=== PATIENT | female | born 1950 | race Caucasian/White ===

== ENCOUNTER 2017-11-04 20:15 | Outpatient (REF) | payer MEDICARE, BC, SELFPAY ==
[2017-11-04 21:07] LABS: HCT 43.4 % (36.0-46.0); Mean Corp. HGB Concentration 34.6 g/dL (32.0-36.0); Mean Corpuscular Hemoglobin 30.5 pg (27.0-33.0); Mean Corpuscular Volume 88.2 fL (80-95); Mean Platelet Volume 10.8 fL (8.0-11.0); Platelet Count 245 x1000/uL (130-400); RBC 4.92 m/cumm (4.00-5.20); RBC Distribution Width 12.8 % (11.7-14.6); White Blood Cell Count 5.22 k/cumm (4.4-10.8)
[2017-11-04 21:49] LABS: ALT 23 U/L (12-78); AST 17 U/L (15-37); Albumin 3.8 g/dL (3.4-5.0); Alkaline Phosphatase 80 U/L (46-116); Anion Gap 11.3 mmol/L (3-11); BUN 9 mg/dL (7-18); Bilirubin, Total 0.3 mg/dL (0.2-1.0); CO2 24.7 mmol/L (21.0-32.0); CREATININE 0.64 mg/dL (0.55-1.02); Calcium 8.8 mg/dL (8.5-10.1); Chloride 105 mmol/L (98-107); Glucose 100 mg/dL (70-100); Potassium 3.6 mmol/L (3.5-5.1); Sodium 141 mmol/L (136-145); TSH 6.13 uIU/mL (0.358-3.74)
== END 2017-11-04 20:16 ==
LOC: NCHCN 20:15
PROVIDERS: PCP Internal Medicine; Visit Provider Internal Medicine
DX: R53.83 Other fatigue (principal); R23.8 Other skin changes; I73.9 Peripheral vascular disease, unspecified; R11.0 Nausea
CPT/HCPCS: 80053; 85027; 84443; 85610

== ENCOUNTER 2017-12-18 09:30 | Outpatient (CLI) | payer MEDICARE, BC, SELFPAY ==
--- NOTE | 2017-12-18 11:37 | DI.RAD_ITS ---
SYMPTOMS/DIAGNOSIS: INTERMITTENT PAIN, R52, H/O BREAST CA, Z85.3 RIGHT HIP AND PELVIS: The pelvic bones are intact. The right hip is unremarkable. Evaluation of the femur reveals an old healed fracture involving the proximal femoral shaft. Intramedullary ernst and screw fixation device in place. In addition there is an evident TKR in good position. No localized area of osteosclerosis, osteolysis or bony expansion is seen.
== END 2017-12-18 09:50 ==
PROVIDERS: PCP Internal Medicine; Visit Provider Internal Medicine
DX: M25.551 Pain in right hip (principal); Z96.651 Presence of right artificial knee joint; Z85.3 Personal history of malignant neoplasm of breast
CPT/HCPCS: 73502

== ENCOUNTER 2017-12-25 20:33 | Outpatient (REF) | payer MEDICARE, BC, SELFPAY | END 2017-12-25 20:53 | LOC: NCHCN 20:33 | PROVIDERS: PCP Internal Medicine; Visit Provider Internal Medicine | DX: E03.9 Hypothyroidism, unspecified (principal) | CPT/HCPCS: 84443 ==

== ENCOUNTER 2018-01-05 08:51 | Emergency (ER) | payer MEDICARE, BC, SELFPAY ==
[2018-01-05 08:56] VITALS: BP 150/83; PULSE 78; RESP 17; TEMP 36.7; O2SAT 96
--- NOTE | 2018-01-05 09:41 | W.ED.GENAD ---
Discharge Plan Disposition Patient Disposition: [facility] Condition: Serious Discharge Details Chief Complaint: PsychEval Clinical Impression: Suicidal thoughts Primary Care Provider: Ag Trent ED Provider: Noe Pearce Home Meds and New Rx's Prescriptions: Continue multivitamin [Daily Multiple] 1 EACH tablet 1 ea PO DAILY RF: 0 pravastatin 40 MG tablet 40 mg PO DAILY RF: 0 triazolam 0.125 MG tablet 0.125 mg PO PRN RF: 0 omeprazole 20 MG capsule,delayed release(DR/EC) 20 mg PO PRN RF: 0 aspirin [Aspirin Low-Strength] 81 MG tablet,chewable 81 mg PO DAILY RF: 0 diazepam 5 MG tablet 5 mg PO QD PRN RF: 0 cholecalciferol (vitamin D3) 2,000 UNIT tablet 1,000 unit PO RF: 0 levothyroxine [Synthroid] 200 MCG tablet 200 mcg PO DAILY RF: 0 tamoxifen 10 MG tablet 20 mg PO DAILY RF: 0 Discharge Instructions Referrals: Ag Trent MD [Primary Care Provider] - Discharge Data Discharge Date/Time-TO BE ENTERED AT DEPARTURE: 01/06/18 09:42 Medical Decision Making <Jasmyne Pearce MD - Last Filed: 01/13/18 12:20> Narda Rivera 7-year-old woman with history of breast cancer 3 years ago now in remission, GERD, hypothyroidism, depression/anxiety presenting to the emergency department with depression over the past 2 months and suicidal ideation with plan to kill herself by slitting her wrist. On exam patient is well and nontoxic-appearing, calm and cooperative. There are no apparent hallucinations, no melody. Exam/history not consistent with psychosis, acute non-psychiatric intracranial pathology. Will screen for metabolic derangements. Plan for mental health evaluation. 1-1 ordered, powerhouse engineer made aware, mental health contacted. Labs okay. After mental health assessment, plan for Pt to be voluntary inpt for SI. Pt signed out to Dr. Huston with placement in facility pending. Clinical Impression: suidalicity Disposition: still a patient Medical Records Medical records reviewed: Yes I reviewed the patient's medical records. Lab Data Lab results reviewed: Yes I reviewed the patient's lab results. Laboratory Tests Range/Units 01/05/18 01/05/18 01/05/18 09:00 09:00 10:10 WBC (4.4-10.8) k/cumm RBC (4.00-5.20) m/cumm Hgb (12.0-15.5) g/dL Hct (36.0-46.0) % MCV (80-95) fL MCH (27.0-33.0) pg MCHC (32.0-36.0) g/dL RDW (11.7-14.6) % Plt Count (130-400) x1000/uL MPV (8.0-11.0) fL Immature Gran % Neutrophils % Lymphocytes % Monocytes % Eosinophils % Basophils % Absolute Neutrophils (1.2-6.7) k/cumm Absolute Lymphocytes (1.2-3.4) k/cumm Absolute Monocytes (0.11-0.7) k/cumm Absolute Eosinophils (0.0-0.7) k/cumm Absolute Basophils (0.0-0.2) k/cumm Sodium (136-145) mmol/L 139 Potassium (3.5-5.1) mmol/L 3.9 Chloride (98-107) mmol/L 106 Carbon Dioxide (21.0-32.0) mmol/L 26.7 Anion Gap (3-11) mmol/L 6.3 BUN (7-18) mg/dL 13 Creatinine (0.55-1.02) mg/dL 0.66 Estimated GFR/1.73 m2 (mL/min/1.73m2) >= 60.00 Glucose (70-100) mg/dL 105 H Calcium (8.5-10.1) mg/dL 8.3 L Total Bilirubin (0.2-1.0) mg/dL 0.4 AST (15-37) U/L 16 ALT (12-78) U/L 18 Alkaline Phosphatase (46-116) U/L 74 Total Protein (6.4-8.2) g/dL 6.6 Albumin (3.4-5.0) g/dL 3.2 L TSH (0.358-3.74) uIU/mL 5.38 H Free T4 (0.76-1.46) ng/dL 1.45 Urine Color (Yellow) Yellow Urine Clarity Clear Urine pH (5-8) 6.0 Ur Specific [place] (1.005-1.025) >= 1.030 H Urine Protein (Negative) mg/dL Negative Urine Ketones (Negative) mg/dL Negative Urine Blood (Negative) Trace-lysed H Urine Nitrite (Negative) Negative Urine Bilirubin (Negative) Negative Urine Urobilinogen (Up TO 0.2) EU/dL 0.2 Ur Leukocyte Esterase (Negative) Negative Urine RBC Not Applicable Urine WBC Not Applicable Ur Epithelial Cells (Negative) HPF Many Urine Crystals Not Applicable Urine Bacteria Not Applicable Urine Mucus Not Applicable Ur Culture Indicated? No/sq. contamination Urine Glucose (Negative) mg/dL Negative Urine Opiates Screen (Negative) Negative Urine Methadone Screen (Negative) Negative Acetaminophen (10-30) ug/mL < 2 L Ur Barbiturates Screen (Negative) Negative Ur Tricyclics Screen (Negative) Negative Ur Amphetamines Screen (Negative) Negative U Benzodiazepines Scrn (Negative) Negative Urine Cocaine Screen (Negative) Negative Ur THC Screen (Negative) Positive Range/Units 01/05/18 10:10 WBC (4.4-10.8) k/cumm 4.11 L RBC (4.00-5.20) m/cumm 4.82 Hgb (12.0-15.5) g/dL 14.7 Hct (36.0-46.0) % 42.1 MCV (80-95) fL 87.3 MCH (27.0-33.0) pg 30.5 MCHC (32.0-36.0) g/dL 34.9 RDW (11.7-14.6) % 12.3 Plt Count (130-400) x1000/uL 227 MPV (8.0-11.0) fL 10.0 Immature Gran % 0.2 Neutrophils % 58.5 Lymphocytes % 28.5 Monocytes % 10.9 Eosinophils % 1.7 Basophils % 0.2 Absolute Neutrophils (1.2-6.7) k/cumm 2.40 Absolute Lymphocytes (1.2-3.4) k/cumm 1.17 L Absolute Monocytes (0.11-0.7) k/cumm 0.45 Absolute Eosinophils (0.0-0.7) k/cumm 0.07 Absolute Basophils (0.0-0.2) k/cumm 0.01 Sodium (136-145) mmol/L Potassium (3.5-5.1) mmol/L Chloride (98-107) mmol/L Carbon Dioxide (21.0-32.0) mmol/L Anion Gap (3-11) mmol/L BUN (7-18) mg/dL Creatinine (0.55-1.02) mg/dL Estimated GFR/1.73 m2 (mL/min/1.73m2) Glucose (70-100) mg/dL Calcium (8.5-10.1) mg/dL Total Bilirubin (0.2-1.0) mg/dL AST (15-37) U/L ALT (12-78) U/L Alkaline Phosphatase (46-116) U/L Total Protein (6.4-8.2) g/dL Albumin (3.4-5.0) g/dL TSH (0.358-3.74) uIU/mL Free T4 (0.76-1.46) ng/dL Urine Color (Yellow) Urine Clarity Urine pH (5-8) Ur Specific [place] (1.005-1.025) Urine Protein (Negative) mg/dL Urine Ketones (Negative) mg/dL Urine Blood (Negative) Urine Nitrite (Negative) Urine Bilirubin (Negative) Urine Urobilinogen (Up TO 0.2) EU/dL Ur Leukocyte Esterase (Negative) Urine RBC Urine WBC Ur Epithelial Cells (Negative) HPF Urine Crystals Urine Bacteria Urine Mucus Ur Culture Indicated? Urine Glucose (Negative) mg/dL Urine Opiates Screen (Negative) Urine Methadone Screen (Negative) Acetaminophen (10-30) ug/mL Ur Barbiturates Screen (Negative) Ur Tricyclics Screen (Negative) Ur Amphetamines Screen (Negative) U Benzodiazepines Scrn (Negative) Urine Cocaine Screen (Negative) Ur THC Screen (Negative) ECG Data Attestation: I personally reviewed and interpreted this ECG (s) as follows: Interpretation: EKG shows normal sinus rhythm at 69 with normal axis, no acute ischemic changes, no STEMI <Ibrahima Huston MD - Last Filed: 01/05/18 18:32> Received signout from Dr. Reny Pearce. Please see her note regarding patient's presentation and workup. Patient continues to await voluntary placement for major depression and suicidality. She is been pleasant interactive with staff throughout the evening shift. She states that she does Ambien at night for sleep and states that given her poor sleep she would like some for this evening, I feel this is appropriate and will order the nighttime med. She is stable and will be signed out to the oncoming overnight physician pending further disposition. HPI <Jasmyne Pearce MD - Last Filed: 01/13/18 12:20> General Mode of arrival: ambulatory. Date/Time Provider Initiated Documentation: 01/05/18 09:15. Limitations to Documentation: no limitations. Information obtained by: patient. HPI Narrative: Narda Rivera is a 67-year-old woman with history of GERD, hypothyroidism, breast cancer 3 years ago now in remission, depression/anxiety presenting to the emergency department with suicidal ideation. Patient reports that over the past 2 months she has become increasingly depressed. She has been on Zoloft and Prozac for this but has stopped both medications as she has side effects from them and they do not seem to help her. Patient reports that her depression has reached a point where she is constantly thinking about suicide. She reports that the only way I can do it would be to slit my wrists. She reports that she does own a gun, but she had a friend of hers hide it somewhere on her property and she does not know where it is. Patient reports that she has lived alone for the past 10 years, currently has a house meet and has been living with her for the past 6 months, although he is out of town over the past few days. She gets along well with this person and they are not romantically involved. She reports that she has some strong social ties in the community but does not have family members locally. She sees a therapist, Ramon Madrid, for her depression, but she is only able to see him every 2 weeks because of his full schedule. She reports that she has had a queasy stomach for the past 2 months, and this coincides with her worsening depression. That is, on days when she feels more depressed, her stomach queasiness is worse. She denies any pain, fever, vomiting/diarrhea/constipation/urinary symptoms, cough, shortness of breath. Feels otherwise in her usual state of health. Has been prescribed Effexor but has not started taking it yet. Related Data Home Medications Medication Instructions Recorded Confirmed aspirin [Aspirin Low-Strength] 81 mg PO DAILY tab-cap 12/23/14 01/05/18 cholecalciferol (vitamin D3) 1,000 unit PO 12/23/14 diazepam 5 mg PO QD PRN 12/23/14 01/05/18 multivitamin [Daily Multiple] 1 ea PO DAILY 12/23/14 01/05/18 omeprazole 20 mg PO PRN tab-cap 12/23/14 01/05/18 pravastatin 40 mg PO DAILY tab-cap 12/23/14 01/05/18 triazolam 0.125 mg PO PRN tab-cap 12/23/14 01/05/18 levothyroxine [Synthroid] 200 mcg PO DAILY tab-cap 02/13/15 01/05/18 tamoxifen 20 mg PO DAILY tab-cap 02/27/16 01/05/18 Allergies Allergy/AdvReac Type Severity Reaction Status Date / Time morphine AdvReac Severe Nausea/Vomi Unverified 09/19/16 09:14 ting General Stated Complaint: PsychEval DREW: 2 Review of Systems <Jasmyne Pearce MD - Last Filed: 01/13/18 12:20> Review of Systems Constitutional: denies fevers Eyes: denies eye pain ENT: denies facial pain, dental pain, sore throat Cardiovascular: denies chest pain, edema Respiratory: denies SOB, cough GI: denies abdominal pain, vomiting, diarrhea, reports queasiness : denies flank pain MSK: denies back pain, neck pain, arthralgias, myalgias Skin: denies rash Neuro: denies headaches, lightheadedness, weakness Psych: denies hallucinations, reports depression, SI Exam <Jasmyne Pearce MD - Last Filed: 01/13/18 12:20> Narrative Exam Narrative: Constitutional: well and [id number], pleasant, conversing normally HENT: head atraumatic, normocephalic normal inspection, mucous membranes moist Eyes: conjunctiva normal, sclera normal, pupils 3mm b/l Neck: no stridor, normal ROM, trachea midline Chest: normal inspection Resp: normal work of breathing, LCTAB Cardio: normal rate, normal rhythm, no murmur appreciated GI: abdomen soft, non-tender, non-distended Skin: warm, dry, normal color, no rash Neuro: alert, not altered, grossly non-focal, normal tone Ext: no edema Psych: normal mood, normal affect, normal behavior Course <Jasmyne Pearce MD - Last Filed: 01/13/18 12:20> Vital Signs Temperature 36.7 C 01/05/18 08:56 Pulse 78 01/05/18 08:56 Respiratory Rate 17 01/05/18 08:56 Blood Pressure 150/83 H 01/05/18 08:56 Pulse Oximetry 96 01/05/18 08:56 Temperature 36.7 C 01/05/18 08:56 Pulse 78 01/05/18 08:56 Respiratory Rate 17 01/05/18 08:56 Respiratory Effort 01/05/18 08:59 Blood Pressure 150/83 H 01/05/18 08:56 Pulse Oximetry 96 01/05/18 08:56 Oxygen Delivery Method Room Air 01/05/18 08:56 Oxygen Flow Rate 0 01/05/18 08:56 Pain Level 0 01/05/18 08:56 Sign Out <Jasmyne Pearce MD - Last Filed: 01/13/18 12:20> Sign Out Data: Sign Out Comment: Patient signed out to Dr. Huston pending psychiatric bed placement Last updated by Jasmyne Pearce MD at 01/05/18 16:58
[2018-01-05 09:46] LABS: Bilirubin Negative (Negative); Blood Trace-lysed (Negative); Clarity Clear; Glucose Negative (Negative); Ketones Negative (Negative); Leukocyte Esterase Negative (Negative); Nitrite Negative (Negative); Specific Gravity >= 1.030 (1.005-1.025); Urobilinogen 0.2 EU/dL (Up TO 0.2)
--- NOTE | 2018-01-05 09:59 | ED.GENADUL_ITS ---
Discharge Plan Disposition Patient Disposition: [facility] Condition: Serious Discharge Details Chief Complaint: PsychEval Clinical Impression: Suicidal thoughts Primary Care Provider: Ag Trent ED Provider: Noe Pearce Home Meds and New Rx's Prescriptions: Continue multivitamin [Daily Multiple] 1 EACH tablet 1 ea PO DAILY RF: 0 pravastatin 40 MG tablet 40 mg PO DAILY RF: 0 triazolam 0.125 MG tablet 0.125 mg PO PRN RF: 0 omeprazole 20 MG capsule,delayed release(DR/EC) 20 mg PO PRN RF: 0 aspirin [Aspirin Low-Strength] 81 MG tablet,chewable 81 mg PO DAILY RF: 0 diazepam 5 MG tablet 5 mg PO QD PRN RF: 0 cholecalciferol (vitamin D3) 2,000 UNIT tablet 1,000 unit PO RF: 0 levothyroxine [Synthroid] 200 MCG tablet 200 mcg PO DAILY RF: 0 tamoxifen 10 MG tablet 20 mg PO DAILY RF: 0 Discharge Instructions Referrals: Ag Trent MD [Primary Care Provider] - Discharge Data Discharge Date/Time-TO BE ENTERED AT DEPARTURE: 01/06/18 09:42 Medical Decision Making <Jasmyne Pearce MD - Last Filed: 01/13/18 12:20> Narda Rivera 7-year-old woman with history of breast cancer 3 years ago now in remission, GERD, hypothyroidism, depression/anxiety presenting to the emergency department with depression over the past 2 months and suicidal ideation with plan to kill herself by slitting her wrist. On exam patient is well and nontoxic-appearing, calm and cooperative. There are no apparent hallucinations, no melody. Exam/history not consistent with psychosis, acute non-psychiatric intracranial pathology. Will screen for metabolic derangements. Plan for mental health evaluation. 1-1 ordered, linen room houseperson made aware, mental health contacted. Labs okay. After mental health assessment, plan for Pt to be voluntary inpt for SI. Pt signed out to Dr. Huston with placement in facility pending. Clinical Impression: suidalicity Disposition: still a patient Medical Records Medical records reviewed: Yes I reviewed the patient's medical records. Lab Data Lab results reviewed: Yes I reviewed the patient's lab results. Laboratory Tests Range/Units 01/05/18 01/05/18 01/05/18 09:00 09:00 10:10 WBC (4.4-10.8) k/cumm RBC (4.00-5.20) m/cumm Hgb (12.0-15.5) g/dL Hct (36.0-46.0) % MCV (80-95) fL MCH (27.0-33.0) pg MCHC (32.0-36.0) g/dL RDW (11.7-14.6) % Plt Count (130-400) x1000/uL MPV (8.0-11.0) fL Immature Gran % Neutrophils % Lymphocytes % Monocytes % Eosinophils % Basophils % Absolute Neutrophils (1.2-6.7) k/cumm Absolute Lymphocytes (1.2-3.4) k/cumm Absolute Monocytes (0.11-0.7) k/cumm Absolute Eosinophils (0.0-0.7) k/cumm Absolute Basophils (0.0-0.2) k/cumm Sodium (136-145) mmol/L 139 Potassium (3.5-5.1) mmol/L 3.9 Chloride (98-107) mmol/L 106 Carbon Dioxide (21.0-32.0) mmol/L 26.7 Anion Gap (3-11) mmol/L 6.3 BUN (7-18) mg/dL 13 Creatinine (0.55-1.02) mg/dL 0.66 Estimated GFR/1.73 m2 (mL/min/1.73m2) >= 60.00 Glucose (70-100) mg/dL 105 H Calcium (8.5-10.1) mg/dL 8.3 L Total Bilirubin (0.2-1.0) mg/dL 0.4 AST (15-37) U/L 16 ALT (12-78) U/L 18 Alkaline Phosphatase (46-116) U/L 74 Total Protein (6.4-8.2) g/dL 6.6 Albumin (3.4-5.0) g/dL 3.2 L TSH (0.358-3.74) uIU/mL 5.38 H Free T4 (0.76-1.46) ng/dL 1.45 Urine Color (Yellow) Yellow Urine Clarity Clear Urine pH (5-8) 6.0 Ur Specific [place] (1.005-1.025) >= 1.030 H Urine Protein (Negative) mg/dL Negative Urine Ketones (Negative) mg/dL Negative Urine Blood (Negative) Trace-lysed H Urine Nitrite (Negative) Negative Urine Bilirubin (Negative) Negative Urine Urobilinogen (Up TO 0.2) EU/dL 0.2 Ur Leukocyte Esterase (Negative) Negative Urine RBC Not Applicable Urine WBC Not Applicable Ur Epithelial Cells (Negative) HPF Many Urine Crystals Not Applicable Urine Bacteria Not Applicable Urine Mucus Not Applicable Ur Culture Indicated? No/sq. contamination Urine Glucose (Negative) mg/dL Negative Urine Opiates Screen (Negative) Negative Urine Methadone Screen (Negative) Negative Acetaminophen (10-30) ug/mL < 2 L Ur Barbiturates Screen (Negative) Negative Ur Tricyclics Screen (Negative) Negative Ur Amphetamines Screen (Negative) Negative U Benzodiazepines Scrn (Negative) Negative Urine Cocaine Screen (Negative) Negative Ur THC Screen (Negative) Positive Range/Units 01/05/18 10:10 WBC (4.4-10.8) k/cumm 4.11 L RBC (4.00-5.20) m/cumm 4.82 Hgb (12.0-15.5) g/dL 14.7 Hct (36.0-46.0) % 42.1 MCV (80-95) fL 87.3 MCH (27.0-33.0) pg 30.5 MCHC (32.0-36.0) g/dL 34.9 RDW (11.7-14.6) % 12.3 Plt Count (130-400) x1000/uL 227 MPV (8.0-11.0) fL 10.0 Immature Gran % 0.2 Neutrophils % 58.5 Lymphocytes % 28.5 Monocytes % 10.9 Eosinophils % 1.7 Basophils % 0.2 Absolute Neutrophils (1.2-6.7) k/cumm 2.40 Absolute Lymphocytes (1.2-3.4) k/cumm 1.17 L Absolute Monocytes (0.11-0.7) k/cumm 0.45 Absolute Eosinophils (0.0-0.7) k/cumm 0.07 Absolute Basophils (0.0-0.2) k/cumm 0.01 Sodium (136-145) mmol/L Potassium (3.5-5.1) mmol/L Chloride (98-107) mmol/L Carbon Dioxide (21.0-32.0) mmol/L Anion Gap (3-11) mmol/L BUN (7-18) mg/dL Creatinine (0.55-1.02) mg/dL Estimated GFR/1.73 m2 (mL/min/1.73m2) Glucose (70-100) mg/dL Calcium (8.5-10.1) mg/dL Total Bilirubin (0.2-1.0) mg/dL AST (15-37) U/L ALT (12-78) U/L Alkaline Phosphatase (46-116) U/L Total Protein (6.4-8.2) g/dL Albumin (3.4-5.0) g/dL TSH (0.358-3.74) uIU/mL Free T4 (0.76-1.46) ng/dL Urine Color (Yellow) Urine Clarity Urine pH (5-8) Ur Specific [place] (1.005-1.025) Urine Protein (Negative) mg/dL Urine Ketones (Negative) mg/dL Urine Blood (Negative) Urine Nitrite (Negative) Urine Bilirubin (Negative) Urine Urobilinogen (Up TO 0.2) EU/dL Ur Leukocyte Esterase (Negative) Urine RBC Urine WBC Ur Epithelial Cells (Negative) HPF Urine Crystals Urine Bacteria Urine Mucus Ur Culture Indicated? Urine Glucose (Negative) mg/dL Urine Opiates Screen (Negative) Urine Methadone Screen (Negative) Acetaminophen (10-30) ug/mL Ur Barbiturates Screen (Negative) Ur Tricyclics Screen (Negative) Ur Amphetamines Screen (Negative) U Benzodiazepines Scrn (Negative) Urine Cocaine Screen (Negative) Ur THC Screen (Negative) ECG Data Attestation: I personally reviewed and interpreted this ECG (s) as follows: Interpretation: EKG shows normal sinus rhythm at 69 with normal axis, no acute ischemic changes, no STEMI <Ibrahima Huston MD - Last Filed: 01/05/18 18:32> Received signout from Dr. Reny Pearce. Please see her note regarding patient' s presentation and workup. Patient continues to await voluntary placement for major depression and suicidality. She is been pleasant interactive with staff throughout the evening shift. She states that she does Ambien at night for sleep and states that given her poor sleep she would like some for this evening , I feel this is appropriate and will order the nighttime med. She is stable and will be signed out to the oncoming overnight physician pending further disposition. HPI <Jasmyne Pearce MD - Last Filed: 01/13/18 12:20> General Mode of arrival: ambulatory . Date/Time Provider Initiated Documentation: 01/05/18 09:15 . Limitations to Documentation: no limitations . Information obtained by: patient . HPI Narrative: Narda Rivera is a 67-year-old woman with history of GERD, hypothyroidism, breast cancer 3 years ago now in remission, depression/anxiety presenting to the emergency department with suicidal ideation. Patient reports that over the past 2 months she has become increasingly depressed. She has been on Zoloft and Prozac for this but has stopped both medications as she has side effects from them and they do not seem to help her. Patient reports that her depression has reached a point where she is constantly thinking about suicide. She reports that the only way I can do it would be to slit my wrists . She reports that she does own a gun, but she had a friend of hers hide it somewhere on her property and she does not know where it is. Patient reports that she has lived alone for the past 10 years, currently has a house meet and has been living with her for the past 6 months, although he is out of town over the past few days. She gets along well with this person and they are not romantically involved. She reports that she has some strong social ties in the community but does not have family members locally. She sees a therapist, Ramon Madrid, for her depression, but she is only able to see him every 2 weeks because of his full schedule. She reports that she has had a queasy stomach for the past 2 months, and this coincides with her worsening depression. That is, on days when she feels more depressed, her stomach queasiness is worse. She denies any pain, fever, vomiting/diarrhea/constipation/urinary symptoms, cough, shortness of breath. Feels otherwise in her usual state of health. Has been prescribed Effexor but has not started taking it yet. Related Data Home Medications Medication Instructions Recorded Confirmed aspirin [Aspirin Low-Strength] 81 mg PO DAILY tab-cap 12/23/14 01/05/18 cholecalciferol (vitamin D3) 1,000 unit PO 12/23/14 diazepam 5 mg PO QD PRN 12/23/14 01/05/18 multivitamin [Daily Multiple] 1 ea PO DAILY 12/23/14 01/05/18 omeprazole 20 mg PO PRN tab-cap 12/23/14 01/05/18 pravastatin 40 mg PO DAILY tab-cap 12/23/14 01/05/18 triazolam 0.125 mg PO PRN tab-cap 12/23/14 01/05/18 levothyroxine [Synthroid] 200 mcg PO DAILY tab-cap 02/13/15 01/05/18 tamoxifen 20 mg PO DAILY tab-cap 02/27/16 01/05/18 Allergies Allergy/AdvReac Type Severity Reaction Status Date / Time morphine AdvReac Severe Nausea/Vomi Unverified 09/19/16 09:14 ting General Stated Complaint: PsychEval DREW: 2 Review of Systems <Jasmyne Pearce MD - Last Filed: 01/13/18 12:20> Review of Systems Constitutional: denies fevers Eyes: denies eye pain ENT: denies facial pain, dental pain, sore throat Cardiovascular: denies chest pain, edema Respiratory: denies SOB, cough GI: denies abdominal pain, vomiting, diarrhea, reports queasiness : denies flank pain MSK: denies back pain, neck pain, arthralgias, myalgias Skin: denies rash Neuro: denies headaches, lightheadedness, weakness Psych: denies hallucinations, reports depression, SI Exam <Jasmyne Pearce MD - Last Filed: 01/13/18 12:20> Narrative Exam Narrative: Constitutional: well and [id number], pleasant, conversing normally HENT: head atraumatic, normocephalic normal inspection, mucous membranes moist Eyes: conjunctiva normal, sclera normal, pupils 3mm b/l Neck: no stridor, normal ROM, trachea midline Chest: normal inspection Resp: normal work of breathing, LCTAB Cardio: normal rate, normal rhythm, no murmur appreciated GI: abdomen soft, non-tender, non-distended Skin: warm, dry, normal color, no rash Neuro: alert, not altered, grossly non-focal, normal tone Ext: no edema Psych: normal mood, normal affect, normal behavior Course <Jasmyne Pearce MD - Last Filed: 01/13/18 12:20> Vital Signs Temperature 36.7 C 01/05/18 08:56 Pulse 78 01/05/18 08:56 Respiratory Rate 17 01/05/18 08:56 Blood Pressure 150/83 H 01/05/18 08:56 Pulse Oximetry 96 01/05/18 08:56 Temperature 36.7 C 01/05/18 08:56 Pulse 78 01/05/18 08:56 Respiratory Rate 17 01/05/18 08:56 Respiratory Effort 01/05/18 08:59 Blood Pressure 150/83 H 01/05/18 08:56 Pulse Oximetry 96 01/05/18 08:56 Oxygen Delivery Method Room Air 01/05/18 08:56 Oxygen Flow Rate 0 01/05/18 08:56 Pain Level 0 01/05/18 08:56 Sign Out <Jasmyne Pearce MD - Last Filed: 01/13/18 12:20> Sign Out Data: Sign Out Comment: Patient signed out to Dr. Huston pending psychiatric bed placement Last updated by Jasmyne Pearce MD at 01/05/18 16:58
[2018-01-05 10:01] LABS: *AMPHETAMINES SCREEN URINE Negative (Negative); *BARBITURATES SCREEN URINE Negative (Negative); *BENZODIAZEPINES SCREEN URINE Negative (Negative); Cannabinoids THC POSITIVE (Negative); Cocaine Screen,Urine Negative (Negative); METHADONE URINE SCREEN Negative (Negative); OPIATES URINE SCREEN Negative (Negative)
[2018-01-05 10:06] LABS: C & S Indicated? No/Sq. Contamination; Epithelial Cells Many HPF (Negative)
[2018-01-05 10:09] LABS: Tricyclic Antidepressants Negative (Negative)
[2018-01-05 10:20] LABS: Abs Immature Grans 0.01 k/cumm (0.0-0.09); Absolute Basophil Count 0.01 k/cumm (0.0-0.2); Absolute Eosinophil Count 0.07 k/cumm (0.0-0.7); Absolute Lymphocyte Count 1.17 k/cumm (1.2-3.4); Absolute Monocyte Count 0.45 k/cumm (0.11-0.7); Basophils % 0.2; Eosinophils % 1.7; HCT 42.1 % (36.0-46.0); HGB 14.7 g/dL (12.0-15.5); Immature Grans % 0.2; Lymphocytes % 28.5; Mean Corp. HGB Concentration 34.9 g/dL (32.0-36.0); Mean Corpuscular Hemoglobin 30.5 pg (27.0-33.0); Mean Corpuscular Volume 87.3 fL (80-95); Monocytes % 10.9; Neutrophils % 58.5; Platelet Count 227 x1000/uL (130-400); RBC 4.82 m/cumm (4.00-5.20); RBC Distribution Width 12.3 % (11.7-14.6); White Blood Cell Count 4.11 k/cumm (4.4-10.8)
[2018-01-05 10:42] LABS: ALT 18 U/L (12-78); AST 16 U/L (15-37); Albumin 3.2 g/dL (3.4-5.0); Alkaline Phosphatase 74 U/L (46-116); Anion Gap 6.3 mmol/L (3-11); BUN 13 mg/dL (7-18); Bilirubin, Total 0.4 mg/dL (0.2-1.0); CO2 26.7 mmol/L (21.0-32.0); CREATININE 0.66 mg/dL (0.55-1.02); Calcium 8.3 mg/dL (8.5-10.1); Chloride 106 mmol/L (98-107); Glucose 105 mg/dL (70-100); Potassium 3.9 mmol/L (3.5-5.1); Sodium 139 mmol/L (136-145); TSH (W/Ref FT4) 5.38 uIU/mL (0.358-3.74); Total Protein 6.6 g/dL (6.4-8.2)
[2018-01-05 10:45] LABS: Acetaminophen < 2 ug/mL (10-30)
[2018-01-05 11:43] LABS: FREE T4 1.45 ng/dL (0.76-1.46)
--- NOTE | 2018-01-05 11:50 | PDOC.ERCMPRO ---
Care Management Progress Note 01/05 at 1140-Discussion with Dr. Colten Pearce pertaining to psychiatric consult. At this time, Dr. Pearce is having mental health come in and evaluate the patient. Discussed holding care plan with Dr. Pearce until patient evaluated by mental health. Holding care plan distributed to appropriate staff. Discussion with Katy Nursing Convention Planner who is calling in a CPSO. Will huddle once mental health has evaluated patient and formulate a new care plan, Emergent Holding Care Plan Narda Nicole 01/05/18 1. Suicide Precautions 2. Patient to be in paper clothing 3. Comfort bath system for personal hygiene 4. No personal belongings in room 5. Finger foods only 6. No telephone 7. No visitors 8. Supervised Bathroom Privileges 9. Patient to have one on one, licensed sitter, HEAT TREAT OPERATOR, PHLEBOTOMY TECH, screed operator. 10. May have crayons, paper, and activities (if appropriate) from the Mental Health Activity Cart in ED This is a holding care plan only. This Care Plan will remain in effect until Mental Health evaluates, huddles with staff, and new care plan is developed.
--- NOTE | 2018-01-05 11:54 | CMPROGNOTE_ITS ---
Care Management Progress Note 01/05 at 1140-Discussion with Dr. Colten Pearce pertaining to psychiatric consult. At this time, Dr. Pearce is having mental health come in and evaluate the patient. Discussed holding care plan with Dr. Pearce until patient evaluated by mental health. Holding care plan distributed to appropriate staff. Discussion with Katy Nursing Disabilities Caregiver who is calling in a CPSO. Will huddle once mental health has evaluated patient and formulate a new care plan, Emergent Holding Care Plan Narda Nicole 01/05/18 1. Suicide Precautions 2. Patient to be in paper clothing 3. Comfort bath system for personal hygiene 4. No personal belongings in room 5. Finger foods only 6. No telephone 7. No visitors 8. Supervised Bathroom Privileges 9. Patient to have one on one, licensed sitter, WASTE MINIMIZATION TECHNICIAN, AUTOMOTIVE SPECIALTY TECHNICIAN, precision thread grinder operator. 10. May have crayons, paper, and activities (if appropriate) from the Mental Health Activity Cart in ED This is a holding care plan only. This Care Plan will remain in effect until Mental Health evaluates, huddles with staff, and new care plan is developed.
--- NOTE | 2018-01-05 13:38 | NUR.NOTE ---
Resting in bed speaking with registration. Provided with a banana as per pt request Nursing Note:
[2018-01-05 13:42] VITALS: BP 148/80; PULSE 89; RESP 16; TEMP 36.7; O2SAT 99
--- NOTE | 2018-01-05 13:49 | PDOC.MHCN ---
Date of service: 01/05/18 Time of Service: 13:49 Mental Health Crisis Note Presenting Issue How did you arrive at the ED and why did you come: Patient arrived at the Emergency Department for thoughts of suicide. Precipitating Factors Patient is actively suicidal with a plan. She states that she cannot be safe if she goes home. She states that she will slut her wrists as a method of suicide. She cannot identify any life stresses that would exacerbate thoughts/feelings of suicide. She states that she has a good life, that she has friends but she has been feeling more and more depressed. She does state that she feels as if she has not worked though the of her and then the of her boyfriend after her husbands . She states that her only deterrents are her advent friends and her dog. The patient is visibly sad and wants to get help as she doesn't want to feel this way any more. Disposition BEHAVIOR: The client cooperative. She is laying down on the hospital bed talking with this machine sign writer. She is requested that this machine sign writer keep the room lights off. EYE CONTACT: Patient makes direct eye contact MOOD: Sad and tearful at times AFFECT: Appropriate for conversation APPETITE: Patient states that she has not eaten much SLEEP(trouble falling/staying asleep: Patient states that she has only been able to sleep 3-4 hours a night the past few night Plan Due to the patient being actively suicidal with a plan and unable to contract for safety she will remain at the hospital until a bed becomes available at a mental health treatment facility. Signature Clinician's Name/Title: Sandra Stephens [facility] Emergency Clinician
--- NOTE | 2018-01-05 14:03 | PDOC.MHCN_ITS ---
Date of service: 01/05/18 Time of Service: 13:49 Mental Health Crisis Note Presenting Issue How did you arrive at the ED and why did you come: Patient arrived at the Emergency Department for thoughts of suicide. Precipitating Factors Patient is actively suicidal with a plan. She states that she cannot be safe if she goes home. She states that she will slut her wrists as a method of suicide. She cannot identify any life stresses that would exacerbate thoughts/feelings of suicide. She states that she has a good life, that she has friends but she has been feeling more and more depressed. She does state that she feels as if she has not worked though the of her and then the of her boyfriend after her husbands . She states that her only deterrents are her baptist friends and her dog. The patient is visibly sad and wants to get help as she doesn't want to feel this way any more. Disposition BEHAVIOR: The client cooperative. She is laying down on the hospital bed talking with this engineering technical writer. She is requested that this engineering technical writer keep the room lights off. EYE CONTACT: Patient makes direct eye contact MOOD: Sad and tearful at times AFFECT: Appropriate for conversation APPETITE: Patient states that she has not eaten much SLEEP(trouble falling/staying asleep: Patient states that she has only been able to sleep 3-4 hours a night the past few night Plan Due to the patient being actively suicidal with a plan and unable to contract for safety she will remain at the hospital until a bed becomes available at a mental health treatment facility. Signature Clinician's Name/Title: Sandra Stephens [facility] Emergency Clinician
--- NOTE | 2018-01-05 16:25 | NUR.NOTE ---
Resting quietly in bed withg sitter at bedside. Denies needs or distress at this time. VSS Nursing Note:
--- NOTE | 2018-01-05 18:58 | NUR.NOTE ---
Nursing Note: Pt tentaively, scheduled to go to [facility] in the AM as per Edgar RN at the same facility
[2018-01-05 20:06] VITALS: BP 144/80; PULSE 89; RESP 18; TEMP 36.8; O2SAT 99
--- NOTE | 2018-01-05 20:06 | NUR.NOTE ---
Resting quietly in bed with sitter at bedside. Denies needs or distress at this time. Nursing Note:
--- NOTE | 2018-01-05 22:28 | NUR.NOTE ---
Resting quietly in bed with sitter at bedside. Denies additional needs or distress at this time. Updated on status of placement to [facility]. Verbalizes understanding. VSS will continue to monitor. Nursing Note:
--- NOTE | 2018-01-06 00:41 | ED.FU.B_ITS ---
Follow Up Plan: patient signed out to me, pt is in ED as there is not enough patient sitters for patient to be trasnferred upstairs. Mental health will return in the morning to assist in psychiatric bed placement, pt remains stable at this time and has no complaints on my exam. Has no neuro deficits or other findings on exam to suggest underlying medical process to cause her depression/ si. Pt will be signed out to Dr. Pearce pending psychiatric placement
--- NOTE | 2018-01-06 00:52 | NUR.NOTE ---
Nursing Note: Received report from previous shift. Pt is currently asleep. 1:1 patient observer outside room.
--- NOTE | 2018-01-06 07:47 | NUR.NOTE ---
patient eating breakfast at this time. no distress noted. carrying on conversation with staff. pleasant.Nursing Note:
--- NOTE | 2018-01-06 09:07 | PDOC.ERCMPRO ---
Care Management Progress Note 01/06-Called [facility] and spoke with Beba in admissions. Beba stated they have accepted Narda. Beba stated that Dr. Spangler has accepted the patient in transfer but has declined a physician to physician as he has reviewed the chart and states it is a straight forward case. Beba has asked the a nurse to nurse happen as soon as possible, call [phone] and ask for admissions. Beba in admissions will then transfer [facility] nurse to appropriate nurse at [facility]. Dr. Pearce notified of the above. Patient has been made aware of [facility]'s acceptance and is in agreement to going to [facility]. Meron BUTT aware of the above and is currently calling nurse to nurse. Spoke with sheriff Warren, who is arranging transportation. This CM allowed patient to have her IPAD as she needed to let others know she would not be available for meetings today. Dr. Brown, ED provider was in agreement with this.
--- NOTE | 2018-01-06 09:12 | W.ED.FU ---
Care signed out by Dr. Brown: patient medically cleared. Plan to follow-up on mental health crisis and care management regarding inpatient psych treatment. I reassessed the patient and she remains depressed and suicidal. One-to-one observation has been continued. Patient stable. Care management spoke to [facility] - they have agreed to accept the patient in transfer. Accepting physician Dr. Calderon declined physician to physician discussion and will accept. Patient assisted in taking her home medications that she has with her as prescribed..
--- NOTE | 2018-01-06 09:16 | CMPROGNOTE_ITS ---
Care Management Progress Note 01/06-Called [facility] and spoke with Beba in admissions. Beba stated they have accepted Narda. Beba stated that Dr. Spangler has accepted the patient in transfer but has declined a physician to physician as he has reviewed the chart and states it is a straight forward case. Beba has asked the a nurse to nurse happen as soon as possible, call [phone] and ask for admissions. Beba in admissions will then transfer [facility] nurse to appropriate nurse at [facility]. Dr. Pearce notified of the above. Patient has been made aware of [facility]'s acceptance and is in agreement to going to [facility]. Meron BUTT aware of the above and is currently calling nurse to nurse. Spoke with sheriff Warren, who is arranging transportation. This CM allowed patient to have her IPAD as she needed to let others know she would not be available for meetings today. Dr. Brown, ED provider was in agreement with this.
[2018-01-06] MEDS: Pravastatin 40 MG TAB PO (09:21)
[2018-01-06] MEDS: Levothyroxine 200 MCG TAB PO (09:21)
[2018-01-06] MEDS: Aspirin 81 MG CHEW PO (09:21)
== END 2018-01-06 09:42 | disposition short-term general hospital (02) ==
PROVIDERS: Student in an Organized Health Care Education/Training Program; Emergency Provider Emergency Medicine; PCP Internal Medicine
DX: F41.8 Other specified anxiety disorders (principal); R45.851 Suicidal ideations; Z75.1 Person awaiting admission to adequate facility elsewhere
CPT/HCPCS: 36415; 80053; 80307; 93005; 99281; 99284; 80329; 81003; 81015; 84439; 84443; 85025; 93010

== ENCOUNTER 2018-04-10 12:38 | Outpatient (CLI) | payer MEDICARE, BC, SELFPAY ==
[2018-04-10 13:07] LABS: Abs Immature Grans 0.01 k/cumm (0.0-0.09); Absolute Basophil Count 0.02 k/cumm (0.0-0.2); Absolute Eosinophil Count 0.16 k/cumm (0.0-0.7); Absolute Lymphocyte Count 1.27 k/cumm (1.2-3.4); Absolute Monocyte Count 0.44 k/cumm (0.11-0.7); Absolute Neutrophil Count 3.36 k/cumm (1.2-6.7); Basophils % 0.4; HCT 45.1 % (36.0-46.0); HGB 15.6 g/dL (12.0-15.5); Immature Grans % 0.2; Lymphocytes % 24.1; Mean Corp. HGB Concentration 34.6 g/dL (32.0-36.0); Mean Corpuscular Hemoglobin 29.7 pg (27.0-33.0); Mean Corpuscular Volume 85.7 fL (80-95); Mean Platelet Volume 9.6 fL (8.0-11.0); Monocytes % 8.4; Neutrophils % 63.9; Platelet Count 268 x1000/uL (130-400); RBC 5.26 m/cumm (4.00-5.20); White Blood Cell Count 5.26 k/cumm (4.4-10.8)
[2018-04-10 13:17] LABS: ALT 22 U/L (12-78); AST 17 U/L (15-37); Albumin 3.5 g/dL (3.4-5.0); Alkaline Phosphatase 113 U/L (46-116); Anion Gap 9.8 mmol/L (3-11); BUN 15 mg/dL (7-18); Bilirubin, Total 0.3 mg/dL (0.2-1.0); CO2 24.2 mmol/L (21.0-32.0); CREATININE 0.59 mg/dL (0.55-1.02); Calcium 9.6 mg/dL (8.5-10.1); Chloride 105 mmol/L (98-107); Glucose 101 mg/dL (70-100); Potassium 3.9 mmol/L (3.5-5.1); Sodium 139 mmol/L (136-145); Total Protein 7.5 g/dL (6.4-8.2)
== END 2018-04-10 12:58 ==
PROVIDERS: PCP Internal Medicine; Visit Provider Internal Medicine
DX: Z85.3 Personal history of malignant neoplasm of breast (principal)
CPT/HCPCS: 36415; 80053; 85025

== ENCOUNTER 2018-06-09 14:20 | Outpatient (REF) | payer MEDICARE, BC, SELFPAY ==
[2018-06-11 14:14] LABS: Hepatitis C Ab w Rflx HCV PCR Negative (NEGAT)
== END 2018-06-09 14:40 ==
LOC: NCHCN 14:20
PROVIDERS: PCP Internal Medicine; Visit Provider Nurse Practitioner Family
DX: R35.0 Frequency of micturition (principal); Z11.59 Encounter for screening for other viral diseases
CPT/HCPCS: 86803; 87086

== ENCOUNTER 2018-10-29 12:30 | Outpatient (CLI) | payer MEDICARE, BC, SELFPAY ==
[2018-10-29 13:01] LABS: Abs Immature Grans 0.01 k/cumm (0.0-0.09); Absolute Basophil Count 0.01 k/cumm (0.0-0.2); Absolute Eosinophil Count 0.13 k/cumm (0.0-0.7); Absolute Lymphocyte Count 1.18 k/cumm (1.2-3.4); Absolute Monocyte Count 0.48 k/cumm (0.11-0.7); Absolute Neutrophil Count 2.17 k/cumm (1.2-6.7); Basophils % 0.3; Eosinophils % 3.3; HCT 42.2 % (36.0-46.0); HGB 14.8 g/dL (12.0-15.5); Immature Grans % 0.3; Lymphocytes % 29.6; Mean Corp. HGB Concentration 35.1 g/dL (32.0-36.0); Mean Corpuscular Hemoglobin 29.8 pg (27.0-33.0); Mean Corpuscular Volume 85.1 fL (80-95); Mean Platelet Volume 9.6 fL (8.0-11.0); Monocytes % 12.1; Neutrophils % 54.4; Platelet Count 257 x1000/uL (130-400); RBC 4.96 m/cumm (4.00-5.20); RBC Distribution Width 12.5 % (11.7-14.6); White Blood Cell Count 3.98 k/cumm (4.4-10.8)
[2018-10-29 13:16] LABS: ALT 36 U/L (12-78); AST 19 U/L (15-37); Albumin 3.3 g/dL (3.4-5.0); Alkaline Phosphatase 134 U/L (46-116); Anion Gap 8.2 mmol/L (3-11); BUN 20 mg/dL (7-18); Bilirubin, Total 0.2 mg/dL (0.2-1.0); CO2 25.8 mmol/L (21.0-32.0); CREATININE 0.59 mg/dL (0.55-1.02); Calcium 9.1 mg/dL (8.5-10.1); Chloride 105 mmol/L (98-107); Glucose 169 mg/dL (70-100); Potassium 3.6 mmol/L (3.5-5.1); Sodium 139 mmol/L (136-145); Total Protein 7.1 g/dL (6.4-8.2)
== END 2018-10-29 12:50 ==
PROVIDERS: Nurse Practitioner Family; PCP Internal Medicine
DX: C50.912 Malignant neoplasm of unspecified site of left female breast (principal); Z17.0 Estrogen receptor positive status [ER+]
CPT/HCPCS: 36415; 80053; 85025

== ENCOUNTER 2018-11-27 12:25 | Outpatient (REF) | payer MEDICARE, BC, SELFPAY ==
[2018-11-27 21:04] LABS: TSH (W/Ref FT4) 0.02 uIU/mL (0.36-3.74)
[2018-11-27 21:24] LABS: FREE T4 1.56 ng/dL (0.76-1.46)
[2018-11-30 08:06] LABS: Vitamin D 25 Total 37.4 ng/ml (30-100)
== END 2018-11-27 12:45 ==
LOC: NCHCN 12:25
PROVIDERS: PCP Internal Medicine; Visit Provider Internal Medicine
DX: M85.80 Other specified disorders of bone density and structure, unspecified site (principal); E03.9 Hypothyroidism, unspecified; I10 Essential (primary) hypertension; F41.8 Other specified anxiety disorders; Z86.39 Personal history of other endocrine, nutritional and metabolic disease
CPT/HCPCS: 82306; 84439; 84443

== ENCOUNTER 2019-03-12 11:18 | Outpatient (CLI) | payer MEDICARE, BC, SELFPAY ==
--- NOTE | 2019-03-12 12:57 | DI.RAD_ITS ---
EXAM: XR CHEST 2V PA LATERAL INDICATION: CHEST PAIN EXERTIONAL, R07.89. COMPARISON: No exams were available for comparison TECHNIQUE: 2D digital imaging was performed. FINDINGS: Heart size and pulmonary vasculature within normal limits. The lungs are free of infiltrates. No ef fusion or pneumothorax is identified. Age-appropriate degenerative changes are seen in the spine. IMPRESSION: No acute pulmonary process.
[2019-03-12 14:56] LABS: ALT 30 U/L (14-59); AST 20 U/L (15-37); Albumin 3.7 g/dL (3.4-5.0); Alkaline Phosphatase 142 U/L (46-116); Anion Gap 9.4 mmol/L (3-11); BUN 14 mg/dL (7-18); Bilirubin, Total 0.2 mg/dL (0.2-1.0); CO2 26.6 mmol/L (21.0-32.0); CREATININE 0.64 mg/dL (0.55-1.02); Calcium 9.4 mg/dL (8.5-10.1); Chloride 105 mmol/L (98-107); Creatine Kinase 40 U/L (26-192); Glucose 103 mg/dL (74-106); Potassium 3.9 mmol/L (3.5-5.1); Sodium 141 mmol/L (136-145); TSH (W/Ref FT4) 0.18 uIU/mL (0.36-3.74); Total Protein 7.5 g/dL (6.4-8.2)
[2019-03-12 14:58] LABS: Troponin I < 0.05 ng/Ml (<0.06)
[2019-03-12 15:31] LABS: FREE T4 1.57 ng/dL (0.76-1.46)
[2019-03-15 08:39] LABS: Vitamin D 25 Total 41.5 ng/ml (30-100)
== END 2019-03-12 11:38 ==
PROVIDERS: PCP Internal Medicine; Visit Provider Nurse Practitioner Family
DX: R07.89 Other chest pain (principal); R53.83 Other fatigue; M85.80 Other specified disorders of bone density and structure, unspecified site
CPT/HCPCS: 36415; 80053; 82306; 82550; 71046; 84439; 84443; 84484

== ENCOUNTER 2019-03-16 00:42 | Outpatient (CLI) | payer MEDICARE, BC, SELFPAY ==
--- NOTE | 2019-03-16 12:41 | DI.NM_ITS ---
APPROVED REPORT Exam: Exercise Treadmill Patient Location: Out-Patient Room/Bed: Stress Nurse: Oxana Salazar RN BMI: 33.83 Baseline Rhythm: Sinus rhythm. Indications: Exertional chest pain. Medical History Medical History: HTN, Hyperlipidemia Cardiac Medications: Omeprazole. Allergies: Opiods. Coumadin. Lung Sounds: Clear to auscultation Heart Sounds: Regular Stress Test Details Test: Exercise stress testing was performed using a Shravan protocol. Nuclear Acquisition: Rest Tc-99m/Stress Tc-99m 1 day Rest Isotope: Tc-99m Sestamibi. Dose: 11.0 Date: 03/16/2019 Injection Time: 0940 Stress Isotope: Tc-99m Sestamibi. Dose: 34.3 Date: 03/16/2019 Injection Time: 1300 HR Max Heart Rate (APMHR): 150 bpm Resting HR Supine: 63 bpm Target HR (85% APMHR): 127 bpm Resting HR Standin bpm Max HR Achieved: 132 bpm % of APMHR: 88 Recovery HR: 71 bpm HR response to stress: Normal HR response to stress BP Resting BP Supine: 130/100 mmHg Resting BP Standin/100 mmHg Max BP: 180/110 mmHg Recovery BP: 160/100 mmHg BP response to stress: Normal blood pressure response to stress. ECG Resting ECG: Sinus rhythm. Flat or neg T-waves in sinus rhythm ST Change: none Stress ECG: Sinus Tachycardia ST Change: Downward sloping horizontal ST depression in the inferior leads. ST elevation in aVR Lead(s): II, III, aVF, aVR Maximum ST Deviation: 2 mm Arrhythmia: VPC's Recovery ECG: Sinus Rhythm Recovery ST Deviation: 2 mm Recovery Arrhythmia: VPC Clinical Reason for Termination: Chest pain/Anginal equivalent, Dyspnea Stress Symptoms: Chest pressure Exercise duration: 4 min10 sec Highest Stage Achieved: Stage 1: 1.7 mph at 10% grade. Exercise capacity: 4.64 METs Functional Capacity: Mildly deminished capacity Angina Score: Exercise-Limiting Euceda Treadmill Score: -14.0 Stress ECG Conclusion 1. Patient exercised for 4 minutes and 10 seconds (4.6 METS) 2. The patient had horizontal and downsloping ST depression in the inferior leads as well as ST eleva tion in aVR. 3. This represents an abnormal ECG stress suggestive of ischemia. 4. The Euceda Score (-7) estimates an annual cardiovascular mortality of 2% and a five year survival of 85%. Using the Euceda Score there is an intermediate probability of angiographic coronary disease. Euceda Treadmill Score is -14.0 which is High risk. Protocol Used: Shravan Protocol Stress Test Summary STAGE Time (mins) Speed (mph) Grade (%) HR BP SYMPTOMS METS Supine 63 Standing 65 1 3 1.7 10 132 4.6 2 6 1.7 10 132 4.6 1 min recovery 180/100 106 3 out of 10 chest pressure 3 min recovery 180/110 82 3 out of 10 chest pressure subsiding. 6 min recovery 172/108 75 9 min recovery 160/100 71 No further chest pressure. MPI Conclusion The imaging portion of this exam showed a large reversible defect in the anteroseptal wall and apex. There were wall motion abnormalities in the apex Stress ejection fraction was 48%. These results were discussed with the patient an order was placed for cardiac catheterization. Radiologist Interpretation Radiologist agrees with Regulatory Law Specialist's Interpretation. Radiologist Interpretation by: Trinidad Colmenares MD Interpretation Date/Time: 03/17/2019 08:45:15
== END 2019-03-16 01:02 ==
PROVIDERS: PCP Internal Medicine; Visit Provider Nurse Practitioner Family
DX: R07.9 Chest pain, unspecified (principal); I10 Essential (primary) hypertension; E78.5 Hyperlipidemia, unspecified; R94.31 Abnormal electrocardiogram [ECG] [EKG]; R94.30 Abnormal result of cardiovascular function study, unspecified
CPT/HCPCS: 78452; 93016; 93018; 93017

== ENCOUNTER 2019-04-27 12:40 | Outpatient (REF) | payer MEDICARE, BC, SELFPAY ==
[2019-04-27 22:25] LABS: TSH (W/Ref FT4) 1.01 uIU/mL (0.36-3.74)
== END 2019-04-27 13:00 ==
LOC: NCHCN 12:40
PROVIDERS: PCP Internal Medicine; Visit Provider Nurse Practitioner Family
DX: E03.9 Hypothyroidism, unspecified (principal); R53.83 Other fatigue
CPT/HCPCS: 84443

== ENCOUNTER 2019-05-25 13:37 | Emergency (ER) | payer MEDICARE, BC, SELFPAY ==
[2019-05-25 13:41] VITALS: BP 158/86; PULSE 77; RESP 20; TEMP 36.8; O2SAT 94
--- NOTE | 2019-05-25 14:03 | W.ED.GENAD ---
Discharge Plan Disposition Patient Disposition: HOME Condition: Fair Discharge Details Chief Complaint: Nausea/Vomit/Diar Clinical Impression: Bilateral acute otitis media, Nausea, Cough Primary Care Provider: Ag Trent ED Provider: Brittany Mcqueen Home Meds and New Rx's Prescriptions: New amoxicillin-pot clavulanate [Augmentin] 875-125 mg tablet 1 tab PO BID Qty: 14 RF: 0 promethazine 25 mg tablet 25 mg PO QID PRN (Reason: nausea and vomiting) Qty: 10 RF: 0 Continued multivitamin [Daily Multiple] 1 EACH tablet 1 ea PO DAILY RF: 0 triazolam 0.125 MG tablet 0.125 mg PO PRN RF: 0 omeprazole 20 MG capsule,delayed release(DR/EC) 20 mg PO PRN RF: 0 aspirin [Aspirin Low-Strength] 81 MG tablet,chewable 81 mg PO DAILY RF: 0 diazepam 5 MG tablet 5 mg PO QD PRN RF: 0 cholecalciferol (vitamin D3) 2,000 UNIT tablet 1,000 unit PO RF: 0 levothyroxine [Synthroid] 200 MCG tablet 175 mcg PO DAILY RF: 0 atorvastatin 20 mg Tablet PO DAILY RF: 0 clopidogrel [Plavix] 75 mg Tablet 75 mg PO DAILY RF: 0 lamotrigine [Lamictal] 25 mg Tablet, Chewable Dispersible 50 mg PO DAILY RF: 0 mirtazapine 15 mg Tablet 15 mg PO HS RF: 0 metoprolol tartrate 25 mg Tablet PO DAILY RF: 0 Discharge Instructions Instructions: Otitis Media (ED), Acute Nausea and Vomiting (ED), Acute Cough (ED) Additional Instructions: Encourage water intake. You have bilateral ear infections. Please take the antibiotics as prescribed. Even if symptoms improve, please take the entire course. You have a wheezing associated with your cough, please use the inhaler as instructed by nursing staff. You may use 2 puffs every 4-6 hours as needed. If your nausea recurs, to use the Phenergan as prescribed. You may also try the topical capsaicin to your abdomen 3-4 times per day. Please call your primary care tomorrow morning I would like you to be seen within the next 1 to 2 days. If you develop difficulty breathing, shortness of breath, inability stay hydrated or other new/worsening symptom please seek care urgently once again. Referrals: Ag Trent MD [Primary Care Provider] - Discharge Data Discharge Date/Time-TO BE ENTERED AT DEPARTURE: 05/25/19 20:00 Medical Decision Making <KATERIN Michaud - Last Filed: 05/29/19 17:03> This is a 68-year-old patient presenting to the emergency room for 1 week of nausea. Patient reports associated nasal congestion, sore throat and cough although she feels her nausea is the result of having too many THC brownies prior to onset of nausea. Viral symptoms did occur concurrently. Patient denies active vomiting. Denies abdominal pain. Patient reports she is feeling somewhat dehydrated at this time. Patient denies difficulty breathing or shortness of breath or wheezing. Patient does report a dry cough which is somewhat bothersome. Patient does report a THC overdose in the past which required nausea medications to relieve. Patient denies headache or dizziness. Patient is still urinating without difficulty. No dysuria, urgency or frequency. on exam patient does have very obvious otitis media bilaterally, minor pharyngeal erythema and does appear mildly dehydrated. Patient's breath sounds are clear. Patient is in no apparent respiratory distress she has no increased respiratory effort. When she coughs she does sound somewhat bronchospastic however she has no wheezing on exam. Benign abdominal exam is noted. Patient denies any other concerns or complaints at this time. We will plan to place IV and provide nausea medications for relief of her symptoms. Offered chest x-ray d/t vague nausea, and mild hypoxia noted in vital signs. Pt decline CXR. Would prefer nausea management and IV fluids. Patient's initial vital signs notable for mild hypertension otherwise no associated tachycardia, tachypnea. Patient reported mild improvement in her nausea however does report persistent nausea which she would prefer better managed. Reglan ordered in attempt to better control her nausea after initial attempt with Zofran. Patient signed out to oncoming provider. <KATERIN Grady - Last Filed: 05/29/19 00:22> Care transition myself from Angie Ruby PA-C. Please see her initial note for presentation symptoms and laboratory evaluation initial work-up. In brief, patient presented today with chief complaint of 1 week of persistent nausea with no vomiting. Also developed URI symptoms 1 day after the initial onset of nausea. Patient is concerned that nausea associated with cannabinoid induced hyperemesis syndrome. She reports that she has had this historically. States that she had used marijuana approximately 6 days prior to the onset of the symptoms. Patient is also been having congestion, cough, bilateral ear pain. Was initially noted to have bilateral otitis media. Lungs were clear. Abdomen exam is benign. Patient has been treated thus far with 1.5 L of hydration as well as 4 mg of Zofran. Currently, patient continues to endorse nausea and is requesting further medication. She continues to appear nontoxic. Was sleeping prior to my entering the room. Will give oral Phenergan. Hoping to build transition her to oral medication with hopes of discharging from home with continued support for her current symptoms and otitis media. Reglan had initially been ordered but as patient was not symptomatic from nursing staff went to get this medication, the order was canceled. Patient is tolerating oral Phenergan well. Capsaicin cream has been applied. Awaiting results. He is brought to attention that the patient's cough seems to be worse. On auscultation, patient is diffusely wheezy with expiration. She does sound quite tight with diffuse wheezing. Feel a chest x-ray as well as breathing treatment is appropriate. She will be given a DuoNeb and reassess. After duo nebulizer, patient sounds much clearer. She does report feeling improved and cough is diminished. With this notable improvement, plan to continue the patient on an inhaler. She denies any history of COPD or other. Has not used home inhaler use previously. Chest x-ray is reviewed by myself with no acute abnormalities noted. Patient is feeling improved after Phenergan and capsaicin cream topically. I did discuss with the patient long-term cessation of her marijuana usage. She states that she has used marijuana daily for years to help with sleep as well as nausea. She reports that this helped when she was undergoing chemotherapy. However, she has been diagnosed with cannabinoid induced hyperemesis syndrome historically. We did discuss treatment options as well as pathogenesis associated with this. Patient is currently hydrating orally. She was received a total of 1.5 L. She is resting comfortably. Patient diagnosed with URI and subsequent bilateral otitis media. Chest x-ray is reviewed by radiologist FINDINGS: Cardiac and mediastinal contours have a normal appearance. The lungs appear clear. There are again noted to be a few tiny calcified granulomas. No acute infiltrate, effusion or pulmonary edema is seen. Degenerative changes are noted in the thoracic spine. IMPRESSION: No acute abnormality. Discussed these findings with the patient. She does appear improved. She tolerated initial dosing of Augmentin well. Plan to discharge home with prescription for Augmentin as well as Phenergan as did seem to work better for her than the ondansetron. She will be sent home with the capsaicin cream and directions been usage. Encouraged her to try to cut back on marijuana use. Patient is sounding much more clear after nebulizer. Will discharge home with inhaler to use as dictated by symptoms. She was given strict return precautions. I have asked that she follow-up closely with primary care. All of her questions or concerns were addressed, she is in agreement this plan. HPI <KATERIN Michaud - Last Filed: 05/29/19 17:03> General Date/Time Provider Initiated Documentation: 05/25/19 14:01. HPI Narrative: This is a 68-year-old patient presenting to the emergency room today for complaints of nausea for 1 week. Patient reports onset of nausea after ingesting marijuana brownies. Patient reports she has overdosed on THC in the past but nausea never lasted this long. Patient is concerned that the nausea is related to THC ingestion however she does report on day 1 of illness she also had onset of nasal congestion, sore throat and a cough. She has had persistent congestion and cough throughout the week. Patient reports persistent nausea throughout the week. Denies active vomiting. Denies abdominal pain. Denies diarrhea. Denies body ache, fever. She does report chills. Denies headache or dizziness. Patient denies difficulty breathing shortness of breath or wheezing. Patient sounds to have a bronchospastic type cough. Denies any swelling of extremities. No other concerns or complaints at this time. Related Data Home Medications Medication Instructions Recorded Confirmed aspirin [Aspirin Low-Strength] 81 mg PO DAILY tab-cap 12/23/14 01/05/18 cholecalciferol (vitamin D3) 1,000 unit PO 12/23/14 diazepam 5 mg PO QD PRN 12/23/14 01/05/18 multivitamin [Daily Multiple] 1 ea PO DAILY 12/23/14 01/05/18 omeprazole 20 mg PO PRN tab-cap 12/23/14 01/05/18 triazolam 0.125 mg PO PRN tab-cap 12/23/14 01/05/18 levothyroxine [Synthroid] 175 mcg PO DAILY tab-cap 02/13/15 05/25/19 amoxicillin-pot clavulanate 1 tab PO BID #14 tab 05/25/19 [Augmentin] atorvastatin mg PO DAILY 05/25/19 clopidogrel [Plavix] 75 mg PO DAILY 05/25/19 05/25/19 lamotrigine [Lamictal] 50 mg PO DAILY 05/25/19 05/25/19 metoprolol tartrate mg PO DAILY 05/25/19 mirtazapine 15 mg PO HS 05/25/19 05/25/19 promethazine 25 mg PO QID PRN #10 tab 05/25/19 Previous Rx's Medication Instructions Recorded amoxicillin-pot clavulanate 1 tab PO BID #14 tab 05/25/19 [Augmentin] promethazine 25 mg PO QID PRN #10 tab 05/25/19 Allergies Allergy/AdvReac Type Severity Reaction Status Date / Time morphine AdvReac Severe Nausea/Vomi Unverified 05/25/19 13:44 ting General Stated Complaint: Nausea/Vomit/Diar DERW: 3 Review of Systems <KATERIN Michaud - Last Filed: 05/29/19 17:03> All systems reviewed & are unremarkable except as noted in HPI and below Constitutional Constitutional: Reports chills, Denies fatigue, Denies fever(s), Denies headache(s) and Reports malaise ENT Ears, Nose, Mouth, and Throat: Reports otalgia, Denies headache(s), Reports nasal discharge, Denies sinus pain, Denies sinus pressure and Reports sore throat Cardiovascular Cardiovascular: Denies dyspnea and Denies dyspnea on exertion Respiratory Respiratory: Reports cough, Denies pain on inspiration, Denies pain with cough, Denies dyspnea, Denies dyspnea on exertion and Denies wheezing Gastrointestinal Gastrointestinal: Denies abdominal pain, Denies diarrhea, Reports nausea and Denies vomiting Neurologic Neurologic: Denies headache(s) Endocrine Endocrine: Denies fatigue Allergic/Immunologic Allergic/Immunologic: Denies wheezing PFSH <KATERIN Michaud - Last Filed: 05/29/19 17:03> Medical History Agitation Anxiety Breast cancer Hyperlipidemia Hypertension Hypothyroidism Insomnia Osteoarthritis Surgical History (Updated 01/14/18 @ 14:33 [facility] Breast, Lumpectomy ORIF right femur port-a-cath placement Right chest wall Replacement of total knee joint right sentinel lymph node biopsy Social History Smoking/Tobacco Use Status: Never Drug use: Occasionally Substance use type: marijuana Do you feel safe in your relationship?: Yes Exam <KATERIN Michaud - Last Filed: 05/29/19 17:03> Narrative Exam Narrative: CONST: Patient in no acute distress. Alert and oriented. HENMT: Head nomocephalic, normal to inspection. Atraumatic. Hearing grossly normal. TMs appear to have bilateral ear effusions with bulla and injection consistent with otitis media bilaterally. Mild pharyngeal erythema without exudates. No sinus pain with palpation bilaterally. EYES: General normal appearance. Alignment normal. Eyelids normal. Conjunctiva normal. NECK: Normal visual inspection. FROM. Trachea midline. No Midline tenderness. no Cervical lymphadenopathy present CHEST: Normal insepection of the chest. RESP: Normal respiratory effort. Speaking full sentences. No cough. No audible wheezing. No retractions. Breath sounds clear, full and equal bilaterally. No wheezing. No rhonchi or rales. CARDIO: No JVD. No murmur. Regular rate and rhythm GI: Bowel sounds present in all 4 quadrants, abdomen is soft, nontender. No peritoneal signs, rebound or guarding NEURO: Alert and awake. Speech clear. PSYCH: Normal affect. Cooperative. Course <KATERIN Michaud - Last Filed: 05/29/19 17:03> Vital Signs Vital signs: Vital Signs Temperature 36.8 C 05/25/19 13:41 Pulse 77 05/25/19 13:41 Respiratory Rate 20 05/25/19 13:41 Blood Pressure 158/86 H 05/25/19 13:41 Pulse Oximetry 94 L 05/25/19 13:41 Temperature 36.8 C 05/25/19 13:41 Temperature Source Temporal Artery Scan 05/25/19 13:41 Pulse 77 05/25/19 13:41 Respiratory Rate 20 05/25/19 13:41 Blood Pressure 158/86 H 05/25/19 13:41 Pulse Oximetry 94 L 05/25/19 13:41 Oxygen Delivery Method Room Air 05/25/19 13:41 Oxygen Flow Rate 0 05/25/19 13:41 Sign Out <KATERIN Michaud - Last Filed: 05/29/19 17:03> Sign Out Data: Sign Out Comment: Signed out pending relief of symptoms and reevaluation Last updated by Lizette Zhao PA at 05/25/19 16:12
[2019-05-25] MEDS: Normal Saline 1,000 ML 1000 ML IV (14:22)
[2019-05-25] MEDS: Ondansetron 4 MG/2 ML VIAL IVP (14:22)
[2019-05-25 14:31] LABS: Abs Immature Grans 0.01 k/cumm (0.0-0.09); Absolute Basophil Count 0.02 k/cumm (0.0-0.2); Absolute Eosinophil Count 0.05 k/cumm (0.0-0.7); Absolute Lymphocyte Count 0.88 k/cumm (1.2-3.4); Absolute Monocyte Count 0.68 k/cumm (0.11-0.7); Absolute Neutrophil Count 3.97 k/cumm (1.2-6.7); Basophils % 0.4; Eosinophils % 0.9; HCT 47.6 % (36.0-46.0); HGB 16.8 g/dL (12.0-15.5); Immature Grans % 0.2 %; Lymphocytes % 15.7; Mean Corp. HGB Concentration 35.3 g/dL (32.0-36.0); Mean Corpuscular Hemoglobin 29.5 pg (27.0-33.0); Mean Corpuscular Volume 83.5 fL (80-95); Mean Platelet Volume 9.7 fL (8.0-11.0); Monocytes % 12.1; Neutrophils % 70.7; Platelet Count 291 x1000/uL (130-400); RBC Distribution Width 13.2 % (11.7-14.6); White Blood Cell Count 5.61 k/cumm (4.4-10.8)
[2019-05-25 14:47] LABS: ALT 39 U/L (14-59); AST 36 U/L (15-37); Albumin 4.1 g/dL (3.4-5.0); Alkaline Phosphatase 148 U/L (46-116); BUN 10 mg/dL (7-18); Bilirubin, Total 0.4 mg/dL (0.2-1.0); Calcium 9.2 mg/dL (8.5-10.1); Chloride 103 mmol/L (98-107); Glucose 121 mg/dL (74-106); Lipase 97 U/L (73-393); Potassium 3.5 mmol/L (3.5-5.1); Sodium 140 mmol/L (136-145); Total Protein 7.9 g/dL (6.4-8.2)
[2019-05-25 15:57] LABS: Bilirubin Negative (Negative); Blood Trace-intact (Negative); Clarity Clear (Clear); Glucose Negative (Negative); Ketones 15 mg/dL (Negative); Leukocyte Esterase Trace (Negative); Nitrite Negative (Negative); Specific Gravity >= 1.030 (1.005-1.025); Urobilinogen 0.2 EU/dL (Up TO 0.2); pH 5.5 (5-8)
[2019-05-25 16:10] LABS: Epithelial Cells Many HPF (Negative); Other Cells Negative (Negative); RBC Negative HPF (0-2)
[2019-05-25 16:11] LABS: Bacteria Few HPF (Negative); C & S Indicated? No/Sq. Contamination; Casts 5-10 Hyaline LPF (Negative); Crystals Few Amorphous HPF (Negative); Mucus Negative (Negative)
[2019-05-25] MEDS: Promethazine 25 MG TAB PO (17:16)
[2019-05-25] MEDS: Normal Saline 500 ML 1000 ML IV (17:17)
[2019-05-25 17:26] VITALS: BP 154/66; PULSE 71; RESP 22; TEMP 36.7; O2SAT 93
--- NOTE | 2019-05-25 17:30 | DI.RAD_ITS ---
EXAM: XR CHEST 2V PA LATERAL INDICATION: cough. COMPARISON: XR CHEST 2V PA LATERAL from 03/12/2019 TECHNIQUE: 2D digital imaging was performed. FINDINGS: Cardiac and mediastinal contours have a normal appearance. The lungs appear clear. There are again noted to be a few tiny calcified granulomas. No acute infiltrate, effusion or pulmonary edema is se en. Degenerative changes are noted in the thoracic spine. IMPRESSION: No acute abnormality. DATA REPOSITORY: RADIATION DOSE DELIVERED:
[2019-05-25 17:50] VITALS: RESP 19; RESP 8
[2019-05-25] MEDS: Albuterol/Ipratropium 3 ML UPD VIAL UPD (17:50)
[2019-05-25] MEDS: Amoxicillin 875/Clav. 125 TAB PO ×2 (18:54→19:52)
--- NOTE | 2019-05-25 19:01 | DI.VRAD_ITS ---
PROCEDURE INFORMATION: Exam: XR Chest, 2 Views Exam date and time: 05/25/2019 6:30 PM Age: 68 years old Clinical indication: Cough TECHNIQUE: Imaging protocol: XR of the chest Views: 2 views. COMPARISON: CR XR CHEST 2V PA LATERAL 03/12/2019 12:57 PM FINDINGS: Lungs: Small calcified nodule in the right mid lung field measuring 3 mm is consistent with an old granuloma. No change since 03/12/2019. No acute infiltrates. No pulmonary edema changes. Pleural space: No pleural effusions. Heart/Mediastinum: Normal heart size. No mediastinal widening. Bones/joints: Degenerative thoracic spine change. IMPRESSION: 1. No acute cardiopulmonary findings. 2. Small calcified granuloma in the right mid lung field. Dictated and Authenticated by: Hoang Layne MD. Ordering:SE Soto MD
[2019-05-25] MEDS: Albuterol HFA 8 GM 60 PUFF INH IH (19:52)
[2019-05-25] MEDS: Promethazine 25 MG TAB 50 MG PO (19:52)
== END 2019-05-25 20:00 | disposition home or self-care (01) ==
PROVIDERS: Physician Assistant; Emergency Provider Physician Assistant; PCP Internal Medicine
DX: H66.93 Otitis media, unspecified, bilateral (principal); R11.0 Nausea; R05 Cough; I10 Essential (primary) hypertension
CPT/HCPCS: 80053; 83690; 94640; 96361; 96374; 96375; 99285; 71046; 81003; 81015; 85025; 99284; J2405; J7620

== ENCOUNTER 2019-06-02 18:08 | Emergency (ER) | payer MEDICARE, BC, SELFPAY ==
[2019-06-02 18:15] VITALS: BP 204/74; PULSE 70; RESP 14; TEMP 36.5; O2SAT 95
--- NOTE | 2019-06-02 18:27 | W.ED.GENAD ---
Discharge Plan Disposition Patient Disposition: HOME Condition: Stable Discharge Details Chief Complaint: GenMedical Clinical Impression: Nausea, Arm pain, left Primary Care Provider: Ag Trent ED Provider: Brittany Mcqueen Home Meds and New Rx's Prescriptions: Continued multivitamin [Daily Multiple] 1 EACH tablet 1 ea PO DAILY RF: 0 triazolam 0.125 MG tablet 0.125 mg PO PRN RF: 0 omeprazole 20 MG capsule,delayed release(DR/EC) 20 mg PO PRN RF: 0 aspirin [Aspirin Low-Strength] 81 MG tablet,chewable 81 mg PO DAILY RF: 0 diazepam 5 MG tablet 5 mg PO QD PRN RF: 0 cholecalciferol (vitamin D3) 2,000 UNIT tablet 1,000 unit PO RF: 0 levothyroxine [Synthroid] 200 MCG tablet 175 mcg PO DAILY RF: 0 atorvastatin 20 mg Tablet 20 mg PO DAILY RF: 0 clopidogrel [Plavix] 75 mg Tablet 75 mg PO DAILY RF: 0 lamotrigine [Lamictal] 25 mg Tablet, Chewable Dispersible 50 mg PO DAILY RF: 0 mirtazapine 15 mg Tablet 15 mg PO HS RF: 0 metoprolol tartrate 25 mg Tablet 25 mg PO DAILY RF: 0 Discharge Instructions Instructions: Acute Nausea and Vomiting (ED) Additional Instructions: Encourage water intake. Encourage relaxation techniques and antistress techniques. Please use the Phenergan and capsaicin as previously prescribed to help with your symptomatic management. Please contact your primary care as well as cardiology tomorrow morning to schedule appointment as soon as possible. If you develop chest pain, shortness of breath, difficulty breathing, inability stay hydrated or other new/worsening symptom please seek care urgently once again. Referrals: Ag Trent MD [Primary Care Provider] - Discharge Data Discharge Date/Time-TO BE ENTERED AT DEPARTURE: 06/02/19 21:55 Medical Decision Making <KATERIN Grady - Last Filed: 06/04/19 22:28> Patient is a 68-year-old female presenting today with fairly vague complaints. She continues to go back to the fact that she is been anxious and that this seems to increase her symptoms. She states that for the past 2 weeks, she has had left arm pain. She denies any shortness of breath or chest pain. States that that arm pain can get worse with anxiety. Is not exertionally based and has been fairly consistent aside from the increase associated with episodes of anxiety states that a friend of hers is checking her blood pressure today and she was noted to be hypertensive, they subsequently took multiple times and each time the reading continued to go up. Patient did undergo an Angiocath with stent placement 2 months ago. [place] [facility] [place] was seen here 1 week ago at which time she was diagnosed with otitis media. Patient did not take the antibiotics but states that the ear discomfort has subsided despite no treatment. At the time she was seen here previously, she was having issues with nausea and this was thought to be potentially secondary to hyperemesis syndrome associated with daily cannabinoid use. Patient states that she has not been using any edibles and has been trying to cut back on her marijuana despite this continues to have nausea. Denies any fevers or chills. No abdominal pain. No recent travel. When she was seen her last, she was prescribed Phenergan and was advised to use capsaicin on her abdomen. She reports that these things were working well for her but as the symptoms would come back hours after usage, she stopped using these. On exam, patient appears quite anxious. She does appear well-hydrated. Lungs are clear. Normal cardiac exam. No lower extremity edema or calf tenderness. Abdomen is benign. She is point tender in the posterior aspect of the left axilla, no palpable lymphadenopathy, no skin changes, no pain with movement of the left arm. No pain to palpation about the chest. Patient's blood pressure is elevated with a blood pressure of 204/74. She is typically hypertensive but this is high for her. EKG was reviewed by Dr. Fam. Please see his note. Unchanged from previous. Shortly after arrival, patient was seen to be coming down systolic is now 157 which is in line with the patient's baseline. Chest x-ray reviewed by radiologist: FINDINGS: Lungs: No focal consolidation. Small calcified granuloma in the right mid lung, unchanged. Pleural space: No pleural effusion or pneumothorax. Heart/Mediastinum: The heart and mediastinum are stable in appearance. Bones/joints: Mild degenerative changes in the thoracic spine. IMPRESSION: No acute cardiopulmonary disease. Labs reviewed. No leukocytosis. Coagulation factors are normal. Troponin is normal less than 0.05. BUN is normal. UA pending. Review the discharge summary from [facility]. Patient was discharged on 03/19/2019. The time of her arrival, patient was endorsing chest heaviness and shortness of breath. She is denying the symptoms now and states that this does not feel like when she was admitted at [facility]. Patient had 98% occlusion of LAD, 80% of OM1. PCI was performed on the OM and LAD lesions. Patient reports feeling much improved. However, she does seem to have good insight with the fact that this improvement seems to be an area where she can have reassurance and less anxiety. She is resting comfortably. States that the nausea is improved. Patient's left arm pain is in the left axilla and elicited with palpation. I do not feel that this is likely associated with any cardiac etiology particularly she is not having any other cardiac symptoms. She has been having this nausea associated with large amount of marijuana intake. No vomiting. Had responded well to capsaicin. I did advise that she can continue with supportive cares that had been helping her. Her labs are reassuring, EKG was reassuring, no abnormalities in imaging. She is had the symptoms for 4 days I do not feel that repeat troponin is necessary at this time. Rather, we did discuss anxiolytic techniques. I encouraged close follow-up with primary care. She has an appointment with cardiology next week, advised she may call the office to see if this appointment can be moved up. She is given strict return precautions. All her questions and concerns were addressed and she is in agreement this plan. <Cuauhtemoc Fam DO - Last Filed: 06/02/19 19:02> EKG 18: 40 Rate 66, intervals normal, sinus rhythm, no significant ST elevations or depressions, no evidence of STEMI. Slightly atypical T wave morphology, however review of EKG from 01/05/2018 demonstrates very similar findings. HPI <KATERIN Grady - Last Filed: 06/04/19 22:28> General Mode of arrival: ambulatory. Date/Time Provider Initiated Documentation: 06/02/19 18:08. Limitations to Documentation: no limitations. Information obtained by: patient and RN notes reviewed. History of Present Illness 68 year old F presents to the emergency department with the chief complaint of left arm pain, nausea, cough, sore throat, anxiety, hypertension, described as moderate, Quality is described as aching, and is localized to the left and upper extremity. Patient reports no radiation. Patient started experiencing this week(s) (2) and it has been intermittent. No relieving factors improve symptom(s), Other factors that worsen symptoms (when feeling anxious) . Patient notes cough, loss of appetite and nausea/vomiting (endorses nausea, no vomiting); denies chest pain, diaphoresis, fever/chills, headaches, malaise, rash, shortness of breath and weakness. Patient did receive the following treatments prior to arrival, other Related Data Home Medications Medication Instructions Recorded Confirmed aspirin [Aspirin Low-Strength] 81 mg PO DAILY tab-cap 12/23/14 06/02/19 cholecalciferol (vitamin D3) 1,000 unit PO 12/23/14 diazepam 5 mg PO QD PRN 12/23/14 06/02/19 multivitamin [Daily Multiple] 1 ea PO DAILY 12/23/14 06/02/19 omeprazole 20 mg PO PRN tab-cap 12/23/14 06/02/19 triazolam 0.125 mg PO PRN tab-cap 12/23/14 06/02/19 levothyroxine [Synthroid] 175 mcg PO DAILY tab-cap 02/13/15 06/02/19 atorvastatin 20 mg PO DAILY 05/25/19 06/02/19 clopidogrel [Plavix] 75 mg PO DAILY 05/25/19 06/02/19 lamotrigine [Lamictal] 50 mg PO DAILY 05/25/19 06/02/19 metoprolol tartrate 25 mg PO DAILY 05/25/19 06/02/19 mirtazapine 15 mg PO HS 05/25/19 06/02/19 Allergies Allergy/AdvReac Type Severity Reaction Status Date / Time morphine AdvReac Severe Nausea/Vomi Unverified 06/02/19 18:27 ting General Stated Complaint: GenMedical DREW: 3 Review of Systems <KATERIN Grady - Last Filed: 06/04/19 22:28> Constitutional Constitutional: Reports as per HPI, Denies chills, Reports fatigue, Denies fever(s), Denies headache(s), Denies lethargy and Reports poor appetite Eyes Eyes: Denies change in vision ENT Ears, Nose, Mouth, and Throat: Denies dizziness and Denies headache(s) Cardiovascular Cardiovascular: Reports as per HPI, Denies chest pain, Denies chest pain at rest, Denies chest pain with activity, Denies diaphoresis, Denies syncope, Denies pedal edema, Denies irregular heart rhythm, Reports radiating jaw, neck or arm pain (endorses left arm pain, states pain worse with anxiety), Denies palpitations, Denies dyspnea and Denies dyspnea on exertion Respiratory Respiratory: Reports as per HPI, Denies chest congestion, Denies cough, Denies pain on inspiration, Denies pain with cough, Denies dyspnea, Denies dyspnea on exertion and Denies wheezing Gastrointestinal Gastrointestinal: Reports as per HPI, Denies abdominal pain, Denies diarrhea, Denies nausea and Reports vomiting Musculoskeletal Musculoskeletal: Reports as per HPI and Denies back pain Integumentary/Breasts Skin/Breast: Reports as per HPI and Denies rash Neurologic Neurologic: Reports as per HPI, Denies dizziness, Denies syncope and Denies headache(s) Endocrine Endocrine: Reports fatigue and Denies palpitations Allergic/Immunologic Allergic/Immunologic: Denies wheezing PFSH <KATERIN Grady - Last Filed: 06/04/19 22:28> Medical History (Updated 06/02/19 @ 21:48 by KATERIN Grady) Agitation Allergic conjunctivitis, bilateral (Acute) Anxiety Breast cancer CAD (coronary artery disease) (Chronic) Exertional chest pain (Acute) Fatigue (Acute) GERD (gastroesophageal reflux disease) (Chronic) Hyperlipidemia Hypertension Hypothyroidism Insomnia Left eye pain (Acute) Osteoarthritis Osteopenia (Acute) Suicidal ideation (Acute) Urinary hesitancy (Acute) Vitamin D deficiency (Acute) Surgical History (Updated 01/14/18 @ 14:33 by [employer] [place]) Breast, Lumpectomy ORIF right femur port-a-cath placement Right chest wall Replacement of total knee joint right sentinel lymph node biopsy Social History Smoking/Tobacco Use Status: Never Alcohol Intake: never Drug use: Occasionally Substance use type: marijuana Do you feel safe at home: Yes Do you feel safe in your relationship?: Yes Exam <KATERIN Grady - Last Filed: 06/04/19 22:28> Const General: cooperative, healthy appearing, comfortable, no acute distress, well developed and anxious Nutritional Appearance: average body habitus, well nourished and overweight Orientation: alert, awake and oriented x3 HENMT Head: normal to inspection Ears: hearing grossly normal bilaterally Mouth: moist mucous membranes Chest Chest: normal inspection of the chest, normal palpation of entire chest wall and no crepitus Resp Effort & Inspection: normal respiratory effort, able to speak in complete sentences and no respiratory distress Auscultation: clear to auscultation bilaterally, no rales, no rhonchi and no wheezes Cardio Rate: regular rate Rhythm: regular rhythm Heart Sounds: S1 normal and S2 normal GI Inspection: normal to inspection, no edema and non-distended Palpation: soft, no hepatosplenomegaly, not firm, no guarding, not rigid and nontender Auscultation: normal bowel sounds Back/Spine/Pelvis Back: no CVA tenderness Thoracic/Lumbar Spine: thoracic and lumbar spine normal to inspection Skin General skin exam: no rashes or lesions noted Trauma: no lacerations or abrasions Neuro General: alert, awake and oriented x3 Cognition: normal cognition Speech: speech normal Gait: normal gait Extrem General: normal to inspection, normal capillary refill, no pedal edema, no calf tenderness and normal gait Psych Appearance: grossly normal and well kempt Mental Status: mental status grossly normal Speech and Movement: speech and movement normal Course <KATERIN Grady - Last Filed: 06/04/19 22:28> Vital Signs Vital signs: Vital Signs Temperature 36.5 C 06/02/19 18:15 Pulse 70 06/02/19 18:15 Respiratory Rate 14 06/02/19 18:15 Blood Pressure 204/74 H 06/02/19 18:15 Pulse Oximetry 95 06/02/19 18:15 Temperature 36.5 C 06/02/19 18:15 Temperature Source Tympanic 06/02/19 18:15 Pulse 70 06/02/19 18:15 Respiratory Rate 14 06/02/19 18:15 Respiratory Effort Non-Labored 06/02/19 18:26 Blood Pressure 204/74 H 06/02/19 18:15 Blood Pressure Position Sitting 06/02/19 18:15 Pulse Oximetry 95 06/02/19 18:15 Oxygen Delivery Method Room Air 06/02/19 18:15 Oxygen Flow Rate 0 06/02/19 18:15
[2019-06-02 19:13] LABS: Abs Immature Grans 0.03 k/cumm (0.0-0.09); Absolute Basophil Count 0.03 k/cumm (0.0-0.2); Absolute Eosinophil Count 0.23 k/cumm (0.0-0.7); Absolute Lymphocyte Count 1.88 k/cumm (1.2-3.4); Basophils % 0.4; Eosinophils % 3.2; HCT 47.1 % (36.0-46.0); HGB 16.5 g/dL (12.0-15.5); Immature Grans % 0.4 %; Lymphocytes % 25.9; Mean Corpuscular Hemoglobin 29.3 pg (27.0-33.0); Mean Corpuscular Volume 83.5 fL (80-95); Mean Platelet Volume 9.6 fL (8.0-11.0); Monocytes % 9.6; Neutrophils % 60.5; Platelet Count 391 x1000/uL (130-400); RBC 5.64 m/cumm (4.00-5.20); RBC Distribution Width 13.1 % (11.7-14.6); White Blood Cell Count 7.27 k/cumm (4.4-10.8)
[2019-06-02 19:29] LABS: PTT Activated 26.2 sec (21.0-31.4); Prothrombin Time 10.3 sec (9.3-11.0)
[2019-06-02 19:35] LABS: ALT 35 U/L (14-59); AST 29 U/L (15-37); Albumin 3.9 g/dL (3.4-5.0); Alkaline Phosphatase 133 U/L (46-116); Anion Gap 11.9 mmol/L (3-11); BUN 10 mg/dL (7-18); Bilirubin, Total 0.4 mg/dL (0.2-1.0); CO2 24.1 mmol/L (21.0-32.0); CREATININE 0.84 mg/dL (0.55-1.02); Calcium 9.2 mg/dL (8.5-10.1); Chloride 104 mmol/L (98-107); Glucose 117 mg/dL (74-106); Magnesium 1.9 mg/dL (1.8-2.4); Potassium 3.4 mmol/L (3.5-5.1); Sodium 140 mmol/L (136-145); Total Protein 7.8 g/dL (6.4-8.2)
[2019-06-02 19:42] LABS: Troponin I < 0.05 ng/Ml (<0.06)
[2019-06-02 19:45] LABS: Bilirubin Negative (Negative); Blood Negative (Negative); Clarity Clear (Clear); Glucose Negative (Negative); Ketones 15 mg/dL (Negative); Leukocyte Esterase Moderate (Negative); Nitrite Negative (Negative); Specific Gravity 1.025 (1.005-1.025); Urobilinogen 0.2 EU/dL (Up TO 0.2)
--- NOTE | 2019-06-02 19:48 | DI.RAD_ITS ---
EXAM: XR CHEST 2V PA LATERAL CLINICAL HISTORY: nausea, cough, ?CP equivilant TECHNIQUE: 2D digital imaging was performed. COMPARISON: XR CHEST 2V PA LATERAL from 05/25/2019 FINDINGS: MEDIASTINUM: Normal. HEART: Normal. PULMONARY VASCULATURE: Normal. LUNGS: Clear. Stable calcified granuloma in the right mid lung. PLEURAL SPACE: No pleural effusion or pneumothorax. BONE:Age-appropriate degenerative changes. OTHER FINDINGS:Normal. IMPRESSION: No acute pulmonary findings. DATA REPOSITORY: RADIATION DOSE DELIVERED:
--- NOTE | 2019-06-02 19:53 | DI.VRAD_ITS ---
PROCEDURE INFORMATION: Exam: XR Chest, 2 Views Exam date and time: 06/02/2019 7:44 PM Age: 68 years old Clinical indication: Cough; Additional info: Nausea, cough, ? cp equivalent TECHNIQUE: Imaging protocol: XR of the chest Views: 2 views. COMPARISON: CR XR CHEST 2V PA LATERAL 05/25/2019 6:30 PM FINDINGS: Lungs: No focal consolidation. Small calcified granuloma in the right mid lung, unchanged. Pleural space: No pleural effusion or pneumothorax. Heart/Mediastinum: The heart and mediastinum are stable in appearance. Bones/joints: Mild degenerative changes in the thoracic spine. IMPRESSION: No acute cardiopulmonary disease. Dictated and Authenticated by: Cricket Llamas MD. Ordering:SE Soto MD
[2019-06-02 19:54] LABS: Bacteria Negative HPF (Negative); C & S Indicated? No/Sq. Contamination; Casts Negative LPF (Negative); Crystals Many Calcium Oxalate HPF (Negative); Epithelial Cells Many HPF (Negative); Mucus Negative (Negative); Other Cells Few Renal (Negative); RBC Negative HPF (0-2)
[2019-06-02 21:06] VITALS: BP 183/70; PULSE 59; RESP 16; O2SAT 95
[2019-06-02 21:46] VITALS: BP 148/56; PULSE 61; RESP 16; O2SAT 96
[2019-06-02 21:55] VITALS: BP 148/56; PULSE 61; RESP 16; TEMP 36.5; O2SAT 96
--- NOTE | 2019-06-02 22:08 | NUR.NOTE ---
Nursing Note: referal copy made to care management 06/02/19
== END 2019-06-02 21:55 | disposition home or self-care (01) ==
PROVIDERS: Emergency Provider Physician Assistant; PCP Internal Medicine
DX: M79.602 Pain in left arm (principal); R11.0 Nausea; I10 Essential (primary) hypertension
CPT/HCPCS: 80053; 93005; 99284; 71046; 81003; 81015; 83735; 84484; 85025; 85610; 85730; 93010

== ENCOUNTER 2019-06-08 08:31 | Outpatient (CLI) | payer MEDICARE, BC, SELFPAY | END 2019-06-08 08:51 | PROVIDERS: PCP Internal Medicine; Visit Provider Internal Medicine Cardiovascular Disease | DX: I25.10 Atherosclerotic heart disease of native coronary artery without angina pectoris (principal); E78.5 Hyperlipidemia, unspecified; I10 Essential (primary) hypertension; Z79.899 Other long term (current) drug therapy | CPT/HCPCS: 99204; 99215; 93005; 93010 ==

== ENCOUNTER 2019-06-09 02:40 | Outpatient (CLI) | payer MEDICARE, BC, SELFPAY ==
--- NOTE | 2019-06-09 | DI.MAMMO_ITS ---
EXAM: MG MAMMO SCREENING 60 MIN DUR CLINICAL HISTORY: H/O LT BREAST CA STAGE II, C50.912, SCREENING TECHNIQUE: Bilateral full field digital CC and MLO mammographic images were obtained with 3D tomosyn thesis and utilizing computer aided detection (CAD). COMPARISON: Available for comparison. FINDINGS: Masses/Architectural Distortion: None seen. Status post left lumpectomy. Microcalcifications: No suspicious pleomorphic-type are seen. Skin Thickening/Nipple Retraction: None. IMPRESSION: 1. No significant interval change with no specific features of malignancy noted. 2. Unless there is more urgent need, screening mammography is recommended, as per [place] [employer] guidelines. BI-RADS Cat 2 - Benign Findings Breast Density - Category C - Heterogeneously dense The mammogram demonstrates the patient's breast tissue is dense. Dense breast tissue is very common a nd is not abnormal but dense breast tissue can make it harder to find cancer on a mammogram. Also, de nse breast tissue may increase their breast cancer risk. This information [facility] was provided to the patient to raise their awareness. Use this report when you speak wi th the patient about their risks for breast cancer, which includes their family history. At that time , you may recommend for more screening tests (Ultrasound or MRI) as they might be useful based on the ir risk. A negative radiographic report should not delay biopsy if a dominant or clinically suspicious mass is present. Up to ten percent of cancers are not identified on mammography. A negative report may reinforce clinical impression. Adenosis and dense breasts may obscure an underlying neoplasm. False positive reports average 6 to 10%. Patient will receive a letter notifying them of these results.
== END 2019-06-09 03:00 ==
PROVIDERS: PCP Internal Medicine; Visit Provider Nurse Practitioner
DX: Z12.31 Encounter for screening mammogram for malignant neoplasm of breast (principal); C50.912 Malignant neoplasm of unspecified site of left female breast; Z98.890 Other specified postprocedural states
CPT/HCPCS: 77063; 77067

== ENCOUNTER 2019-06-28 14:12 | Outpatient (REF) | payer MEDICARE, BC, SELFPAY ==
[2019-06-28 20:27] LABS: Anion Gap 7.2 mmol/L (3-11); BUN 14 mg/dL (7-18); CO2 27.8 mmol/L (21.0-32.0); CREATININE 0.71 mg/dL (0.55-1.02); Calcium 8.8 mg/dL (8.5-10.1); Calculated LDL 65 mg/dL (<100); Chloride 106 mmol/L (98-107); Cholesterol 176 mg/dL (<200); Glucose 107 mg/dL (74-106); HDL Cholesterol 38 mg/dL (40-60); Potassium 3.9 mmol/L (3.5-5.1); Sodium 141 mmol/L (136-145); Triglyceride 365 mg/dL (<150)
== END 2019-06-28 14:32 ==
LOC: NCHCN 14:12
PROVIDERS: Internal Medicine Cardiovascular Disease; PCP Internal Medicine; Visit Provider Internal Medicine
DX: E78.5 Hyperlipidemia, unspecified (principal); I25.10 Atherosclerotic heart disease of native coronary artery without angina pectoris; I10 Essential (primary) hypertension
CPT/HCPCS: 80048; 80061

== ENCOUNTER 2019-06-29 03:23 | Outpatient (CLI) | payer MEDICARE, BC, SELFPAY ==
--- NOTE | 2019-06-29 07:15 | DI.US_ITS ---
APPROVED REPORT EXAM: Comprehensive 2D, Doppler, and color-flow Echocardiogram Patient Location: Out-Patient Consumer Advocate: Jennifer Armstrong RDCS (AE) Indications: CAD Conclusion Normal left ventricular wall thickness and chamber size. EF is 60%. Segmental wall motion is normal There is no chamber enlargement There is no significant structural valvular disease Mild mitral regurgitation Trace tricuspid regurgitation with normal estimated right ventricular systolic pressure Wall motion Left Ventricle The left ventricle is normal size. The left ventricular systolic function is normal. The left ventric ular ejection fraction is within the normal range. There is normal left ventricular wall thickness. T here is normal LV segmental wall motion. Left ventricular filling pattern is normal for age. There is no ventricular septal defect visualized. LVEF is 60%. Right Ventricle The right ventricle is normal size. The right ventricular systolic function is normal. Atria The left atrium size is normal. The right atrium size is normal. The interatrial septum is intact wit h no evidence for an atrial septal defect. Aortic Valve Aortic valve is trileaflet. There is no aortic valvular stenosis. No aortic regurgitation is present. Mitral Valve There is mitral annular calcification. No evidence of mitral valve stenosis. Mild mitral regurgitatio n. Tricuspid Valve The tricuspid valve is normal in structure. There is no tricuspid valve stenosis. Trace tricuspid reg urgitation. The RVSP is 25 mmHg. Pulmonic Valve Pulmonic valve is not well visualized. There is no pulmonic valvular stenosis. There is no pulmonic v alvular regurgitation. Great Vessels The aortic root is normal in size. The ascending aorta is normal in size. IVC is normal in size and c ollapses >50% with inspiration. Pericardium There is no pericardial effusion. 2D Dimensions IVSD d PLAX 0.92 cm F: 0.6-1.0 LV Vol A2C d MOD 79.8 mL LVPW d PLAX 0.91 cm F: 0.6 - 1.0 LV Vol A4C d MOD 85.2 mL LVID d PLAX 4.75 cm F: 3.8 - 5.2 LA vol/ BSA A2C s A-L 44.1 mL/m2 LVDs 3.45 cm F: 2.2 - 3.5 LA vol/ BSA A4C s A-L 32.2 mL/m2 Ao Root d 2.80 cm F: 2.7 - 3.3 LA Vol/ BSA Biplane s A-L 40.0 mL/m2 RA Area A4C 13.54 cm2 LA Area A4C s MOD 20.63 cm2 RA Vol/ BSA A4C s A-L 18.7 mL/m2 LA Area A2C s MOD 22.79 cm2 Ao Asc Diam d 3.21 cm F: 2.3 - 3.1 LV EF A4C MOD 60.0 % LV EF Teichholz 52.7 % LV EF A2C MOD 57.2 % LVEF (Dick's) 56.79 % F: 54 - 74 LV EF Biplane MOD 56.8 % LV Volume 63.38 mL F: 46 - 106 LV Volume Index 34.25 mL/m2 F: 29 - 61 LV Vol Biplane MOD 82.3 mL FS 27.05 % M-Mode TAPSE 3.13 cm (M/F) <1.7 LV Diastology MV E' medial 0.065 (>0.07 m/s) E/A Ratio 1.4 LV E/e MED 11.75 (<14) MV E Vmax 0.76 (0.4-1.3 m/s) MV E' lateral 0.101 (>0.1 m/s) MV A Vmax 0.55 (0.4-1.3 m/s) LV E/e LAT 7.50 (<14) MV E/A Ratio 1.33 MV E/E' medial 11.77 MV E/E' lateral 7.54 Aortic Valve LVOT Area 2.94 cm2 AoV Area Vmax 1.74 cm2 LVOT Vmax 0.86 m/s AoV Area/ BSA (Vmax) 0.94 cm2/m2 LVOT Mean Lalo. 0.55 m/s BENTON Mean Lalo. 1.51 cm2 LVOT Peak Grad 3.0 mmHg BENTON Mean Lalo. Index 0.82 cm2/m2 LVOT Mean Grad 1.4 mmHg LVOT VTI 0.225 m LVOT Diam s 1.90 cm (M/F) 1.5-2.5 AoV Vmax 1.46 (0.5-1.3 m/s) Velocity Ratio 0.58 AoV Mean Lalo. 1.07 m/s AoV Peak Grad 8.5 mmHg LVOT SV 66.11 mL AoV Mean Grad 4.9 (<5 mmHg) AoV VTI 0.352 (0.18-0.25 m) AoV Area VTI 1.88 (2.5-4.5 cm2) AoV Area/ BSA (VTI) 1.01 cm/m2 Mitral Valve MV DT 242 (160-240 msec) MR Vmax 5.12 m/s MV PHT 70 msec MR VTI 1.688 m MV Area PHT 3.13 cm2 MR Peak Grad 104.7 mmHg MR Mean Grad 68.3 mmHg Pulmonary Valve PV Vmax 1.03 (0.5-1.5 m/s) RVOT Peak Gr. 1.48 mmHg PV Peak Grad 4.3 mmHg RVOT Mean Gr. 0.90 mmHg PV Mean Grad 2.6 mmHg RVOT VTI 0.162 m PV VTI 0.268 m RVOT Vmax 0.61 m/s Tricuspid Valve TR Peak Grad 22.0 mmHg TR Vmax 2.35 m/s RA Pressure 3.00 mmHg RVSP (TR) 25.0 mmHg
== END 2019-06-29 03:43 ==
PROVIDERS: PCP Internal Medicine; Visit Provider Internal Medicine Cardiovascular Disease
DX: I25.10 Atherosclerotic heart disease of native coronary artery without angina pectoris (principal); I34.0 Nonrheumatic mitral (valve) insufficiency; I10 Essential (primary) hypertension; E78.5 Hyperlipidemia, unspecified
CPT/HCPCS: 93306

== ENCOUNTER → 2019-08-24 14:48 | Outpatient (BNVA) | payer MEDICARE, BC, SELFPAY | PROVIDERS: PCP Internal Medicine; Referring Provider Internal Medicine; Visit Provider Internal Medicine Cardiovascular Disease | DX: I10 Essential (primary) hypertension (principal); I25.10 Atherosclerotic heart disease of native coronary artery without angina pectoris | CPT/HCPCS: 99214; 99442 ==

== ENCOUNTER → 2019-12-16 10:00 | Outpatient (BNVA) | payer MEDICARE, BC, SELFPAY | PROVIDERS: PCP Internal Medicine; Referring Provider Internal Medicine; Visit Provider Internal Medicine Cardiovascular Disease | DX: I25.10 Atherosclerotic heart disease of native coronary artery without angina pectoris (principal); I10 Essential (primary) hypertension; Z95.818 Presence of other cardiac implants and grafts | CPT/HCPCS: 99214 ==

== ENCOUNTER → 2020-03-13 11:18 | Outpatient (BNVA) | payer MEDICARE, BC, SELFPAY | PROVIDERS: PCP Internal Medicine; Referring Provider Internal Medicine; Visit Provider Internal Medicine Cardiovascular Disease | DX: I25.10 Atherosclerotic heart disease of native coronary artery without angina pectoris (principal); I10 Essential (primary) hypertension; R60.0 Localized edema; Z95.818 Presence of other cardiac implants and grafts | CPT/HCPCS: 99214 ==

== ENCOUNTER → 2020-03-21 14:29 | Outpatient (BNVA) | payer MEDICARE, BC, SELFPAY | PROVIDERS: PCP Internal Medicine; Referring Provider Internal Medicine; Visit Provider Internal Medicine Cardiovascular Disease | DX: I25.10 Atherosclerotic heart disease of native coronary artery without angina pectoris (principal); I10 Essential (primary) hypertension; R60.0 Localized edema; R07.89 Other chest pain | CPT/HCPCS: 99442; 99213 ==

== ENCOUNTER 2020-05-19 00:35 | Outpatient (CLI) | payer MEDICARE, BC, SELFPAY ==
--- NOTE | 2020-05-19 | DI.MAMMO_ITS ---
EXAM: MG MAMMO DIAGNOSTIC BI CLINICAL HISTORY: DIAGNOSTIC,LT BREAST LUMP,PERSONAL H/O LT BREAST CA. TECHNIQUE: Craniocaudal and mediolateral oblique Full Field Digital Mammography views with Computer Aided Diagnosis followed by Tomosynthesis and breast ultrasound. COMPARISON: Mammograms from 2011 through 2019 FINDINGS: The patient notes a new palpable abnormality in the superior posterior left breast. Mammography/Tomosynthesis: Left breast: A marker was placed over the area of palpable abnormality in the left axilla. The marker is included on the left MLO view but could not be included on the CC view. Masses: None seen. Architectural distortion: Stable area of postlumpectomy scarring in the upper outer quadrant of left breast. Microcalcifictions: No suspicious pleomorphic-type are seen. Skin Thickening/Nipple Retraction: None. Axilla: normal appearing axillary lymph nodes. Right breast Mammogram: No suspicious masses or suspicious microcalcifications are seen. There has been no significant alcocer e from previous exams. There are normal appearing axillary lymph nodes. Left breast US: The area of palpable abnormality in the axillary region was scanned. In this area, there is an irre gular spiculated hypoechoic mass with some vascularity measuring 11 x 8 x 6 millimeters. It is talle r than wide and shows significant posterior shadowing. It is located in the 12 o'clock position 15 c entimeters superior to the nipple. The features are suspicious for carcinoma. IMPRESSION: 1. 11 millimeter spiculated mass seen on ultrasound corresponding to the palpable abnormality. 2. The findings were discussed with the patient on the date of the examination. The results were dis cussed with Dr. Trent. BI-RADS Category 4 - Suspicious Abnormality: Biopsy should be considered Breast Density - Category C - Heterogeneously dense Breast density category C or D implies that the patient has dense breast tissue. Dense breast tissue is very common and is not abnormal but dense breast tissue can make it harder to find cancer on a ma mmogram. Also, dense breast tissue may increase their breast cancer risk. This information about the result of the mammogram report was provided to the patient to raise their awareness. Use this report when you speak with the patient about their risks for breast cancer, which includes their family hist ory. At that time, you may recommend for more screening tests (Ultrasound or MRI) as they might be us eful based on their risk. A negative radiographic report should not delay biopsy if a dominant or clinically suspicious mass is present. Up to ten percent of cancers are not identified on mammography. A negative report may reinforce clinical impression. Adenosis and dense breasts may obscure an underlying neoplasm. False positive reports average 6 to 10%. Patient will receive a letter notifying them of these results.
== END 2020-05-19 00:36 ==
LOC: DI 00:36
PROVIDERS: PCP Internal Medicine; Visit Provider Nurse Practitioner Adult Health
DX: C50.912 Malignant neoplasm of unspecified site of left female breast (principal); Z17.0 Estrogen receptor positive status [ER+]; N63.21 Unspecified lump in the left breast, upper outer quadrant
CPT/HCPCS: 76642; 77062; 77066; G0279

== ENCOUNTER → 2020-05-22 15:26 | Outpatient (BNVA) | payer MEDICARE, BC, SELFPAY | PROVIDERS: PCP Internal Medicine; Referring Provider Internal Medicine; Visit Provider Surgery | DX: D21.6 Benign neoplasm of connective and other soft tissue of trunk, unspecified (principal) | CPT/HCPCS: 19100; 99214 ==

== ENCOUNTER 2020-05-22 17:08 | Outpatient (REF) | payer MEDICARE, BC, SELFPAY ==
--- NOTE | 2020-05-22 14:15 | BREAST_PTH ---
PATIENT: Narda Rivera LOC: [facility] U#:[id number] AGE/SX: 69/F ROOM: RE05/22/[address]: Radha Agudelo : 1950 BED: DIS: 05/22/2020 SPEC #: [id number] RECD: 05/22/20 17:48 STATUS: MICHAEL REQ #: [id number] HAWK: 05/22/20 14:[address]: Radha Agudelo DEPT: Surgical Specimen RECD BY: Miroslava Newton ENTERED: 05/22/20 17:50 SP TYPE: Breast OTHR DR: Unknown,Unknown Tissues: 1 - BREAST BX NEEDLE Procedures: GROSS AND MICRO LEVEL 4 Comments: [id number]
== END 2020-05-22 17:09 | disposition home or self-care (01) ==
LOC: LBN 17:08
PROVIDERS: PCP Internal Medicine; Visit Provider Surgery
DX: D21.6 Benign neoplasm of connective and other soft tissue of trunk, unspecified (principal); Z85.3 Personal history of malignant neoplasm of breast; Z92.21 Personal history of antineoplastic chemotherapy; Z92.3 Personal history of irradiation
CPT/HCPCS: 88305

== ENCOUNTER 2020-05-30 12:40 | Day surgery (SDC) | payer MEDICARE, BC, SELFPAY ==
[2020-05-30 12:55] VITALS: BP 162/72; PULSE 52; RESP 16; TEMP 36.4; O2SAT 98
[2020-05-30] MEDS: Lactated Ringers 1,000 ML 80 ML IV (13:14)
--- NOTE | 2020-05-30 13:50 | BREAST_PTH ---
PATIENT: Narda Rivera LOC: [facility] U#:[id number] AGE/SX: 69/F ROOM: RE05/30/[address]: Radha Agudelo : 1950 BED: DIS: 05/30/2020 SPEC #: [id number] RECD: 05/30/20 17:56 STATUS: MICHAEL RENatacha #: [id number] HAWK: 05/30/20 13:[address]: Radha Agudelo DEPT: Surgical Specimen RECD BY: Miroslava Newton ENTERED: 05/30/20 17:57 SP TYPE: Breast OTHR DR: Ag Trent Tissues: 1 - BREAST INCISION/EXCISION Procedures: GROSS AND MICRO LEVEL 4 IMMUNOPEROXIDASE STAIN Comments: [id number]
[2020-05-30] MEDS: Bupivacaine 0.25% Pres-Free 30 ML VIAL (13:58)
[2020-05-30] MEDS: Bupivacaine LIPOSOME/PF 133 MG/10 ML VIAL IJ (13:58)
--- NOTE | 2020-05-30 14:02 | W.PM.OP ---
Date of service: 05/30/20 Time of Service: 14:03 Operative Note Operative Note DATE OF PROCEDURE: 05/30/20 PRE-OP DIAGNOSIS: left breast mass/hx of lest breast cancer /class 4 mammo POST-OP DIAGNOSIS: same PROCEDURE: excision breast mass SURGEON: Radha Agudelo PROFESSIONAL NURSE: Marco Robin ANESTHESIA TYPE: Local By Surgeon Refer to Anesthesia Record PATHOLOGY: other Patient was transported to: same day Patient's condition: stable Procedure Description: Patient is a 69-year-old female with a history of breast cancer in her left breast. It was treated by preoperative chemo then lumpectomy and radiation. She has a recurrence of a nodule that is actually on her anterior chest wall and not in the breast. Is not in the previous surgical site. I did do a biopsy on it in the office. Came back as negative. I am not comfortable with leaving this in situ on a breast cancer patient. She is here today for excision. Informed consent is obtained explaining risks and benefits of the procedure including but not limited to: Bleeding, infection, pneumonia, blood clots, need for removal of more tissue, complications of the anesthesia, bowel scarring. Patient was marked in preop. Ultrasound is used to localize the lesion. The area is prepped and draped in the usual sterile fashion using ChloraPrep scrub solution. This infiltrated with 10 cc of quarter percent Marcaine. 10 cc of Exparel are placed at the end of the procedure. Electrocautery was used to provide hemostasis. #15 blade is used to make 1/2 inch incision. The mass is grasped with an Allis and dissected out using cautery. It is sent to pathology. Wound is irrigated. There is no bleeding noted. Postprocedure ultrasound shows the lesion to be excised. deep tissues are approximated with 4-0 Vicryl and skin is approximated with 4-0 Monocryl running subicular fashion. Skin glue is applied. Patient tolerated the procedure well without complications and transferred recovery room stable condition.
--- NOTE | 2020-05-30 14:26 | W.PM.DSUDISC ---
Discharge Plan Disposition Patient Disposition: HOME Condition: Good Discharge Details Reason For Visit: breast biopsy Attending Provider: Radha Agudelo Primary Care Provider: Ag Trent Home Meds and New Rx's Prescriptions: No Action acetylcysteine 500 mg tablet 1,000 mg PO DAILY RF: 0 multivitamin [Daily Multiple] 1 EACH tablet 1 ea PO DAILY RF: 0 triazolam 0.125 MG tablet 0.125 mg PO PRN RF: 0 omeprazole 20 MG capsule,delayed release(DR/EC) 20 mg PO PRN RF: 0 aspirin [Aspirin Low-Strength] 81 MG tablet,chewable 81 mg PO DAILY RF: 0 diazepam 5 MG tablet 5 mg PO QD PRN RF: 0 levothyroxine [Synthroid] 200 MCG tablet 175 mcg PO DAILY RF: 0 cholecalciferol (vitamin D3) 50 mcg (2,000 unit) tablet 5,000 unit PO DAILY RF: 0 metoprolol tartrate 25 mg tablet 25 mg PO DAILY Qty: 90 RF: 3 losartan 25 mg tablet 25 mg PO DAILY Qty: 30 RF: 0 pravastatin 40 mg tablet 40 mg PO QHS RF: 0 Adult 50 Plus Probiotic 4 billion cell capsule 4,000 mmu cells PO DAILY RF: 0 vitamin B complex [B Complex-Vitamin B12] Tablet 1 tab PO DAILY RF: 0 ascorbate calcium (vitamin C) 500 mg tablet 500 mg PO DAILY RF: 0 nitroglycerin 0.4 mg tablet, sublingual 0.4 mg sublingual Q5-15M PRNRF: 0 senna 8.6 mg capsule 8.6 mg PO DAILY RF: 0 hydrochlorothiazide 25 mg tablet 25 mg PO DAILY Qty: 90 RF: 5 atorvastatin 40 mg tablet 40 mg PO DAILY Qty: 90 RF: 5 lamotrigine [Lamictal] 25 mg Tablet, Chewable Dispersible 50 mg PO DAILY RF: 0 mirtazapine 15 mg tablet 7.5 mg PO HS RF: 0 Discharge Instructions Activity:: no lifting over 10#'s let arm x 1 week Remove Dressings/Wound Care:: 24 hours Shower/Bathe:: 24 hours Diet:: As Tolerated Discharge Orders Discharge Orders: Discharge Order (Routine); Ordered 05/30/20 Ordered By: Radha Agudelo DS: Diagnosis Discharge Diagnosis (1) Breast cancer: Status: None (2) Breast lump in female: Status: Acute
== END 2020-05-30 14:39 | disposition home or self-care (01) ==
PROVIDERS: PCP Internal Medicine; Visit Provider Surgery
PROC: (CPT 19120; principal; 2020-05-30 13:15)
DX: L90.5 Scar conditions and fibrosis of skin (principal); Z85.3 Personal history of malignant neoplasm of breast
CPT/HCPCS: 11403; 88305; 88307; 88361; J2704

== ENCOUNTER → 2020-06-08 11:28 | Outpatient (BNVA) | payer MEDICARE, BC, SELFPAY | PROVIDERS: PCP Internal Medicine; Referring Provider Internal Medicine; Visit Provider Surgery | DX: Z48.89 Encounter for other specified surgical aftercare (principal); C50.912 Malignant neoplasm of unspecified site of left female breast ==

== ENCOUNTER 2020-08-29 14:21 | Outpatient (REF) | payer MEDICARE, BC, SELFPAY ==
[2020-08-29 21:43] LABS: FREE T4 1.45 ng/dL (0.76-1.46); TSH 0.24 uIU/mL (0.36-3.74)
== END 2020-08-29 14:22 | disposition home or self-care (01) ==
LOC: NCHCN 14:21
PROVIDERS: PCP Internal Medicine; Visit Provider Internal Medicine
DX: E03.9 Hypothyroidism, unspecified (principal)
CPT/HCPCS: 84439; 84443

== ENCOUNTER → 2020-12-18 13:28 | Outpatient (BNVA) | payer MEDICARE, BC, SELFPAY | PROVIDERS: PCP Internal Medicine; Referring Provider Internal Medicine; Visit Provider Internal Medicine Cardiovascular Disease | DX: I25.10 Atherosclerotic heart disease of native coronary artery without angina pectoris (principal); I10 Essential (primary) hypertension; E78.5 Hyperlipidemia, unspecified | CPT/HCPCS: 99213 ==

== ENCOUNTER 2021-01-10 17:45 | Outpatient (REF) | payer MEDICARE, BC, SELFPAY ==
[2021-01-10 22:32] LABS: ALT 32 U/L (14-59); AST 23 U/L (15-37); Albumin 3.7 g/dL (3.4-5.0); Alkaline Phosphatase 96 U/L (46-116); Anion Gap 11.2 mmol/L (3-11); BUN 14 mg/dL (7-18); Bilirubin, Total 0.3 mg/dL (0.2-1.0); CO2 26.8 mmol/L (21.0-32.0); CREATININE 0.7 mg/dL (0.55-1.02); Calcium 9.2 mg/dL (8.5-10.1); Chloride 104 mmol/L (98-107); Glucose 124 mg/dL (74-106); Potassium 3.4 mmol/L (3.5-5.1); Sodium 142 mmol/L (136-145); TSH (W/Ref FT4) 0.54 uIU/mL (0.36-3.74); Total Protein 6.8 g/dL (6.4-8.2)
== END 2021-01-10 17:46 | disposition home or self-care (01) ==
LOC: NCHCN 17:45
PROVIDERS: PCP Internal Medicine; Visit Provider Family Medicine
DX: I10 Essential (primary) hypertension (principal); E03.9 Hypothyroidism, unspecified
CPT/HCPCS: 80053; 84443

== ENCOUNTER 2021-05-22 01:35 | Outpatient (CLI) | payer MEDICARE, BC, SELFPAY ==
--- NOTE | 2021-05-22 | DI.MAMMO_ITS ---
Exam(s) MG MAMMO SCREENING 60 MIN DUR EXAM: MG MAMMO SCREENING 60 MIN DUR CLINICAL HISTORY: HX OF BREAST CA, Z85.3, SCREENING TECHNIQUE: Mammograms were interpreted according to the usual protocol including computer analysis w [facility] CAD system, tomosynthesis and C-view imaging. COMPARISON: FINDINGS: The breasts are heterogeneously dense. There is a prior left upper outer quadrant lumpectomy. No ne w mass or clumped microcalcification identified in either breast. Comparison with prior examinations including May 2020 show no significant change in appearance. IMPRESSION: No specific evidence of malignancy at this time. Routine screening examinations are suggested at ye sue intervals due to the history of breast carcinoma. BI-RADS Category 1 - Negative Breast Density - Category C - Heterogeneously dense
== END 2021-05-22 01:55 ==
PROVIDERS: PCP Internal Medicine; Visit Provider Family Medicine
DX: Z12.31 Encounter for screening mammogram for malignant neoplasm of breast (principal); Z85.3 Personal history of malignant neoplasm of breast; Z98.890 Other specified postprocedural states
CPT/HCPCS: 77063; 77067

== ENCOUNTER 2021-11-01 14:48 | Outpatient (CLI) | payer MEDICARE, BC, SELFPAY ==
[2021-11-01 14:03] LABS: Bilirubin Negative (Negative); Blood Negative (Negative); Clarity Clear (Clear); Glucose Negative (Negative); Ketones Negative (Negative); Leukocyte Esterase Negative (Negative); Nitrite Negative (Negative); Specific Gravity 1.025 (1.005-1.025); Urobilinogen 0.2 EU/dL (Up TO 0.2); pH 5.5 (5-8)
[2021-11-01 14:06] LABS: Abs Immature Grans 0.02 10^3/uL (0.0-0.06); Absolute Basophil Count 0.02 10^3/uL (0.0-0.2); Absolute Eosinophil Count 0.16 10^3/uL (0.0-0.7); Absolute Lymphocyte Count 1.51 10^3/uL (1.2-3.4); Absolute Monocyte Count 0.46 10^3/uL (0.1-0.8); Absolute Neutrophil Count 2.39 10^3/uL (1.2-6.7); Basophils % 0.4; Eosinophils % 3.5; HGB 15.4 g/dL (11.2-15.7); Immature Grans % 0.4; Lymphocytes % 33.1; MCH 28.8 pg (27.0-33.0); MCHC 33.5 % (32.0-36.0); MCV 86 fL (80-95); MPV 10.1 fL (8.0-11.0); Monocytes % 10.1; Neutrophils % 52.5; Platelet Count 238 10^3/uL (130-400); RBC 5.35 10^6/uL (3.93-5.22); RDW 12.4 % (11.7-14.6); RDW-SD 38.8 fL; WBC 4.56 10^3/uL (4.4-10.8)
[2021-11-01 14:48] LABS: ALT 29 U/L (14-59); AST 23 U/L (15-37); Albumin 3.7 g/dL (3.4-5.0); Alkaline Phosphatase 110 U/L (46-116); Anion Gap 6.8 mmol/L (3-11); BUN 12 mg/dL (7-18); Bilirubin, Total 0.5 mg/dL (0.2-1.0); C-Reactive Protein 1.89 mg/dL (0.0-0.3); CO2 29.2 mmol/L (21.0-32.0); CREATININE 0.7 mg/dL (0.55-1.02); Calcium 9.3 mg/dL (8.5-10.1); Chloride 101 mmol/L (98-107); Glucose 101 mg/dL (74-106); Potassium 3.7 mmol/L (3.5-5.1); Sodium 137 mmol/L (136-145); Total Protein 7.5 g/dL (6.4-8.2)
[2021-11-01 14:59] LABS: Calculated LDL 68 mg/dL (<100); Cholesterol 142 mg/dL (<200); HDL Cholesterol 50 mg/dL (40-60); Triglyceride 123 mg/dL (<150)
[2021-11-01 15:14] LABS: Vitamin D 25 Total 34.4 ng/mL (30-100)
== END 2021-11-01 14:49 | disposition home or self-care (01) ==
LOC: LBO 14:48
PROVIDERS: PCP Internal Medicine; Visit Provider Naturopath
DX: E78.5 Hyperlipidemia, unspecified (principal); E55.9 Vitamin D deficiency, unspecified; R10.30 Lower abdominal pain, unspecified; R50.9 Fever, unspecified
CPT/HCPCS: 36415; 80053; 80061; 82306; 81003; 85025; 86140

== ENCOUNTER 2022-03-05 07:54 | Outpatient (CLI) | payer MEDICARE, BC, SELFPAY ==
--- NOTE | 2022-03-05 07:54 | RT.EKG_ITS ---
APPROVED REPORT Exam: Resting ECG Reason for Exam: CAD Patient Location: O HR:58 bpm ECG Measurements Heart Rate 58 AXIS TX 161 P 15 QRSd 99 QRS -15 QT 450 T 18 QTc 443 Conclusion Sinus rhythm...normal P axis, V-rate 50- 99 early transition...QRS area>0 in V2 Baseline wander in lead(s) III,aVF
== END 2022-03-05 07:55 | disposition home or self-care (01) ==
LOC: DI.CARD 07:55
PROVIDERS: PCP Internal Medicine; Visit Provider Internal Medicine Cardiovascular Disease
DX: I25.10 Atherosclerotic heart disease of native coronary artery without angina pectoris (principal)
CPT/HCPCS: 93010

== ENCOUNTER → 2022-03-05 13:02 | Outpatient (BNVA) | payer MEDICARE, BC, SELFPAY | PROVIDERS: PCP Internal Medicine; Referring Provider Internal Medicine; Visit Provider Internal Medicine Cardiovascular Disease | DX: I25.10 Atherosclerotic heart disease of native coronary artery without angina pectoris (principal); I10 Essential (primary) hypertension; Z95.5 Presence of coronary angioplasty implant and graft; Z79.82 Long term (current) use of aspirin | CPT/HCPCS: 93005; 99213 ==

== ENCOUNTER 2022-04-24 17:59 | Outpatient (REF) | payer MEDICARE, BC, SELFPAY ==
[2022-04-24 21:38] LABS: TSH (W/Ref FT4) 0.51 uIU/mL (0.36-3.74)
== END 2022-04-24 18:00 | disposition home or self-care (01) ==
LOC: NCHCN 17:59
PROVIDERS: PCP Internal Medicine; Visit Provider Family Medicine
DX: I10 Essential (primary) hypertension (principal); E03.9 Hypothyroidism, unspecified; F41.8 Other specified anxiety disorders; I25.10 Atherosclerotic heart disease of native coronary artery without angina pectoris
CPT/HCPCS: 84443

== ENCOUNTER 2022-06-11 14:21 | Outpatient (CLI) | payer MEDICARE, BC, SELFPAY ==
--- NOTE | 2022-06-11 14:15 | RT.EKG_ITS ---
APPROVED REPORT Exam: Resting ECG Reason for Exam: CAD Patient Location: O HR:60 bpm ECG Measurements Heart Rate 60 AXIS MI 161 P 8 QRSd 98 QRS -18 QT 435 T 11 QTc 435 Conclusion Sinus rhythm...normal P axis, V-rate 50- 99 early transition...QRS area>0 in V2
== END 2022-06-11 14:22 | disposition home or self-care (01) ==
LOC: DI.CARD 14:25
PROVIDERS: PCP Internal Medicine; Referring Provider Internal Medicine; Visit Provider Internal Medicine Cardiovascular Disease
DX: I25.10 Atherosclerotic heart disease of native coronary artery without angina pectoris (principal); I49.3 Ventricular premature depolarization
CPT/HCPCS: 93010; 99214

== ENCOUNTER → 2022-06-11 14:21 | Outpatient (BNVA) | payer MEDICARE, BC, SELFPAY | PROVIDERS: PCP Family Medicine; Referring Provider Internal Medicine; Visit Provider Internal Medicine Cardiovascular Disease | DX: R06.09 Other forms of dyspnea (principal); R07.9 Chest pain, unspecified; I49.3 Ventricular premature depolarization; I25.10 Atherosclerotic heart disease of native coronary artery without angina pectoris; Z95.5 Presence of coronary angioplasty implant and graft | CPT/HCPCS: 93005; 99214; 99213 ==

== ENCOUNTER 2022-06-18 00:59 | Outpatient (CLI) | payer MEDICARE, BC, SELFPAY ==
--- NOTE | 2022-06-18 06:45 | DI.NM_ITS ---
APPROVED REPORT Exam: Exercise Treadmill Patient Location: Out-Patient Room/Bed: Stress Nurse: Magdalena Barker RN Ordering Provider:PRAFUL MCCORMICK, Contact Number: [phone] BMI: 32.91 Baseline Rhythm: Sinus Rhythm, Sinus Bradycardia Comment: With rare PVC's Indications: Dyspena on exertion, chest pain, CAD Medical History Medical History: GERD, HLD, anxiety, CAD, depression, osteopenia/arthritis, HTN, left sided lumpectom y, breast CA, hx SI, hx agitation, fatigue Cardiac Medications: metoprolol tartrate, losartan, nitro, triazolam, omeprazole, vitamin B complex, mirtazepine, levothyroxine, lamictal, hydrochlorothiazide, aspirin, vitamin D3, atorvastatin Allergies: Morphine, lisinopril Cardiac Risk Factors: Hypertension, hyperlipidemia, PVD/CVD Previous Cardiac Procedures: NABEEL x2 (05/2019) Pretest Chest Pain Characteristics: Chest pressure /10 Exercise History: Sedentary Physical Disabilities: None Lung Sounds: Clear to auscultation Heart Sounds: Regular Stress Test Details Test: Exercise stress testing was performed using a Shravan protocol. Nuclear Acquisition: Rest Tc-99m/Stress Tc-99m 1 day Rest Isotope: Tc-99m Sestamibi. Dose: 10.0 Date: 06/18/2022 Injection Time: 925 Stress Isotope: Tc-99m Sestamibi. Dose: 32 Date: 06/18/2022 Injection Time: 1120 HR Resting HR Supine: 58 bpm Max Heart Rate (APMHR): 147.464866 bpm Resting HR Standin bpm Target HR (85% APMHR): 124.089290 bpm Max HR Achieved: 132 bpm % of APMHR: 89.80 Recovery HR: 73 bpm HR response to stress: Normal HR response to stress Comment: Metoprolol tartrate not held prior to testing. BP Resting BP Supine: 140/92 mmHg Resting BP Standin/100 mmHg Max BP: 220/110 mmHg Recovery BP: 162/82 mmHg BP response to stress: Normal blood pressure response to stress. ECG Resting ECG: Sinus Rhythm Ectopy: Rare couplet Stress ECG: Sinus Tachycardia ST Change: No significant ST segment changes noted Arrhythmia: None Recovery ECG: Sinus Rhythm Recovery ST Change: No significant ST segment changes noted Recovery Arrhythmia: Rare PAC and PVCs Clinical Reason for Termination: Fatigue Stress Symptoms: General Fatigue, Dyspnea Exercise duration: 5 min59 sec Highest Stage Reached: Stage 2: 2.5 mph at 12% grade. Exercise capacity: 7.05 METs Angina Score: None Euceda Treadmill Score: 6 Rate Pressure Product: [id number] Stress ECG Conclusion 1. Resting electrocardiogram was within normal limits 2. Patient exercised on the Shravan protocol completed a workload of 7.05 METS limited by fatigue 3. Normal heart rate and blood pressure response to exercise. Patient achieved 90% of predicted hear t rate for age 4. There was no electrocardiographic evidence of myocardial ischemia 5. There were no significant dysrhythmias Euceda Treadmill Score is 6 which is Low risk. Stress Test Summary STAGE Time (mins) Speed (mph) Grade (%) HR BP SpO2 SYMPTOMS METS Supine 58 140/92 Standing 63 150/100 98% Baseline chest pressure 1/10 1 3 1.7 10 102 150/102 98% 4.5 2 6 2.5 12 132 98% 7 1 min recovery 103 220/110 99% 3 min recovery 76 198/58 6 min recovery 73 162/82 Baseline chest pressure 1/10. Chest pressure did not change during test or recovery. MPI Conclusion There is normal myocardial perfusion, no ischemia or prior infarction EF is 58% with normal wall motion Radiologist Interpretation Radiologist Interpretation by: Devin Chase MD Interpretation Date/Time: 06/18/2022 15:58:23
== END 2022-06-18 01:19 ==
LOC: DI 00:59
PROVIDERS: PCP Family Medicine; Visit Provider Internal Medicine Cardiovascular Disease
DX: I25.10 Atherosclerotic heart disease of native coronary artery without angina pectoris (principal)
CPT/HCPCS: 78452; 93016; 93018; 93017

== ENCOUNTER → 2023-03-04 13:41 | Outpatient (BNVA) | payer MEDICARE, BC, SELFPAY | PROVIDERS: PCP Family Medicine; Visit Provider Internal Medicine Cardiovascular Disease | DX: I25.10 Atherosclerotic heart disease of native coronary artery without angina pectoris (principal); I10 Essential (primary) hypertension | CPT/HCPCS: 99213 ==

== ENCOUNTER → 2023-11-20 13:34 | Outpatient (BNVA) | payer MEDICARE, BC, SELFPAY | PROVIDERS: PCP Family Medicine; Referring Provider Family Medicine; Visit Provider Physical Therapy Assistant | DX: Z12.11 Encounter for screening for malignant neoplasm of colon (principal); Z86.010 Personal history of colon polyps ==

== ENCOUNTER 2023-12-08 11:00 | Day surgery (SDC) | payer MEDICARE, BC, SELFPAY ==
[2023-12-08 11:42] VITALS: BP 129/59; PULSE 54; RESP 16; TEMP 36.5; O2SAT 95
--- NOTE | 2023-12-08 12:09 | ANES.PREOP_ITS ---
General Info Date of Service Date Performed: 12/08/23 Height: 5 ft 2 in Weight: 73.4 kg Body Mass Index (BMI): 29.5 Surgical Procedure: Operation Date: 12/08/23 12:20 Proposed Procedure Side Surgeon jose Manuel MD Meds Allergies and Home Medications Allergies Allergy/AdvReac Type Severity Reaction Status Date / Time morphine AdvReac Severe Nausea/Vomi Verified 12/08/23 11:39 ting lisinopril AdvReac cough Verified 12/08/23 11:39 Home Medication ?Medication ?Instructions ?Recorded aspirin 81 mg chewable tablet 81 mg PO DAILY 12/23/14 (Aspirin Low-Strength) multivitamin (Daily Multiple 1 ea PO DAILY 12/23/14 tablet) triazolam 0.125 mg tablet 0.125 mg PO PRN 12/23/14 levothyroxine 200 mcg tablet 175 mcg PO DAILY 02/13/15 (Synthroid) cholecalciferol (vitamin D3) 50 5,000 unit PO DAILY 06/08/19 mcg (2,000 unit) tablet metoprolol tartrate 25 mg tablet 25 mg PO DAILY #90 tabs 03/21/20 ascorbate calcium (vitamin C) 500 500 mg PO DAILY 05/22/20 mg tablet lactobacillus combination no.9 4 4,000 mmu cells PO DAILY 05/22/20 billion cell capsule (Adult 50 Plus Probiotic) nitroglycerin 0.4 mg sublingual 0.4 mg sublingual Q5-15M PRN 05/22/20 tablet sennosides 8.6 mg capsule (senna) 8.6 mg PO DAILY 05/22/20 vitamin B complex (B 1 tab PO DAILY 05/22/20 Complex-Vitamin B12 tablet) losartan 25 mg tablet 25 mg PO DAILY #90 tabs 08/04/20 lamotrigine 25 mg chewable 75 mg PO DAILY 12/18/20 dispersible tablet (Lamictal) mirtazapine 15 mg tablet 15 mg PO HS 12/18/20 atorvastatin 40 mg tablet See Rx Instructions .Route 02/24/23 .COMPLEX #90 tabs magnesium 200 mg tablet 200 mg PO DAILY 03/04/23 hydrochlorothiazide 25 mg tablet 25 mg PO DAILY #90 tabs 07/31/23 bisacodyl 5 mg tablet,delayed 5 mg PO ONCE #4 tabs 11/20/23 release (Dulcolax (bisacodyl)) polyethylene glycol 3350 17 17 g PO ONCE #238 grams 11/20/23 gram/dose oral powder Current Visit Medications: Current Medications Generic Name Dose Route Start Last Admin Trade Name Sylvie PRN Reason Stop Dose Admin Ringer's Solution 1,000 mls @ 80 mls/hr 12/08/23 06:00 IV 01/04/24 23:59 INFUSION IZAIAH IV Miscellaneous Supplies 1 each 12/08/23 06:00 Iv Access IV 01/04/24 23:59 DIRECTED IZAIAH Sodium Chloride 0 ml 12/08/23 06:00 Normal Saline Flush 10 Ml Syr IV 01/04/24 23:59 PRN PRN Sodium Chloride 0 ml 12/08/23 06:00 Normal Saline 10 Ml Vial IJ 01/04/24 23:59 DIRECTED PRN Sterile Water 0 ml 12/08/23 06:00 Water,Injection,Sterile 10 Ml Vial IJ 01/04/24 23:59 DIRECTED PRN PFSH Active Problems Active Problems: Problem Status Onset Code Constipation Acute K59.00 Breast lump in female Acute N63.0 Breast mass, left Acute N63.20 GERD (gastroesophageal reflux disease) Chronic K21.9 CAD (coronary artery disease) Chronic I25.10 Cough Acute R05 Nausea Acute R11.0 Bilateral acute otitis media Acute H66.93 Medical History Medical History (Updated 12/04/23 @ 13:33 by Matthew Carty) Continuous cannabis use Depression Osteopenia Urinary hesitancy Allergic conjunctivitis, bilateral Fatigue Suicidal ideation Left eye pain Vitamin D deficiency Exertional chest pain Per pt. states she had full work up-had to have cardiac cath w/ stents Agitation Osteoarthritis Insomnia Surgical History Surgical History (Updated 12/04/23 @ 13:33 by Matthew Carty) H/O cardiac catheterization x2 stents. 2019. Per pt, f/u annually 02/2023 sentinel lymph node biopsy port-a-cath placement Right chest wall removed Replacement of total knee joint bilateral ORIF right femur Breast, Lumpectomy Tobacco Smoking/Tobacco Use Status: Never Alcohol Alcohol Intake: never Substance Use Substance use: Occasionally Substance use type: marijuana Vital Signs and Lab Results Vital Signs Most Recent Vital Signs in EMR: Most Recent Vital Signs Temp Pulse Resp BP Pulse Ox 36.5 C 54 L 16 129/59 L 95 12/08/23 11:42 12/08/23 11:42 12/08/23 11:42 12/08/23 11:42 12/08/23 11:42 Lab Results Blood Type / Crossmatch: No Data to Display Complete Blood Count: No Data to Display Complete Metabolic Panel: No Data to Display Liver Function Panel: No Data to Display Coagulation Panel: No Data to Display Cardiac Panel: No Data to Display Arterial Blood Gas: No Data to Display Venous Blood Gas: No Data to Display Pancreas Panel: No Data to Display Thyroid Panel: No Data to Display Infectious Disease: No Data to Display Blood Cultures: No Data to Display Toxicology Panel: No Data to Display Imaging and Studies Imaging and Studies Study information below may be from another EMR and interpreted by another pr ovider. Please see original notes in EMR for more complete details. EKG Summary: 06/11/22: Exam: Resting ECG Reason for Exam: CAD Patient Location: O HR:60 bpm ECG Measurements Heart Rate 60 AXIS MT 161 P 8 QRSd 98 QRS -18 QT 435 T11 QTc 435 Conclusion Sinus rhythm...normal P axis, V-rate 50- 99 early transition...QRS area>0 in V2 Stress Test Summary: 06/18/22: MPI Conclusion There is normal myocardial perfusion, no ischemia or prior infarction EF is 58% with normal wall motion Echocardiogram Summary: 06/19/19: Conclusion Normal left ventricular wall thickness and chamber size. EF is 60%. Segmental wall motion is normal There is no chamber enlargement There is no significant structural valvular disease Mild mitral regurgitation Trace tricuspid regurgitation with normal estimated right ventricular systolic pressure Anesthesia Assessment and Plan Anesthesia History Personal History: PONV Family History: No Family History of Anesthesia Complications Exercise Tolerance Exercise Tolerance: Metabolic Equivalents>4 Pertinent Negatives Pertinent Negatives: No Symptoms of GERD and No Major Pulmonary Symptoms or Complaints Cardiac & Pulmonary Exam Cardiac Exam: Normal S1/S2 Heart Sounds Pulmonary Exam: Clear Bilateral Breath Sounds Implantable Cardiac Device Does patient have a Pacemaker or an ICD?: No Airway Exam Known Difficult Airway: No Mallampati Class: 3 Mouth Opening: Narrow (< 3cm) Thyromental Distance: Greater than 3 cm Neck Range of Motion: Full ROM Neck Circumference: Normal Teeth Condition: Normal Dentition ASA Classification ASA Score: ASA 3 Emergency Case?: No NPO Status NPO Status: NPO Clears >2 hours, Solids >8 hours Anesthesia Plan Resuscitation Status: Full Code Anesthesia Technique: General Anesthesia Airway Planned: Natural Airway Monitors Used: Standard Monitors
[2023-12-08] MEDS: Lactated Ringers 1,000 ML 80 ML IV (12:20)
--- NOTE | 2023-12-08 12:28 | W.COLOREPORT ---
Date of service: 12/08/23 Time of Service: 12:28 Colonoscopy Report Procedure Description: PROCEDURES PERFORMED: 1. Colonoscopy with cold forceps polypectomy x4 PREOPERATIVE DIAGNOSIS: Surveillance colonoscopy POSTOPERATIVE DIAGNOSIS: Colorectal polyps, diverticulosis, grade 1 internal hemorrhoids SURGEON: Dominic Manuel MD INDICATION for procedure: The patient is a 73-year-old woman with no symptoms due for surveillance colonoscopy. Her last colonoscopy was 14-15 years ago with reported hyperplastic polyps being removed. There is no family history of colon cancer. FINDINGS: In the transverse colon 2 small 2 to 3 mm sessile polyps removed with cold forceps technique and sent as 1 specimen. Further along in the transverse colon another 3-5 mm sessile polyp was removed with cold forceps technique. In the rectum just above the dentate line another 3-5 mm sessile polyp was removed with cold forceps technique. Some mild diverticular changes are present in the sigmoid colon only. No obvious stricture or fibrosis and definitely no diverticulitis. Minimal/mild grade 1 internal hemorrhoids SURVEILLANCE interval/FOLLOW-UP: 3 years if the polyps are all adenomatous which is what I suspect. SPECIMENS: yes EBL: Minimal COMPLICATIONS: None QUALITY of prep: Excellent Procedure in detail: The patient gave written consent and was in agreement with the indications, the potential risks as well as the benefits of the procedure. They were taken to the endoscopy suite and laid in the left lateral decubitus position. A timeout was performed and anesthesia was administered which was tolerated well. I started the procedure. Digital rectal and visual examination was performed and grossly within normal limits. A well-lubricated flexible colonoscope was then introduced and passed without any notable difficulty all the way to the cecum identified by the ileocecal valve and the appendiceal orifice. The terminal ileum was briefly intubated and looked normal. The scope was then slowly withdrawn with the above-noted findings. The patient tolerated the procedure well and was taken to the PACU in hemodynamically stable condition.
--- NOTE | 2023-12-08 12:28 | W.PM.DSUDISC ---
Date of service: 12/08/23 Time of Service: 12:29 Discharge Plan Disposition Patient Disposition: Home Condition: Good Discharge Details Attending Provider: Emmanuel Manuel Primary Care Provider: Theodore Phan Home Meds and New Rx's Prescriptions: No Action bisacodyl [Dulcolax (bisacodyl)] 5 mg tablet,delayed release (DR/EC) 5 mg PO ONCE Qty: 4 0RF Rx Instructions: Take per colonoscopy instructions provided by ordering providers office polyethylene glycol 3350 17 gram/dose powder 17 g PO ONCE Qty: 238 0RF Rx Instructions: Take per colonoscopy instructions provided by ordering providers office magnesium 200 mg tablet 200 mg PO DAILY multivitamin [Daily Multiple] 1 EACH tablet 1 ea PO DAILY triazolam 0.125 MG tablet 0.125 mg PO PRN aspirin [Aspirin Low-Strength] 81 MG tablet,chewable 81 mg PO DAILY levothyroxine [Synthroid] 200 MCG tablet 175 mcg PO DAILY cholecalciferol (vitamin D3) 50 mcg (2,000 unit) tablet 5,000 unit PO DAILY metoprolol tartrate 25 mg tablet 25 mg PO DAILY Qty: 90 3RF Adult 50 Plus Probiotic 4 billion cell capsule 4,000 mmu cells PO DAILY Rx Instructions: administer with a meal vitamin B complex [B Complex-Vitamin B12] Tablet 1 tab PO DAILY ascorbate calcium (vitamin C) 500 mg tablet 500 mg PO DAILY nitroglycerin 0.4 mg tablet, sublingual 0.4 mg sublingual Q5-15M PRN Rx Instructions: do not exceed 3 doses per episode senna 8.6 mg capsule 8.6 mg PO DAILY losartan 25 mg tablet 25 mg PO DAILY Qty: 90 3RF atorvastatin 40 mg tablet See Rx Instructions .ROUTE .COMPLEX Qty: 90 3RF Dose Instruction: TAKE 1 TABLET EVERY DAY Rx Instructions: TAKE 1 TABLET EVERY DAY hydrochlorothiazide 25 mg tablet 25 mg PO DAILY Qty: 90 5RF lamotrigine [Lamictal] 25 mg tablet, chewable dispersible 75 mg PO DAILY mirtazapine 15 mg tablet 15 mg PO HS Discharge Instructions Additional Instructions: FINDINGS: Some small polyps were found and removed today. These are nothing to worry about and they are the reason we do the colonoscopy. They do get tested just to make sure. You will get called with those results in 1 to 2 weeks. Incidentally, some mild diverticular disease and some mild hemorrhoid disease was seen. These are common conditions which are benign and nothing needs to be done about them. Stand Alone Forms: Colonoscopy Post Instructions Activity:: Activity as Tolerated Diet:: As Tolerated
[2023-12-08 12:32] VITALS: BMI 29.5
--- NOTE | 2023-12-08 13:02 | BOWEL_PTH ---
PATIENT: Narda Rivera LOC: [facility] U#:[id number] AGE/SX: 73/F ROOM: RE12/08/[address]: Emmanuel Manuel : 1950 BED: DIS: 12/08/2023 SPEC #: [id number] RECD: 12/08/23 18:07 STATUS: [facility] #: [id number] HAWK: 12/08/23 13:[address]: Emmanuel Manuel DEPT: Surgical Specimen RECD BY: Miroslava Newton ENTERED: 12/08/23 18:11 SP TYPE: Bowel OTHR DR: Theodore Phan Tissues: 1 - BIOPSY BOWEL 2 - BIOPSY BOWEL 3 - BIOPSY BOWEL Procedures: GROSS AND MICRO LEVEL 4 Comments: [id number]
[2023-12-08 13:22] VITALS: BP 109/49; PULSE 51; RESP 16; TEMP 36; O2SAT 95
--- NOTE | 2023-12-08 13:35 | W.ANESPOSTOP ---
Postoperative Evaluation Date, Time and Location Date Performed: 12/08/23 Time Performed: 12:25 Patient Location: Day Surgery Unit Vital Signs Most Recent Imported Vital Signs: Most Recent Vital Signs Temp Pulse Resp BP Pulse Ox 36.0 C L 51 L 16 109/49 L 95 12/08/23 13:22 12/08/23 13:22 12/08/23 13:22 12/08/23 13:22 12/08/23 13:22 Pain Score Most Recent Pain Score: Most Recent Pain Score Pain Level 0 12/08/23 13:22 Assessment Mental Status: Arousable with meaningful communication Airway and Respiratory Function: Patent airway with normal (patient baseline) respiratory exam Cardiovascular Function: Hemodynamically Stable Hydration Status: Adequately Hydrated Nausea & Vomiting: No Nausea or Vomiting Pain: Pt. Denies Any Pain Peripheral Nerve Block: Patient did not receive a nerve block
[2023-12-08 13:56] VITALS: BP 138/60; PULSE 54; RESP 16; TEMP 36.2; O2SAT 98
== END 2023-12-08 14:44 | disposition home or self-care (01) ==
PROVIDERS: PCP Family Medicine; Visit Provider Student in an Organized Health Care Education/Training Program
PROC: 0DJD8ZZ Inspection of Lower Intestinal Tract, Via Natural or Artificial Opening Endoscopic (ICD-10-PCS; CPT 45378; principal; 2023-12-08 12:15)
DX: Z12.11 Encounter for screening for malignant neoplasm of colon (principal); D12.3 Benign neoplasm of transverse colon; K62.1 Rectal polyp; K57.30 Diverticulosis of large intestine without perforation or abscess without bleeding; K64.0 First degree hemorrhoids
CPT/HCPCS: 45380; 00123; 88305; J1596; J2001; J2704

== ENCOUNTER 2024-02-17 15:54 | Outpatient (REF) | payer MEDICARE, BC, SELFPAY ==
--- OUTSIDE RECORDS SUMMARY | 2024-02-17 15:55 | XMS_ITS | Referral Summary ---
Author Organization [facility] Address [address] [place] [address] Care Team Providers Care Carpet Jack Name Role Phone Unavailable Primary Care Provider Unavailabl e Encounters Date Type Department Care Team Description 12/09/2023 Lab Requisition [facility] Pathology & Laboratory Medicine - [facility] [address] [place] [address] Emmanuel Manuel MD Personal history of colonic polyps from Last 3 Months Social History Tobacco Use Types Packs/Day Years Used Date Smoking Tobacco: Never Assessed Comments Unknown Sex and Gender Information Value Date Recorded Sex Assigned at Not on file Legal Sex Female 18:43 EST Gender Identity Not on file Sexual Orientation Not on file Plan of Treatment Not on file Procedures Procedure Name Priority Date/Time Associated Diagnosis Comments SURGICAL PATHOLOGY Today 12/08/2023 13 :02 EDT Personal history of colonic polyps from Last 3 Months Results * SURGICAL PATHOLOGY (12/08/2023 13:02 EDT) Note to Patient The following pathology results have been interpreted by your pathologist and may be available to you before your health provider has had the opportunity to review them. Please allow time for your provider to receive these results and explore management options, if applicable. 12/11/2023 14:12 EDT [facility] Final Diagnosis A. COLON, TRANSVERSE, POLYP, BIOPSY: - Tubular adenoma. B. COLON, TRANSVERSE, POLYP X2, BIOPSY: - Tubular adenoma. C. RECTUM, POLYP, BIOPSY: - Hyperplastic polyp. - Deeper sections have been examined. 12/11/2023 14:12 [facility] Attestation There was significant resident/fellow involvement in the diagnostic evaluation of this case. By the signature below, the attending physician certifies that they have personally conducted a gross and/or microscopic examination of the described specimens and rendered or confirmed the above diagnosis. 12/11/2023 14:12 [facility] at 1412 Clinical History Hx of colon polyps 12/11/2023 14:12 [facility] Gross Description A. Received in formalin labelled with proper patient identification (initials B, S) and 1. Transverse colon polyp are 2 doll tissues (0.4 x 0.1 x 0.1 cm and 0.3 x 0.1 x 0.1 cm). Entirely submitted in A1. B. Received in formalin labelled with proper patient identification (initials B, S) and 2. Transverse colon polyp x2 are 5 doll-brown tissues (0.3 x 0.2 x 0.1 cm to 0.1 x 0.1 by less than 0.1 cm). Entirely submitted in B1. Please note the smaller tissues may not survive processing. C. Received in formalin labelled with proper patient identification (initials B, S) and 3. Rectal polyp is a single doll-brown tissue (0.3 x 0.2 x 0.1 cm). Submitted intact in C1. Nurys Hamilton 12/09/2023 9:21 12/11/2023 14:12 [facility] Resident/Gato w: Canelo Mar DO 12/11/2023 14:12 [facility] Performing Lab [facility] 12/11/2023 14:12 [facility] Scanned Images 12/11/2023 14:12 [facility] Tissue SPECIMEN FROM RECTUM / Unknown 12/08/2023 13:02 EDT 12/09/2023 8:13 EDT Tissue specimen (specimen) POLYP OF COLON / Unknown 12/08/2023 13:02 EDT 12/09/2023 8:13 EDT Tissue specimen (specimen) SPECIMEN FROM RECTUM / Unknown 12/08/2023 13:02 EDT 12/09/2023 8:13 EDT Emmanuel Manuel MD PATHOLOGY ORDERABLES F inal Result [facility] [address] [place] [address] from Last 3 Months Insurance [facility] [place] Member Subscriber Plan / Payer ( fective 2019-Present) Name:Narda Rivera Relation to Subscriber:Self Name:Narda Rivera Payer ID:[id number] (NAIC) Type:[facility] Address: [address] [id number] MEDICARE [place]
--- OUTSIDE RECORDS SUMMARY | 2024-02-17 15:55 | XMS_ITS | Clinical Summary ---
Author Organization [facility] Address [address] [place] [address] Care Team Providers Care Food Cart Attendant Name Role Phone Unavailable Primary Care Provider Unavailabl e Encounters Date Type Department Care Team Description 12/09/2023 Lab Requisition [facility] Pathology & Laboratory Medicine - [facility] [address] [place] [address] Emmanuel Manuel MD Personal history of colonic polyps from Last 3 Months Social History Tobacco Use Types Packs/Day Years Used Date Smoking Tobacco: Never Assessed Comments Unknown Sex and Gender Information Value Date Recorded Sex Assigned at Not on file Legal Sex Female 18:43 EST Gender Identity Not on file Sexual Orientation Not on file Plan of Treatment Health Maintenance Due Date Last Done Comments Hepatitis C Screen 1950 Fall Risk Screening 2013 RSV Immunization ( o r 60+ Years) (1 - 1-dose 75+ series) 09/06/2023 COVID-19 Vaccine ( season) 2023 Procedures Procedure Name Priority Date/Time Associated Diagnosis [...] explore management options, if applicable. 12/11/2023 14:12 [facility] Final Diagnosis A. COLON, TRANSVERSE, POLYP, BIOPSY: - Tubular adenoma. B. COLON, TRANSVERSE, POLYP X2, BIOPSY: - Tubular adenoma. C. RECTUM, POLYP, BIOPSY: - Hyperplastic polyp. - Deeper sections have been examined. 12/11/2023 14:12 [facility] Attestation There was significant resident/fellow involvement in the diagnostic evaluation of this case. By the signature below, the attending physician certifies that they have personally conducted a gross and/or microscopic examination of the described specimens and rendered or confirmed the above diagnosis. 12/11/2023 14:12 [facility] at [address]12 Clinical History Hx of colon polyps 12/11/2023 14:12 [facility] Gross Description A. Received in [...] C1. Nurys Hamilton 12/09/2023 9:21 12/11/2023 14:12 [facility] Resident/Gato w: Canelo Mar DO 12/11/2023 14:12 [facility] Performing Lab [facility] 12/11/2023 14:12 [facility] Scanned Images 12/11/2023 14:12 [facility] Tissue SPECIMEN FROM RECTUM / Unknown 12/08/2023 13:02 EDT 12/09/2023 8:13 EDT Tissue specimen (specimen) POLYP OF COLON / Unknown 12/08/2023 13:02 EDT 12/09/2023 8:13 EDT Tissue specimen (specimen) SPECIMEN FROM RECTUM / Unknown 12/08/2023 13:02 EDT 12/09/2023 8:13 EDT Emmanuel Manuel MD PATHOLOGY ORDERABLES F inal Result [facility] [address] [place], [place] [id number] from Last 3 Months Insurance [facility] Address: [address] [address] MEDICARE [place]
--- OUTSIDE RECORDS SUMMARY | 2024-02-17 15:56 | XMS_ITS | Encounter Summary ---
Author Organization [facility] [place] [address] Care Team Providers Care Nuclear Auxiliary Operator Name Role Phone Ag Trent MD Primary Care Provider [phone] Reason for Visit * Auth/Cert Specialty Diagnoses / Procedures Referred By Sary kee Referred To Contact Diagnoses CAD (coronary artery disease) Screening for cardiovascular condition [Z13.6]/Abnormal stress test [R94.39] Post-Op monitoring Procedures PRG CATH PLMT LEFT HEART CATH & ARTS W/INJ & ANGIO IMG S&I CARDIAC CATHETERIZATION CORONARY ANGIOGRAPHY; W [facility],POSSIBLE PCI Referral ID Status Reason Start Date Expiration Date Visits Re quested Visits Authorized [id number] 1 1 Encounter Details Date Type Department Care Team (Latest Contact Info) Description 03/26/2019 9:43 AM EST - 03/27/2019 1:47 PM [facility] Hospital Encounter [place] [address] Nicholas Diane MD [facility] [place] [address] [place] [address] Screening for cardiovascular condition; Abnormal stress test; Coronary artery disease, angina presence unspecified, unspecified vessel or lesion type, unspecified whether [place] or transplanted heart Discharge Disposition: Home Social History Tobacco Use Types Packs/Day Years Used Date Smoking Tobacco: Never Smokeless Tobacco: Never Alcohol Use Standard Drinks/Week Comments No 0 (1 standard drink = 0.6 oz pur e alcohol) Sex and Gender Information Value Date Recorded Sex Assigned at Not on file Gender Identity Not on file Sexual Orientation Not on file documented as of this encounter Last Filed Vital Signs Vital Sign Reading Time Taken Comments Blood Pressure 102/43 03/27/2019 8:35 AM EST Pulse 57 03/27/2019 4:18 AM EST Temperature 37.3 ??C (99.1 ??F) 03/27/2019 8:35 AM ES T Respiratory Rate 20 03/27/2019 8:35 AM EST Oxygen Saturation 97% 03/27/2019 8:35 AM EST Inhaled Oxygen Concentration - - Weight 83.2 kg (183 lb 6.4 oz) 03/26/2019 10:28 AM EST Height 158.8 cm (5' 2.5) 03/26/2019 7:10 PM EST Body Mass Index 33.01 03/26/2019 10:28 AM EST documented in this encounter Discharge Summaries * Isaac Morse - 03/27/2019 7:42 AM EST Discharge Summary Patient Name: Narda Rivera Patient Age: 68 y.o. Language: Yemeni Race: White Ethnicity: Not nor Admit date: 03/26/2019 Discharge date and time: 03/27/20197:42 AM Attending Physician: Nicholas Diane MD Discharge Physician: Isaac Morse MD Follow-up Recommendations for Providers: - dual antiplatelet regimen as follows: - aspirin 81 mg daily lifelong - clopidogrel 75 mg daily for 6 months after PCI for stable ischemic heart disease - recommend follow up with cardiology in 3-4 weeks Inpatient Provider Contact Information: Nicholas Diane MD - attending Isaac Morse MD - Fellow Discharge Diagnoses (Hospital Problems) and Secondary Diagnoses (Chronic Problems): Active Hospital Problems Diagnosis ??? CAD (coronary artery disease) Resolved Hospital Problems No resolved problems to display. Active Non-Hospital Problems Diagnosis ??? Hypothyroidism ??? Malignant neoplasm of left female breast (BREAST CANCER) Diagnosis: Left 3.5 cm IDC with lobular features, lymphovascular invasion present, SLN 2/2 positive, ER+/IL+, Her-2 unaplified, T2,at least N1a, Mx Treatment:s/p left partial mastectomy with sentinel lymph node biopsy the on 02/23/14 - 03/29/14 1-st cycle of dd-AC with neulasta support - 04/12/14 2-nd cycle of dd-AC with neulasta support - 04/25/14 3-rd cycle of dd-AC with neulasta support - 05/10/14 4-th cycle of dd-AC with neulasta support - 05/24/14 1-st cycle of weekly Taxol 80 mg/m2 - 08/09/14 completed weekly Taxol XRT 08/30/14 - 10/18/14 Operations/Major Procedures: Operations: Procedure(s): CARDIAC CATHETERIZATION CORONARY ANGIOGRAPHY; [facility],POSSIBLE PCI History of Presentation: Narda Rivera??is a 68 y.o.??female??referred for cardiac catheterization by??dr. Mariee??for evaluation of angina and + stress test. ?? Briefly,??she??has a history of??hypertension,??prior XRT. Over the course of the past few??weeks,??she??has been experiencing chest heaviness and shortness of breath. Due to this, they were sent for??exercise SPECT, which revealed??anterior ischemia. ?? After further discussion, they were sent for cardiac catheterization for further evaluation. ?? Coronary angiography revealed LM: mild LAD: 98% proximal LCx: OM1 proximal 80% RCA: 45% mid ?? PCI was performed to both the OM and LAD lesions. For full details of the intervention, see cath report below. ?? This patient is admitted post PCI for IV hydration, pain management, access site management in the setting of anticoagulation, telemetry monitoring, evaluation of their medical condition, and cardiacrehabilitation. Hospital Course: The patient was admitted following cardiac catheterization for overnight monitoring and observation. The patient did well overnight without significant chest pain or arrhythmias on telemetry. The right radial access site was evaluated and the radial pulse was palpable with no evidence of vascular co mpromise to the right hand. A repeat ECG was reviewed with no evidence of active ischemia. VS and renal function remained stable. The patient ambulated with nursing without chest discomfort or exertional dyspnea. The patient met criteria for discharge, and was released home in stable condition. Functional and Cognitive Status: Independent in ALDs and IADLs, A&O x 3, at baseline Important Studies and Lab Data: Labs: Lab Results Component Value Date WBC 6.0 03/27/2019 HGB 14.0 03/27/2019 HCT 40.5 03/27/2019 PLATELET 250 03/27/2019 No results for input(s): INR in the last 168 hours. Lab Results Component Value Date NA 141 03/27/2019 K 4.2 03/27/2019 CL 104 03/27/2019 CO2 24 03/27/2019 BUN 15 03/27/2019 CREATININE 0.66 (L) 03/27/2019 No results for input(s): CK, TROPONINT in the last 168 hours. Lab Results Component Value Date CHLPL 186 03/27/2019 HDL 40 03/27/2019 CHOLHDL 4.6 03/27/2019 TRIG 165 03/27/2019 LDLCHOL 113 03/27/2019 Studies: Cath Report Coronary Angiography: Dominance: Right Left Main The left main was normal, free of disease. Left Anterior Descending There was a 98% long segmental stenosis of the proximal segment of the left anterior descending artery (LAD). The LAD was large. Left Circumflex There was an 80% long segmental stenosis of the proximal segment of the first obtuse marginal branch (OM1) of the left circumflex (LCX). The OM1 was moderate in size. Right Coronary Artery There was a 35% long segmental stenosis of the mid segment of the right coronary artery (RCA). Indication for Intervention: Coronary intervention was indicated for treatment of high risk unstable angina. The priority for the procedure was Elective. The NCDR indication for the procedure was Other PCI Indication. Syntax Score was Low. Intervention Summary: Left Anterior Descending Artery Proximal 98% Stent insertion was performed on the 98% stenosis in the proximal segment of the LAD. This was a de esmer lesion. According to the ACC/AHA classification system, this lesion was a type B2 high risk lesion. Primary prevention of restenosis was the indication for stent insertion. This was the culprit lesion. A guidewire was placed across this lesion. Vessel flow pre intervention was JAMSHID 3. Lesion length was 15mm. Stent insertion was accomplished through a 6 Fr. EBU 3.0 guide. The lesion was predilated with a 2.50mm EUPHORA 12 MM balloon with a maximum inflation pressure of 14 atmospheres. A premounted 3.00 x 18 mm Resolute STEVEN (NABEEL) was deployed with a maximum inflation pressure of 22 atmospheres. The final outcome was defined as successful. The residual stenosis following this intervention was 5%. The final JAMSHID flow was 3. First Obtuse Marginal Branch of the LCX Proximal 80% Stent insertion was performed on the 80% stenosis in the proximal segment of the OM1. This was a de esmer lesion. This lesion was designated a type B2 high risk lesion based on ACC/AHA classification system. Primary prevention of restenosis was the indication for stent insertion. This was the culprit lesion. A guidewire was placed across this lesion. Vessel flow pre intervention was JAMSHID 3. Lesion length was 12mm. Stent insertion was accomplished through a 6 Fr. EBU 3.0 guide. The lesion was predilated with a 2.00mm EUPHORA 12 MM balloon with a maximum inflation pressure of 14 atmospheres. A premounted 2.50 x 18 mm Resolute STEVEN (NABEEL) was deployed with a maximum inflation pressure of 18 atmospheres. The final outcome was defined as successful. There was no residual stenosis following this intervention. The final JAMSHID flow was 3. Vascular Access: Vascular Access Management: Mechanical Compression of the right radial artery access site was performed. Dual Antiplatelet (DAPT) Recommendations: Drug eluting stent (NABEEL) inserted for stable ischemic heart disease (SIHD). P2Y12 Loading dose Clopidogrel 600 mg PO given in lab. Recommend continuing clopidogrel 75 mg PO daily for 6 months. Recommend continuing aspirin 81 mg unless intolerant. Conclusions: * Two vessel coronary artery disease (LAD and LCX) * Elevated left ventricular end diastolic pressure * Successful stent insertion of the proximal LAD lesion * Successful stent insertion of the proximal OM1 lesion * Recommend continuing clopidogrel 75 mg PO daily for 6 months (see DAPT Recommendations above for more information.) Pending Studies and Lab Data: None Discharge Conditions/Prognosis: Good Discharge to: Home Updated Allergies/ADRs: Allergies Allergen Reactions ??? Coumadin [Warfarin] Severe bleeding Immunizations Given this Hospitalization: There is no immunization history on file for this patient. Discharge Medications: Your Medications New Medications Dose Details clopidogrel 75 mg Tab Commonly known as: Plavix Take 1 tablet by mouth daily. 75 mg Quantity: 90 tablet Refills: 3 metoprolol succinate XL 25 mg Tablet sr Commonly known as: Toprol-XL Take 1 tablet by mouth daily. 25 mg Quantity: 90 tablet Refills: 3 Continued medications with new dosing Dose Details omeprazole 20 mg Cpdr Commonly known as: PriLOSEC Take 1 capsule by mouth daily. What changed: ?? when to take this ?? reasons to take this 20 mg Quantity: 90 capsule Refills: 1 Continued medications, unchanged Dose Details Acetylcysteine 600 mg Cap Take 600 mg by mouth 2 times daily. 600 mg Refills: 0 aspirin EC 81 mg Tbec Take 81 mg by mouth daily. 81 mg Refills: 0 b complex vitamins Cap Take 1 capsule by mouth daily. 1 capsule Refills: 0 diazePAM 5 mg Tab Commonly known as: Valium Take 5 mg by mouth as needed. Reported on 05/15/2016 5 mg Refills: 0 lactobacillus Cap Commonly known as: BACID Take 1 tablet by mouth daily. Reported on 03/12/2016 1 tablet Refills: 0 lamoTRIgine 25 mg Tab Commonly known as: LaMICtal Take 50 mg by mouth daily. 50 mg Refills: 0 mirtazapine 15 mg Tab Commonly known as: Remeron Take 7.5 mg by mouth daily. 7.5 mg Refills: 0 multivitamin Cap Take 1 capsule by mouth daily. 1 capsule Refills: 0 pravastatin 20 mg Tab Commonly known as: Pravachol Take 40 mg by mouth daily. 40 mg Refills: 0 SENNA ORAL Take by mouth daily as needed. Reported on 03/12/2016 Refills: 0 SYNTHROID ORAL Take 175 mcg by mouth daily. 175 mcg Refills: 0 turmeric root extract 500 mg Cap Take 500 mg by mouth daily. 500 mg Refills: 0 UNABLE TO FIND 2 times daily. Estrogen suppressant from medical interpreter, takes twice a day Refills: 0 VITAMIN C (ASCORBATE CALCIUM) ORAL Take by mouth. Refills: 0 VITAMIN D-3 ORAL Take by mouth daily. Refills: 0 Smoking Status at Discharge: Social History Tobacco Use Smoking Status Never Smoker Smokeless Tobacco Never Used Instructions Given to Patient at Discharge: Patient Instructions Discharge Instructions following cardiac catheterization Cardiology Instructions Call your doctor if you experience: Chest pain, dyspnea, pain or swelling in legs occurs. If you have non-emergent questions between now and the time of your follow up appointments: -During 8am-5pm Friday through Friday call [phone] to speak with a nurse in the cardiology clinic -All other times call [phone] and ask to speak to the elementary school tutor sales donor recruitment representative. MEDICATIONS Plavix -you need to be on daily Plavix for at least 6 months and aspirin for lifetime to help prevent clots forming inside of your stent. -do not stop plavix without talking to your lab assistant -You should be taking a statin medication to prevent further blockages from forming inside your heart arteries -you have also been prescribed a beta prem to help protect your heart muscle Return to work/ usual activities: 1 week, as tolerated. Do not lift anything greater than 1 gallon for milk for 1 week You can shower the day after your procedure, but don't take any tub baths or soak in pools for 1 week after your procedure. Exercise: We strongly recommend that you enroll with a cardiac rehab program. If you have not had the opportunity to meet with one of our cardiac rehab nurses in the hospital, one will call you in the next fewdays to discuss options for rehab. This is a supervised exercise program that has been shown to improve quality of life and outcomes after undergoing coronary interventional procedures. In the meantime, we recommend moderate activity (walking, housework, treadmill) to prevent deconditioning. Driving: No driving for 48 hours after catheterization. Follow up Appointments: Primary care provider: Cardiology: Ag Trent MD [phone] Follow up as planned or as needed. Please schedule an appointment to follow up with your lab assistant, Dr. Mariee in 3-6 weeks. General Instructions None Discharge References/Attachments None Isaac Morse MD Interventional Cardiology 03/27/19 7:42 AM [facility] [place]: [phone] documented in this encounter Discharge Instructions * Patient Instructions* Isaac Morse - 03/27/2019 7:29 AM EST Discharge Instructions following cardiac catheterization Cardiology Instructions Call your doctor if you experience: Chest pain, dyspnea, pain or swelling in legs occurs. If you have non-emergent questions between now and the time of your follow up appointments: -During 8am-5pm Friday through Friday call [phone] to speak with a nurse in the cardiology clinic -All other times call [phone] and ask to speak to the elementary school tutor sales donor recruitment representative. MEDICATIONS Plavix -you need to be on daily Plavix for at least 6 months and aspirin for lifetime to help prevent clots forming inside of your stent. -do not stop plavix without talking to your lab assistant -You should be taking a statin medication to prevent further blockages from forming inside your heart arteries -you have also been prescribed a beta prem to help protect your heart muscle Return to work/ usual activities: 1 week, as tolerated. Do not lift anything greater than 1 gallon for milk for 1 week You can shower the day after your procedure, but don't take any tub baths or soak in pools for 1 week after your procedure. Exercise: We strongly recommend that you enroll with a cardiac rehab program. If you have not had the opportunity to meet with one of our cardiac rehab nurses in the hospital, one will call you in the next fewdays to discuss options for rehab. This is a supervised exercise program that has been shown to improve quality of life and outcomes after undergoing coronary interventional procedures. In the meantime, we recommend moderate activity (walking, housework, treadmill) to prevent deconditioning. Driving: No driving for 48 hours after catheterization. Follow up Appointments: Primary care provider: Cardiology: Ag Trent MD [phone] Follow up as planned or as needed. Please schedule an appointment to follow up with your lab assistant, Dr. Mariee in 3-6 weeks. * Attachments The following attachments cannot be sent through Care Everywhere. * PCI (Percutaneous Coronary Intervention): Post-op (Yemeni) documented in this encounter Medications at Time of Discharge Medication Sig Dispensed Refills Start Date End Date clopidogrel (PLAVIX) 75 mg Tablet Take 1 tablet by mouth daily. 90 tablet 3 03/27/2019 metoprolol succinate XL (TOPROL-XL) 25 mg Tablet Sustained Release 24 hr Take 1 tablet by mouth daily. 90 tablet 3 03/27/2019 b complex vitamins Capsule Take 1 capsule by mouth daily. VITAMIN C, ASCORBATE CALCIUM, ORAL Take by mouth. UNABLE TO FIND 2 times daily. Estrogen suppressant from medical interpreter, takes twice a day lamoTRIgine (LAMICTAL) 25 mg Tablet Take 75 mg by mouth daily. mirtazapine (REMERON) 15 mg Tablet Take by mouth daily. Acetylcysteine 600 mg Capsule Take 600 mg by mouth 2 times daily. turmeric root extract 500 mg Capsule Take 500 mg by mouth daily. CALCIUM CARBONATE/VITAMIN D3 (VITAMIN D-3 ORAL) Take by mouth daily. LEVOTHYROXINE SODIUM (SYNTHROID ORAL) Take 175 mcg by mouth daily. diaZEPam (VALIUM) 5 mg Tablet Take 5 mg by mouth as needed. Reported on 05/15/2016 SENNOSIDES (SENNA ORAL) Take by mouth daily as needed. Reported on 03/12/2016 lactobacillus (BACID) Capsule Take 1 tablet by mouth daily. Reported on 03/12/2016 multivitamin Capsule Take 1 capsule by mouth daily. omeprazole (PRILOSEC) 20 mg Capsule, Delayed Release(E.C.)Indicati ons:Malignant neoplasm of left female breast Take 1 capsule by mouth daily. 90 capsule 1 08/09/2014 aspirin 81 mg Tablet, Delayed Release (E.C.) Take 81 mg by mouth daily. pravastatin (PRAVACHOL) 20 mg Tablet Take 40 mg by mouth daily. 04/25/2020 documented as of this encounter Progress Notes * Dariela Junior RN - 03/27/2019 11:51 AM EST The patient has met discharge criteria per policy. Discharge instruction reviewed and patient discharged to responsible adult. The After Visit Summary (AVS), and accompanying hand-outs have been reviewed with the patient; the patient /family verbalizes understanding at this time. Opportunity for clarification provided. Reportable sign and symptoms have been reviewed with patient. Patient???s pain level has been assessed and patient states that his/her level is tolerable at this time. Teaching done, patient verbalizes understanding back to RN All new medications have been reviewed with the patient. Prescriptions sent to pharmacy. Patient D/C to home At time of discharge: A & O x 4, PERRL, vss, Lungs clear. Patient is on RA, no SOB, ELIZABETH, CP No new numbness or tingling Radial and dorsalis pulses normal incision(s) RT wrist intact, no drainage, gauze/tegraderm drsgs C/D/I, skin No sign of PU or breakdown. IV removed no s/s of infection, inflammation, infiltration. Van D/C no sign of infection. Patient voiding WNL/at baseline, ambulating at baseline, eating and drinking without issues at timeof D/C Prior to D/C room searched and patient discharged with all belongs. Patient ambulated to [facility] with staff * Maria L Borjas MSW - 03/27/2019 9:17 AM EST SMART GRID ENGINEER contacted [facility] ([facility]) who confirmed pt will be picked up at [facility] today (03/27) at 12:00pm. SMART GRID ENGINEER provided RCT with contact information for self and Short Stay Unit if needed for any additional follow up. Office Of Care Management Float/Weekend Mercerizing Range Feeder JEREMY Caruso Pager [phone] * Kari Barker RN - 03/26/2019 3:01 PM EST Patient Name: Narda Rivera Patient Age: 68 y.o. Birthdate: 1950 Admit date: 03/26/2019 Attending Physician: Nicholas Diane MD Narda Rivera arrived to [facility] 11 @ 1452 from Preparation Department Supervisor, report received from Julia BUTT. Oriented to room, call perea within reach, educated on importance of using prior to getting OOB, AVSS, incision nobleeding, no hematoma noted. IV fluids continued. Denies any pain. Will continue to monitor. documented in this encounter H&P Notes * Isaac Morse - 03/26/2019 12:35 PM EST Images from the original note were not included. Interventional Cardiology Post-PCI H&P Reason for Admission: s/p PCI History: Narda Rivera is a 68 y.o. female referred for cardiac catheterization by dr. Mariee for evaluation of angina and + stress test. ?? Briefly, she has a history of hypertension, prior XRT. Over the course of the past few weeks, she has been experiencing chest heaviness and shortness of breath. Due to this, they were sent for exercise SPECT, which revealed anterior ischemia. ?? After further discussion, they were sent for cardiac catheterization for further evaluation. Coronary angiography revealed LM: mild LAD: 98% proximal LCx: OM1 proximal 80% RCA: 45% mid PCI was performed to both the OM and LAD lesions. For full details of the intervention, see cath report below. This patient is admitted post PCI for IV hydration, pain management, access site management in the setting of anticoagulation, telemetry monitoring, evaluation of their medical condition, and cardiacrehabilitation. PMH: Patient Active Problem List Diagnosis ??? CAD (coronary artery disease) ??? Hypothyroidism ??? Malignant neoplasm of left female breast (BREAST CANCER) Diagnosis: Left 3.5 cm IDC with lobular features, lymphovascular invasion present, SLN 2/2 positive, ER+/IL+, Her-2 unaplified, T2,at least N1a, Mx Treatment:s/p left partial mastectomy with sentinel lymph node biopsy the on 02/23/14 - 03/29/14 1-st cycle of dd-AC with neulasta support - 04/12/14 2-nd cycle of dd-AC with neulasta support - 04/25/14 3-rd cycle of dd-AC with neulasta support - 05/10/14 4-th cycle of dd-AC with neulasta support - 05/24/14 1-st cycle of weekly Taxol 80 mg/m2 - 08/09/14 completed weekly Taxol XRT 08/30/14 - 10/18/14 Outpatient Medications Marked as Taking for the 03/26/19 encounter (Hospital Encounter) Medication Sig Dispense Refill ??? b complex vitamins Capsule Take 1 capsule by mouth daily. ??? VITAMIN C, ASCORBATE CALCIUM, ORAL Take by mouth. ??? UNABLE TO FIND 2 times daily. Estrogen suppressant from medical interpreter, takes twice a day ??? lamoTRIgine (LAMICTAL) 25 mg Tablet Take 50 mg by mouth daily. ??? mirtazapine (REMERON) 15 mg Tablet Take 7.5 mg by mouth daily. ??? Acetylcysteine 600 mg Capsule Take 600 mg by mouth 2 times daily. ??? pravastatin (PRAVACHOL) 20 mg Tablet Take 40 mg by mouth daily. ??? turmeric root extract 500 mg Capsule Take 500 mg by mouth daily. ??? CALCIUM CARBONATE/VITAMIN D3 (VITAMIN D-3 ORAL) Take by mouth daily. ??? LEVOTHYROXINE SODIUM (SYNTHROID ORAL) Take 175 mcg by mouth daily. ??? lactobacillus (BACID) Capsule Take 1 tablet by mouth daily. Reported on 03/12/2016 ??? multivitamin Capsule Take 1 capsule by mouth daily. ??? aspirin 81 mg Tablet, Delayed Release (E.C.) Take 81 mg by mouth daily. Allergies as of 03/18/2019 - Review Complete 12/30/2018 Allergen Reaction Noted ??? Coumadin [warfarin] 02/22/2014 Social History Socioeconomic History ??? Marital status: Spouse name: Not on file ??? Number of children: Not on file ??? Years of education: Not on file ??? Highest education level: Not on file Occupational History ??? Not on file Social Needs ??? Financial resource strain: Not on file ??? Food insecurity: Worry: Not on file Inability: Not on file ??? Transportation needs: Medical: Not on file Non-medical: Not on file Tobacco Use ??? Smoking status: Never Smoker ??? Smokeless tobacco: Never Used Substance and Sexual Activity ??? Alcohol use: No ??? Drug use: Yes Types: Marijuana ??? Sexual activity: Not on file Lifestyle ??? Physical activity: Days per week: Not on file Minutes per session: Not on file ??? Stress: Not on file Relationships ??? Social connections: Talks on phone: Not on file Gets together: Not on file Attends evangelical service: Not on file Active member of club or organization: Not on file Attends meetings of clubs or organizations: Not on file Relationship status: Not on file ??? Intimate partner violence: Fear of current or ex partner: Not on file Emotionally abused: Not on file Physically abused: Not on file Forced sexual activity: Not on file Other Topics Concern ??? Not on file Social History Narrative ??? Not on file Physical Exam BP 149/67 Pulse 68 Temp 37.4 ??C (99.3 ??F) (Temporal) Resp 16 Wt 83.2 kg (183 lb 6.4 oz) SpO2 100% BMI 32.49 kg/m?? General: well-appearing, NAD HEENT: NC/AT, anicteric sclerae, OP clear, MMM Neck: supple, no LAD, no bruits or JVD Lungs: clear without W/R/R CV: RRR, S1, S2, no M/R/G Abd: Nl BS, soft, NT, ND, obese Ext: no C/C/Edema Vascular: 2+ radial, femoral, and intact distal pulses b/l Dressing intact at R wrist Assessment/ Plan: 1. CAD, s/p PCI to OM and LAD - admit for overnight monitoring - telemetry, serial ECGs, - continue dual antiplatelet therapy - IVF - Start BB, -continue statin - monitor access site - cardiac rehab consult - anticipate discharge in am -will need new RX for plavix and metoprolol at DC 2. HTN, follow up trend and titrate therapy PRN. 3. Dyslipidemia, follow up AM labs and address medication dose before DC home. Isaac Morse MD 03/26/2019 12:35 PM Associated attestation - Nicholas Diane MD - 03/26/2019 3:41 PM EST Attending Addendum: The patient was seen and examined in conjunction with the resident on rounds. My history, physical exam findings, assessment, and plan are reflected in that note. Lab and relevant imaging data was reviewed and the plan was communicated with the patient and available family. Nicholas Diane MD, [facility] Attending [employer]gun [employer] Assembly Machine Operator Pager [phone] * Isaac Morse - 03/26/2019 10:34 AM EST Images from the original note were not included. Narda Rivera is a 68 y.o. female referred for cardiac catheterization by dr. Mariee for evaluation of angina and + stress test. Briefly, she has a history of hypertension, prior XRT. Over the course of the past few weeks, she has been experiencing chest heaviness and shortness of breath. Due to this, they were sent for exercise SPECT, which revealed anterior ischemia. After further discussion, they were sent for cardiac catheterization for further evaluation. There have not been any changes in health status since last seen in clinic. No intercurrent illnesses. Patient denies fevers, chills. Patient denies any history of bleeding issues and specifically denies hematochezia, melena, hematemesis, intraabdominal bleeding, intracranial bleeding. Denies any history of kidney disease or diabetes. Aspirin/clopidogrel/warfarin: took aspirin this am Diabetic medications: n/a NPO status: since yesterday Outpatient Medications Marked as Taking for the 03/26/19 encounter (Hospital Encounter) Medication Sig Dispense Refill ??? b complex vitamins Capsule Take 1 capsule by mouth daily. ??? VITAMIN C, ASCORBATE CALCIUM, ORAL Take by mouth. ??? UNABLE TO FIND 2 times daily. Estrogen suppressant from medical interpreter, takes twice a day ??? lamoTRIgine (LAMICTAL) 25 mg Tablet Take 50 mg by mouth daily. ??? mirtazapine (REMERON) 15 mg Tablet Take 7.5 mg by mouth daily. ??? Acetylcysteine 600 mg Capsule Take 600 mg by mouth 2 times daily. ??? pravastatin (PRAVACHOL) 20 mg Tablet Take 40 mg by mouth daily. ??? turmeric root extract 500 mg Capsule Take 500 mg by mouth daily. ??? CALCIUM CARBONATE/VITAMIN D3 (VITAMIN D-3 ORAL) Take by mouth daily. ??? LEVOTHYROXINE SODIUM (SYNTHROID ORAL) Take 175 mcg by mouth daily. ??? lactobacillus (BACID) Capsule Take 1 tablet by mouth daily. Reported on 03/12/2016 ??? multivitamin Capsule Take 1 capsule by mouth daily. ??? aspirin 81 mg Tablet, Delayed Release (E.C.) Take 81 mg by mouth daily. PE NAD CV: RRR, S1 S2 physiologic, JVP estimated @ 7 cm H2O Pulm: Non-labored, CTAB, no w/r/r Abd: soft, NT, ND, +BS, no bruits Vasc: 2+ bilat radial with favorable Abhay's test on the R, 2+ bilat femoral pulses w/o bruits, 2+ bilat DP pulses Extr: wwp, no edema ASA: 3: Patient with severe systemic disease Mallampati: II: tonsillar pillars are blocked by the tongue Labs reviewed and notable for: Lab Results Component Value Date WBC 4.8 03/26/2019 HGB 15.1 03/26/2019 HCT 45.0 03/26/2019 MCV 87.2 03/26/2019 PLATELET 253 03/26/2019 Lab Results Component Value Date CREATININE 0.51 (L) 11/16/2014 BUN 13 11/16/2014 NA 139 11/16/2014 K 3.7 11/16/2014 CL 101 11/16/2014 CO2 25 11/16/2014 A/P 68 y.o. female here for cardiac catheterization for evaluation of angina and + stress test. A discussion was held reviewing the benefits and attendant risks of diagnostic or therapeutic catheterization. The risks include, but are not limited to: stroke, , myocardial infarction, bleeding, limb loss, infection, dye reaction, vascular injury, arrhythmias. If an intervention is performed, risks would include the potential for vessel closure, need for emergency CABG, subacute closure, restenosis. After a discussion about the above, and having answered all questions posed, the patient was provided with a consent which was reviewed and signed. - Proceed as planned - Consent reviewed and signed - No obvious CI to DAPT - Sedation plan: moderate/conscious sedation - FULL CODE Isaac Morse MD 03/26/2019 10:35 AM documented in this encounter Miscellaneous Notes * Plan of Care - Osito Witt RN - 03/27/2019 2:13 AM EST Problem: Patient Care Overview Goal: Plan of Care Review Outcome: Ongoing (Interventions Implemented as Appropriate) 03/27/19 0206 Coping/Psychosocial Plan Of Care Reviewed With patient Plan of Care Review Progress improving 1900 - 0700 OUTCOME EVALUATION NOTE: OUTCOME SUMMARY: Patient able to rest for a few hours overnight after PRN ambien. Access site remained CDI with strong pulse to her R wrist. Remained in normal sinus / sinus ruben throughout the night. Assessment andVS as documented. PLAN MOVING FORWARD: Discharge home if stable overnight and able to ambulate w/o any cardiac symptoms such as SOB or chest pain. INDIVIDUALIZED FALL PREVENTION INTERVENTIONS: Patient-specific fall risk factors: see assessment Assistance [level of assistance required for transfers and ambulation]: None. Supervision [direct monitoring required during toileting and ADLs]: None. Surveillance [continuous indirect monitoring]: Hourly rounding Activity Summary: Patient was able to ambulate for about 5 minutes, including a flight of stairs consisting of 28 steps w/o any increased/reported cardiac symptoms, but did note slight increase in her RR while climbing the stairs. Her vitals signs before, during, and after the activity are listed below. She was also able to ambulate to the bathroom on her own several times overnight w/o issue. Date /Initials Before During After 03/27/19 Activity HR 57 82 57 Cardiac Walk BP 118/41 N/A 137/44 O2 Sat 98% 94% 94% ECG SB NS SB RR 16 28 24 * Consult Note - Payton Rebolledo RN - 03/26/2019 3:36 PM EST Narda Rivera was seen today by Cardiac Rehabilitation for: S/p PCI Activity evaluation - Patient will complete a cardiac walk with nursing staff tomorrow morning prior to discharge. Educational packet regarding CAD, cardiac risk factors, and managing angina given to the patient. Heart diagram reviewed. Reviewed managing angina /use of sl nitroglycerin. Mediterranean diet guidelines briefly reviewed. Given parameters for home exercise. Patient has a stationary bike and treadmill at home. She usually uses one or the other for 10 minutes a day. Reviewed home walk program with her. Participation in an outpatient cardiac rehabilitation program at [facility] was discussed. Patient declined a referral to this program. She expressed concern with having to leave her home 3 days/week to attend the program. She stated she would prefer to continue to exercise at home on her bike and treadmill. I gave her a brochure for cardiac rehab at [facility] if she changes her mind. * Brief Op Note - Nicholas Diane MD - 03/26/2019 12:25 PM EST Images from the original note were not included. Preliminary Cardiac Catheterization Procedure Note: Patient Name: Narda Rivera : [id number] MR#: [id number] Case Date: 03/26/2019 Community Health Agent: Surgeon(s) and Role: * Nicholas Diane MD - Primary * Isaac Morse MD - Fellow Preoperative diagnosis: Screening for cardiovascular condition [Z13.6]/Abnormal stress test [R94.39] Postoperative diagnosis: * ASCVD * Procedure(s) performed: [facility] Coronary angio Stent insertion, coronary Access: right radial A time-out was conducted prior to the start of the procedure to verify the correct patient and procedure, procedure location, and all relevant critical information. Preliminary findings: LM: mild LAD: 98% proximal LCx: OM1 proximal 80% RCA: 45% mid Intervention: 1. Stent to proximal LAD 2. Stent to OM1 Optimize medical therapy. Van placed during procedure do to inability to void supine. The patient tolerated the procedures smoothly and was transferred from the cardiac catheterization lab to the next level of care in stable condition. No evident early complications. Full report to follow. Nicholas Diane MD documented in this encounter Plan of Treatment Scheduled Orders Name Type Priority Associated Diagnoses Orde r Schedule EKG 12 Lead ECG Routine Screening for cardiovascular condition Abnormal stress test One Time for 1 Occurrences starting 03/26/2019 until 03/26/2019 documented as of this encounter Procedures Procedure Name Priority Date/Time Associated Diagnosis Comments EKG 12-LEAD Routine 03/27/2019 7:23 AM EST Screening for cardiovascular condition BMP W/FASTING GLUCOSE Routine 03/27/2019 12:50 AM EST HEMOGRAM Routine 03/27/2019 12:50 AM EST DIFFERENTIAL, AUTOMATED Routine 03/27/2019 12:50 AM EST HC CBC,PLT & AUTO DIFF Routine 03/27/2019 12:50 AM EST LIPID PANEL (REFLEX DIRECT LDL) Routine 03/27/2019 12:50 AM EST EKG 12-LEAD Routine 03/26/2019 12:53 PM EST Coronary artery disease, angina presence unspecified, unspecified vessel or lesion type, unspecified whether [place] or transplanted heart HC VENIPUNCTURE STAT 03/26/2019 10:12 AM EST HEMOGRAM STAT 03/26/2019 10:12 AM EST DIFFERENTIAL, AUTOMATED STAT 03/26/2019 10:12 AM EST HC CBC,PLT & AUTO DIFF STAT 03/26/2019 10:12 AM EST [employer]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 03/26/2019 12:00 AM EST documented in this encounter Results * EKG 12 Lead (03/27/2019 7:23 AM EST) Ventricular rate 51 BPM MUSE SYSTEM Atrial Rate 51 BPM MUSE SYSTEM P-R Interval 172 ms MUSE SYSTEM QRS Duration 86 ms MUSE SYSTEM Q-T Interval 512 ms MUSE SYSTEM QTC Calculated (Bezet) 471 ms MUSE SYSTEM Calculated P Davidson 32 degrees MUSE SYSTEM Calculated T Davidson 23 degrees MUSE SYSTEM INTERPRETATION Sinus bradycardia ST & T wave abnormality, consider anterolateral ischemia Prolonged QT Abnormal ECG When compared with ECG of 26-MAR-2019 12:53, T wave inversion now evident in Lateral leads Confirmed by MD Pacheco, Urban Oakley ([id number]) on 03/28/2019 6:28:13 PM MUSE SYSTEM 03/27/2019 7:23 AM EST 03/28/2019 6:28 PM EST Nicholas Diane MD ECG ORDERABLES MUSE SYSTEM * Differential, Automated (03/27/2019 12:50 AM EST) Neutrophil % 54.5 % [facility] Neutrophil Absolute 3.27 1.70 - 6.10 x10(3)/[facility] Lymph % 32.8 % [facility] Lymphocytes Abs 2.0 0.9 - 3.2 x10(3)/[facility] Monocyte % 9.7 % [facility] Monocyte Abs 0.6 0.3 - 0.9 x10(3)/[facility] Eos % 2.5 % [facility] Eosinophils Abs 0.2 0.0 - 0.4 x10(3)/[facility] Basophil % 0.3 % [facility] Baso Absolute 0.0 0.0 - 0.1 x10(3)/[facility] Immature Gran % 0.20 % [facility] Comment: Immature granulocytes(IG's)percentage and absolute count will include metamyelocytes, myelocytes, and promyelocytes. Blood smears from CBCs yielding IG's will be scanned manually for concordance. If this scan disagrees with the automated IG or if promyelocytes are noted, a manual differential will be performed. Immature Gran Absolute 0.01 0.00 - 0.04 x10(3)/[facility] Blood specimen (specimen) 03/27/2019 12:50 AM EST 03/27/2019 1:01 AM EST Narrative Resulting Agency Comment Spec In Lab Isaac Morse MD HEMATOLOGY ORDERABLE S Performing Organization Address City/State/[facility] Co de Phone Number [facility] [place] [address] * Hemogram (03/27/2019 12:50 AM EST) White Blood Cell 6.0 4.0 - 9.5 x10(3)/[facility] Red Blood Cell 4.73 4.00 - 5.21 x10(6)/[facility] Hemoglobin 14.0 11.7 - 15.5 gm/dL [facility] Hematocrit 40.5 35.7 - 45.8 % [facility] Mean Cell Volume 85.6 82.6 - 94.4 fL [facility] Mean Cell Hemoglobin 29.6 27.1 - 32.0 pg [facility] Mean Cell Hemoglobin Concentration 34.6 31.7 - 35.0 gm/dL [facility] Platelet 250 145 - 357 x10(3)/[facility] RDW Standard Deviation 38.3 37.0 - 46.0 fL [facility] RDW coefficient of variation 12.2 11.5 - 14.1 % [facility] Mean Platelet Volume 9.5 7.6 - 12.9 fL [facility] NRBC% auto 0.0 % [facility] NRBC Absolute 0.000 0.000 - 0.000 x10(3)/[facility] Blood specimen (specimen) 03/27/2019 12:50 AM EST 03/27/2019 1:01 AM EST Narrative Resulting Agency Comment Spec In Lab Isaac Morse MD HEMATOLOGY ORDERABLE S Performing Organization Address City/State/[facility] Co de Phone Number [facility] [place] [address] * Lipid Panel (Reflex Direct LDL) (03/27/2019 12:50 AM EST) Cholesterol, Total 186 mg/dL [facility] Comment: Lower Risk: <200 mg/dL Average Risk: 200-239 mg/dL Higher Risk: >vi=212 mg/dL Triglyceride 165 mg/dL [facility] Comment: Average Risk/Lower Risk: <150 mg/dL Borderline High Risk: 150-199 mg/dL High Risk: 200-499 mg/dL Very High Risk: >tv=447 mg/dL HDL Cholesterol 40 mg/dL [facility] Comment: Males: ?? Higher Risk: <40 mg/dL Females: ?? HIgher Risk: <50 mg/dL LDL Cholesterol 113 mg/dL [facility] Comment: Lowest Risk: <100 mg/dL Lower Risk: 100-129 mg/dL Borderline High Risk: 130-159 mg/dL High Risk: 160-189 mg/dL Very High Risk: >rp=944 mg/dL Cholesterol/HDL Ratio 4.6 ratio [facility] Lipid Interpretation See Note [facility] Comment: Lipid management should be guided by a patient? s ASCVD risk, goals and preferences. ACC/AHA Guidelines recommend high intensity statin if clinical ASCVD or LDL greater than or equal to 190 mg/dL. http://REPUCOM.com/XXL-WRD-Kmgxvnngx Adults aged 40-75 with LDL 70-189 mg/dL should have their 10 year ASCVD risk estimated with the ACC/AHA ASCVD risk behavior analyst http://tools.acc.org/FCCOO-Cgyq-Peemsbkmv/ Statin should be discussed if risk greater than or equal to 7.5% in non-diabetics. With diabetes, moderate intensity statin is recommended if risk less than 7.5%, high intensity if risk greater than or equal to 7.5%. Annual lipid monitoring on statins is not necessary. Evaluate secondary causes of Triglycerides greater than 500 mg/dL or LDL greater than 190 mg/dL: See table 6 of ACC/AHA Guideline. Lifestyle modification is a critical component of ASCVD risk reduction. Blood specimen (specimen) 03/27/2019 12:50 AM EST 03/27/2019 1:01 AM EST Narrative Resulting Agency Comment Spec In Lab Nicholas Diane MD CHEMISTRY ORDERABLES Performing Organization Address City/State/[facility] Co de Phone Number [facility] [place] [address] * (ABNORMAL) BMP w/fasting Glucose (03/27/2019 12:50 AM EST) Glucose Fasting 97 65 - 99 mg/dL [facility] Comment: ?Fasting* Glucose Interpretive Criteria Normal ?65-99 mg/dL Impaired Fasting glucose ?100-125 mg/dL Consistent with Diabetes Mellitus ? >or= 126 mg/dL *Fasting is defined as no caloric intake for at least 8 hours In the absence of unequivocal hyperglycemia a plasma glucose value of >or= 126 mg/dL should be repeated on a subsequent day. Diagnosis and Classification of Diabetes Mellitus, Position Statement from the [place] [employer]. ??Diabetes Care, Volume 33, Supplement 1, Mar 2009 Blood Urea Nitrogen 15 8 - 18 mg/dL [facility] Creatinine 0.66(L) 0.70 - 1.20 mg/dL [facility] Sodium 141 135 - 145 mmol/L [facility] Potassium 4.2 3.5 - 5.0 mmol/L [facility] Comment: Please note: ??Patients with WBC >100,000 may have falsely elevated Potassium levels. ??For accurate Potassium quantification in these patients send serum separator tube (gold top) for subsequent determinations. ??Contact the Clinical Chemistry Laboratory if there are any questions. Chloride 104 98 - 107 mmol/L [facility] Carbon Dioxide 24 22 - 31 mmol/L [facility] Anion Gap 13 5 - 15 mmol/L [facility] Calcium 9.2 8.5 - 10.5 mg/dL [facility] Est Glomerular Filtration Rate 90 >=60 mL/min/1. 73 m?? [facility] Comment: The eGFR was calculated using the CKD-EPI equation. As with all creatinine based estimates of kidney function, eGFR values calculated with the CKD-EPI equation are not accurate in patients with acute kidney failure, extremes of body mass or the acutely ill. http://[employer]/[facility] T[facility]INGOn[facility] eGFR 104 >=60 mL/min/1. 73 m?? [facility] Comment: The eGFR was calculated using the CKD-EPI equation. As with all creatinine based estimates of kidney function, eGFR values calculated with the CKD-EPI equation are not accurate in patients with acute kidney failure, extremes of body mass or the acutely ill. http://[employer]/[facility] Blood specimen (specimen) 03/27/2019 12:50 AM EST 03/27/2019 1:01 AM EST Narrative Resulting Agency Comment Spec In Lab Nicholas Diane MD CHEMISTRY ORDERABLES [facility] [place] [address] * EKG 12 Lead (03/26/2019 12:53 PM EST) Ventricular rate 61 BPM MUSE SYSTEM Atrial Rate 61 BPM MUSE SYSTEM P-R Interval 168 ms MUSE SYSTEM QRS Duration 92 ms MUSE SYSTEM Q-T Interval 448 ms MUSE SYSTEM QTC Calculated (Bezet) 450 ms MUSE SYSTEM Calculated P Davidson 55 degrees MUSE SYSTEM Calculated R Davidson -6 degrees MUSE SYSTEM Calculated T Davidson 46 degrees MUSE SYSTEM INTERPRETATION Normal sinus rhythm Nonspecific ST and T wave abnormality Abnormal ECG No previous ECGs available Confirmed by Kenji Friend MD ([id number]) on 03/26/2019 3:55:47 PM MUSE SYSTEM 03/26/2019 12:5 3 PM EST 03/26/2019 3:55 PM EST Nicholas Diane MD ECG ORDERABLES MUSE SYSTEM * Differential, Automated (03/26/2019 10:12 AM EST) Pathologist [facility] Neutrophil % 60.7 % [facility] Neutrophil Absolute 2.93 1.70 - 6.10 x10(3)/[facility] Lymph % 27.3 % [facility] Lymphocytes Abs 1.3 0.9 - 3.2 x10(3)/[facility] Monocyte % 8.5 % [facility] Monocyte Abs 0.4 0.3 - 0.9 x10(3)/[facility] Eos % 2.5 % [facility] Eosinophils Abs 0.1 0.0 - 0.4 x10(3)/[facility] Basophil % 0.6 % [facility] Baso Absolute 0.0 0.0 - 0.1 x10(3)/[facility] Immature Gran % 0.40 % [facility] Comment: Immature granulocytes(IG's)percentage and absolute count will include metamyelocytes, myelocytes, and promyelocytes. Blood smears from CBCs yielding IG's will be scanned manually for concordance. If this scan disagrees with the automated IG or if promyelocytes are noted, a manual differential will be performed. Immature Gran Absolute 0.02 0.00 - 0.04 x10(3)/[facility] Blood specimen (specimen) 03/26/2019 10:12 AM EST 03/26/2019 10:16 AM EST Narrative Resulting Agency Comment Spec In Lab Carroll CONKLIN HEMATOLOGY ORDERABLE S [facility] [place] [address] * Hemogram (03/26/2019 10:12 AM EST) White Blood Cell 4.8 4.0 - 9.5 x10(3)/[facility] Red Blood Cell 5.16 4.00 - 5.21 x10(6)/[facility] Hemoglobin 15.1 11.7 - 15.5 gm/dL [facility] Hematocrit 45.0 35.7 - 45.8 % [facility] Mean Cell Volume 87.2 82.6 - 94.4 fL [facility] Mean Cell Hemoglobin 29.3 27.1 - 32.0 pg [facility] Mean Cell Hemoglobin Concentration 33.6 31.7 - 35.0 gm/dL [facility] Platelet 253 145 - 357 x10(3)/[facility] RDW Standard Deviation 39.7 37.0 - 46.0 fL [facility] RDW coefficient of variation 12.4 11.5 - 14.1 % [facility] Mean Platelet Volume 9.4 7.6 - 12.9 fL [facility] NRBC% auto 0.0 % [facility] NRBC Absolute 0.000 0.000 - 0.000 x10(3)/[facility] Blood specimen (specimen) 03/26/2019 10:12 AM EST 03/26/2019 10:16 AM EST Narrative Resulting Agency Comment Spec In Lab Carroll CONKLIN HEMATOLOGY ORDERABLE S [facility] [place] [address] * (ABNORMAL) BMP w/fasting Glucose (03/26/2019 10:12 AM EST) Glucose Fasting 108(H) 65 - 99 mg/dL [facility] Comment: ?Fasting* Glucose Interpretive Criteria Normal ?65-99 mg/dL Impaired Fasting glucose ?100-125 mg/dL Consistent with Diabetes Mellitus ? >or= 126 mg/dL *Fasting is defined as no caloric intake for at least 8 hours In the absence of unequivocal hyperglycemia a plasma glucose value of >or= 126 mg/dL should be repeated on a subsequent day. Diagnosis and Classification of Diabetes Mellitus, Position Statement from the [place] [employer]. ??Diabetes Care, Volume 33, Supplement 1, Mar 2009 Blood Urea Nitrogen 12 8 - 18 mg/dL [facility] Creatinine 0.54(L) 0.70 - 1.20 mg/dL [facility] Sodium 140 135 - 145 mmol/L [facility] Potassium 4.1 3.5 - 5.0 mmol/L [facility] Comment: Please note: ??Patients with WBC >100,000 may have falsely elevated Potassium levels. ??For accurate Potassium quantification in these patients send serum separator tube (gold top) for subsequent determinations. ??Contact the Clinical Chemistry Laboratory if there are any questions. Chloride 104 98 - 107 mmol/L [facility] Carbon Dioxide 22 22 - 31 mmol/L [facility] Anion Gap 14 5 - 15 mmol/L [facility] Calcium 9.4 8.5 - 10.5 mg/dL [facility] Est Glomerular Filtration Rate 96 >=60 mL/min/1. 73 m?? [facility] Comment: The eGFR was calculated using the CKD-EPI equation. As with all creatinine based estimates of kidney function, eGFR values calculated with the CKD-EPI equation are not accurate in patients with acute kidney failure, extremes of body mass or the acutely ill. http://[employer]/[facility] eGFR 111 >=60 mL/min/1. 73 m?? [facility] Comment: The eGFR was calculated using the CKD-EPI equation. As with all creatinine based estimates of kidney function, eGFR values calculated with the CKD-EPI equation are not accurate in patients with acute kidney failure, extremes of body mass or the acutely ill. 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 Scanning Provider MEDIA MGR SCAN EXT O RDR/RSLT documented in this encounter Visit Diagnoses Diagnosis Screening for cardiovascular condition Screening for other and unspecified cardiovascular conditions Abnormal stress test Other nonspecific abnormal cardiovascular system function study Coronary artery disease, angina presence unspecified, unspecified vessel or lesion type, unspecified whether [place] or transplanted heart CAD (coronary artery disease) Coronary atherosclerosis of unspecified type of vessel, [place] or graft documented in this encounter Admitting Diagnoses Diagnosis CAD (coronary artery disease) Coronary atherosclerosis of unspecified type of vessel, [place] or graft documented in this encounter Administered Medications Inactive Administered Medications - up to 3 most recent administrations Medication Order MAR Action Action Date Dose Rate Site amLODIPine (Norvasc) tablet 2.5 mg 2.5 mg, Oral, ONCE, 1 dose, On Fri03/26/19 at 2045, Routine Given 03/26/2019 8:25 PM EST 2.5 mg aspirin EC tablet 81 mg 81 mg, Oral, DAILY, First dose on 03/27/19 at 0900, Until Discontinued, Routine Given 03/27/2019 8:29 AM EST 81 mg clopidogrel (Plavix) tablet 75 mg 75 mg, Oral, DAILY, First dose on 03/27/19 at 0900, Until Discontinued, Recovery (Recovery-Hospital Unit), Routine Given 03/27/2019 8:32 AM EST 75 mg lamoTRIgine (LaMICtal) tablet 50 mg 50 mg, Oral, DAILY, First dose on 03/27/19 at 0900, Until Discontinued, Routine Given 03/27/2019 8:29 AM EST 50 mg levothyroxine (Synthroid) tablet 175 mcg 175 mcg, Oral, DAILY, First dose on 03/27/19 at 0900, Until Discontinued Given 03/27/2019 8:31 AM EST 175 mcg lisinopril (Prinivil;Zestril) tablet 5 mg 5 mg, Oral, ONCE, 1 dose, On Fri03/26/19 at 2200, Routine Given 03/26/2019 9:49 PM EST 5 mg metoprolol succinate XL (Toprol-XL) tablet 25 mg 25 mg, Oral, DAILY, First dose on Fri03/26/19 at 1300, Until Discontinued, DO NOT CRUSH OR OPEN, Routine Given 03/26/2019 1:47 PM EST 25 mg sodium chloride 0.9% infusion 150 mL/hr, Intravenous, CONTINUOUS, Starting on Fri03/26/19 at 1300, Until Fri03/26/19 at 1559, Recovery (Recovery-Hospital Unit) New Bag 03/26/2019 1:00 PM EST 150 mL/hr 150 mL/hr zolpidem (Ambien) tablet 10 mg 10 mg, Oral, NIGHTLY PRN, Starting on Fri03/26/19 at 1921, Until Fri03/27/19 at 1547, Sleep, Routine Given 03/26/2019 9:56 PM EST 10 mg documented in this encounter Active and Recently Administered Medications Times are shown in EST. Scheduled Medication Order 03/25/2019 03/26/2019 03/27/2019 amLODIPine (Norvasc) tablet 2.5 mg (COMPLETED) 2.5 mg, Oral, ONCE, 1 dose, On Fri03/26/19 at 2045, Routine 202 (Given - Provider: Osito Witt RN) aspirin EC tablet 81 mg 81 mg, Oral, DAILY, First dose on Fri03/27/19 at 0900, Until Discontinued, Routine 0829 (Given - Provid er: Dariela Junior RN) clopidogrel (Plavix) tablet 75 mg 75 mg, Oral, DAILY, First dose on Fri03/27/19 at 0900, Until Discontinued, Recovery (Recovery-Hospital Unit), Routine 0832 (Given - Provid er: Dariela Junior RN) lamoTRIgine (LaMICtal) tablet 50 mg 50 mg, Oral, DAILY, First dose on Fri03/27/19 at 0900, Until Discontinued, Routine 08 (Given - Provid er: Dariela Junior RN) levothyroxine (Synthroid) tablet 175 mcg 175 mcg, Oral, DAILY, First dose on Fri03/27/19 at 0900, Until Discontinued 08 (Given - Provid er: Dariela Junior RN) lisinopril (Prinivil;Zestril) tablet 5 mg (COMPLETED) 5 mg, Oral, ONCE, 1 dose, On Fri03/26/19 at 2200, Routine 214 (Given - Provider: Osito Witt RN) metoprolol succinate XL (Toprol-XL) tablet 25 mg 25 mg, Oral, DAILY, First dose on Fri03/26/19 at 1300, Until Discontinued, DO NOT CRUSH OR OPEN, Routine 1347 (Given - Provider: Julia Jain RN) 0833 (Not Given - Provider: Dariela Junior RN - Reason: Patient/family refused) mirtazapine (Remeron) tablet 7.5 mg 7.5 mg, Oral, DAILY, First dose on 03/27/19 at 0900, Until Discontinued, Routine 0900 (Not Given - Provider: Dariela Junior RN - Reason: Patient/family refused - Comment: takes at night) Continuous Medication Order 03/25/2019 03/26/2019 03/27/2019 sodium chloride 0.9% infusion () 150 mL/hr, Intravenous, CONTINUOUS, Starting on Fri03/26/19 at 1300, Until Fri03/26/19 at 1559, Recovery (Recovery-Hospital Unit) 1300 (New Bag - Provider: Julia Jain RN)2003 (Stopped - Provider: Osito Witt RN - Comment: nothing running upon assessment) PRN Medication Order 03/25/2019 03/26/2019 03/27/2019 acetaminophen (Tylenol) tablet 650 mg 650 mg, Oral, EVERY 6 HOURS PRN, Starting on Fri03/26/19 at 1457, Until Fri03/27/19 at 1547, Pain, Mild Pain, Maximum dose of acetaminophen is 4000 mg from all sources in 24 hours., Cath (Recovery-Hospital Unit), Routine alum-mag hydroxide-simeth (Maalox) (40 mg-40 mg-4 mg/mL) oral liquid (CANCELED) ONCE PRN, Starting on Fri03/26/19 at 1147, Until Fri03/26/19 at 1452, Cath (Intra-Procedure), Routine 1147 (Given - Provider: Cheyanne Clement RN) clopidogrel (Plavix) tablet (CANCELED) ONCE PRN, Starting on Fri03/26/19 at 1132, Until Fri03/26/19 at 1452, Intra-Operative (Intra-Procedure), Routine 1132 (Given - Provider: Cheyanne Clement RN) fentaNYL 50 mcg/mL multi-dose injection (CANCELED) ONCE PRN, Starting on Fri03/26/19 at 1114, Until Fri03/26/19 at 1452, Intra-Operative (Intra-Procedure), Routine 1114 (Given - Provider: Jarvis Villatoro RN)1133 (Given - Provider: Cheyanne Clement RN)1207 (Given - Provider: Cheyanne Clement RN)1213 (Given - Provider: Santi White RN) heparin (porcine) injection (CANCELED) ONCE PRN, Starting on Fri03/26/19 at 1122, Until Fri03/26/19 at 1452, Cath (Intra-Procedure), Routine 1122 (Given - Provider: Cheyanne Clement RN)1137 (Given - Provider: Cheyanne Clement RN) iohexol (OMNIPAQUE) 350 mg/mL solution (CANCELED) ONCE PRN, Starting on Fri03/26/19 at 1224, Until Fri03/26/19 at 1452, Cath (Intra-Procedure), Routine 1224 (Given - Provider: Chai Diane MD) midazolam (PF) (VERSED) multi-dose injection (CANCELED) ONCE PRN, Starting on Fri03/26/19 at 1114, Until Fri03/26/19 at 1452, Cath (Intra-Procedure), Routine 1114 (Given - Provider: Jarvis Villatoro RN)1133 (Given - Provider: Cheyanne Clement, FILOMENA)1207 (Given - Provider: Cheyanne Clement, FILOMENA)1213 (Given - Provider: Santi White RN) niCARdipine 0.2 mg/mL (standard Adult and Pedi greater than 20 kg) infusion (CANCELED) CONTINUOUS PRN, Starting on Fri03/26/19 at 1125, Until Fri03/26/19 at 1452, Intra-Operative (Intra-Procedure), Routine 1125 (New Bag - Provider: Cheyanne Clement, FILOMENA)1228 (Stopped - Provider: Cheyanne Clement RN) nitroGLYcerin 100 mcg/mL intracoronary dilution (CANCELED) ONCE PRN, Starting on Fri03/26/19 at 1114, Until Fri03/26/19 at 1452, Cath (Intra-Procedure), Routine 1121 (Given - Provider: Isaac Morse) verapamil (ISOPTIN) injection (CANCELED) ONCE PRN, Starting on Fri03/26/19 at 1121, Until Fri03/26/19 at 1452, Administer over 2 Minutes, Cath (Intra-Procedure) 1121 (Given - Provider: Isaac Morse) zolpidem (Ambien) tablet 10 mg 10 mg, Oral, NIGHTLY PRN, Starting on Fri03/26/19 at 1921, Until Fri03/27/19 at 1547, Sleep, Routine 2156 (Given - Provider: Hortencia Witt RN) documented in this encounter Care Teams Nuclear Auxiliary Operator Relationship Specialty Start Date End Date Ag Trent MD [address] [place] [address] PCP - General 02/02/14 documented as of this encounter
--- OUTSIDE RECORDS SUMMARY | 2024-02-17 15:56 | XMS_ITS | Encounter Summary ---
Author Organization [facility] Address [address] [place] [address] Care Team Providers Care Bird Sitter Name Role Phone Latoya Quintanilla MD Primary Care Provider Unavailabl e Encounter Details Date Type Department Care Team (Late st Contact Info) Description 05/08/2012 Results Only [facility] - [facility] ([facility]) [address], [place] [address] Ag Trent MD [address] [place] [address] Social History Tobacco Use Types Packs/Day Years Used Date Smoking Tobacco: Never Assessed Comments Unknown Sex and Gender Information Value Date Recorded Sex Assigned at Not on file Legal Sex Female 18:43 EST Gender Identity Not on file Sexual Orientation Not on file documented as of this encounter Plan of Treatment Not on file documented as of this encounter Procedures Procedure Name Priority Date/Time Associated Diagnosis Comments PAP TEST- RESULT ONLY Routine 05/08/2012 0:00 EST documented in this encounter Results * PAP TEST- RESULT ONLY (05/08/2012 0:00 EST) Pathology Report: CYTOPATHOLOGY REPORT Reports generated via electronic interface contain original data; however they are lacking the format of the original report. Caution should be taken when reading/interpreti ng unformatted reports. Name: ? NARDA FRAZIER ? Accession #: ? [id number] : ? 1950 (Age: 61) ??F ?Collect Date: ? 05/08/2012 Location: ? [facility] ? Receive Date: ? 05/12/2012 Provider: ?AG TRENT MD Copy to: ? Specimen/Source: ?Pap Test, Cervix, ThinPrep Imaging System with manual evaluation Last Menstrual Period: ? DEE Other: ? Additional clinical information: no prior problems, moderate atophic change ? SPECIMEN ADEQUACY ? Satisfactory for Evaluation - assessment of transformation zone component not applicable ( e.g. atrophy, vaginal sample, hysterectomy) GENERAL CATEGORIZATION ? Negative for Intraepithelial Lesion or Malignancy ? Document reviewed and electronically signed by: ? LINDA Roberts(ASCP) ? Report Date: ??05/14/2012 10:31 End of Report [facility] 05/08/2012 05/12/2012 us Ag Trent MD PATHOLOGY ORDERABLES Final Res ult [facility] [address] [place] [address] documented in this encounter Visit Diagnoses Not on filedocumented in this encounter Care Teams Bird Sitter Relationship Specialty Start Date End Date Latoya Quintanilla MD PCP - General 03/16/10 01/19/24 documented as of this encounter
--- OUTSIDE RECORDS SUMMARY | 2024-02-17 15:56 | XMS_ITS | Encounter Summary ---
Author Organization [facility] Address [facility] [place] [address] Care Team Providers Care Model Making Supervisor Name Role Phone Ag Trent MD Primary Care Provider [phone] Encounter Details Date Type Department Care Team (Late st Contact Info) Description 01/14/2018 Telephone [place] [phone] Haley Robles APRN [address] [place] [address] [place] [address] Social History Tobacco Use Types Packs/Day Years Used Date Smoking Tobacco: Never Smokeless Tobacco: Never Alcohol Use Standard Drinks/Week Comments No 0 (1 standard drink = 0.6 oz pur e alcohol) Sex and Gender Information Value Date Recorded Sex Assigned at Not on file Gender Identity Not on file Sexual Orientation Not on file documented as of this encounter Miscellaneous Notes * Telephone Encounter - Haley Robles APRN - 01/14/2018 3:54 PM EDT Call from patient. She is currently at the [facility]. Her depression worsened and she became suicidal and wanted to cut herself. She was sent to the ER and then transferred to the [facility]. She has been off her tamoxifen for four days and there has been mild improvement in her mood. She wonders if the Tamoxifen could have aggravated her depression which is possible. She does not know when she will be home again and would like to meet with Dr Saavedra earlier thanher scheduled February appointment if it is possible. She will call the office after she returns home. documented in this encounter Plan of Treatment Not on file documented as of this encounter Visit Diagnoses Not on filedocumented in this encounter Care Teams Model Making Supervisor Relationship Specialty Start Date End Date Ag Trent MD [address] [place] [address] PCP - General 02/02/14 documented as of this encounter
--- OUTSIDE RECORDS SUMMARY | 2024-02-17 15:56 | XMS_ITS | Encounter Summary ---
Author Organization [facility] Address [address] [place] [address] Care Team Providers Care Automotive Project Engineer Name Role Phone Latoya Quintanilla MD Primary Care Provider Unavailabl e Encounter Details Date Type Department Care Team (Latest Contact Info) Description 03/03/2015 11:19 EST - 03/03/2015 23:59 EST Hospital Encounter [address] [address] Unknown, Provider, Discharge Disposition: Home or Self Care Social History Tobacco Use Types Packs/Day Years Used Date Smoking Tobacco: Never Assessed Comments Unknown Sex and Gender Information Value Date Recorded Sex Assigned at Not on file Legal Sex Female 18:43 EST Gender Identity Not on file Sexual Orientation Not on file documented as of this encounter Discharge Disposition Disposition Code Departure Means Destination Home or Self Snf documented in this encounter Plan of Treatment Not on file documented as of this encounter Visit Diagnoses Not on filedocumented in this encounter Care Teams Automotive Project Engineer Relationship Specialty Start Date End Date Latoya Quintanilla MD PCP - General 03/16/10 01/19/24 documented as of this encounter
--- OUTSIDE RECORDS SUMMARY | 2024-02-17 15:56 | XMS_ITS | Encounter Summary ---
Author Organization [facility] Address [facility] [place] [address] Care Team Providers Care Ed Transporter Name Role Phone Ag Trent MD Primary Care Provider [phone] Encounter Details Date Type Department Care Team (Late st Contact Info) Description 05/19/2020 4:15 PM EST Ancillary Procedure Radiology Library [place] [phone] Ag Trent MD [address] [place] [address] Social History Tobacco Use Types Packs/Day Years [...] Procedure Name Priority Date/Time Associated Diagnosis Comments FILM LIBRARY-STORAGE ONLY US BREAST Routine 05/19/2020 4:12 PM EST documented in this encounter Results * Film Library Storage Only US Breast (05/19/2020 4:12 PM EST) Narrative [facility]ER[facility]ARD - 05/19/2020 4:12 PM EST This exam is auto-finalizing. It's purpose is for storage only. Ag Trent MD IMG FILM LIBRARY ORD ERABLES [place], [place] documented in this encounter Visit Diagnoses Not on filedocumented in this encounter Care Teams Ed Transporter Relationship Specialty Start Date End Date Ag Trent MD [address] [place] [address] PCP - General 02/02/14 documented as of this encounter
--- OUTSIDE RECORDS SUMMARY | 2024-02-17 15:56 | XMS_ITS | Encounter Summary ---
Author Organization [facility] [place] [address] Care Team Providers Care Mid Level Developer Name Role Phone Ag Trent MD Primary Care Provider [phone] Encounter Details Date Type Department Care Team (Late st Contact Info) Description 04/28/2020 Orders Only Hematology/Oncology at [address] [phone] Kendy Su, RN Malignant neoplasm of left breast in female, estrogen receptor positive, unspecified site of breast; Encounter for screening mammogram for malignant neoplasm of breast Social History Tobacco Use Types Packs/Day Years [...] documented as of this encounter Visit Diagnoses Diagnosis Malignant neoplasm of left breast in female, estrogen receptor positive, unspecified site of breast Encounter for screening mammogram for malignant neoplasm of breast Other screening mammogram documented in this encounter Care Teams Mid Level Developer Relationship Specialty Start Date End Date Ag Trent MD [address] [place] [address] PCP - General 02/02/14 documented as of this encounter
--- OUTSIDE RECORDS SUMMARY | 2024-02-17 15:56 | XMS_ITS | Encounter Summary ---
Author Organization [facility] Address [facility] [place] [address] Care Team Providers Care Roof Tile Layer Name Role Phone Ag Trent MD Primary Care Provider [phone] Encounter Details Date Type Department Care Team (Late st Contact Info) Description 01/14/2017 3:30 PM EDT Office Visit Hematology/Oncology at [address] [phone] Kirill Saavedra MD [facility] [address] [place] [address] Personal history of breast cancer; Osteopenia, unspecified location Social History Tobacco Use Types Packs/Day Years [...] Sign Reading Time Taken Comments Blood Pressure 150/52 01/14/2017 3:47 PM EDT Pulse 57 01/14/2017 3:47 PM EDT Temperature 36.5 ??C (97.7 ??F) 01/14/2017 3:47 PM ED T Respiratory Rate 16 01/14/2017 3:47 PM EDT Oxygen Saturation 98% 01/14/2017 3:47 PM EDT Inhaled Oxygen Concentration - - Weight 83.9 kg (185 lb) 01/14/2017 3:47 PM EDT Height 161 cm (5' 3.39) 01/14/2017 3:47 PM EDT Body Mass Index 32.37 01/14/2017 3:47 PM EDT documented in this encounter Progress Notes * Kirill Saavedra MD - 01/14/2017 3:30 PM EDT Diagnosis: 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 Subjective:I feel fine HPI: Ms. Narda Rivera is 66 y.o. female Referred to us for consultation by Dr. Cohen on new diagnosis of breast cancer. She initially presenteda mass in her upper outer left breast with calcificationson a screening mammogram in December 2013.The main mass wasbiopsied showing infiltrating ductal and lobular carcinoma, ER positive, [id number]. MRI was then performed that showed the mass with multiple small satellites around it. Mrs. Rivera underwent left partial mastectomy and sentinel lymph nodebiopsy on February 23, 2014. Postoperative course was uneventful. she completed radiation on October 18. Interval history: Ms. Rivera is in clinic today for followup appointment on breast cancer. She complains of feeling down and depressed which she relates to tamoxifen. Denies any new pain. Narda is compliant with tamoxifen. Denies any bleeding PMH: Arrhythmia Left knee replacement in August 2015 Hypothyroidism on Synthroid Patient Active Problem List Diagnosis ??? Hypothyroidism ??? 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 HEENT: positive for sore throat and mouth sores. Eyes: Negative. Respiratory: Negative for cough, shortness of breath and wheezing. Cardiovascular: Negative for chest pain, palpitations and leg swelling. Gastrointestinal: positive for nausea Genitourinary: Negative for dysuria and difficulty urinating. Musculoskeletal: Joint stiffness Skin: negative Neurological: negative Hematological: Negative for adenopathy. 10 systems were reviewed and otherwise negative PE: General: AAAx3, in NAD Head: Normocephalic, without obvious abnormality, atraumatic Eyes: PERRL, conjunctiva/corneas clear, EOM's intact, fundi benign, both eyes Ears: Normal TM's and external ear canals, both ears Nose: Nares normal, septum midline, mucosa normal, no drainage or sinus tenderness Throat: No mouth sores, no tongue coating ; teeth and gums normal Neck: Supple, symmetrical, trachea midline, no adenopathy, thyroid: not enlarged, symmetric, no tenderness/mass/nodules, no carotid bruit or JVD Back: Symmetric, no curvature, ROM normal, no CVA tenderness Lungs: Clear to auscultation bilaterally, respirations unlabored Chest Wall: No palpable masses lumps in either breast. Examination was done in the presence of FILOMENA Plunkett. Heart: Regular rate and rhythm, S1, S2 normal, no murmur, rub or gallop Abdomen: Soft, non-tender, bowel sounds active all four quadrants, no masses, no organomegaly. There is no appreciable ascites Extremities: Extremities normal, atraumatic, no cyanosis or edema Pulses: 2+ and symmetric Skin: Papillary rash on low arms b/l Lymph nodes: No palpable lymph nodes in the cervical, supraclavicular, axillary or inguinal areas. Neurologic: Normal Vitals BP 150/52 (Patient Position: Sitting) Pulse 57 Temp 36.5 ??C (97.7 ??F) (Oral) Resp 16 Ht 161 cm (5' 3.39) Wt 83.9 kg (185 lb) SpO2 98% BMI 32.37 kg/m2 Karnofsky score is 90 Pathology: ---Pathologic Diagnosis--- A - Left breast, lumpectomy: 1. Invasive ductal carcinoma with lobular features (see Synoptic Report and Comment) 2. Ductal carcinoma in-situ 3. Sclerosing papillary lesions 4. Sclerosing adenosis, usual ductal hyperplasia, apocrine metaplasia, and cysts 5. Biopsy site changes B - Left axillary sentinel lymph node, excision: Two lymph nodes positive for metastatic carcinoma (2/2) C - Left non-sentinel lymph node, excision: Benign breast tissue; lymph node tissue not present Synoptic Report HISTOLOGIC TYPE: Invasive ductal carcinoma with lobular features SIZE OF INVASIVE COMPONENT: Greatest dimension: 3.5 cm HISTOLOGIC GRADE: Tubule formation: Tubule formation: Score = 3 Nuclear pleomorphism: Nuclear pleomorphism: Score = 2 Mitotic count: Mitotic count: Score = 3 Total Khalif Score: Khalif Grade III: 8-9 points DCIS: Ductal Carcinoma in Situ Present MAJOR/MINOR Component: Minor Nuclear Grade: High Cribriform Necrosis Present, focal MARGINS INVASIVE: Margins Negative Superfical Margin: 0.7 cm to margin Deep Margin: <0.1 cm to margin (A2) Caudal Margin: 0.45 cm to margin MARGINS DCIS: Margins Negative Deep Margin: 0.3 cm to margin VENOUS/LYMPHATIC (LARGE/SMALL VESSEL) INVASION (V/L): Present (extensive) SKIN: Skin is not present NIPPLE: Nipple not present. SKELETAL MUSCLE: No skeletal muscle present. LYMPH NODES (LN): LN examined: 2 LN w/ macrometastasis (>0.2 cm): 1 LN w/ micrometastasis (>0.2 mm and/or > 200 cells, but < 2.0 mm): 1 LN w/ isolated tumor cells (</equal to 0.2 mm and </equal to 200 cells): 0 Size of largest metastasis: 0.6-0.8 cm (estimate based on slide reconstruction) MICROCALCIFICATIONS: Present in nonneoplastic tissue ER/NM/HER2: ER/NM/Her2 Comment: Please see prior biopsy [id number]. HER2 FISH will be repeated on this sample. PRIMARY TUMOR (pT): pT2: Tumor more than 2.0 cm but not more than 5.0 cm in greatest dimension REGIONAL LYMPH NODES (pN): pN1a: Metastasis in 1 to 3 axillary lymph nodes TMRBLKI: A3, A4, A7 --Comment--- Multiple satellite foci of invasive carcinoma ranging in size from <0.1 cm to 0.4 cm, and which are associated with lymphovascular invasion, are present adjacent to the main 3.5 cm mass. ER immunoreactivity: Positive (11-90% cancer cells with immunostaining) Stain Intensity: Strong NM immunoreactivity: Positive (11-90% cancer cells with immunostaining) Stain Intensity: Strong NEGATIVE FOR HER2/DEL AMPLIFICATION Labs: Sodium 138, potassium 3.7, BUN 13, creatinine 0.6, total bilirubin 0.22, AST 13, ALT 17, alkaline phosphatase 88, total protein 7.0, WBC 5.33, hemoglobin 14.6, platelet count 53, ANC 3.19. Imagin05/15/16 FINDINGS: Breast density:The breasts are heterogeneously dense which may obscure small masses ?? There are no suspicious microcalcifications, masses, or areas of distortion. There are post surgical changes in the left breast. ?? CONCLUSION: No mammographic evidence of malignancy. ?? RECOMMENDATION:Routine screening 02/20/16, bone scan: Summary: No evidence of bony metastasis. 05/04/15 mammogram: FINDINGS: Breast density:The breasts are heterogeneously dense, which may obscure small masses. ?? There are no suspicious microcalcifications, masses, or areas of distortion. There are post treatment changes in the left breast. ?? CONCLUSION: No mammographic evidence of malignancy. ?? RECOMMENDATION: Routine screening. ?? BIRADS CATEGORY 2: BENIGN FINDINGS 02/02/15, DEXA scan left hip T score -1.0 indicates osteopenia. 11/16/14 mammogram CONCLUSION: This is a NEGATIVE mammogram (ACR Category 1). 03/15/14, CT scan of chest, abdomen and pelvis: No evidence of abdominal pelvic metastatic disease.No evidence of thoracic metastatic disease. 8 cm fluid collection in the left breast. This likely reflects postsurgical change. 03/15/14 echocardiogram: normal biventricular size and systolic function; estimated LVEF 65%. 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 Mrs. Rivera is compliant with tamoxifen but feels down that she relates to medication. Otherwise, she feels well... She will have OUTDOOR ADVENTURE INSTRUCTOR evaluation [facility] Will continue I'll see her back in 6 monthswas blood work. She will see Dr. Cohen in May for annual mammogram. JACINDA. Continue tamoxifen daily. I'll see her back in 6 months with blood work 2. Osteopenia: borderline, T -1.0. Calcium makes her constipated. Recommend calcium rich food. Willrepeat DEXA scan in 2 years.Will check vit D level Plan: 1. Continue Tamoxifen 20 mg daily 2. Next visit with CMP and CBC in 6 months Mrs. Rivera is by herself today. The plan was discussed with the patient in details. All questions were answered to patient's satisfaction. I would like to thank Dr. Cohen and Dr. Trent for allowing me to participate in the care of this wonderful lady documented in this encounter Plan of Treatment Not on file documented as of this encounter Procedures Procedure Name Priority Date/Time Associated Diagnosis Comments LAB SCAN 01/14/2017 12:00 AM EDT documented in this encounter Results * SCAN DOC: LAB (01/14/2017 12:00 AM EDT) Narrative 01/14/2017 12:00 AM EDT Ordered by an unspecified provider. Scanning Provider MEDIA MGR SCAN EXT O RDR/RSLT documented in this encounter Visit Diagnoses Diagnosis Personal history of breast cancer Personal history of malignant neoplasm of breast Osteopenia, unspecified location documented in this encounter Care Teams Roof Tile Layer Relationship Specialty Start Date End Date Ag Trent MD [address] [place] [address] PCP - General 02/02/14 documented as of this encounter
--- OUTSIDE RECORDS SUMMARY | 2024-02-17 15:56 | XMS_ITS | Clinical Summary ---
Author Organization [facility] Address [facility] [place] [address] Care Team Providers Care Quebracho Tanner Name Role Phone Ag Trent MD Primary Care Provider [phone] Allergies Active Allergy Reactions Criticality Noted Date Comments Warfarin 02/22/2014 Severe bleeding Medications Medication Sig Dispensed Refills Start Date End Date Status aspirin 81 mg Tablet, Delayed Release (E.C.) Take 81 mg by mouth daily. Active omeprazole (PRILOSEC) 20 mg Capsule, Delayed Release(E.C.)Indic ations:Malignant neoplasm of left female breast Take 1 capsule by mouth daily. 90 capsule 1 08/09/2014 Active Additional Information Patient taking differently:20 mg OralPRN, Reported on 03/25/2019 lactobacillus (BACID) Capsule Take 1 tablet by mouth daily. Reported on 03/12/2016 Active multivitamin Capsule Take 1 capsule by mouth daily. Active SENNOSIDES (SENNA ORAL) Take by mouth daily as needed. Reported on 03/12/2016 Active diaZEPam (VALIUM) 5 mg Tablet Take 5 mg by mouth as needed. Reported on 05/15/2016 Active LEVOTHYROXINE SODIUM (SYNTHROID ORAL) Take 175 mcg by mouth daily. Active CALCIUM CARBONATE/VITAMIN D3 (VITAMIN D-3 ORAL) Take by mouth daily. Active turmeric root extract 500 mg Capsule Take 500 mg by mouth daily. Active mirtazapine (REMERON) 15 mg Tablet Take by mouth daily. Active Acetylcysteine 600 mg Capsule Take 600 mg by mouth 2 times daily. Active lamoTRIgine (LAMICTAL) 25 mg Tablet Take 75 mg by mouth daily. Active b complex vitamins Capsule Take 1 capsule by mouth daily. Active VITAMIN C, ASCORBATE CALCIUM, ORAL Take by mouth. Active UNABLE TO FIND 2 times daily. Estrogen suppressant from senior product analyst, takes twice a day Active clopidogrel (PLAVIX) 75 mg Tablet Take 1 tablet by mouth daily. 90 tablet 3 03/27/2019 Active Additional Information Patient not taking.Reported on 04/25/2020 metoprolol succinate XL (TOPROL-XL) 25 mg Tablet Sustained Release 24 hr Take 1 tablet by mouth daily. 90 tablet 3 03/27/2019 Active atorvastatin (Lipitor) 40 mg Tablet 12/04/2019 Active hydroCHLOROthiazid e (Hydrodiuril) 25 mg Tablet 25 mg. 03/31/2020 Active Active Problems Problem Noted Date Diagnosed Date CAD (coronary artery disease) 03/26/2019 Hypothyroidism 10/13/2015 Malignant neoplasm of left female breast (BREAST CANCER) 02/10/2014 Overview (12/16/2014): Diagnosis: Left 3.5 cm IDC with lobular features, lymphovascular invasion present, SLN 2/2 positive, ER+/IA+, Her-2 unaplified, T2,at least N1a, Mx Treatment:s/p [...] completed weekly Taxol XRT 08/30/14 - 10/18/14 Resolved Problems Problem Noted Date Diagnosed Date Resolved Date Mucositis 06/02/2014 12/16/2014 Other specified prophylactic or treatment measure 03/29/2014 12/16/2014 Family History * Patient is adopted Medical History Relation Comments Breast Cancer Mother Relation Status Comments Mother Social History Tobacco Use Types Packs/Day Years Used Date Smoking Tobacco: Never Smokeless Tobacco: Never Alcohol Use Standard Drinks/Week Comments No 0 (1 standard drink = 0.6 oz pur e alcohol) Sex and Gender Information Value Date Recorded Sex Assigned at Not on file Gender Identity Not on file Sexual Orientation Not on file Last Filed Vital Signs Vital Sign Reading Time Taken Comments Blood Pressure 151/62 04/25/2020 3:16 PM EST Pulse 52 04/25/2020 3:16 PM EST Temperature 36.6 ??C (97.9 ??F) 04/25/2020 3:16 PM ES T Respiratory Rate 18 04/25/2020 3:16 PM EST Oxygen Saturation 99% 04/25/2020 3:16 PM EST Inhaled Oxygen Concentration - - Weight 86.2 kg (190 lb) 04/25/2020 3:16 PM EST Height 156.2 cm (5' 1.5) 04/25/2020 3:16 PM EST Body Mass Index 35.32 04/25/2020 3:16 PM EST Plan of Treatment Health Maintenance Due Date Last Done Comments CT Colonography 1950 Colonoscopy 1950 Colorectal Cancer Screening 1950 FIT DNA 1950 FIT 1950 Sigmoidoscopy (10 year) with FIT yearly 1950 Sigmoidoscopy 1950 Hepatitis C Screening 1966 Tetanus/Diphtheria/Pertussis Vaccines (1 - Tdap) 09/06/1967 Zoster vaccine (1 of 2) 1998 Advance Directive 09/06/2003 Bone Density Scan 2013 Pneumoccocal Vaccine: 65+ (1 of 1 - PCV) 2013 RSV Vaccine (1 - 1-dose 75+ series) 09/06/2023 Covid-19 Vaccine (1 - 2023-2 5 season) 2023 Influenza (Flu) vaccine (1 o f 1 - Influenza standard series) 11/30/2023 Breast Cancer screening Discontinued 05/14/19 19, 05/28/2017, 05/15/2016, Additional history exists Procedures Procedure Name Priority Date/Time Associated Diagnosis Comments MAMMO SCREENING CAD AND NATHEN BILATERAL Routine 05/14/2018 12:59 PM EST Malignant neoplasm of left breast in female, estrogen receptor positive, unspecified site of breast from Last 3 Months or Most Recently Relevant to Health Maintenance Results * Mammo Screening Cad and Nathen Bilateral (05/14/2018 12:59 PM EST) Anatomical Region Laterality Modality Breast Bilateral Mammography Narrative 05/14/2018 3:01 PM EST REASON FOR EXAM: Screening. History of breast cancer. TECHNIQUE: CC and MLO views were obtained of the bilateral breast(s). Computer aided detection was used. 3D tomosynthesis images were obtained in addition to 2D images. Comparison:Compared with prior images. FINDINGS: Breast density:The breasts are heterogeneously dense which may obscure small masses There are no suspicious microcalcifications, masses, or areas of distortion. There are post surgical changes in the left breast. CONCLUSION: No mammographic evidence of malignancy. RECOMMENDATION:Routine screening. A result letter has been sent to this patient by the [facility]. BIRADS CATEGORY 2: BENIGN FINDINGS [employer] [place] [employer] and The Society of Breast Imaging recommend annual screening beginning at age 40 for the general female population. Screening should continue as long as a woman is in good health and is expected to live 10 more years or longer. All women should be familiar with the known benefits, limitations, and potential harms linked to breast cancer screening. They also should know how their breasts normally look and feel and report any breast changes to a health care provider right away. Some women, because of their family history, a genetic tendency, or certain other factors, should be screened with MRIs along with mammograms. (The number of women who fall into this category is very small.) The patient and health care provider should discuss the patient history and decide if earlier screening and breast MRI are appropriate. Ibrahima Cohen MD IMG MAMMO ORDERABLES from Last 3 Months or Most Recently Relevant to Health Maintenance Advance Directives * Full Code (Latest Code Status on File) Date Activated Date Inactivated Comments 03/26/2019 12:35 PM 03/27/2019 3:47 PM Question Answer Comments Does patient have capacity to make decision: Yes * Full Code Date Activated Date Inactivated Comments 03/26/2019 10:34 AM 03/26/2019 12:35 PM Question Answer Comments Does patient have capacity to make decision: Yes * Full Code Date Activated Date Inactivated Comments 02/22/2014 10:34 AM 02/22/2014 8:00 PM Care Teams Quebracho Tanner Relationship Specialty Start Date End Date Ag Trent MD [address] [place] [id number] PCP - General 02/02/14
--- OUTSIDE RECORDS SUMMARY | 2024-02-17 15:56 | XMS_ITS | Encounter Summary ---
Author Organization [facility] Address [address] [place] [address] Care Team Providers Care Manager Investigations Name Role Phone Latoya Quintanilla MD Primary Care Provider Unavailabl e Encounter Details Date Type Department Care Team (Late st Contact Info) Description 02/27/2016 Results Only [facility] [phone] Melvi Nunez MD [address] [place] [address] [place] [address] Social History Tobacco Use Types Packs/Day Years [...] Diagnosis Comments PAP TEST- RESULT ONLY Routine 02/27/2016 0:00 EST documented in this encounter Results * PAP TEST- RESULT ONLY (02/27/2016 0:00 EST) Pathology Report: CYTOPATHOLOGY REPORT Reports generated via electronic interface contain original data; however they are lacking the format of the original report. Caution should be taken when reading/interpreti ng unformatted reports. Name: ? NARDA FRAZIER ? Accession #: ? [id number] ? : ? 1950 (Age: 65) ??F ?Collect Date: ? 02/27/2016 ? Location: ? [facility] ? Receive Date: ? 02/28/2016 ? Provider: MELVI NUNEZ MD Copy to: ADRIAN FOX MD ? Final Report SPECIMEN ADEQUACY ? Satisfactory for Evaluation - transformation zone component present GENERAL CATEGORIZATION ? Negative for Intraepithelial Lesion or Malignancy ?? Last Menstrual Period: age 50 Specimen/Source: ??Pap Test, Cervix, ThinPrep Imaging System with manual evaluation Document reviewed and electronically signed by: ? Lluvia Bonner, CT(ASCP) ? Report ??Date: 03/04/2016 12:17 HPV with Pap Test ? Date Ordered: ? 03/04/2016 ? Status: ?? Signed Out ?Date Complete: ? 03/05/2016 ? By: ??System Interface ? Date Reported: ? 03/05/2016 ? Interpretation RESULT: Negative for HPV. No E6 or E7 mRNA is detected from HPV types 16,18,31,33,35, 39,45,51,52,56,58, 59,66, and 68 by room service food service attendant mediated amplification. Comments Document reviewed and electronically signed by: ? System Interface ? Report date: 03/05/2016 By the signature above, the attending physician certifies that he/she has personally conducted a gross and/or microscopic examination of the described specimens and rendered or confirmed the above diagnosis. End of Report [facility] 02/27/2016 02/28/2016 us Melvi Nunez MD PATHOLOGY ORDERABLES Final Resu lt [facility] [address] [place] [id number] documented in this encounter Visit Diagnoses Not on filedocumented in this encounter Care Teams Manager Investigations Relationship Specialty Start Date End Date Latoya Quintanilla MD PCP - General 03/16/10 01/19/24 documented as of this encounter
--- OUTSIDE RECORDS SUMMARY | 2024-02-17 15:56 | XMS_ITS | Encounter Summary ---
Author Organization [facility] Address [facility]a [facility] [place] [address] Care Team Providers Care Practical Nursing Faculty Name Role Phone Ag Trent MD Primary Care Provider [phone] Encounter Details Date Type Department Care Team (Late st Contact Info) Description 06/02/2019 Telephone Cardiology at [address] [phone] Steven Eaton MD [facility] [place] [address] Social History Tobacco Use Types Packs/Day Years [...] encounter Miscellaneous Notes * Telephone Encounter - Steven Eaton MD - 06/02/2019 9:33 PM EST Telephone Triage Note Initial Contact Date: 06/02/2019 Initial Contact Time: 933 Referring Provider: KATERIN Grady Patient Location: [facility] Presenting Symptoms per OSH: 68 yo F with hx of CAD s/p PCI to prox LAD and prox OM1 in 02/2019 following a positive stress test. Initially contacted by [facility] for telephone consultation but it was cancelled. I never spoke to the provider at [facility]. documented in this encounter Plan of Treatment Not on file documented as of this encounter Visit Diagnoses Not on filedocumented in this encounter Care Teams Practical Nursing Faculty Relationship Specialty Start Date End Date Ag Trent MD [address] [place] [address] PCP - General 02/02/14 documented as of this encounter
--- OUTSIDE RECORDS SUMMARY | 2024-02-17 15:56 | XMS_ITS | Encounter Summary ---
Author Organization [facility] Address [facility] [place] [address] Care Team Providers Care Tool Die Maker Name Role Phone Ag Trent MD Primary Care Provider [phone] Encounter Details Date Type Department Care Team (Late st Contact Info) Description 08/12/2017 2:00 PM EDT Office Visit Hematology/Oncology at [address] [phone] Kirill Saavedra MD [facility] [address] HEMATOLOGY [place] [address] Personal history of breast cancer; Osteopenia, unspecified [...] Sign Reading Time Taken Comments Blood Pressure 152/56 08/12/2017 2:37 PM EDT Pulse 59 08/12/2017 2:37 PM EDT Temperature 37.1 ??C (98.8 ??F) 08/12/2017 2:37 PM ED T Respiratory Rate 16 08/12/2017 2:37 PM EDT Oxygen Saturation 98% 08/12/2017 2:37 PM EDT Inhaled Oxygen Concentration - - Weight 84.8 kg (187 lb) 08/12/2017 2:37 PM EDT Height 161 cm (5' 3.39) 08/12/2017 2:37 PM EDT Body Mass Index 32.72 08/12/2017 2:37 PM EDT documented in this encounter Progress Notes * Kirill Saavedra MD - 08/12/2017 2:00 PM EDT Diagnosis: Left 3.5 cm IDC with lobular features, lymphovascular invasion present, SLN 2/2 positive, ER+/AL+, Her-2 unaplified. Subjective:I feel fine HPI: Ms. Narda Rivera is 66 y.o. female Referred to us for consultation by Dr. Cohen on new diagnosis of breast cancer. She initially presenteda mass in her upper outer left breast with calcificationson a screening mammogram in December 2013.The main mass wasbiopsied showing infiltrating ductal and lobular carcinoma, ER positive, [id number]. MRI was then performed that showed the mass with multiple small satellites around it. Mrs. Rivera underwent left partial mastectomy and sentinel lymph nodebiopsy on February 23, 2014. Postoperative course was uneventful. she completed radiation on October 18. Interval history: Ms. Rivera is in clinic today for followup appointment on breast cancer. Overall Ms. Harrell feels well. Denies any new pain. Narda is compliant with tamoxifen. She complains on thinning of her hairs. Denies any bleeding PMH: No interval changes since last visit. Arrhythmia Left knee replacement in August 2015 Hypothyroidism on Synthroid Patient Active Problem List Diagnosis ??? Hypothyroidism ??? Malignant neoplasm of left female breast (BREAST CANCER) Diagnosis: Left 3.5 cm IDC with lobular features, lymphovascular invasion present, SLN 2/2 positive, ER+/AL+, Her-2 unaplified, T2,at least N1a, Mx Treatment:s/p [...] or inguinal areas. Neurologic: Normal Vitals BP 152/56 (Patient Position: Sitting) Pulse 59 Temp 37.1 ??C (98.8 ??F) (Oral) Resp 16 Ht 161 cm (5' 3.39) Wt 84.8 kg (187 lb) SpO2 98% BMI 32.72 kg/m2 Karnofsky score is 90 Pathology: ---Pathologic [...] count: Score = 3 Total Khalif Score: Iron Belt Grade III: 8-9 points DCIS: Ductal Carcinoma [...] slide reconstruction) MICROCALCIFICATIONS: Present in nonneoplastic tissue ER/AL/HER2: ER/AL/Her2 Comment: Please see prior biopsy [id number]. HER2 FISH will be repeated on this [...] cancer cells with immunostaining) Stain Intensity: Strong AL immunoreactivity: Positive (11-90% cancer cells with immunostaining) Stain Intensity: Strong NEGATIVE FOR HER2/DEL AMPLIFICATION Labs: BUN 15, creatinine 0.61, total bilirubin 0.2, calcium 8.7, AST 17, ALT 20, alkaline phosphatase 72, albumin 6.9, WBC 4.87, hemoglobin 14.8, platelet count 220.. Imagin05/28/17 mammogram: CONCLUSION: No mammographic evidence of malignancy. ?? 05/15/16 FINDINGS: Breast density:The breasts are heterogeneously dense [...] features, lymphovascular invasion present, SLN 2/2 positive, ER+/AL+, Her-2 unaplified, T2,at least N1a, Mx Treatment:s/p [...] - January, started Tamoxifen 20 mg daily. JACINDA. Continue tamoxifen daily. I'll see her back in 6 months with blood work We discussed the data 5-year-old hormonal therapy versus 10 year treatment. is demonstrated improvement in overall survival especially in patients with more advanced disease. All questions were answered to patient's satisfaction. We will plan for 10 years of tamoxifen treatment 2. Osteopenia: borderline, T -1.0. Plan: 1. Continue Tamoxifen 20 mg daily [...] Priority Date/Time Associated Diagnosis Comments LAB SCAN 08/12/2017 12:00 AM EDT documented in this encounter Results * SCAN DOC: LAB (08/12/2017 12:00 AM EDT) Narrative 08/12/2017 12:00 AM EDT Ordered by an unspecified provider. Scanning Provider MEDIA MGR SCAN EXT O RDR/RSLT documented in this encounter Visit Diagnoses Diagnosis Personal history of breast cancer Personal history of malignant neoplasm of breast Osteopenia, unspecified location documented in this encounter Care Teams Tool Die Maker Relationship Specialty Start Date End Date Ag Trent MD [address] [place] [address] PCP - General 02/02/14 documented as of this encounter
--- OUTSIDE RECORDS SUMMARY | 2024-02-17 15:56 | XMS_ITS | Encounter Summary ---
Author Organization [facility] Address [facility] [place] [address] Care Team Providers Care Can Vacuum Tester Name Role Phone Ag Trent MD Primary Care Provider [phone] Encounter Details Date Type Department Care Team (Late st Contact Info) Description 03/16/2019 Ancillary Procedure Radiology Library [place] [facility] [place] [address] Ag Trent MD [address] [place] [address] Social History Tobacco Use Types [...] Name Priority Date/Time Associated Diagnosis Comments FILM LIBRARY STORAGE ONLY NM PET/CT Routine 03/16/2019 12:00 AM EST documented in this encounter Results * Film Library- Storage Only NM Pet / CT (03/16/2019 12:00 AM EST) Narrative GERHARD - 03/17/2019 11:49 AM EST This exam is auto-finalizing. It's purpose is for storage only. Ag Trent MD IMG FILM LIBRARY ORD ERABLES GERHARD [place] documented in this encounter Visit Diagnoses Not on filedocumented in this encounter Care Teams Can Vacuum Tester Relationship Specialty Start Date End Date Ag Trent MD [address] [place] [address] PCP - General 02/02/14 documented as of this encounter
--- OUTSIDE RECORDS SUMMARY | 2024-02-17 15:56 | XMS_ITS | Encounter Summary ---
Author Organization [facility] [place] [address] Care Team Providers Care Straw Boss Name Role Phone Ag Trent MD Primary Care Provider [phone] Encounter Details Date Type Department Care Team (Late st Contact Info) Description 02/15/2021 Telephone Hematology/Oncology at [address] [phone] Monika Stephenson Social History Tobacco Use Types Packs/Day Years [...] encounter Miscellaneous Notes * Telephone Encounter - Monika Stephenson - 02/15/2021 12:02 PM EST Call received from Narda requesting to cancel her up coming appt with Dr. Saavedra. Narda would like to follow with her PCP going forward. documented in this encounter Plan of Treatment Not on file documented as of this encounter Visit Diagnoses Not on filedocumented in this encounter Care Teams Straw Boss Relationship Specialty Start Date End Date Ag Trent MD [address] [place] [address] PCP - General 02/02/14 documented as of this encounter
--- OUTSIDE RECORDS SUMMARY | 2024-02-17 15:56 | XMS_ITS | Encounter Summary ---
Author Organization [facility] Address [facility] [place] [address] Care Team Providers Care Gamemaster Name Role Phone Ag Trent MD Primary Care Provider [phone] Encounter Details Date Type Department Care Team (Late st Contact Info) Description 05/24/2020 Telephone Hematology [place] [phone] Oxana Waite Social History Tobacco Use Types Packs/Day Years [...] encounter Miscellaneous Notes * Telephone Encounter - Oxana Waite - 05/24/2020 11:11 AM EST Patient Info: Narda Rivera 1950 Attn: Pathology Department From: [facility] [phone] [x]Urgent [] For Review [] Please Reply []Please Recycle Comments: Please overnight all Pathology slides to include Core Biopsy's and Surgical Path. Mail to: Department of Pathology, [facility], Attn: [place] [address] Fed-Ex # [id number] If questions please call [phone] Notice of Confidentiality: The documents accompanying this FAX transmission cover contain information from [facility] that is confidential and privileged. The information is intended for the use of the individual or entity named on this transmittal sheet. If you are not the intended recipient, be aware that any disclosure, copying, distribution or use of the contents is prohibited. If you have received the FAX in error, please notify us by telephone (collect) immediately to permit us to arrange for the retrieval of the documents at no cost to you documented in this encounter Plan of Treatment Not on file documented as of this encounter Visit Diagnoses Not on filedocumented in this encounter Care Teams Gamemaster Relationship Specialty Start Date End Date Ag Trent MD [address] [place] [address] PCP - General 02/02/14 documented as of this encounter
--- OUTSIDE RECORDS SUMMARY | 2024-02-17 15:56 | XMS_ITS | Encounter Summary ---
Author Organization [facility] Address [facility] [place] [address] Care Team Providers Care Supervisor Photocomposition Name Role Phone Ag Trent MD Primary Care Provider [phone] Encounter Details Date Type Department Care Team (Late st Contact Info) Description 05/19/2020 4:20 PM EST Ancillary Procedure Radiology Library at [facility] [phone] Ag Trent MD [address] [place] [address] Social History Tobacco Use Types [...] Associated Diagnosis Comments FILM LIBRARY STORAGE ONLY MAMMO Routine 05/19/2020 4:13 PM EST documented in this encounter Results * Film Library- Storage Only Mammo (05/19/2020 4:13 PM EST) Narrative GERHARD - 05/19/2020 4:13 PM EST This exam is auto-finalizing. It's purpose is for storage only. Ag Trent MD IMG FILM LIBRARY ORD ERABLES [place], [place] documented in this encounter Visit Diagnoses Not on filedocumented in this encounter Care Teams Supervisor Photocomposition Relationship Specialty Start Date End Date Ag Trent MD [address] [place] [address] PCP - General 02/02/14 documented as of this encounter
--- OUTSIDE RECORDS SUMMARY | 2024-02-17 15:56 | XMS_ITS | Encounter Summary ---
Author Organization [facility] [place] [address] Care Team Providers Care Territory Representative Name Role Phone Ag Trent MD Primary Care Provider [phone] Reason for Visit * Reason Comments Radiation Follow-up breast cancer Encounter Details Date Type Department Care Team (Late st Contact Info) Description 12/30/2018 1:00 PM EDT Office Visit Radiation Oncology at [address] [phone] Haley Robles, [address] RADIATION ONCOLOGY [place], [place] [id number] Breast cancer, stage 2, left Social History Tobacco Use Types Packs/Day Years [...] Sign Reading Time Taken Comments Blood Pressure 155/60 12/30/2018 1:19 PM EDT Pulse 67 12/30/2018 1:06 PM EDT Temperature 37.1 ??C (98.8 ??F) 12/30/2018 1:06 PM ED T Respiratory Rate 18 12/30/2018 1:06 PM EDT Oxygen Saturation 97% 12/30/2018 1:06 PM EDT Inhaled Oxygen Concentration - - Weight 87.5 kg (193 lb) 12/30/2018 1:06 PM EDT Height 160 cm (5' 3) 12/30/2018 1:06 PM EDT Body Mass Index 34.19 12/30/2018 1:06 PM EDT documented in this encounter Progress Notes * Haley Robles, CRAYON SAWYER - 12/30/2018 1:00 PM EDT Images from the original note were not included. Patient ID: Narda Rivera is a 68 y.o. female.breast ca, L, IDC w/lobular features, high gr, ER+IL+, [id number]-, s/p lumpectomy & SNB, pT2 pN1a, stage II, +extensive LVI. S/p adjuvant chemo and radiation therapy. She was treated with 60.4 Gy which was completed on 10/18/2014. She stopped hormone therapy about one year ago due to SE of severe depression. She is in clinic for scheduled followup. HPI 63 y/o f who underwent a screening mmg in 01/11, w/[facility] interp: L breast lesion 1, SUSPICIOUS, 14 mm mass @ 0100. L breast lesion 2, SUSPICIOUS, 3.8 mm mass @ 0100, 12 mm from lesion 1. R breast neg. ?? 02/02/14 US guided core needle bxs L breast mass @ 0100. ?? Path: Invasive mammary ca w/ductal & lobular features. LVI present. ER+IL+. Ftc1nud IHC neg. ?? 02/08/14 B breast MRI: L breast lesion 1, KNOWN MALIGNANCY, 40 x 20 x 33 mm mass @ 1200. R breast BENIGN. Ax nodes visualization adequate B. Benign appearing ax nodes B. NOTE: Satellite lesion (5 mm), 8 mm inf-lateral to main mass, not bx'd as can be excised @ time of excision of main mass, 2nd NLOC can be used if necessary. ?? 02/10/[address] Cohen, w/exam showing no palpable breast mass/adenopathy. ?? 02/22/14 L breast lumpectomy w/1 cm of breast tissue left on chest wall underneath dissxn. Specimenmmg showed suspicious area. SNB through lumpectomy incision. ?? Path: IDC w/lobular features; 3.5 cm; high gr; +DCIS (minor); RM neg; closest RM to DCIS = 0.3 cm; extensive LVI; 2 ax sentinel lymph nodes, both + for met ca, 1 w/macromet & 1 w/micromet, largest met = 0.6 - 0.8 cm; pT2 pN1a. [id number] FISH neg. Comment: Multiple satellite foci of invasive ca ranging in size from < 0.1 cm to 0.4 cm, & which are assoc'd w/LVI, are present adjacent to themain 3.5 cm mass. ?? 03/02/14 Comprehensive Breast Program Tumor Bd Note w/rec for consider systemic staging, consider enrollment on B47, D1230, S1007 or D1207; rec breast conserving xrt to include supraclav nodes. ? 03/08/[address] Saavedra, w/rec for staging CT c/a/p & then ddACx4/weeklyTx4 followed by xrt & then hormonal tx. ?? 03/10/14 fu w/Dr. Cohen, w/rec for chemo followed by xrt & then anti-hormone tx; rtc 7 mos w/L mmg. ?? 03/15/14 CT c/a/p: 8 cm fluid collection in L breast, likely postsurgical change. No thoracic/abdominal/pelvic met dz. ?? Chemotherapy detail: [facility] ([facility]) 03/29/2014 03/30/2014 Day, Cycle Day 1, Cycle 1 Day 2, Cycle 1 cyclophosphamide (CYTOXAN) IV 600 mg/m2/dose = 1,182 mg DOXOrubicin (ADRIAMYCIN) IV 60 mg/m2/dose = 118.2 mg PACLitaxel (TAXOL) IV pegfilgrastim (NEULASTA) SubQ 6 mg [facility] ([facility]) 04/12/2014 04/13/2014 Day, Cycle Day 1, Cycle 2 Day 2, Cycle 2 cyclophosphamide (CYTOXAN) IV 600 mg/m2/dose = 1,182 mg DOXOrubicin (ADRIAMYCIN) IV 60 mg/m2/dose = 118.2 mg PACLitaxel (TAXOL) IV pegfilgrastim (NEULASTA) SubQ 6 mg [facility] ONCOLOG[facility] ([facility]) 04/25/2014 04/27/2014 Day, Cycle Day 1, Cycle 3 Day 2, Cycle 3 cyclophosphamide (CYTOXAN) IV 600 mg/m2/dose = 1,182 mg DOXOrubicin (ADRIAMYCIN) IV 60 mg/m2/dose = 118.2 mg PACLitaxel (TAXOL) IV pegfilgrastim (NEULASTA) [facility] 05/10/2014 05/11/2014 Day, Cycle Day 1, Cycle 4 Day 2, Cycle 4 cyclophosphamide (CYTOXAN) IV 600 mg/m2/dose = 1,182 mg DOXOrubicin (ADRIAMYCIN) IV 60 mg/m2/dose = 118.2 mg PACLitaxel (TAXOL) IV pegfilgrastim (NEULASTA) SubQ 6 mg [facility] ([facility]) 05/24/2014 05/31/2014 Day, Cycle Day 1, Cycle 1 Day 8, Cycle 1 cyclophosphamide (CYTOXAN) IV DOXOrubicin (ADRIAMYCIN) IV PACLitaxel (TAXOL) IV 80 mg/m2/dose = 154 mg 80 mg/m2/dose = 154 mg pegfilgrastim (NEULASTA) SubQ [facility] ([facility]) 06/07/2014 06/14/2014 Day, Cycle Day 15, Cycle 1 Day 1, Cycle 2 cyclophosphamide (CYTOXAN) IV DOXOrubicin (ADRIAMYCIN) IV PACLitaxel (TAXOL) IV 80 mg/m2/dose = 154 mg 80 mg/m2/dose = 154 mg [facility]astim (NEULASTA[facility] 06/21/2014 06/28/2014 Day, Cycle Day 8, Cycle 2 Day 15, Cycle 2 cyclophosphamide (CYTOXAN) IV DOXOrubicin (ADRIAMYCIN) IV PACLitaxel (TAXOL) IV 80 mg/m2/dose = 154 mg 80 mg/m2/dose = 154 mg pegfilgrastim (NEULASTA) [facility] ([facility]) 07/05/2014 07/12/2014 Day, Cycle Day 1, Cycle 3 Day 8, Cycle 3 cyclophosphamide (CYTOXAN) IV DOXOrubicin (ADRIAMYCIN) IV PACLitaxel (TAXOL) IV 80 mg/m2/dose = 154 mg 80 mg/m2/dose = 154 mg pegfilgrastim (NEULASTA) [facility] ([facility]) 07/19/2014 07/26/2014 Day, Cycle Day 15, Cycle 3 Day 1, Cycle 4 cyclophosphamide (CYTOXAN) IV DOXOrubicin (ADRIAMYCIN) IV PACLitaxel (TAXOL) IV 80 mg/m2/dose = 154 mg 80 mg/m2/dose = 154 mg pegfilgrastim (NEULASTA) [facility] ([facility]) 08/02/2014 08/09/2014 Day, Cycle Day 8, Cycle 4 Day 15, Cycle 4 cyclophosphamide (CYTOXAN) IV DOXOrubicin (ADRIAMYCIN) IV PACLitaxel (TAXOL) IV 80 mg/m2/dose = 154 mg 80 mg/m2/dose = 154 mg pegfilgrastim (NEULASTA) SubQ Radiation therapy detail: ANTICIPATED TOTAL DOSE: 50.4 Gy L supraclav, L axilla & L breast; 60.4 Gy lumpectomy bed L breast ?? Current # of xrt received: 28 L supraclav, L axilla & L breast; 33 lumpectomy bed L breast ?? Anticipated total # of xrt txs: 28 L supraclav, L axilla & L breast; 33 lumpectomy bed L breast 06/2014 switched from Arimidex to Femara 01/2016--switched to tamoxifen due to increased arthralgias 12/2017-- stopped tamoxifen due to SE of severe depression with suicidal ideation Treatment summary completed and reviewed with patient and copy sent PCP Chemotherapy and Supportive Care Treatment History BREAST CANCER NOTES 09/07/2015 Method of Cancer Detection abnormal mammogram of the left breast 12/2013 Menopausal Status at Diagnosis post-menopausal Date of Diagnostic Biopsy 02/02/2014 Local Surgery Lumpectomy done by Dr Cohen at [facility] [place] nodes alone--2+ of 2 sentinel nodes removed. One with macromet ant onewith micromet Date of Last Surgical Procedure 02/22/2014 Histology Invasive ductal carcinoma with minor ductal carcinoma in situ . + for lymphovascular invasion (LVI) CT of chest, abdomen and pelvis 03/15/2014--negative for metastasis Tumor Staging from Staging System [id number] T2= tumor that measures between 2 and 5 cm in size N1= one to three lymph nodes positive M0= no distant spread Stage 2--good prognosis with treatment Size of Primary Malignancy 3.5 cm with multiple small satellite lesions Grade High grade Margin negative ER--estrogen receptor positive IL--progesterone receptor positive HER-2/FISH negative Adjuvant Chemotherapy Start Date 03/29/2014 Adjuvant Chemotherapy Regimen Dose dense adriamycin (also called doxorubicin) and cytoxan (AC) for four cycles - paclitaxel (taxol) for 12 cycles Adjuvant Chemotherapy-date completed 08/09/2014 Radiation therapy Treatment dates: 08/30/2014 to 10/18/2014 Total dose of 60.4 Gy which included a boost to the surgical bed. SCV nodes were also treated ECHO 03/15/2014---64% (normal) First Adjuvant Endocrine Therapy Anastrazole after radiation and June 2014 switched to Femara 01/2016 switched to tamoxifen Stopped tamoxifen about December 2017 due to severe depression requiring hospitalization DEXA (bone density test) 01/2015--DEXA T score of -1.0 Surveillance mammogram 05/04/2015--benign 05/15/2016- mammogram--no evidence of malignancy 05/28/2017- Mammogram--no evidence of malignancy 05/14/2018- Mammogram--No mammographic evidence of malignancy 2. Osteopenia: borderline, T -1.0. Calcium makes her constipated. Recommend calcium rich food. Willrepeat DEXA scan in 2 years (01/2017). vit D level normal- 60 today (range 18-78) Patient Active Problem List Diagnosis Code ??? Malignant neoplasm of left female breast (BREAST CANCER) C50.912 ??? Hypothyroidism E03.9 Past Surgical History: Procedure Laterality Date ??? BREAST BIOPSY Left 01/2014 invasive mammary cancer. ??? BREAST LUMPECTOMY Left 02/22/2014 rt ??? PRO BX/REMV, LYMPH NODE, DEEP AXILL Left 02/22/2014 BIOPSY OR EXCISION OF LYMPH NODE(S), OPEN, DEEP AXILLARY NODE(S) performed by Ibrahima Cohen MD at [facility] MAIN OR ??? PRO IDENTIFY SENTINEL NODE Left 02/22/2014 SENTINEL NODE INJECTION performed by Ibrahima Cohen MD at [facility] MAIN OR ??? PRO MASTECTOMY, PARTIAL Left 02/22/2014 MASTECTOMY PARTIAL performed by Ibrahima Cohen MD at [facility] MAIN OR Allergies Allergen Reactions ??? Coumadin [Warfarin] Severe bleeding Medications 12/30/18 1632 Medication Sig Taking? lamoTRIgine (LAMICTAL) 25 mg Tablet Take 50 mg by mouth daily. Yes mirtazapine (REMERON) 15 mg Tablet Take 15 mg by mouth daily. Yes Acetylcysteine 600 mg Capsule Take 600 mg by mouth 2 times daily. Yes pravastatin (PRAVACHOL) 20 mg Tablet Take 20 mg by mouth daily. Yes turmeric root extract 500 mg Capsule Take 500 mg by mouth daily. Yes CALCIUM CARBONATE/VITAMIN D3 (VITAMIN D-3 ORAL) Take by mouth daily. Yes LEVOTHYROXINE SODIUM (SYNTHROID ORAL) Take 200 mcg by mouth daily. Yes diaZEPam (VALIUM) 5 mg Tablet Take 5 mg by mouth as needed. Reported on 05/15/2016 Yes SENNOSIDES (SENNA ORAL) Take by mouth daily as needed. Reported on 03/12/2016 Yes lactobacillus (BACID) Capsule Take 1 tablet by mouth daily. Reported on 03/12/2016 Yes multivitamin Capsule Take 1 capsule by mouth daily. Yes omeprazole (PRILOSEC) 20 mg Capsule, Delayed Release(E.C.) Take 1 capsule by mouth daily. Yes polyethylene glycol (MIRALAX) 17 gram Powder in Packet Take 17 g by mouth 3 times daily as needed. Yes aspirin 81 mg Tablet, Delayed Release (E.C.) Take 81 mg by mouth daily. Yes Social History Socioeconomic History ??? Marital status: [...] file Gets together: Not on file Attends jewish service: Not on file Active member of [...] Social History Narrative ??? Not on file Updated social history today. Living Situation/Daily Activities/Transportation: Pt has a live in boarder who is a nurse currently. This is a temporary arrangement. She manages her daily chores and activities. She does drive. ??Work/Finances/Insurance: Pt is retired. She is able to manage her financial obligations. She has Medicare and a secondary insurance. Advance Directives: pt has completed her advance directive. Per her requested obtained a copy from [facility]. Pt reviewed the document and indicated she wants to make changes. She was previously given a new [place] advance directive booklet/form by [employer] and patient is to review and complete. Utilization of Community Resources: Pt receives her primary care at the [facility]. Adjustment to Illness/Mental Health Issues: Patient was hospitalized at [facility] last December for severe depression with SI. She was started on meds and Tamoxifen was discontinued. She sees a team psychologist once a month and feels that she is doing generally well at this time. ? Interim History: See social history above Ms Rivera reports that she is generally doing better at this time. Her mood has improved with being off GRAHAM now for nearly a year and with antidepressants. She is not happy with the weight gain associated with her medication and will discuss with her provider. A nutrition consult was discussed with patient but she did not feel that she wanted to this at this time. She reports no issues with her breast. She has occ mild tenderness. She has no masses, no nipple discharge, no ROM restriction with her left shoulder, no lymphedema. Time from completion of treatment 4 years 3 months Problems at primary site (breast) none Metastatic symptoms: none Pain none Breast tenderness Sl tenderness with pressure only Skin changes breast none Lymphedema none Persistent cough none Persistent headaches Few mild headache ROM restriction None Functional status Independent with ADL and IADL Smoking none Activity/exercise Treadmill ten minutes every day Hormone therapy side effects No vaginal bleeding, + arthritis ankle [facility] Se[facility] psych CRAYON SAWYER once a month at [facility] resource Review of Systems Constitutional: Negative. Negative for activity change, appetite change, chills, diaphoresis, fatigue, fever and unexpected weight change. HENT: Negative. Respiratory: Negative. Negative for cough, chest tightness and shortness of breath. Cardiovascular: Negative. Negative for chest pain, palpitations and leg swelling. Ankle edema--not new Gastrointestinal: Negative. Negative for abdominal distention, abdominal pain and constipation. Genitourinary: Negative. Negative for vaginal bleeding and vaginal discharge. Musculoskeletal: Positive for arthralgias. Negative for back pain. Skin: Negative. Neurological: Negative. Negative for dizziness, weakness, light-headedness and headaches. Hematological: Negative. Does not bruise/bleed easily. Psychiatric/Behavioral: Positive for sleep disturbance. Negative for dysphoric mood. The patient isnot nervous/anxious. Smokes marijuanna to help with sleep x 30 years Vitals Office Visit from 12/30/2018 in Radiation Oncology at [facility] Weight 87.5 kg (193 lb) Height 160 cm (5' 3) BSA (Calculated - sq m) 1.97 sq meters BMI (Calculated) 34.18 Temp 37.1 ??C (98.8 ??F) Temp src Oral Heart Rate 67 Heart Rate Source NIBP Resp 18 BP 155/60 BP Location Right arm Patient Position Sitting SpO2 97 % KPS: 100 Objective: Physical Exam Constitutional: She is oriented to person, place, and time. She appears well- developed and well-nourished. No distress. HENT: Head: Normocephalic and atraumatic. Eyes: Conjunctivae and EOM are normal. Right eye exhibits no discharge. Left eye exhibits no discharge. No scleral icterus. Neck: Neck supple. Cardiovascular: Normal rate, regular rhythm and normal heart sounds. No extrasystoles are present. Exam reveals no gallop and no friction rub. No murmur heard. Pulmonary/Chest: Effort normal and breath sounds normal. No respiratory distress. She has no wheezes. She has no rales. She exhibits no tenderness. Abdominal: Soft. Bowel sounds are normal. She exhibits no distension. There is no tenderness. Musculoskeletal: She exhibits no edema or tenderness. Lymphadenopathy: Head (right side): No submental, no submandibular, no tonsillar, no preauricular, no posterior auricular and no occipital adenopathy present. Head (left side): No submental, no submandibular, no tonsillar, no preauricular, no posterior auricular and no occipital adenopathy present. She has no cervical adenopathy. She has no axillary adenopathy. Right: No supraclavicular adenopathy present. Left: No supraclavicular adenopathy present. Neurological: She is alert and oriented to person, place, and time. She exhibits normal muscle tone. Coordination normal. Skin: Skin is warm and dry. No rash noted. She is not diaphoretic. No erythema. No pallor. Psychiatric: She has a normal mood and affect. Her behavior is normal. Judgment and thought contentnormal. Vitals reviewed. Breast__X__ no nipple discharge, no dryness, no erythema, no tenderness, no lymphedema of left breast or left arm . Good shoulder ROM Treated site: ____Right or __X__Left, __X__Breast or Chest wall Telangectasias: __X__None, ____Few; Moderate; Many and confluent Hypopigmentation: __X__None; ____Slight or localized; ____Marked or generalized Hyperpigmentation: __X__None; ____Slight or localized; ____Marked or generalized Fibrosis: X None; Increased density; ____Marked increased density + retraction; ____ Very marked Dry skin: _X___None; ____Asymptomatic; symptomatic; Interferes with ADL Cosmetic Result: ___X__Excellent; Good;____ Fair; ____Poor 05/14/2018- mammogram CONCLUSION: No mammographic evidence of malignancy Assessment and Plan: Narda Rivera is a torri 68 y.o. female.breast ca, L, IDC w/lobular features, high gr, ER+IL+, [id number]-, s/p lumpectomy & SNB, pT2 pN1a, stage II, +extensive LVI. S/p adjuvant chemo with ddAC and taxol followed by radiation therapy. She was treated with 60.4 Gy which was completed on 10/18/2014. She is off tamoxifen for hormone therapy due to SE of severe depression requiring hospitalization.. She had a mammogram 05/14/2018 which was negative for recurrence. There is JACINDA. She is to have a repeat mammogram in May 2019 and would prefer to have this done locally. Order was done. Depression-patient is followed by psych CRAYON SAWYER locally once a month. Currently depression is controlled. We discussed ongoing followup with medical oncology every six months and yearly surveillance mammo. We will not plan additional followup in radiation oncology. Patient is agreeable with this plan. F/U with Dr Saavedra in May 2019 documented in this encounter Plan of Treatment Not on file documented as of this encounter Visit Diagnoses Diagnosis Breast cancer, stage 2, left documented in this encounter Care Teams Territory Representative Relationship Specialty Start Date End Date Ag Trent MD [address] [place] [address] PCP - General 02/02/14 documented as of this encounter
--- OUTSIDE RECORDS SUMMARY | 2024-02-17 15:56 | XMS_ITS | Encounter Summary ---
Author Organization [facility] [place] [address] Care Team Providers Care Reamer Hand Name Role Phone Ag Trent MD Primary Care Provider [phone] Encounter Details Date Type Department Care Team (Late st Contact Info) Description 05/09/2020 Orders Only Hematology/Oncology at [address] [phone] Kendy Su, RN Malignant neoplasm of left breast in female, estrogen receptor positive, unspecified site of breast Social History Tobacco Use Types [...] estrogen receptor positive, unspecified site of breast documented in this encounter Care Teams Reamer Hand Relationship Specialty Start Date End Date Ag Trent MD [address] [place] [address] PCP - General 02/02/14 documented as of this encounter
--- OUTSIDE RECORDS SUMMARY | 2024-02-17 15:56 | XMS_ITS | Encounter Summary ---
Author Organization [facility] [place] [address] Care Team Providers Care Cylinder Tester Name Role Phone Ag Trent MD Primary Care Provider Encounter Details Date Type Department Care Team (Late st Contact Info) Description 01/29/2017 Orders Only Hematology/Oncology at [address] [phone] Kiarra Madrid RN Personal history of breast cancer Social History Tobacco Use Types Packs/Day Years [...] as of this encounter Visit Diagnoses Diagnosis Personal history of breast cancer Personal history of malignant neoplasm of breast documented in this encounter Care Teams Cylinder Tester Relationship Specialty Start Date End Date Ag Trent MD [address] [place] [address] PCP - General 02/02/14 documented as of this encounter
--- OUTSIDE RECORDS SUMMARY | 2024-02-17 15:56 | XMS_ITS | Encounter Summary ---
Author Organization [facility] Address [facility] [place] [address] Care Team Providers Care Stable Cleaner Name Role Phone Ag Trent MD Primary Care Provider [phone] Encounter Details Date Type Department Care Team (Late st Contact Info) Description 05/19/2020 Telephone Hematology [place] [phone] Oxana Waite Social History Tobacco Use Types [...] * Telephone Encounter - Oxana Waite - 05/19/2020 3:49 PM EST Narda Rivera 1950 [id number] Referring provider: Kendy Su APRN Date of Referral: 05.19.2020 Please review outside breast imaging dated: 05.19.2020 Reason for exam and clinical history:Left breast spiculated hypoechoic mass 12 o'clock Category: $ Questions to be answered: ?more imaging, ? BX Sending Institution: [facility] Patient would like treatment at: [facility] Call pt at: Mobile Not on file. documented in this encounter Plan of Treatment Not on file documented as of this encounter Visit Diagnoses Not on filedocumented in this encounter Care Teams Stable Cleaner Relationship Specialty Start Date End Date Ag Trent MD [address] [place] [address] PCP - General 02/02/14 documented as of this encounter
--- OUTSIDE RECORDS SUMMARY | 2024-02-17 15:56 | XMS_ITS | Encounter Summary ---
Author Organization [facility] [place] [address] Care Team Providers Care Clinical Lab Specialist Name Role Phone Ag Trent MD Primary Care Provider [phone] Encounter Details Date Type Department Care Team (Late st Contact Info) Description 04/10/2018 1:00 PM EST Office Visit Hematology/Oncology at [address] [phone] Karen Guadalupe APRN Malignant neoplasm of left breast in female, [...] Sign Reading Time Taken Comments Blood Pressure - - Pulse 73 04/10/2018 1:11 PM EST Temperature 36.8 ??C (98.2 ??F) 04/10/2018 1:11 PM ES T Respiratory Rate 20 04/10/2018 1:11 PM EST Oxygen Saturation 97% 04/10/2018 1:11 PM EST Inhaled Oxygen Concentration - - Weight 83.2 kg (183 lb 8 oz) 04/10/2018 1:11 PM EST Height 161 cm (5' 3.39) 04/10/2018 1:11 PM EST Body Mass Index 32.11 04/10/2018 1:11 PM EST documented in this encounter Patient Instructions * Patient Instructions* Karen Guadalupe APRN - 04/10/2018 1:00 PM EST She will return in 6 months with labs prior for followup. 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 Subjective:I feel fine HPI: Ms. Narda Rivera is 67 y.o. female Referred to us for consultation by Dr. Cohen on new diagnosis of breast cancer. She initially presented with a mass in her upper outer left breast with calcifications on a screening mammogram in December 2013.The main mass was biopsied showing infiltrating ductal and lobular carcinoma, ER positive, [id number]. MRI was then performed that showed the mass with multiple small satellites around it. Mrs. Rivera underwent left partial mastectomy and sentinel lymph node biopsy on February 23, 2014. Postoperative course was uneventful. she completed radiation onJuly . Interval history: Ms. Rivera is in clinic today for followup appointment on breast cancer. Overall Ms. Harrell feels well. Denies any new pain. Narda is compliant with tamoxifen. She complains of thinning hair. Denies any bleeding. 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 She does have a mood disorder and is now on low dose lamictal- 25 mg. This seems to be helping her depression. PMH: No interval changes since last visit. Arrhythmia Left knee replacement in August 2015 Hypothyroidism on Synthroid Patient Active Problem List Diagnosis ??? Hypothyroidism ??? 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 Breasts no pain in either breast, no swelling, no issues with range of motion, no lumps noted by patient. PE: General: AAAx3, in NAD Head: Normocephalic, [...] axillary or inguinal areas. Neurologic: Normal Vitals Pulse 73 Temp 36.8 ??C (98.2 ??F) (Oral) Resp 20 Ht 161 cm (5' 3.39) Wt 83.2 kg (183 lb 8 oz) SpO2 97% BMI 32.11 kg/m?? Breast exam Left breast shows changes consistent with surgery and skin changes consistent with radiation therapy.Right breast normal no masses felt no discharge from nipple. No pain noted or swellingin either side. Karnofsky score is 90 Pathology: ---Pathologic Diagnosis--- [...] count: Score = 3 Total Khalif Score: [place] Grade III: 8-9 points DCIS: Ductal Carcinoma [...] slide reconstruction) MICROCALCIFICATIONS: Present in nonneoplastic tissue ER/DE/HER2: ER/DE/Her2 Comment: Please see prior biopsy [id number]. HER2 FISH will be repeated on this [...] cancer cells with immunostaining) Stain Intensity: Strong DE immunoreactivity: Positive (11-90% cancer cells with immunostaining) Stain Intensity: Strong NEGATIVE FOR HER2/DEL AMPLIFICATION Labs: today BUN 13, creatinine 0.66, total bilirubin 0.4, calcium 8.3, AST 16, ALT 18, alkaline phosphatase 74, albumin 3.2, TSH 5.38WBC 4.11, hemoglobin 14.7, platelet count 227 ANC 2.4 Imagin05/28/17 mammogram: CONCLUSION: No mammographic evidence of [...] features, lymphovascular invasion present, SLN 2/2 positive, ER+/DE+, Her-2 unaplified, T2,at least N1a, Mx Treatment:s/p [...] 5-year-old hormonal therapy versus 10 year treatment. It demonstrates improvement in overall survival especially in patients with more advanced disease. All questions were answered to patient's satisfaction. We will plan for 10 years of tamoxifen treatment at this time. 2. Osteopenia: borderline, T -1.0. Plan: 1. Continue Tamoxifen 20 mg daily 2. Next visit with CMP and CBC in 6 months 3. She is due for a mammogram and followup visit with Dr Cohen the end of May. Mrs. Rivera is by herself today. The plan was discussed with the patient in details. All questions were answered to patient's satisfaction documented in this encounter Plan of Treatment Not on file documented as of this encounter Procedures Procedure Name Priority Date/Time Associated Diagnosis Comments LAB SCAN 04/10/2018 12:00 AM EST documented in this encounter Results * SCAN DOC: LAB (04/10/2018 12:00 AM EST) Narrative 04/10/2018 12:00 AM EST Ordered by an unspecified provider. Scanning Provider MEDIA MGR SCAN EXT O RDR/RSLT documented in this encounter Visit Diagnoses Diagnosis Malignant neoplasm of left breast in female, estrogen receptor positive, unspecified site of breast documented in this encounter Care Teams Clinical Lab Specialist Relationship Specialty Start Date End Date Ag Trent MD [address] [place] [address] PCP - General 02/02/14 documented as of this encounter
--- OUTSIDE RECORDS SUMMARY | 2024-02-17 15:56 | XMS_ITS | Encounter Summary ---
Author Organization [facility] Address [facility] [place] [address] Care Team Providers Care Forging Press Operator Name Role Phone Ag Trent MD Primary Care Provider [phone] Encounter Details Date Type Department Care Team (Latest Contact Info) Description 05/28/2017 10:15 AM EST - 05/28/2017 11:59 PM [facility] [place] [id number] Ibrahima Cohen MD [facility] [place] [address] Malignant neoplasm of left female breast Discharge Disposition: Home Social History Tobacco Use Types Packs/Day Years Used Date Smoking Tobacco: Never Smokeless Tobacco: Never Alcohol Use Standard Drinks/Week Comments No 0 (1 standard drink = 0.6 oz pur e alcohol) Sex and Gender Information Value Date Recorded Sex Assigned at Not on file Gender Identity Not on file Sexual Orientation Not on file documented as of this encounter Medications at Time of Discharge Medication Sig Dispensed Refills Start Date End Date turmeric root extract 500 mg Capsule Take [...] daily. omeprazole (PRILOSEC) 20 mg Capsule, Delayed Release(E.C.)Indicatio ns:Malignant neoplasm of left female breast Take 1 capsule by mouth daily. 90 capsule 1 08/09/2014 aspirin 81 mg Tablet, Delayed Release (E.C.) Take 81 mg by mouth daily. tamoxifen (NOLVADEX) 20 mg TabletIndications:Pers onal history of breast cancer Take 1 tablet by mouth daily. 90 tablet 3 01/29/2017 12/30/2018 hydroCHLOROthiazide (HYDRODIURIL) 25 mg Tablet Take 25 mg by mouth daily. 08/12/2017 pravastatin (PRAVACHOL) 20 mg Tablet Take 40 mg by mouth daily. 04/25/2020 polyethylene glycol (MIRALAX) 17 gram Powder in Packet Take 17 g by mouth 3 times daily as needed. 03/25/2019 documented as of this encounter Plan of Treatment Not on file documented as of this encounter Procedures Procedure Name Priority Date/Time Associated Diagnosis Comments MAMMO SCREENING CAD AND NATHEN BILATERAL Routine 05/28/2017 10:46 AM EST Malignant neoplasm of left female breast documented in this encounter Results * Mammo Screen CAD and Nathen Bilat (Generic) (05/28/2017 10:46 AM EST) Anatomical Region Laterality Modality Breast Bilateral Mammography Narrative 05/28/2017 11:16 AM EST BILATERAL MAMMOGRAPHY REASON FOR EXAM: Screening TECHNIQUE: CC and MLO views were obtained of each breast using standard 2-D mammography as well as 3-D tomosynthesis. Computer aided detection was used. This is compared with prior images. FINDINGS: ??The breasts are heterogeneously dense, which may obscure small masses. There are no suspicious microcalcifications, masses, or areas of distortion. The pattern is stable. CONCLUSION: No mammographic evidence of malignancy. RECOMMENDATION: The [employer] and The Society of Breast Imaging recommend annual screening beginning at age 40 for the general female population. Screening should continue as long as a woman is in good health and is expected to live 10 more years or longer. All women should be familiar with the known benefits, limitations, and potential harms linked to breast cancer screening. They should also know how their breasts normally look and feel and report any breast changes to a health care provider right away. Some women - because of their family history, a genetic tendency, or certain other factors - should be screened with MRIs along with mammograms. (The number of women who fall into this category is very small.) The patient and health care provider should discuss the patient history and decide if earlier screening and breast MRI are appropriate. A result letter has been sent to this patient by the [facility]. BIRADS CATEGORY 1: NEGATIVE Ibrahima Cohen MD IMG MAMMO ORDERABLES documented in this encounter Visit Diagnoses Diagnosis Malignant neoplasm of left female breast Malignant neoplasm of breast (female), unspecified site documented in this encounter Care Teams Forging Press Operator Relationship Specialty Start Date End Date Ag Trent MD [address] [place] [id number] PCP - General 02/02/14 documented as of this encounter
--- OUTSIDE RECORDS SUMMARY | 2024-02-17 15:56 | XMS_ITS | Encounter Summary ---
Author Organization [facility] Address [address] [place] [address] Care Team Providers Care Photoengraving Helper Name Role Phone Latoya Quintanilla MD Primary Care Provider Unavailabl e Encounter Details Date Type Department Care Team (Late st Contact Info) Description 05/22/2020 Lab Requisition [facility] Pathology & Laboratory Medicine - [facility] [address] [place] [address] Radha Agudelo, DO [address] [place] [address] Encounter for other general examination Social History Tobacco Use Types Packs/Day Years [...] Date/Time Associated Diagnosis Comments SURGICAL PATHOLOGY Today 05/22/2020 14 :15 EST Encounter for other general examination documented in this encounter Results * SURGICAL PATHOLOGY (05/22/2020 14:15 EST) Final Diagnosis A. SOFT TISSUE, LEFT ANTERIOR CHEST WALL, NEEDLE CORE BIOPSY: - Benign fibroadipose tissue. See comment. 05/23/2020 16:42 EST [facility] Diagnosis Comment The tissue core biopsies are composed predominantly of benign adipose tissue. Scattered within the adipose tissue are foci of dense fibrosis. There are two foci (1 mm) of very dense fibrosis that could represent postradiation change. Rare foci suggest the possibility of fat necrosis; however, no overt fat necrosis is present. The biopsy is negative for carcinoma. Additional clinical correlation is suggested to determine whether these biopsy findings correlate with the clinical findings. 05/23/2020 16:42 [facility] Attestation By the signature below, the attending physician certifies that they have 1) personally conducted a gross and/or microscopic examination of the described specimen(s), and/or personally interpreted the results of laboratory testing of the described specimen(s), and 2) personally rendered or confirmed the above diagnosis. 05/23/2020 16:42 [facility] at 1642 Clinical History Mass left anterior chest wall, history of breast cancer, left, status post radiation therapy and chemo 05/23/2020 16:42 [facility] Gross Description A. Received in formalin labelled with proper patient identification (initials B, S) and L anterior chest wall mass L breast are 6 yellow tissue cores (0.3 cm to 1.2 cm in length, and each 0.1 cm in diameter). Entirely submitted in A1-A2. Time removed from patient: 14:15 hours 05/22/2020 Time placed in formalin: 14:15 hours 05/22/2020 Time out of formalin: 09:00 05/23/2020 KATERIN VINSON(ASCP) 05/23/2020 8:21 05/23/2020 16:42 [facility] Performing Lab [facility] 05/23/2020 16:42 [facility] Scanned Images 05/23/2020 16:42 [facility] Tissue ENTIRE BREAST / Unknown 05/22/2020 14:15 EST 05/22/2020 23:09 EST us Radha Agudelo DO PATHOLOGY ORDERABLES Final Re sult [facility] [address] [place] [address] documented in this encounter Visit Diagnoses Diagnosis Encounter for other general examination documented in this encounter Care Teams Photoengraving Helper Relationship Specialty Start Date End Date Latoya Quintanilla MD PCP - General 03/16/10 01/19/24 documented as of this encounter
--- OUTSIDE RECORDS SUMMARY | 2024-02-17 15:56 | XMS_ITS | Encounter Summary ---
Author Organization [facility] Address [facility] [place] [address] Care Team Providers Care Betting Clerks Name Role Phone Ag Trent MD Primary Care Provider [phone] Reason for Visit * Auth/Cert Specialty Diagnoses [...] Expiration Date Visits Re quested Visits Authorized [id number] 1 1 Encounter Details Date Type Department Care Team (Late st Contact Info) Description 03/26/2019 9:30 AM EST - 03/26/2019 10:30 AM EST [place] [address] Nicholas Diane MD [facility] [place] [address] CARDIAC CATHETERIZATION Social History Tobacco Use Types Packs/Day Years [...] Sign Reading Time Taken Comments Blood Pressure 188/74 03/26/2019 10:28 AM EST Pulse 71 03/26/2019 10:28 AM EST Temperature 37.4 ??C (99.3 ??F) 03/26/2019 10:[address] Respiratory Rate 16 03/26/2019 10:28 AM EST Oxygen Saturation 100% 03/26/2019 10:28 AM EST Inhaled Oxygen Concentration - - Weight 83.2 kg (183 lb 6.4 oz) 03/26/2019 10:28 AM EST Height - - Body Mass Index 33.01 03/26/2019 10:28 AM EST documented in this encounter Discharge Summaries * Isaac Morse - 03/27/2019 7:42 AM EST Discharge Summary Patient Name: Narda Rivera Patient Age: 68 y.o. Language: Andorran Race: White Ethnicity: Not nor Admit date: [...] features, lymphovascular invasion present, SLN 2/2 positive, ER+/CT+, Her-2 unaplified, T2,at least N1a, Mx Treatment:s/p [...] Operations: Procedure(s): CARDIAC CATHETERIZATION CORONARY ANGIOGRAPHY; W LHC,POSSIBLE PCI History of Presentation: Narda Rivera??is a [...] FIND 2 times daily. Estrogen suppressant from rn lpn cna, takes twice a day Refills: 0 VITAMIN [...] appointments: -During 8am-5pm Friday through Friday call [phone] to speak with a nurse in the cardiology clinic -All other times call [phone] and ask to speak to the postal support employee seasoning mixer. MEDICATIONS Plavix -you need to be on daily Plavix for at least 6 months and aspirin for lifetime to help prevent clots forming inside of your stent. -do not stop plavix without talking to your operations inspector -You should be taking a statin medication [...] Primary care provider: Cardiology: Ag Trent MD [phone] Follow up as planned or as needed. Please schedule an appointment to follow up with your operations inspector, Dr. Mariee in 3-6 weeks. General Instructions None Discharge References/Attachments None Isaac Morse MD Interventional Cardiology 03/27/19 7:42 AM [place] Pager: [phone] documented in this encounter Discharge Instructions * Patient Instructions* Isaac Morse - 03/27/2019 7:29 AM EST Discharge Instructions following cardiac catheterization Cardiology Instructions Call your doctor if you experience: Chest pain, dyspnea, pain or swelling in legs occurs. If you have non-emergent questions between now and the time of your follow up appointments: -During 8am-5pm Friday through Friday call [phone] to speak with a nurse in the cardiology clinic -All other times call [phone] and ask to speak to the postal support employee seasoning mixer. MEDICATIONS Plavix -you need to be on daily Plavix for at least 6 months and aspirin for lifetime to help prevent clots forming inside of your stent. -do not stop plavix without talking to your operations inspector -You should be taking a statin medication [...] Primary care provider: Cardiology: Ag Trent MD [phone] Follow up as planned or as needed. Please schedule an appointment to follow up with your operations inspector, Dr. Mariee in 3-6 weeks. * Attachments The following attachments cannot be sent through Care Everywhere. * PCI (Percutaneous Coronary Intervention): Post-op (Andorran) documented in this encounter Medications at Time [...] FIND 2 times daily. Estrogen suppressant from rn lpn cna, takes twice a day lamoTRIgine (LAMICTAL) 25 [...] discharged with all belongs. Patient ambulated to entrance with staff * Maria L Borjas MSW - 03/27/2019 9:17 AM EST AUTOMOTIVE LEASING SALES REPRESENTATIVE contacted [facility] ([facility]) who confirmed pt will be picked up at [facility] today (03/27) at 12:00pm. AUTOMOTIVE LEASING SALES REPRESENTATIVE provided RCT with contact information for self and Short Stay Unit if needed for any additional follow up. Office Of Care Management Float/Weekend Registered Respiratory Therapist JEREMY Caruso Pager [phone] * Kari Barker RN - 03/26/2019 3:01 PM EST Patient Name: Narda Rivera Patient Age: 68 y.o. Birthdate: 1950 Admit date: 03/26/2019 Attending Physician: Nicholas Diane MD Narda Rivera arrived to [facility] 11 @ 1452 from [facility] [place], report received from Julia BUTT. Oriented to room, call perea within reach, educated on importance of using prior to getting OOB, AVSS, incision nobleeding, no hematoma noted. IV fluids continued. Denies any pain. Will continue to monitor. documented in this encounter H&P Notes * Isaac Morse Karen - 03/26/2019 12:35 PM EST Images from [...] features, lymphovascular invasion present, SLN 2/2 positive, ER+/CT+, Her-2 unaplified, T2,at least N1a, Mx Treatment:s/p [...] FIND 2 times daily. Estrogen suppressant from rn lpn cna, takes twice a day ??? lamoTRIgine (LAMICTAL) [...] file Gets together: Not on file Attends anabaptism service: Not on file Active member of [...] patient and available family. Nicholas Diane MD, [facility] Attending Computer Technologist Pager [phone] * Isaac Morse - 03/26/2019 10:34 AM [...] FIND 2 times daily. Estrogen suppressant from rn lpn cna, takes twice a day ??? lamoTRIgine (LAMICTAL) [...] in an outpatient cardiac rehabilitation program at [facility] was discussed. Patient declined a referral to this program. She expressed concern with having to leave her home 3 days/week to attend the program. She stated she would prefer to continue to exercise at home on her bike and treadmill. I gave her a brochure for cardiac rehab at [facility] if she changes her mind. * Brief Op Note - Nicholas Diane MD - 03/26/2019 12:25 PM EST Images from the original note were not included. Preliminary Cardiac Catheterization Procedure Note: Patient Name: Narda Rivera : [id number] MR#: [id number] Case Date: 03/26/2019 Technical Support Assistant: Surgeon(s) and Role: * Nicholas Diane MD - Primary * Isaac Morse MD - Fellow Preoperative diagnosis: Screening for cardiovascular condition [Z13.6]/Abnormal stress test [R94.39] Postoperative diagnosis: * ASCVD * Procedure(s) performed: [facility] Coronary angio Stent insertion, coronary Access: right [...] unspecified vessel or lesion type, unspecified whether [place] or transplanted heart HC VENIPUNCTURE STAT 03/26/2019 10:12 AM EST HEMOGRAM STAT 03/26/2019 10:12 AM EST DIFFERENTIAL, AUTOMATED STAT 03/26/2019 10:12 AM EST HC CBC,PLT & AUTO DIFF STAT 03/26/2019 10:12 AM EST WETLAND SCIENTIST SCAN 03/26/2019 12:00 AM EST documented in this encounter Results * EKG 12 Lead (03/27/2019 7:23 AM EST) Ventricular rate 51 BPM MUSE SYSTEM Atrial Rate 51 BPM MUSE SYSTEM P-R Interval 172 ms MUSE SYSTEM QRS Duration 86 ms MUSE SYSTEM Q-T Interval 512 ms MUSE SYSTEM QTC Calculated (Bezet) 471 ms MUSE SYSTEM Calculated P [place] 32 degrees MUSE SYSTEM Calculated T [place] 23 degrees MUSE SYSTEM INTERPRETATION Sinus bradycardia ST & T wave abnormality, consider anterolateral ischemia Prolonged QT Abnormal ECG When compared with ECG of 26-MAR-2019 12:53, T wave inversion now evident in Lateral leads Confirmed by MD Pacheco, Urban Oakley ([id number]) on 03/28/2019 6:28:13 PM MUSE SYSTEM 03/27/2019 7:23 AM EST 03/28/2019 6:28 PM EST Nicholas Diane MD ECG ORDERABLES MUSE SYSTEM * Differential, Automated (03/27/2019 12:50 AM EST) Neutrophil % 54.5 % [facility] Neutrophil Absolute 3.27 1.70 - 6.10 x10(3)/[facility] Lymph % 32.8 % [facility] Lymphocytes Abs 2.0 0.9 - 3.2 x10(3)/[facility] Monocyte % 9.7 % [facility] Monocyte Abs 0.6 0.3 - 0.9 x10(3)/[facility] Eos % 2.5 % [facility] Eosinophils Abs 0.2 0.0 - 0.4 x10(3)/[facility] Basophil % 0.3 % [facility] Baso Absolute 0.0 0.0 - 0.1 x10(3)/[facility] Immature Gran % 0.20 % [facility] Comment: Immature granulocytes(IG's)percentage and absolute count will include metamyelocytes, myelocytes, and promyelocytes. Blood smears from CBCs yielding IG's will be scanned manually for concordance. If this scan disagrees with the automated IG or if promyelocytes are noted, a manual differential will be performed. Immature Gran Absolute 0.01 0.00 - 0.04 x10(3)/[facility] Blood specimen (specimen) 03/27/2019 12:50 AM EST 03/27/2019 1:01 AM EST Narrative Resulting Agency Comment Spec In Lab Isaac Morse MD HEMATOLOGY ORDERABLE S [facility] [place] [address] * Hemogram (03/27/2019 12:50 AM EST) White Blood Cell 6.0 4.0 - 9.5 x10(3)/[facility] Red Blood Cell 4.73 4.00 - 5.21 x10(6)/[facility] Hemoglobin 14.0 11.7 - 15.5 gm/dL [facility] Hematocrit 40.5 35.7 - 45.8 % [facility] Mean Cell Volume 85.6 82.6 - 94.4 fL [facility] Mean Cell Hemoglobin 29.6 27.1 - 32.0 pg [facility] Mean Cell Hemoglobin Concentration 34.6 31.7 - 35.0 gm/dL [facility] Platelet 250 145 - 357 x10(3)/[facility] RDW Standard Deviation 38.3 37.0 - 46.0 fL [facility] RDW coefficient of variation 12.2 11.5 - 14.1 % [facility] Mean Platelet Volume 9.5 7.6 - 12.9 fL [facility] NRBC% auto 0.0 % [facility] NRBC Absolute 0.000 0.000 - 0.000 x10(3)/mcL [facility] Blood specimen (specimen) 03/27/2019 12:50 AM EST 03/27/2019 1:01 AM EST Narrative Resulting Agency Comment Spec In Lab Isaac Morse MD HEMATOLOGY ORDERABLE S [facility] [place] [address] * Lipid Panel (Reflex Direct LDL) (03/27/2019 12:50 AM EST) Cholesterol, Total 186 mg/dL [facility] Comment: Lower Risk: <200 mg/dL Average Risk: 200-239 mg/dL Higher Risk: >kq=407 mg/dL Triglyceride 165 mg/dL [facility] Comment: Average Risk/Lower Risk: <150 mg/dL Borderline High Risk: 150-199 mg/dL High Risk: 200-499 mg/dL Very High Risk: >rw=447 mg/dL HDL Cholesterol 40 mg/dL [facility] Comment: Males: ?? Higher Risk: <40 mg/dL Females: ?? HIgher Risk: <50 mg/dL LDL Cholesterol 113 mg/dL [facility] Comment: Lowest Risk: <100 mg/dL Lower Risk: 100-129 mg/dL Borderline High Risk: 130-159 mg/dL High Risk: 160-189 mg/dL Very High Risk: >mn=372 mg/dL Cholesterol/HDL Ratio 4.6 ratio [facility] Lipid Interpretation See Note [facility] Comment: Lipid management should be guided by a patient? s ASCVD risk, goals and preferences. ACC/AHA Guidelines recommend high intensity statin if clinical ASCVD or LDL greater than or equal to 190 mg/dL. http://Tapda[employer].Crowd Analyzer/VET-ZZB-Sbartlwcl Adults aged 40-75 with LDL 70-189 mg/dL should have their 10 year ASCVD risk estimated with the ACC/AHA ASCVD risk mechanical estimator http://tools.acc.org/IVYNK-Gsqm-Glxsnptzd/ Statin should be discussed if risk greater [...] Diane MD CHEMISTRY ORDERABLES Performing Organization Address City/State/[facility] Co de Phone Number [facility] [place] [address] * (ABNORMAL) BMP w/fasting Glucose (03/27/2019 12:50 AM EST) Glucose Fasting 97 65 - 99 mg/dL [facility] Comment: ?Fasting* Glucose Interpretive Criteria Normal [...] of Diabetes Mellitus, Position Statement from the [place] [employer]. ??Diabetes Care, Volume 33, Supplement 1, Mar 2009 Blood Urea Nitrogen 15 8 - 18 mg/dL [facility] Creatinine 0.66(L) 0.70 - 1.20 mg/dL [facility] Sodium 141 135 - 145 mmol/L [facility] Potassium 4.2 3.5 - 5.0 mmol/L [facility] Comment: Please note: ??Patients with WBC >100,000 may have falsely elevated Potassium levels. ??For accurate Potassium quantification in these patients send serum separator tube (gold top) for subsequent determinations. ??Contact the Clinical Chemistry Laboratory if there are any questions. Chloride 104 98 - 107 mmol/L [facility] Carbon Dioxide 24 22 - 31 mmol/L [facility] Anion Gap 13 5 - 15 mmol/L [facility] Calcium 9.2 8.5 - 10.5 mg/dL [facility] Est Glomerular Filtration Rate 90 >=60 mL/min/1. 73 m?? [facility] Comment: The eGFR was calculated using the CKD-EPI equation. As with all creatinine based estimates of kidney function, eGFR values calculated with the CKD-EPI equation are not accurate in patients with acute kidney failure, extremes of body mass or the acutely ill. http://Molecular Imaging/DHnkf eGFR 104 >=60 mL/min/1. 73 m?? [facility] Comment: The eGFR was calculated using the CKD-EPI equation. As with all creatinine based estimates of kidney function, eGFR values calculated with the CKD-EPI equation are not accurate in patients with acute kidney failure, extremes of body mass or the acutely ill. http://Molecular Imaging/DHMCnkf Blood specimen (specimen) 03/27/2019 12:50 AM EST 03/27/2019 1:01 AM EST Narrative Resulting Agency Comment Spec In Lab Nicholas Diane MD CHEMISTRY ORDERABLES [facility] [place] [address] * EKG 12 Lead (03/26/2019 12:53 PM EST) Ventricular rate 61 BPM MUSE SYSTEM Atrial Rate 61 BPM MUSE SYSTEM P-R Interval 168 ms MUSE SYSTEM QRS Duration 92 ms MUSE SYSTEM Q-T Interval 448 ms MUSE SYSTEM QTC Calculated (Bezet) 450 ms MUSE SYSTEM Calculated P [place] 55 degrees MUSE SYSTEM Calculated R [place] -6 degrees MUSE SYSTEM Calculated T [place] 46 degrees MUSE SYSTEM INTERPRETATION Normal sinus rhythm Nonspecific ST and T wave abnormality Abnormal ECG No previous ECGs available Confirmed by Kenji Friend MD ([id number]) on 03/26/2019 3:55:47 PM MUSE SYSTEM 03/26/2019 12:5 3 PM EST 03/26/2019 3:55 PM EST Nicholas Diane MD ECG ORDERABLES MUSE SYSTEM * Differential, Automated (03/26/2019 10:12 AM EST) Neutrophil % 60.7 % [facility] Neutrophil Absolute 2.93 1.70 - 6.10 x10(3)/[facility] Lymph % 27.3 % [facility] Lymphocytes Abs 1.3 0.9 - 3.2 x10(3)/[facility] Monocyte % 8.5 % [facility] Monocyte Abs 0.4 0.3 - 0.9 x10(3)/[facility] Eos % 2.5 % [facility] Eosinophils Abs 0.1 0.0 - 0.4 x10(3)/[facility] Basophil % 0.6 % [facility] Baso Absolute 0.0 0.0 - 0.1 x10(3)/[facility] Immature Gran % 0.40 % [facility] Comment: Immature granulocytes(IG's)percentage and absolute count will include metamyelocytes, myelocytes, and promyelocytes. Blood smears from CBCs yielding IG's will be scanned manually for concordance. If this scan disagrees with the automated IG or if promyelocytes are noted, a manual differential will be performed. Immature Gran Absolute 0.02 0.00 - 0.04 x10(3)/[facility] Blood specimen (specimen) 03/26/2019 10:12 AM EST 03/26/2019 10:16 AM EST Narrative Resulting Agency Comment Spec In Lab Carroll CONKLIN HEMATOLOGY ORDERABLE S Performing Organization Address City/[facility]/ZIP Co de Phone Number [facility] [place] [address] * Hemogram (03/26/2019 10:12 AM EST) White Blood Cell 4.8 4.0 - 9.5 x10(3)/[facility] Red Blood Cell 5.16 4.00 - 5.21 x10(6)/[facility] Hemoglobin 15.1 11.7 - 15.5 gm/dL [facility] Hematocrit 45.0 35.7 - 45.8 % [facility] Mean Cell Volume 87.2 82.6 - 94.4 [facility] Mean Cell Hemoglobin 29.3 27.1 - 32.0 pg [facility] Mean Cell Hemoglobin Concentration 33.6 31.7 - 35.0 gm/dL [facility] Platelet 253 145 - 357 x10(3)/[facility] RDW Standard Deviation 39.7 37.0 - 46.0 [facility] RDW coefficient of variation 12.4 11.5 - 14.1 % [facility] Mean Platelet Volume 9.4 7.6 - 12.9 [facility] NRBC% auto 0.0 % [facility] NRBC Absolute 0.000 0.000 - 0.000 x10(3)/[facility] Blood specimen (specimen) 03/26/2019 10:12 AM EST 03/26/2019 10:16 AM EST Narrative Resulting Agency Comment Spec In Lab [facility]KLIN HEMATOLOGY ORDERABLE S [facility] [place] [address] * (ABNORMAL) BMP w/fasting Glucose (03/26/2019 10:12 AM EST) [facility] Signature Glucose Fasting 108(H) 65 - 99 mg/dL [facility] Comment: ?Fasting* Glucose Interpretive Criteria Normal [...] of Diabetes Mellitus, Position Statement from the [place] [employer]. ??Diabetes Care, Volume 33, Supplement 1, Mar 2009 Blood Urea Nitrogen 12 8 - 18 mg/dL [facility] Creatinine 0.54(L) 0.70 - 1.20 mg/dL [facility] Sodium 140 135 - 145 mmol/L [facility] Potassium 4.1 3.5 - 5.0 mmol/L [facility] Comment: Please note: ??Patients with WBC >100,000 may have falsely elevated Potassium levels. ??For accurate Potassium quantification in these patients send serum separator tube (gold top) for subsequent determinations. ??Contact the Clinical Chemistry Laboratory if there are any questions. Chloride 104 98 - 107 mmol/L [facility] Carbon Dioxide 22 22 - 31 mmol/L [facility] Anion Gap 14 5 - 15 mmol/L [facility] Calcium 9.4 8.5 - 10.5 mg/dL [facility] Est Glomerular Filtration Rate 96 >=60 mL/min/1. 73 m?? [facility] Comment: The eGFR was calculated using the CKD-EPI equation. As with all creatinine based estimates of kidney function, eGFR values calculated with the CKD-EPI equation are not accurate in patients with acute kidney failure, extremes of body mass or the acutely ill. http://Molecular Imaging/DHnkf eGFR 111 >=60 mL/min/1. 73 m?? [facility] Comment: The eGFR was calculated using the CKD-EPI equation. As with all creatinine based estimates of kidney function, eGFR values calculated with the CKD-EPI equation are not accurate in patients with acute kidney failure, extremes of body mass or the acutely ill. http://Molecular Imaging/MUSCOGEEnkf Blood specimen (specimen) 03/26/2019 10:12 AM EST 03/26/2019 10:16 AM EST Narrative Resulting Agency Comment Spec In Lab Nicholas Diane MD CHEMISTRY ORDERABLES [facility] [place] [address] * SCAN DOC: WETLAND SCIENTIST (03/26/2019 12:00 AM EST) Anatomical Region Laterality [...] unspecified vessel or lesion type, unspecified whether [place] or transplanted heart Screening for cardiovascular condition Screening for other and unspecified cardiovascular conditions Abnormal stress test Other nonspecific abnormal cardiovascular system function study documented in this encounter Admitting Diagnoses Diagnosis CAD (coronary artery disease) Coronary atherosclerosis of unspecified type of vessel, [place] or graft documented in this encounter Administered Medications Inactive Administered Medications - up to 3 most recent administrations Medication Order MAR Action Action Date Dose Rate Site alum-mag hydroxide-simeth (Maalox) (40 mg-40 mg-4 mg/mL) oral liquid ONCE PRN, Starting on Fri03/26/19 at 1147, Until Fri03/26/19 at 1452, Cath (Intra-Procedure), Routine Given 03/26/2019 11:47 AM EST 30 mLs amLODIPine (Norvasc) tablet 2.5 mg 2.5 mg, [...] Given 03/27/2019 8:32 AM EST 75 mg clopidogrel (Plavix) tablet ONCE PRN, Starting on Fri03/26/19 at 1132, Until Fri03/26/19 at 1452, Intra-Operative (Intra-Procedure), Routine Given 03/26/2019 11:32 AM EST 600 mg fentaNYL 50 mcg/mL multi-dose injection ONCE PRN, Starting on Fri03/26/19 at 1114, Until Fri03/26/19 at 1452, Intra-Operative (Intra-Procedure), Routine Given 03/26/2019 12:13 PM EST 25 mcg Given 03/26/2019 12:07 PM EST 25 mcg Given 03/26/2019 11:33 AM EST 25 mcg heparin (porcine) injection ONCE PRN, Starting on Fri03/26/19 at 1122, Until Fri03/26/19 at 1452, Cath (Intra-Procedure), Routine Given 03/26/2019 11:37 AM EST 3,000 Units Given 03/26/2019 11:22 AM EST 4,000 Units iohexol (OMNIPAQUE) 350 mg/mL solution ONCE PRN, Starting on Fri03/26/19 at 1224, Until Fri03/26/19 at 1452, Cath (Intra-Procedure), Routine Given 03/26/2019 12:24 PM EST 185 mLs lamoTRIgine (LaMICtal) tablet 50 mg 50 mg, [...] Given 03/26/2019 1:47 PM EST 25 mg midazolam (PF) (VERSED) multi-dose injection ONCE PRN, Starting on Fri03/26/19 at 1114, Until Fri03/26/19 at 1452, Cath (Intra-Procedure), Routine Given 03/26/2019 12:13 PM EST 1 mg Given 03/26/2019 12:07 PM EST 1 mg Given 03/26/2019 11:33 AM EST 1 mg niCARdipine 0.2 mg/mL (standard Adult and Pedi greater than 20 kg) infusion CONTINUOUS PRN, Starting on Fri03/26/19 at 1125, Until Fri03/26/19 at 1452, Intra-Operative (Intra-Procedure), Routine New Bag 03/26/2019 11:25 AM EST 2.5 mg/hr 12.5 mL/hr nitroGLYcerin 100 mcg/mL intracoronary dilution ONCE PRN, Starting on Fri03/26/19 at 1114, Until Fri03/26/19 at 1452, Cath (Intra-Procedure), Routine Given 03/26/2019 11:21 AM EST 150 mcg sodium chloride 0.9% infusion 150 mL/hr, Intravenous, CONTINUOUS, Starting on Fri03/26/19 at 1300, Until Fri03/26/19 at 1559, Recovery (Recovery-Hospital Unit) New Bag 03/26/2019 1:00 PM EST 150 mL/hr 150 mL /hr verapamil (ISOPTIN) injection ONCE PRN, Starting on Fri03/26/19 at 1121, Until Fri03/26/19 at 1452, Administer over 2 Minutes, Cath (Intra-Procedure) Given 03/26/2019 11:21 AM EST 2.5 mg zolpidem (Ambien) tablet 10 mg 10 mg, Oral, NIGHTLY PRN, Starting on Fri03/26/19 at 1921, Until 03/27/19 at 1547, Sleep, Routine Given 03/26/2019 9:56 PM EST 10 mg documented in this encounter Active and Recently Administered Medications Times are shown in EST. Scheduled Medication Order 03/25/2019 03/26/2019 03/27/2019 amLODIPine (Norvasc) tablet 2.5 mg (COMPLETED) 2.5 mg, Oral, ONCE, 1 dose, On Fri03/26/19 at 2045, Routine 2024 (Given - Provider: Osito Witt RN) aspirin EC tablet 81 mg 81 mg, Oral, DAILY, First dose on 03/27/19 at 0900, Until Discontinued, Routine 08 (Given - Provid er: Dariela Junior RN) clopidogrel (Plavix) tablet 75 mg 75 mg, Oral, DAILY, First dose on 03/27/19 at 0900, Until Discontinued, Recovery (Recovery-Hospital Unit), Routine 0832 (Given - Provid er: Dariela Junior RN) lamoTRIgine (LaMICtal) tablet 50 mg 50 mg, Oral, DAILY, First dose on 03/27/19 at 0900, Until Discontinued, Routine 08 (Given - Provid er: Dariela Junior RN) levothyroxine (Synthroid) tablet 175 mcg 175 mcg, Oral, DAILY, First dose on Fri03/27/19 at 0900, Until Discontinued 0831 (Given - Provid er: Dariela Junior RN) lisinopril (Prinivil;Zestril) tablet 5 mg (COMPLETED) 5 mg, Oral, ONCE, 1 dose, On Fri03/26/19 at 2200, Routine 2149 (Given - Provider: Osito Witt RN) metoprolol [...] RN)1213 (Given - Provider: Santi White RN) niCARdipine 0.2 mg/mL (standard Adult and Pedi greater than 20 kg) infusion (CANCELED) CONTINUOUS PRN, Starting on Fri03/26/19 at 1125, Until Fri03/26/19 at 1452, Intra-Operative (Intra-Procedure), Routine 1125 (New Bag - Provider: Cheyanne Clement RN)1228 (Stopped - Provider: Cheyanne Clement RN) nitroGLYcerin [...] PRN, Starting on Fri03/26/19 at 1921, Until 03/27/19 at 1547, Sleep, Routine 2156 (Given - Provider: Hortencia Witt RN) documented in this encounter Care Teams Betting Clerks Relationship Specialty Start Date End Date Ag Trent MD [address] [place] [address] PCP - General 02/02/14 documented as of this encounter
--- OUTSIDE RECORDS SUMMARY | 2024-02-17 15:56 | XMS_ITS | Encounter Summary ---
Author Organization [facility] Address [facility] [place] [address] Care Team Providers Care Accounting Professional Name Role Phone Ag Trent MD Primary Care Provider [phone] Encounter Details Date Type Department Care Team (Late st Contact Info) Description 03/18/2019 Orders Only Cardiology at [address] [place] [address] Carroll Middleton PA [facility] [place] [address] Screening for cardiovascular condition; Abnormal stress test Social History Tobacco Use Types Packs/Day Years [...] Procedure Name Priority Date/Time Associated Diagnosis Comments CARDIAC CATHETERIZATION Routine 03/26/2019 12:31 PM EST Screening for cardiovascular condition Abnormal stress test documented in this encounter Results * CARDIAC CATHETERIZATION (03/26/2019 12:31 PM EST) Anatomical Region Laterality Modality Other Narrative 03/26/2019 12:49 PM EST ?[facility] ? Cardiac Catheterization/Intervention Report ? Patient Name: FRAZIER, NARDA M. ? Procedure Date: 03/26/2019 ? A #: [id number] ? Primary Physician: Roxi, Nicholas T ? Case #: [id number] ? File Name: [id number] ? Catheterization Order Number: [id number] ? [facility] ? Final Report [place], [place] ? Patient Name: ? NARDA M. FRAZIER ? ID#: ?[id number] ? : ?1950 ? Procedure Date: ? March 26, 2019 ?Case #: ? [id number] ? Room: ? 1 ? Case Physician: ? Nicholas Diane M.D. ?Start: ?11:20 ?Fellow: ? Isaac Morse M.D. ? Admission: ??03/26/2019 ? Discharge: ??03/27/2019 ? Referring ? MARTI JASSO M.D. ? Physicians: ?Ag Trent M.D. ? Procedures: ?* Coronary Angiography ?* Left Heart Catheterization ?* Coronary Stent Insertion ? History ?NARDA FRAZIER is a 68 year old woman. She has hypertension. The ?patient's smoking status is Never. She has hypercholesterolemia. The ?patient also has a history of cancer. Prior to the initiation of this ?procedure, the patient was designated as ASA Class III. The CSHA clinical ?frailty scale is 3: Managing Well. ? Diagnostic Tests: ?Electrocardiography: ? EKG was assessed by Other. EKG was Abnormal. EKG showed ST Deviation ? >= 0.5 mm. ?Stress or Imaging Studies: ? A stress test with SPECT imaging was performed on 03/08/2019 and was ? Positive with High results. ?Medications Prior to Procedure: ? ASA and Statin. ? Indications for Diagnostic Cath: ?The priority of the diagnostic procedure was Elective. The indication for ?the cath lab tech visit is suspected CAD. Chest pain symptom assessment was: ?Typical Angina. ? Technique: ?A 6 SLFr sheath was inserted in the right radial artery utilizing the ?Seldinger technique. The left coronary artery was injected utilizing a ?5Fr DAMARIS RADIAL catheter. A 5Fr DAMARIS RADIAL catheter was used to inject ?the right coronary artery. Left ventricle was performed with a 5Fr DAMARIS ?RADIAL catheter. Coronary stent insertion was performed and the equipment ?utilized will be described in the intervention summary section. 7,000 ?units of heparin were administered. A total of 200cc of Omnipaque were ?opened, 185cc of Omnipaque were administered and 15cc of Omnipaque were ?wasted. Radiation: Fluoro time was 14.3 minutes, dose area product was ?99,315 mGYcm2 and air kerma was 1,525 mGY. See the case log for ?additional details. ?The patient received the following medications prior to and during the ?procedure: ? Unfractionated Heparin and Clopidogrel. ? Hemodynamics: ?Left Heart Pressures ? Resting: ? Syst Diast ? EDP ?a ?v ? m ?Ao 160 ?? 68 ?98 ?LV 159 ? 26 ?Comments: ??Opening Ao 160/68 (98). ? Coronary Angiography: ?Dominance: Right ?Left Main ? The left main was normal, free of disease. ?Left Anterior Descending ? There was a 98% long segmental stenosis of the proximal segment of ? the left anterior descending artery (LAD). ??The LAD was large. ?Left Circumflex ? There was an 80% long segmental stenosis of the proximal segment of ? the first obtuse marginal branch (OM1) of the left circumflex (LCX). ?The OM1 was moderate in size. ?Right Coronary Artery ? There was a 35% long segmental stenosis of the mid segment of the ? right coronary artery (RCA). ? Indication for Intervention: ?Coronary intervention was indicated for treatment of high risk unstable ?angina. The priority for the procedure was Elective. The NCDR indication ?for the procedure was Other PCI Indication. Syntax Score was Low. ? Intervention Summary: ?Left Anterior Descending Artery ? Proximal 98% ? Stent insertion was performed on the 98% stenosis in the ? proximal segment of the LAD. This was a de esmer lesion. ? According to the ACC/AHA classification system, this lesion ? was a type B2 high risk lesion. Primary prevention of ? restenosis was the indication for stent insertion. This was ? the culprit lesion. A guidewire was placed across this lesion. ? Vessel flow pre intervention was JAMSHID 3. Lesion length was ? 15mm. ? Stent insertion was accomplished through a 6 Fr. EBU 3.0 ? guide. ??The lesion was predilated with a 2.50mm EUPHORA 12 MM ? balloon with a maximum inflation pressure of 14 atmospheres. ? A premounted 3.00 x 18 mm Resolute STEVEN (NABEEL) was deployed ? with a maximum inflation pressure of 22 atmospheres. ? The final outcome was defined as successful. The residual ? stenosis following this intervention was 5%. The final JAMSHID ? flow was 3. ?First Obtuse Marginal Branch of the LCX ? Proximal 80% ? Stent insertion was performed on the 80% stenosis in the ? proximal segment of the OM1. This was a de esmer lesion. This ? lesion was designated a type B2 high risk lesion based on ? ACC/AHA classification system. Primary prevention of ? restenosis was the indication for stent insertion. This was ? the culprit lesion. A guidewire was placed across this lesion. ? Vessel flow pre intervention was JAMSHID 3. Lesion length was ? 12mm. ? Stent insertion was accomplished through a 6 Fr. EBU 3.0 ? guide. ??The lesion was predilated with a 2.00mm EUPHORA 12 MM ? balloon with a maximum inflation pressure of 14 atmospheres. ? A premounted 2.50 x 18 mm Resolute STEVEN ??(NABEEL) was deployed ? with a maximum inflation pressure of 18 atmospheres. ? The final outcome was defined as successful. There was no ? residual stenosis following this intervention. The final JAMSHID ? flow was 3. ? Vascular Access: ?Vascular Access Management: ? Mechanical Compression of the right radial artery access site was ? performed. ? Dual Antiplatelet (DAPT) Recommendations: ?Drug eluting stent (NABEEL) inserted for stable ischemic heart disease ?(SIHD). ?P2Y12 Loading dose Clopidogrel 600 mg PO given in lab. ?Recommend continuing clopidogrel 75 mg PO daily for 6 months. ??Recommend ?continuing aspirin 81 mg unless intolerant. ? 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 Complications/Events: ?The patient had no complications during these procedures. ?The attending physician was present for the entire procedure. ?Dr. Nicholas Diane M.D. was present during the moderate sedation ?intraservice time as documented by the sedation nurse. ??Case time = 01:04. ?Dr. Nicholas Diane M.D. performed the coronary angiography, left heart ?catheterization and stent insertion-coronary. ? Nicholas Diane M.D. ? Electronically Signed by: Nicholas Diane M.D. ? Report Finalized: 03/26/2019 ??12:42 ? Report Last Ammended: 05/27/2019 ??11:25 ? Procedure Note Nicholas Diane MD - 05/27/2019 [facility] Cardiac Catheterization/Intervention Report Patient Name: NARDA FRAZIER Procedure Date: 03/26/2019 A #: [id number] Primary Physician: Nicholas Diane Case #: [id number] File Name: [id number] Catheterization Order Number: [id number] [facility] FinalReport [place], [place] Patient Name: NARDA FRAZIER ID#:[id number] :1950 Procedure Date: March 26, 2019 Case #: [id number] Room: 1 Case Physician: Nicholas Diane M.D. Start: 11:20 Fellow: Isaac Morse M.D. Admission:03/26/2019 Discharge:03/27/2019 Referring MARTI JASSO M.D. Physicians: Ag Trent M.D. Procedures: * Coronary Angiography * Left Heart Catheterization * Coronary Stent Insertion History NARDA FRAZIER is a 68 year old woman. She has hypertension. The patient's smoking status is Never. She has hypercholesterolemia. The patient also has a history of cancer. Prior to the initiation ofthis procedure, the patient was designated as ASA Class III. The CSHAclinical frailty scale is 3: Managing Well. Diagnostic Tests: Electrocardiography: EKG was assessed by Other. EKG was Abnormal. EKG showed STDeviation >= 0.5 mm. Stress or Imaging Studies: A stress test with SPECT imaging was performed on 03/08/2019and was Positive with High results. Medications Prior to Procedure: ASA and Statin. Indications for Diagnostic Cath: The priority of the diagnostic procedure was Elective. Theindication for the cath lab tech visit is suspected CAD. Chest pain symptom assessmentwas: Typical Angina. Technique: A 6 SLFr sheath was inserted in the right radial artery utilizingthe Seldinger technique. The left coronary artery was injected utilizinga 5Fr DAMARIS RADIAL catheter. A 5Fr DAMARIS RADIAL catheter was used toinject the right coronary artery. Left ventricle was performed with a 5FrJACKY RADIAL catheter. Coronary stent insertion was performed and theequipment utilized will be described in the intervention summary section.7,000 units of heparin were administered. A total of 200cc of Omnipaquewere opened, 185cc of Omnipaque were administered and 15cc of Omnipaquewere wasted. Radiation: Fluoro time was 14.3 minutes, dose area productwas 99,315 mGYcm2 and air kerma was 1,525 mGY. See the case log for additional details. The patient received the following medications prior to and duringthe procedure: Unfractionated Heparin and Clopidogrel. Hemodynamics: Left Heart Pressures Resting: Syst Diast EDP a v m Ao 160 68 98 LV 159 26 Comments: Opening Ao 160/68 (98). Coronary Angiography: Dominance: Right Left Main The left main was normal, free of disease. Left Anterior Descending There was a 98% long segmental stenosis of the proximal segmentof the left anterior descending artery (LAD). The LAD was large. Left Circumflex There was an 80% long segmental stenosis of the proximalsegment of the first obtuse marginal branch (OM1) of the left circumflex(LCX). The OM1 was moderate in size. Right Coronary Artery There was a 35% long segmental stenosis of the mid segment ofthe right coronary artery (RCA). Indication for Intervention: Coronary intervention was indicated for treatment of high riskunstable angina. The priority for the procedure was Elective. The NCDRindication for the procedure was Other PCI Indication. Syntax Score was Low. Intervention Summary: Left Anterior Descending Artery Proximal 98% Stent insertion was performed on the 98% stenosis in the proximal segment of the LAD. This was a de esmer lesion. According to the ACC/AHA classification system, thislesion was a type B2 high risk lesion. Primary prevention of restenosis was the indication for stent insertion. Thiswas the culprit lesion. A guidewire was placed across thislesion. Vessel flow pre intervention was JAMSHID 3. Lesion lengthwas 15mm. Stent insertion was accomplished through a 6 Fr. EBU 3.0 guide. The lesion was predilated with a 2.50mm [id number] MM balloon with a maximum inflation pressure of 14atmospheres. A premounted 3.00 x 18 mm Resolute STEVEN (NABEEL) wasdeployed with a maximum inflation pressure of 22 atmospheres. The final outcome was defined as successful. The residual stenosis following this intervention was 5%. The finalTIMI flow was 3. First Obtuse Marginal Branch of the LCX Proximal 80% Stent insertion was performed on the 80% stenosis in the proximal segment of the OM1. This was a de esmer lesion.This lesion was designated a type B2 high risk lesion based on ACC/AHA classification system. Primary prevention of restenosis was the indication for stent insertion. Thiswas the culprit lesion. A guidewire was placed across thislesion. Vessel flow pre intervention was JAMSHID 3. Lesion lengthwas 12mm. Stent insertion was accomplished through a 6 Fr. EBU 3.0 guide. The lesion was predilated with a 2.00mm [id number] MM balloon with a maximum inflation pressure of 14atmospheres. A premounted 2.50 x 18 mm Resolute STEVEN (NABEEL) wasdeployed with a maximum inflation pressure of 18 atmospheres. The final outcome was defined as successful. There was no residual stenosis following this intervention. The finalTIMI flow was 3. Vascular Access: Vascular Access Management: Mechanical Compression of the right radial artery access sitewas performed. Dual Antiplatelet (DAPT) Recommendations: Drug eluting stent (NABEEL) inserted for stable ischemic heart disease (SIHD). P2Y12 Loading dose Clopidogrel 600 mg PO given in lab. Recommend continuing clopidogrel 75 mg PO daily for 6 months.Recommend continuing aspirin 81 mg unless intolerant. 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 The attending physician was present for the entire procedure. Dr. Nicholas Diane M.D. was present during the moderate sedation intraservice time as documented by the sedation nurse. Case time =01:04. Dr. Nicholas Diane M.D. performed the coronary angiography, leftheart catheterization and stent insertion-coronary. Nicholas Diane M.D. Electronically Signed by: Nicholas Diane M.D. Report Finalized: 03/26/2019 12:42 Report Last Ammended: 05/27/2019 11:25 Nicholas Diane MD CARDIAC CATH ORDERAB LES documented in this encounter Visit Diagnoses Diagnosis Screening for cardiovascular condition Screening for other and unspecified cardiovascular conditions Abnormal stress test Other nonspecific abnormal cardiovascular system function study Screening for cardiovascular condition Screening for other and unspecified cardiovascular conditions Abnormal stress test Other nonspecific abnormal cardiovascular system function study documented in this encounter Care Teams Accounting Professional Relationship Specialty Start Date End Date Ag Trent MD [address] [place] [address] PCP - General 02/02/14 documented as of this encounter
--- OUTSIDE RECORDS SUMMARY | 2024-02-17 15:56 | XMS_ITS | Encounter Summary ---
Author Organization [facility] Address [facility] [place] [address] Care Team Providers Care Fur Finisher Tailor Name Role Phone Ag Trent MD Primary Care Provider [phone] Encounter Details Date Type Department Care Team (Latest Contact Info) Description 05/19/2020 4:45 PM EST Ancillary Procedure Radiology Library at [facility] [place] [address] Kendy Su RN Breast mass, left Social History Tobacco Use Types Packs/Day [...] Procedure Name Priority Date/Time Associated Diagnosis Comments REQUEST FOR 2ND READ MAMMO Routine 05/19/2020 4:30 PM EST Breast mass, left documented in this encounter Results * Request for 2nd read Mammo (05/19/2020 4:30 PM EST) Anatomical Region Laterality Modality SO Addenda Addendum by Nurys Chahal MD on 06/21/2020 1:29 PM EDT --------ADDENDUM #1-------- Please note: Imaging from a LEFT breast ultrasound (NOT RIGHT breast ultrasound) are submitted. Thank you for letting us participate in the care of this patient. For questions regarding this report, please contact the number below. ? --------ORIGINAL REPORT -------- INTERPRETATION OF OUTSIDE BREAST IMAGING I have been asked to consult on this patient by Kendy Su APRN because he/she believes a review of this study may change or alter the care of this patient. STUDIES FROM: [facility] DATES: 05/19/2020 mammogram and ultrasound CLINICAL HISTORY: Left breast spiculated hypoechoic mass 12 o'clock, CAT 4, pt would like treatment at [facility]; ? more imaging, ? BX; What Modality is the exam? Mammography; Body Part (please add comments as necessary): Breast; Sending Institution [facility]; Date of exam 20200519; I believe a reinterpretation of this exam may alter care of Patient. Yes. ?? COMPARISONS: 05/14/2018, 05/28/2017, 05/15/2016, 05/04/2015, 11/16/2014, 02/22/2014, 02/02/2014, 01/18/2014, 05/03/2009 FINDINGS: CC and MLO views were obtained of each breast. 2-D direct digital capture, 3-D tomosynthesis and computer aided detection (CAD) were used.. Imaging was performed with a marker applied to the palpable lump in the left upper central posterior breast. The breasts are heterogeneously dense, which may obscure small masses. The palpable lump corresponds to an irregular 1 cm mass at the left upper central posterior breast seen on the MLO view only due to the far posterior location. Stable post surgical distortion is seen in the left upper outer quadrant. The right breast is unremarkable. Right breast ultrasound: Please note: Breast ultrasound is green chain operator dependent. Complete assessment of the breast tissue is not possible through static images or cine loops. Because breast ultrasound is a dynamic process the interpretive value of outside images is limited. There is an irregular nonparallel hypoechoic mass with angular and microlobulated indistinct margins at the left breast 12:00 radian 15 cm from the nipple. This measures 1.1 cm by ultrasound. This has posterior shadowing. IMPRESSION: Suspicious 1.1 cm mass left breast 12:00 radian 15 cm from the nipple. RECOMMENDATION: Ultrasound-guided core biopsy left breast. Our facility will coordinate this with the patient. Left breast BI-RADS Category 5: Highly Suggestive of Malignancy - Appropriate Action Should Be Taken Right breast BI-RADS Category 1: Negative Please note: The interpretation of the [facility] Breast Imaging Radiologist subspecialist may differ from the original radiologist's interpretation. This is usually not due to a deficiency of the original interpreting radiologist, rather due to the greater skill level afforded by sub-specialization in the field and/or reasonable variations in interpretations. If you have a concern regarding the [facility] interpretation you may contact the [facility] Breast Food And Beverage Manager Office at . Thank you for letting us participate in the care of this patient. For questions regarding this report, please contact the number below. ? Impressions 05/22/2020 8:40 AM EST Suspicious 1.1 cm mass left breast 12:00 radian 15 cm from the nipple. RECOMMENDATION: Ultrasound-guided core biopsy left breast. Our facility will coordinate this with the patient. Left breast BI-RADS Category 5: Highly Suggestive of Malignancy - Appropriate Action Should Be Taken Right breast BI-RADS Category 1: Negative Please note: The interpretation of the [facility] Breast Imaging Radiologist subspecialist may differ from the original radiologist's interpretation. This is usually not due to a deficiency of the original interpreting radiologist, rather due to the greater skill level afforded by sub-specialization in the field and/or reasonable variations in interpretations. If you have a concern regarding the [facility] interpretation you may contact the [facility] Breast Food And Beverage Manager Office at . Thank you for letting us participate in the care of this patient. For questions regarding this report, please contact the number below. ? Narrative 05/22/2020 8:40 AM EST INTERPRETATION OF OUTSIDE BREAST IMAGING I have been asked to consult on this patient by Kendy Su APRN because he/she believes a review of this study may change or alter the care of this patient. STUDIES FROM: [facility] DATES: 05/19/2020 mammogram and ultrasound CLINICAL HISTORY: Left breast spiculated hypoechoic mass 12 o'clock, CAT 4, pt would like treatment at [facility]; ? more imaging, ? BX; What Modality is the exam? Mammography; Body Part (please add comments as necessary): Breast; Sending Institution [facility]; Date of exam 20200519; I believe a reinterpretation of this exam may alter care of Patient. Yes. ?? COMPARISONS: 05/14/2018, 05/28/2017, 05/15/2016, 05/04/2015, 11/16/2014, 02/22/2014, 02/02/2014, 01/18/2014, 05/03/2009 FINDINGS: CC and MLO views were obtained of each breast. 2-D direct digital capture, 3-D tomosynthesis and computer aided detection (CAD) were used.. Imaging was performed with a marker applied to the palpable lump in the left upper central posterior breast. The breasts are heterogeneously dense, which may obscure small masses. The palpable lump corresponds to an irregular 1 cm mass at the left upper central posterior breast seen on the MLO view only due to the far posterior location. Stable post surgical distortion is seen in the left upper outer quadrant. The right breast is unremarkable. Right breast ultrasound: Please note: Breast ultrasound is green chain operator dependent. Complete assessment of the breast tissue is not possible through static images or cine loops. Because breast ultrasound is a dynamic process the interpretive value of outside images is limited. There is an irregular nonparallel hypoechoic mass with angular and microlobulated indistinct margins at the left breast 12:00 radian 15 cm from the nipple. This measures 1.1 cm by ultrasound. This has posterior shadowing. Procedure Note Nurys Chahal MD - 05/22/2020 INTERPRETATION OF OUTSIDE BREAST IMAGING I have been asked to consult on this patient by Annamaria Berryuse he/she believes a review of this study may change or alter the care ofthis patient. STUDIES FROM: [facility] DATES: 05/19/2020 mammogram and ultrasound CLINICAL HISTORY: Left breast spiculated hypoechoic mass 12 o'clock, CAT4, pt would like treatment at [facility]; ? more imaging, ? BX; What Modality is theexam? Mammography; Body Part (please add comments as necessary): Breast;Sending Institution [facility]; Date of exam 20200519; I believe a reinterpretation ofthis exam may alter care of Patient. Yes. COMPARISONS: 05/14/2018, 05/28/2017, 05/15/2016, 05/04/2015, 11/16/2014, 02/22/2014,02/02/2014, 01/18/2014, 05/03/2009 FINDINGS: CC and MLO views were obtained of each breast. 2-D direct digital capture,3-D tomosynthesis and computer aided detection (CAD) were used.. Imaging was performed with a marker applied to the palpable lump in the left uppercentral posterior breast. The breasts are heterogeneously dense, which may obscure small masses.The palpable lump corresponds to an irregular 1 cm mass at the left uppercentral posterior breast seen on the MLO view only due to the far posteriorlocation. Stable post surgical distortion is seen in the left upper outer quadrant.The right breast is unremarkable. Right breast ultrasound: Please note: Breast ultrasound is operatordependent. Complete assessment of the breast tissue is not possible through staticimages or cine loops. Because breast ultrasound is a dynamic process theinterpretive value of outside images is limited. There is an irregular nonparallelhypoechoic mass with angular and microlobulated indistinct margins at the left qwcign01:00 radian 15 cm from the nipple. This measures 1.1 cm by ultrasound. Thishas posterior shadowing. IMPRESSION Suspicious 1.1 cm mass left breast 12:00 radian 15 cm from the nipple. RECOMMENDATION: Ultrasound-guided core biopsy left breast. Our facility will coordinatethis with the patient. Left breast BI-RADS Category 5: Highly Suggestive of Malignancy -Appropriate Action Should Be Taken Right breast BI-RADS Category 1: Negative Please note: The interpretation of the [facility] BreastImaging Radiologist subspecialist may differ from the original radiologist's interpretation. This is usually not due to a deficiency of the original interpreting radiologist, rather due to the greater skill level affordedby sub-specialization in the field and/or reasonable variations ininterpretations. If you have a concern regarding the -[facility] interpretation you may contact [facility] Food And Beverage Manager Office at . Thank you for letting us participate in the care of this patient. Forquestions regarding this report, please contact the number below. Kendy Su RN IMG OUTSIDE INTERPRE TATION ORDERABLES documented in this encounter Visit Diagnoses Diagnosis Breast mass, left Lump or mass in breast documented in this encounter Care Teams Fur Finisher Tailor Relationship Specialty Start Date End Date Ag Trent MD [address] [place] [address] [phone] (work) PCP - General 02/02/14 documented as of this encounter
--- OUTSIDE RECORDS SUMMARY | 2024-02-17 15:56 | XMS_ITS | Encounter Summary ---
Author Organization [facility] Address [facility] [address]a [place] [address] Care Team Providers Care Director Enterprise Sales Name Role Phone Ag Trent MD Primary Care Provider [phone] Encounter Details Date Type Department Care Team (Late st Contact Info) Description 05/14/2018 2:00 PM EST Office [place] [address] Susan Jaimes, RO[address] [employer] [address] History of breast cancer Social History Tobacco Use Types Packs/Day Years Used Date Smoking Tobacco: Never Smokeless Tobacco: Never Alcohol Use Standard Drinks/Week Comments No 0 (1 standard drink = 0.6 oz pur e alcohol) Sex and Gender Information Value Date Recorded Sex Assigned at Not on file Gender Identity Not on file Sexual Orientation Not on file documented as of this encounter Progress Notes * Susan Jaimes, RAJ - 05/14/2018 2:00 PM EST Narda Rivera is a 67 year-old pt of Dr Cohen who returns after left breast partial mastectomy and left axillary sentinel node excision on February 22, 2014 on the supine MRI arm of trial D0928. 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 She was ER positive and HER2 negative. Two of two sentinel nodes were positive for metastases. She was treated with adjuvant chemo, then XRT. She was on Tamoxifen but stopped after developing severe depression which she was hospitalized for.Feeling better and will speak with oncology in the future about re starting solano.. She now returns for a check. She has not felt any breast masses and denies symptoms of metastases. On physical exam there are no right or left breast masses. There is no axillary adenopathy on either side. She has full ROM of the left arm and no arm edema. Bilateral mammo from today:pending Impression: No evidence of breast cancer recurrence. Plan:RTC in 1 year with a bilateral mammogram. I informed Narda that I would be retiring in January and that her next surgical appointment will be with a new provider. Comprehensive Breast Program Surgery Follow Up Note Range of motion of surgical arm complete Lymphedema present No Cosmesis-surgeon reported Cosmesis-patient reported Excellent Excellent Local or regional recurrence No Contralateral cancer present No Distant recurrence present No Date of last follow up 05/14/18 documented in this encounter Plan of Treatment Not on file documented as of this encounter Visit Diagnoses Diagnosis History of breast cancer Personal history of malignant neoplasm of breast documented in this encounter Care Teams Director Enterprise Sales Relationship Specialty Start Date End Date Ag Trent MD [address] [place] [address] PCP - General 02/02/14 documented as of this encounter
--- OUTSIDE RECORDS SUMMARY | 2024-02-17 15:56 | XMS_ITS | Encounter Summary ---
Author Organization [facility] Address [address] [place] [address] Care Team Providers Care Harbor Pilot Name Role Phone Latoya Quintanilla MD Primary Care Provider Unavailabl e Encounter Details Date Type Department Care Team (Late st Contact Info) Description 05/31/2020 Lab Requisition [facility] Pathology & Laboratory Medicine - [address] [address] Radha Agudelo, DO [address] [place] [address] Malignant neoplasm of unspecified site of unspecified female breast (HCC-CMS); Unspecified lump in unspecified breast Social History Tobacco Use Types Packs/Day [...] Date/Time Associated Diagnosis Comments SURGICAL PATHOLOGY Today 05/30/2020 13 :50 EST Malignant neoplasm of unspecified site of unspecified female breast (HCC-CMS) Unspecified lump in unspecified breast documented in this encounter Results * SURGICAL PATHOLOGY (05/30/2020 13:50 EST) Final Diagnosis A. BREAST, LEFT, EXCISION: - Benign myofibroblastic proliferation, favor reactive scar. - See Comment 06/02/2020 14:54 EST [facility] Diagnosis Comment Glass Cutting Machine Operator slides of this case were reviewed at the intradepartmental consultation conference. Immunoperoxidase stains were performed on this case to further characterize the lesion. ANTIBODY(CLONE)(BLO CK):RESULT CD34 (QBEnd/10, Leica) (A3): Negative CK7 (RN7, Leica) (A3): Negative aSMA (alpha Smooth Muscle Actin (asm-1, Leica) (A3): Positive Beta Catenin (14, Elkins) (A3): Negative (non-specific) Stat-6 (EP325, Cell Values of n) (A3): Negative The overall findings likely represent a benign nodular proliferative scar. Diagnostic features of malignancy are not identified. NOTE: One or more of the reagents used in immunoperoxidase testing in this case may not have been cleared or approved by the U.S. Food and Drug Administration (FDA). The FDA has determined that such clearance or approval is not necessary. These tests are used for clinical purposes. They should not be regarded as investigational or for research. These reagents' performance characteristics have been determined by [facility] and/or by the referring laboratory. The positive and negative controls worked appropriately. If immunoperoxidase staining has been performed on alcohol fixed cytology specimens, which has not been fully validated, the assays should be interpreted with caution and correlated with clinical data. This laboratory is certified under the Clinical Laboratory Improvement Amendments of 1988 (CLIA-88) as qualified to perform high complexity clinical laboratory testing. 06/02/2020 14:54 [facility] Attestation There was significant resident/fellow involvement in the diagnostic evaluation of this case. By the signature below, the attending physician certifies that they have personally conducted a gross and/or microscopic examination of the described specimens and rendered or confirmed the above diagnosis. 06/02/2020 14:54 [facility] at 1454 Clinical History L breast cancer; prior breast CA left breast 06/02/2020 14:54 [facility] Gross Description A. Received in formalin labelled with proper patient identification (initials B, S) and left breast mass is a 3.0 x 2.0 x 1.5 cm irregular fragment of lobulated yellow adipose tissue weighing 3.1 g. The outer surface is inked blue. Sectioning reveals a well-circumscribed, firm pink-white mass (1.2 x 0.8 x 0.7 cm) located along 1 side of the specimen. This mass abuts the blue inked outer surface. The remaining cut surfaces are lobulated and doll-yellow. No additional lesions identified. Also present within the container is a separate portion of lobulated yellow adipose tissue (0.20 g, 1.5 x 1.0 x 0.5 cm). The outer surface is inked. The specimen is trisected to reveal lobulated, yellow cut surfaces. No firm areas identified. The specimen is entirely submitted as follows: BLOCK CATES A1- 1 end of larger tissue, perpendicular A2-A5- 5 central sections of larger tissue A6- opposite end of larger tissue, perpendicular A7- smaller tissue, trisected Time removed from patient: 13:50 hours 05/30/2020 Time placed in formalin: 13:50 hours 05/30/2020 Time out of formalin: 19:00 hours 05/31/2020 KATERIN RAZA(ASCP) 05/31/2020 10:59 06/02/2020 14:54 EST [facility] Resident/Fell ow: Taylor Leong DO 06/02/2020 14:54 EST [facility] Performing Lab [facility] 06/02/2020 14:54 EST [facility] Scanned Images 06/02/2020 14:54 EST [facility] Tissue ENTIRE LEFT BREAST / Unknown 05/30/2020 13:50 EST 05/31/2020 8:50 EST us Radha Agudelo DO PATHOLOGY ORDERABLES Final Re sult [facility] [address] [place] [address] documented in this encounter Visit Diagnoses Diagnosis Malignant neoplasm of unspecified site of unspecified female breast (HCC-CMS) Unspecified lump in unspecified breast documented in this encounter Care Teams Harbor Pilot Relationship Specialty Start Date End Date Latoya Quintanilla MD PCP - General 03/16/10 01/19/24 documented as of this encounter
--- OUTSIDE RECORDS SUMMARY | 2024-02-17 15:56 | XMS_ITS | Encounter Summary ---
Author Organization [facility] Address [facility] [place] [address] Care Team Providers Care Finger Buffs Assembler Name Role Phone Ag Trent MD Primary Care Provider [phone] Reason for Visit * Reason Comments Follow-up Encounter Details Date Type Department Care Team (Late st Contact Info) Description 05/28/2017 11:15 AM EST Office Visit H[place]ology [place] [phone] Shane Copeland MD [facility] [place] [address] Malignant neoplasm of left breast in female, [...] Taken Comments Blood Pressure - - Pulse - - Temperature 36.2 ??C (97.1 ??F) 05/28/2017 11:[address] Respiratory Rate - - Oxygen Saturation - - Inhaled Oxygen Concentration - - Weight - - Height - - Body Mass Index - - documented in this encounter Progress Notes * Shane Copeland MD - 05/28/2017 11:15 AM EST Narda Rivera is a 66 year-old woman who returns after left breast partial mastectomy [...] treated with adjuvant chemo, then XRT. She is on Tamoxifen. She now returns for a check. She has not felt any breast masses and denies symptoms of metastases. On physical exam there are no right or left breast masses. There is no axillary adenopathy on either side. She has full ROM of the left arm and no arm edema. Bilateral mammo from today looks benign to my eye. Impression: No evidence of breast cancer recurrence. Plan: I will plan to see her back in 1 year with a bilateral mammogram. Comprehensive Breast Program Surgery Follow Up Note Range of motion of surgical arm complete Lymphedema present No Cosmesis-surgeon reported Cosmesis-patient reported Excellent Excellent Local or regional recurrence No Contralateral cancer present No Distant recurrence present No Date of last follow up 05/28/17 SHANE COPELAND MD 05/28/2017 documented in this encounter Plan of Treatment Not on file documented as of this encounter Results * Mammo Screening Cad and Gualberto Bilateral (05/14/2018 12:59 PM EST) Anatomical Region [...] Center. BIRADS CATEGORY 2: BENIGN FINDINGS [employer] and The Society of [...] earlier screening and breast MRI are appropriate. Shane Copeland MD IMG MAMMO ORDERABLES documented in this encounter Visit Diagnoses Diagnosis Malignant neoplasm of left breast in female, estrogen receptor positive, unspecified site of breast Malignant neoplasm of left breast in female, estrogen receptor positive, unspecified site of breast documented in this encounter Care Teams Finger Buffs Assembler Relationship Specialty Start Date End Date Ag Trent MD [address] [place] [address] PCP - General 02/02/14 documented as of this encounter
--- OUTSIDE RECORDS SUMMARY | 2024-02-17 15:56 | XMS_ITS | Encounter Summary ---
Author Organization [facility] Address [facility] [place] [place] [address] Care Team Providers Care Box Attacher Name Role Phone Ag Trent MD Primary Care Provider [phone] Encounter Details Date Type Department Care Team (Late st Contact Info) Description 04/25/2020 3:30 PM EST Office Visit Hematology/Oncology at [address] [phone] Kirill Saavedra MD [facility] HEMATOLOGY [place] [address] Kendy Su, RN Malignant neoplasm of left breast in female, estrogen receptor positive, unspecified site of breast; Malignant neoplasm of lower-outer quadrant of left breast of female, estrogen receptor positive Social History Tobacco Use Types Packs/Day Years [...] Mass Index 35.32 04/25/2020 3:16 PM EST documented in this encounter Progress Notes * Kendy Su Cleo, CHEESE COOKER - 04/25/2020 3:30 PM EST Subjective: Patient ID: Narda Rivera is a 69 y.o. female. Diagnosis: Left 3.5 cm IDC with lobular features, lymphovascular invasion present, SLN 2/2 positive, ER+/ND+, Her-2 unaplified. 06/2014 switched from Arimidex to Femara 01/2016--switched to tamoxifen due to increased arthralgias 12/2017-- stopped tamoxifen due to SE of severe depression with suicidal ideation ?? Chemotherapy and Supportive Care Treatment History BREAST CANCER NOTES 09/07/2015 Method of Cancer Detection abnormal mammogram of the left breast 12/2013 Menopausal Status at Diagnosis post-menopausal Date of Diagnostic Biopsy 02/02/2014 Local Surgery Lumpectomy done by Dr Cohen at [facility] Axillary Management [place] nodes alone--2+ of 2 sentinel nodes removed. [...] High grade Margin negative ER--estrogen receptor positive ND--progesterone receptor positive HER-2/FISH negative Adjuvant Chemotherapy Start [...] malignancy 05/14/2018- Mammogram--No mammographic evidence of malignancy ?? HPI: Ms. Narda Rivera is 67 y.o. female Referred to us for consultation by Dr. Cohen on new diagnosis of breast cancer. She initially presented with a mass in her upper outer left breast with calcifications on a screening mammogram in December 2013.The main mass was biopsied showing infiltrating ductal and lobular carcinoma, ER positive, [id number]. MRI was then performed that showed the mass with multiple small satellites around it. Mrs. Rivera underwent left partial mastectomy and sentinel lymph node biopsy on February 23, 2014. Postoperative course was uneventful. she completed radiation on (taken from Stephany Guaadlupe's note 04/10/18). Interval History(04/25/20): Narda returns to the [facility] today for breast cancer followup. We haven't seen Narda since December 2018. Since seeing her last she tells me she had 2 stents done. She is complaining today of an area of pain in her upper left CW right at the edge of breast tissue. She saw her occupational therapist home based and was told it is not cardiac. She complains of fatigue. Denies any loss of appetite, cough, night sweats, any other lumps or bumps. She hasn't been back to see us because everything was normal so she didn't think it was necessary. She has not taken any hormonal therapy since 2018 after a severe bout of depression. No other focal complaints today. 03/18- PCI x 2 PMH, PSH, FH, and SH: Except as mentioned in the interim history, no interval changes since last visit. Review of Systems Constitutional: Positive for fatigue. HENT: Negative. Eyes: Negative. Respiratory: Negative. Cardiovascular: Positive for leg swelling. Gastrointestinal: Negative. Endocrine: Negative. Genitourinary: Negative. Musculoskeletal: Negative. Skin: Negative. Allergic/Immunologic: Negative. Neurological: Negative. Hematological: Negative. Psychiatric/Behavioral: Negative. Objective: Physical Exam Vitals signs reviewed. Constitutional: Appearance: She is well-developed. HENT: Head: Normocephalic and atraumatic. Nose: Nose normal. Eyes: Conjunctiva/sclera: Conjunctivae normal. Neck: Musculoskeletal: Normal range of motion and neck supple. Cardiovascular: Rate and Rhythm: Normal rate and regular rhythm. Pulmonary: Effort: Pulmonary effort is normal. Breath sounds: Normal breath sounds. Abdominal: General: Bowel sounds are normal. Palpations: Abdomen is soft. Musculoskeletal: Normal range of motion. Skin: General: Skin is warm and dry. Neurological: Mental Status: She is alert and oriented to person, place, and time. Psychiatric: Behavior: Behavior normal. Breast_x___ no nipple discharge or masses either breast, no dryness, no erythema, no tenderness, mild left breast swelling, no lymphedema of arm Treated site: ____Right or x___Left, ___Breast or Chest wall Telangectasias: _x__None, ____Few; Moderate; Many and confluent Hypopigmentation: _x__None; ____Slight or localized; ____Marked or generalized Hyperpigmentation: ___None; ____Slight or localized; ____Marked or generalized Fibrosis: None; __x___Increased density; ____Marked increased density + retraction; ____ Very marked Dry skin: ___None; ____Asymptomatic; symptomatic; Interferes with ADL Cosmetic Result: _x__ Excellent; Good;____ Fair; ____Poor Firm area of tissue approx 20 cm from nipple on upper chest around 12oclock when patient is sitting. Vitals: BP 151/62 (Patient Position: Sitting) Pulse 52 Temp 36.6 ??C (97.9 ??F) (Temporal) Resp 18 Ht 156.2 cm (5' 1.5) Wt 86.2 kg (190 lb) SpO2 99% BMI 35.32 kg/m?? No labs to review today Imagin06/09/19- Screening mammogram- Impression- 1. No significant interval change with no specific features of malignancy noted. Benign findings. Breast Density- Cat C Heterogeneously dense Assessment and Plan: Narda Rivera is a torri 69 y.o. female.breast ca, L, IDC w/lobular features, high gr, ER+ND+, Fpm4mrm-, s/p lumpectomy & SNB, pT2 pN1a, stage II, +extensive LVI. S/p adjuvant chemo with ddAC and taxol followed by radiation therapy. She was treated with 60.4 Gy which was completed on 10/18/2014. She came off tamoxifen for hormone therapy due to SE of severe depression requiring hospitalization. . She had a mammogram 05/14/2018 which was negative for recurrence. There is JACINDA. She had a repeatmammogram in May 2019 which was negative for malignancy. We haven't seen Narda since December of 2018. She comes today for follow up and is concerned about an area of pain in her left chest. Last mammogram in May of 2019 was negative. She has been having the pain for a month or so now and it stays right in the same place. She states her occupational therapist home based told her it was not cardiac. There is an area of firm tissue at the site. Will get diagnostic mammogramand ultrasound. Since she last saw us she had PCI to both OM and LAD lesions in February of 2019. 1. Continue breast cancer surveillance yearly with mammograms and CBE. 2. Diagnostic mammogram on left with ultrasound- patient has area of concern. 3.4. RTC in 1 year( she refuses to come any sooner) for labs, repeat evaluation and CBE. If mammogram or ultrasound is abnormal she will be contacted. Narda voiced understanding of the plan and was given an opportunity to ask questions which I answered to the best of my ability. Narda understands he can call the clinic between visits with any questions/concerns or new symptoms. Kendy Su MSN, CHEESE COOKER, AOCNP Medical Oncology Over 30 minutes was spent in counseling and coordination of care. documented in this encounter Plan of Treatment Not on file documented as of this encounter Visit Diagnoses Diagnosis Malignant neoplasm of left breast in female, estrogen receptor positive, unspecified site of breast Malignant neoplasm of lower-outer quadrant of left breast of female, estrogen receptor positive documented in this encounter Care Teams Box Attacher Relationship Specialty Start Date End Date Ag Trent MD [address] [place] [address] PCP - General 02/02/14 documented as of this encounter
--- OUTSIDE RECORDS SUMMARY | 2024-02-17 15:56 | XMS_ITS ---
Author Organization [facility] Address [facility] [place] [address] Care Team Providers Care Foreign Trade Teacher Name Role Phone Ag Trent MD Primary Care Provider [phone] Active Problems Problem Noted Date Diagnosed Date CAD (coronary artery disease) 03/26/2019 Hypothyroidism 10/13/2015 Malignant neoplasm of left female breast (BREAST CANCER) 02/10/2014 Overview (12/16/2014): Diagnosis: Left 3.5 cm IDC with lobular features, lymphovascular invasion present, SLN 2/2 positive, ER+/CO+, Her-2 unaplified, T2,at least N1a, Mx Treatment:s/p [...] completed weekly Taxol XRT 08/30/14 - 10/18/14 Current Oncology Plans No current plan information found. Past Plans ADULT TREATMENT Plan Name Start Date Discontinue Date Treatment Medications Discontinue Reason Plan Provider Cycles BCN AMB ONC BREAST CANCER - PACLitaxel 015 03/13/2015 PACLitaxeL (Taxol) in Non-PVC sodium chloride 0.9% 250 mL infusion Therapy Complete Kirill Saavedra MD 4 of 4 cycles started BC AMB ONC BREAST CANCER - PACLitaxel 015 05/24/2014 PACLitaxeL (Taxol) in Non-PVC sodium chloride 0.9% 250 mL infusion Future Plan Deleted Kirill Saavedra MD [facility] not [facility] - DOXOrubicin / CYCLOPHOSPHAMIDE (DOSE DENSE) 201305/24/2014 cycloPHOSphamide (Cytoxan) in sodium chloride 0.9% 250 mL infusionDOXOrubicin (ADRIAMYCIN) Therapy Complete Kirill Saavedra MD 4 of 4 cycles completed Radiation Treatments * No radiation treatments are documented for this patient in [facility]. Treatments may have been administered in another system. Lifetime Dose Tracking * Chemical Lifetime Dose Automatic Entry Manual Entr y doxorubicin 241.55 mg/m2 (472.8 mg) 241.55 mg/m2 (472 .8 mg) 0 mg/m2 (0 mg) Treatment Summaries Malignant neoplasm of left female breast* Cancer Treatment Summary Provided by Haley Robles on 11/30/15 General Information Patient name Narda Rivera (home) Date of 1950 Support contact Wanda Hoangder (friend) Care Team Medical Oncologist Dr Kirill Saavedra Surgeon Dr Ibrahima Cohen Radiation Oncologist Dr Clau Alfonso Primary Care Physician AG TRENT Treatment Summary Chemotherapy and Supportive Care Treatment History BREAST CANCER NOTES 09/07/2015 Method of Cancer Detection abnormal mammogram of the left breast 12/2013 Menopausal Status at Diagnosis post-menopausal Date of Diagnostic Biopsy 02/02/2014 Local Surgery Lumpect[facility] done by Dr [facility] at [facility] Axillary Management [place] nodes alone--2+ of 2 sentinel nodes removed. [...] High grade Margin negative ER--estrogen receptor positive CO--progesterone receptor positive HER-2/FISH negative Adjuvant Chemotherapy Start Date 03/29/2014 Adjuvant Chemotherapy Regimen Dose dense adriamycin (also called doxorubicin) and cytoxan (AC) for four - paclitaxel (taxol) Adjuvant Chemotherapy-date completed 08/09/2014 Radiation therapy Treatment dates: 08/30/2014 to 10/18/2014 Total dose of 60.4 Gy which included a boost to the surgical bed. SCV nodes were also treated ECHO 03/15/2014---64% (normal) First Adjuvant Endocrine Therapy Anatrazole after radiation and June 2014 switched to Femara DEXA (bone density test) 01/2015--DEXA T score of -1.0 Surveillance mammogram 05/04/2015--benign 05/15/2016 mammogram--no evidence of malignancy Lifetime Dose Tracking: ??? doxorubicin: 241.55 mg/m2 (472.8 mg) = 60.39 % of the maximum lifetime dose of 400 mg/m2 Follow-up and Survivorship Care How Frequent? Coordinating Provider Medical Oncology visits Every 6 months Medical oncology Radiation oncology Every six months year one then annually Radiation oncology Lab tests CBC CMP Medical oncology Imaging exams mammogram Surgery at [facility] Monitor for ongoing toxicities: Advance Directive: completed Possible late and intermediate effects of treatment: Tamoxifen side effect: Tamoxifen side effects might include a 0.2% per year increase in his risk ofdeveloping a blood clot in the leg or lung,as well as hot flashes, night sweats, mood swings, difficulty sleeping, change in mood, night time leg cramping and an increased risk of developing cataracts. Skin changes at the site of radiation. Late effects include change in pigmentation, skin thickening, retraction and fibrosis (scar tissue) and formation of telangiectasias (small red lines on skin--this can occur several years after completion of treatment and is cosmetic only) Lymphedema of the breast and arm are caused by lymph node dissection and fibrosis (scars) from radiation therapy and surgery. Report any swelling to your cancer team. You may require physical therapyfor manual lymphatic drainage and/or compression sleeve. Peripheral neuropathy is characterized by numbness, tingling, pain, temperature sensitivity either cold or hot. This is not expected in your case but if present this should diminish over time. It maynot completely resolve and may require further assessment and treatment. Discuss this with your cancer team. Bone Health: You are post menopausal and have some bone mass loss. It is recommended that you have a bone density exam every two years. Take calcium 1200mg a day (or foods rich in calcium) and vitamin D3 2000 IU a day. Weight bearing exercise can also reduce bone mass loss. Pain: Discuss any problems with persistent pain with your cancer team. Fatigue: Cancer related fatigue is a distressing persistent, subjective sense of physical, emotional, and/or cognitive tiredness or exhaustion related to cancer or cancer treatment that is not proportional to recent activity and interferes with usual functioning. This is a common issue for individuals undergoing cancer treatment and for cancer survivors sometimes for months and years following janice gnosis and treatment. The time course of fatigue is unique to each person. In most cases mild to moderate fatigue will resolve within a year. If it persists longer than this time or if fatigue worsens discuss this issue with your cancer team for further evaluation. Cognitive function change: Growing evidence supports the validity that there may be memory changes with cancer treatment. Cancer associated cognitive change (chemo-brain) is not a progressive neurological disorder like progressive dementia. There are resources for testing. Use of memory aides like notebooks, and planners, keeping items in the same place, using reminder notes can be helpful. Avoidmulti-tasking and minimize distractions especially at work. Limit the use of alcohol and other substances that can affect cognition. Exercise, adequate sleep and relaxation and stress management can be helpful. Please discuss your concerns with your cancer team. Anxiety depression: Survivors of cancer treatment are at high risk for anxiety and depression due to multiple stressors, feeling vulnerable and the many challenges that you have faced and continue toface. Fear of recurrence is normal. Let your providers know if you have any of these symptoms--frequent feelings of being nervous, restless or worried or fearful, trouble sleeping, difficulty concentrating, less interest or enjoyment of usual activities, feeling sad or depressed, difficulty performing your usual activities. Cardiac Toxicities: As part of your cancer treatments you were given medication and/or radiation therapy that potentially can have effects on your heart. It is recommended that you have a thorough clinical screening for your heart. This workup could include an ECHO. If abnormal or symptomatic a referral to cardiology should be made. If you have received radiation therapy to the chest you should be screened for heart disease and have a repeat ECHO five to ten years after completion of treatment PCP follow up: Yearly exams for health maintenance and preventative care. Yearly gynecologic exams for women's health care with either director of retail analytics or primary care provider. LIFE STYLE: Exercise: Many studies now show that women who exercise and who do not gain weight reduce their risk of breast cancer recurrence. Engage in at least 20-30 minutes of moderate intensity activity on most days of the week. Include strength training exercises at least two days a week. Alcohol: Minimize alcohol intake to no more than one drink a day. Nutrition: Follow the [place] [employer] Guidelines that include the following: limit consumption of processed meat and red meat; eat at least 2.5 cups of vegetables and fruits daily; choose whole grains instead of refined grain products. High fiber and low fat diet is advised. Smoking: smoking increases the risk of breast cancer and other cancers Sunscreen should be used prolonged sun exposure, ie longer than 15 minutes. Screening: Colonoscopy at age 50, pelvic exams at the discretion of your primary doctor un (if you have any vaginal bleeding you need to see your doctor) , bone density when menopausal, fasting lipidprofile as indicated and at the discretion of you primary care provider and all other age appropriate screenings that need to be done yearly Vaccinations: Immunization of inactivated vaccines is recommended for cancer survivors. This includes flu vaccines yearly. Pneumonia vaccine is recommended per CDC guidelines for pneumonia vaccine--primary care provider would administer this. Potential signs of recurrence: Any symptom lasting more than 2 weeks and not improving--persistent pain, cough, shortness of breath, headache. Any change in skin at treatment site from post treatmentbaseline or new lump or nipple discharge. Resources: Helpful websites www. cancer.gov -- National Cancer Maben www. nccn.org -- National Comprehensive Cancer Network www. canceradvocacy. org --National Coalition for Cancer Survivorship www. livestrong. org -- [employer] Survivor Care www. acscsn.org -- Cancer Survivors Network Haley Robles --[phone] Survivorship care provider contacts MANAGER UTILIZATION: Haley Robles Resolved Problems Problem Noted Date Diagnosed Date Resolved Date Mucositis 06/02/2014 12/16/2014 Other specified prophylactic or treatment measure 03/29/2014 12/16/2014
--- OUTSIDE RECORDS SUMMARY | 2024-02-17 15:56 | XMS_ITS | Encounter Summary ---
Author Organization [facility] Address [address] [place] [address] Care Team Providers Care Med Specialist Name Role Phone Unavailable Primary Care Provider Unavailabl e Encounter Details Date Type Department Care Team (Late st Contact Info) Description 11/03/2007 Before PRISM Converted Visit ([place]) [address] [address] Latoya Quintanilla MD Social History Tobacco Use Types Packs/Day Years [...] Procedure Name Priority Date/Time Associated Diagnosis Comments CYTOPATHOLOGY Routine 11/03/2007 0:00 EDT documented in this encounter Results * CYTOPATHOLOGY (11/03/2007 0:00 EDT) Pathology Report: CYTOPATHOLOGY REPORT ? Reports generated via electronic interface contain original data; ? however they are lacking the format of the original report. ? Caution should be taken when reading/interpreti ng unformatted reports. ? Name: ? FRAZIER, NARDA ? Accession #: ? [id number] ? : ? 1950 (Age: 57) ??F ?Collect Date: ? 11/03/2007 ? Location: ? [facility] ? Receive Date: ? 11/04/2007 ? Provider: ?LATOYA D FINE MD ? Copy to: ? Specimen/Source: ?ThinPrep Pap Test, Endocervix, processed on Cytyc ? ThinPrep Imaging System, with manual evaluation ? Last Menstrual Period: ? NA ? Other: ? HPVA - HPV testing requested if ASC-US on the current ThinPrep Pap test. ? SPECIMEN ADEQUACY ? Satisfactory for Evaluation ? - transformation zone component present ? GENERAL CATEGORIZATION ? Negative for Intraepithelial Lesion or Malignancy ? Document reviewed and electronically signed by: ? Lillie Janae, CT(ASCP) ? Report Date: ??11/05/2007 14:42 ? End of Report ? [facility] 11/03/2007 11/04/2007 us Latoya Quintanilla MD PATHOLOGY ORDERABLES Final Resul t [facility] [address] [place] [address] documented in this encounter Visit Diagnoses Not on filedocumented in this encounter
--- OUTSIDE RECORDS SUMMARY | 2024-02-17 15:56 | XMS_ITS | Encounter Summary ---
Author Organization [facility] Address [facility] [place] [address] Care Team Providers Care Litigation Secretary Name Role Phone Ag Trent MD Primary Care Provider [phone] Encounter Details Date Type Department Care Team (Late st Contact Info) Description 04/07/2019 Telephone [place] [phone] Gaby Guadalupe Social History Tobacco Use Types Packs/Day Years [...] encounter Miscellaneous Notes * Telephone Encounter - Gaby Hudson - 04/07/2019 3:48 PM EST Just called Narda to schedule her annual mammogram and breast exam with a general surgery [employer]. Shedeclined and will be following up at her local hospital. documented in this encounter Plan of Treatment Not on file documented as of this encounter Visit Diagnoses Not on filedocumented in this encounter Care Teams Litigation Secretary Relationship Specialty Start Date End Date Ag Trent MD [address] [place] [address] PCP - General 02/02/14 documented as of this encounter
--- OUTSIDE RECORDS SUMMARY | 2024-02-17 15:56 | XMS_ITS | Encounter Summary ---
Author Organization [facility] [place] [address] Care Team Providers Care Special Needs Librarian Name Role Phone Ag Trent MD Primary Care Provider Encounter Details Date Type Department Care Team (Late st Contact Info) Description 08/20/2019 Telephone Hematology/Oncology at [address] [phone] Monika Stephenson Social History Tobacco [...] on filedocumented in this encounter Care Teams Special Needs Librarian Relationship Specialty Start Date End Date Ag Trent MD [address] [place] [address] PCP - General 02/02/14 documented as of this encounter
--- OUTSIDE RECORDS SUMMARY | 2024-02-17 15:56 | XMS_ITS | Encounter Summary ---
Author Organization [facility] Address [address] [place] [address] Care Team Providers Care Marketing Support Specialist Name Role Phone Latoya Quintanilla MD Primary Care Provider Unavailabl e Encounter Details Date Type Department Care Team (Late st Contact Info) Description 03/03/2015 Results Only [facility] [phone] Mayelin Prado MD [facility] [facility] [address] [place], [place] [id number] Social History Tobacco Use Types Packs/Day Years [...] Priority Date/Time Associated Diagnosis Comments SURGICAL PATHOLOGY Routine 03/03/2015 8:57 EST documented in this encounter Results * SURGICAL PATHOLOGY (03/03/2015 8:57 EST) Pathology Report: SURGICAL PATHOLOGY REPORT Reports generated via electronic interface contain original data; however they are lacking the format of the original report. Caution should be taken when reading/interpret ing unformatted reports. Name: ? NARDA FRAZIER ? Accession #: ? [id number] ? : ? 1950 (Age: 64) ??F ? Collect Date: ? 03/03/2015 ? Location: ? [facility] ? Receive Date: ? 03/06/2015 ? Provider: MAYELIN PRADO MD Copy to: ADRIAN VAUGHN MD ? Final Pathologic Diagnosis: SKIN OF CHEST, RIGHT, EXCISION: - Hypertrophic scar. ??See comment. Comment: Within the excision specimen is hypertrophic scar formation with associated hemosiderin deposition and inflammation, including foreign body type giant cells. ??Review of our clinical records does not reveal a prior biopsy from this site. Clinical correlation is recommended. ??(Dr. Shi)/[facility] Document reviewed and electronically signed by: JT SHI MD Report ??Date: 03/07/2015 13:55 By the signature above, the attending physician certifies that he/she has personally conducted a gross and/or microscopic examination of the described specimens and rendered or confirmed the above diagnosis. Specimen(s) Received: Skin and scar tissue, right chest Clinical History: Painful scar (right), hx of breast Ca on left; clinical diagnosis code: L90.5, Z85.3 Gross Description: ? Received in formalin labelled with proper patient identification (initials B, S) and right chest is an unoriented elliptical excision of pink-doll wrinkled skin (2.3 x 1.1 cm and is excised to a depth of 0.8 cm). The margins are inked blue. The specimen is serially sectioned and entirely submitted as 1-3 central sections and 4 tips, reverse en face. Haile Frazier 03/06/2015 9:55 AM End of Report [facility] 03/03/2015 8:57 EST 03/06/2015 8:57 EST us Mayelin Prado MD PATHOLOGY ORDERABLES Fin al Result [facility] [address] [place] [address] documented in this encounter Visit Diagnoses Not on filedocumented in this encounter Care Teams Marketing Support Specialist Relationship Specialty Start Date End Date Latoya Quintanilla MD PCP - General 03/16/10 01/19/24 documented as of this encounter
--- OUTSIDE RECORDS SUMMARY | 2024-02-17 15:56 | XMS_ITS | Encounter Summary ---
Author Organization [facility] Address [address] [place] [id number] Care Team Providers Care Cardroom Plastic Card Grader Name Role Phone Unknown, Provider Primary Care Provider Unava ilable Encounter Details Date Type Department Care Team (Late st Contact Info) Description 03/14/2010 Results Only [facility] - [facility] ([facility] [address], [place] [phone] Pradip Diaz MD [address], [place] [phone] Social History Tobacco Use Types Packs/Day Years [...] Date/Time Associated Diagnosis Comments SURGICAL PATHOLOGY Routine 03/14/2010 0:00 EST documented in this encounter Results * SURGICAL PATHOLOGY (03/14/2010 0:00 EST) Pathology Report: SURGICAL PATHOLOGY REPORT ? Reports generated via electronic interface contain original data; ? however they are lacking the format of the original report. ? Caution should be taken when reading/interpreti ng unformatted reports. ? Name: ? FRAZIER, NARDA ? Accession #: ? [id number] ? : ? 1950 (Age: 59) ??F ? Collect Date: ? 03/14/2010 ? Location: ? [facility] ? Receive Date: ? 03/14/2010 ? Provider: PRADIP DIAZ MD ? Copy to: ALEK FINE MD ? Final Pathologic Diagnosis: ? A. ?Colon, cecum, polyps, biopsies: ? 1. ?Polypoid colonic mucosa with hyperplastic features. ??See comment. ?? B. ?Colon, transverse, polyp, biopsy: ? 1. ?Hyperplastic polyp. ? C. ?Colon, descending, polyps, biopsies: ? 1. ?Fragments of hyperplastic polyps. ? D. ?Colon, sigmoid, polyp, biopsy: ? 1. ?Hyperplastic polyp. ? Comment: ? Deeper levels have been examined on specimens (A), (C), and (D). ??(Dr. ? Threlkeld)/ljn ? Document reviewed and electronically signed by: ? ALESSANDRO L QUISPE MD ? Report ??Date: 03/19/2010 17:55 ? By the signature above, the attending physician certifies that he/she has ? personally conducted a gross and/or microscopic examination of the described ? specimens and rendered or confirmed the above diagnosis. ? Specimen(s) Received: ? A. ?Cecal polyps x2 ? B. ? Transverse colon polyp ? C. ? Descending colon polyps x2 ? D. ? Sigmoid polyp ? Clinical History: ? H/O colon polyp ? Gross Description: ? Received in [facility] fixative labelled Frazier, Narda and cecal polyps ?? x2 are five pink-doll, irregular soft tissues ranging from 0.2 x 0.1 x 0.1 cm to 0.3 x 0.2 x 0.1 cm, submitted in toto in (A1) and (A2). ? Received in [facility] fixative labelled Frazier, Narda and transverse colon ?? polyp is a single 0.2 x 0.2 x 0.2 cm pink-doll irregular soft tissue, submitted in toto in (B). ? [facility] labelled Frazier, Narda and descending colon ?? polyp x2 are three pink-doll irregular soft tissues ranging from 0.2 x 0.2 x 0.2 cm to 0.5 x 0.5 x 0.4 cm. ??The presumed margin of the largest tissue is inked ?? black, this tissue is bisected and entirely submitted in (C1) and the two ? smaller pieces are submitted intact in (C2). ? Received in [facility] fixative labelled Frazier, Narda and sigmoid polyp is a single 0.3 x 0.2 x 0.2 cm pink-doll, irregular soft tissue, submitted in toto in (D). (Stephany Nobles)/mpl ? End of Report ? [facility] 03/14/2010 03/14/2010 14: 07 EST us Pradip Diaz MD PATHOLOGY ORDERABLES Final Resul t [facility] [address] [place] [address] documented in this encounter Visit Diagnoses Not on filedocumented in this encounter Care Teams Cardroom Plastic Card Grader Relationship Specialty Start Date End Date Unknown, Provider, PCP - General 03/15/10 03/15/10 documented as of this encounter
--- OUTSIDE RECORDS SUMMARY | 2024-02-17 15:56 | XMS_ITS | Encounter Summary ---
Author Organization Replaced By [facility] [place] [address] Care Team Providers Care Coffee Roaster Name Role Phone Ag Trent MD Primary Care Provider Encounter Details Date Type Department Care Team (Late st Contact Info) Description 05/09/2020 Orders Only Hematology/Oncology at [address] [phone] Kendy Su, RN Social History Tobacco Use Types Packs/Day Years [...] on filedocumented in this encounter Care Teams Coffee Roaster Relationship Specialty Start Date End Date Ag Trent MD [address] [place] [address] PCP - General 02/02/14 documented as of this encounter
--- OUTSIDE RECORDS SUMMARY | 2024-02-17 15:56 | XMS_ITS | Encounter Summary ---
Author Organization [facility] Address [address] [place] [address] Care Team Providers Care Operating Room Assistant Name Role Phone Latoya Quintanilla MD Primary Care Provider Unavailabl e Encounter Details Date Type Department Care Team (Late st Contact Info) Description 12/09/2023 Lab Requisition [facility] Pathology & Laboratory Medicine - [facility] [address] [place] [address] Emmanuel Manuel MD [address] [place] [phone] Personal history of colonic polyps Social History Tobacco Use Types Packs/Day Years [...] :02 EDT Personal history of colonic polyps documented in this encounter Results * SURGICAL PATHOLOGY (12/08/2023 13:02 EDT) Note to Patient The following pathology results have been interpreted by your pathologist and may be available to you before your health provider has had the opportunity to review them. Please allow time for your provider to receive these results and explore management options, if applicable. 12/11/2023 14:12 EDT [facility] Final Diagnosis A. COLON, TRANSVERSE, POLYP, BIOPSY: - Tubular adenoma. B. COLON, TRANSVERSE, POLYP X2, BIOPSY: - Tubular adenoma. C. RECTUM, POLYP, BIOPSY: - Hyperplastic polyp. - Deeper sections have been examined. 12/11/2023 14:12 [facility] Attestation There was significant resident/fellow involvement in the diagnostic evaluation of this case. By the signature below, the attending physician certifies that they have personally conducted a gross and/or microscopic examination of the described specimens and rendered or confirmed the above diagnosis. 12/11/2023 14:12 [facility] at [address]12 Clinical History Hx of colon polyps 12/11/2023 14:12 [facility] Gross Description A. Received [...] C1. Nurys Hamilton 12/09/2023 9:21 12/11/2023 14:12 [facility] Resident/Gato w: Canelo Mar DO 12/11/2023 14:12 [facility] Performing Lab [facility] 12/11/2023 14:12 [facility] Scanned Images 12/11/2023 14:12 [facility] Tissue SPECIMEN FROM RECTUM / Unknown 12/08/2023 13:02 EDT 12/09/2023 8:13 EDT Tissue specimen (specimen) POLYP OF COLON / Unknown 12/08/2023 13:02 EDT 12/09/2023 8:13 EDT Tissue specimen (specimen) SPECIMEN FROM RECTUM / Unknown 12/08/2023 13:02 EDT 12/09/2023 8:13 EDT us Emmanuel Manuel MD PATHOLOGY ORDERABLES F inal Result [facility] [address] [place], [place] [id number] documented in this encounter Visit Diagnoses Diagnosis Personal history of colonic polyps documented in this encounter Care Teams Operating Room Assistant Relationship Specialty Start Date End Date Latoya Quintanilla MD PCP - General 03/16/10 01/19/24 documented as of this encounter
--- OUTSIDE RECORDS SUMMARY | 2024-02-17 15:56 | XMS_ITS | Encounter Summary ---
Author Organization [facility] Address [facility] [place] [address] Care Team Providers Care Smeller Name Role Phone Ag Trent MD Primary Care Provider Reason for Visit * Reason Comments Radiation Follow-up breast cancer Encounter Details Date Type Department Care Team (Late st Contact Info) Description 11/20/2017 10:30 AM EDT Office Visit Radiation Oncology at [address] [phone] Haley Robles, [address] RADIATION ONCOLOGY [place], [place] [id number] Malignant neoplasm of left breast in female, [...] Sign Reading Time Taken Comments Blood Pressure 155/64 11/20/2017 10:42 AM EDT Pulse 58 11/20/2017 10:42 AM EDT Temperature 36.7 ??C (98.1 ??F) 11/20/2017 10:42 AM E DT Respiratory Rate 18 11/20/2017 10:42 AM EDT Oxygen Saturation 97% 11/20/2017 10:42 AM EDT Inhaled Oxygen Concentration - - Weight 83.6 kg (184 lb 3.2 oz) 11/20/2017 10:42 AM EDT Height 160 cm (5' 3) 11/20/2017 10:42 AM EDT Body Mass Index 32.63 11/20/2017 10:42 AM EDT documented in this encounter Progress Notes * Margaret Haley M, VARNISH MAKER HELPER - 11/20/2017 10:30 AM EDT Images from the original note were not included. Patient ID: Narda Rivera is a 67 y.o. female.breast ca, L, IDC w/lobular features, high gr, ER+CO+, Qih3tky-, s/p lumpectomy & SNB, pT2 pN1a, stage II, +extensive LVI. S/p adjuvant chemo and radiation therapy. She was treated with 60.4 Gy which was completed on 10/18/2014. She is now on tamoxifen for hormone therapy. She is in clinic for scheduled followup. HPI 63 y/o f who underwent [place] [place]: L breast lesion 1, SUSPICIOUS, 14 mm mass @ 0100. L breast lesion 2, SUSPICIOUS, 3.8 mm mass @ 0100, 12 mm from lesion 1. R breast neg. ?? 02/02/14 US guided core needle bxs L breast mass @ 0100. ?? Path: Invasive mammary ca w/ductal & lobular features. LVI present. ER+CO+. Hof0sfc IHC neg. ?? 02/08/14 B breast MRI: [...] = 0.6 - 0.8 cm; pT2 pN1a. Mqe2biy FISH neg. Comment: Multiple satellite foci of [...] met dz. ?? Chemotherapy detail: [facility] ([facility]) 03/29/2014 03/30/2014 Day, Cycle Day 1, Cycle [...] pegfilgrastim (NEULASTA) SubQ 6 mg [facility] ([facility]) 05/10/2014 05/11/2014 Day, Cycle Day 1, Cycle 4 Day 2, Cycle 4 cyclophosphamide (CYTOXAN) IV 600 mg/m2/dose = 1,182 mg DOXOrubicin (ADRIAMYCIN) IV 60 mg/m2/dose = 118.2 mg PACLitaxel (TAXOL) IV pegfilgrastim (NEULASTA) SubQ 6 mg [facility] ([facility]) 05/24/2014 05/31/2014 Day, Cycle Day 1, Cycle 1 Day 8, Cycle 1 cyclophosphamide (CYTOXAN) IV DOXOrubicin (ADRIAMYCIN) IV PACLitaxel (TAXOL) IV 80 mg/m2/dose = 154 mg 80 mg/m2/dose = 154 mg pegfilgrastim (NEULASTA) SubQ [facility] ([facility]) 06/07/2014 06/14/2014 Day, Cycle Day 15, Cycle 1 Day 1, Cycle 2 cyclophosphamide (CYTOXAN) IV DOXOrubicin (ADRIAMYCIN) IV PACLitaxel (TAXOL) IV 80 mg/m2/dose = 154 mg 80 mg/m2/dose = 154 mg pegfilgrastim (NEULASTA) SubQ [facility] ([facility]) 06/21/2014 06/28/2014 Day, Cycle Day 8, Cycle 2 Day 15, Cycle 2 cyclophosphamide (CYTOXAN) IV DOXOrubicin (ADRIAMYCIN) IV PACLitaxel (TAXOL) IV 80 mg/m2/dose = 154 mg 80 mg/m2/dose = 154 mg pegfilgrastim (NEULASTA) Sub [facility] ([facility]) 07/05/2014 07/12/2014 Day, Cycle Day 1, Cycle 3 Day 8, Cycle 3 cyclophosphamide (CYTOXAN) IV DOXOrubicin (ADRIAMYCIN) IV PACLitaxel (TAXOL) IV 80 mg/m2/dose = 154 mg 80 mg/m2/dose = 154 mg pegfilgrastim (NEULASTA) Sub [facility] ([facility]) 07/19/2014 07/26/2014 Day, Cycle Day 15, Cycle 3 Day 1, Cycle 4 cyclophosphamide (CYTOXAN) IV DOXOrubicin (ADRIAMYCIN) IV PACLitaxel (TAXOL) IV 80 mg/m2/dose = 154 mg 80 mg/m2/dose = 154 mg pegfilgrastim (NEULASTA) Sub [facility] ([facility]) 08/02/2014 08/09/2014 Day, Cycle Day 8, Cycle [...] breast 06/2014 switched from Arimidex to Femara ??01/2016--switched to tamoxifen due to increased arthralgias Treatment summary completed and reviewed with patient and copy sent PCP Chemotherapy and Supportive Care Treatment History BREAST CANCER NOTES 09/07/2015 Method of Cancer Detection abnormal mammogram of the left breast 12/2013 Menopausal Status at Diagnosis post-menopausal Date of Diagnostic Biopsy 02/02/2014 Local Surgery Lumpectomy done by Dr Cohen at [facility] Axillary Management [place] nodes alone--2+ of 2 sentinel nodes removed. [...] switched to Femara 01/2016 switched to tamoxifen DEXA (bone density test) 01/2015--DEXA T score of -1.0 Surveillance mammogram 05/04/2015--benign 05/15/2016- mammogram--no evidence of malignancy 05/28/2017- Mammogram--no evidence of malignancy 2. Osteopenia: borderline, T -1.0. Calcium makes her constipated. Recommend calcium rich food. Willrepeat DEXA scan in 2 years (01/2017). vit D level normal- 60 today (range 18-78) Patient Active Problem List Diagnosis Code ??? Malignant neoplasm of left female breast (BREAST CANCER) C50.912 ??? Hypothyroidism E03.9 Past Surgical History: Procedure Laterality Date ??? BREAST BIOPSY Left 01/2014 ??? BREAST LUMPECTOMY Left 02/22/2014 ??? PRO BX/REMV, LYMPH NODE, DEEP AXILL Left 02/22/2014 BIOPSY OR EXCISION OF LYMPH NODE(S), OPEN, DEEP AXILLARY NODE(S) performed by Ibrahima Cohen MD at [facility] MAIN OR ??? PRO IDENTIFY SENTINEL NODE Left 02/22/2014 SENTINEL NODE INJECTION performed by Ibrahima Cohen MD at [facility] MAIN OR ??? PRO MASTECTOMY, PARTIAL Left 02/22/2014 MASTECTOMY PARTIAL performed by Ibrahima Cohen MD at [facility] MAIN OR Allergies Allergen Reactions ??? Coumadin [Warfarin] Severe bleeding Medications 11/20/17 1054 Medication Sig Taking? tamoxifen (NOLVADEX) 20 mg Tablet Take 1 tablet by mouth daily. Yes pravastatin (PRAVACHOL) 20 mg Tablet Take 20 mg by mouth daily. Yes turmeric root extract 500 mg Capsule Take 500 mg by mouth daily. Yes CALCIUM CARBONATE/VITAMIN D3 (VITAMIN D-3 ORAL) Take by mouth daily. Yes LEVOTHYROXINE SODIUM (SYNTHROID ORAL) Take 200 mcg by mouth daily. Yes SENNOSIDES (SENNA ORAL) Take by mouth [...] Take 81 mg by mouth daily. Yes diaZEPam (VALIUM) 5 mg Tablet Take 5 mg by mouth as needed. Reported on 05/15/2016 Social History Social History ??? Marital status: Spouse name: N/A ??? Number of children: N/A ??? Years of education: N/A Occupational History ??? Not on file. Social History Main Topics ??? Smoking status: Never Smoker ??? Smokeless tobacco: Never Used ??? Alcohol use No ??? Drug use: Yes Special: Marijuana ??? Sexual activity: Not on file Other Topics Concern ??? Not on file Social History Narrative Updated social history today. Living Situation/Daily Activities/Transportation: Pt has a live in [facility] who is a nurse currently. This is a temporary arrangement. She manages her daily chores and activities. She does drive. ??Work/Finances/Insurance: Pt is retired. She is able to manage her financial obligations. She has Medicare and a secondary insurance. She has utilized the WAYN services at [facility] and referred her back to there to speak with her contact. ??Advance Directives: pt has completed her advance directive. Per her requested obtained a copy from [facility]. Pt reviewed the document and indicated she wants to make changes. She was previously given [facility] advance directive booklet/form by MANAGER STONE and patient is to review and complete. Utilization of Community Resources: [facility] services. Pt receives her primary care at the [facility]. Pt agreeable to participate in the [place] [facility]. Discussed project and provided her with the brochure. SEAN Galeano RN, [facility] and informed her pt willing to participate. Adjustment to Illness/Mental Health Issues: increase in anxiety and depression and patient is beingseen by a counselor once a week. ? Interim History: Ms Rivera indicates that for several weeks that she has been quite depressed. She denies intent to hurt herself. She has discussed this with her PCP and he has referred her to a therapist that she is seeing once a week. Dr Trent had discussed starting her on an antidepressant but she has been reluctant to do so. She has been off her AI due to severe arthralgias with worse symptoms in her ankles. She was started on GRAHAM and is tolerating this gnerally well but she is anxious to get off the medication. She reports no issues with her breast. She has occ mild tenderness. She has no masses, no nipple discharge, no ROM restriction with her left shoulder, no lymphedema. Time from completion of treatment 2 years Problems at primary site (breast) none Metastatic symptoms: none Pain none Breast tenderness Sl tenderness with pressure only Skin changes breast none Lymphedema none Persistent cough none Persistent headaches Few mild headache recently ROM restriction None Functional status Independent with ADL and IADL Smoking none Activity/exercise Walking and ride stationary bike 10 min a day Hormone therapy side effects + hot flashes managed with fan No vaginal bleeding, + arthritis susana none Misc Depressed every morning--has been seeing a therapist Review of Systems Constitutional: Negative. Negative for activity change, appetite change, chills, diaphoresis, fatigue, fever and unexpected weight change. Has been trying to exercise daily on stationary bike HENT: Negative. Respiratory: Negative. Negative for cough, chest tightness and shortness of breath. Cardiovascular: Negative for chest pain, palpitations and leg swelling. Gastrointestinal: Negative. Negative for abdominal distention, abdominal pain and constipation. Genitourinary: Negative for vaginal bleeding and vaginal discharge. Musculoskeletal: Negative for arthralgias and back pain. Joint pain is stable Skin: Negative. Neurological: Negative. Negative for dizziness, weakness, light-headedness and headaches. Hematological: Negative. Does not bruise/bleed easily. Psychiatric/Behavioral: Positive for sleep disturbance. Has needed sleeping pill x 30 years Vitals Office Visit from 11/20/2017 in Radiation Oncology at [facility] Weight 83.6 kg (184 lb 3.2 oz) Height 160 cm (5' 3) BSA (Calculated - sq m) 1.93 sq meters BMI (Calculated) 32.63 Temp 36.7 ??C (98.1 ??F) Temp src Oral Heart Rate 58 Heart Rate Source NIBP Resp 18 BP 155/64 BP Location Right arm Patient Position Sitting [...] ADL Cosmetic Result: ___X__Excellent; Good;____ Fair; ____Poor 05/28/2017- mammogram FINDINGS: ??The breasts are heterogeneously dense, which may obscure small masses. There are no suspicious microcalcifications, masses, or areas of distortion. The pattern is stable. ?? CONCLUSION: No mammographic evidence of malignancy. Assessment and Plan: Narda Rivera is a torri 67 y.o. female.breast ca, L, IDC w/lobular features, high gr, ER+CO+, Awo2laf-, s/p lumpectomy & SNB, pT2 pN1a, stage II, +extensive LVI. S/p adjuvant chemo with ddAC and taxol followed by radiation therapy. She was treated with 60.4 Gy which was completed on 10/18/2014. She is on tamoxifen for hormone therapy. She had a mammogram 05/28/2017 which was negative for recur rence. There is JACINDA. She is to have a repeat mammogram in May 2018. She continues with GRAHAM which she is tolerating generally well. She has had increased problems with depression and anxiety. Her PCP has referred her for counselingwhich she is doing weekly. She has been hesitant to take medications. She was given information about antidepressants that can be taken with GRAHAM which includes Effexor and Remeron. She will discuss the use of medications with her PCP. She was encouraged to have this discussion as soon as possible since counseling alone has had minimal impact on her mood. Patient is to return to radiation oncology in one year. She will be seen by medical oncology in theinterim. documented in this encounter Plan of Treatment Not on file documented as of this encounter Visit Diagnoses Diagnosis Malignant neoplasm of left breast in female, estrogen receptor positive, unspecified site of breast documented in this encounter Care Teams Smeller Relationship Specialty Start Date End Date Ag Trent MD [address] [place] [address] PCP - General 02/02/14 documented as of this encounter
--- OUTSIDE RECORDS SUMMARY | 2024-02-17 15:57 | XMS_ITS | Encounter Summary ---
Author Organization [facility] Address [facility] [place] [address] Care Team Providers Care Web Database Developer Name Role Phone Ag Trent MD Primary Care Provider [phone] Encounter Details Date Type Department Care Team (Latest Contact Info) Description 02/20/2016 - 02/20/2016 11:59 PM EST Hospital Encounter Radiology Library at [facility] [place] [phone] Kirill Saavedra MD [facility] HEMATOLOGY [place] [address] Pain Discharge Disposition: Home Social History Tobacco Use [...] Sig Dispensed Refills Start Date End Date LEVOTHYROXINE SODIUM (SYNTHROID ORAL) Take 175 mcg by mouth daily. diaZEPam (VALIUM) 5 mg Tablet Take 5 mg by mouth as needed. Reported on 05/15/2016 SENNOSIDES (SENNA ORAL) Take by mouth daily as needed. Reported on 03/12/2016 lactobacillus (BACID) Capsule Take 1 tablet by mouth daily. Reported on 03/12/2016 multivitamin Capsule Take 1 capsule by mouth daily. omeprazole (PRILOSEC) 20 mg Capsule, Delayed Release(E.C.)Indication s:Malignant neoplasm of left female breast Take 1 capsule by mouth daily. 90 capsule 1 08/09/2014 aspirin 81 mg Tablet, Delayed Release (E.C.) Take 81 mg by mouth daily. tamoxifen (NOLVADEX) 20 mg TabletIndications:Nithin brewer neoplasm of left female breast, unspecified site of breast,Personal history of breast cancer Take 1 tablet by mouth daily. 90 tablet 3 02/13/2016 01/29/2017 LORazepam (ATIVAN) 0.5 mg TabletIndications:Nithin brewer neoplasm of left female breast Take 1 tablet by mouth every 6 hours as needed for Anxiety (nausea). 30 tablet 0 08/09/2014 01/14/2017 polyethylene glycol (MIRALAX) 17 gram Powder in Packet Take 17 g by mouth 3 times daily as needed. 03/25/2019 ERGOCALCIFEROL, VITAMIN D2, (VITAMIN D ORAL) Take 1 tablet by mouth. 05/15/2016 hydrochlorothiazide (HYDRODIURIL) 25 mg Tablet Take 25 mg by mouth daily. 11/14/2016 pravastatin (PRAVACHOL) 10 mg Tablet Take 10 mg by mouth daily. 11/14/2016 documented as of this encounter Plan of Treatment Not on file documented as of this encounter Procedures Procedure Name Priority Date/Time Associated Diagnosis Comments DIAGNOSTIC RADIOLOGY SCAN 02/27/2016 12:00 AM EST FILM LIBRARY STORAGE ONLY NUCLEAR MEDICINE Routine 02/20/2016 12:00 AM EST Pain documented in this encounter Results * SCAN DOC: DIAGNOSTIC RADIOLOGY (02/27/2016 12:00 AM EST) Anatomical Region Laterality Modality SO Scanning Provider MEDIA MGR SCAN EXT O RDR/RSLT * Film Library- Storage Only nuclear medicine (02/20/2016 12:00 AM EST) Narrative [facility] - 02/20/2016 9:59 PM EST This exam is for storage only and is auto-finalizing. Kirill Saavedra MD IMG FILM LIBRARY ORD ERABLES [place], [place] documented in this encounter Visit Diagnoses Diagnosis Pain Generalized pain documented in this encounter Care Teams Web Database Developer Relationship Specialty Start Date End Date Ag Trent MD [address] [place] [address] PCP - General 02/02/14 documented as of this encounter
--- OUTSIDE RECORDS SUMMARY | 2024-02-17 15:57 | XMS_ITS | Encounter Summary ---
Author Organization [facility] Address [facility] [place] [address] Care Team Providers Care Chip Frier Name Role Phone Ag Trent MD Primary Care Provider [phone] Encounter Details Date Type Department Care Team (Latest Contact Info) Description 11/16/2014 1:45 PM EDT - 11/16/2014 11:59 PM EDT Hospital Encounter Mammography at [facility] [place] [phone] Personal history of malignant neoplasm of breast Social History Tobacco [...] Sig Dispensed Refills Start Date End Date SENNOSIDES (SENNA ORAL) Take by mouth daily [...] (E.C.) Take 81 mg by mouth daily. anastrozole (ARIMIDEX) 1 mg Tablet Take 1 mg by mouth daily. 11/17/2014 exemestane (AROMASIN) 25 mg TabletIndications:[place] cancer, female, left Take 1 tablet by mouth daily. 30 tablet 2 11/15/2014 11/18/2014 acetaminophen (TYLENOL) 325 mg Tablet Take 650 mg by mouth every 4 hours as needed for Pain. 05/16/2015 EMOLLIENT BASE (CREAM BASE TOP) Apply topically. Jeans Cream. Apply to area of radiation twice a day but no less than 2 hours before a treatment. 12/16/2014 LORazepam (ATIVAN) 0.5 mg TabletIndications:Hetal hudson neoplasm of left female breast Take 1 tablet by mouth every 6 hours as needed for Anxiety (nausea). 30 tablet 0 08/09/2014 01/14/2017 bisacodyl (DULCOLAX) 5 mg Tablet, Delayed Release (E.C.) Take 5 mg by mouth daily as needed for Constipation. 05/16/2015 polyethylene glycol (MIRALAX) 17 gram Powder in Packet Take 17 g by mouth 3 times daily as needed. 03/25/2019 ERGOCALCIFEROL, VITAMIN D2, (VITAMIN D ORAL) Take 1 tablet by mouth. 05/15/2016 levothyroxine (SYNTHROID) 175 mcg Tablet Take 175 mcg by mouth daily. 12/16/2014 hydrochlorothiazide (HYDRODIURIL) 25 mg Tablet Take 25 mg by mouth daily. 11/14/2016 pravastatin (PRAVACHOL) 10 mg Tablet Take 10 mg by mouth daily. 11/14/2016 documented as of this encounter Plan of Treatment Not on file documented as of this encounter Procedures Procedure Name Priority Date/Time Associated Diagnosis Comments MAMMO DIRECT DIGITAL UNILATERAL Routine 11/16/2014 2:07 PM EDT Personal history of malignant neoplasm of breast documented in this encounter Results * Mammo direct digital unilateral (11/16/2014 2:07 PM EDT) Anatomical Region Laterality Modality Breast N/A Mammography 11/16/2014 2:07 PM EDT Narrative 11/17/2014 8:51 AM EDT Reason for Exam: Screening Technique: Craniocaudal (CC) and Medio-lateral Oblique (MLO) views of the left breast obtained with direct digital capture. The exam was evaluated by CAD version 8.3.17. Findings: This is a negative mammogram (ACR Category 1). There is a stable fibroglandular pattern without significant change as compared to prior studies. ??Expected post surgical and post therapeutic change. There is no mammographic evidence of cancer. The breast is heterogeneously dense which limits mammographic sensitivity for the detection of malignancy. CONCLUSION: This is a NEGATIVE mammogram (ACR Category 1). Routine screening mammography is recommended with the frequency dependent upon the patient's age and breast cancer risk factors. A letter has been sent to this patient by the breast imaging center. Procedure Note Ag Calderon MD - 11/17/2014 Reason for Exam: Screening Technique: Craniocaudal (CC) and Medio-lateral Oblique (MLO) views of theleft breast obtained with direct digital capture. The exam was evaluated by CAD version 8.3.17. Findings: This is a negative mammogram (ACR Category 1). There is a stablefibroglandular pattern without significant change as compared to prior studies. Expectedpost surgical and post therapeutic change. There is no mammographic evidence of cancer. The breast is heterogeneously dense which limits mammographic sensitivity for the detection ofmalignancy. CONCLUSION: This is a NEGATIVE mammogram (ACR Category 1). Routine screening mammography is recommended with the frequency dependentupon the patient's age and breast cancer risk factors. A letter has been sent to this patient by the breast imaging center. Ibrahima Cohen MD IMG MAMMO ORDERABLES documented in this encounter Visit Diagnoses Diagnosis Personal history of malignant neoplasm of breast documented in this encounter Care Teams Chip Frier Relationship Specialty Start Date End Date Ag Trent MD [address] [place] [id number] PCP - General 02/02/14 documented as of this encounter
--- OUTSIDE RECORDS SUMMARY | 2024-02-17 15:57 | XMS_ITS | Encounter Summary ---
Author Organization [facility] Address [facility] Sonya traore [place] [id number] Care Team Providers Care Tank Car Inspector Name Role Phone Ag Trent MD Primary Care Provider [phone] Reason for Referral * Consultation (Routine) - Complete - Patient Seen (External Appt Consult Notes Rcv'd) Specialty Diagnoses / Procedures Referred By Sary kee Referred To Contact Hematology and Oncology Diagnoses Breast cancer, female, left Clau Alfonso MD [facility] [place] [address] [facility] Hem Onc Office [address] [place] [phone] Referral ID Status Reason Start Date Expiration Date Visits Requested Visits Authorized [id number] Complete - Patient Seen (External Appt Consult Notes Rcv'd) Consult, Test & Treat 11/28/2014 11/28/2015 3 3 Reason for Visit * Reason Comments Radiation Follow-up Encounter Details Date Type Department Care Team (Late st Contact Info) Description 11/28/2014 2:00 PM EDT Follow-Up Radiation Oncology at [address] [phone] Clau Alfonso MD [facility] [place] [address] Breast cancer, female, left Discharge Disposition: Home Social History Tobacco Use [...] Sign Reading Time Taken Comments Blood Pressure 109/62 11/28/2014 2:02 PM EDT Pulse 68 11/28/2014 2:02 PM EDT Temperature 36.9 ??C (98.4 ??F) 11/28/2014 2:02 PM ED T Respiratory Rate 18 11/28/2014 2:02 PM EDT Oxygen Saturation 98% 11/28/2014 2:02 PM EDT Inhaled Oxygen Concentration - - Weight 79.3 kg (174 lb 12.8 oz) 11/28/2014 2:02 PM EDT Height - - Body Mass Index 30.59 11/08/2014 1:48 PM EDT documented in this encounter Patient Instructions * Patient Instructions* Clau Alfonso MD - 11/28/2014 2:32 PM EDT Your exam shows that you are healing nicely from radiotherapy & there is no evidence of cancer. You may resume your regular deodorant on your left underarm. You may use a straight/regular razor on your left underarm. You may expose the irradiated area to sun, but it is recommended that you apply sunscreen with an SPF of @ least #45 on the irradiated area prior to exposing it to sun. You may swim in chlorinated water. We will mail you a letter with an appointment to see me or a Radiation Oncology railroad yard worker in [address] Trent about your hyper feeling, difficulty sleeping & the continued bubbling in your throat. Any contribution from radiotherapy to the bubbling in your throat would be expected to be resolved by now. Restarting prilosec may help to decrease the bubbling. Referral to the Survivors' Clinic has been requested. Someone will contact you to arrange the appointment. documented in this encounter Progress Notes * Clau Alfonso MD - 11/28/2014 2:15 PM EDT CC: Sched'd fu s/p xrt completion. HPI: 64 y/o f who completed xrt 1 mo ago for breast ca, L, IDC w/lobular features, high gr, ER+NM+,[id number]-, s/p lumpectomy & SNB, pT2 pN1a, stage II, +extensive LVI. S/p adjuvant chemo. Started arimidex, but could not tolerate side effects. Then rx'd aromasin, but too expensive. Next rx'd letrozole, but she has not started it yet. 11/16/14 L mmg: Neg. 11/16/14 fu w/Dr. Cohen; rtc 6 mos w/B mmg. Irrad'd area healed. No pain. Cont'd intermittent bubbling in throat & feeling hyper over the past month w/difficulty sleeping. She has not been taking her prilosec, but is willing to restart it.Has not started letrozole yet due to hyper feeling. No hand/arm swelling. ROM of arms around shoulders ok. Appetite ok. No past medical history on file. Past Surgical History Procedure Laterality Date ??? Pro mastectomy, partial Left 02/22/2014 MASTECTOMY PARTIAL performed by Ibrahima Cohen MD at [facility] MAIN OR ??? Pro bx/remv, lymph node, deep axill Left 02/22/2014 BIOPSY OR EXCISION OF LYMPH NODE(S), OPEN, DEEP AXILLARY NODE(S) performed by Ibrahima Cohen MD at [facility] MAIN OR ??? Pro identify sentinel node Left 02/22/2014 SENTINEL NODE INJECTION performed by Ibrahima Cohen MD at [facility] MAIN OR ??? Left 02/22/2014 MODIFIER SENTINEL NODE EXCISION performed by Ibrahima Cohen MD at [facility] MAIN OR Physical Exam Constitutional: She is oriented to person, place, and time. She appears well- developed and well-nourished. No distress. BP 109/62 mmHg Pulse 68 Temp(Src) 36.9 ??C (98.4 ??F) (Oral) Resp 18 Wt 79.289 kg (174 lb 12.8 oz) SpO2 98% HENT: Head: Normocephalic and atraumatic. Eyes: Conjunctivae and EOM are normal. Right eye exhibits no discharge. Left eye exhibits no discharge. No scleral icterus. Neck: Normal range of motion. Neck supple. No tracheal deviation present. No thyromegaly present. Pulmonary/Chest: Effort normal and breath sounds normal. No stridor. No respiratory distress. She has no wheezes. She has no rales. She exhibits no tenderness. Right breast exhibits no inverted nipple, no mass, no nipple discharge, no skin change and no tenderness. Left breast exhibits skin change ( Mild hyperpigmentation, consistent w/expected post xrt appearance.). Left breast exhibits no inverted nipple, no mass, no nipple discharge and no tenderness. Abdominal: Soft. She exhibits no distension and no mass. There is no tenderness. There is no rebound and no guarding. Musculoskeletal: Normal range of motion. She exhibits no edema or tenderness. Lymphadenopathy: Head (right side): No submental, no submandibular, no preauricular, no posterior auricular and no occipital adenopathy present. Head (left side): No submental, no submandibular, no preauricular, no posterior auricular and no occipital adenopathy present. She has no cervical adenopathy. She has no axillary adenopathy. Right: No supraclavicular adenopathy present. Left: No supraclavicular adenopathy present. Neurological: She is alert and oriented to person, place, and time. No cranial nerve deficit. She exhibits normal muscle tone. Coordination normal. Skin: She is not diaphoretic. Psychiatric: She has a normal mood and affect. Her behavior is normal. Judgment and thought contentnormal. A: Recovering from xrt. JACINDA. P: She was advised to restart prilosec for the throat bubbling & to contact Dr. Trent about her hyper feeling, insomnia & the bubbling in her throat. I discussed w/her how any esophageal inflammation from xrt has resolved by now. During our conversation, she described difficulty progressing psychologically/emotionally from completing her cancer treatments. I discussed the existence of the Cancer Survivor Clinic & described the Clinic's goals, including enhancing progression from that being a cancer patient to being a survivor. She is interested in referral to the Survivor Clinic & referral requested. Skin care of irrad'd area discussed. Rtc 6 mos. Cc: Dr. Trent documented in this encounter Plan of Treatment Scheduled Referrals Name Type Priority Associated Diagnoses Orde r Schedule Referral to Survivor Clinic Outpatient Referral Routine Breast cancer, female, left Ordered: 11/28/2014 documented as of this encounter Visit Diagnoses Diagnosis Breast cancer, female, left documented in this encounter Care Teams Tank Car Inspector Relationship Specialty Start Date End Date Ag Trent MD [address] [place] [address] PCP - General 02/02/14 documented as of this encounter
--- OUTSIDE RECORDS SUMMARY | 2024-02-17 15:57 | XMS_ITS | Encounter Summary ---
Author Organization [facility] Address [facility] [place] [address] Care Team Providers Care Director Of Capital Giving Name Role Phone Ag Trent MD Primary Care Provider [phone] Encounter Details Date Type Department Care Team (Late st Contact Info) Description 11/17/2014 Orders Only Hematology Oncology at [address] [phone] Ashley Elena, RN Social History Tobacco Use Types Packs/Day Years Used Date Smoking Tobacco: Never Smokeless Tobacco: Never Alcohol Use Standard Drinks/Week Comments No 0 (1 standard drink = 0.6 oz pur e alcohol) Sex and Gender Information Value Date Recorded Sex Assigned at Not on file Gender Identity Not on file Sexual Orientation Not on file documented as of this encounter Progress Notes * Ashley Elena, RN - 11/17/2014 3:36 PM EDT After review with Dr. Saavedra, phone call back to Narda and updated her on information obtained from her insurance company/pharmacy. Advised her that Dr. Saavedra would be willing to prescribe femara, instead of exemestane. Instructed on side effect profile of each of those. She is indecisive asto which medication she would like to take. She will call her insurance company to discuss the details further and call us back to let us know if she is going to go ahead with exemestane or ask for new prescription for femara to be sent to pharmacy. documented in this encounter Plan of Treatment Not on file documented as of this encounter Visit Diagnoses Not on filedocumented in this encounter Care Teams Director Of Capital Giving Relationship Specialty Start Date End Date Ag Trent MD [address] [place] [address] PCP - General 02/02/14 documented as of this encounter
--- OUTSIDE RECORDS SUMMARY | 2024-02-17 15:57 | XMS_ITS | Encounter Summary ---
Author Organization [facility] Address [facility] [place] [address] Care Team Providers Care Hospice Music Therapy Name Role Phone Ag Trent MD Primary Care Provider [phone] Encounter Details Date Type Department Care Team (Late st Contact Info) Description 10/11/2014 Notes Only Hematology [place] [address] Kirill Saavedra MD [facility] DR HEMATOLOGY AND ONCOLOGY [place] [id number] Social History Tobacco Use Types Packs/Day Years Used Date Smoking Tobacco: Never Smokeless Tobacco: Never Alcohol Use Standard Drinks/Week Comments No 0 (1 standard drink = 0.6 oz pur e alcohol) Sex and Gender Information Value Date Recorded Sex Assigned at Not on file Gender Identity Not on file Sexual Orientation Not on file documented as of this encounter Progress Notes * Yulissa Mcguire RN - 10/18/2014 10:24 AM EDT Research Nurse: Week 28 OR phone call Control ARM 10/11/2014 [id number]: Effects of an Exercise Intervention on Physical Activity during Chemotherapy for Patients with Early Stage Breast Cancer PC to Narda regarding weeks 25 - 28 (now monthly calls) spanning 09/13/14 - 10/10/14. Narda continuesfeeling neutral about exercising (mostly walking) but has walked between 52 min - 97 min per week in the past month. Her daily average are between 2,826 - 3,861 steps. Narda agrees to continue on study for the last month and EOS (end of study visit) is planned in conjunction with her visit with on November 16. Narda states she has some esophageal irritation and insomnia but offered no other complaints. documented in this encounter Plan of Treatment Not on file documented as of this encounter Visit Diagnoses Not on filedocumented in this encounter Care Teams Hospice Music Therapy Relationship Specialty Start Date End Date Ag Trent MD [address] [place] [address] PCP - General 02/02/14 documented as of this encounter
--- OUTSIDE RECORDS SUMMARY | 2024-02-17 15:57 | XMS_ITS | Encounter Summary ---
Author Organization [facility] [place] [address] Care Team Providers Care Contract Attorney Name Role Phone Ag Trent MD Primary Care Provider [phone] Encounter Details Date Type Department Care Team (Late st Contact Info) Description 11/18/2014 Orders Only Hematology Oncology at [address] [phone] Kiarra Madrid RN Breast cancer, female, unspecified laterality Social History Tobacco Use Types Packs/Day Years Used Date Smoking Tobacco: Never Smokeless Tobacco: Never Alcohol Use Standard Drinks/Week Comments No 0 (1 standard drink = 0.6 oz pur e alcohol) Sex and Gender Information Value Date Recorded Sex Assigned at Not on file Gender Identity Not on file Sexual Orientation Not on file documented as of this encounter Progress Notes * Kiarra Madrid RN - 11/18/2014 11:46 AM EDT Patient states aromasin medication to expensive would like to try letrozole even though similar profile to arimidex since it is free. Dr. Saavedra agreeable to plan. Script for 30 tabs called into patient's pharmacy. documented in this encounter Plan of Treatment Not on file documented as of this encounter Visit Diagnoses Diagnosis Breast cancer, female, unspecified laterality documented in this encounter Care Teams Contract Attorney Relationship Specialty Start Date End Date Ag Trent MD [address] [place] [address] PCP - General 02/02/14 documented as of this encounter
--- OUTSIDE RECORDS SUMMARY | 2024-02-17 15:57 | XMS_ITS | Encounter Summary ---
Author Organization [facility] Address [facility] [place] [address] Care Team Providers Care Sponge Maker Name Role Phone Ag Trent MD Primary Care Provider [phone] Reason for Visit * Reason Onset Date Comments Medication Refill 03/16/2015 Encounter Details Date Type Department Care Team (Late st Contact Info) Description 03/16/2015 Telephone Hematology/Oncology at [address] [phone] Nataly Real RN Medication Refill Social History Tobacco Use Types Packs/Day Years [...] encounter Miscellaneous Notes * Telephone Encounter - Nataly Real RN - 03/16/2015 3:44 PM EST Received Ed message from clinical personal secretary Patient Called requesting a refill of her Anastrzole. Spoke with patient who reports that she is having trouble getting her anastrozole refilled. Suggested that patient call the pharmacy and skiy peak with lpharmacist. Rx Anastrozole 1 mg daily , 90 tabs with 3 refills called to Barbie Madrid RN. Patient reported that her finger nails are falling out and are not growing back.this is from chemo and they will grow back. Dr Saavedra notified. Responded that this is from chemo and they will grow back. documented in this encounter Plan of Treatment Not on file documented as of this encounter Visit Diagnoses Not on filedocumented in this encounter Care Teams Sponge Maker Relationship Specialty Start Date End Date Ag Trent MD [address] [place] [address] PCP - General 02/02/14 documented as of this encounter
--- OUTSIDE RECORDS SUMMARY | 2024-02-17 15:57 | XMS_ITS | Encounter Summary ---
[place] [address] Care Team Providers Care Pot Reliner Name Role Phone Ag Trent MD Primary Care Provider [phone] Encounter Details Date Type Department Care Team (Late st Contact Info) Description 03/13/2015 Orders Only Hematology [place] [address] Otilia Andre Social History Tobacco Use Types Packs/Day Years [...] on filedocumented in this encounter Care Teams Pot Reliner Relationship Specialty Start Date End Date Ag Trent MD [address] [place] [address] PCP - General 02/02/14 documented as of this encounter
--- OUTSIDE RECORDS SUMMARY | 2024-02-17 15:57 | XMS_ITS | Encounter Summary ---
Author Organization [facility] Address [facility] [place] [address] Care Team Providers Care Returned Goods Sorter Name Role Phone Ag Trent MD Primary Care Provider [phone] Reason for Visit * Reason Onset Date Comments Follow-up 12/14/2014 Encounter Details Date Type Department Care Team (Late st Contact Info) Description 12/14/2014 Telephone Hematology/Oncology at [address] [phone] Kiarra Madrid RN Follow-up Social History Tobacco Use Types Packs/Day Years [...] encounter Miscellaneous Notes * Telephone Encounter - Kiarra Madrid RN - 12/14/2014 11:22 AM EDT Spoke with Narda who states she has NOT started femara at this point. She has delayed it because she was diagnosed with hypothyroidism and wanted to get that under control first. She plans to start femara in next couple of days. Asked her to contact clinic when she has started it. She stated she would. Dr. Plasencia updated via this note. documented in this encounter Plan of Treatment Not on file documented as of this encounter Visit Diagnoses Not on filedocumented in this encounter Care Teams Returned Goods Sorter Relationship Specialty Start Date End Date Ag Trent MD [address] [place] [address] PCP - General 02/02/14 documented as of this encounter
--- OUTSIDE RECORDS SUMMARY | 2024-02-17 15:57 | XMS_ITS | Encounter Summary ---
Author Organization [facility] Address [facility] [place] [address] Care Team Providers Care Deputy Prosecuting Attorney Name Role Phone Ag Trent MD Primary Care Provider [phone] Reason for Referral * Consultation (Routine) - Specialty Diagnoses / Procedures Referred By Sary kee Referred To Contact Gynecology Diagnoses Personal history of breast cancer Kirill Saavedra MD [facility] [address] [place] [address] Referral ID Status Reason Start Date Expiration Date V isits Requested Visits Authorized [id number] Consult, Test & Treat 02/13/2016 08/11/2016 1 1 Reason for Visit * Reason Comments Follow-up Encounter Details Date Type Department Care Team (Late st Contact Info) Description 02/13/2016 3:00 PM EST Office Visit Hematology/Oncology at [address] [phone] Kirill Saavedra MD [facility] [address] [place] [address] Malignant neoplasm of left female breast, unspecified site of breast; Personal history of breast cancer; Left shoulder pain, unspecified chronicity Social History Tobacco Use Types Packs/Day Years [...] Sign Reading Time Taken Comments Blood Pressure 152/65 02/13/2016 3:14 PM EST Pulse 68 02/13/2016 3:14 PM EST Temperature 36.9 ??C (98.4 ??F) 02/13/2016 3:14 PM ES T Respiratory Rate 16 02/13/2016 3:14 PM EST Oxygen Saturation 99% 02/13/2016 3:14 PM EST Inhaled Oxygen Concentration - - Weight 80.3 kg (177 lb) 02/13/2016 3:14 PM EST Height 161 cm (5' 3.39) 02/13/2016 3:14 PM EST Body Mass Index 30.97 02/13/2016 3:14 PM EST documented in this encounter Progress Notes * Kirill Saavedra MD - 02/13/2016 3:00 PM EST Diagnosis: 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 Subjective:I feel fine HPI: Ms. Narda Rivera is 65 y.o. female Referred to us for consultation by Dr. Cohen on new diagnosis of breast cancer. She initially presenteda mass in her upper outer left breast with calcificationson a screening mammogram in December 2013.The main mass wasbiopsied showing infiltrating ductal and lobular carcinoma, ER positive, [id number]. MRI was then performed that showed the mass with multiple small satellites around it. Mrs. Rivera underwent left partial mastectomy and sentinel lymph nodebiopsy on February 23, 2014. Postoperative course was uneventful. she completed radiation on October 18. Interval history: Ms. Rivera is in clinic today for followup appointment on breast cancer. She has been on letrozole since June 2015. She still complains some stiffness and pain in his joints and takes ibuprofen to relieve it. When stiffness and joint increase she stops letrozole for a week or 2. She complains on new pain in left shoulder and shoulder blade started on 3 weeks ago. PMH: Left knee replacement in August 2015 Hypothyroidism on Synthroid Patient Active Problem List Diagnosis ??? Hypothyroidism ??? 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 Musculoskeletal: Stiffness, pain in left shoulder 3-4 out of 10. Skin: negative Neurological: negative Hematological: Negative for [...] to auscultation bilaterally, respirations unlabored Chest Wall: Left breast: healed surgical incision in left outer quadrant, no palpable masses or lumps in right breast. Examination [facility] [place] Heart: Regular rate and rhythm, S1, S2 [...] or inguinal areas. Neurologic: Normal Vitals BP 152/65 (Patient Position: Sitting) Pulse 68 Temp 36.9 ??C (98.4 ??F) (Oral) Resp 16 Ht 161 cm (5' 3.39) Wt 80.3 kg (177 lb) SpO2 99% BMI 30.97 kg/m2 Karnofsky score is 90 Pathology: ---Pathologic [...] count: Score = 3 Total Khalif Score: Show Low Grade III: 8-9 points DCIS: Ductal Carcinoma [...] slide reconstruction) MICROCALCIFICATIONS: Present in nonneoplastic tissue ER/SD/HER2: ER/SD/Her2 Comment: Please see prior biopsy [id number]. HER2 FISH will be repeated on this [...] cancer cells with immunostaining) Stain Intensity: Strong SD immunoreactivity: Positive (11-90% cancer cells with immunostaining) Stain Intensity: Strong NEGATIVE FOR HER2/DEL AMPLIFICATION Labs: Sodium 140, potassium 3.5, BUN 16, creatinine 0.49, [place] 9.4, total bilirubin 0.3, AST 16,ALT 29, alkaline phosphatase 123, total protein 7.5, albumen 3.7, WBC 5.7, hemoglobin 15.6, platelet count 252, ANC 3.75 Imagin05/04/15 mammogram: FINDINGS: Breast density:The breasts are heterogeneously [...] features, lymphovascular invasion present, SLN 2/2 positive, ER+/SD+, Her-2 unaplified, T2,at least N1a, Mx Treatment:s/p left partial mastectomy with sentinel lymph node biopsy the on 02/23/14 - 03/29/14 - 05/10/14 4 cycles of dd-AC with neulasta support -- 05/24/14 - 08/09/14 12 weekly Taxol 80 mg/m2 - 08/30/14 - 10/18/14 XRT October 2014 - July 10, 2015 Anastarazole 1 mg daily - July 18, 2014 Letrozole 2.5 mg a day Mild elevation of alkaline phosphatase and new shoulder/shoulder blade pain. I will order bone scanfor evaluation. Ms. Rivera has new second joint stiffness/pain related to letrozole. I discussed options including continuation of letrozole, but she has to hold it for a week or 2 due to increasing pain interferencewith her daily activities versus switching to tamoxifen 20 mg a day versus discontinuation of hormonal therapy. Which I did not recommend. I discussed risk and benefits of tamoxifen 20 mg daily. Risks include but not limited to hot flashes, vaginal dryness, allergic reaction, increased risk for blood clots and endometrial cancer. All questions were answered to patient's satisfaction. She is interested to proceed with tamoxifen. I recommended her to stop letrozole. 2. Osteopenia: borderline, T -1.0. Calcium makes her constipated. Recommend calcium rich food. Willrepeat DEXA scan in 2 years.Will check vit D level Plan: 1. D/c letrozole 2. Start Tamoxifen 20 mg daily 3. Bone scan within next 2-3 weeks 4. MANAGER HEAVY EQUIPMENT consult 5. Next visit with CMP in 4 weeks Mrs. Rivera is by herself today. The plan was discussed with the patient in details. All questions were answered to patient's satisfaction. I would like to thank Dr. Cohen and Dr. Trent for allowing me to participate in the care of this wonderful lady documented in this encounter Plan of Treatment Scheduled Referrals Name Type Priority Associated Diagnoses Orde r Schedule Referral to Ob-Senior C Software Developer Outpatient Referral Routine Personal history of breast cancer Ordered: 02/13/2016 documented as of this encounter Procedures Procedure Name Priority Date/Time Associated Diagnosis Comments DIAGNOSTIC RADIOLOGY SCAN 02/20/2016 12:00 AM EST LAB SCAN 02/13/2016 12:00 AM EST documented in this encounter Results * SCAN DOC: DIAGNOSTIC RADIOLOGY (02/20/2016 12:00 AM EST) Anatomical Region Laterality Modality Other Scanning Provider MEDIA MGR SCAN EXT O RDR/RSLT * SCAN DOC: LAB (02/13/2016 12:00 AM EST) Scanning Provider MEDIA MGR SCAN EXT O RDR/RSLT documented in this encounter Visit Diagnoses Diagnosis Malignant neoplasm of left female breast, unspecified site of breast Personal history of breast cancer Personal history of malignant neoplasm of breast Left shoulder pain, unspecified chronicity documented in this encounter Care Teams Deputy Prosecuting Attorney Relationship Specialty Start Date End Date Ag Trent MD [address] [place] [id number] PCP - General 02/02/14 documented as of this encounter
--- OUTSIDE RECORDS SUMMARY | 2024-02-17 15:57 | XMS_ITS | Encounter Summary ---
Author Organization [facility] Address [facility] [place] [address] Care Team Providers Care Getter Welder Name Role Phone Ag Trent MD Primary Care Provider [phone] Encounter Details Date Type Department Care Team (Late st Contact Info) Description 11/16/2014 Notes Only [place]ology [place] [address] Kirill Saavedra MD [facility] DR HEMATOLOGY AND ONCOLOGY [place] [id number] Social History Tobacco Use Types Packs/Day Years [...] on filedocumented in this encounter Care Teams Getter Welder Relationship Specialty Start Date End Date Ag Trent MD [address] [place] [address] PCP - General 02/02/14 documented as of this encounter
--- OUTSIDE RECORDS SUMMARY | 2024-02-17 15:57 | XMS_ITS | Encounter Summary ---
Author Organization [facility] Address [facility] [place] [address] Care Team Providers Care Business Systems Architect Name Role Phone Ag Trent MD Primary Care Provider Reason for Visit * Reason Comments Radiation Follow-up breast cancer Encounter Details Date Type Department Care Team (Late st Contact Info) Description 11/14/2016 3:15 PM EDT Office Visit Radiation Oncology at [address] [phone] Haley Robles, [address] RADIATION ONCOLOGY [place], [place] [id number] Malignant neoplasm of left breast in female, [...] Sign Reading Time Taken Comments Blood Pressure 144/80 11/14/2016 3:16 PM EDT Pulse 55 11/14/2016 3:16 PM EDT Temperature 36.9 ??C (98.4 ??F) 11/14/2016 3:16 PM ED T Respiratory Rate 18 11/14/2016 3:16 PM EDT Oxygen Saturation 97% 11/14/2016 3:16 PM EDT Inhaled Oxygen Concentration - - Weight 84.6 kg (186 lb 6.4 oz) 11/14/2016 3:16 P M EDT Height - - Body Mass Index 32.62 06/18/2016 1:32 PM EDT documented in this encounter Progress Notes * Haley Robles, FIRMWARE ARCHITECT - 11/14/2016 3:15 PM EDT Images from the original note were not included. Patient ID: Narda Rivera is a 66 y.o. female.breast ca, L, IDC w/lobular features, high gr, ER+CO+, [id number]-, s/p lumpectomy & SNB, pT2 pN1a, stage II, +extensive LVI. S/p adjuvant chemo and radiation therapy. She was treated with 60.4 Gy which was completed on 10/18/2014. She is now on tamoxifen for hormone therapy. She is in clinic for scheduled followup. HPI 63 y/o f who underwent a screening mmg in 01/11, w/[facility] interp: L breast lesion 1, SUSPICIOUS, 14 mm mass @ 0100. L breast lesion 2, SUSPICIOUS, 3.8 mm mass @ 0100, 12 mm from lesion 1. R breast neg. ?? 02/02/14 US guided core needle bxs L breast mass @ 0100. ?? Path: Invasive mammary ca w/ductal & lobular features. LVI present. ER+CO+. [id number] IHC neg. ?? 02/08/14 B breast MRI: [...] = 0.6 - 0.8 cm; pT2 pN1a. Vxz2chy FISH neg. Comment: Multiple satellite foci of [...] met dz. ?? Chemotherapy detail: ONCN ONCOLOGY (AMB) 03/29/2014 03/30/2014 Day, Cycle Day 1, Cycle 1 Day 2, Cycle 1 cyclophosphamide (CYTOXAN) IV 600 mg/m2/dose = 1,182 mg DOXOrubicin (ADRIAMYCIN) IV 60 mg/m2/dose = 118.2 mg PACLitaxel (TAXOL) IV pegfilgrastim (NEULASTA) SubQ 6 mg ONCN ONCOLOGY (AMB) 04/12/2014 04/13/2014 Day, Cycle Day 1, Cycle 2 Day 2, Cycle 2 cyclophosphamide (CYTOXAN) IV 600 mg/m2/dose = 1,182 mg DOXOrubicin (ADRIAMYCIN) IV 60 mg/m2/dose = 118.2 mg PACLitaxel (TAXOL) IV pegfilgrastim (NEULASTA) SubQ 6 mg ONCN ONCOLOGY (AMB) 04/25/2014 04/27/2014 Day, Cycle Day 1, Cycle 3 Day 2, Cycle 3 cyclophosphamide (CYTOXAN) IV 600 mg/m2/dose = 1,182 mg DOXOrubicin (ADRIAMYCIN) IV 60 mg/m2/dose = 118.2 mg PACLitaxel (TAXOL) IV pegfilgrastim (NEULASTA) SubQ 6 mg ONCN ONCOLOGY (AMB) 05/10/2014 05/11/2014 Day, Cycle Day 1, Cycle 4 Day 2, Cycle 4 cyclophosphamide (CYTOXAN) IV 600 mg/m2/dose = 1,182 mg DOXOrubicin (ADRIAMYCIN) IV 60 mg/m2/dose = 118.2 mg PACLitaxel (TAXOL) IV pegfilgrastim (NEULASTA) SubQ 6 mg ONCN ONCOLOGY ([facility]) 05/24/2014 05/31/2014 Day, Cycle Day 1, Cycle 1 Day 8, Cycle 1 cyclophosphamide (CYTOXAN) IV DOXOrubicin (ADRIAMYCIN) IV PACLitaxel (TAXOL) IV 80 mg/m2/dose = 154 mg 80 mg/m2/dose = 154 [facility]im [facility]ASTA[facility] 06/07/2014 06/14/2014 Day, Cycle Day 15, Cycle 1 Day 1, Cycle 2 cyclophosphamide (CYTOXAN) IV DOXOrubicin (ADRIAMYCIN) IV PACLitaxel (TAXOL) IV 80 mg/m2/dose = 154 mg 80 mg/m2/dose = 154 mg pegfilgrastim (NEULASTA) [facility] ONCN ONCOLOGY ([facility]) 06/21/2014 06/28/2014 Day, Cycle Day 8, Cycle 2 Day 15, Cycle 2 cyclophosphamide (CYTOXAN) IV DOXOrubicin (ADRIAMYCIN) IV PACLitaxel (TAXOL) IV 80 mg/m2/dose = 154 mg 80 mg/m2/dose = 154 mg pegfilgrastim (NEULASTA) [facility] ONCN ONCOLOGY ([facility]) 07/05/2014 07/12/2014 Day, Cycle Day 1, Cycle 3 Day 8, Cycle 3 cyclophosphamide (CYTOXAN) IV DOXOrubicin (ADRIAMYCIN) IV PACLitaxel (TAXOL) IV 80 mg/m2/dose = 154 mg 80 mg/m2/dose = 154 mg pegfilgrastim (NEULASTA) [facility] ONCN ONCOLOGY ([facility]) 07/19/2014 07/26/2014 Day, Cycle Day 15, Cycle 3 Day 1, Cycle 4 cyclophosphamide (CYTOXAN) IV DOXOrubicin (ADRIAMYCIN) IV PACLitaxel (TAXOL) IV 80 mg/m2/dose = 154 mg 80 mg/m2/dose = 154 mg pegfilgrastim (NEULASTA) [facility] ONCN ONCOLOGY ([facility]) 08/02/2014 08/09/2014 Day, Cycle Day 8, Cycle [...] due to increased arthralgias Treatment summary completed Chemotherapy and Supportive Care Treatment History BREAST CANCER NOTES 09/07/2015 Method of Cancer Detection abnormal mammogram of the left breast 12/2013 Menopausal Status at Diagnosis post-menopausal Date of Diagnostic Biopsy 02/02/2014 Local Surgery Lumpectomy done by Dr Cohen at [facility] Axillary Management [place] nodes alone--2+ of 2 sentinel nodes removed. [...] mammogram 05/04/2015--benign 05/15/2016- mammogram--no evidence of malignancy 2. Osteopenia: borderline, T [...] BREAST BIOPSY Left 01/2014 ??? BREAST LUMPECTOMY ??? PRO BX/REMV, LYMPH NODE, DEEP AXILL Left 02/22/2014 BIOPSY OR EXCISION OF LYMPH NODE(S), OPEN, DEEP AXILLARY NODE(S) performed by Ibrahima Cohen MD at [facility] MAIN OR ??? PRO IDENTIFY SENTINEL NODE Left 02/22/2014 SENTINEL NODE INJECTION performed by Ibrahima Cohen MD at [facility] MAIN OR ??? PRO MASTECTOMY, PARTIAL Left 02/22/2014 MASTECTOMY PARTIAL performed by Ibrahima Cohen MD at [facility] MAIN OR Allergies Allergen Reactions ??? Coumadin [Warfarin] Severe bleeding Medications 11/14/16 1631 Medication Sig Taking? turmeric root extract 500 mg Capsule Take 500 mg by mouth daily. Yes CALCIUM CARBONATE/VITAMIN D3 (VITAMIN D-3 ORAL) Take by mouth daily. Yes tamoxifen (NOLVADEX) 20 mg Tablet Take 1 tablet by mouth daily. Yes LEVOTHYROXINE SODIUM (SYNTHROID ORAL) Take 200 mcg by mouth daily. Yes lactobacillus (BACID) Capsule Take 1 tablet [...] mouth daily as needed. Reported on 03/12/2016 LORazepam (ATIVAN) 0.5 mg Tablet Take 1 tablet by mouth every 6 hours as needed for Anxiety (nausea). Patient not taking: Reported on 03/12/2016 Social History Social History ??? Marital status: [...] ??? Not on file Social History Narrative Update of social history Living Situation/Daily Activities/Transportation: Pt live alone and manages her daily chores and activities. She does drive. ??Work/Finances/Insurance: Pt is retired. She is able to manage her financial obligations. She has Medicare and a secondary insurance. She has utilized the SHIP services at [facility] and referred her back to there to speak with her contact. ??Advance Directives: pt has completed her advance directive. Per her requested obtained a copy from [facility]. Pt reviewed the document and indicated she wants to make changes. She was given a new [place] advance directive booklet/form to review and complete. Utilization of Community Resources: [facility] services. Pt receives her primary care at the [facility]. Pt agreeable to participate in the [place] Oncology Project. Discussed project and provided her with the brochure. SEAN Galeano RN, [facility] and informed her pt willing to participate. Adjustment to Illness/Mental Health Issues: Coping well at this time. ?? Identified Needs: With insurance related questions and referred to [facility] SHIP staff who she has utilized in the past. ? Interim History: Ms Rivera indicates that for the last couple of days that she has had increased palpitations and a sense of anxiety. It was worse yesterday and a bit better today. She has no associated chest pain. She has had some shortness of breath. She feels like her heart is racing. She has had some mild lower ext. Swelling--but this by report is not new. She had some blood work done today at [facility] for her upcoming appointment with Dr Saavedra and we will request these results. She has been off her AI due to severe arthralgias with worse symptoms in her ankles. She was started on GRAHAM and is tolerating this well. She reports no issues with her breast. She has occ mild tenderness. She has no masses, no nipple discharge, no ROM restriction with her left shoulder, no lymphedema. Review of Systems Constitutional: Negative. Negative for activity change, appetite change, chills, diaphoresis, fatigue, fever and unexpected weight change. Has been trying to exercise daily on stationary bike Weight up HENT: Negative. Respiratory: Positive for shortness of breath. Negative for cough and chest tightness. Cardiovascular: Positive for palpitations and leg swelling. Negative for chest pain. Increase in palpitations Gastrointestinal: Positive for constipation. Genitourinary: Negative for vaginal bleeding and vaginal discharge. Musculoskeletal: Negative for arthralgias and back pain. Joint pain is slightly less since starting tumeric Skin: Negative. Neurological: Negative. Negative for dizziness, weakness, light-headedness and headaches. Hematological: Negative. Does not bruise/bleed easily. Psychiatric/Behavioral: Positive for sleep disturbance. Has needed sleeping pill x 30 years Vitals Office Visit from 11/14/2016 in [facility] Radiation Oncology Weight - Scale 84.6 kg (186 lb 6.4 oz) Temp 36.9 ??C (98.4 ??F) Temp Source Oral Heart Rate 55 Heart Rate Source NIBP Resp 18 BP 144/80 BP Location Right arm Patient Position Sitting SpO2 97 % Objective: Physical Exam Constitutional: She is oriented to person, place, and time. She appears well- developed and well-nourished. No distress. HENT: Head: Normocephalic and atraumatic. Eyes: Conjunctivae and EOM are normal. Right eye exhibits no discharge. Left eye exhibits no discharge. No scleral icterus. Neck: Neck supple. Cardiovascular: Normal rate and normal heart sounds. An irregular rhythm present. Occasional extrasystoles are present. Exam reveals no gallop and no friction rub. No murmur heard. Pulmonary/Chest: Effort normal and breath sounds normal. No respiratory distress. She has no wheezes. She has no rales. She exhibits no tenderness. Abdominal: Soft. Bowel sounds are normal. She exhibits no distension. There is no tenderness. Musculoskeletal: She exhibits edema. She exhibits no tenderness. Mild lower extremity edema Lymphadenopathy: Head (right side): No submental, no [...] ADL Cosmetic Result: ___X__Excellent; Good;____ Fair; ____Poor 05/15/2016- mammogram FINDINGS: Breast density:The breasts are heterogeneously dense which may obscure small masses ?? There are no suspicious microcalcifications, masses, or areas of distortion. There are post surgical changes in the left breast. ?? CONCLUSION: No mammographic evidence of malignancy. ?? RECOMMENDATION:Routine screening. 11/14/2016- WBC=4.81, RBC=4.96, HGB=14.8, HCT=42.7DJFN=552, CA=8.8, LJD=090, BUN=16, CREAT=0.63, EGFR=>60, TPROT=7.0, ALB=3.3, T BILI=0.16, ALKP=94, WZ=819, K=3.9, HW=400, CO2=25.4, ANIO GAP=10.6, AST=16, ALT=20 Assessment and Plan: Narda Rivera is a torri 66 y.o. female.breast ca, L, IDC w/lobular features, high gr, ER+CO+, [id number]-, s/p lumpectomy & SNB, pT2 pN1a, stage II, +extensive LVI. S/p adjuvant chemo with ddAC and taxol followed by radiation therapy. She was treated with 60.4 Gy which was completed on 10/18/2014. She is on tamoxifen for hormone therapy. She had a benign mammogram 05/2016. There is JACINDA. She is to have a repeat mammogram in May 2017. She continues with GRAHAM which she is tolerating well. For the last couple of days patient has been having palpitations and a sense that her heart is racing. Call was made to her PCP office Patient's most recent TSH was in May and was 0.62. They will arrange for patient to be seen for an EKG and for further evaluation. Patient is to return to radiation oncology in one year. She will be seen by medical oncology in theinterim. documented in this encounter Plan of Treatment Not on file documented as of this encounter Procedures Procedure Name Priority Date/Time Associated Diagnosis Comments LAB SCAN 11/14/2016 12:00 AM EDT documented in this encounter Results * SCAN DOC: LAB (11/14/2016 12:00 AM EDT) Narrative 11/14/2016 12:00 AM EDT Ordered by an unspecified provider. Scanning Provider MEDIA MGR SCAN EXT O RDR/RSLT documented in this encounter Visit Diagnoses Diagnosis Malignant neoplasm of left breast in female, estrogen receptor positive, unspecified site of breast documented in this encounter Care Teams Business Systems Architect Relationship Specialty Start Date End Date Ag Trent MD [address] [place] [address] PCP - General 02/02/14 documented as of this encounter
--- OUTSIDE RECORDS SUMMARY | 2024-02-17 15:57 | XMS_ITS | Encounter Summary ---
Author Organization [facility] Address [facility] [place] [address] Care Team Providers Care Stone Driller Name Role Phone Ag Trent MD Primary Care Provider [phone] Reason for Visit * Reason Comments Radiation Treatment Encounter Details Date Type Department Care Team (Late st Contact Info) Description 10/18/2014 10:00 AM EDT Office Visit Radiation Oncology at [address] [address] Clau Alfonso MD [facility] [place] [address] Breast cancer, female, left Discharge Disposition: Home [...] Sign Reading Time Taken Comments Blood Pressure 108/61 10/18/2014 10:00 AM EDT Pulse 66 10/18/2014 10:00 AM EDT Temperature 37 ??C (98.6 ??F) 10/18/2014 10: 00 AM EDT Respiratory Rate 16 10/18/2014 10:0 0 AM EDT Oxygen Saturation 98% 10/18/2014 10: 00 AM EDT Inhaled Oxygen Concentration - - Weight 78.8 kg (173 lb 12.8 oz) 015 10:00 AM EDT Height - - Body Mass Index 30.41 08/09/2014 9:02 AM EDT documented in this encounter Patient Instructions * Patient Instructions* Novosel, Susana FILOMENA Gallo - 10/18/2014 10:26 AM EDT DONE WITH TREATMENT INSTRUCTIONS AFTER RECEIVING RADIATION TO THE BREAST Your skin reaction in the treatment field can continue to progress over the next two weeks before it improves. Continue to apply the cream your nurse gave you for two weeks after treatment and until all signs of redness is gone. If you experience skin peeling, apply mepilex to peeling area to absorb drainage and assist in healing. Remove mepilex for showers and change if soiled. Call us if you are having difficulty managing any skin reaction. Discomfort from radiation to the breast is usually relieved by ibuprofen or Tylenol. Call us if youhave discomfort not relieved by these medications. Treatment related fatigue should resolve in 2-4 weeks after treatment is completed. Practice good sleep hygiene habits and take rest periods as needed. Some patients find walking for 30 min daily increases their energy level. If you notice skin tightness, decreased ability to use your arm or swelling in the arm of the treated side, notify us and we will arrange a physical therapy consult. Avoid blood pressure measurements and blood draws in the arm on the treated side. Some people find comfort in joining a support group to meet women who have had breast cancer and share their experiences. If you are interested, tell your nurse and she will assist you in finding onein your area. You will get a call from a secretary book keeper to schedule your follow up appointment. Radiation Oncology [place], [place]: [phone] Radiation Oncology [place], [place] After hours for emergency for either location: [phone], ask to speak with the radiation oncologist systems integration engineer Please continue the madhu's cream. Please do not use deodorant other than Timbo's on your left underarm. Please do not use a straight/regular razor on your left underarm. An electric razor is ok. Please do not expose the irradiated area to sun. Please do not swim in chlorinated water. Saltwater or freshwater is ok. We will mail you a letter with an appointment to see me in 1 - 2 months. documented in this encounter Progress Notes * Clau Alfonso MD - 10/18/2014 10:28 AM EDT DIAGNOSIS: Breast, L, IDC w/lobular features; high gr, ER+MN+, Dxp2zrv-, s/p lumpectomy & SNB, pT2 pN1a, stage II, +extensive LVI. S/p adjuvant chemo. CURRENT TREATMENT DOSE: 50.4 Gy L supraclav, L axilla, L breast; 60.4 Gy lumpectomy bed L breast ANTICIPATED TOTAL DOSE: 50.4 Gy L supraclav, L axilla & L breast; 60.4 Gy lumpectomy bed L breast Current # of xrt received: 28 L supraclav, L axilla & L breast; 33 lumpectomy bed L breast Anticipated total # of xrt txs: 28 L supraclav, L axilla & L breast; 33 lumpectomy bed L breast Evaluation of port verification films: Approved. For details, see electronic film record in [employer]. Changes in Medical Condition: Sore throat & odynophagia have decreased over past wk; continues to take prilosec & tums regularly, occasionally takes gaviscon & uninterested in taking additional med for it; eats soft solids ok. Skin w/in irrad'd area itchy; itchiness relieved by madhu's cream. Itchy swelling on R arm present last wk has cleared. Applies cool packs to L breast & to Rarm. Pain?: No. Physical Exam: BP 108/61 Pulse 66 Temp(Src) 37 ??C (98.6 ??F) (Oral) Resp 16 Wt 78.835 kg (173 lb 12.8 oz) SpO2 98% A&Ox3, in NAD. Mild erythema w/in irrad'd area, w/moderate folliculitis in UIQ; skin intact. Erythematous circular area present last wk on R arm has cleared. Xrays: 09/02/14 CT ch to eval for PE: No PE. Questionable small area of RLL infiltration, atelectasis&/or scarring. Response to xrt: As expected. Irradiation Related Symptoms: Esophagitis. Skin rxn. Treatment for Symptom Control: Gaviscon. Prilosec. Tums. Madhu's cream. Pain Management: Gaviscon. Recommendation on Continuing Course of xrt: Completes xrt today. Skin care instructions given. Rtc 1 - [address] Saavedra 11/08/14. sagrario Campo C. Gates 11/16/14. Her completed course of xrt can be summarized as follows: 08/30/14 - 10/18/14, 50.4 Gy/28 fxs using deep inspiration breath hold (DIBH) to L supraclavicular fossa & L axilla with 10 MV Xray externalbeam & to L breast with 6 & 10 MV Xray external beam, followed by 10 Gy/5 fxs boost to lumpectomy bed, using free breathing technique with 10 MV Xray external beam, boosting lumpectomy bed to60.4 Gy/33 fxs. documented in this encounter Plan of Treatment Not on file documented as of this encounter Visit Diagnoses Diagnosis Breast cancer, female, left documented in this encounter Care Teams Stone Driller Relationship Specialty Start Date End Date Ag Trent MD [address] [place] [address] PCP - General 02/02/14 documented as of this encounter
--- OUTSIDE RECORDS SUMMARY | 2024-02-17 15:57 | XMS_ITS | Encounter Summary ---
Author Organization [facility] Address [facility] [place] [address] Care Team Providers Care Salesforce Business Analyst Name Role Phone Ag Trent MD Primary Care Provider [phone] Encounter Details Date Type Department Care Team (Latest Contact Info) Description 05/04/2015 2:39 PM EST - 05/04/2015 11:59 PM [facility] Hospital [place] [id number] Ibrahima Cohen MD [facility] [place] [address] Personal history of malignant neoplasm of breast Discharge Disposition: Home Social History Tobacco [...] by mouth daily. anastrozole (ARIMIDEX) 1 mg TabletIndications:Brittney st cancer, female, left Take 1 tablet by mouth daily. 90 tablet 3 03/16/2015 10/13/2015 UNABLE TO FIND Take 1 tablet by mouth daily. Milk thistle 11/30/2015 acetaminophen (TYLENOL) 325 mg Tablet Take 650 mg by mouth every 4 hours as needed for Pain. 05/16/2015 LORazepam (ATIVAN) 0.5 mg TabletIndications:Hetal hudson neoplasm [...] MAMMO SCREENING CAD AND NATHEN BILATERAL Routine 05/04/2015 2:58 PM EST Personal history of malignant neoplasm of breast documented in this encounter Results * Mammo Digital Bilateral Screening With CAD and Tomosynthesis (05/04/2015 2:58 PM EST) Anatomical Region Laterality Modality Breast Bilateral Mammography Narrative 05/04/2015 5:44 PM EST REASON FOR EXAM: Screening. History of left breast cancer. TECHNIQUE: CC and MLO views were obtained of both breasts. Computer aided detection was used. 3D tomosynthesis images were obtained in addition to 2D images. Comparison: The study is compared with prior images. FINDINGS: Breast density:The breasts are heterogeneously dense, which may obscure small masses. There are no suspicious microcalcifications, masses, or areas of distortion. There are post treatment changes in the left breast. CONCLUSION: No mammographic evidence of malignancy. RECOMMENDATION: Routine screening. BIRADS CATEGORY 2: BENIGN FINDINGS * ??The [place] [employer] and The Society of Breast Imaging recommend annual screening beginning at age 40 for the general female population. * ??Screening should continue as long as a woman is in good health and is expected to live 10 more years or longer. * ??All women should be familiar with the known benefits, limitations, and potential harms linked to breast cancer screening. They also should know how their breasts normally look and feel and report any breast changes to a health care provider right away. * ??Some women, because of their family history, a genetic tendency, or certain other factors, should be screened with MRIs along with mammograms. (The number of women who fall into this category is very small.) The patient and health care provider should discuss the patient history and decide if earlier screening and breast MRI are appropriate. Ibrahima Cohen MD IMG MAMMO ORDERABLES documented in this encounter Visit Diagnoses Diagnosis Personal history of malignant neoplasm of breast documented in this encounter Care Teams Salesforce Business Analyst Relationship Specialty Start Date End Date Ag Trent MD [address] [place] [address] PCP - General 02/02/14 documented as of this encounter
--- OUTSIDE RECORDS SUMMARY | 2024-02-17 15:57 | XMS_ITS | Encounter Summary ---
Author Organization [facility] Address [facility] [place] [address] Care Team Providers Care Wound/Ostomy Clinical Nurse Specialist Name Role Phone Ag Trent MD Primary Care Provider [phone] Reason for Visit * Reason Comments Follow-up Encounter Details Date Type Department Care Team (Late st Contact Info) Description 06/18/2016 1:30 PM EDT Office Visit Hematology/Oncology at [address] [address] Kirill Saavedra MD [facility] DR [place] [address] Personal history of breast cancer Social History [...] Sign Reading Time Taken Comments Blood Pressure 115/51 06/18/2016 1:32 PM EDT Pulse 57 06/18/2016 1:32 PM EDT Temperature 36.8 ??C (98.2 ??F) 06/18/2016 1:32 PM ED T Respiratory Rate 16 06/18/2016 1:32 PM EDT Oxygen Saturation 98% 06/18/2016 1:32 PM EDT Inhaled Oxygen Concentration - - Weight 80.3 kg (177 lb) 06/18/2016 1:32 PM EDT Height 161 cm (5' 3.39) 06/18/2016 1:32 PM EDT Body Mass Index 30.97 06/18/2016 1:32 PM EDT documented in this encounter Progress Notes * Kirill Saavedra MD - 06/18/2016 1:30 PM EDT Diagnosis: Left 3.5 cm IDC with lobular features, lymphovascular invasion present, SLN 2/2 positive, ER+/AK+, Her-2 unaplified. Subjective:I feel fine HPI: Ms. Narda Rivera is 65 y.o. female Referred to us for consultation by Dr. Cohen on new diagnosis of breast cancer. She initially presenteda mass in her upper outer left breast with calcificationson a screening mammogram in December 2013.The main mass wasbiopsied showing infiltrating ductal and lobular carcinoma, ER positive, [id number]. MRI was then performed that showed the mass with multiple small satellites around it. Mrs. Rivera underwent left partial mastectomy and sentinel lymph nodebiopsy on February 23, 2014. Postoperative course was uneventful. she completed radiation on October 18. Interval history: Ms. Rivera is in clinic today for followup appointment on breast cancer. He still complains some mild stiffness in her joints. Narda is compliant with tamoxifen and tolerates it well. She denies any other pain. PMH: No interval changes Left knee replacement in August 2015 Hypothyroidism on Synthroid Patient Active Problem List Diagnosis ??? Hypothyroidism ??? Malignant neoplasm of left female breast (BREAST CANCER) Diagnosis: Left 3.5 cm IDC with lobular features, lymphovascular invasion present, SLN 2/2 positive, ER+/AK+, Her-2 unaplified, T2,at least N1a, Mx Treatment:s/p [...] to auscultation bilaterally, respirations unlabored Chest Wall: Breast examination deferred. Recently done by Dr. Cohen. Heart: Regular rate and rhythm, S1, S2 [...] or inguinal areas. Neurologic: Normal Vitals BP 115/51 (Patient Position: Sitting) Pulse 57 Temp 36.8 ??C (98.2 ??F) (Oral) Resp 16 Ht 161 cm (5' 3.39) Wt 80.3 kg (177 lb) SpO2 98% BMI 30.97 kg/m2 Karnofsky score is 90 [...] count: Mitotic count: Score = 3 Total [place] Score: [place] Grade III: 8-9 points DCIS: Ductal Carcinoma [...] slide reconstruction) MICROCALCIFICATIONS: Present in nonneoplastic tissue ER/AK/HER2: ER/AK/Her2 Comment: Please see prior biopsy [id number]. HER2 FISH will be repeated on this [...] cancer cells with immunostaining) Stain Intensity: Strong AK immunoreactivity: Positive (11-90% cancer cells with immunostaining) Stain Intensity: Strong NEGATIVE FOR HER2/DEL AMPLIFICATION Labs: Sodium 139, potassium 3.6, BUN 17, creatinine 0.54, [place] 9.1, total bilirubin 0.13, AST 13, ALT 23, alkaline phosphatase 106, total protein 7.0, albumen 3.4. CBC 4.83, hemoglobin 15.2, platelet count 264, ANC 3.04. Imagin05/15/16 FINDINGS: Breast density:The breasts are heterogeneously [...] features, lymphovascular invasion present, SLN 2/2 positive, ER+/AK+, Her-2 unaplified, T2,at least N1a, Mx Treatment:s/p [...] - January, started Tamoxifen 20 mg daily. Mild elevation of alkaline phosphatase and new shoulder/shoulder blade pain. Bone scan is negative for mets. Mrs. Rivera tolerated tamoxifen well. She had [employer] evaluation. I'll see her back in 3 monthswas blood work. She will see Dr. Cohen in May for annual mammogram. JACINDA. Ms. Rivera tolerates Tamoxifen well. Continue tamoxifen daily. I'll see her back [...] Priority Date/Time Associated Diagnosis Comments LAB SCAN 06/18/2016 12:00 AM EDT documented in this encounter Results * SCAN DOC: LAB (06/18/2016 12:00 AM EDT) Narrative 06/18/2016 12:00 AM EDT Ordered by an unspecified provider. Scanning Provider MEDIA MGR SCAN EXT O RDR/RSLT documented in this encounter Visit Diagnoses Diagnosis Personal history of breast cancer Personal history of malignant neoplasm of breast documented in this encounter Care Teams Wound/Ostomy Clinical Nurse Specialist Relationship Specialty Start Date End Date Ag Trent MD [address] [place] [address] PCP - General 02/02/14 documented as of this encounter
--- OUTSIDE RECORDS SUMMARY | 2024-02-17 15:57 | XMS_ITS | Encounter Summary ---
Author Organization [facility] Address [facility] [place] [address] Care Team Providers Care Scale Technician Name Role Phone Ag Trent MD Primary Care Provider [phone] Encounter Details Date Type Department Care Team (Late st Contact Info) Description 11/16/2014 Notes Only Hematology [place] [address] Kirill Saavedra MD [facility] DR HEMATOLOGY AND ONCOLOGY [place] [id number] Social History Tobacco Use Types Packs/Day Years [...] Progress Notes * Yulissa Mcguire RN - 11/17/2014 12:01 PM EDT Research Nurse: Week 32 / End of Study (EOS) Control ARM 11/16/2014 [id number]: Effects of an Exercise Intervention on Physical Activity during Chemotherapy for Patients with Early Stage Breast Cancer Narda arrived having fasted since last evening for her EOS labs (fastin insulin, CRP, CBC and CMP).The remaining EOS requirements were then completed: resting metabolic rate (RMR) test, body measurements, completion of questionnaires and the body composition analysis (BCA). Latter test was done byMai Pizarro (see separate note). RMR was done using weight/height from 11/08/14: weight 78.7 kg (173.5 lbs); height 161 cm (63.4 inches). BMI 30.73 Body measurements: Waist 93 cm Hip 106 cm WHR 0.88 RHR 60 Narda is keeping the pedometer and information booklet and I thanked her for her participation in this 8 month long study. documented in this encounter Plan of Treatment Not on file documented as of this encounter Visit Diagnoses Not on filedocumented in this encounter Care Teams Scale Technician Relationship Specialty Start Date End Date Ag Trent MD [address] [place] [address] PCP - General 02/02/14 documented as of this encounter
--- OUTSIDE RECORDS SUMMARY | 2024-02-17 15:57 | XMS_ITS | Encounter Summary ---
Author Organization [facility] Address [facility] [place] [address] Care Team Providers Care Kitchenhand Name Role Phone Ag Trent MD Primary Care Provider [phone] Encounter Details Date Type Department Care Team (Late st Contact Info) Description 05/16/2015 2:30 PM EST Office Visit Hematology/Oncology at [address] [phone] Kirill Saavedra MD [facility] [place] [address] Meenakshi Sanchez, AUTOMOTIVE MECHANICAL ENGINEER [address] [facility] [place] [address] Malignant neoplasm of left female breast, unspecified site of breast Social History Tobacco [...] Sign Reading Time Taken Comments Blood Pressure 122/56 05/16/2015 2:40 PM EST Pulse 59 05/16/2015 2:40 PM EST Temperature 36.7 ??C (98.1 ??F) 05/16/2015 2:40 PM ES T Respiratory Rate 16 05/16/2015 2:40 PM EST Oxygen Saturation 98% 05/16/2015 2:40 PM EST Inhaled Oxygen Concentration - - Weight 81.6 kg (180 lb) 05/16/2015 2:40 PM EST Height 161 cm (5' 3.39) 05/16/2015 2:40 PM EST Body Mass Index 31.5 05/16/2015 2:40 PM EST documented in this encounter Progress Notes * Meenakshi Sanchez, AUTOMOTIVE MECHANICAL ENGINEER - 05/16/2015 2:52 PM EST Diagnosis: Left 3.5 cm IDC with lobular features, lymphovascular invasion present, SLN 2/2 positive, ER+/MS+, Her-2 unaplified. Subjective:When will I feel normal again? HPI: Ms. Narda Rivera is 64 y.o. female Referred to us for consultation by Dr. Cohen on new diagnosis of breast cancer. She initially presenteda mass in her upper outer left breast with calcificationson a screening mammogram in December 2013.The main mass wasbiopsied showing infiltrating ductal and lobular carcinoma, ER positive, [id number]. MRI was then performed that showed the mass with multiple small satellites around it. Mrs. Rivera underwent left partial mastectomy and sentinel lymph nodebiopsy on February 23, 2014. Postoperative course was uneventful. She completed radiation on October 18. Interval history: Ms. Rivera is in clinic today for followup appointment. She stopped Arimidex after2 or 3 days in October, as she felt drowsy and had some tingling in her extremities. Mrs. Riverawas diagnosed with hypothyroidism and started on Synthroid. She felt better and resumed Arimidex with no significant side effects. PMH: Hypothyroidism on Synthroid- recently regulated the dose. Patient Active Problem List Diagnosis ??? Malignant neoplasm of left female breast (BREAST CANCER) Diagnosis: Left 3.5 cm IDC with lobular features, lymphovascular invasion present, SLN 2/2 positive, ER+/MS+, Her-2 unaplified, T2,at least N1a, Mx Treatment:s/p [...] change, fatigue and unexpected weight change. HEENT: no issues. Eyes: Negative. Respiratory: Negative for cough, shortness of breath and wheezing. Cardiovascular: Negative for chest pain, palpitations and leg swelling. Gastrointestinal: no issues Genitourinary: Negative for dysuria and difficulty urinating. Musculoskeletal: Negative. Skin: mild red rash on arms and upper chest Neurological: no issues today. Hematological: Negative for adenopathy. 10 systems were reviewed and otherwise negative General: AAAx3, in NAD Head: Normocephalic, without obvious abnormality, atraumatic Eyes: PERRL, conjunctiva/corneas clear, EOM's intact Nose: Nares normal, septum midline Throat: Lips, mucosa, and tongue normal; teeth and gums normal Neck: Supple, symmetrical, trachea midline, no adenopathy Back: Symmetric, no curvature, ROM normal. Lungs: Clear to auscultation bilaterally, respirations unlabored ; chest wall with well healed incision from port revision. Heart: Regular rate and rhythm, S1, S2 normal, no murmur, rub or gallop Abdomen: Soft, non-tender, no masses, no organomegaly Extremities: Extremities normal, atraumatic, no cyanosis or edema Skin: Skin color, texture, turgor normal, no rashes or lesions Lymph nodes: Cervical, supraclavicular, and axillary nodes normal Neurologic: Normal; nl patellar reflexes; train controller grossly intact Vitals BP 122/56 mmHg Pulse 59 Temp(Src) 36.7 ??C (98.1 ??F) (Oral) Resp 16 Ht 161 cm (5' 3.39) Wt 81.647 kg (180 lb) BMI 31.50 kg/m2 SpO2 98% Weight Wt Readings from Last 3 Encounters: 05/16/15 81.647 kg (180 lb) 02/07/15 82.101 kg (181 lb) 12/16/14 81.647 kg (180 lb) Karnofsky score is 90 Pathology: ---Pathologic Diagnosis--- [...] slide reconstruction) MICROCALCIFICATIONS: Present in nonneoplastic tissue ER/MS/HER2: ER/MS/Her2 Comment: Please see prior biopsy [id number]. HER2 FISH will be repeated on this [...] cancer cells with immunostaining) Stain Intensity: Strong MS immunoreactivity: Positive (11-90% cancer cells with immunostaining) Stain Intensity: Strong NEGATIVE FOR HER2/DEL AMPLIFICATION Labs: CBC and CMP are WNL and scanned in Vit D pending TSH- up to 9.56 - pt/PCP notified for fwup as we did not order this to be done. Imagin02/02/15, DEXA scan left hip T score -1.0 [...] features, lymphovascular invasion present, SLN 2/2 positive, ER+/MS+, Her-2 unaplified, T2,at least N1a, Mx Treatment:s/p [...] completed weekly Taxol XRT 08/30/14 - 10/18/14 JACINDA. Continue Arimidex 1mg daily. Next visit in 3 months 2. Osteopenia: borderline, T -1.0. Calcium makes her constipated. Recommend calcium rich food. Willrepeat DEXA scan in 2 years (01/2017). vit D level normal- 60 today (range 18-78) Plan: 1. Arimidex 1 mg daily. 2. Next visit with CBC, CMP in 3 months Meenakshi Sanchez, MSN, DECISION SUPPORT ANALYST, AOCN [facility]/[address] [place] [address] documented in this encounter Plan of Treatment Not on file documented as of this encounter Visit Diagnoses Diagnosis Malignant neoplasm of left female breast, unspecified site of breast documented in this encounter Care Teams Kitchenhand Relationship Specialty Start Date End Date Ag Trent MD [address] [place] [address] PCP - General 02/02/14 documented as of this encounter
--- OUTSIDE RECORDS SUMMARY | 2024-02-17 15:57 | XMS_ITS | Encounter Summary ---
Author Organization [facility] Address [facility] [place] [address] Care Team Providers Care Worldwide Chief Creative Officer Name Role Phone Ag Trent MD Primary Care Provider [phone] Encounter Details Date Type Department Care Team (Late st Contact Info) Description 10/04/2014 11:30 AM EDT Office Visit Radiation Oncology at [address] [phone] Clau Alfonso MD [facility] [place] [address] Breast cancer, female, left Discharge Disposition: Home [...] Sign Reading Time Taken Comments Blood Pressure 124/65 10/04/2014 11:41 AM EDT Pulse 67 10/04/2014 11:41 AM EDT Temperature 36.9 ??C (98.4 ??F) 10/04/2014 11:41 AM E DT Respiratory Rate 18 10/04/2014 11:41 AM EDT Oxygen Saturation 98% 10/04/2014 11:41 AM EDT Inhaled Oxygen Concentration - - Weight - - Height - - Body Mass Index - - documented in this encounter Progress Notes * Clau Alfonso MD - 10/04/2014 11:51 AM EDT DIAGNOSIS: Breast, L, IDC w/lobular features; high gr, ER+PA+, Hkf9ate-, s/p lumpectomy & SNB, pT2 pN1a, stage II, +extensive LVI. S/p adjuvant chemo. CURRENT TREATMENT DOSE: 43.2 Gy L supraclav, L axilla, L breast ANTICIPATED TOTAL DOSE: 50.4 Gy L supraclav, L axilla & L breast; 60.4 Gy lumpectomy bed L breast Current # of xrt received: 24 Anticipated total # of xrt txs: 28 L supraclav, L axilla & L breast; 33 lumpectomy bed L breast Evaluation of port verification films: Approved. For details, see electronic film record in [employer]. Changes in Medical Condition: Still w/sore throat & odynophagia; both symptoms w/o cell changer past wk; takes gaviscon & prilosec & uninterested in taking additional med for it; eats softsolids ok. Skin w/in irrad'd area itchy; itchiness relieved by madhu's cream. No lightheadedness. Pain?: No. Physical Exam: BP 124/65 Pulse 67 Temp(Src) 36.9 ??C (98.4 ??F) (Oral) Resp 18 SpO2 98% A&Ox3, in NAD. Mild erythema w/in irrad'd area, w/moderate folliculitis in UIQ; skin intact. Xrays: 09/02/14 CT ch to eval for PE: No PE. Questionable small area of RLL infiltration, atelectasis&/or scarring. Response to xrt: As expected. Irradiation Related Symptoms: Esophagitis. Skin rxn. Treatment for Symptom Control: Gaviscon. Prilosec. Tums. Madhu's cream. Pain Management: Gaviscon. Recommendation on Continuing Course of xrt: Cont. Reviewed precaution re protecting irrad'd skin from sun exposure. documented in this encounter Plan of Treatment Not on file documented as of this encounter Visit Diagnoses Diagnosis Breast cancer, female, left documented in this encounter Care Teams Worldwide Chief Creative Officer Relationship Specialty Start Date End Date Ag Trent MD [address] [place] [address] PCP - General 02/02/14 documented as of this encounter
--- OUTSIDE RECORDS SUMMARY | 2024-02-17 15:57 | XMS_ITS | Encounter Summary ---
Author Organization [facility] Address [facility] [place] [address] Care Team Providers Care Vice President Media Relations Name Role Phone Ag Trent MD Primary Care Provider [phone] Reason for Visit * Reason Comments Follow-up Encounter Details Date Type Department Care Team (Late st Contact Info) Description 05/15/2016 2:30 PM EST Office [place] [phone] Shane Copeland MD [facility] [place] [address] Malignant neoplasm of left female breast, unspecified [...] Pressure - - Pulse - - Temperature - - Respiratory Rate - - Oxygen Saturation - - Inhaled Oxygen Concentration - - Weight 81.4 kg (179 lb 7.3 oz) 05/15/2016 2:25 P M EST Height - - Body Mass Index 31.4 03/12/2016 3:12 PM EST documented in this encounter Progress Notes * Shane Copeland MD - 05/15/2016 2:30 PM EST Narda Rivera is a 65 year-old woman who returns after left breast [...] present No Date of last follow up 05/15/16 SHANE COPELAND MD 05/15/2016 documented in this encounter Plan of Treatment Not on file documented as of this encounter Results * Mammo Screen CAD and Gualberto Bilat (Generic) (05/28/2017 10:46 AM EST) Anatomical [...] No mammographic evidence of malignancy. RECOMMENDATION: [employer] and The Society of [...] [facility]. BIRADS CATEGORY 1: NEGATIVE Shane Copeland MD IMG MAMMO ORDERABLES documented in this encounter Visit Diagnoses Diagnosis Malignant neoplasm of left female breast, unspecified site of breast Malignant neoplasm of left female breast Malignant neoplasm of breast (female), unspecified site documented in this encounter Care Teams Vice President Media Relations Relationship Specialty Start Date End Date Ag Trent MD [address] [place] [id number] PCP - General 02/02/14 documented as of this encounter
--- OUTSIDE RECORDS SUMMARY | 2024-02-17 15:57 | XMS_ITS | Encounter Summary ---
Author Organization [facility] Address [facility] [place] [address] Care Team Providers Care Pea Viner Mechanic Name Role Phone Ag Trent MD Primary Care Provider [phone] Encounter Details Date Type Department Care Team (Late st Contact Info) Description 11/16/2014 Notes Only [place] [phone] Kirill Saavedra MD [facility] DR HEMATOLOGY AND ONCOLOGY [place] [id number] Social History Tobacco Use Types Packs/Day Years [...] Notes * Yulissa Mcguire RN - 11/17/2014 11:35 AM EDT Research Nurse: Week 32 & End of Study visit (EOS) Control ARM 11/16/2014 99329: Effects of an Exercise Intervention on Physical Activity during Chemotherapy for Patients with Early Stage Breast Cancer Narda arrived 9.15 AM for EOS visit. She first had fasting insulin, CRP, CBC and CMP labs drawn in 3K. Narda then had EOS measurements and the resting metabolic rate (RMR) test done in the physical therapy department. RMR was based on her weight obtained on 11/08/14 = 78.7 kg (173.5 lbs); height 161cm (63.4 inches). BMI = 30.73. She tolerated lying down wearing the mask and being connected to the VO200 machine for 30 min well. Narda also completed the EOS questionnaires: IPAQ, FACIT-F and DIET. EOS measurements: Waist 93.5 cm Hip 106 cm WHR 0.88 RHR 60 Narda was thereafter seen by Mai Pizarro PT who completed the EOS body composition analysis (BCA). See separate note. BCA Values: E17.50 T36.52 I19.02L L48.3 kg I thanked Narda for participation in this 8 month long research study. She documented in this encounter Plan of Treatment Not on file documented as of this encounter Visit Diagnoses Not on filedocumented in this encounter Care Teams Pea Viner Mechanic Relationship Specialty Start Date End Date Ag Trent MD [address] [place] [id number] PCP - General 02/02/14 documented as of this encounter
--- OUTSIDE RECORDS SUMMARY | 2024-02-17 15:57 | XMS_ITS | Encounter Summary ---
Author Organization [facility] [place] [address] Care Team Providers Care Heel Sorter Name Role Phone Ag Trent MD Primary Care Provider [phone] Encounter Details Date Type Department Care Team (Late st Contact Info) Description 10/13/2015 11:00 AM EDT Office Visit Hematology/Oncology at [address] [phone] Meenakshi Sanchez, TENT ASSEMBLER [address] [facility] [place] [address] Malignant neoplasm of left female breast, unspecified [...] Sign Reading Time Taken Comments Blood Pressure 132/68 10/13/2015 11:17 AM EDT Pulse 82 10/13/2015 11:17 AM EDT Temperature 37.1 ??C (98.8 ??F) 10/13/2015 11:17 AM E DT Respiratory Rate 16 10/13/2015 11:17 AM EDT Oxygen Saturation 99% 10/13/2015 11:17 AM EDT Inhaled Oxygen Concentration - - Weight 79.4 kg (175 lb) 10/13/2015 11:17 AM EDT Height 161 cm (5' 3.39) 10/13/2015 11:17 AM EDT Body Mass Index 30.62 10/13/2015 11:17 AM EDT documented in this encounter Progress Notes * Meenakshi Sanchez, TENT ASSEMBLER - 10/13/2015 11:00 AM EDT Diagnosis: Left 3.5 cm IDC with lobular features, lymphovascular invasion present, SLN 2/2 positive, ER+/VT+, Her-2 unaplified. Subjective: HPI: Ms. Narda Rivera is 65 y.o. female Referred to us for consultation by Dr. Cohen on new diagnosis of breast cancer. She initially presented with a mass in her upper outer left breast with calcifications on a screening mammogram in December 2013.The main mass wasbiopsied showing infiltrating ductal and lobular carcinoma, ER positive, [id number]. MRI was then performed that showed the mass withmultiple small satellites around it. Mrs. Rivera underwent [...] resumed Arimidex with no significant side effects. She switched off to Femara in June of this year for myalgias/arthralgias. 6wks ago had a TKA- feels this progressed faster because of the Femara. PMH: Hypothyroidism on Synthroid- recently regulated the dose. Patient Active Problem List Diagnosis ??? Malignant neoplasm of left female breast (BREAST CANCER) Diagnosis: Left 3.5 cm IDC with lobular features, lymphovascular invasion present, SLN 2/2 positive, ER+/VT+, Her-2 unaplified, T2,at least N1a, Mx Treatment:s/p left partial mastectomy with sentinel lymph node biopsy the on 02/23/14 - 03/29/14 1-st cycle of dd-AC with neulasta support - 04/12/14 2-nd cycle of dd-AC with neulasta support - 04/25/14 3-rd cycle of dd-AC with neulasta support - 05/10/14 4-th cycle of dd-AC with neulasta support - 2/24/15 1-st cycle of weekly Taxol 80 mg/m2 [...] Negative for dysuria and difficulty urinating. Musculoskeletal: Just had L TKA done 6wks ago Skin: mild red rash on arms and [...] nodes normal Neurologic: Normal; nl patellar reflexes; sericulturist grossly intact Vitals There were no vitals taken for this visit. Weight Wt Readings from Last 3 Encounters: 05/16/15 81.6 kg (180 lb) 02/07/15 82.1 kg (181 lb) 12/16/14 81.6 kg (180 lb) Karnofsky score is 90 [...] count: Score = 3 Total Khalif Score: [place] Grade III: 8-9 points DCIS: Ductal Carcinoma [...] slide reconstruction) MICROCALCIFICATIONS: Present in nonneoplastic tissue ER/VT/HER2: ER/VT/Her2 Comment: Please see prior biopsy [id number]. HER2 FISH will be repeated on this [...] cancer cells with immunostaining) Stain Intensity: Strong VT immunoreactivity: Positive (11-90% cancer cells with immunostaining) Stain Intensity: Strong NEGATIVE FOR HER2/DEL AMPLIFICATION Labs: 10/13/15 CBC and CMP are within normal limits Imagin02/02/15, DEXA scan left hip T score [...] features, lymphovascular invasion present, SLN 2/2 positive, ER+/VT+, Her-2 unaplified, T2,at least N1a, Mx Treatment:s/p [...] 08/09/14 completed weekly Taxol XRT 08/30/14 - 10/18/1406/2014 switched from Arimidex to Femara 2. Osteopenia: borderline, T -1.0. Calcium makes her constipated. Recommend calcium rich food. Willrepeat DEXA scan in 2 years (01/2017). vit D level normal- 60 today (range 18-78) Plan: 1. Breast CA: now 1yr out from completing therapy. Continue femara 1 mg daily. She is not happy about taking it however I encouraged her to continue for now and talk with Dr. Saavedra about it at the next visit. She is at high risk for recurrence. I will put an order in for her mammogram as she has not received a call back for it as yet and is due next month. 2. Next visit with CBC, CMP in 4 months Meenakshi Sanchez, MSN, WIND TURBINE SERVICE TECHNICIAN, AOCN [facility]/[address] [place] [address] documented in this encounter Plan of Treatment Not on file documented as of this encounter Visit Diagnoses Diagnosis Malignant neoplasm of left female breast, unspecified site of breast documented in this encounter Care Teams Heel Sorter Relationship Specialty Start Date End Date Ag Trent MD [address] [place] [address] PCP - General 02/02/14 documented as of this encounter
--- OUTSIDE RECORDS SUMMARY | 2024-02-17 15:57 | XMS_ITS | Encounter Summary ---
Author Organization [facility] Address [facility] [place] [address] Care Team Providers Care Cigarette Examiner Name Role Phone Ag Trent MD Primary Care Provider [phone] Reason for Visit * Reason Comments On Treatment Visit Encounter Details Date Type Department Care Team (Late st Contact Info) Description 09/20/2014 11:15 AM EDT Office Visit Radiation Oncology at [address] [phone] Clau Alfonso MD [facility] [place] [address] Breast cancer, female, left Discharge Disposition: Home [...] Sign Reading Time Taken Comments Blood Pressure 121/57 09/20/2014 11:19 AM EDT Pulse 66 09/20/2014 11:19 AM EDT Temperature 36.9 ??C (98.4 ??F) 09/20/2014 11:19 AM E DT Respiratory Rate 24 09/20/2014 11:19 AM EDT Oxygen Saturation 97% 09/20/2014 11:19 AM EDT Inhaled Oxygen Concentration - - Weight 79.8 kg (176 lb) 09/20/2014 11:19 AM EDT Height - - Body Mass Index 30.8 08/09/2014 9:02 AM EDT documented in this encounter Progress Notes * Clau Alfonso MD - 09/20/2014 11:36 AM EDT DIAGNOSIS: Breast, L, IDC w/lobular features; high gr, ER+KY+, Hdy8cus-, s/p lumpectomy & SNB, pT2 pN1a, stage II, +extensive LVI. S/p adjuvant chemo. CURRENT TREATMENT DOSE: 28.8 Gy L supraclav, L axilla, L breast ANTICIPATED TOTAL DOSE: 50.4 Gy L supraclav, L axilla & L breast; 60.4 Gy lumpectomy bed L breast Current # of xrt received: 16 Anticipated total # of xrt txs: 28 L supraclav, L axilla & L breast; 33 lumpectomy bed L breast Evaluation of port verification films: Approved. For details, see electronic film record in [employer]. Changes in Medical Condition: Still w/sore throat & reports odynophagia. Gaviscon provides somerelief. Still w/some chest discomfort when lies down; level 3; does not require analgesic. Still w/gurgling in throat, unassoc'd w/any precipitating factor. Taking Tums & prilosec. Saw PCP 09/15. Skin w/in irrad'd area ok; no itchiness/soreness. Pain?: No. Physical Exam: BP 121/57 Pulse 66 Temp(Src) 36.9 ??C (98.4 ??F) (Oral) Resp 24 Wt 79.833 kg(176 lb) SpO2 97% A&Ox3, in NAD. Mild erythema w/in irrad'd area, w/mild folliculitis in UIQ. Xrays: 09/02/14 CT ch to eval for PE: No PE. Questionable small area of RLL infiltration, atelectasis&/or scarring. Response to xrt: As expected. Irradiation Related Symptoms: Esophagitis. Skin rxn. Treatment for Symptom Control: Discussed possible rx for BML & rx was ordered, to be phone in, but then she decided to continue with the gaviscon & declined the BML. Madhu's cream. Pain Management: Gaviscon. Recommendation on Continuing Course of xrt: Cont. documented in this encounter Plan of Treatment Not on file documented as of this encounter Visit Diagnoses Diagnosis Breast cancer, female, left documented in this encounter Care Teams Cigarette Examiner Relationship Specialty Start Date End Date Ag Trent MD [address] [place] [address] PCP - General 02/02/14 documented as of this encounter
--- OUTSIDE RECORDS SUMMARY | 2024-02-17 15:57 | XMS_ITS | Encounter Summary ---
Author Organization [facility] [place] [address] Care Team Providers Care Motorboat Operator Name Role Phone Ag Trent MD Primary Care Provider [phone] Encounter Details Date Type Department Care Team (Late st Contact Info) Description 12/16/2014 1:00 PM EDT Follow-Up Hematology/Oncology at [address] [phone] Meenakshi Sanchez, MACHINE II ENGRAVER [address] [facility] [place] [address] Breast cancer, left breast; Malignant neoplasm of left female breast (BREAST CANCER) Discharge Disposition: Home Social History Tobacco Use [...] Sign Reading Time Taken Comments Blood Pressure 128/65 12/16/2014 1:11 PM EDT Pulse 61 12/16/2014 1:11 PM EDT Temperature 36.9 ??C (98.4 ??F) 12/16/2014 1:11 PM ED T Respiratory Rate 16 12/16/2014 1:11 PM EDT Oxygen Saturation 98% 12/16/2014 1:11 PM EDT Inhaled Oxygen Concentration - - Weight 81.6 kg (180 lb) 12/16/2014 1:11 PM EDT Height 161 cm (5' 3.39) 12/16/2014 1:11 PM EDT Body Mass Index 31.5 12/16/2014 1:11 PM EDT documented in this encounter Progress Notes * Meenakshi Sanchez, MACHINE II ENGRAVER - 12/16/2014 1:20 PM EDT Subjective: Patient ID: Narda Rivera is a 64 y.o. female. HPI Comments: Narda is here today to discuss issues around cancer survivorship, and her oral hormone therapy. She states she has been quite anxious and jittery over the past couple of months since completing RT. On Friday she saw her PCP who checked a TSH which was quite high and her levothyroxinedose was raised. She states now that those symptoms have improved greatly. She is also concerned abo ut the slowness with which her hair is growing back, and S/E of the Arimidex and Femara. She statesthat the Erbitux made her feel even more jittery when she started that about a month ago. Dr. Barton stop this medication and switched her to Femara. She has filled the Femara prescription but has not yet started taking it. Her concerns range from physical effects of the hormone therapy, physical an d emotional effects of having no estrogen, and issues around recurrence and and dying. Patient Active Problem List Diagnosis ??? Mucositis ??? Breast cancer, left breast ??? Other specified prophylactic or treatment measure ??? Malignant neoplasm of left female breast (BREAST CANCER) BP 128/65 mmHg Pulse 61 Temp(Src) 36.9 ??C (98.4 ??F) (Oral) Resp 16 Ht 161 cm (5' 3.39) Wt 81.647 kg (180 lb) BMI 31.50 kg/m2 SpO2 98% Current Outpatient Prescriptions on File Prior to Visit Medication Sig Dispense Refill ??? diaZEPam (VALIUM) 5 mg Tablet Take 5 mg by mouth as needed. ??? SENNOSIDES (SENNA ORAL) Take by mouth daily as needed. ??? lactobacillus (BACID) Capsule Take 1 tablet by mouth daily. ??? multivitamin Capsule Take 1 capsule by mouth daily. ??? omeprazole (PRILOSEC) 20 mg Capsule, Delayed Release(E.C.) Take 1 capsule by mouth daily. 90 capsule 1 ??? bisacodyl (DULCOLAX) 5 mg Tablet, Delayed Release (E.C.) Take 5 mg by mouth daily as needed forConstipation. ??? polyethylene glycol (MIRALAX) 17 gram Powder in Packet Take 17 g by mouth 3 times daily as needed. ??? ERGOCALCIFEROL, VITAMIN D2, (VITAMIN D ORAL) Take 1 tablet by mouth. ??? levothyroxine (SYNTHROID) 175 mcg Tablet Take 175 mcg by mouth daily. ??? hydrochlorothiazide (HYDRODIURIL) 25 mg Tablet Take 25 mg by mouth daily. ??? pravastatin (PRAVACHOL) 10 mg Tablet Take 10 mg by mouth daily. ??? aspirin 81 mg Tablet, Delayed Release (E.C.) Take 81 mg by mouth daily. ??? letrozole (FEMARA) 2.5 mg Tablet Take 1 tablet by mouth daily. 30 tablet 0 ??? acetaminophen (TYLENOL) 325 mg Tablet Take 650 mg by mouth every 4 hours as needed for Pain. ??? [DISCONTINUED] EMOLLIENT BASE (CREAM BASE TOP) Apply topically. Jeans Cream. Apply to area of radiation twice a day but no less than 2 hours before a treatment. ??? LORazepam (ATIVAN) 0.5 mg Tablet Take 1 tablet by mouth every 6 hours as needed for Anxiety (nausea). 30 tablet 0 No current facility-administered medications on file prior to visit. Review of Systems Constitutional: Positive for fatigue and unexpected weight change (up 2 kg). Negative for fever, diaphoresis, activity change and appetite change. HENT: Negative. Gastrointestinal: Negative. Musculoskeletal: Negative. Skin: Alopecia Neurological: Negative. Psychiatric/Behavioral: Positive for sleep disturbance, dysphoric mood and agitation (better on Synthroid dose escalation). The patient is nervous/anxious and is hyperactive (better on Synthroid doseescalation). All other systems reviewed and are negative. Objective: Physical Exam Constitutional: She is oriented to person, place, and time. She appears well- developed and well-nourished. HENT: Head: Normocephalic. Eyes: Conjunctivae are normal. Pupils are equal, round, and reactive to light. Neck: Normal range of motion. Pulmonary/Chest: Effort normal. Abdominal: There is no guarding. Musculoskeletal: Normal range of motion. Neurological: She is alert and oriented to person, place, and time. Skin: Skin is warm and dry. Psychiatric: Judgment and thought content normal. Assessment and Plan: 45 minutes of this 45 minute [id number] visit from 1 to 1:45 were spent in discussion of medication management and additional therapies as described below: Breast cancer: We had a long discussion today regarding survivorship issues. I reviewed with her her expected prognosis, based on Dr. Saavedra's note from the last time he saw her; the side effects of both Femara and Arimidex; physical changes that might happen after completion of treatment, emotional changes that happen cancer survivors frequently undergo, and discussion around recurrence and and dying process noting that this is unlikely to happen to her and that the odds are in her favor. Hypothyroidism: We explained to her the changes that were made with her medication based on her TSHvalues and have given written information to back up the discussion. I have encouraged her to call me should she need further follow-up. She states that she is feeling better now and will call if there is any further questions or problems. Meenakshi Sanchez, MSN, UTILITY SALES AND SERVICE MANAGER, AOCN Hematology/Oncology Nurse Practitioner [place], [place] [phone] documented in this encounter Plan of Treatment Not on file documented as of this encounter Procedures Procedure Name Priority Date/Time Associated Diagnosis Comments DIAGNOSTIC RADIOLOGY SCAN 02/03/2015 12:00 AM EST documented in this encounter Results * SCAN DOC: DIAGNOSTIC RADIOLOGY (02/03/2015 12:00 AM EST) Anatomical Region Laterality Modality Other Scanning Provider MEDIA MGR SCAN EXT O RDR/RSLT documented in this encounter Visit Diagnoses Diagnosis Malignant neoplasm of left female breast (BREAST CANCER) Malignant neoplasm of breast (female), unspecified site documented in this encounter Care Teams Motorboat Operator Relationship Specialty Start Date End Date Ag Trent MD [address] [place] [address] PCP - General 02/02/14 documented as of this encounter
--- OUTSIDE RECORDS SUMMARY | 2024-02-17 15:57 | XMS_ITS | Encounter Summary ---
Author Organization Formerly [facility] Address [facility] [place] [address] [place] [address] Care Team Providers Care Technician Trainee Name Role Phone Ag Trent MD Primary Care Provider Reason for Visit * Reason Comments Follow-up Encounter Details Date Type Department Care Team (Late st Contact Info) Description 11/08/2014 1:30 PM EDT Follow-Up Hematology/Oncology at [address] [address] Kirill Saavedra MD [facility] [address] HEMATOLOGY [place] [address] Malignant neoplasm of left female breast (BREAST CANCER); Other specified prophylactic or treatment measure Discharge Disposition: Home Social History Tobacco Use [...] Sign Reading Time Taken Comments Blood Pressure 124/68 11/08/2014 1:48 PM EDT Pulse 73 11/08/2014 1:48 PM EDT Temperature 37 ??C (98.6 ??F) 11/08/2014 1:48 PM EDT Respiratory Rate 16 11/08/2014 1:48 PM EDT Oxygen Saturation 98% 11/08/2014 1:48 PM EDT Inhaled Oxygen Concentration - - Weight 78.7 kg (173 lb 8 oz) 11/08/2014 1:48 PM EDT Height 161 cm (5' 3.39) 11/08/2014 1:48 PM EDT Body Mass Index 30.36 11/08/2014 1:48 PM EDT documented in this encounter Progress Notes * Kirill Saavedra MD - 11/08/2014 5:42 PM EDT Diagnosis: 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 Subjective:I feel fine HPI: Ms. Narda Rivera is 64 y.o. female Referred to us for consultation by Dr. Cohen on new diagnosis of breast cancer. She initially presenteda mass in her upper outer left breast with calcificationson a screening mammogram in December 2013.The main mass wasbiopsied showing infiltrating ductal and lobular carcinoma, ER positive, [id number]. MRI was then performed that showed the mass with multiple small satellites around it. Mrs. Rivera underwent left partial mastectomy and sentinel lymph nodebiopsy on February 23, 2014. Postoperative course was uneventful. Interval history: Ms. Rivera is in clinic today for followup appointment. she completed radiation onJuly . Ms. Rivera tolerated treatment well. Today she is in clinic to discuss hormonal therapy. PMH: no interval changes Patient Active Problem List Diagnosis ??? Mucositis ??? Breast cancer, left breast ??? Other specified prophylactic or treatment measure ??? Malignant neoplasm of left female breast (BREAST CANCER) Social History: no interval changes Family History: no interval changes Allergies: oxycodone Medications: Reviewed Review of Systems: Constitutional: Negative for fever, chills, activity change, fatigue and unexpected weight change. HEENT: positive for sore throat and mouth sores. Eyes: Negative. Respiratory: Negative for cough, shortness of breath and wheezing. Cardiovascular: Negative for chest pain, palpitations and leg swelling. Gastrointestinal: positive for nausea and constipation Genitourinary: Negative for dysuria and difficulty urinating. Musculoskeletal: Negative. Skin: red rash on arms and upper chest Neurological: mild numbness/tingling in fingertips. Hematological: Negative for adenopathy. 10 systems were [...] in right breast. Examination was done in presents FILOMENA Roy Heart: Regular rate and rhythm, S1, S2 [...] or inguinal areas. Neurologic: Normal Vitals BP 124/68 mmHg Pulse 73 Temp(Src) 37 ??C (98.6 ??F) (Oral) Resp 16 Ht 161 cm (5' 3.39) Wt 78.699 kg (173 lb 8 oz) BMI 30.36 kg/m2 SpO2 98% Karnofsky score is 90 Pathology: ---Pathologic Diagnosis--- [...] count: Score = 3 Total Khalif Score: Orlando Grade III: 8-9 points DCIS: Ductal Carcinoma [...] slide reconstruction) MICROCALCIFICATIONS: Present in nonneoplastic tissue ER/ID/HER2: ER/ID/Her2 Comment: Please see prior biopsy [id number]. HER2 FISH will be repeated on this [...] cancer cells with immunostaining) Stain Intensity: Strong ID immunoreactivity: Positive (11-90% cancer cells with immunostaining) Stain Intensity: Strong NEGATIVE FOR HER2/DEL AMPLIFICATION Labs: WBC 4.36, hemoglobin 14.8, platelet count 246, 0.9, BUN 15, creatinine 0.6, alkaline phosphatase 106, AST 18, ALT 31. Potassium 3.4, magnesium 1.9. Imagin03/15/14, CT scan of chest, abdomen and pelvis: No evidence of abdominal pelvic metastatic disease.No evidence of thoracic metastatic disease. 8 cm fluid collection in the left breast. This likely reflects postsurgical change. 03/15/14 echocardiogram: normal biventricular size and systolic function; estimated LVEF 65%. 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 We discussed risk of Arimidex 1 mg by mouth daily which include but not limited to hot flashes, fatigue, joint and muscle ache, decrease in bone mass, remote increase in cardiovascular events. Ms. Rivera is interested to proceed with Arimidex. Prescription for Arimidex 1 mg by mouth daily was given. We will schedule her for a baseline DEXA scan. I plan to see her back in about3 months with blood work. Plan: 1. Arimidex 1 mg daily. 2. DEXA scan 3. Next visit with CBC, CMP in 3 months Mrs. Rivera is by herself today. [...] Malignant neoplasm of breast (female), unspecified site Other specified prophylactic or treatment measure documented in this encounter Care Teams Technician Trainee Relationship Specialty Start Date End Date Ag Trent MD [address] [place] [address] PCP - General 02/02/14 documented as of this encounter
--- OUTSIDE RECORDS SUMMARY | 2024-02-17 15:57 | XMS_ITS | Encounter Summary ---
Author Organization Counts Include [facility] Address [facility] [place] [address] Care Team Providers Care Map And Chart Mounter Name Role Phone Ag Trent MD Primary Care Provider [phone] Reason for Visit * Reason Comments Radiation Treatment Encounter Details Date Type Department Care Team (Late st Contact Info) Description 10/11/2014 11:30 AM EDT Office Visit Radiation Oncology at [address] [phone] Clau Alfonso MD [facility] [place] [address] Breast cancer, female, left Discharge Disposition: Home [...] Sign Reading Time Taken Comments Blood Pressure 116/63 10/11/2014 12:00 PM EDT Pulse 72 10/11/2014 12:00 PM EDT Temperature 36.9 ??C (98.4 ??F) 10/11/2014 12:00 PM E DT Respiratory Rate 16 10/11/2014 12:00 PM EDT Oxygen Saturation 97% 10/11/2014 12:00 PM EDT Inhaled Oxygen Concentration - - Weight 78.3 kg (172 lb 9.6 oz) 10/11/2014 12:00 PM EDT Height - - Body Mass Index 30.2 08/09/2014 9:02 AM EDT documented in this encounter Progress Notes * Clau Alfonso MD - 10/11/2014 12:11 PM EDT DIAGNOSIS: Breast, L, IDC w/lobular features; high gr, ER+NH+, Ndh2inn-, s/p lumpectomy & SNB, pT2 pN1a, stage II, +extensive LVI. S/p adjuvant chemo. CURRENT TREATMENT DOSE: 50.4 Gy L supraclav, L axilla, L breast ANTICIPATED TOTAL DOSE: 50.4 Gy L supraclav, L axilla & L breast; 60.4 Gy lumpectomy bed L breast Current # of xrt received: 28 L supraclav, L axilla & L breast Anticipated total # of xrt txs: 28 L supraclav, L axilla & L breast; 33 lumpectomy bed L breast Evaluation of port verification films: Approved. For details, see electronic film record in [employer] System. 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 Skin w/in irrad'd area itchy; itchiness relieved by madhu's cream. Picked a tick off of site where her port used to be in R infraclav area & then developed an itchy swelling on R arm. Applies cool packs to L breast & to R arm. Pain?: No. Physical Exam: BP 116/63 Pulse 72 Temp(Src) 36.9 ??C (98.4 ??F) (Oral) Resp 16 Wt 78.291 kg(172 lb 9.6 oz) SpO2 97% A&Ox3, in NAD. Mild erythema w/in irrad'd area, w/moderate folliculitis in UIQ; skin intact. 7 cm diameter minimally elevated, slightly erythematous circular area on R arm. Xrays: 09/02/14 CT ch to eval for PE: No PE. Questionable small area of RLL infiltration, atelectasis&/or scarring. Response to xrt: As expected. Irradiation Related Symptoms: Esophagitis. Skin rxn. Treatment for Symptom Control: Gaviscon. Prilosec. Tums. Madhu's cream. Pain Management: Gaviscon. Recommendation on Continuing Course of xrt: Cont. Advised alternating warm compresses w/cool pack on erythematous area on R arm. documented in this encounter Plan of Treatment Not on file documented as of this encounter Visit Diagnoses Diagnosis Breast cancer, female, left documented in this encounter Care Teams Map And Chart Mounter Relationship Specialty Start Date End Date Ag Trent MD [address] [place] [id number] PCP - General 02/02/14 documented as of this encounter
--- OUTSIDE RECORDS SUMMARY | 2024-02-17 15:57 | XMS_ITS | Encounter Summary ---
Author Organization [facility] Address [facility] [place] [address] Care Team Providers Care Engineering Intern Name Role Phone Ag Trent MD Primary Care Provider [phone] Encounter Details Date Type Department Care Team (Late st Contact Info) Description 11/16/2014 Orders Only Hematology [place] [id number] Kirill Saavedra MD [facility] DR HEMATOLOGY [place] [address] Examination of participant in clinical trial Social History Tobacco Use Types Packs/Day Years [...] documented as of this encounter Results * Insulin, total (11/16/2014 9:43 AM EDT) Insulin 13.7 2.6 - 24.9 mcunit/mL [facility] Blood specimen (specimen) 11/16/2014 9:43 AM EDT 11/16/2014 9:58 AM EDT Narrative Resulting Agency Comment Spec In Lab Kirill Saavedra MD CHEMISTRY ORDERABLES [facility] Radiant [employer] * High Sensitivity CRP (11/16/2014 9:43 AM EDT) C-Reactive Protein High Sensitivity 3.4 mg/L [facility] Comment: Interpretations: 1) For accurate cardiac risk assessment, the average of 2 values >2 weeks apart should be obtained (ref 1&2). A value >10 mg/L indicates an inflammatory condition, concentrations >10 mg/L should not be used for cardiac risk assessment. ?<1.0 mg/L: low risk ?1.0 - 3.0 mg/L: moderate risk ?>3.0 mg/L: high risk groups for future cardiovascular events 2) The general reference range of apparently healthy individuals using this test is <5.0 mg/L (derived from the test package insert) References: 1. Mildred HAJI et. al. ??AHA/CDC Scientific Statement: Markers of Inflammation and Cardiovascular Disease. ??Circulation 2003; 107:499-511 2. Phani PM. ??Clinical applications of C-reactive protein for cardiovascular disease detection and prevention. ??Circulation 2003; 107:363-369 Blood specimen (specimen) 11/16/2014 9:43 AM EDT 11/16/2014 9:58 AM EDT Narrative Resulting Agency Comment Spec In Lab Kirill Saavedra MD CHEMISTRY ORDERABLES [facility] documented in this encounter Visit Diagnoses Diagnosis Examination of participant in clinical trial documented in this encounter Care Teams Engineering Intern Relationship Specialty Start Date End Date Ag Trent MD [address] [place] [address] PCP - General 02/02/14 documented as of this encounter
--- OUTSIDE RECORDS SUMMARY | 2024-02-17 15:57 | XMS_ITS | Encounter Summary ---
Author Organization [facility] Address [facility] [place] [address] Care Team Providers Care Physical Therapy Assistant Instructor Name Role Phone Ag Trent MD Primary Care Provider [phone] Encounter Details Date Type Department Care Team (Late st Contact Info) Description 11/16/2014 10:30 AM EDT Office [place] [address] Mai Pizarro, PT [facility] PHYSICAL MEDICINE & [place] [address] Kirill Saavedra MD [facility] [place] [address] H/O lumpectomy Discharge Disposition: Home Social History Tobacco Use [...] as of this encounter Progress Notes * Mai Pizarro, PT - 11/16/2014 11:42 AM EDT PHYSICAL THERAPY follow up Date of Exam/First treatment: 03/22/14 Date of Onset 02/22/14 Referring Provider: Kirill Saavedra Diagnosis: breast swelling (previous) Total time: 10 minutes Total timed code treatment minutes: No charge. End of study visit. Pt seen very briefly for follow up body composition testing. No other physical complaints. Talked briefly about long-term effects of radiation and when to request a referral to PT. She states that she would not have exercised at all if she had not been on the study (control arm).She has lost weight--see notes from Yulissa Portillo for her wt today. Bioimpedence testing: E: 17.50 T 36.52 I 19.02 L48.3 Mai Pizarro PT documented in this encounter Plan of Treatment Not on file documented as of this encounter Visit Diagnoses Diagnosis H/O lumpectomy Other postprocedural status documented in this encounter Care Teams Physical Therapy Assistant Instructor Relationship Specialty Start Date End Date Ag Trent MD [address] [place] [address] PCP - General 02/02/14 documented as of this encounter
--- OUTSIDE RECORDS SUMMARY | 2024-02-17 15:57 | XMS_ITS | Encounter Summary ---
Author Organization [facility] Address [facility] [place] [address] Care Team Providers Care Machinist 2Nd Shift Name Role Phone Ag Trent MD Primary Care Provider Reason for Visit * Reason Comments Radiation Follow-up prostate cancer Encounter Details Date Type Department Care Team (Late st Contact Info) Description 11/30/2015 11:15 AM EDT Office Visit Radiation Oncology at [address] [phone] Haley Robles, [address] RADIATION ONCOLOGY [place], [place] [id number] Malignant neoplasm of left female breast, unspecified [...] Sign Reading Time Taken Comments Blood Pressure 120/66 11/30/2015 11:15 AM EDT Pulse 67 11/30/2015 11:15 AM EDT Temperature 37 ??C (98.6 ??F) 11/30/2015 11:15 AM EDT Respiratory Rate 18 11/30/2015 11:15 AM EDT Oxygen Saturation 98% 11/30/2015 11:15 AM EDT Inhaled Oxygen Concentration - - Weight 79.2 kg (174 lb 9.6 oz) 11/30/2015 11:15 AM EDT Height 161 cm (5' 3.39) 11/30/2015 11:15 AM EDT copy Body Mass Index 30.55 11/30/2015 11:15 AM EDT documented in this encounter Progress Notes * Haley Robles, CHIEF COMPLIANCE OFFICER - 11/30/2015 9:00 AM EDT Images from the original note were not included. Patient ID: Narda Rivera is a 65 y.o. female.breast ca, L, IDC w/lobular features, high gr, ER+WY+, Dyo3hal-, s/p lumpectomy & SNB, pT2 pN1a, stage II, +extensive LVI. S/p adjuvant chemo and radiation therapy. She was treated with 60.4 Gy which was completed on 10/18/2014. She is on letrozole for hormone therapy. She is in clinic for scheduled followup and to review her breast cancer survivorcare plan HPI 63 y/o f who underwent a screening mmg in 01/11, w/[facility] interp: L breast lesion 1, SUSPICIOUS, 14 mm mass @ 0100. L breast lesion 2, SUSPICIOUS, 3.8 mm mass @ 0100, 12 mm from lesion 1. R breast neg. ?? 02/02/14 US guided core needle bxs L breast mass @ 0100. ?? Path: Invasive mammary ca w/ductal & lobular features. LVI present. ER+WY+. [id number] IHC neg. ?? 02/08/14 B breast MRI: [...] = 0.6 - 0.8 cm; pT2 pN1a. [id number] FISH neg. Comment: Multiple satellite foci of [...] met dz. ?? Chemotherapy detail: [facility] ([facility]) 03/29/2014 03/30/2014 Day, Cycle Day 1, Cycle [...] (TAXOL) IV pegfilgrastim (NEULASTA) SubQ 6 [facility] 05/10/2014 05/11/2014 Day, Cycle Day 1, Cycle 4 Day 2, Cycle 4 cyclophosphamide (CYTOXAN) IV 600 mg/m2/dose = 1,182 mg DOXOrubicin (ADRIAMYCIN) IV 60 mg/m2/dose = 118.2 mg PACLitaxel (TAXOL) IV pegfilgrastim (NEULASTA) SubQ 6 mg [facility] 05/24/2014 05/31/2014 Day, Cycle Day 1, Cycle 1 Day 8, Cycle 1 cyclophosphamide (CYTOXAN) IV DOXOrubicin (ADRIAMYCIN) IV PACLitaxel (TAXOL) IV 80 mg/m2/dose = 154 mg 80 mg/m2/dose = 154 mg pegfilgrastim (NEULASTA) SubQ [facility] ([facility]) 06/07/2014 06/14/2014 Day, Cycle Day 15, Cycle 1 Day 1, Cycle 2 cyclophosphamide (CYTOXAN) IV DOXOrubicin (ADRIAMYCIN) IV PACLitaxel (TAXOL) IV 80 mg/m2/dose = 154 mg 80 mg/m2/dose = 154 mg pegfilgrastim (NEULASTA) SubQ [facility] ([facility]) 06/21/2014 06/28/2014 Day, Cycle Day 8, Cycle 2 Day 15, Cycle 2 cyclophosphamide (CYTOXAN) IV DOXOrubicin (ADRIAMYCIN) IV PACLitaxel (TAXOL) IV 80 mg/m2/dose = 154 mg 80 mg/m2/dose = 154 mg pegfilgrastim (NEULASTA) Sub [facility] ([facility]) 07/05/2014 07/12/2014 Day, Cycle Day 1, Cycle 3 Day 8, Cycle 3 cyclophosphamide (CYTOXAN) IV DOXOrubicin (ADRIAMYCIN) IV PACLitaxel (TAXOL) IV 80 mg/m2/dose = 154 mg 80 mg/m2/dose = 154 mg pegfilgrastim (NEULASTA) [facility] ([facility]) 07/19/2014 07/26/2014 Day, Cycle Day 15, Cycle 3 Day 1, Cycle 4 cyclophosphamide (CYTOXAN) IV DOXOrubicin (ADRIAMYCIN) IV PACLitaxel (TAXOL) IV 80 mg/m2/dose = 154 mg 80 mg/m2/dose = 154 mg pegfilgrastim (NEULASTA) [facility] ([facility]) 08/02/2014 08/09/2014 Day, Cycle Day 8, Cycle [...] breast 06/2014 switched from Arimidex to Femara ?? Chemotherapy and Supportive Care Treatment History BREAST CANCER NOTES 09/07/2015 Method of Cancer Detection abnormal mammogram of the left breast 12/2013 Menopausal Status at Diagnosis post-menopausal Date of Diagnostic Biopsy 02/02/2014 Local Surgery Lumpectomy done by Dr Cohen at [facility] Axillary Management [place] nodes alone--2+ of 2 sentinel nodes removed. [...] High grade Margin negative ER--estrogen receptor positive WY--progesterone receptor positive HER-2/FISH negative Adjuvant Chemotherapy Start [...] T score of -1.0 Surveillance mammogram 05/04/2015--benign 2. Osteopenia: borderline, T -1.0. Calcium makes her constipated. Recommend calcium rich food. Willrepeat DEXA scan in 2 years (01/2017). vit D level normal- 60 today (range 18-78) Patient Active Problem List Diagnosis Code ??? Malignant neoplasm of left female breast (BREAST CANCER) C50.912 ??? Hypothyroidism E03.9 Past Surgical History Procedure Laterality Date ??? Pro mastectomy, partial Left 02/22/2014 MASTECTOMY PARTIAL performed by Ibrahima Cohen MD at [facility] MAIN OR ??? Pro bx/remv, lymph node, deep axill Left 02/22/2014 BIOPSY OR EXCISION OF LYMPH NODE(S), OPEN, DEEP AXILLARY NODE(S) performed by Ibrahima Cohen MD at [facility] MAIN OR ??? Pro identify sentinel node Left 02/22/2014 SENTINEL NODE INJECTION performed by Ibrahima Cohen MD at [facility] MAIN OR ??? Breast lumpectomy ??? Breast biopsy Left 01/2014 Allergies Allergen Reactions ??? Coumadin [Warfarin] Severe bleeding ??? Oxycodone Unable to tolerate opiates Current Outpatient Prescriptions on File Prior to Visit Medication Sig Dispense Refill ??? letrozole (FEMARA) 2.5 mg Tablet Take 1 tablet by mouth daily. 90 tablet 3 ??? UNABLE TO FIND Take 1 tablet by mouth daily. Milk thistle ??? LEVOTHYROXINE SODIUM (SYNTHROID ORAL) Take 250 mcg by mouth daily. ??? diaZEPam (VALIUM) 5 mg Tablet Take 5 mg by mouth as needed. ??? SENNOSIDES (SENNA ORAL) Take by mouth daily as needed. ??? lactobacillus (BACID) Capsule Take 1 tablet by mouth daily. ??? multivitamin Capsule Take 1 capsule by mouth daily. ??? omeprazole (PRILOSEC) 20 mg Capsule, Delayed Release(E.C.) Take 1 capsule by mouth daily. 90 capsule 1 ??? LORazepam (ATIVAN) 0.5 mg Tablet Take 1 tablet by mouth every 6 hours as needed for Anxiety (nausea). 30 tablet 0 ??? polyethylene glycol (MIRALAX) 17 gram Powder in Packet Take 17 g by mouth 3 times daily as needed. ??? ERGOCALCIFEROL, VITAMIN D2, (VITAMIN D ORAL) Take 1 tablet by mouth. ??? hydrochlorothiazide (HYDRODIURIL) 25 mg Tablet Take 25 mg by mouth daily. ??? pravastatin (PRAVACHOL) 10 mg Tablet Take 10 mg by mouth daily. ??? aspirin 81 mg Tablet, Delayed Release (E.C.) Take 81 mg by mouth daily. No current facility-administered medications on file prior to visit. Social History Social History ??? Marital status: [...] She has utilized the SHIP services at [facility] and referred her back to there to speak with her contact. ??Advance Directives: pt has completed her advance directive. Per her requested obtained a copy from [facility]. Pt reviewed the document and indicated she wants to make changes. She was given a new [place] advance directive booklet/form to review and complete. Utilization of Community Resources: [facility] services. Pt receives her primary care at the [facility]. Pt agreeable to participate in the [place] [facility] Project. Discussed project and provided her with the brochure. SEAN Galeano RN, [facility] and informed her pt willing to participate. Adjustment to Illness/Mental Health Issues: Coping well at this time. ?? Identified Needs: With insurance related questions and referred to [facility] SHIP staff who she has utilized in the past. ? Interim History: Ms Rivera indicates that she is doing well at this time. She had a knee replacement three months ago--at [facility] which she indicates has been very helpful in her overall functional status . She is swimming at the [place] [facility] which has also been helpful. She reports no issues with her breast. She has occ mild tenderness. She has no masses, no nipple discharge, no ROM restriction with her left shoulder, no lymphedema. She reports no persistent cough and no shortness of breath. Review of Systems Constitutional: Negative. Negative for activity change, appetite change, chills, diaphoresis, fatigue, fever and unexpected weight change. HENT: Negative. Respiratory: Negative for cough, chest tightness and shortness of breath. Cardiovascular: Negative. Negative for chest pain and leg swelling. Genitourinary: Positive for frequency. Negative for dysuria, hematuria, vaginal bleeding and vaginal discharge. Up 6-7 times a night Musculoskeletal: Negative for arthralgias and back pain. Recent knee replacement Skin: Negative. Neurological: Negative. Negative for dizziness and weakness. Hematological: Negative. Psychiatric/Behavioral: Negative. Vitals Office Visit from 11/30/2015 in [facility] Radiation Oncology Weight - Scale 79.2 kg (174 lb 9.6 oz) Height 161 cm (5' 3.39) [copy] BSA (Calculated - sq m) 1.88 sq meters BMI (Calculated) 30.6 Temp 37 ??C (98.6 ??F) Temp Source Oral Heart Rate 67 Heart Rate Source NIBP Resp 18 BP 120/66 BP Location Right arm Patient Position Sitting SpO2 98 % Objective: Physical Exam Constitutional: She is oriented to person, place, and time. She appears well- developed and well-nourished. No distress. HENT: Head: Normocephalic and atraumatic. Eyes: Conjunctivae and EOM are normal. Right eye exhibits no discharge. Left eye exhibits no discharge. No scleral icterus. Neck: Neck supple. Cardiovascular: Normal rate, regular rhythm and normal heart sounds. Exam reveals no gallop and no friction rub. No murmur heard. Pulmonary/Chest: Effort normal and breath sounds normal. No respiratory distress. She has no wheezes. She has no rales. She exhibits no tenderness. Abdominal: Soft. Bowel sounds are normal. Musculoskeletal: She exhibits no edema or tenderness. [...] ADL Cosmetic Result: ___X__Excellent; Good;____ Fair; ____Poor Assessment and Plan: Narda Rivera is a torri 65 y.o. female.breast ca, L, IDC w/lobular features, high gr, ER+WY+, [id number]-, s/p lumpectomy & SNB, pT2 pN1a, stage II, +extensive LVI. S/p adjuvant chemo with ddAC and taxol followed by radiation therapy. She was treated with 60.4 Gy which was completed on 10/18/2014. She is on letrozole for hormone therapy. She had a benign mammogram 05/2015. There is JACINDA. She is to have a repeat mammogram in May 2016. She is having significant nocturia and she was encouraged to discuss this with her PCP and to possibly get a referral to urology. Follow-up for a total of 35 minutes, with 30 minutes of that time spent discussing her current clinical condition, reviewing her Breast Cancer Survivor Care Plan which includes review of her breast cancer history, treatment history, health behaviors to promote wellness, ongoing surveillance, late effects of treatments and symptoms to report as well as planning further management. documented in this encounter Plan of Treatment Not on file documented as of this encounter Visit Diagnoses Diagnosis Malignant neoplasm of left female breast, unspecified site of breast documented in this encounter Care Teams Machinist 2Nd Shift Relationship Specialty Start Date End Date Ag Trent MD [address] [place] [address] PCP - General 02/02/14 documented as of this encounter
--- OUTSIDE RECORDS SUMMARY | 2024-02-17 15:57 | XMS_ITS | Encounter Summary ---
Author Organization [facility] Address [facility] [place] [address] Care Team Providers Care Automotive Leasing Sales Representative Name Role Phone Ag Trent MD Primary Care Provider [phone] Reason for Visit * Reason Comments Radiation Treatment Encounter Details Date Type Department Care Team (Late st Contact Info) Description 09/13/2014 11:15 AM EDT Office Visit Radiation Oncology at [address] [phone] Clau Alfonso MD [facility] [place] [address] Breast cancer, female, left Discharge Disposition: Home [...] Taken Comments Blood Pressure - - Pulse 78 09/13/2014 11:00 AM EDT Temperature 36.9 ??C (98.4 ??F) 09/13/2014 11:00 AM E DT Respiratory Rate 18 09/13/2014 11:00 AM EDT Oxygen Saturation 97% 09/13/2014 11:00 AM EDT Inhaled Oxygen Concentration - - Weight - - Height - - Body Mass Index - - documented in this encounter Progress Notes * Clau Alfonso MD - 09/13/2014 11:47 AM EDT DIAGNOSIS: Breast, L, IDC w/lobular features; high gr, ER+VT+, [id number]-, s/p lumpectomy & SNB, pT2 pN1a, stage II, +extensive LVI. S/p adjuvant chemo. CURRENT TREATMENT DOSE: 19.8 Gy L supraclav, L axilla, L breast ANTICIPATED TOTAL DOSE: 50.4 Gy L supraclav, L axilla & L breast; 60.4 Gy lumpectomy bed L breast Current # of xrt received: 11 Anticipated total # of xrt txs: 28 L supraclav, L axilla & L breast; 33 lumpectomy bed L breast Evaluation of port verification films: Approved. For details, see electronic film record in [employer]. Changes in Medical Condition: Breathing better today than yesterday & odynophagia cleared; bothdecreased w/antibiotic rx'd 2 wks ago by PCP. Still w/some chest discomfort when lies down; level 3; does not require analgesic. Still w/gurgling in throat, unassoc'd w/any precipitating factor. Taking Tums & prilosec. Appt w/PCP 09/15. Skin w/in irrad'd area ok; no itchiness/soreness. Pain?: No. Physical Exam: Pulse 78 Temp(Src) 36.9 ??C (98.4 ??F) (Oral) Resp 18 SpO2 97% A&Ox3, in NAD. Mild erythema w/in irrad'd area, w/mild folliculitis in UIQ. Xrays: 09/02/14 CT ch to eval for PE: No PE. Questionable small area of RLL infiltration, atelectasis&/or scarring. Response to xrt: As expected. Irradiation Related Symptoms: Skin rxn. Treatment for Symptom Control: Madhu's cream. Pain Management: Not needed. Recommendation on Continuing Course of xrt: Cont. documented in this encounter Plan of Treatment Not on file documented as of this encounter Visit Diagnoses Diagnosis Breast cancer, female, left documented in this encounter Care Teams Automotive Leasing Sales Representative Relationship Specialty Start Date End Date Ag Trent MD [address] [place] [address] PCP - General 02/02/14 documented as of this encounter
--- OUTSIDE RECORDS SUMMARY | 2024-02-17 15:57 | XMS_ITS | Encounter Summary ---
Author Organization [facility] Address [facility] [place] [address] Care Team Providers Care Nailing Machine Operator Automatic Name Role Phone Ag Trent MD Primary Care Provider [phone] Encounter Details Date Type Department Care Team (Latest Contact Info) Description 11/16/2014 9:20 AM EDT - 11/16/2014 11:59 PM EDT Hospital Encounter Hematology [place] [phone] CLINIC, [address] [facility] MD [facility] [address] [place] [address] Malignant neoplasm of breast (female), unspecified site Discharge Disposition: Home Social History Tobacco Use [...] mouth daily. 11/17/2014 exemestane (AROMASIN) 25 mg TabletIndications:Brittney st cancer, female, left Take [...] treatment. 12/16/2014 LORazepam (ATIVAN) 0.5 mg TabletIndications:Hetal gnant neoplasm of left female breast Take 1 [...] Procedure Name Priority Date/Time Associated Diagnosis Comments HEMOGRAM Routine 11/16/2014 9:43 AM EDT Malignant neoplasm of breast (female), unspecified site DIFFERENTIAL, AUTOMATED Routine 11/16/2014 9:43 AM EDT Malignant neoplasm of breast (female), unspecified site CBC (WITH DIFF) Routine 11/16/2014 9:43 AM EDT Malignant neoplasm of breast (female), unspecified site COMPREHENSIVE METABOLIC PANEL Routine 11/16/2014 9:43 AM EDT Malignant neoplasm of breast (female), unspecified site documented in this encounter Results * Differential, Automated (11/16/2014 9:43 AM EDT) Neutrophil % 61.7 % CERNER MILLENNIUM Neutrophil Absolute 2.38 1.50 - 6.30 x10(3)/mcL CERNER MILLENNIUM Lymph % 24.7 % CERNER MILLENNIUM Lymphocytes Abs 1.0 1.0 - 3.6 x10(3)/mcL CERNER MILLENNIUM Monocyte % 9.4 % CERNER MILLENNIUM Monocyte Abs 0.4 0.2 - 1.0 x10(3)/mcL CERNER MILLENNIUM Eos % 3.9 % CERNER MILLENNIUM Eosinophils Abs 0.2 0.0 - 0.5 x10(3)/mcL CERNER MILLENNIUM Basophil % 0.3 % CERNER MILLENNIUM Baso Absolute 0.0 0.0 - 0.2 x10(3)/mcL CERNER MILLENNIUM Immature Gran % 0.00 % CERN ER MILLENNIUM Comment: Immature granulocytes(IG's)percentage and absolute count will include metamyelocytes, myelocytes, and promyelocytes. Blood smears from CBCs yielding IG's will be scanned manually for concordance. If this scan disagrees with the automated IG or if promyelocytes are noted, a manual differential will be performed. Immature Gran Absolute 0.00 0.00 - 0.05 x10(3)/mcL CERNER MILLENNIUM Blood specimen (specimen) 11/16/2014 9:43 AM EDT 11/16/2014 9:58 AM EDT Narrative Resulting Agency Comment Spec In Lab Kirill Saavedra MD HEMATOLOGY ORDERABLE S CERNER MILLENNIUM * (ABNORMAL) Hemogram (11/16/2014 9:43 AM EDT) White Blood Cell 3.8(L) 4.0 - 10.0 x10(3)/mc L CERNER MILLENNIUM Red Blood Cell 5.16 3.93 - 5.22 x10(6)/mc L CERNER MILLENNIUM Hemoglobin 15.1 11.2 - 15.7 gm/dL CERNER MILLENNIUM Hematocrit 43.0 34.0 - 45.0 % CERNER MILLENNIUM Mean Cell Volume 83.3 79.0 - 94.0 fL CERNER MILLENNIUM Mean Cell Hemoglobin 29.3 26.6 - 32.2 pg CERNER MILLENNIUM Mean Cell Hemoglobin Concentration 35.1 32.0 - 36.5 gm/dL CERNER MILLENNIUM Platelet 230 145 - 370 x10(3)/mc L CERNER MILLENNIUM RDW Standard Deviation 40.3 35.0 - 46.0 fL CERNER MILLENNIUM RDW coefficient of variation 13.4 10.9 - 14.4 % CERNER MILLENNIUM Mean Platelet Volume 9.8 9.0 - 12.0 fL CERNER MILLENNIUM Blood specimen (specimen) 11/16/2014 9:43 AM EDT 11/16/2014 9:58 AM EDT Narrative Resulting Agency Comment Spec In Lab Kirill Saavedra MD HEMATOLOGY ORDERABLE S CERNER MILLENNIUM * (ABNORMAL) Comprehensive metabolic panel (non-fasting) (11/16/2014 9:43 AM EDT) [facility] Glucose 102 65 - 199 mg/dL CERNER MILLENNIUM Comment:Diabetes: >=200 mg/d L plus symptoms Blood Urea Nitrogen 13 8 - 18 mg/dL CERNER MILLENNIUM Creatinine 0.51(L) 0.70 - 1.20 mg/dL CERNER MILLENNIUM Comment: Please note that the pediatric reference intervals supplied above were not validated at [facility]. Results from pediatric patients should be interpreted in conjunction to the patient's age, height and muscle mass. Sodium 139 135 - 145 mmol/L CERNER MILLENNIUM Potassium 3.7 3.5 - 5.0 mmol/L CERNER MILLENNIUM Comment: Please note: ??Patients with WBC >100,000 may have falsely elevated Potassium levels. ??For accurate Potassium quantification in these patients send serum separator tube (gold top) for subsequent determinations. ??Contact the Clinical Chemistry Laboratory if there are any questions. Chloride 101 98 - 107 mmol/L CERNER MILLENNIUM Carbon Dioxide 25 22 - 31 mmol/L CERNER MILLENNIUM Anion Gap 13 5 - 15 mmol/L CERNER MILLENNIUM Calcium 9.9 8.5 - 10.5 mg/dL CERNER MILLENNIUM Protein, Total 7.0 6.1 - 8.0 gm/dL CERNER MILLENNIUM Albumin 4.0 3.2 - 5.2 gm/dL CERNER MILLENNIUM Aspartate Aminotransferase 17 0 - 30 unit/L CERNER MILLENNIUM Alanine Aminotransferase 20 0 - 30 unit/L CERNER MILLENNIUM Alkaline Phosphatase 95 40 - 104 unit/L CERNER MILLENNIUM Bilirubin, Total 0.2 0.2 - 1.3 mg/dL CERNER MILLENNIUM Bilirubin, Direct 0.1 0.0 - 0.3 mg/dL CERNER MILLENNIUM Est Glomerular Filtration Rate >60 >=60 CERNER MILLENNIUM Comment: This estimated GFR (eGFR) value was calculated using the MDRD equation which has been validated on patients between the ages of 18 and 70. The MDRD should not be used to assess kidney function in patients < 18 years of age or in patients with extremes of body mass, or in patients with acute kidney failure. This value should be multiplied by 1.2 for patients. For further information please copy and paste the following links into your internet browser. http://[email or web address].com/DHnkdep [email or web address]://[email or web address] Blood specimen (specimen) 11/16/2014 9:43 AM EDT 11/16/2014 9:58 AM EDT Narrative Resulting Agency Comment Spec In Lab Kirill Saavedra MD CHEMISTRY ORDERABLES MARI MILLANIUM documented in this encounter Visit Diagnoses Diagnosis Malignant neoplasm of breast (female), unspecified site documented in this encounter Care Teams Nailing Machine Operator Automatic Relationship Specialty Start Date End Date Ag Trent MD [address] [place] [address] PCP - General 02/02/14 documented as of this encounter
--- OUTSIDE RECORDS SUMMARY | 2024-02-17 15:57 | XMS_ITS | Encounter Summary ---
Author Organization [facility] Address [facility] [place] [address] Care Team Providers Care Portfolio Lead Name Role Phone Ag Trent MD Primary Care Provider [phone] Reason for Visit * Reason Comments Follow-up Encounter Details Date Type Department Care Team (Late st Contact Info) Description 05/04/2015 3:30 PM EST Office Visit Hematology [place] [phone] Shaen Copeland MD [facility] [place] [address] Malignant neoplasm of left female breast, unspecified [...] Pressure - - Pulse - - Temperature 36.8 ??C (98.2 ??F) 05/04/2015 3:40 PM ES T Respiratory Rate - - Oxygen Saturation - - Inhaled Oxygen Concentration - - Weight - - Height - - Body Mass Index - - documented in this encounter Progress Notes * Shane Copeland MD - 05/04/2015 3:58 PM EST Narda Rivera is a 64-year-old woman who returns after left breast partial [...] adjuvant chemo, then XRT. She is on arimidex. She now returns for a check. She [...] present No Date of last follow up 05/04/15 SHANE COPELAND MD 05/04/2015 documented in this encounter Plan of Treatment Not on file documented as of this encounter Results * Mammo Screen CAD and Gualberto Bilat (Generic) (05/15/2016 2:02 PM EST) Anatomical Region Laterality Modality Breast Bilateral Mammography Narrative 05/16/2016 9:08 AM EST REASON FOR EXAM: Screening. History of [...] Center. BIRADS CATEGORY 2: BENIGN FINDINGS [employer] and [employer] Society of [...] of breast Malignant neoplasm of left female breast, unspecified site of breast documented in this encounter Care Teams Portfolio Lead Relationship Specialty Start Date End Date Ag Trent MD [address] [place] [id number] PCP - General 02/02/14 documented as of this encounter
--- OUTSIDE RECORDS SUMMARY | 2024-02-17 15:57 | XMS_ITS | Encounter Summary ---
Author Organization [facility] Address [facility] [place] [address] Care Team Providers Care Hydrometer Tester Name Role Phone Ag Trent MD Primary Care Provider [phone] Reason for Visit * Reason Comments Follow-up Encounter Details Date Type Department Care Team (Late st Contact Info) Description 11/16/2014 2:50 PM EDT Follow-[place] [phone] CLINIC, Shane Turner MD [facility] [place] [address] Personal history of malignant neoplasm of breast [...] - Inhaled Oxygen Concentration - - Weight 80 kg (176 lb 6.4 oz) 11/16/2014 3:29 PM EDT Height - - Body Mass Index 30.87 11/08/2014 1:48 PM EDT documented in this encounter Progress Notes * Shane Copeland MD - 11/16/2014 3:50 PM EDT COPY: Kirill Saavedra M.D. Clau Alfonso M.D. Ag Trent M.D. Narda Rivera is a 64-year-old woman who [...] treated with adjuvant chemo, then XRT. She did not tolerate arimidex, and will be starting a different AI soon. She now returns for a check. She has not felt any breast masses and denies symptoms of metastases. She complains of discomfort at the site of her right subclavian mediport (which has been removed). On physical exam there are no right or left breast masses. There is no axillary adenopathy on either side. She has full ROM of the left arm and no arm edema. The mediport scar is not infected. Left mammo from today looks benign to my eye. Impression: No evidence of breast cancer recurrence. Plan: I will plan to see her back in 6 months with a bilateral mammogram. Comprehensive Breast Program Surgery Follow Up Note Range of motion of surgical arm complete Lymphedema present No Cosmesis-surgeon reported Cosmesis-patient reported Excellent Excellent Local or regional recurrence No Contralateral cancer present No Distant recurrence present No Date of last follow up 11/16/14 SHANE COPELAND MD 11/16/2014 documented in this encounter Plan of Treatment Not on file documented as of this encounter Results * Mammo Digital Bilateral [...] BIRADS CATEGORY 2: BENIGN FINDINGS * ??[employer] and The Society of [...] Personal history of malignant neoplasm of breast Personal history of malignant neoplasm of breast documented in this encounter Care Teams Hydrometer Tester Relationship Specialty Start Date End Date Ag Trent MD [address] [place] [address] PCP - General 02/02/14 documented as of this encounter
--- OUTSIDE RECORDS SUMMARY | 2024-02-17 15:57 | XMS_ITS | Encounter Summary ---
Author Organization [facility] Address [facility] [place] [address] Care Team Providers Care Heel Seat Filler Name Role Phone Ag Trent MD Primary Care Provider [phone] Encounter Details Date Type Department Care Team (Late st Contact Info) Description 11/15/2014 Telephone Hematology/Oncology at [address] [phone] Kiarra Madrid RN Social History Tobacco Use Types Packs/Day [...] Telephone Encounter - Kiarra Madrid RN - 11/15/2014 10:43 AM EDT Narda called this morning stated she did not like how she felt on arimidex. She has taken it for a couple of days and stated first day she felt drowsy and then last night she woke up and stated all her nerves were tingling and she could not sit still. She is wondering if there is anything else she can try. Spoke with Dr. Saavedra who states she can try aromasin 25 mg daily. Pt agrees to a 30 day supple, called per pt request to her pharmacy. documented in this encounter Plan of Treatment Not on file documented as of this encounter Visit Diagnoses Diagnosis Breast cancer, female, left documented in this encounter Care Teams Heel Seat Filler Relationship Specialty Start Date End Date Ag Trent MD [address] [place] [address] PCP - General 02/02/14 documented as of this encounter
--- OUTSIDE RECORDS SUMMARY | 2024-02-17 15:57 | XMS_ITS | Encounter Summary ---
Author Organization [facility] Address [facility] [place] [address] Care Team Providers Care Store Sales Consultant Name Role Phone Ag Trent MD Primary Care Provider [phone] Reason for Visit * Reason Comments Radiation Treatment Encounter Details Date Type Department Care Team (Late st Contact Info) Description 09/27/2014 11:30 AM EDT Office Visit Radiation Oncology at [address] [phone] Maisha Alfonso MD [facility] [place] [address] Breast cancer, female, left Discharge Disposition: Home [...] Sign Reading Time Taken Comments Blood Pressure 97/51 09/27/2014 11:50 AM EDT Pulse 62 09/27/2014 11:50 AM EDT Temperature 36.7 ??C (98.1 ??F) 09/27/2014 1 1:50 AM EDT Respiratory Rate 20 09/27/2014 11:5 0 AM EDT Oxygen Saturation 96% 09/27/2014 11: 50 AM EDT Inhaled Oxygen Concentration - - Weight 80.9 kg (178 lb 6.4 oz) 09/27/2014 11:50 AM EDT room #1 with shoes Height - - Body Mass Index 31.22 08/09/2014 9:02 AM EDT documented in this encounter Progress Notes * Maisha Alfonso MD - 09/27/2014 11:52 AM EDT DIAGNOSIS: Breast, L, IDC w/lobular features; high gr, ER+KY+, Jbz0iam-, s/p lumpectomy & SNB, pT2 pN1a, stage II, +extensive LVI. S/p adjuvant chemo. CURRENT TREATMENT DOSE: 36 Gy L supraclav, L axilla, L breast ANTICIPATED TOTAL DOSE: 50.4 Gy L supraclav, L axilla & L breast; 60.4 Gy lumpectomy bed L breast Current # of xrt received: 20 Anticipated total # of xrt txs: 28 L supraclav, L axilla & L breast; 33 lumpectomy bed L breast Evaluation of port verification films: Approved. For details, see electronic film record in [employer]. Changes in Medical Condition: Still w/sore throat & reports odynophagia; both symptoms w/o chart changer past wk; takes gaviscon & uninterested in taking additional med for it. Skin w/in irrad'd area ok. No lightheadedness. Pain?: No. Physical Exam: BP 97/51 Pulse 62 Temp(Src) 36.7 ??C (98.1 ??F) (Oral) Resp 18 SpO2 96% A&Ox3, in NAD. Mild erythema w/in irrad'd area, w/mild folliculitis in UIQ; skin intact. Xrays: 09/02/14 CT ch to eval for PE: No PE. Questionable small area of RLL infiltration, atelectasis&/or scarring. Response to xrt: As expected. Irradiation Related Symptoms: Esophagitis. Skin rxn. Treatment for Symptom Control: Gaviscon. Prilosec. Tums. Madhu's cream. Pain Management: Gaviscon. Recommendation on Continuing Course of xrt: Cont. BP a little low today - encouraged to drink @ least 6 cups fluid/d. Recheck bp tomorrow. documented in this encounter Miscellaneous Notes * Addendum Note - Maisha Alfonso MD - 09/27/2014 1:48 PM EDTAddended by: MAISHA ALFONSO on: 09/27/2014 01:48 PM Modules accepted: Level of Service documented in this encounter Plan of Treatment Not on file documented as of this encounter Visit Diagnoses Diagnosis Breast cancer, female, left documented in this encounter Care Teams Store Sales Consultant Relationship Specialty Start Date End Date Ag Trent MD [address] [place] [id number] PCP - General 02/02/14 documented as of this encounter
--- OUTSIDE RECORDS SUMMARY | 2024-02-17 15:57 | XMS_ITS | Encounter Summary ---
Author Organization [facility] Address [facility] [place] [address] Care Team Providers Care Senior Embedded Software Engineer Name Role Phone Ag Trent MD Primary Care Provider [phone] Encounter Details Date Type Department Care Team (Late st Contact Info) Description 07/13/2015 Telephone Hematology/Oncology at [address] [phone] Nataly Real I RN Social History Tobacco Use Types Packs/Day [...] Telephone Encounter - Nataly Real RN - 07/13/2015 1:58 PM EDT Received call from patient who reports that on Friday she stopped her anastazole. She has been taking it for 6 months and says the joint pain and fatigue are not tolerable. She says she is having difficulty working. Today she is beginning to feel better. She has a rx for Femara and realizes that she should not be without medication. Dr Vallejo notified via e-mail. She can try Femara 2.5 mg daily, it may cause joint pain. Notified patient who now says that she needs a new rx for Femara sent to [facility]. documented in this encounter Plan of Treatment Not on file documented as of this encounter Visit Diagnoses Not on filedocumented in this encounter Care Teams Senior Embedded Software Engineer Relationship Specialty Start Date End Date Ag Trent MD [address] [place] [address] PCP - General 02/02/14 documented as of this encounter
--- OUTSIDE RECORDS SUMMARY | 2024-02-17 15:57 | XMS_ITS | Encounter Summary ---
Author Organization [facility] Address [facility] [place] [address] Care Team Providers Care Sales And Marketing Representative Name Role Phone Ag Trent MD Primary Care Provider [phone] Encounter Details Date Type Department Care Team (Late st Contact Info) Description 11/16/2014 Orders Only [place] [address] Kirill Saavedra MD [facility] DR HEMATOLOGY AND ONCOLOGY [place] [id number] Malignant neoplasm of breast (female), unspecified site Social History Tobacco Use Types Packs/Day Years [...] site documented in this encounter Care Teams Sales And Marketing Representative Relationship Specialty Start Date End Date Ag Trent MD [address] [place] [address] PCP - General 02/02/14 documented as of this encounter
--- OUTSIDE RECORDS SUMMARY | 2024-02-17 15:57 | XMS_ITS | Encounter Summary ---
Author Organization [facility] Address [facility] [place] [address] Care Team Providers Care Manager Power Name Role Phone Ag Trent MD Primary Care Provider [phone] Reason for Visit * Reason Onset Date Comments Follow-up 05/18/2015 Encounter Details Date Type Department Care Team (Late st Contact Info) Description 05/18/2015 Telephone Hematology/Oncology at [address] [phone] Kiarra Madrid RN Follow-up Social [...] Telephone Encounter - Kiarra Madrid RN - 05/18/2015 3:13 PM EST Patient had cmp and vitamin d done Tuesday 05/16, lab also ran TSH by mistake and it was high. Colten Sanchez PHARMACY OPERATIONS SPECIALIST wanted pt contacted and review how she is taking levothyroxine. Patient states she takes it an hour after meals and tries to wait an hour before eating but is not always successful in fact on 05/16 she stated she did not take it. Suggested she takes it first thing when she wakes up and not toeat for 30 minutes. She stated he PCP office had called and told her to up medication another 25 mcg. I asked her to call PCP office back and review with them how she has been taking it and if she should still go up on medication or wait till she is taking it appropriately . Pt agreed with plan. documented in this encounter Plan of Treatment Not on file documented as of this encounter Visit Diagnoses Not on filedocumented in this encounter Care Teams Manager Power Relationship Specialty Start Date End Date Ag Trent MD [address] [place] [address] PCP - General 02/02/14 documented as of this encounter
--- OUTSIDE RECORDS SUMMARY | 2024-02-17 15:57 | XMS_ITS | Encounter Summary ---
Author Organization [facility] Address [facility] [place] [address] Care Team Providers Care Director Of Vocational Guidance Name Role Phone Ag Trent MD Primary Care Provider [phone] Encounter Details Date Type Department Care Team (Late st Contact Info) Description 09/14/2014 Notes Only [place] [address] Kirill Saavedra MD [facility] [address] HEMATOLOGY AND ONCOLOGY [place] [id number] Social History Tobacco Use Types Packs/Day Years [...] Progress Notes * Yulissa Mcguire RN - 09/21/2014 10:09 AM EDT Research Study Note; Week 24 phone call 09/14/14 Control arm [id number]: Effects of an Exercise Intervention on Physical Activity during Chemotherapy for Patients with Early Stage Breast Cancer PC to Narda to obtain exercise log data from 09/06/14 - 09/12/14. Narda reported that she exercised for 65 min mostly walking this week (10 min hula hoop). Narda is still not sure if the pedometer is recording steps correctly. The 3rd that was sent to her seems to be accurate for 6 out of 7 days this week. She agreed to use the last pedometer and be sure it is positioned correctly. Average daily steps for the week was 4090. Narda still feels neutral about exercising but agrees to continue on study. Next PC is in one month. documented in this encounter Plan of Treatment Not on file documented as of this encounter Visit Diagnoses Not on filedocumented in this encounter Care Teams Director Of Vocational Guidance Relationship Specialty Start Date End Date Ag Trent MD [address] [place] [address] PCP - General 02/02/14 documented as of this encounter
--- OUTSIDE RECORDS SUMMARY | 2024-02-17 15:57 | XMS_ITS | Encounter Summary ---
Author Organization [facility] Address [facility] [place] [address] Care Team Providers Care Child Care Director Name Role Phone Ag Trent MD Primary Care Provider [phone] Reason for Visit * Reason Onset Date Comments Results 02/28/2016 Encounter Details Date Type Department Care Team (Late st Contact Info) Description 02/28/2016 Telephone Hematology Oncology at [address] [phone] Nataly Real RN Results Social History Tobacco Use Types Packs/Day Years [...] Telephone Encounter - Nataly Real RN - 02/28/2016 11:27 AM EST Received [facility] message from clinical clerk secretary Narda was wondering if she could get the results of her bone scan. Her number is [phone]. Placed call to notify patient. No evidence of bony metastasis. documented in this encounter Plan of Treatment Not on file documented as of this encounter Visit Diagnoses Not on filedocumented in this encounter Care Teams Child Care Director Relationship Specialty Start Date End Date Ag Trent MD [address] [place] [address] PCP - General 02/02/14 documented as of this encounter
--- OUTSIDE RECORDS SUMMARY | 2024-02-17 15:57 | XMS_ITS | Encounter Summary ---
Author Organization [facility] Address [facility] [place] [address] [place] [address] Care Team Providers Care Crossing Watchman Name Role Phone Ag Trent MD Primary Care Provider [phone] Reason for Visit * Reason Comments Follow-up Encounter Details Date Type Department Care Team (Late st Contact Info) Description 02/07/2015 2:30 PM EST Office Visit Hematology/Oncology at [address] [phone] Kirill Saavedra MD [facility] HEMATOLOGY [place] [address] Personal history of breast cancer; Osteopenia Social History Tobacco Use Types Packs/Day Years [...] Sign Reading Time Taken Comments Blood Pressure 136/70 02/07/2015 2:29 PM EST Pulse 57 02/07/2015 2:29 PM EST Temperature 36.7 ??C (98.1 ??F) 02/07/2015 2:29 PM ES T Respiratory Rate 16 02/07/2015 2:29 PM EST Oxygen Saturation 98% 02/07/2015 2:29 PM EST Inhaled Oxygen Concentration - - Weight 82.1 kg (181 lb) 02/07/2015 2:29 PM EST Height 161 cm (5' 3.39) 02/07/2015 2:29 PM EST Body Mass Index 31.67 02/07/2015 2:29 PM EST documented in this encounter Progress Notes * Kirill Saavedra MD - 02/07/2015 3:19 PM EST Diagnosis: Left 3.5 cm IDC with lobular features, lymphovascular invasion present, SLN 2/2 positive, ER+/[place]+, Her-2 unaplified. Subjective:I feel fine HPI: Ms. Narda Rivera is 64 y.o. female Referred to us for consultation by Dr. Cohen on new diagnosis of breast cancer. She initially presenteda mass in her upper outer left breast with calcificationson a screening mammogram in December 2013.The main mass wasbiopsied showing infiltrating ductal and lobular carcinoma, ER positive, [id number]. MRI was then performed that showed the [...] Synthroid. She felt better and resumed Arimidex about 6 weeks ago Ms. Rivera tolerates Arimidex well with no significant side effects. PMH: Hypothyroidism on Synthroid Patient Active Problem List Diagnosis ??? Malignant neoplasm of left female breast (BREAST CANCER) Diagnosis: Left 3.5 cm IDC with lobular features, lymphovascular invasion present, SLN 2/2 positive, ER+/[place]+, Her-2 unaplified, T2,at least N1a, Mx Treatment:s/p [...] in right breast. Examination was done in [facility]: Regular rate and rhythm, S1, S2 [...] or inguinal areas. Neurologic: Normal Vitals BP 136/70 mmHg Pulse 57 Temp(Src) 36.7 ??C (98.1 ??F) (Oral) Resp 16 Ht 161 cm (5' 3.39) Wt 82.101 kg (181 lb) BMI 31.67 kg/m2 SpO2 98% Karnofsky score is 90 [...] count: Score = 3 Total Khalif Score: Trenton Grade III: 8-9 points DCIS: Ductal Carcinoma [...] slide reconstruction) MICROCALCIFICATIONS: Present in nonneoplastic tissue ER/NY/HER2: ER/NY/Her2 Comment: Please see prior biopsy [id number]. HER2 FISH will be repeated on this [...] cancer cells with immunostaining) Stain Intensity: Strong [place] immunoreactivity: Positive (11-90% cancer cells with immunostaining) Stain Intensity: Strong NEGATIVE FOR HER2/DEL AMPLIFICATION Labs: Sodium 141, potassium 3.6, BUN 19, creatinine 0.7, calcium 9.1, TB 0.18, AST 12, ALT 35, alkaline phosphatase 96, total protein 7.1, albumin 3.7, TSH 14.77 (12/01/14), WBC 4.17, hemoglobin 14.2, platelet count 256. Imagin02/02/15, DEXA scan left hip T score [...] features, lymphovascular invasion present, SLN 2/2 positive, ER+/[place]+, Her-2 unaplified, T2,at least N1a, Mx Treatment:s/p [...] years.Will check vit D level Plan: 1. Arimidex 1 mg daily. 2. Next visit with CBC, CMP, vit D level in 3 months Mrs. Rivera is by [...] Priority Date/Time Associated Diagnosis Comments LAB SCAN 02/07/2015 12:00 AM EST documented in this encounter Results * SCAN DOC: LAB (02/07/2015 12:00 AM EST) Scanning Provider MEDIA MGR SCAN EXT O RDR/RSLT documented in this encounter Visit Diagnoses Diagnosis Personal history of breast cancer Personal history of malignant neoplasm of breast Osteopenia Disorder of bone and cartilage, unspecified documented in this encounter Care Teams Crossing Watchman Relationship Specialty Start Date End Date Ag Trent MD [address] [place] [address] PCP - General 02/02/14 documented as of this encounter
--- OUTSIDE RECORDS SUMMARY | 2024-02-17 15:57 | XMS_ITS | Encounter Summary ---
Author Organization [facility] [place] [address] Care Team Providers Care Bridge Carpenter Name Role Phone Ag Trent MD Primary Care Provider Encounter Details Date Type Department Care Team (Late st Contact Info) Description 03/16/2015 Orders Only Hematology Oncology at [address] [phone] Kiarra Madrid RN Breast cancer, female, left Social History Tobacco Use Types Packs/Day [...] left documented in this encounter Care Teams Bridge Carpenter Relationship Specialty Start Date End Date Ag Trent MD [address] [place] [address] PCP - General 02/02/14 documented as of this encounter
--- OUTSIDE RECORDS SUMMARY | 2024-02-17 15:57 | XMS_ITS | Encounter Summary ---
Author Organization [place] [address] Care Team Providers Care Reel Cutter Name Role Phone Ag Trent MD Primary Care Provider [phone] Encounter Details Date Type Department Care Team (Late st Contact Info) Description 07/13/2015 Orders Only Hematology/Oncology at [address] [phone] Nataly Real I RN Malignant neoplasm of left female breast, unspecified [...] breast documented in this encounter Care Teams Reel Cutter Relationship Specialty Start Date End Date Ag Trent MD [address] [place] [address] PCP - General 02/02/14 documented as of this encounter
--- OUTSIDE RECORDS SUMMARY | 2024-02-17 15:57 | XMS_ITS | Encounter Summary ---
Author Organization [facility] Address [facility] [place] [address] Care Team Providers Care Platen Builder Up Name Role Phone Ag Trent MD Primary Care Provider [phone] Encounter Details Date Type Department Care Team (Latest Contact Info) Description 05/15/2016 1:30 PM EST - 05/15/2016 11:59 PM [facility] Hospital [place] [phone] Ibrahima Cohen MD [facility] [place] [address] Malignant neoplasm of left female breast, unspecified site of breast Discharge Disposition: Home Social History [...] Sig Dispensed Refills Start Date End Date CALCIUM CARBONATE/VITAMIN D3 (VITAMIN D-3 ORAL) Take [...] mouth 3 times daily as needed. 03/25/2019 hydrochlorothiazide (HYDRODIURIL) 25 mg Tablet Take 25 mg by mouth daily. 11/14/2016 pravastatin (PRAVACHOL) 10 mg Tablet Take 10 mg by mouth daily. 11/14/2016 documented as of this encounter Plan of Treatment Not on file documented as of this encounter Procedures Procedure Name Priority Date/Time Associated Diagnosis Comments MAMMO SCREENING CAD AND NATHEN BILATERAL Routine 05/15/2016 2:02 PM EST Malignant neoplasm of left female breast, unspecified site of breast documented in this encounter Results * Mammo Screen CAD and Nathen Bilat (Generic) (05/15/2016 2:02 PM EST) Anatomical [...] Center. BIRADS CATEGORY 2: BENIGN FINDINGS [employer] and The Society of [...] breast documented in this encounter Care Teams Platen Builder Up Relationship Specialty Start Date End Date Ag Trent MD [address] [place] [address] PCP - General 02/02/14 documented as of this encounter
--- OUTSIDE RECORDS SUMMARY | 2024-02-17 15:57 | XMS_ITS | Encounter Summary ---
Author Organization Formerly [facility], [facility] Address [facility] [place] [address] Care Team Providers Care Grazing Aide Name Role Phone Ag Trent MD Primary Care Provider [phone] Encounter Details Date Type Department Care Team (Late st Contact Info) Description 10/07/2014 Notes Only Radiation Oncology at [address] [phone] Evette Waddell, RN Social History Tobacco Use Types Packs/Day Years Used Date Smoking Tobacco: Never Smokeless Tobacco: Never Alcohol Use Standard Drinks/Week Comments No 0 (1 standard drink = 0.6 oz pur e alcohol) Sex and Gender Information Value Date Recorded Sex Assigned at Not on file Gender Identity Not on file Sexual Orientation Not on file documented as of this encounter Progress Notes * Evette Yu RN - 10/07/2014 12:48 PM EDT Radiation Oncology Nursing on Treatment Note Patient has received 26 fxs, 4680 cGy To the left breast For treatment of breast cancer. Side effects that patient is experiencing: She states she is having some pain in her left breast and wants to make sure this normal. She grades pain a 2/10 and describes it as a itchy pain in the nipple area. This pain started yesterday. She is applying Jeans cream with some relief. She is currently applying some hydrocortisone 1% cream to some folliculitis upper left breast with relief of itching there and has not tried it tothe nipple yet. She hasn't tried OTC med yet, because she feels the pain is not that severe. She also mentions that her hair and nails have not grown much recently and is very concerned about this. Assessment: Skin red entire breast. Very slight dry desquamation ( a couple very small spots) at the inframammary fold. No other desquamation. Left nipple slightly swollen and red. Her fingernails are painted with blue nail estonian and she is wearing a wide rimmed soft hat. Anticipatory guidance/ interventions: She was reassured that her skin condition is at a degree that we expect to see in this part of her treatment course. She was advised to apply the hydrocortisone cream to nipple for relief of itching. Continue with Jeans cream. She was advised to take OTC med if she finds it painful. As for hair and nail growth. I researched the NCI website and printed off patient information for her regarding this. It explained that sometimes it can take 3 months for regrowth. I shared this with patient and also reassured her that most of our ladies who have chemo first and then get radiation, are still wearing hats or wigs during thier radiation treatments. I reassured her that she is not experiencing any unusual side effects from her past chemo or current radiation treatments. Plan: Patient verbalized understanding of these instructions. She still appears concerned about her hair and nails ,but verbally confirmed that knowing that it is expected is more reassuring for her. Weekly OTV with Dr Alfonso next Friday. documented in this encounter Plan of Treatment Not on file documented as of this encounter Visit Diagnoses Not on filedocumented in this encounter Care Teams Grazing Aide Relationship Specialty Start Date End Date Ag Trent MD [address] [place] [address] PCP - General 02/02/14 documented as of this encounter
--- OUTSIDE RECORDS SUMMARY | 2024-02-17 15:57 | XMS_ITS | Encounter Summary ---
Author Organization [facility] Address [facility] [place] [address] Care Team Providers Care Slitter Operator Name Role Phone Ag Trent MD Primary Care Provider [phone] Encounter Details Date Type Department Care Team (Late st Contact Info) Description 11/16/2014 Orders Only [place] [id number] Kirill Saavedra MD [facility] DR HEMATOLOGY [place] [address] Malignant neoplasm of breast (female), unspecified site [...] documented as of this encounter Results * (ABNORMAL) Comprehensive metabolic panel (non-fasting) (11/16/2014 9:43 AM EDT) [facility] Glucose 102 65 - 199 mg/dL [facility] Comment:Diabetes: >=200 mg/d L plus symptoms Blood Urea Nitrogen 13 8 - 18 mg/dL [facility] Creatinine 0.51(L) 0.70 - 1.20 mg/dL [facility] Comment: Please note that the pediatric reference intervals supplied above were not validated at [facility]. Results from pediatric patients should be interpreted [...] the following links into your internet browser. http://Naehas/DHnkdep [email or web address] Blood specimen (specimen) 11/16/2014 9:43 AM EDT 11/16/2014 9:58 AM EDT Narrative Resulting Agency Comment Spec In Lab Kirill Saavedra MD CHEMISTRY ORDERABLES [facility] documented in this encounter Visit Diagnoses Diagnosis Malignant neoplasm of breast (female), unspecified site documented in this encounter Care Teams Slitter Operator Relationship Specialty Start Date End Date Ag Trent MD [address] [place] [address] PCP - General 02/02/14 documented as of this encounter
--- OUTSIDE RECORDS SUMMARY | 2024-02-17 15:57 | XMS_ITS | Encounter Summary ---
Author Organization [facility] Address [facility] [place] [address] Care Team Providers Care Counselling Psychologist Name Role Phone Ag Trent MD Primary Care Provider [phone] Encounter Details Date Type Department Care Team (Late st Contact Info) Description 09/29/2014 11:30 AM EDT Ancillary Appointment Hematology/Oncology at [address] [phone] [facility] [place] [address] Social History Tobacco Use Types Packs/Day Years Used Date Smoking Tobacco: Never Smokeless Tobacco: Never Alcohol Use Standard Drinks/Week Comments No 0 (1 standard drink = 0.6 oz pur e alcohol) Sex and Gender Information Value Date Recorded Sex Assigned at Not on file Gender Identity Not on file Sexual Orientation Not on file documented as of this encounter Progress Notes * Karen Padilla, TIN - 09/29/2014 10:55 AM EDT [facility] Dietitian Follow Up Assessment Seen By: Trish Padilla, MS, RD, LEAD MASSAGE THERAPIST, LD Patient and diagnosis: Was asked to meet with pt by Dr. Rollins, was only able to meet briefly d/t3 kg wt loss in one week and mouth sores. 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 Assessment: HPI: Patient Active Problem List Diagnosis Code ??? Malignant neoplasm of left female breast (BREAST CANCER) 174.9 ??? Other specified prophylactic or treatment measure V07.8 ??? Breast cancer, left breast 174.9 ??? Mucositis 528.00 Meds: Labs: NNL Wt: 80.9 kg on 09/27/14 Previous Wt: 79.8 kg on 08/09/14; 5% decr in 6 wks; moderate - severe 83.9 kg on 06/21/14; gain 83.4 kg on 05/24/14; gain Oncology Vitals 05/10/2014 Weight 83.008 kg Height 161 cm Wt Hx: UBW: % UBW: IBW: 51.8 kg +/- 10% % IBW: BMI: 32.1 ___ Edema ___ Ascites ___Muscle wasting Calorie needs: 1200 Protein needs: 78 Fluid needs: 2 L Food Intake: States she is starting to feel better from last cycle ~ mid July. Tastes is returning, developing heart burn. Am: Always have egg and cheese omlette, 2 p toast and cup of tea Noon: Pm: Fried wantons Snacks: apple, pear, grapes - tends to graze, popsicle, Fluid: lots of tea - cup of black tea in the am - uses one bag throughout the day. Welches grape juice sometimes Supplements/Frequency: ___ Ensure/Plus ___ Boost/Plus ___ CIB ___ Other: Teas, vitamins, or other nutritional supplements: vit D, hasn't been taking d/t carafate Food allergies or avoidances: denies Appetite: decr d/t mouth sores. Has carafate and feels this is helping. Nausea: denies Vomiting: denies Chewing: mouth sores. Stopped baking soda/salt rinses when she got carafate Dentition: Swallowing: feels throat is closed up Taste Changes: hypoguesia Bowels: Improving, was taking smooth moves tea Food availability/purchasing, meal planning and preparation: She does, has a friend staying with her and she does help to share cooking. Depression: Social Support: Economic Issues: Physical Activity: Ride bike for 10 min/d Level of Motivation/Readiness to Change: Nutrition Diagnosis: Met with Narda while she was in clinic for RT. From RN's note yesterday, 09/28, she is having esophagitis. Reviewed soft, bland protein-rich foods and foods that could irritate esophagus. We discussed the concept of food as fuel for metabolism the importance of eating small, frequent, calorically dense, protein-rich meals and snacks throughout the day not only to meet her body's needs, but also to help with weight loss. Also discussed the benefits of physical activity, 20-30 minutes, most days of the week to help withfatigue, stimulate appetite, and preserve muscle mass during treatment. While she is on treatment, we also discussed healthy weight loss parameters of no greater that 2 pounds of loss/week. Reviewed ACS' survivorship guidelines for reducing risk of cancer recurrance: -- Obtain and maintain a healthy weight. -- Physical activity: 150 min/wk of moderate-vigorous physical activity with 2 days resistance/strength training. -- Adopt a plant-based diet: this would include lean meat sources (fish, skinless poultry, eggs, low-fat dairy), fruits, vegetables, and whole grains. Minimize processed foods. -- Dietary Fat Restriction - the WINS study showed a 10% decreased risk of breast cancer recurrencein women with ER positive breast cancer who were randomized to cut their dietary fat intake from 30% to 20% of calories as fat -- Alcohol in moderation (one drink for women, 1-2 for males/d) -- Soy is safe to consume, yet choose foods in whole, most-complete form (i.e. Soy milk, tofu, edema me) -- Daily multivitamin use is also safe. -- Vitamin D3 levels has been shown to be low in BrCa patients, thus recommended getting levels checked (either by PCP or oncologists) supplementing 1,000 IU/d and then retesting levels, if suboptimal in 3-6 mos. The [facility] series from [facility] October 2008 showed a lower risk of breast cancerrecurrence in women with 25-hydroxy Vitamin D levels of 35 ng/mL or higher Weight has trended down during chemo. Tastes is starting to return. She is starting her second weekof RT and reports some heart burn. She has also been experiencing a cold. Saw her PCP last week andwas started on abx. She had questions regarding flax seeds and when the next cooking demonstration would be held. We discussed proper storage of flax seed and the recipes from the previous cooking demo. Nutrition Intervention: ? Increase caloric needs ? Modify diet consistency: ? Increase frequency of meals and snacks ? Need for supplements Nutrition Goals: Educational Handouts provided: -- High Valente Beverages -- Making the most of each bite -- Soft and moist high pro foods -- Taste and smell changes -- AICR's top 10 recommendations for cancer prevention -- On-DPG: Flaxseed storage -- Sore or Irritated Throat Other Recommendations: ? Monitoring and Evaluation: Will follow up with Ms. Rivera in 2-4 week (s) to re-evaluate. documented in this encounter Plan of Treatment Not on file documented as of this encounter Visit Diagnoses Not on filedocumented in this encounter Care Teams Counselling Psychologist Relationship Specialty Start Date End Date Ag Trent MD [address] [place] [address] PCP - General 02/02/14 documented as of this encounter
--- OUTSIDE RECORDS SUMMARY | 2024-02-17 15:57 | XMS_ITS | Encounter Summary ---
Author Organization [facility] Address [facility] [place] [address] Care Team Providers Care Woodwind Instrument Repairer Name Role Phone Ag Trent MD Primary Care Provider [phone] Reason for Visit * Reason Comments Follow-up Encounter Details Date Type Department Care Team (Late st Contact Info) Description 03/12/2016 3:00 PM EST Office Visit Hematology/Oncology at [address] [phone] Kirill Saavedra MD [facility] DR [place] [address] Personal history of breast cancer Social History [...] Sign Reading Time Taken Comments Blood Pressure 133/66 03/12/2016 3:12 PM EST Pulse 64 03/12/2016 3:12 PM EST Temperature 36.8 ??C (98.2 ??F) 03/12/2016 3:12 PM ES T Respiratory Rate 16 03/12/2016 3:12 PM EST Oxygen Saturation 99% 03/12/2016 3:12 PM EST Inhaled Oxygen Concentration - - Weight 82.1 kg (181 lb) 03/12/2016 3:12 PM EST Height 161 cm (5' 3.39) 03/12/2016 3:12 PM EST Body Mass Index 31.67 03/12/2016 3:12 PM EST documented in this encounter Progress Notes * Kirill Saavedra MD - 03/12/2016 3:00 PM EST Diagnosis: 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 Subjective:I feel fine HPI: Ms. Narda Rivera is 65 y.o. female Referred to us for consultation by Dr. Cohen on new diagnosis of breast cancer. She initially presenteda mass in her upper outer left breast with calcificationson a screening mammogram in December 2013.The main mass wasbiopsied showing infiltrating ductal and lobular carcinoma, ER positive, [id number]. MRI was then performed that showed the mass with multiple small satellites around it. Mrs. Rivera underwent left partial mastectomy and sentinel lymph nodebiopsy on February 23, 2014. Postoperative course was uneventful. she completed radiation on October 18. Interval history: Ms. Rivera is in clinic today for followup appointment on breast cancer. She started tamoxifen about 4 weeks ago. . Narda has noticed significant improvement in his joint pain. She states that joint pain is almost 100% dejah. She denies any other pain. PMH: No interval changes Left knee replacement in August 2015 Hypothyroidism on Synthroid Patient Active Problem List Diagnosis ??? Hypothyroidism ??? 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 Examination was done in [facility] Heart: Regular rate and rhythm, S1, S2 [...] or inguinal areas. Neurologic: Normal Vitals BP 133/66 (Patient Position: Sitting) Pulse 64 Temp 36.8 ??C (98.2 ??F) (Oral) Resp 16 Ht 161 cm (5' 3.39) Wt 82.1 kg (181 lb) SpO2 99% BMI 31.67 kg/m2 Karnofsky score is 90 Pathology: ---Pathologic [...] count: Mitotic count: Score = 3 Total Malcolm Score: Malcolm Grade III: 8-9 points DCIS: Ductal Carcinoma [...] slide reconstruction) MICROCALCIFICATIONS: Present in nonneoplastic tissue ER/TN/HER2: ER/TN/Her2 Comment: Please see prior biopsy [id number]. HER2 FISH will be repeated on this [...] cancer cells with immunostaining) Stain Intensity: Strong TN immunoreactivity: Positive (11-90% cancer cells with immunostaining) Stain Intensity: Strong NEGATIVE FOR HER2/DEL AMPLIFICATION Labs: CMP is pending Imagin02/20/16, bone scan: Summary: No evidence of bony [...] features, lymphovascular invasion present, SLN 2/2 positive, ER+/TN+, Her-2 unaplified, T2,at least N1a, Mx Treatment:s/p [...] pain. Bone scan is negative for mets. A cholesterol of anastrozole. Mrs. Rivera tolerated tamoxifen well. She had SPONGE MAKER evaluation.Sutent 20 mg daily. I'll see her back in 3 months was blood work. She will see Dr. Cohen in May for annual mammogram. JACINDA. Ms. Rivera tolerates Tamoxifen well. Continue tamoxifen daily. I'll see her back in 3 months with blood work 2. Osteopenia: borderline, T -1.0. Calcium makes her constipated. Recommend calcium rich food. Willrepeat DEXA scan in 2 years.Will check vit D level Plan: 1. Continue Tamoxifen 20 mg daily 2. F/u with Dr. Cohen 3. Next visit with CMP And CBC in 3 months weeks Mrs. Rivera is by herself today. [...] Priority Date/Time Associated Diagnosis Comments LAB SCAN 03/12/2016 12:00 AM EST LAB SCAN 02/27/2016 12:00 AM EST documented in this encounter Results * SCAN DOC: LAB (03/12/2016 12:00 AM EST) Scanning Provider MEDIA MGR SCAN EXT O RDR/RSLT * SCAN DOC: LAB (02/27/2016 12:00 AM EST) Scanning Provider MEDIA MGR SCAN EXT O RDR/RSLT documented in this encounter Visit Diagnoses Diagnosis Personal history of breast cancer Personal history of malignant neoplasm of breast documented in this encounter Care Teams Woodwind Instrument Repairer Relationship Specialty Start Date End Date Ag Trent MD [address] [place] [address] PCP - General 02/02/14 documented as of this encounter
--- OUTSIDE RECORDS SUMMARY | 2024-02-17 15:57 | XMS_ITS | Encounter Summary ---
Author Organization [facility] [place] [address] Care Team Providers Care Cross Country Coach Name Role Phone Ag Trent MD Primary Care Provider [phone] Encounter Details Date Type Department Care Team (Latest Contact Info) Description 09/28/2014 Unscheduled Encounter Radiation Oncology at [address] [phone] Evette Waddell RN Malignant neoplasm of left breast Social History Tobacco Use Types Packs/Day [...] Sign Reading Time Taken Comments Blood Pressure 110/54 09/28/2014 11:33 AM EDT Pulse 64 09/28/2014 11:33 AM EDT Temperature - - Respiratory Rate - - Oxygen Saturation - - Inhaled Oxygen Concentration - - Weight - - Height - - Body Mass Index - - documented in this encounter Progress Notes * Evette Yu RN - 09/28/2014 11:33 AM EDT Radiation Oncology Nurse Note Message Susana/Evette, please recheck bp tomorrow. Clau Patient seen after radiation treatment today for BP check as it was low yesterday: 110/54 pulse 64 Patient states she is trying to drink more fluids, but admits that it can be painful. She states Amanda offered her a numbing medicine but has declined and she still feels, that at this point, it is not necessary. She has noticed that citrus juice does sting going down and she is eating Triscuitcrackers. Intervention: She was instructed on soft bland diet that avoids the high acid foods/beverages and less roughage to avoid irritation to esophagus. I also suggested food and beverages more at room temperature as excessive temperatures ( either hot or cold) can sometimes cause more discomfort. She was encouraged to notify clinic if she changes her mind and wants medication for relief of her throat pain. Her increased awareness and attempt to drink more fluids was acknowledged and I encouraged her to keep her self well hydrated and follow Dr Alfonso' recommendations of 6 glasses a day. Patient verbalized understanding of these instructions. documented in this encounter Plan of Treatment Not on file documented as of this encounter Visit Diagnoses Diagnosis Malignant neoplasm of left breast Malignant neoplasm of breast (female), unspecified site documented in this encounter Care Teams Cross Country Coach Relationship Specialty Start Date End Date Ag Trent MD [address] [place] [address] PCP - General 02/02/14 documented as of this encounter
--- OUTSIDE RECORDS SUMMARY | 2024-02-17 15:58 | XMS_ITS | Encounter Summary ---
Author Organization [facility] Address [place] [address] Care Team Providers Care Paper Roll Machine Operator Name Role Phone Ag Trent MD Primary Care Provider [phone] Reason for Visit * Reason Comments Chemotherapy Cycle 4 day 1 Encounter Details Date Type Department Care Team (Late st Contact Info) Description 07/26/2014 11:00 AM EDT Office Visit Hematology Oncology at [address] [phone] CLINIC, DR ARANGO HEM/ONC Breast cancer, left breast; Other specified prophylactic or treatment measure; Malignant neoplasm of left female breast (BREAST CANCER) Social History Tobacco Use Types Packs/Day Years Used Date Smoking Tobacco: Never Smokeless Tobacco: Never Alcohol Use Standard Drinks/Week Comments No 0 (1 standard drink = 0.6 oz pur e alcohol) Sex and Gender Information Value Date Recorded Sex Assigned at Not on file Gender Identity Not on file Sexual Orientation Not on file documented as of this encounter Progress Notes * Marie Eli RN - 07/26/2014 11:03 AM EDT INFUSION THERAPY ADMINISTRATION NOTES DIAGNOSIS: Breast Cancer CYCLE #: 4 day 1 REASON FOR VISIT: Taxol SUBJECTIVE Narda offers no complaints. OBJECTIVE LAB DATA: WBC 3.88/Hgb 12.4/Hct 36.1/Plt 373/ANC 2.41 IV ACCESS: Mediport accessed at [facility] Pre administration: Chemotherapy orders independently verified for drug name, route, and dosage per patient's height, weight and BSA by Marie Eli RN and Onsite Pharmacist. REACTIONS (DESCRIPTION, TIME, INTERVENTION AND EFFECTIVENESS) none ASSESSMENT Narda was awake, alert and tolerated treatment well. PLAN Return to clinic per routine. documented in this encounter Plan of Treatment Not on file documented as of this encounter Visit Diagnoses Diagnosis Malignant neoplasm of left female breast (BREAST CANCER) Malignant neoplasm of breast (female), unspecified site Other specified prophylactic or treatment measure documented in this encounter Administered Medications Inactive Administered Medications - up to 3 most recent administrations Medication Order MAR Action Action Date Dose Rate Site dexamethasone (DECADRON) injection 10 mg 10 mg, Intravenous, ONCE, 1 dose, On Fri07/26/14 at 1200, Administer 30 minutes prior to PACLitaxel Given 07/26/2014 12:07 PM EDT 10 mg diphenhydrAMINE (BENADRYL) injection 25 mg 25 mg, Intravenous, ONCE, 1 dose, On Fri07/26/14 at 1200, Administer 30 minutes prior to PACLitaxel, Routine Given 07/26/2014 12:12 PM EDT 25 mg famotidine (PEPCID) injection 20 mg 20 mg, Intravenous, ONCE, 1 dose, On Fri07/26/14 at 1200, Administer 30 minutes prior to PACLitaxel Given 07/26/2014 12:00 PM EDT 20 mg heparin, porcine 100 unit/mL flush 500 Units 500 Units, Intravenous, ONCE PRN, Starting on Fri07/26/14 at 1134, Until Fri07/26/14 at 1803, Line Care, Refer to Intravenous (IV) Procedure: Accessing Implanted Vascular Access Devices (964) procedure and/or Intravenous (IV) Job Aid: Adult Flushing & Catheter Care (6795) job aid for additional information regarding guidelines and administration., Routine Given 07/26/2014 1:55 PM EDT 500 Units ondansetron (ZOFRAN) tablet 16 mg 16 mg, Oral, ONCE, 1 dose, On Fri07/26/14 at 1200, Administer prior to chemotherapy, Routine Given 07/26/2014 12:00 PM EDT 16 mg PACLitaxel (TAXOL) 154 mg in dextrose 5% Non-PVC 275.6667 mL chemo infusion 154 mg (rounded from 154.4 mg = 80 mg/m2/dose ? 1.93 m2 Treatment Plan BSA from Recorded weight), Intravenous, ONCE, 1 dose, On Fri07/26/14 at 1215, Administer over 60 Minutes New Bag 07/26/2014 12:52 PM EDT 154 mg 276 mL/hr sodium chloride 0.9 % flush 5-20 mL 5-20 mL, Intravenous, EVERY 1 MIN PRN, Starting on Fri07/26/14 at 1134, Until Fri07/26/14 at 1803, Line Care, Flush pertains to all indwelling lines. Flush per protocol found in the job aid using the link provided on this medication record. Refer to Intravenous (IV) Job Aid: Adult Flushing & Catheter Care (7691) job aid for additional information regarding guidelines and administration., Routine Given 07/26/2014 1:55 PM EDT 20 mLs documented in this encounter Care Teams Paper Roll Machine Operator Relationship Specialty Start Date End Date Ag Trent MD [address] [place] [address] PCP - General 02/02/14 documented as of this encounter
--- OUTSIDE RECORDS SUMMARY | 2024-02-17 15:58 | XMS_ITS | Encounter Summary ---
Author Organization [facility] Address [facility] [place] [address] Care Team Providers Care Hair Dresser Name Role Phone Ag Trent MD Primary Care Provider [phone] Encounter Details Date Type Department Care Team (Late st Contact Info) Description 08/29/2014 Notes Only Radiation Oncology at [address] [phone] Evette Waddell, RN Social History Tobacco Use [...] Progress Notes * Evette Yu RN - 08/29/2014 12:16 PM EDT Radiation Oncology Nursing Teaching note Patient had her Films Only appointment today and plans to start radiation treatments tomorrow for treatment of left breast cancer. She asked the radiation therapists to see a nurse today to go over some questions. Fatigue: She inquired how much she should expect to experience fatigued and also inquired why fatigue is an issue with radiation treatments when it is not systemic like chemo therapy. She completed chemo about 1 month ago. The rational for radiation induced fatigue was explained. She was reassured that debilitating fatigue is rare for our ladies undergoing this treatment especially if they are normally active prior to the start of treatment. The majority of our patients have a sense of less ambition, but still do their normal activities. She was instructed that some exercise can help her fatigue. Also keeping her weight stable and providing her body adequate nutrition will help with this as well. Alopecia and nails: She voiced concerns of hair loss, ( head, eyebrows and eye lashes) and nail changes( discoloration) during chemo. She inquires when this will return back to normal. She has some hair that has returned on her head, but it seems to have stopped growing recently. She is seeing her chemo doctor, Dr Vallejo, in October of this year. She has spoken with the [employer] about the Look Good Feel Good program and feels like it would not benefit her since it relies heavily on makeup application which she is not interestedin. She also chose not to wear a wig because it feels unnatural. She is wearing a broad rimmed hat and also wearing nail [place] today . I explained that the hair and nail regrowth is not affected by the radiation and therefore she willsee a slow process of regrowth take will take place over the course of her radiation treatments this summer. By the time she sees Dr Saavedra, she will definitely see some improvement. Skin care: She asked for clarification of Jeans cream application : She was instructed to apply Jeans cream to area of radiation left breast, twice a day, no less than2 hours prior to radiation treatment. She was reminded to use only the Timbo's natural deodorant and use a mild soap and the rationale for this. She inquired about swimming and she is concerned about literatire that was provided to her that discourages pool swimming. She swims often at the [facility] pool. She lost some weight with chemo and wishes to keep it off by continuing this activity. I confirmed that our instructions do advise avoiding the chlorine to radiated skin for the same reason she will need to avoid the other chemicals found in deodorants and soaps. She is very concerned about this restriction. This legitimate concern was acknowledged. Since this is very important to her, I advised that she address this with Dr Alfonso. Plan: Weekly OTV every Friday after radiation treatment starting tomorrow. She was advised to further address her swimming concerns with Dr Alfonso then. She agreed with this plan. This visit took place over about 30 mins and she states all her questions and concerns were addressed. She expressed appreciation for this visit. Her primary nurse ( Rc Mohamud) was informed of this unplanned education session today and she plansto give the formal breast care instructions tomorrow and add it to her AVS. documented in this encounter Plan of Treatment Not on file documented as of this encounter Visit Diagnoses Not on filedocumented in this encounter Care Teams Hair Dresser Relationship Specialty Start Date End Date Ag Trent MD [address] [place] [address] PCP - General 02/02/14 documented as of this encounter
--- OUTSIDE RECORDS SUMMARY | 2024-02-17 15:58 | XMS_ITS | Encounter Summary ---
Author Organization [facility] Address [facility] [place] [address] Care Team Providers Care Leaf Binner Name Role Phone Ag Trent MD Primary Care Provider Encounter Details Date Type Department Care Team (Late st Contact Info) Description 08/02/2014 Orders Only Hematology/Oncology at [address] [phone] Kirill Saavedra MD [facility] [address] [place] [address] Social History Tobacco Use Types Packs/Day Years [...] on filedocumented in this encounter Care Teams Leaf Binner Relationship Specialty Start Date End Date Ag Trent MD [address] [place] [address] PCP - General 02/02/14 documented as of this encounter
--- OUTSIDE RECORDS SUMMARY | 2024-02-17 15:58 | XMS_ITS | Encounter Summary ---
Author Organization [facility] Address [facility] [place] [address] Care Team Providers Care Cloth Finishing Range Operator Name Role Phone Ag Trent MD Primary Care Provider [phone] Encounter Details Date Type Department Care Team (Late st Contact Info) Description 06/15/2014 Notes Only H[place] [phone] Kirill Saavedra MD [facility] DR HEMATOLOGY [place] [address] Social History Tobacco Use Types Packs/Day Years [...] Progress Notes * Yulissa Mcguire RN - 06/15/2014 2:49 PM EDT Research Study Note; Week 11 phone call 06/15/14 Control arm A [id number]: Effects of an Exercise Intervention on Physical Activity during Chemotherapy for Patients with Early Stage Breast Cancer Narda used her stationary bike 6/7 days in the past week for 10 minutes each time at an exertion rate of 12 each day which translates to moderate exercise on the WAQAS RPE scale. On her chemo day she did not exercise due to effects of the benadryl. Her daily average steps = 3,337 in the past week. She still feels neutral about her bike exercising, not good, not bad. She asked if she was to continue on the study even after finishing the chemotherapy treatment and starting the radiation therapy.I confirmed that it is the plan as long as she is willing and able to continue for the full 32 weeks. Narda stated she plans to continue. documented in this encounter Plan of Treatment Not on file documented as of this encounter Visit Diagnoses Not on filedocumented in this encounter Care Teams Cloth Finishing Range Operator Relationship Specialty Start Date End Date Ag Trent MD [address] [place] [id number] PCP - General 02/02/14 documented as of this encounter
--- OUTSIDE RECORDS SUMMARY | 2024-02-17 15:58 | XMS_ITS | Encounter Summary ---
Author Organization [facility] Address [facility] [place] [address] Care Team Providers Care Portfolio Director Name Role Phone Ag Trent MD Primary Care Provider [phone] Reason for Visit * Reason Comments Follow-up Encounter Details Date Type Department Care Team (Late st Contact Info) Description 06/21/2014 10:00 AM EDT Follow-Up Hematology Oncology at [address] [phone] Kirill Saavedra MD [facility] DR [place]AT[place] [address] Breast cancer, left breast; Hypokalemia; Hypomagnesemia Discharge Disposition: Home Social History Tobacco Use [...] Sign Reading Time Taken Comments Blood Pressure 135/67 06/21/2014 10:01 AM EDT Pulse 66 06/21/2014 10:01 AM EDT Temperature 37.2 ??C (99 ??F) 06/21/2014 10:01 AM EDT Respiratory Rate 18 06/21/2014 10:01 AM EDT Oxygen Saturation 98% 06/21/2014 10:01 AM EDT Inhaled Oxygen Concentration - - Weight 83.9 kg (185 lb) 06/21/2014 10:01 AM EDT Height 161 cm (5' 3.39) 06/21/2014 10:01 AM EDT Body Mass Index 32.37 06/21/2014 10:01 AM EDT documented in this encounter Progress Notes * Kirill Saavedra MD - 06/21/2014 11:01 AM EDT Diagnosis: 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 Subjective:I feel okay and exercise 10 minutes a day HPI: Ms. Narda Rivera is 63 y.o. female Referred to us for consultation by Dr. Cohen on new diagnosis of breast cancer. She initially presenteda mass in her upper outer left breast with calcificationson a screening mammogram in December 2013.The main mass wasbiopsied showing infiltrating ductal and lobular carcinoma, ER positive, [id number]. MRI was then performed that showed the mass with multiple small satellites around it. Mrs. Rivera underwent left partial mastectomy and sentinel lymph nodebiopsy on February 23, 2014. Postoperative course was uneventful. Interval history: Ms. Rivera is in clinic today for followup appointment and 5-th dose of weekly Taxol. She noticed improvement in swallowing on carafate. Ms. Rivera denies any fever, chills, nausea orvomiting. She complains on mild numbness and tingling in her fingertips PMH: no interval changes Patient Active Problem List Diagnosis ??? Mucositis ??? Breast cancer, left breast ??? Other specified prophylactic or treatment measure ??? Malignant neoplasm of left female breast (BREAST CANCER) Social History: no interval changes Family History: no interval changes OBGYN History: no interval changes Allergies: oxycodone Medications: Reviewed Review of Systems: Constitutional: Negative for fever, chills, activity change, fatigue and unexpected weight change. HEENT: positive for sore throat and mouth sores. Eyes: Negative. Respiratory: Negative for cough, shortness of breath and wheezing. Cardiovascular: Negative for chest pain, palpitations and leg swelling. Gastrointestinal: positive for heartburns, negative for vomiting, abdominal pain, diarrhea and abdominal distention. Genitourinary: Negative for dysuria and difficulty urinating. Musculoskeletal: Negative. Skin: Negative. Neurological: Negative. Hematological: Negative for adenopathy. 10 systems were [...] auscultation bilaterally, respirations unlabored Chest Wall: Left breast is swollen and slightly erythematosus, healed surgical incision in left outer quadrant, no palpable masses or labs and right breast. Examination was done in presents FILOMENA Ramirez. No tenderness or deformity Heart: Regular rate and rhythm, S1, S2 normal, no murmur, rub or gallop Abdomen: Soft, non-tender, bowel sounds active all four quadrants, no masses, no organomegaly. There is no appreciable ascites Extremities: Extremities normal, atraumatic, no cyanosis or edema Pulses: 2+ and symmetric Skin: Skin color, texture, turgor normal, no rashes or lesions Lymph nodes: No palpable lymph nodes in the cervical, supraclavicular, axillary or inguinal areas. Neurologic: Normal Vitals BP 135/67 Pulse 66 Temp(Src) 37.2 ??C (99 ??F) (Oral) Resp 18 Ht 161 cm (5' 3.39) Wt 83.915 kg (185 lb) BMI 32.37 kg/m2 SpO2 98% Karnofsky score is 90 [...] count: Mitotic count: Score = 3 Total Power Score: Power Grade III: 8-9 points DCIS: Ductal Carcinoma [...] slide reconstruction) MICROCALCIFICATIONS: Present in nonneoplastic tissue ER/NE/HER2: ER/NE/Her2 Comment: Please see prior biopsy [id number]. HER2 FISH will be repeated on this [...] cancer cells with immunostaining) Stain Intensity: Strong NE immunoreactivity: Positive (11-90% cancer cells with immunostaining) Stain Intensity: Strong NEGATIVE FOR HER2/DEL AMPLIFICATION Labs: WBC 4.04, hemoglobin 12.4, platelet count 3.1, ANC 2.55, calcium 9.2, BUN 10, creatinine 0.6,albumin 3.3, alkaline phosphatase 80, potassium 3.4, AST 22, ALT 33, magnesium 1.5. Imagin03/15/14, CT scan of chest, abdomen and pelvis: No evidence of abdominal pelvic metastatic disease.No evidence of thoracic metastatic disease. 8 cm fluid collection in the left breast. This likely reflects postsurgical change. 03/15/14 echocardiogram: normal biventricular size and systolic function; estimated LVEF 65%. 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 Will proceed with 5-th dose today 2. Hypokalemia/hypomagnesimia: potassium 3.4 today, Magnesium 1.5. Magnesium sulfate 2 gm today, continue potasiun PO supplementation. 3. Anxiety:controlled on lorazepam 4. Mucositis: Carafate and/or miracle mouthwash PRN Plan: 1. Weekly Taxol today. 2. Magnesium IV today 3. Next visit in 1 weeks with CBC, CMP and weekly Taxol Mrs. Rivera is accompanied by her friend today. The plan was discussed with the [...] Priority Date/Time Associated Diagnosis Comments LAB SCAN 06/21/2014 12:00 AM EDT CHEMOTHERAPY SCAN 06/21/2014 12:00 AM EDT documented in this encounter Results * SCAN DOC: CHEMOTHERAPY (06/21/2014 12:00 AM EDT) Scanning Provider MEDIA MGR SCAN EXT O RDR/RSLT * SCAN DOC: LAB (06/21/2014 12:00 AM EDT) Scanning Provider MEDIA MGR SCAN EXT O RDR/RSLT documented in this encounter Visit Diagnoses Diagnosis Breast cancer, left breast Malignant neoplasm of breast (female), unspecified site Hypokalemia Hypopotassemia Hypomagnesemia Disorders of magnesium metabolism documented in this encounter Care Teams Portfolio Director Relationship Specialty Start Date End Date Ag Trent MD [address] [place] [id number] PCP - General 02/02/14 documented as of this encounter
--- OUTSIDE RECORDS SUMMARY | 2024-02-17 15:58 | XMS_ITS | Encounter Summary ---
Author Organization [facility] Address [facility] [place] [address] Care Team Providers Care Turner Off Name Role Phone Ag Trent MD Primary Care Provider [phone] Encounter Details Date Type Department Care Team (Late st Contact Info) Description 06/29/2014 Notes Only [place] [phone] Kirill Saavedra MD [facility] DR HEMATOLOGY AND ONCOLOGY [place] [id number] Social History Tobacco Use Types Packs/Day Years [...] Progress Notes * Yulissa Mcguire RN - 06/30/2014 10:25 AM EDT Research Study Note; Week 13 phone call 06/29/14 Control arm A [id number]: Effects of an Exercise Intervention on Physical Activity during Chemotherapy for Patients with Early Stage Breast Cancer Narda used her stationary bike 5/7 days in the past week for 10 minutes each time at an exertion rate of 12 each day which translates to moderate exercise on the WAQAS RPE scale. She did not exercise on her day of chemo (Friday). Her daily average steps = 2,949 in the past week. She still feels neutral about her bike exercising, not good, not bad. She stated though that afterwards she feels good. She mentioned that there may be a problem with her Mediport (redness with an opening). She has tocome to [place] to have this checked out on Friday07/01/14. Narda agrees to continue on study. documented in this encounter Plan of Treatment Not on file documented as of this encounter Visit Diagnoses Not on filedocumented in this encounter Care Teams Turner Off Relationship Specialty Start Date End Date Ag Trent MD [address] [place] [address] PCP - General 02/02/14 documented as of this encounter
--- OUTSIDE RECORDS SUMMARY | 2024-02-17 15:58 | XMS_ITS | Encounter Summary ---
Author Organization [facility] Address [facility] [place] [address] Care Team Providers Care Safety Investigator/Cause Analyst Name Role Phone Ag Trent MD Primary Care Provider [phone] Reason for Visit * Reason Comments Radiation Treatment Encounter Details Date Type Department Care Team (Late st Contact Info) Description 08/30/2014 11:15 AM EDT Office Visit Radiation Oncology at [address] [phone] Clau Alfonso MD [facility] [place] [address] Breast cancer, female, left Discharge Disposition: Home [...] Sign Reading Time Taken Comments Blood Pressure 122/67 08/30/2014 11:55 AM EDT Pulse 79 08/30/2014 11:55 AM EDT Temperature - - Respiratory Rate 18 08/30/2014 11:55 AM EDT Oxygen Saturation 97% 08/30/2014 11:55 AM EDT Inhaled Oxygen Concentration - - Weight - - Height - - Body Mass Index - - documented in this encounter Patient Instructions * Patient Instructions* Susana Mohamud RN - 08/30/2014 11:19 AM EDT Information for Patients receiving radiation therapy to the Breast Approximately two weeks after your first treatment, you may begin to experience side effects causedby the radiation. These effects may continue throughout the treatment period and not start improving until 1-2 weeks after treatment is completed. Your doctor will tell you which side effects you aremost likely to experience, when you will notice them and how long they might last. It is important to follow the appropriate instructions to minimize your discomfort. Skin Care ??? Wash skin in the treatment field with lukewarm water and mild or moisturizing soap daily. Blot skin dry with a soft towel. ??? Do not apply any ointment, salve, deodorant, perfume, cologne, cosmetic or self-remedy to the treatment area while you are undergoing radiation and for 1-2 weeks following treatment. An all natural deodorant with no aluminum can be used if necessary. ??? Moisturizing cream will be provided for you. This may be used in the treatment area once daily beginning on your first treatment day. Do not apply 2 hours before your radiation treatments. As dryness/redness develop you can use this more often. ??? Do not rub or scratch the skin in the treatment field. This includes shaving unless you use an electric razor. If your skin becomes dry or itchy, tell your nurse or doctor. If necessary, your doctor may order a medication specifically for this problem. ??? Do not use hot water bottles, heating lights, electric heating pads, or hot packs to the treatment area. ??? Keep treated areas out of the sun throughout the treatment period. Be careful of sun exposure to the treatment field for one year following treatment. Please use SPF> 30 to all exposed areas of skin and limit sun exposure. ??? Avoid tight fitting clothes. We would prefer that you wear a cotton t-shirt instead of a bra. If you are unable to go without a bra please wear a soft cotton bra without underwire. ??? Examine your skin in the treatment area daily and watch for changes. If you cannot reach the whole treatment field ask a family member to look at it and apply cream as needed. Be careful to keep the area under your breast clean and dry as this area can get irritated first. ??? You will meet with your nurse and doctor weekly. They will check your skin and help you with any side effects you are having. Please ask to see the nurse if you have concerns in between these days. ??? During the last weeks of treatment you may notice some peeling of skin and/or a moist reaction.Be sure to let us know if this happens so we can provide you with further skin care instructions.. ??? Continue to stay active, walk daily, eat healthy foods and drink several glasses of water each day. Fatigue You may notice that you feel unusually tired towards the end of treatment. This is not unusual. We recommend that you pace your activities and plan for rest periods to avoid becoming over-tired. Feel free to direct any questions or concerns you may have related to your treatment to your nurse or doctor. [facility] Radiation Oncology Our normal business hours are: Friday - Friday 8 AM to 5 PM [place], [place], [place] For emergent situations after hours please call for either location and ask for the Radiation Oncologist power house control room operator. documented in this encounter Progress Notes * Clau Alfonso MD - 08/30/2014 4:41 PM EDT DIAGNOSIS: Breast, L, IDC w/lobular features; high gr, ER+NC+, Lin7pyw-, s/p lumpectomy & SNB, pT2 pN1a, stage II, +extensive LVI. S/p adjuvant chemo. CURRENT TREATMENT DOSE: 1.8 Gy L supraclav, L axilla, L breast ANTICIPATED TOTAL DOSE: 50.4 Gy L supraclav, L axilla & L breast; 60.4 Gy lumpectomy bed L breast Current # of xrt received: 1 Anticipated total # of xrt txs: 28 L supraclav, L axilla & L breast; 33 lumpectomy bed L breast Evaluation of port verification films: Approved. For details, see electronic film record in [employer]. Changes in Medical Condition: Asks if she can swim in chlorinated water during xrt. Has madhu's cream & knows not to apply it w/in 2 hrs prior to xrt. Pain?: No. Physical Exam: BP 122/67 Pulse 79 Resp 18 SpO2 97% A&Ox3, in NAD. Response to xrt: As expected. Irradiation Related Symptoms: None. Treatment for Symptom Control: Madhu's cream. Pain Management: Not needed. Recommendation on Continuing Course of xrt: Cont. Advised not swimming in chlorinated water during xrt & for 3 wks after xrt completion due to concern about the effect of the chlorine on irradiated skin. Advised pursuing another type of moderate exercise during xrt. documented in this encounter Plan of Treatment Not on file documented as of this encounter Visit Diagnoses Diagnosis Breast cancer, female, left documented in this encounter Care Teams Safety Investigator/Cause Analyst Relationship Specialty Start Date End Date Ag Trent MD [address] [place] [id number] PCP - General 02/02/14 documented as of this encounter
--- OUTSIDE RECORDS SUMMARY | 2024-02-17 15:58 | XMS_ITS | Encounter Summary ---
Author Organization [facility] Address [facility] [place] [address] Care Team Providers Care Director Sales Support Name Role Phone Ag Trent MD Primary Care Provider [phone] Reason for Visit * Reason Comments Chemotherapy Cycle 2 day 8 Encounter Details Date Type Department Care Team (Late st Contact Info) Description 06/21/2014 11:00 AM EDT Office Visit Hematology Oncology at [address] [phone] CL[address], DR ARANGO HEM/ONC Kirill Saavedra MD [facility] [place] [address] Breast cancer, left breast; Other specified prophylactic [...] Progress Notes * Marie Eli RN - 06/21/2014 2:27 PM EDT INFUSION THERAPY ADMINISTRATION NOTES DIAGNOSIS: Breast Cancer CYCLE #: 2 day 8 REASON FOR VISIT: Taxol/Magnesium Replacement SUBJECTIVE Narda offers no complaints. OBJECTIVE LAB DATA: WNL IV ACCESS: Mediport Pre administration: Chemotherapy orders independently verified for [...] 10 mg, Intravenous, ONCE, 1 dose, On Fri06/21/14 at 1145, Administer 30 minutes prior to PACLitaxel Given 06/21/2014 12:00 PM EDT 10 mg diphenhydrAMINE (BENADRYL) injection 25 mg 25 mg, Intravenous, ONCE, 1 dose, On Fri06/21/14 at 1145, Administer 30 minutes prior to PACLitaxel, Routine Given 06/21/2014 12:05 PM EDT 25 mg famotidine (PEPCID) injection 20 mg 20 mg, Intravenous, ONCE, 1 dose, On Fri06/21/14 at 1145, Administer 30 minutes prior to PACLitaxel Given 06/21/2014 12:10 PM EDT 20 mg heparin, porcine 100 unit/mL flush 500 Units 500 Units, Intravenous, ONCE PRN, Starting on Fri06/21/14 at 1126, Until Fri06/21/14 at 1631, Line Care, Refer to Intravenous (IV) Procedure: Accessing Implanted Vascular Access Devices (574) procedure and/or Intravenous (IV) Job Aid: Adult Flushing & Catheter Care (4727) job aid for additional information regarding guidelines and administration., Routine Given 06/21/2014 2:10 PM EDT 500 Units magnesium sulfate 1g in dextrose 5% 100mL 1 g, Intravenous, ONCE, 1 dose, On Fri06/21/14 at 1130, Administer over 60 Minutes Given 06/21/2014 1:20 PM EDT 1 g 100 mL/hr Given 06/21/2014 12:20 PM EDT 1 g 100 mL/hr magnesium sulfate 1g in dextrose 5% 100mL 1 g, Intravenous, ONCE, 1 dose, On Fri06/21/14 at 1130, Administer over 60 Minutes Given 06/21/2014 1:20 PM EDT 1 g 100 mL/hr ondansetron (ZOFRAN) tablet 16 mg 16 mg, Oral, ONCE, 1 dose, On Fri06/21/14 at 1145, Administer prior to chemotherapy, Routine Given 06/21/2014 12:20 PM EDT 16 mg PACLitaxel (TAXOL) 154 mg in dextrose 5% Non-PVC 275.6667 mL chemo infusion 154 mg (rounded from 154.4 mg = 80 mg/m2/dose ? 1.93 m2 Treatment Plan BSA from Recorded weight), Intravenous, ONCE, 1 dose, On Fri06/21/14 at 1245, Administer over 60 Minutes New Bag 06/21/2014 1:00 PM EDT 154 mg 275.7 mL/hr sodium chloride 0.9 % flush 5-20 mL 5-20 mL, Intravenous, EVERY 1 MIN PRN, Starting on Fri06/21/14 at 1126, Until Fri06/21/14 at 1631, Line Care, Flush pertains to all indwelling lines. Flush per protocol found in the job aid using the link provided on this medication record. Refer to Intravenous (IV) Job Aid: Adult Flushing & Catheter Care (0937) job aid for additional information regarding guidelines and administration., Routine Given 06/21/2014 2:10 PM EDT 20 mLs documented in this encounter Care Teams Director Sales Support Relationship Specialty Start Date End Date Ag Trent MD [address] [place] [address] PCP - General 02/02/14 documented as of this encounter
--- OUTSIDE RECORDS SUMMARY | 2024-02-17 15:58 | XMS_ITS | Encounter Summary ---
Author Organization [facility] Address [facility] [place] [address] Care Team Providers Care Roll Over Loader Name Role Phone Ag Trent MD Primary Care Provider [phone] Encounter Details Date Type Department Care Team (Late st Contact Info) Description 07/13/2014 Notes Only [place] [address] Kirill Saavedra MD [facility] DR HEMATOLOGY [place] [address] Social History Tobacco Use Types Packs/Day Years [...] Progress Notes * Yulissa Mcguire RN - 07/13/2014 4:13 PM EDT Research Study Note; Week 15 phone call 07/13/14 Control arm A [id number]: Effects of an Exercise Intervention on Physical Activity during Chemotherapy for Patients with Early Stage Breast Cancer Narda used her stationary bike 4/7 days in the past week for 10 minutes each time at an exertion rate of 12 (moderate exercise). She took a walk outside for 8 min one day, exertion rate 13 (brisk) and feeling scale fairly good (+1). She did not exercise on her day of chemo/Benadryl (Friday) and not the day she had another doctor's appointment and errands. Her daily average steps = 4,070 for the week. Narda stated that this round of treatment is not as bad as the first and that food tastes better. Her friend is visiting and she keeps busy. She stated that she likes being on the study as otherwise she thinks she would not exercise at all. documented in this encounter Plan of Treatment Not on file documented as of this encounter Visit Diagnoses Not on filedocumented in this encounter Care Teams Roll Over Loader Relationship Specialty Start Date End Date Ag Trent MD [address] [place] [id number] PCP - General 02/02/14 documented as of this encounter
--- OUTSIDE RECORDS SUMMARY | 2024-02-17 15:58 | XMS_ITS | Encounter Summary ---
Author Organization [facility] Address [facility] [place] [address] Care Team Providers Care Quick Service Technician Name Role Phone Ag Trent MD Primary Care Provider [phone] Encounter Details Date Type Department Care Team (Late st Contact Info) Description 09/06/2014 11:30 AM EDT Ancillary Appointment Hematology/Oncology at [address] [phone] [facility] [place] [address] Social History Tobacco Use Types Packs/Day Years [...] Progress Notes * Karen Padilla, TIN - 09/06/2014 12:13 PM EDT [facility] Dietitian Follow Up Assessment Seen By: Trish Padilla, MS, RD, RN [employer], LD Patient and diagnosis: Was asked to meet with pt by Dr. Rollins, was only able to meet briefly d/t3 kg wt loss in one week and mouth sores. 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 Assessment: HPI: Patient Active Problem List Diagnosis Code ??? Malignant neoplasm of left female breast (BREAST CANCER) 174.9 ??? Other specified prophylactic or treatment measure V07.8 ??? Breast cancer, left breast 174.9 ??? Mucositis 528.00 Meds: Labs: NNL Wt: NNW Previous Wt: 79.8 kg on 08/09/14; 5% [...] Level of Motivation/Readiness to Change: Nutrition Diagnosis: We discussed the concept of food as [...] levels, if suboptimal in 3-6 mos. The [facility] series from [facility] October 2008 showed a lower risk of [...] for cancer prevention -- On-DPG: Flaxseed storage Other Recommendations: ? Monitoring and Evaluation: Will follow up with Ms. Rivera in 2-4 week (s) to re-evaluate. documented in this encounter Plan of Treatment Not on file documented as of this encounter Visit Diagnoses Not on filedocumented in this encounter Care Teams Quick Service Technician Relationship Specialty Start Date End Date Ag Trent MD [address] [place] [address] PCP - General 02/02/14 documented as of this encounter
--- OUTSIDE RECORDS SUMMARY | 2024-02-17 15:58 | XMS_ITS | Encounter Summary ---
Author Organization [facility] Address [facility] [place] [address] Care Team Providers Care Rayon Coner Name Role Phone Ag Trent MD Primary Care Provider [phone] Encounter Details Date Type Department Care Team (Late st Contact Info) Description 07/06/2014 Notes Only Hematology [place] [address] Kirill Saavedra MD [facility] [address] [place] [address] Social History Tobacco Use Types Packs/Day Years [...] Progress Notes * Yulissa Mcguire RN - 07/06/2014 3:32 PM EDT Research Study Note; Week 14 phone call 07/06/14 Control arm A [id number]: Effects of an Exercise Intervention on Physical Activity during Chemotherapy for Patients with Early Stage Breast Cancer Narda used her stationary bike 6/7 days in the past week for 10 minutes each time at an exertion rate of 12-13 which translates to moderate to somewhat hard exercise on the WAQAS RPE scale. She did not exercise on her day of chemo/Benadryl (Friday). Her daily average steps = 3,124 in the past week.She felt neutral to fairly bad while exercising which she said was due to having to take an antibiotic. The antibiotic was for a possible Mediport infection although after having this checked out at [facility] in [place] it ws deemed not infected. Narda will continue on the study and her pedometer works and she has enough blank logs. documented in this encounter Plan of Treatment Not on file documented as of this encounter Visit Diagnoses Not on filedocumented in this encounter Care Teams Rayon Coner Relationship Specialty Start Date End Date Ag Trent MD [address] [place] [id number] PCP - General 02/02/14 documented as of this encounter
--- OUTSIDE RECORDS SUMMARY | 2024-02-17 15:58 | XMS_ITS | Encounter Summary ---
Author Organization [facility] Address [facility] [place] [address] Care Team Providers Care Account Consultant Name Role Phone Ag Trent MD Primary Care Provider [phone] Encounter Details Date Type Department Care Team (Late st Contact Info) Description 07/20/2014 Notes Only Hematology [place] [address] Kirill Saavedra MD [facility] DR HEMATOLOGY AND ONCOLOGY [place] [id number] Social History Tobacco Use Types Packs/Day Years [...] Progress Notes * Yulissa Mcguire RN - 07/20/2014 12:45 PM EDT Research Study Note; Week 16 phone call 07/20/14 Control arm A [id number]: Effects of an Exercise Intervention on Physical Activity during Chemotherapy for Patients with Early Stage Breast Cancer Narda reported that she had a bad week. She had c/o feeling hyperactive, nauseous and had a rash for several days although now it is getting better. (Per Dr. Quigley's note the grade of rash = 1.) She walked outside on two days for a total of 21 min and she danced for 5 min on one day. During these exercises she documented as her feeling +1 (fairly good). She recorded her steps daily (average daily steps= 2,798) She forgot to look at her pedometer pre and post her walk. She will try to remember to document this next week if walking. documented in this encounter Plan of Treatment Not on file documented as of this encounter Visit Diagnoses Not on filedocumented in this encounter Care Teams Account Consultant Relationship Specialty Start Date End Date Ag Trent MD [address] [place] [address] PCP - General 02/02/14 documented as of this encounter
--- OUTSIDE RECORDS SUMMARY | 2024-02-17 15:58 | XMS_ITS | Encounter Summary ---
Author Organization [facility] Address [facility] [place] [address] Care Team Providers Care Scrap Metal Processing Worker Name Role Phone Ag rTent MD Primary Care Provider [phone] Encounter Details Date Type Department Care Team (Latest Contact Info) Description 07/01/2014 12:06 PM EDT - 07/01/2014 11:59 PM EDT Hospital Encounter Hematology [place] [phone] Kirill Saavedra MD [facility] DR [place] [address] Malignant neoplasm of left female breast (BREAST CANCER); Breast cancer, unspecified laterality Discharge Disposition: Home Social History Tobacco Use [...] Sig Dispensed Refills Start Date End Date aspirin 81 mg Tablet, Delayed Release (E.C.) Take 81 mg by mouth daily. cephALEXin (KEFLEX) 500 mg CapsuleIndications:Mal ignant neoplasm of left female breast Take 1 capsule by mouth 4 times daily. 28 capsule 0 06/28/2014 07/05/2014 magnesium oxide (MAG-OX) 400 mg TabletIndications:[address] st cancer, left breast Take 1 tablet by mouth daily. 30 tablet 3 06/14/2014 07/05/2014 Dxawbiphw-Ddnmvhsih-Hk -Mag-Sim 962-26-360-40 mg/30 mL MouthwashIndications:M ucositis 5 mLs by Mucous Membrane route every 2 hours as needed. 237 mL 3 05/31/2014 07/26/2014 sucralfate (CARAFATE) 100 mg/mL SuspensionIndications: Mucositis Take 10 mLs by mouth 4 times daily. 420 mL 0 05/31/2014 07/05/2014 potassium chloride (K-DUR/KLOR-CON) 20 mEq Tab Sust.Rel. Particle/CrystalIndica tions:Malignant neoplasm of left female breast Take 1 tablet by mouth daily. 30 tablet 1 05/24/2014 07/05/2014 bisacodyl (DULCOLAX) 5 mg Tablet, Delayed Release (E.C.) Take 5 mg by mouth daily as needed for Constipation. 05/16/2015 polyethylene glycol (MIRALAX) 17 gram Powder in Packet Take 17 g by mouth 3 times daily as needed. 03/25/2019 prochlorperazine (COMPAZINE) 10 mg TabletIndications:Hetal gnant neoplasm of left female breast Take 1 tablet by mouth every 6 hours as needed for Nausea. 30 tablet 3 04/12/2014 10/04/2014 LORazepam (ATIVAN) 0.5 mg TabletIndications:Hetal gnant neoplasm of left female breast Take 1 tablet by mouth every 6 hours as needed for Anxiety (nausea). 30 tablet 0 04/12/2014 08/09/2014 ERGOCALCIFEROL, VITAMIN D2, (VITAMIN D ORAL) Take 1 tablet by mouth. 05/15/2016 ondansetron (ZOFRAN) 8 mg Tablet Take 1 tablet by mouth every 8 hours as needed for Nausea. 60 tablet 1 03/08/2014 10/04/2014 oxyCODONE (ROXICODONE) 5 mg Tablet Take 1 tablet by mouth every 4 hours as needed for Pain. 25 tablet 0 02/22/2014 10/04/2014 levothyroxine (SYNTHROID) 175 mcg Tablet Take 175 mcg by mouth daily. 12/16/2014 omeprazole (PRILOSEC) 20 mg Capsule, Delayed Release(E.C.) Take 20 mg by mouth daily. 08/09/2014 hydrochlorothiazide (HYDRODIURIL) 25 mg Tablet Take 25 mg by mouth daily. 11/14/2016 pravastatin (PRAVACHOL) 10 mg Tablet Take 10 mg by mouth daily. 11/14/2016 documented as of this encounter Plan of Treatment Scheduled Orders Name Type Priority Associated Diagnoses Orde r Schedule CBC (with Diff) Lab Routine Breast cancer, unspecified laterality 1 Occurrences starting 07/01/2014 until 07/01/2014 documented as of this encounter Procedures Procedure Name Priority Date/Time Associated Diagnosis Comments LAB SCAN 07/26/2014 12:00 AM EDT LAB SCAN 07/19/2014 12:00 AM EDT HEMOGRAM Routine 07/01/2014 12:28 PM EDT Malignant neoplasm of left female breast DIFFERENTIAL, AUTOMATED Routine 07/01/2014 12:28 PM EDT Malignant neoplasm of left female breast CBC (WITH DIFF) Routine 07/01/2014 12:28 PM EDT Malignant neoplasm of left female breast (BREAST CANCER) COMPREHENSIVE METABOLIC PANEL Routine 07/01/2014 12:28 PM EDT Breast cancer, unspecified laterality documented in this encounter Results * SCAN DOC: LAB (07/26/2014 12:00 AM EDT) Scanning Provider MEDIA MGR SCAN EXT O RDR/RSLT * SCAN DOC: LAB (07/19/2014 12:00 AM EDT) Scanning Provider MEDIA MGR SCAN EXT O RDR/RSLT * (ABNORMAL) Differential, Automated (07/01/2014 12:28 PM EDT) Neutrophil % 89.1 % CERNER MILLENNIUM Neutrophil Absolute 2.61 1.50 - 6.30 x10(3)/mc L CERNER MILLENNIUM Lymph % 9.2 % CERNER MILLENNIUM Lymphocytes Abs 0.3(L) 1.0 - 3.6 x10(3)/mc L CERNER MILLENNIUM Monocyte % 1.4 % CERNER MILLENNIUM Monocyte Abs 0.0(L) 0.2 - 1.0 x10(3)/mc L CERNER MILLENNIUM Eos % 0.0 % CERNER MILLENNIUM Eosinophils Abs 0.0 0.0 - 0.5 x10(3)/mc L CERNER MILLENNIUM Basophil % 0.0 % CERNER MILLENNIUM Baso Absolute 0.0 0.0 - 0.2 x10(3)/mc L CERNER MILLENNIUM Immature Gran % 0.30 % CERN ER MILLENNIUM Comment: Immature granulocytes(IG's)percentage and absolute count will include metamyelocytes, myelocytes, and promyelocytes. Blood smears from CBCs yielding IG's will be scanned manually for concordance. If this scan disagrees with the automated IG or if promyelocytes are noted, a manual differential will be performed. Immature Gran Absolute 0.01 0.00 - 0.05 x10(3)/mc L CERNER MILLENNIUM Blood specimen (specimen) 07/01/2014 12:28 PM EDT 07/01/2014 12:43 PM EDT Narrative Resulting Agency Comment Spec In Lab Kirill Saavedra MD HEMATOLOGY ORDERABLE S CERNER MILLENNIUM * (ABNORMAL) Hemogram (07/01/2014 12:28 PM EDT) White Blood Cell 2.9(L) 4.0 - 10.0 x10(3)/mc L CERNER MILLENNIUM Red Blood Cell 4.44 3.93 - 5.22 x10(6)/mc L CERNER MILLENNIUM Hemoglobin 13.9 11.2 - 15.7 gm/dL CERNER MILLENNIUM Hematocrit 39.4 34.0 - 45.0 % CERNER MILLENNIUM Mean Cell Volume 88.7 79.0 - 94.0 fL CERNER MILLENNIUM Mean Cell Hemoglobin 31.3 26.6 - 32.2 pg CERNER MILLENNIUM Mean Cell Hemoglobin Concentration 35.3 32.0 - 36.5 gm/dL CERNER MILLENNIUM Platelet 350 145 - 370 x10(3)/mc L CERNER MILLENNIUM RDW Standard Deviation 48.8(H) 35.0 - 46.0 fL CERNER MILLENNIUM RDW coefficient of variation 15.1(H) 10.9 - 14.4 % CERNER MILLENNIUM Mean Platelet Volume 9.6 9.0 - 12.0 fL CERNER MILLENNIUM Blood specimen (specimen) 07/01/2014 12:28 PM EDT 07/01/2014 12:43 PM EDT Narrative Resulting Agency Comment Spec In Lab Kirill Saavedra MD HEMATOLOGY ORDERABLE S CERNER MILLENNIUM * (ABNORMAL) Comprehensive metabolic panel (non-fasting) (07/01/2014 12:28 PM EDT) [facility] Signature Glucose 175 60 - 199 mg/dL CERNER MILLENNIUM Comment:Diabetes: >=200 mg/d L plus symptoms Blood Urea Nitrogen 15 8 - 18 mg/dL CERNER MILLENNIUM Creatinine 0.80 0.70 - 1.20 mg/dL CERNER MILLENNIUM Comment: Please note that the pediatric reference intervals supplied above were not validated at [facility]. Results from pediatric patients should be interpreted in conjunction to the patient's age, height and muscle mass. Sodium 138 135 - 145 mmol/L CERNER MILLENNIUM Potassium 3.8 3.5 - 5.0 mmol/L CERNER MILLENNIUM Comment: Please note: ??Patients with WBC >100,000 may have falsely elevated Potassium levels. ??For accurate Potassium quantification in these patients send serum separator tube (gold top) for subsequent determinations. ??Contact the Clinical Chemistry Laboratory if there are any questions. Chloride 97(L) 98 - 107 mmol/L CERNER MILLENNIUM Carbon Dioxide 23 22 - 31 mmol/L CERNER MILLENNIUM Anion Gap 18(H) 5 - 15 mmol/L CERNER MILLENNIUM Calcium 9.8 8.5 - 10.5 mg/dL CERNER MILLENNIUM Protein, Total 7.9 6.1 - 8.0 gm/dL CERNER MILLENNIUM Albumin 4.6 3.2 - 5.2 gm/dL CERNER MILLENNIUM Aspartate Aminotransferase 20 0 - 30 unit/L CERNER MILLENNIUM Alanine Aminotransferase 23 0 - 30 unit/L CERNER MILLENNIUM Alkaline Phosphatase 85 40 - 104 unit/L CERNER MILLENNIUM Bilirubin, Total 0.6 0.2 - 1.3 mg/dL CERNER MILLENNIUM Bilirubin, [...] the following links into your internet browser. [email or web address] Blood specimen (specimen) 07/01/2014 12:28 PM EDT 07/01/2014 12:43 PM EDT Narrative Resulting Agency Comment Spec In Lab Kirill Saavedra MD [facility]ABLES [facility] documented in this encounter Visit Diagnoses Diagnosis Malignant neoplasm of left female breast (BREAST CANCER) Malignant neoplasm of breast (female), unspecified site Breast cancer, unspecified laterality documented in this encounter Care Teams Scrap Metal Processing Worker Relationship Specialty Start Date End Date Ag Trent MD [address] [place] [address] PCP - General 02/02/14 documented as of this encounter
--- OUTSIDE RECORDS SUMMARY | 2024-02-17 15:58 | XMS_ITS | Encounter Summary ---
Author Organization [facility] Address [facility] [address] Care Team Providers Care Dress Cap Maker Name Role Phone Ag Trent MD Primary Care Provider [phone] Encounter Details Date Type Department Care Team (Latest Contact Info) Description 08/23/2014 8:36 AM EDT - 08/23/2014 11:59 PM EDT Hospital [place] [id number] CLIN[address], [facility] [facility] MD [facility] DR HEMATOLOGY [place] [address] Malignant neoplasm of left female breast (BREAST [...] Sign Reading Time Taken Comments Blood Pressure 123/61 08/23/2014 8:50 AM EDT Pulse 76 08/23/2014 8:50 AM EDT Temperature 36.9 ??C (98.4 ??F) 08/23/2014 8:50 AM ED T Respiratory Rate 16 08/23/2014 8:50 AM EDT Oxygen Saturation 97% 08/23/2014 8:50 AM EDT Inhaled Oxygen Concentration - - Weight - - Height - - Body Mass Index - - documented in this encounter Discharge Instructions * Discharge Instructions* Brittny Suggs RN - 08/23/2014 10:36 AM EDT Images from the original note were not included. [facility] Vascular and Interventional Radiology Discharge Instructions for your Chest Port Removal Activity: ??? Relax for the next 24 hours Diet: ??? Drink plenty of fluids. ??? Resume your regular diet Bandage: There is a sterile dressing consisting of small gauze with a clear dressing (Tegaderm or IV 3000). This dressing should be left in place for 48 hours. If the clear dressing becomes loose youshould place tape over the edges to secure it in place. No tub baths, swimming or whirlpools for 1 week. No showering for 48 hours. Note: If you have steri-strips beneath your dressing, simply allow them to fall off. Do not peel them off. There may be Locke[place]-parikh (skin glue) also, allow this to flake off. Do not pick this off. Bathing: Do not take a shower until 48 hours after your port is removed; after this time you may shower with the dressing in place, then remove it and pat your skin dry. After 48 hours, we recommend that you cover the area with THE AQUA GUARD PROVIDED for 1 week while showering, facing away from the shower stream. You may use a bandaid to cover the site after the 48 hours are up if there is any drainage. No tub baths, whirlpools or swimming for one week following port removal. When to call your healthcare provider: ??? If you notice bleeding from the incision on your chest, you should lie flat and apply firm pressure over the site for 10-15 minutes, keeping the site covered and call your doctor. If you are still bleeding after 10-15 minutes, reapply pressure, and have someone drive you to the nearest Emergency Department, or call 911. ??? If you develop pain, redness, drainage or swelling at or around chest incision site. ??? If you develop a fever equal to or greater than 101 degrees Fahrenheit. When to call the Interventional Radiology Department: Please call with any questions or concerns. If it is during regular office hours, please call [phone]. If it is after regular office hours, or on weekends or holidays, please call [phone] and ask to speak to the Business Systems Manager national secretary for Interventional Radiology. You have received medication during your procedure to help lesson anxiety and keep you comfortable.These medications affect judgement and reaction time. We recommend that you do not drive, operate equipment, sign any important documents, or smoke unattended for 24 hours following your procedure. Because of the sedation, be careful on stairs, as you may be unsteady on your feet. You may resume your regular diet as tolerated. IV site -- slight redness, or tenderness is normal, you can use a warm compress. If tenderness and redness increases or foul drainage occurs, please contact your M. D. 05/04/14 documented in this encounter Medications at Time of Discharge Medication Sig Dispensed Refills Start Date End Date omeprazole (PRILOSEC) 20 mg Capsule, Delayed Release(E.C.)Indication s:Malignant neoplasm of left female breast Take 1 capsule by mouth daily. 90 capsule 1 08/09/2014 aspirin 81 mg Tablet, Delayed Release (E.C.) Take 81 mg by mouth daily. LORazepam (ATIVAN) 0.5 mg TabletIndications:Isidrojohn brewer neoplasm of left female breast Take 1 tablet by mouth every 6 hours as needed for Anxiety (nausea). 30 tablet 0 08/09/2014 01/14/2017 dexamethasone (DECADRON) 4 mg Tablet Take 4 mg by mouth as needed. 11/08/2014 magnesium oxide (MAG-OX) 400 mg TabletIndications:Breas t cancer, left breast Take 1 tablet by mouth 2 times daily. 60 tablet 1 07/05/2014 11/08/2014 potassium chloride (K-DUR/KLOR-CON) 20 mEq Tab Sust.Rel. Particle/CrystalIndicat ions:Malignant neoplasm of left female breast Take 1 tablet by mouth 2 times daily. 60 tablet 1 07/05/2014 11/08/2014 bisacodyl (DULCOLAX) 5 mg Tablet, Delayed Release (E.C.) Take 5 mg by mouth daily as needed for Constipation. 05/16/2015 polyethylene glycol (MIRALAX) 17 gram Powder in Packet Take 17 g by mouth 3 times daily as needed. 03/25/2019 prochlorperazine (COMPAZINE) 10 mg TabletIndications:Nithin brewer neoplasm of left female breast Take 1 tablet by mouth every 6 hours as needed for Nausea. 30 tablet 3 04/12/2014 10/04/2014 ERGOCALCIFEROL, VITAMIN D2, (VITAMIN D ORAL) Take [...] daily. 11/14/2016 documented as of this encounter Progress Notes * Brittny Vaughn PA - 08/19/2014 10:53 AM EDT PRE-PROCEDURE VIR NOTE Date of : 1950 Age: 63 y.o. PCP: AG TRENT MD Referring Physician (if different): Keri Indication: No longer needed Planned Procedure: Single lumen chest port removal Chief Complaint/Diagnosis: Narda Frazier is a 63 y.o. female with left BCa s/p partial mastectomy andaxillary node dissection. She underwent placement of right IJ single lumen chest port (CT POWER PORT) on 03/18/14. She has completed therapy and it is no longer needed. Pertinent Past Medical/Surgical History: Patient Active Problem List Diagnosis Code ??? Malignant neoplasm of left female breast (BREAST CANCER) 174.9 ??? Other specified prophylactic or treatment measure V07.8 ??? Breast cancer, left breast 174.9 ??? Mucositis 528.00 Allergies Allergen Reactions ??? Coumadin [Warfarin] Severe bleeding ??? Oxycodone Unable to tolerate opiates Current Outpatient Prescriptions on File Prior to Encounter Medication Sig Dispense Refill ??? omeprazole (PRILOSEC) 20 mg Capsule, Delayed Release(E.C.) Take 1 capsule by mouth daily. 90 capsule 1 ??? LORazepam (ATIVAN) 0.5 mg Tablet Take 1 tablet by mouth every 6 hours as needed for Anxiety (nausea). 30 tablet 0 ??? dexamethasone (DECADRON) 4 mg Tablet Take 4 mg by mouth as needed. ??? magnesium oxide (MAG-OX) 400 mg Tablet Take 1 tablet by mouth 2 times daily. 60 tablet 1 ??? potassium chloride (K-DUR/KLOR-CON) 20 mEq Tab Sust.Rel. Particle/Crystal Take 1 tablet by mouth 2 times daily. 60 tablet 1 ??? bisacodyl (DULCOLAX) 5 mg Tablet, Delayed Release (E.C.) Take 5 mg by mouth daily as needed forConstipation. ??? polyethylene glycol (MIRALAX) 17 gram Powder in Packet Take 17 g by mouth 3 times daily as needed. ??? prochlorperazine (COMPAZINE) 10 mg Tablet Take 1 tablet by mouth every 6 hours as needed for Nausea. 30 tablet 3 ??? ERGOCALCIFEROL, VITAMIN D2, (VITAMIN D ORAL) Take 1 tablet by mouth. ??? ondansetron (ZOFRAN) 8 mg Tablet Take 1 tablet by mouth every 8 hours as needed for Nausea. 60 tablet 1 ??? oxyCODONE (ROXICODONE) 5 mg Tablet Take 1 tablet by mouth every 4 hours as needed for Pain. 25 tablet 0 ??? levothyroxine (SYNTHROID) 175 mcg Tablet Take 175 mcg by mouth daily. ??? hydrochlorothiazide (HYDRODIURIL) 25 mg Tablet Take 25 mg by mouth daily. ??? pravastatin (PRAVACHOL) 10 mg Tablet Take 10 mg by mouth daily. ??? aspirin 81 mg Tablet, Delayed Release (E.C.) Take 81 mg by mouth daily. No current facility-administered medications on file prior to encounter. Pertinent ROS: as per HPI Pertinent Family History: non contributory Social History: n/a Labs: Lab Results Component Value Date WBC 2.9* 07/01/2014 HCT 39.4 07/01/2014 PLATELET 350 07/01/2014 BUN 15 07/01/2014 Lab Results Component Value Date ALKPHOS 85 07/01/2014 AST 20 07/01/2014 ALBUMIN 4.6 07/01/2014 BILIDIR 0.1 07/01/2014 BILITOT 0.6 07/01/2014 ALT 23 07/01/2014 Physical Exam: pending ASA: Mallampati Class: Assessment / Plan: Single lumen chest port removal Medications to discontinue: none Prophylactic antibiotic: Ancef 1 gram IV Planned access site / position: supine * Josefina Glass RN - 08/18/2014 3:18 PM EDT [facility] NUR[facility] DATABASE Name: NARDA FRAZIER Date of : 1950 AGE 63 y.o. Address: [address] [place] [phone] (home) Mobile: No relevant phone numbers on file. Referring Provider: Kirill Saavedra REASON FOR VISIT: Order Questions Question Answer Comment Where will study be performed? [facility] Is the patient on anticoagulant / anitplatelet therapy ? No Reason for exam and clinical history: Removal of mediport - completion of chemotherapy for breast cancer Exam/Procedure requested: Removal of mediport (Assessment/plan from provider's note, bottom of page) Copy/paste from provider's note (for CT's) Allergies Allergen Reactions ??? Coumadin [Warfarin] Severe bleeding ??? Oxycodone Unable to tolerate opiates Pertinent PMH: Patient Active Problem List Diagnosis Code ??? Malignant neoplasm of left female breast (BREAST CANCER) 174.9 ??? Other specified prophylactic or treatment measure V07.8 ??? Breast cancer, left breast 174.9 ??? Mucositis 528.00 Pertinent PSH: Past Surgical History Procedure Laterality Date ??? Mastectomy, partial Left 02/22/2014 MASTECTOMY PARTIAL performed by Ibrahima Cohen MD at [facility] MAIN OR ??? Bx/remv, lymph node, deep axill Left 02/22/2014 BIOPSY OR EXCISION OF LYMPH NODE(S), OPEN, DEEP AXILLARY NODE(S) performed by Ibrahima Cohen MD at [facility] MAIN OR ??? Identify sentinel node Left 02/22/2014 SENTINEL NODE INJECTION performed by Ibrahima Cohen MD at [facility] MAIN OR ??? Left 02/22/2014 MODIFIER SENTINEL NODE EXCISION performed by Ibrahima Cohen MD at [facility] MAIN OR Date/Procedure Comments: 03/18/14 Mediport placement Ancef 1gm IV, Valium 10mg PO. Pt refused IV sedation medications. Tolerated well. 08/23/14 mediport removal Ancef 1 gm iv Laboratory Results: No results found for: INR No components found for: PT/PTT Lab Results Component Value Date CREATININE 0.80 07/01/2014 Lab Results Component Value Date K 3.8 07/01/2014 Lab Results Component Value Date PLATELET 350 07/01/2014 Medications: Prior to Admission medications Medication Sig Start Date End Date Taking? Authorizing Provider omeprazole (PRILOSEC) 20 mg Capsule, Delayed Release(E.C.) Take 1 capsule by mouth daily. 08/09/14 Kirill Saavedra MD LORazepam (ATIVAN) 0.5 mg Tablet Take 1 tablet by mouth every 6 hours as needed for Anxiety (nausea). 08/09/14 Kirill Saavedra MD dexamethasone (DECADRON) 4 mg Tablet Take 4 mg by mouth as needed. PROVIDER, HISTORICAL magnesium oxide (MAG-OX) 400 mg Tablet Take 1 tablet by mouth 2 times daily. 07/05/14 Kirill Saavedra MD potassium chloride (K-DUR/KLOR-CON) 20 mEq Tab Sust.Rel. Particle/Crystal Take 1 tablet by mouth 2 times daily. 07/05/14 Kirill Saavedra MD bisacodyl (DULCOLAX) 5 mg Tablet, Delayed Release (E.C.) Take 5 mg by mouth daily as needed for Constipation. PROVIDER, HISTORICAL polyethylene glycol (MIRALAX) 17 gram Powder in Packet Take 17 g by mouth 3 times daily as needed. PROVIDER, HISTORICAL prochlorperazine (COMPAZINE) 10 mg Tablet Take 1 tablet by mouth every 6 hours as needed for Nausea. 04/12/14 Kirill Saavedra MD ERGOCALCIFEROL, VITAMIN D2, (VITAMIN D ORAL) Take 1 tablet by mouth. PROVIDER, HISTORICAL ondansetron (ZOFRAN) 8 mg Tablet Take 1 tablet by mouth every 8 hours as needed for Nausea. 03/08/14Kirill Saavedra MD oxyCODONE (ROXICODONE) 5 mg Tablet Take 1 tablet by mouth every 4 hours as needed for Pain. 02/22/14 Vijay Padron MD levothyroxine (SYNTHROID) 175 mcg Tablet Take 175 mcg by mouth daily. PROVIDER, HISTORICAL hydrochlorothiazide (HYDRODIURIL) 25 mg Tablet Take 25 mg by mouth daily. PROVIDER, HISTORICAL pravastatin (PRAVACHOL) 10 mg Tablet Take 10 mg by mouth daily. PROVIDER, HISTORICAL aspirin 81 mg Tablet, Delayed Release (E.C.) Take 81 mg by mouth daily. PROVIDER, HISTORICAL ++++ FOR OUTPATIENT SCAN'S: I have informed this patient that they require a helper driver to be present and in the building to drive them home after this procedure. In the absence of a helper driver, IR will not be able to perform this procedure and will need to reschedule. Pt verbalized understanding of these i nstructions during the pre-procedure education via phone. (initials) documented in this encounter Procedure Notes * Brittny Vaughn PA - 08/23/2014 10:30 AM EDTProcedure(s): ABDOMINAL PARACENTESIS (DX OR THERAPEUTIC); W/ IMAGING GUIDANCE VIR PROCEDURE NOTE Procedure: Single lumen chest port removal. Indication for Procedure: Completion of chemotherapy. Intervention: Informed consent obtained. A moment of truth was performed and the patient and procedure correctly identified. R nurse performed continuous monitoring of pulse, blood pressure and oxygen saturation during the procedure. Maximal sterile barrier technique prep and drape. Preprocedure IV antibiotics administered. Skin anesthetized with 1% lidocaine as well as bupivacaine with epinephrine. Blunt and sharp dissection used to remove, intact, single lumen port. Wound copiously irrigated. The pocket was closed using 2-0 vicryl deep interrupted. Skin closed with indermil. Meds: 1 gm IV ancef 10 CC Lidocaine 1% used EBL: none Complications: None. Procedure performed by: Brittny Vaughn PA-C Attending: Dr. Weaver documented in this encounter Plan of Treatment Not on file documented as of this encounter Procedures Procedure Name Priority Date/Time Associated Diagnosis Comments LAB SCAN 11/07/2014 12:00 AM EDT IR MEDIPORT REMOVAL Routine 08/23/2014 1 0:36 AM EDT Malignant neoplasm of left female breast (BREAST CANCER) documented in this encounter Results * SCAN DOC: LAB (11/07/2014 12:00 AM EDT) Scanning Provider MEDIA MGR SCAN EXT O RDR/RSLT * IR Removal of Mediport (08/23/2014 10:36 AM EDT) Anatomical Region Laterality Modality X-Ray Angiograph y 08/23/2014 10:3 6 AM EDT Narrative 08/23/2014 1:46 PM EDT ??Procedures ??1. ABDOMINAL PARACENTESIS (DX OR THERAPEUTIC); W/ IMAGING GUIDANCE [QRD2309 (CPT?)] ??Expand All Collapse All VIR PROCEDURE NOTE Procedure: Single lumen chest port removal. Indication for Procedure: Completion of chemotherapy. Intervention: Informed consent obtained. A moment of truth was performed and the patient and procedure correctly identified. R nurse performed continuous monitoring of pulse, blood pressure and oxygen saturation during the procedure. Maximal sterile barrier technique prep and drape. Preprocedure IV antibiotics administered. Skin anesthetized with 1% lidocaine as well as bupivacaine with epinephrine. Blunt and sharp dissection used to remove, intact, single lumen port. Wound copiously irrigated. The pocket was closed using 2-0 vicryl deep interrupted. Skin closed with indermil. Meds: 1 gm IV ancef 10 CC Lidocaine 1% used EBL: none Complications: None. Procedure performed by: ??Brittny Vaughn PA-C Attending: Dr. Weaver Procedure Note Santi Weaver MD - 08/23/2014 Procedures 1. ABDOMINAL PARACENTESIS (DX OR THERAPEUTIC); W/ IMAGING GUIDANCE[QDI2000 (CPT?)] Expand All Collapse All VIR PROCEDURE NOTE Procedure: Single lumen chest port removal. Indication for Procedure: Completion of chemotherapy. Intervention: Informed consent obtained. A moment of truth was performedand the patient and procedure correctly identified. R nurse performed continuous monitoring of pulse, blood pressure and oxygen saturation during theprocedure. Maximal sterile barrier technique prep and drape. Preprocedure IV antibiotics administered. Skin anesthetized with 1%lidocaine as well as bupivacaine with epinephrine. Blunt and sharp dissection used toremove, intact, single lumen port. Wound copiously irrigated. The pocket wasclosed using 2-0 vicryl deep interrupted. Skin closed with indermil. Meds: 1 gm IV ancef 10 CC Lidocaine 1% used EBL: none Complications: None. Procedure performed by: Brittny Vaughn PA-C Attending: Dr. Weaver Kirill Saavedra MD IMG IR ORDERABLES documented in this encounter Visit Diagnoses Diagnosis Malignant neoplasm of left female breast (BREAST CANCER) Malignant neoplasm of breast (female), unspecified site documented in this encounter Administered Medications Inactive Administered Medications - up to 3 most recent administrations Medication Order MAR Action Action Date Dose Rate Site ceFAZolin (ANCEF) 1 gram/50 mL 1 dose, Starting on Fri08/23/14 at 0914, Until Fri08/23/14 at 0945, JOSEFINA GLASS: cabinet override ceFAZolin (ANCEF) 1g in dextrose 5% 50mL 1,000 mg (1 g), Intravenous, ONCE, 1 dose, On Fri08/23/14 at 0930, Administer over 30 Minutes, Redose after 4 hours., Day of Surgery (Day of Procedure), Indication for (Active or Suspected): Prophylaxis Given 08/23/2014 9:15 AM EDT 1,000 mg 100 mL/hr documented in this encounter Care Teams Dress Cap Maker Relationship Specialty Start Date End Date Ag Trent MD [address] [place] [address] PCP - General 02/02/14 documented as of this encounter
--- OUTSIDE RECORDS SUMMARY | 2024-02-17 15:58 | XMS_ITS | Encounter Summary ---
Author Organization [facility] Address [facility] [place] [address] [place] [address] Care Team Providers Care Binding Bench Worker Name Role Phone Ag Trent MD Primary Care Provider [phone] Reason for Visit * Reason Comments Follow-up Encounter Details Date Type Department Care Team (Late st Contact Info) Description 07/05/2014 10:00 AM EDT Follow-Up Hematology Oncology at [address] [phone] Kirill Saavedra MD [facility] DR HEMATOLOGY [place] [address] Malignant neoplasm of left female breast (BREAST CANCER); Hypomagnesemia; Hypokalemia; Nausea alone Discharge Disposition: Home Social History Tobacco Use [...] Sign Reading Time Taken Comments Blood Pressure 133/72 07/05/2014 10:06 AM EDT Pulse 72 07/05/2014 10:06 AM EDT Temperature 37 ??C (98.6 ??F) 07/05/2014 10:06 AM EDT Respiratory Rate - - Oxygen Saturation 98% 07/05/2014 10:06 AM EDT Inhaled Oxygen Concentration - - Weight 83 kg (183 lb) 07/05/2014 10:06 AM EDT Height 161 cm (5' 3.39) 07/05/2014 10:06 AM EDT Body Mass Index 32.02 07/05/2014 10:06 AM EDT documented in this encounter Progress Notes * Kirill Saavedra MD - 07/05/2014 11:09 AM EDT Diagnosis: 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 Subjective:I still feel nauseated HPI: Ms. Narda Rivera is 63 y.o. female Referred to us for consultation by Dr. Cohen on new diagnosis of breast cancer. She initially presenteda mass in her upper outer left breast with calcificationson a screening mammogram in December 2013.The main mass wasbiopsied showing infiltrating ductal and lobular carcinoma, ER positive, [id number]. MRI was then performed that showed the mass with multiple small satellites around it. Mrs. Rivera underwent left partial mastectomy and sentinel lymph nodebiopsy on February 23, 2014. Postoperative course was uneventful. Interval history: Ms. Rivera is in clinic today for followup appointment and 7-th dose of weekly Taxol. She feels nauseated at times and used Zofran and dexamethasone once a day. She denies any numbness and tingling in extremities or new pain. Mrs. Rivera continue to exercises regularly PMH: no interval changes Patient Active Problem [...] palpitations and leg swelling. Gastrointestinal: positive for nausea, negative for abdominal pain, diarrhea and abdominal distention. Genitourinary: Negative for dysuria and difficulty urinating. Musculoskeletal: Negative. Skin: measurable arms Neurological: Negative. Hematological: Negative for adenopathy. 10 [...] or inguinal areas. Neurologic: Normal Vitals BP 133/72 Pulse 72 Temp(Src) 37 ??C (98.6 ??F) (Oral) Ht 161 cm (5' 3.39) Wt 83.008kg (183 lb) BMI 32.02 kg/m2 SpO2 98% Karnofsky score is 90 [...] count: Score = 3 Total Khalif Score: Bishop Grade III: 8-9 points DCIS: Ductal Carcinoma [...] slide reconstruction) MICROCALCIFICATIONS: Present in nonneoplastic tissue ER/MI/HER2: ER/MI/Her2 Comment: Please see prior biopsy [id number]. HER2 FISH will be repeated on this [...] cancer cells with immunostaining) Stain Intensity: Strong MI immunoreactivity: Positive (11-90% cancer cells with immunostaining) Stain Intensity: Strong NEGATIVE FOR HER2/DEL AMPLIFICATION Labs: Calcium 9.0, BUN 16, creatinine 0.8, TB 0.39, alkaline phosphatase 71, sodium 140, potassium 2.9, magnesium 1.5, AST 16, ALT 28, WBC 4.62, hemoglobin 12.9, platelet count 391, ANC 2.17. Imagin03/15/14, CT scan of chest, abdomen and pelvis: No evidence of abdominal pelvic metastatic disease.No evidence of thoracic metastatic disease. 8 cm fluid collection in the left breast. This likely reflects postsurgical change. 03/15/14 echocardiogram: normal biventricular size and systolic function; estimated LVEF 65%. 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 Will proceed with 7-th dose today 2. Hypokalemia/hypomagnesimia: potassium 2.9 today, Magnesium 1.5. 520 mEq IV today Magnesium sulfate 1 gm today, we will double otassium and magnesium PO supplementation. Potassium 20 mEq twice a day and magnesium oxide 400 mg twice a day 3. Anxiety:controlled on lorazepam 4. Mucositis: Carafate and/or miracle mouthwash PRN 5. Rash: papular on low arms, grade 1 Plan: 1. Weekly Taxol today. Kcl amd Mg sulfate IV today 2. Mg oxide 400 mg potassium 20 mEQ BID 3. Next visit in 1 weeks with CBC, CMP, magnesium and weekly Taxol Mrs. Rivera is accompanied [...] Procedure Name Priority Date/Time Associated Diagnosis Comments CHEMOTHERAPY SCAN 07/05/2014 12:00 AM EDT documented in this encounter Results * SCAN DOC: CHEMOTHERAPY (07/05/2014 12:00 AM EDT) Scanning Provider MEDIA MGR SCAN EXT O RDR/RSLT documented in this encounter Visit Diagnoses Diagnosis Malignant neoplasm of left female breast (BREAST CANCER) Malignant neoplasm of breast (female), unspecified site Hypomagnesemia Disorders of magnesium metabolism Hypokalemia Hypopotassemia Nausea alone documented in this encounter Care Teams Binding Bench Worker Relationship Specialty Start Date End Date Ag Trent MD [address] [place] [id number] PCP - General 02/02/14 documented as of this encounter
--- OUTSIDE RECORDS SUMMARY | 2024-02-17 15:58 | XMS_ITS | Encounter Summary ---
Author Organization [facility] Address [facility] [place] [address] Care Team Providers Care Jewelry Casting Model Maker Name Role Phone Ag Trent MD Primary Care Provider [phone] Encounter Details Date Type Department Care Team (Late st Contact Info) Description 09/07/2014 Notes Only [place] [address] Kirill Saavedra MD [facility] DR HEMATOLOGY AND ONCOLOGY [place] [id number] Social History Tobacco Use Types Packs/Day Years [...] Progress Notes * Yulissa Mcguire RN - 09/07/2014 10:07 AM EDT Research Study Note; Week 23 phone call 09/07/14 Control [place] [id number]: Effects of an Exercise Intervention on Physical Activity during Chemotherapy for Patients with Early Stage Breast Cancer PC to Narda to obtain exercise log data from 08/30/14 - 09/05/14. Narda reported that she exercised for73 min mostly walking this week (26 min hula hoop). Narda stated she has a lung infection which hasmade her very tired. She is on an antibiotic. She is also receiving radiation tx daily. Her daily average steps were 3,552 for the week. Narda still has concerns about the accuracy of the pedometers.She has been given three different once. We discussed the placement again and the way she is describing how she wears it sounds correct. She will continue to wear two pedometers and try to determine which one is most accurate. documented in this encounter Plan of Treatment Not on file documented as of this encounter Visit Diagnoses Not on filedocumented in this encounter Care Teams Jewelry Casting Model Maker Relationship Specialty Start Date End Date Ag Trent MD [address] [place] [address] PCP - General 02/02/14 documented as of this encounter
--- OUTSIDE RECORDS SUMMARY | 2024-02-17 15:58 | XMS_ITS | Encounter Summary ---
Author Organization [place] [address] Care Team Providers Care Game Master Name Role Phone Ag Trent MD Primary Care Provider [phone] Reason for Visit * Reason Onset Date Comments New Medication Request 06/21/2014 Encounter Details Date Type Department Care Team (Late st Contact Info) Description 06/21/2014 Telephone Hematology Oncology at [address] [address] Ashley Elena, RN New Medication Request Social History Tobacco Use Types Packs/Day Years [...] encounter Miscellaneous Notes * Telephone Encounter - Ashley Elena RN - 06/21/2014 10:39 AM EDT Phone call to patient's mail order pharmacy to follow up on status of magnesium oxide prescription that patient was given on 06/14/14. Confirmed that medication was mailed to patient on 06/17/14, so should be receiving that any day now. Will updated Narda with this information. documented in this encounter Plan of Treatment Not on file documented as of this encounter Visit Diagnoses Not on filedocumented in this encounter Care Teams Game Master Relationship Specialty Start Date End Date Ag Trent MD [address] [place] [address] PCP - General 02/02/14 documented as of this encounter
--- OUTSIDE RECORDS SUMMARY | 2024-02-17 15:58 | XMS_ITS | Encounter Summary ---
Author Organization [facility] Address [facility] [place] [address] Care Team Providers Care Corn Breeder Name Role Phone Ag Trent MD Primary Care Provider [phone] Reason for Visit * Reason Comments Other Encounter Details Date Type Department Care Team (Late st Contact Info) Description 08/31/2014 Telephone Radiation Oncology at [address] [address] Evette Waddell, RN Social History [...] encounter Miscellaneous Notes * Telephone Encounter - Evette Yu RN - 08/31/2014 8:38 AM EDT Radiation Oncology Nurse Phone Note ----- Message from Josie Rosenberg sent at 08/31/2014 8:18 AM EDT ----- Regarding: call back Pt called, not feeling well, please call back. Has radiation this afternoon. 8:27 AM phone call to patient. She states that she is very tired, not much energy and that she ishaving some chest discomfort in her lungs and a cough This started Friday ( day before she started radiation treatments) and it seems to have progressively become worse. She grades her pain a 2 or 3/10, kind of sharp, there all the time and worse when I take a deep breath. She denies feeling feverish ( she doesn't have a thermometer) and she also denies couging up any sputum. She coughed a couple times while on the phone and it has a dry bark-likesound to it. She states she has some cephalexin 500mg tabs that Dr Saavedra prescribed for her on 05/31/14. He prescribed her 28 pills and she only took 8 of them. She thinks he prescribed them to her for mouth sores. She inquired if she should start taking these. Plan: I advised that she call her PCP, Dr Trent's office, and ask to be seen today for this chest pain and coughing. I advised that she bring the bottle of cephalexin with her to the appointment in case they are contemplating starting her on an antibiotic, but to definitely not take it without first getting the order of her physician. I asked that she call us if she needs to have her radiation treatment moved to accommodate her PCP appt. She agreed with this plan. She called back shortly afterwards and states that she will see a provider today at 3:15. I arranged with radiation therapists for her to come to treatment today at 11:30 documented in this encounter Plan of Treatment Not on file documented as of this encounter Visit Diagnoses Not on filedocumented in this encounter Care Teams Corn Breeder Relationship Specialty Start Date End Date Ag Trent MD [address] [place] [address] PCP - General 02/02/14 documented as of this encounter
--- OUTSIDE RECORDS SUMMARY | 2024-02-17 15:58 | XMS_ITS | Encounter Summary ---
Author Organization [facility] Address [facility] [place] [address] Care Team Providers Care Flatwork Ironer Name Role Phone Ag Trent MD Primary Care Provider [phone] Encounter Details Date Type Department Care Team (Late st Contact Info) Description 08/04/2014 Notes Only Hematology [place] [address] Kirill Saavedra MD [facility] DR [place]ATOLOG[place] [address] Social History Tobacco Use Types Packs/Day Years [...] Progress Notes * Yulissa Mcguire RN - 08/04/2014 9:18 AM EDT Research Study Note; Week 18 phone call 08/03/14 Control arm A [id number]: Effects of an Exercise Intervention on Physical Activity during Chemotherapy for Patients with Early Stage Breast Cancer Call to Narda to obtain exercise log data from 07/26/14 - 08/01/14. Narda reported that she had exercised for a total of 98 min. She had danced, biked and used her hula hoop. When she was younger she had won [employer] competitions and she feels this was a really good exercise. However, it did not add to her steps. Her daily average steps was 2,825. Her exertion varied from moderate to brisk and feeling scale from fairly bad to neutral to fairly good. Narda is looking forward to be done with her chemo (one more tx left). She agrees to continue on study. documented in this encounter Plan of Treatment Not on file documented as of this encounter Visit Diagnoses Not on filedocumented in this encounter Care Teams Flatwork Ironer Relationship Specialty Start Date End Date Ag Trent MD [address] [place] [address] PCP - General 02/02/14 documented as of this encounter
--- OUTSIDE RECORDS SUMMARY | 2024-02-17 15:58 | XMS_ITS | Encounter Summary ---
Author Organization [facility] Address [facility] [place] [address] Care Team Providers Care Owner Manager Name Role Phone Ag Trent MD Primary Care Provider [phone] Reason for Visit * Reason Comments Chemotherapy Taxol Encounter Details Date Type Department Care Team (Jonathan st Contact Info) Description 07/05/2014 11:00 AM EDT Office Visit Hematology Oncology at [address] [phone] CLIN[address], DR [facility] HEM/ONC Kirill Saavedra MD [facility] HEMATOLOGY [place] [address] Breast cancer, left breast; Other specified prophylactic [...] as of this encounter Progress Notes * Iman Liang - 07/05/2014 12:02 PM EDT INFUSION THERAPY ADMINISTRATION NOTES DIAGNOSIS: Breast Cancer CYCLE #: 3 Day 1 REASON FOR VISIT: Chemotherapy SUBJECTIVE Narda offers no complaints. OBJECTIVE LAB DATA: 07/05/14 WBC 4.62 Hgb 12.9 Plt 391 ANC 2.17 K 2.9 Mag 1.5 IV ACCESS: Right Mediport BLOOD RETURN: yes + ANY S/S OF INFECTION/EXTRAVASATIONS: site reddened after infusion, sore looking, but patient without complaints IV FLUSHED WITH: 20 cc Normal saline & 500 units heparin IV DISCONTINUED: yes Pre administration: Chemotherapy orders independently verified for drug name, route, and dosage per patient's height, weight and BSA by Eddie RN and Arash RN REACTIONS (DESCRIPTION, TIME, INTERVENTION AND EFFECTIVENESS) none ASSESSMENT Narda was awake, alert and he tolerated treatment well. PLAN Return to clinic per routine, as scheduled. documented in this encounter Plan of Treatment [...] 10 mg, Intravenous, ONCE, 1 dose, On Fri07/05/14 at 1130, Administer 30 minutes prior to PACLitaxel Given 07/05/2014 11:33 AM EDT 10 mg diphenhydrAMINE (BENADRYL) injection 25 mg 25 mg, Intravenous, ONCE, 1 dose, On Fri07/05/14 at 1130, Administer 30 minutes prior to PACLitaxel, Routine Given 07/05/2014 11:37 AM EDT 25 mg famotidine (PEPCID) injection 20 mg 20 mg, Intravenous, ONCE, 1 dose, On Fri07/05/14 at 1130, Administer 30 minutes prior to PACLitaxel Given 07/05/2014 11:38 AM EDT 20 mg heparin, porcine 100 unit/mL flush 500 Units 500 Units, Intravenous, ONCE PRN, Starting on Fri07/05/14 at 1104, Until Fri07/05/14 at 1723, Line Care, Refer to Intravenous (IV) Procedure: Accessing Implanted Vascular Access Devices (214) procedure and/or Intravenous (IV) Job Aid: Adult Flushing & Catheter Care (8797) job aid for additional information regarding guidelines and administration., Routine Given 07/05/2014 1:39 PM EDT 500 Units magnesium sulfate 1g in dextrose 5% 100mL 1 g, Intravenous, ONCE, 1 dose, On Fri07/05/14 at 1200, Administer over 60 Minutes, Serum magnesium 1.5 mg/dl. Given 07/05/2014 12:00 PM EDT 1 g 100 mL/hr ondansetron (ZOFRAN) tablet 16 mg 16 mg, Oral, ONCE, 1 dose, On Fri07/05/14 at 1130, Administer prior to chemotherapy, Routine Given 07/05/2014 11:33 AM EDT 16 mg PACLitaxel (TAXOL) 154 mg in dextrose 5% Non-PVC 275.6667 mL chemo infusion 154 mg (rounded from 154.4 mg = 80 mg/m2/dose ? 1.93 m2 Treatment Plan BSA from Recorded weight), Intravenous, ONCE, 1 dose, On Fri07/05/14 at 1230, Administer over 60 Minutes New Bag 07/05/2014 12:11 PM EDT 154 mg 276 mL/hr potassium chloride 20 mEq in 100 mL 20 mEq, Intravenous, ONCE, 1 dose, On Fri07/05/14 at 1200, Administer over 60 Minutes, Central line use only. Serum potassium 2.9 Given 07/05/2014 12:02 PM EDT 20 mEq 100 mL/hr sodium chloride 0.9 % flush 5-20 mL 5-20 mL, Intravenous, EVERY 1 MIN PRN, Starting on Fri07/05/14 at 1104, Until Fri07/05/14 at 1723, Line Care, Flush pertains to all indwelling lines. Flush per protocol found in the job aid using the link provided on this medication record. Refer to Intravenous (IV) Job Aid: Adult Flushing & Catheter Care (5464) job aid for additional information regarding guidelines and administration., Routine Given 07/05/2014 1:39 PM EDT 20 mLs documented in this encounter Care Teams Owner Manager Relationship Specialty Start Date End Date Ag Trent MD [address] [place] [address] PCP - General 02/02/14 documented as of this encounter
--- OUTSIDE RECORDS SUMMARY | 2024-02-17 15:58 | XMS_ITS | Encounter Summary ---
Author Organization [facility] Address [facility] [address] [address] [place] [address] Care Team Providers Care Bookmobile Clerk Name Role Phone Ag Trent MD Primary Care Provider [phone] Reason for Visit * Reason Comments Follow-up Encounter Details Date Type Department Care Team (Late st Contact Info) Description 07/12/2014 10:00 AM EDT Follow-Up Hematology/Oncology at [address] [phone] Kirill Saavedra MD [facility] [address] [place] [address] Breast cancer, left breast; Hypokalemia; Hypomagnesemia; Fatigue Discharge Disposition: Home Social History Tobacco Use [...] Sign Reading Time Taken Comments Blood Pressure 128/78 07/12/2014 10:16 AM EDT Pulse 84 07/12/2014 10:16 AM EDT Temperature 36.8 ??C (98.2 ??F) 07/12/2014 1 0:16 AM EDT Respiratory Rate 18 07/12/2014 10:1 6 AM EDT Oxygen Saturation 98% 07/12/2014 10: 16 AM EDT Inhaled Oxygen Concentration - - Weight 80.1 kg (176 lb 8 oz) 07/12/2014 10:16 AM EDT without shoes Height 161 cm (5' 3.39) 07/12/2014 10: 16 AM EDT Body Mass Index 30.89 07/12/2014 10:16 AM EDT documented in this encounter Progress Notes * Kirill Saavedra MD - 07/12/2014 10:54 AM EDT Diagnosis: 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 Subjective:Zofran helps with nausea HPI: Ms. Narda Rivera is 63 y.o. female Referred to us for consultation by Dr. Cohen on new diagnosis of breast cancer. She initially presenteda mass in her upper outer left breast with calcificationson a screening mammogram in December 2013.The main mass wasbiopsied showing infiltrating ductal and lobular carcinoma, ER positive, [id number]. MRI was then performed that showed the mass with multiple small satellites around it. Mrs. Rivera underwent left partial mastectomy and sentinel lymph nodebiopsy on February 23, 2014. Postoperative course was uneventful. Interval history: Ms. Rivera is in clinic today for followup appointment and 8-th dose of weekly Taxol. She took antibiotics for 3 days and stopped it after seeing interventional radiologist.She feelsnauseatedand uses Zofran and dexamethasone once a day. She denies any numbness and tingling in extremities or new pain. Mrs. Rivera continue to exercises regularly. She still has rash now with mild itching. PMH: no interval changes Patient Active Problem [...] dysuria and difficulty urinating. Musculoskeletal: Negative. Skin: rash on arms and upper chest Neurological: Negative. Hematological: Negative for adenopathy. 10 [...] or inguinal areas. Neurologic: Normal Vitals BP 128/78 Pulse 84 Temp(Src) 36.8 ??C (98.2 ??F) (Oral) Resp 18 Ht 161 cm (5' 3.39) Wt 80.06 kg (176 lb 8 oz) BMI 30.89 kg/m2 SpO2 98% Karnofsky score is 90 [...] count: Mitotic count: Score = 3 Total Logan Score: Logan Grade III: 8-9 points DCIS: Ductal Carcinoma [...] slide reconstruction) MICROCALCIFICATIONS: Present in nonneoplastic tissue ER/MA/HER2: ER/MA/Her2 Comment: Please see prior biopsy [id number]. HER2 FISH will be repeated on this [...] cancer cells with immunostaining) Stain Intensity: Strong MA immunoreactivity: Positive (11-90% cancer cells with immunostaining) Stain Intensity: Strong NEGATIVE FOR HER2/DEL AMPLIFICATION Labs: WBC 3.85, hemoglobin 12.7, platelet count 317, ANC 2.43, calcium 9.0, BUN 11, creatinine 0.8,alkaline phosphatase 67, sodium 142, potassium 3.4, AST 19, ALT 28, magnesium 1.7. Imagin03/15/14, CT scan of chest, abdomen and pelvis: No evidence of abdominal pelvic metastatic disease.No evidence of thoracic metastatic disease. 8 cm fluid collection in the left breast. This likely reflects postsurgical change. 03/15/14 echocardiogram: normal biventricular size and systolic function; estimated LVEF 65%. 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 Will proceed with 8-th dose of weekly Taxol today 2. Hypokalemia/hypomagnesimia: potassium 3.4 today, Magnesium 1.7. Magnesium sulfate 1 gm IV today Continue potassium and magnesium PO supplementation. Potassium 20 mEq twice a day and magnesium oxide 400 mg twice a day 3. Anxiety:controlled on lorazepam 4. Mucositis: Carafate and/or miracle mouthwash PRN 5. Rash: papular on low arms, grade 1 Plan: 1. Weekly Taxol today. 1 gm of Mg sulfate IV 2.Continue Mg oxide 400 mg potassium 20 mEQ BID 3. Next visit in 1 weeks with CBC, CMP, magnesium and weekly Taxol Mrs. Rivera is by herself today. The [...] Priority Date/Time Associated Diagnosis Comments LAB SCAN 07/12/2014 12:00 AM EDT CHEMOTHERAPY SCAN 07/12/2014 12:00 AM EDT documented in this encounter Results * SCAN DOC: CHEMOTHERAPY (07/12/2014 12:00 AM EDT) Scanning Provider MEDIA MGR SCAN EXT O RDR/RSLT * SCAN DOC: LAB (07/12/2014 12:00 AM EDT) Scanning Provider MEDIA MGR SCAN EXT O RDR/RSLT documented in this encounter Visit Diagnoses Diagnosis Breast cancer, left breast Malignant neoplasm of breast (female), unspecified site Hypokalemia Hypopotassemia Hypomagnesemia Disorders of magnesium metabolism Fatigue Other malaise and fatigue documented in this encounter Care Teams Bookmobile Clerk Relationship Specialty Start Date End Date Ag Trent MD [address] [place] [address] PCP - General 02/02/14 documented as of this encounter
--- OUTSIDE RECORDS SUMMARY | 2024-02-17 15:58 | XMS_ITS | Encounter Summary ---
Author Organization [facility] Address [facility] [place] [address] Care Team Providers Care Full Time Name Role Phone Ag Trent MD Primary Care Provider [phone] Encounter Details Date Type Department Care Team (Late st Contact Info) Description 06/22/2014 Notes Only H[place]ology [place] [address] Kirill Saavedra MD [facility] DR [place] [address] Social History Tobacco Use Types Packs/Day Years [...] Progress Notes * Yulissa Mcguire RN - 06/22/2014 3:39 PM EDT Research Study Note; Week 12 phone call 06/22/14 Control arm A [id number]: Effects of an Exercise Intervention on Physical [...] not exercise due to effects of the benadryl just like the previous week. Her daily average steps= 3,009 in the past week. She still feels neutral about her bike exercising, not good, not bad. I explained again the length of the study and she confirmed that she is planning to continue but probably switching to swimming when all treatment is finished. documented in this encounter Plan of Treatment Not on file documented as of this encounter Visit Diagnoses Not on filedocumented in this encounter Care Teams Full Time Relationship Specialty Start Date End Date Ag Trent MD [address] [place] [address] PCP - General 02/02/14 documented as of this encounter
--- OUTSIDE RECORDS SUMMARY | 2024-02-17 15:58 | XMS_ITS | Encounter Summary ---
Author Organization [facility] Address [facility] [place] [address] Care Team Providers Care Water Sander Name Role Phone Ag Trent MD Primary Care Provider [phone] Reason for Visit * Reason Comments Follow-up Encounter Details Date Type Department Care Team (Late st Contact Info) Description 08/09/2014 9:00 AM EDT Follow-Up Hematology/Oncology at [address] [phone] Kirill Fox MD [facility] HEMATOLOGY [place] [address] Malignant neoplasm of left female breast (BREAST CANCER); Fatigue Discharge Disposition: Home Social History Tobacco [...] Sign Reading Time Taken Comments Blood Pressure 112/59 08/09/2014 9:02 AM EDT Pulse 79 08/09/2014 9:02 AM EDT Temperature 36.8 ??C (98.2 ??F) 08/09/2014 9:02 AM ED T Respiratory Rate 16 08/09/2014 9:02 AM EDT Oxygen Saturation 99% 08/09/2014 9:02 AM EDT Inhaled Oxygen Concentration - - Weight 79.8 kg (176 lb) 08/09/2014 9:02 AM EDT Height 161 cm (5' 3.39) 08/09/2014 9:02 AM EDT Body Mass Index 30.8 08/09/2014 9:02 AM EDT documented in this encounter Progress Notes * Kirill Fox MD - 08/09/2014 9:44 AM EDT Diagnosis: 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 Subjective:I feel more tired HPI: Ms. Narda Rivera is 63 y.o. female Referred to us for consultation by Dr. Cohen on new diagnosis of breast cancer. She initially presenteda mass in her upper outer left breast with calcificationson a screening mammogram in December 2013.The main mass wasbiopsied showing infiltrating ductal and lobular carcinoma, ER positive, [id number]. MRI was then performed that showed the mass with multiple small satellites around it. Mrs. Rivera underwent left partial mastectomy and sentinel lymph nodebiopsy on February 23, 2014. Postoperative course was uneventful. Interval history: Ms. Rivera is in clinic today for followup appointment and 12- th dose of weekly Taxol. She felt more tired after last dose of chemotherapy. Mrs. Rivera continues exercises the every other day. She complains on mild tingling and numbness in her fingertips which does not interfere with her daily activities. Narda complains on constipation PMH: no interval changes Patient Active Problem [...] or inguinal areas. Neurologic: Normal Vitals BP 112/59 Pulse 79 Temp(Src) 36.8 ??C (98.2 ??F) (Oral) Resp 16 Ht 161 cm (5' 3.39) Wt 79.833 kg (176 lb) BMI 30.80 kg/m2 SpO2 99% Karnofsky score is 90 Pathology: ---Pathologic Diagnosis--- [...] count: Score = 3 Total Khalif Score: [place] Grade III: 8-9 points DCIS: Ductal Carcinoma [...] ER/NE/HER2: ER/NE/Her2 Comment: Please see prior biopsy [id number]. HER2 FISH will be repeated on this [...] FOR HER2/DEL AMPLIFICATION Labs: BUN 15, creatinine 0.7, alkaline phosphatase 75, AST 17, ALT 27, magnesium 1.7, potassium 3.3, WBC 3.39, hemoglobin 12.3, platelet count 365, ANC 2.1. Imagin03/15/14, CT scan of chest, abdomen and [...] 80 mg/m2 - 08/09/14 completed weekly Taxol Narda tolerates weekly Taxol reasonably well with some fatigue and grade 1 rash. Will proceed with 12-th dose of weekly Taxol today Narda will proceed with XRT. I'll see her back in 2-3 weeks after completion of radiation 2. Hypokalemia/hypomagnesimia: Continue potassium and magnesium PO supplementation. 3. Anxiety:controlled on lorazepam, new prescription for lorazepam was given 4. Mucositis: Carafate and/or miracle mouthwash PRN 5. Rash: papular on low arms, grade 1, continue hydrocortizone oitment Plan: 1. Weekly Taxol today. 2.Continue Mg oxide and potassium chloride 3. Mediport removal 4. Next visit with CBC, CMP in 2-3 weeks after completion of radiation Mrs. Rivera is by herself today. The plan was discussed with the patient in details. All questions were answered to patient's satisfaction. I would like to thank Dr. Cohen and Dr. Trent for allowing me to participate in the care of this wonderful lady documented in this encounter Miscellaneous Notes * Addendum Note - Kirill Fox MD - 08/09/2014 4:36 PM EDTAddended by: KIRILL FOX on: 08/09/2014 04:36 PM Modules accepted: Orders, Level of Service documented in this encounter Plan of Treatment Not on file documented as of this encounter Procedures Procedure Name Priority Date/Time Associated Diagnosis Comments LAB SCAN 08/09/2014 12:00 AM EDT documented in this encounter Results * IR Removal of Mediport (08/23/2014 10:36 AM EDT) Anatomical Region Laterality Modality X-Ray Angiograph y 08/23/2014 10:3 6 AM EDT Narrative 08/23/2014 1:46 PM EDT ??Procedures ??1. ABDOMINAL PARACENTESIS (DX OR THERAPEUTIC); W/ IMAGING GUIDANCE [LDG2110 (CPT?)] ??Expand All Collapse All VIR PROCEDURE [...] ABDOMINAL PARACENTESIS (DX OR THERAPEUTIC); W/ IMAGING GUIDANCE[QPB0671 (CPT?)] Expand All Collapse All VIR PROCEDURE [...] Brittny Vaughn PA-C Attending: Dr. Weaver Kirill Fox MD IMG IR ORDERABLES * SCAN DOC: LAB (08/09/2014 12:00 AM EDT) Scanning Provider MEDIA MGR SCAN EXT O RDR/RSLT documented in this encounter Visit Diagnoses Diagnosis Malignant neoplasm of left female breast (BREAST CANCER) Malignant neoplasm of breast (female), unspecified site Fatigue Other malaise and fatigue Malignant neoplasm of left female breast (BREAST CANCER) Malignant neoplasm of breast (female), unspecified site documented in this encounter Care Teams Water Sander Relationship Specialty Start Date End Date Ag Trent MD [address] [place] [address] PCP - General 02/02/14 documented as of this encounter
--- OUTSIDE RECORDS SUMMARY | 2024-02-17 15:58 | XMS_ITS | Encounter Summary ---
Author Organization [facility] Address [facility] [place] [address] Care Team Providers Care Manager Of Program Name Role Phone Ag Trent MD Primary Care Provider [phone] Encounter Details Date Type Department Care Team (Late st Contact Info) Description 08/16/2014 Orders Only Radiation Oncology at [address] [phone] Clau Alfonso MD [facility] [place] [address] Social History Tobacco Use Types Packs/Day Years [...] Associated Diagnosis Comments FILM LIBRARY STORAGE ONLY RADIATION ONCOLOGY STUDIES Routine 08/16/2014 10:01 AM EDT documented in this encounter Results * Film Library- Storage Only Radiation Oncology Studies (08/16/2014 10:01 AM EDT) Anatomical Region Laterality Modality Other 08/16/2014 10:0 1 AM EDT Narrative 08/16/2014 10:01 AM EDT This is a Non-reportable exam Procedure Note SURAJ, UNSIGNED REPORT - 08/16/2014 This is a Non-reportable exam Clau Alfonso MD IMG FILM LIBRARY ORD ERABLES documented in this encounter Visit Diagnoses Not on filedocumented in this encounter Care Teams Manager Of Program Relationship Specialty Start Date End Date Ag Trent MD [address] [place] [address] PCP - General 02/02/14 documented as of this encounter
--- OUTSIDE RECORDS SUMMARY | 2024-02-17 15:58 | XMS_ITS | Encounter Summary ---
Author Organization [facility] Address [facility] [place] [address] Care Team Providers Care Human Projectile Name Role Phone Ag Trent MD Primary Care Provider [phone] Reason for Visit * Reason Comments Chemotherapy Encounter Details Date Type Department Care Team (Jonathan st Contact Info) Description 08/02/2014 9:30 AM EDT Infusion Hematology Oncology at [address] [phone] CLINIC, DR ARANGO HEM/ONC Breast [...] encounter Progress Notes * Iman Liang - 08/02/2014 11:31 AM EDT INFUSION THERAPY ADMINISTRATION NOTES DIAGNOSIS: Breast Ca CYCLE #: 4 Day 8 REASON FOR VISIT: Chemotherapy SUBJECTIVE Narda is feeling tired today, had a bad day, otherwise no other symptoms. OBJECTIVE LAB DATA: 08/02/14 WBC 4.08 Hgb 12.0 Plt 375 ANC 2.65 IV ACCESS: Right mediport BLOOD RETURN: yes + ANY S/S OF INFECTION/EXTRAVASATIONS: none IV FLUSHED WITH: 20 cc Normal Saline & 500 units Heparin IV DISCONTINUED: yes Pre administration: Chemotherapy orders independently verified for drug name, route, and dosage per patient's height, weight and BSA by FILOMENA Antoine and onsite pharmacist REACTIONS (DESCRIPTION, TIME, INTERVENTION AND EFFECTIVENESS) none [...] 10 mg, Intravenous, ONCE, 1 dose, On Fri08/02/14 at 1215, Administer 30 minutes prior to PACLitaxel Given 08/02/2014 12:23 PM EDT 10 mg diphenhydrAMINE (BENADRYL) injection 25 mg 25 mg, Intravenous, ONCE, 1 dose, On Fri08/02/14 at 1215, Administer 30 minutes prior to PACLitaxel, Routine Given 08/02/2014 12:15 PM EDT 25 mg famotidine (PEPCID) injection 20 mg 20 mg, Intravenous, ONCE, 1 dose, On Fri08/02/14 at 1215, Administer 30 minutes prior to PACLitaxel Given 08/02/2014 12:21 PM EDT 20 mg heparin, porcine 100 unit/mL flush 500 Units 500 Units, Intravenous, ONCE PRN, Starting on Fri08/02/14 at 1159, Until e 08/02/14 at 1616, Line Care, Refer to Intravenous (IV) Procedure: Accessing Implanted Vascular Access Devices (444) procedure and/or Intravenous (IV) Job Aid: Adult Flushing & Catheter Care (8128) job aid for additional information regarding guidelines and administration., Routine Given 08/02/2014 2:13 PM EDT 500 Units ondansetron (ZOFRAN) tablet 16 mg 16 mg, Oral, ONCE, 1 dose, On Fri08/02/14 at 1215, Administer prior to chemotherapy, Routine Given 08/02/2014 12:18 PM EDT 16 mg PACLitaxel (TAXOL) 154 mg in dextrose 5% Non-PVC 275.6667 mL chemo infusion 154 mg (rounded from 154.4 mg = 80 mg/m2/dose ? 1.93 m2 Treatment Plan BSA from Recorded weight), Intravenous, ONCE, 1 dose, On Fri08/02/14 at 1230, Administer over 60 Minutes New Bag 08/02/2014 1:04 PM EDT 154 mg 276 mL/hr sodium chloride 0.9 % flush 5-20 mL 5-20 mL, Intravenous, EVERY 1 MIN PRN, Starting on Fri08/02/14 at 1159, Until Fri08/02/14 at 1616, Line Care, Flush pertains to all indwelling lines. Flush per protocol found in the job aid using the link provided on this medication record. Refer to Intravenous (IV) Job Aid: Adult Flushing & Catheter Care (4070) job aid for additional information regarding guidelines and administration., Routine Given 08/02/2014 2:12 PM EDT 20 mLs documented in this encounter Care Teams Human Projectile Relationship Specialty Start Date End Date Ag Trent MD [address] [place] [id number] PCP - General 02/02/14 documented as of this encounter
--- OUTSIDE RECORDS SUMMARY | 2024-02-17 15:58 | XMS_ITS | Encounter Summary ---
Author Organization [facility] Address [facility] [place] [address] Care Team Providers Care Rock Wool Insulator Name Role Phone Ag Trent MD Primary Care Provider [phone] Reason for Visit * Reason Comments Follow-up Encounter Details Date Type Department Care Team (Late st Contact Info) Description 08/02/2014 8:30 AM EDT Follow-Up Hematology/Oncology at [address] [phone] Kirill Saavedra MD [facility] DR [place] [address] Iman Liang RN Breast cancer, left breast; Fatigue Discharge Disposition: Home Social History Tobacco [...] Sign Reading Time Taken Comments Blood Pressure 115/72 08/02/2014 10:37 AM EDT Pulse 83 08/02/2014 10:37 AM EDT Temperature 36.8 ??C (98.2 ??F) 08/02/2014 10:37 AM E DT Respiratory Rate 16 08/02/2014 10:37 AM EDT Oxygen Saturation 99% 08/02/2014 10:37 AM EDT Inhaled Oxygen Concentration - - Weight 79.6 kg (175 lb 8 oz) 08/02/2014 10:37 AM EDT Height 161 cm (5' 3.39) 08/02/2014 10:37 AM EDT Body Mass Index 30.71 08/02/2014 10:37 AM EDT documented in this encounter Progress Notes * Kirill Saavedra MD - 08/02/2014 11:09 AM EDT Diagnosis: 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 Subjective:I feel more tired HPI: Ms. Narda Rivera is 63 y.o. female Referred to us for consultation by Dr. Cohen on new diagnosis of breast cancer. She initially presenteda mass in her upper outer left breast with calcificationson a screening mammogram in December 2013.The main mass wasbiopsied showing infiltrating ductal and lobular carcinoma, ER positive, [id number]. MRI was then performed that showed the mass with multiple small satellites around it. Mrs. Rivera underwent left partial mastectomy and sentinel lymph nodebiopsy on February 23, 2014. Postoperative course was uneventful. Interval history: Ms. Rivera is in clinic today for followup appointment and 11- th dose of weekly Taxol. She felt more tired after last dose of chemotherapy. Mrs. Rivera continues exercises the every other day. Rash and itching have improved on hydrocortisone cream PMH: no interval changes Patient Active Problem [...] on arms and upper chest Neurological: mild numbness in fingertips. Hematological: Negative for adenopathy. 10 [...] or inguinal areas. Neurologic: Normal Vitals BP 115/72 Pulse 83 Temp(Src) 36.8 ??C (98.2 ??F) (Oral) Resp 16 Ht 161 cm (5' 3.39) Wt 79.606 kg (175 lb 8 oz) BMI 30.71 kg/m2 SpO2 99% Karnofsky score is 90 [...] count: Score = 3 Total Khalif Score: [place] Grade III: 8-9 points DCIS: Ductal Carcinoma [...] slide reconstruction) MICROCALCIFICATIONS: Present in nonneoplastic tissue ER/OH/HER2: ER/OH/Her2 Comment: Please see prior biopsy [id number]. HER2 FISH will be repeated on this [...] cancer cells with immunostaining) Stain Intensity: Strong OH immunoreactivity: Positive (11-90% cancer cells with immunostaining) Stain Intensity: Strong NEGATIVE FOR HER2/DEL AMPLIFICATION Labs: Calcium 8.9, BUN 11, creatinine 0.7, total protein 6.7, albumin 3.1, TB 0.27, alkaline phosphatase 83, potassium 3.5, magnesium 1.8, AST 19, ALT 26, WBC 4.08, hemoglobin 12.0, platelet count 375, ANC 2.65. Imagin03/15/14, CT scan of chest, abdomen and pelvis: No evidence of abdominal pelvic metastatic disease.No evidence of thoracic metastatic disease. 8 cm fluid collection in the left breast. This likely reflects postsurgical change. 03/15/14 echocardiogram: normal biventricular size and systolic function; estimated LVEF 65%. 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 Will proceed with 11-th dose of weekly Taxol today 2. Hypokalemia/hypomagnesimia: potassium 3.5 today, Magnesium 1.8. y Continue potassium and magnesium PO supplementation. 3. Anxiety:controlled on lorazepam 4. Mucositis: Carafate and/or miracle mouthwash PRN 5. Rash: papular on low arms, grade 1, continue hydrocortizone oitment Plan: 1. Weekly Taxol today. 2.Continue Mg oxide and potassium chloride 3. Next visit in 1 weeks with [...] Priority Date/Time Associated Diagnosis Comments LAB SCAN 08/02/2014 12:00 AM EDT documented in this encounter Results * SCAN DOC: LAB (08/02/2014 12:00 AM EDT) Scanning Provider MEDIA MGR SCAN EXT O RDR/RSLT documented in this encounter Visit Diagnoses Diagnosis Breast cancer, left breast Malignant neoplasm of breast (female), unspecified site Fatigue Other malaise and fatigue documented in this encounter Care Teams Rock Wool Insulator Relationship Specialty Start Date End Date Ag Trent MD [address] [place] [address] PCP - General 02/02/14 documented as of this encounter
--- OUTSIDE RECORDS SUMMARY | 2024-02-17 15:58 | XMS_ITS | Encounter Summary ---
Author Organization [facility] Address [facility] [place] [address] Care Team Providers Care Roller Mill Tender Name Role Phone Ag Trent MD Primary Care Provider [phone] Encounter Details Date Type Department Care Team (Late st Contact Info) Description 07/05/2014 Notes Only Hematology Oncology at [address] [phone] Taylor Sousa, HEALTH ECONOMIST OFFICE OF CARE MANAGEMENT Social History Tobacco Use Types Packs/Day Years Used Date Smoking Tobacco: Never Smokeless Tobacco: Never Alcohol Use Standard Drinks/Week Comments No 0 (1 standard drink = 0.6 oz pur e alcohol) Sex and Gender Information Value Date Recorded Sex Assigned at Not on file Gender Identity Not on file Sexual Orientation Not on file documented as of this encounter Progress Notes * Taylor Sousa MSW - 07/05/2014 11:52 AM EDT Follow up with pt re transportation issues. Friend who was driving pt into appointments has return home. Other friends provided rides last chemo and again today. Pt with additional questions re using [employer]. Pt does not have Medicaid and would need to find a funding source to pay for rides through [employer]. Encouraged her to contact [employer] to see if they will assist with this. Pt does have a vehicle. Pt indicated she has a contact at [facility] and will callif she needs to explore this option. Also reminded her of the [facility] program for volunteer drivers. Pt indicated she has this contact number also. Pt to discuss further with friends to see what their availability is and will go from there. Reminded pt of my contact number is any otherquestions. documented in this encounter Plan of Treatment Not on file documented as of this encounter Visit Diagnoses Not on filedocumented in this encounter Care Teams Roller Mill Tender Relationship Specialty Start Date End Date Ag Trent MD [address] [place] [address] PCP - General 02/02/14 documented as of this encounter
--- OUTSIDE RECORDS SUMMARY | 2024-02-17 15:58 | XMS_ITS | Encounter Summary ---
Author Organization [facility] Address [facility] [place] [address] Care Team Providers Care Sterile Technician Name Role Phone Ag Trent MD Primary Care Provider [phone] Reason for Visit * Reason Comments Radiation Treatment Encounter Details Date Type Department Care Team (Late st Contact Info) Description 09/06/2014 11:15 AM EDT Office Visit Radiation Oncology at [address] [phone] Clau Alfonso MD [facility] [place] [address] Breast cancer, female, left Discharge Disposition: Home [...] Sign Reading Time Taken Comments Blood Pressure 107/70 09/06/2014 11:00 AM EDT Pulse 68 09/06/2014 11:00 AM EDT Temperature 36.8 ??C (98.2 ??F) 09/06/2014 11:00 AM E DT Respiratory Rate 18 09/06/2014 11:00 AM EDT Oxygen Saturation 98% 09/06/2014 11:00 AM EDT Inhaled Oxygen Concentration - - Weight - - Height - - Body Mass Index - - documented in this encounter Progress Notes * Clau Alfonso MD - 09/06/2014 11:30 AM EDT DIAGNOSIS: Breast, L, IDC w/lobular features; high gr, ER+MI+, [id number] s/p lumpectomy & SNB, pT2 pN1a, stage II, +extensive LVI. S/p adjuvant chemo. CURRENT TREATMENT DOSE: 10.8 Gy L supraclav, L axilla, L breast ANTICIPATED TOTAL DOSE: 50.4 Gy L supraclav, L axilla & L breast; 60.4 Gy lumpectomy bed L breast Current # of xrt received: 6 Anticipated total # of xrt txs: 28 L supraclav, L axilla & L breast; 33 lumpectomy bed L breast Evaluation of port verification films: Approved. For details, see electronic film record in [employer]. Changes in Medical Condition: Was prescribed an antibiotic last wk by her PCP for a possible infection. PCP also obtained a CT of chest. Skin w/in irrad'd area ok; applies madhu's cream. Pain?: No. Physical Exam: BP 107/70 Pulse 68 Temp(Src) 36.8 ??C (98.2 ??F) (Oral) Resp 18 SpO2 98% A&Ox3, in NAD. Minimal erythema w/in irrad'd area. Xrays: 09/02/14 CT ch to eval for [...] left documented in this encounter Care Teams Sterile Technician Relationship Specialty Start Date End Date Ag Trent MD [address] [place] [address] PCP - General 02/02/14 documented as of this encounter
--- OUTSIDE RECORDS SUMMARY | 2024-02-17 15:58 | XMS_ITS | Encounter Summary ---
Author Organization [facility] Address [facility] [place] [address] Care Team Providers Care Manager English Name Role Phone Ag Trent MD Primary Care Provider [phone] Reason for Visit * Reason Comments Follow-up Encounter Details Date Type Department Care Team (Late st Contact Info) Description 06/28/2014 10:00 AM EDT Follow-Up Hematology Oncology at [address] [phone] Kirill Saavedra MD [facility] DR HEMATOLOGY [place] [address] Breast cancer, left; Hypomagnesemia; Nausea alone Discharge Disposition: Home Social History [...] Sign Reading Time Taken Comments Blood Pressure 133/81 06/28/2014 10:03 AM EDT Pulse 88 06/28/2014 10:03 AM EDT Temperature 37 ??C (98.6 ??F) 06/28/2014 10:03 AM EDT Respiratory Rate 18 06/28/2014 10:03 AM EDT Oxygen Saturation 97% 06/28/2014 10:03 AM EDT Inhaled Oxygen Concentration - - Weight 82.6 kg (182 lb) 06/28/2014 10:03 AM EDT Height 161 cm (5' 3.39) 06/28/2014 10:03 AM EDT Body Mass Index 31.85 06/28/2014 10:03 AM EDT documented in this encounter Progress Notes * Kirill Saavedra MD - 06/28/2014 10:31 AM EDT Diagnosis: 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 Subjective:I feel more nauseated HPI: Ms. Narda Rivera is 63 y.o. female Referred to us for consultation by Dr. Cohen on new diagnosis of breast cancer. She initially presenteda mass in her upper outer left breast with calcificationson a screening mammogram in December 2013.The main mass wasbiopsied showing infiltrating ductal and lobular carcinoma, ER positive, [id number]. MRI was then performed that showed the mass with multiple small satellites around it. Mrs. Rivera underwent left partial mastectomy and sentinel lymph nodebiopsy on February 23, 2014. Postoperative course was uneventful. Interval history: Ms. Rivera is in clinic today for followup appointment and 6-th dose of weekly Taxol. She stopped eating pot cookies. She felt more nauseated over last week and used zofran up to 4-6pills a day. She complains on rash on her lower arms nonitchy. She denies any numbness and tinglingin extremities or new pain. Mrs. Rivera continue [...] or inguinal areas. Neurologic: Normal Vitals BP 133/81 Pulse 88 Temp(Src) 37 ??C (98.6 ??F) (Oral) Resp 18 Ht 161 cm (5' 3.39) Wt 82.555 kg (182 lb) BMI 31.85 kg/m2 SpO2 97% Karnofsky score is 90 Pathology: ---Pathologic Diagnosis--- [...] slide reconstruction) MICROCALCIFICATIONS: Present in nonneoplastic tissue ER/NC/HER2: ER/NC/Her2 Comment: Please see prior biopsy [id number]. HER2 FISH will be repeated on this [...] cancer cells with immunostaining) Stain Intensity: Strong NC immunoreactivity: Positive (11-90% cancer cells with immunostaining) Stain Intensity: Strong NEGATIVE FOR HER2/DEL AMPLIFICATION Labs: WBC 4.01, hemoglobin 13.2, platelet count 348, ANC 2.51, calcium 9.4, BUN 11, creatinine is 1.0, albumin 3.7, alkaline phosphatase 87, potassium 3.6, AST 30, ALT 42, Magnesium 1.6 Imagin03/15/14, CT scan of chest, abdomen and pelvis: No evidence of abdominal pelvic metastatic disease.No evidence of thoracic metastatic disease. 8 cm fluid collection in the left breast. This likely reflects postsurgical change. 03/15/14 echocardiogram: normal biventricular size and systolic function; estimated LVEF 65%. 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 I recommend to try dexamethasone and/or compazine to control nausea. I emphasized that she shouldn't take more than 4 pills of Zofran a day. Will proceed with 6-th dose today 2. Hypokalemia/hypomagnesimia: potassium 3.4 today, Magnesium 1.5. Magnesium sulfate 2 gm today, continue potasiun PO supplementation. 3. Anxiety:controlled on lorazepam 4. Mucositis: Carafate and/or miracle mouthwash PRN Plan: 1. Weekly Taxol today. 2. Next visit in 1 weeks with CBC, [...] Priority Date/Time Associated Diagnosis Comments LAB SCAN 06/28/2014 12:00 AM EDT CHEMOTHERAPY SCAN 06/28/2014 12:00 AM EDT documented in this encounter Results * SCAN DOC: CHEMOTHERAPY (06/28/2014 12:00 AM EDT) Scanning Provider MEDIA MGR SCAN EXT O RDR/RSLT * SCAN DOC: LAB (06/28/2014 12:00 AM EDT) Scanning Provider MEDIA MGR SCAN EXT O RDR/RSLT documented in this encounter Visit Diagnoses Diagnosis Breast cancer, left Malignant neoplasm of breast (female), unspecified site Hypomagnesemia Disorders of magnesium metabolism Nausea alone documented in this encounter Care Teams Manager English Relationship Specialty Start Date End Date Ag Trent MD [address] [place] [address] PCP - General 02/02/14 documented as of this encounter
--- OUTSIDE RECORDS SUMMARY | 2024-02-17 15:58 | XMS_ITS | Encounter Summary ---
Author Organization [facility] Address [facility] [place] [address] Care Team Providers Care Lieutenant General Name Role Phone Ag Trent MD Primary Care Provider [phone] Encounter Details Date Type Department Care Team (Late st Contact Info) Description 08/10/2014 Orders Only Hematology/Oncology at [address] [phone] Kirill Saavedra MD [facility] DR [place] [address] Malignant neoplasm of left female breast (BREAST [...] site documented in this encounter Care Teams Lieutenant General Relationship Specialty Start Date End Date Ag Trent MD [address] [place] [address] PCP - General 02/02/14 documented as of this encounter
--- OUTSIDE RECORDS SUMMARY | 2024-02-17 15:58 | XMS_ITS | Encounter Summary ---
Author Organization [facility] [place] [address] Care Team Providers Care Supervisor [employer] Name Role Phone Ag Trent MD Primary Care Provider [phone] Encounter Details Date Type Department Care Team (Late st Contact Info) Description 07/05/2014 Orders Only Hematology Oncology at [address] [phone] Ashley Elena, RN Breast cancer, left breast; Malignant neoplasm of [...] site documented in this encounter Care Teams Supervisor [employer] Relationship Specialty Start Date End Date Ag Trent MD [address] [place] [address] PCP - General 02/02/14 documented as of this encounter
--- OUTSIDE RECORDS SUMMARY | 2024-02-17 15:58 | XMS_ITS | Encounter Summary ---
Author Organization [facility] Address [facility] [place] [address] Care Team Providers Care Senior Government Program Analyst Name Role Phone Ag Trent MD Primary Care Provider [phone] Encounter Details Date Type Department Care Team (Late st Contact Info) Description 06/21/2014 1:00 PM EDT Ancillary Appointment Hematology Oncology at [address] [phone] [facility] [place] [address] Social History Tobacco Use Types Packs/Day Years [...] Progress Notes * Karen Padilla, TIN - 06/20/2014 4:00 PM EDT [facility] Dietitian Follow Up Assessment Seen By: Trish Padilla, MS, RD, [employer], LD Patient and diagnosis: Was asked to meet with pt by Dr. Rollins, was only able to meet briefly d/t3 kg wt loss in one week and mouth sores. 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 Assessment: HPI: Patient Active Problem List Diagnosis Code ??? Malignant neoplasm of left female breast (BREAST CANCER) 174.9 ??? Other specified prophylactic or treatment measure V07.8 ??? Breast cancer, left breast 174.9 ??? Mucositis 528.00 Meds: Labs: 06/21/14 reviewed, K 3.4, Mg 1.5 Dr. Quigley scripted supplement on 06/21 Wt: 83.9 kg on 06/21/14; gain Previous Wt: 83.4 kg on 05/24/14; gain Oncology Vitals 05/10/2014 Weight 83.008 kg Height 161 cm Wt Hx: UBW: % UBW: IBW: 51.8 kg +/- 10% % IBW: BMI: 32.1 ___ Edema ___ Ascites ___Muscle wasting Calorie needs: 1200 Protein needs: 78 Fluid needs: 2 L Food Intake: Typically eats breakfast but now d/t mouth sores, doesn't really eat much after that. States she is starting to feel better from last cycle. Am: Always have egg and cheese omlette, [...] Level of Motivation/Readiness to Change: Nutrition Diagnosis: She was eating a sub during infusion. Wt is up this week. We discussed the concept of food as [...] levels, if suboptimal in 3-6 mos. The [facility] series from [facility] 2008 showed a lower risk of breast cancerrecurrence in women with 25-hydroxy Vitamin D levels of 35 ng/mL or higher Nutrition Intervention: ? Increase caloric needs ? Modify diet consistency: ? Increase frequency of meals and snacks ? Need for supplements Nutrition Goals: Educational Handouts provided: -- High Valente Beverages -- Making the most of each bite -- Soft and moist high pro foods -- Taste and smell changes -- AICR's top 10 recommendations for cancer prevention Other Recommendations: ? Monitoring and Evaluation: Will follow up with Ms. Rivera in 6-8 week (s) to re-evaluate. documented in this encounter Plan of Treatment Not on file documented as of this encounter Visit Diagnoses Not on filedocumented in this encounter Care Teams Senior Government Program Analyst Relationship Specialty Start Date End Date Ag Trent MD [address] [place] [address] PCP - General 02/02/14 documented as of this encounter
--- OUTSIDE RECORDS SUMMARY | 2024-02-17 15:58 | XMS_ITS | Encounter Summary ---
Author Organization [facility] Address [facility] [address] [address] [place] [address] Care Team Providers Care Home Paraprofessional Name Role Phone Ag Trent MD Primary Care Provider [phone] Reason for Visit * Reason Comments Follow-up Encounter Details Date Type Department Care Team (Late st Contact Info) Description 07/19/2014 10:00 AM EDT Follow-Up Hematology Oncology at [address] [phone] Kirill Saavedra MD [facility] DR [place] [address] Malignant neoplasm of left female breast (BREAST CANCER); Hypokalemia; Hypomagnesemia; Nausea alone Discharge Disposition: Home Social [...] Sign Reading Time Taken Comments Blood Pressure 129/79 07/19/2014 10:07 AM EDT Pulse 90 07/19/2014 10:07 AM EDT Temperature 37.1 ??C (98.8 ??F) 07/19/2014 10:07 AM E DT Respiratory Rate 16 07/19/2014 10:07 AM EDT Oxygen Saturation 99% 07/19/2014 10:07 AM EDT Inhaled Oxygen Concentration - - Weight 81.9 kg (180 lb 8 oz) 07/19/2014 10:07 AM EDT Height 161 cm (5' 3.39) 07/19/2014 10:07 AM EDT Body Mass Index 31.59 07/19/2014 10:07 AM EDT documented in this encounter Progress Notes * Kirill Saavedra MD - 07/19/2014 10:54 AM EDT Diagnosis: 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 Subjective:I felt hyper HPI: Ms. Narda Rivera is 63 y.o. female Referred to us for consultation by Dr. Cohen on new diagnosis of breast cancer. She initially presenteda mass in her upper outer left breast with calcificationson a screening mammogram in December 2013.The main mass wasbiopsied showing infiltrating ductal and lobular carcinoma, ER positive, [id number]. MRI was then performed that showed the mass with multiple small satellites around it. Mrs. Rivera underwent left partial mastectomy and sentinel lymph nodebiopsy on February 23, 2014. Postoperative course was uneventful. Interval history: Ms. Rivera is in clinic today for followup appointment and 9-th dose of weekly Taxol. The rash has gotten worse since last visit. It is sill slightly itchy. She had to take zofran just once over last week. Narda complains on mild numness in fingertips which does not interfere with her daily activities. Mrs. Rivera continue to exercises regularly. She [...] or inguinal areas. Neurologic: Normal Vitals BP 129/79 Pulse 90 Temp(Src) 37.1 ??C (98.8 ??F) (Oral) Resp 16 Ht 161 cm (5' 3.39) Wt 81.874 kg (180 lb 8 oz) BMI 31.59 kg/m2 SpO2 99% Karnofsky score is 90 [...] count: Score = 3 Total Khalif Score: [place] Grade III: 8-9 points DCIS: Ductal Carcinoma [...] slide reconstruction) MICROCALCIFICATIONS: Present in nonneoplastic tissue ER/MD/HER2: ER/MD/Her2 Comment: Please see prior biopsy [id number]. HER2 FISH will be repeated on this [...] cancer cells with immunostaining) Stain Intensity: Strong MD immunoreactivity: Positive (11-90% cancer cells with immunostaining) Stain Intensity: Strong NEGATIVE FOR HER2/DEL AMPLIFICATION Labs: Consult 8.7, BUN 15, creatinine 0.8, albumin 3.3, alkaline phosphatase 72, sodium 143, potassium 3.0, magnesium 1.7, AST 20, ALT 61, WBC 4.17, hemoglobin 12.7, platelet count 228, ANC 2.5. Imagin03/15/14, CT scan of chest, abdomen and pelvis: No evidence of abdominal pelvic metastatic disease.No evidence of thoracic metastatic disease. 8 cm fluid collection in the left breast. This likely reflects postsurgical change. 03/15/14 echocardiogram: normal biventricular size and systolic function; estimated LVEF 65%. 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 Will proceed [id number] dose of weekly Taxol today 2. Hypokalemia/hypomagnesimia: potassium 3.0 today, Magnesium 1.7. Magnesium sulfate 1 gm IV and potassium 20 mEq today Continue potassium and magnesium PO supplementation. Potassium 20 mEq twice a day and magnesium oxide 400 mg twice a day 3. Anxiety:controlled on lorazepam 4. Mucositis: Carafate and/or miracle mouthwash PRN 5. Rash: papular on low arms, grade 1 Plan: 1. Weekly Taxol today. 1 gm of Mg sulfate IV and potassium chloride 20 mEq today 2.Continue Mg oxide 400 mg potassium 20 [...] Priority Date/Time Associated Diagnosis Comments LAB SCAN 07/19/2014 12:00 AM EDT CHEMOTHERAPY SCAN 07/19/2014 12:00 AM EDT documented in this encounter Results * SCAN DOC: CHEMOTHERAPY (07/19/2014 12:00 AM EDT) Scanning Provider MEDIA MGR SCAN EXT O RDR/RSLT * SCAN DOC: LAB (07/19/2014 12:00 AM EDT) Scanning Provider MEDIA MGR SCAN EXT O RDR/RSLT documented in this encounter Visit Diagnoses Diagnosis Malignant neoplasm of left female breast (BREAST CANCER) Malignant neoplasm of breast (female), unspecified site Hypokalemia Hypopotassemia Hypomagnesemia Disorders of magnesium metabolism Nausea alone documented in this encounter Care Teams Home Paraprofessional Relationship Specialty Start Date End Date Ag Trent MD [address] [place] [address] PCP - General 02/02/14 documented as of this encounter
--- OUTSIDE RECORDS SUMMARY | 2024-02-17 15:58 | XMS_ITS | Encounter Summary ---
Author Organization [facility] Address [facility] [place] [address] Care Team Providers Care Lumber Salvager Name Role Phone Ag Trent MD Primary Care Provider [phone] Encounter Details Date Type Department Care Team (Late st Contact Info) Description 09/01/2014 Notes Only [place]ology [place] [phone] Kirill Saavedra MD [facility] DR HEMATOLOGY AND ONCOLOGY [place] [id number] Social History Tobacco Use Types Packs/Day Years [...] Progress Notes * Yulissa Mcguire RN - 09/01/2014 11:33 AM EDT Research Study Note; Week 22 phone call 09/01/14 [place] [id number]: Effects of an Exercise Intervention on Physical Activity during Chemotherapy for Patients with Early Stage Breast Cancer PC to Narda to obtain exercise log data from 08/23/14 - 08/29/14. Narda reported that she exercised for 73 min mostly walking this week (15 min hula hoop). She had received the new pedometer but still has some concerns of its accuracy. She plans to wear two pedometers to see if they differ. Narda confirmed that she wears the pedometer on her waist band parallel to the ground as per instruction in her handbook. Daily average steps this week was 3,253. Narda reports feeling neutral about her exercise and her pace is mostly moderate (11-13 on the RPE scale). Narda saw her doctor yesterday who started her on an antibiotic for a possible chest infection. documented in this encounter Plan of Treatment Not on file documented as of this encounter Visit Diagnoses Not on filedocumented in this encounter Care Teams Lumber Salvager Relationship Specialty Start Date End Date Ag Trent MD [address] [place] [address] PCP - General 02/02/14 documented as of this encounter
--- OUTSIDE RECORDS SUMMARY | 2024-02-17 15:58 | XMS_ITS | Encounter Summary ---
Author Organization [facility] [place] [address] Care Team Providers Care Lead Sewage Plant Operator Name Role Phone Ag Trent MD Primary Care Provider [phone] Encounter Details Date Type Department Care Team (Late st Contact Info) Description 06/14/2014 Orders Only Hematology Oncology at [address] [phone] Ashley Elena, RN Breast cancer, left breast Social History Tobacco Use Types [...] site documented in this encounter Care Teams Lead Sewage Plant Operator Relationship Specialty Start Date End Date Ag Trent MD [address] [place] [address] PCP - General 02/02/14 documented as of this encounter
--- OUTSIDE RECORDS SUMMARY | 2024-02-17 15:58 | XMS_ITS | Encounter Summary ---
Author Organization [facility] Address [facility] [place] [address] Care Team Providers Care Furnace Filler Name Role Phone Ag Trent MD Primary Care Provider [phone] Encounter Details Date Type Department Care Team (Latest Contact Info) Description 07/01/2014 12:35 PM EDT - 07/01/2014 11:59 PM EDT Hospital [place] [phone] CLINIC, [facility] [address] HEMATOLOGY [place] [address] Discharge Disposition: Home Social History Tobacco Use [...] 06/28/2014 07/05/2014 magnesium oxide (MAG-OX) 400 mg TabletIndications:Scio st cancer, left breast Take 1 tablet by mouth daily. 30 tablet 3 06/14/2014 07/05/2014 Dtpmmsztb-Fgbdljmec-My -Mag-Sim [id number] mg/30 mL MouthwashIndications:M ucositis 5 mLs by [...] as of this encounter Progress Notes * Samra Farley MD - 06/30/2014 9:40 AM EDT Images from the original note were not included. PRE-PROCEDURE VIR NOTE Date of : 1950 Age: 63 y.o. PCP: AG TRENT MD Referring Physician (if different): Keri Indication: Mediport is reddened with very small (1-2mm) hole in upper right side of port area. Able to see what appears to be mediport. Please evaluate Planned Procedure: Port evaluation and possible replacement Chief Complaint/Diagnosis: Narda Frazier is a 63 y.o. female with left BCa s/p partial mastectomy andaxillary node dissection. She underwent RIJ port placement in Feb 2014. Per report the port site isreddened with very small (1-2mm) hole in upper right side of port area. We have been asked to evaluate the port and possible replace. Pertinent Past Medical/Surgical History: Patient Active Problem List Diagnosis Code ??? Malignant neoplasm of left female breast (BREAST CANCER) 174.9 ??? Other specified prophylactic or treatment measure V07.8 ??? Breast cancer, left breast 174.9 ??? Mucositis 528.00 Allergies Allergen Reactions ??? Narcotic Antagonist (Obsolete) Nausea And Vomiting ??? Coumadin [Warfarin] Severe bleeding ??? Oxycodone Unable to tolerate opiates Current Outpatient Prescriptions on File Prior to Encounter Medication Sig Dispense Refill ??? cephALEXin (KEFLEX) 500 mg Capsule Take 1 capsule by mouth 4 times daily. 28 capsule 0 ??? magnesium oxide (MAG-OX) 400 mg Tablet Take 1 tablet by mouth daily. 30 tablet 3 ??? Klixdtyme-Ycjdbnndy-Od-Mag-Sim [id number] mg/30 mL Mouthwash 5 mLs by Mucous Membrane route every 2 hours as needed. 237 mL 3 ??? sucralfate (CARAFATE) 100 mg/mL Suspension Take 10 mLs by mouth 4 times daily. 420 mL 0 ??? potassium chloride (K-DUR/KLOR-CON) 20 mEq Tab Sust.Rel. Particle/Crystal Take 1 tablet by mouth daily. 30 tablet 1 ??? bisacodyl (DULCOLAX) 5 mg Tablet, Delayed Release (E.C.) Take 5 mg by mouth daily as needed forConstipation. ??? polyethylene glycol (MIRALAX) 17 gram Powder in Packet Take 17 g by mouth 3 times daily as needed. ??? prochlorperazine (COMPAZINE) 10 mg Tablet Take 1 tablet by mouth every 6 hours as needed for Nausea. 30 tablet 3 ??? LORazepam (ATIVAN) 0.5 mg Tablet Take 1 tablet by mouth every 6 hours as needed for Anxiety (nausea). 30 tablet 0 ??? ERGOCALCIFEROL, VITAMIN D2, (VITAMIN D ORAL) [...] Take 175 mcg by mouth daily. ??? omeprazole (PRILOSEC) 20 mg Capsule, Delayed Release(E.C.) Take 20 mg by mouth daily. ??? hydrochlorothiazide (HYDRODIURIL) 25 [...] Labs: Lab Results Component Value Date WBC 6.8 03/18/2014 HCT 41.8 03/18/2014 PLATELET 289 03/18/2014 BUN 15 03/18/2014 Lab Results Component Value Date ALKPHOS 76 03/18/2014 AST 18 03/18/2014 ALBUMIN 3.7 03/18/2014 BILIDIR 0.1 03/18/2014 BILITOT <0.2* 03/18/2014 ALT 25 03/18/2014 Physical Exam:pending ASA: Mallampati Class: Assessment / Plan: Narda Frazier is a 63 y.o. female with left BCa s/p partial mastectomy and axillary node dissection. She underwent RIJ port placement in Feb 2014. Per report the port site is reddened with very small (1-2mm) hole in upper right side of port area. We have been asked to evaluate the port and possible replace. Medications to discontinue: none Prophylactic antibiotic: Possibly ancef Planned access site / position: Supine Addendum: The patient's history has been reviewed and physical exam completed and there has been interval change requiring a change in the procedural plan. A: Skin overlying patient's Mediport site is in tact with minimal redness. Not tender to palpation.No evidence of infection or skin breakdown. P: Given no evidence of skin breakdown nor infection, thus no intervention is need. Finding discussed with the patient who agree with the plan. Samra Farley MD. Page #[phone] * Josefina Glass RN - 06/29/2014 4:29 PM EDT ANGIO/VIR NURSING DATABASE Name: NARDA FRAZIER Date of : 1950 AGE 63 y.o. Address: [address] [place] [phone] (home) Mobile: No relevant phone numbers on file. Referring Provider: Kirill Saavedra Where will study be performed? [facility] Is the patient on anticoagulant / anitplatelet therapy ? No Reason for exam and clinical history: Patient currently has mediport in place for chemotherapy. Mediport is reddened with very small (1-2mm) hole in upper right side of port area. Able to see what appears to be mediport. Please evaluate Other pertinent information: Patient started on Keflex x 7 days on 06/28 Exam/Procedure requested: Evaluate mediport. Remove and reinsert if indicated. Verbal Order Info Allergies Allergen Reactions ??? Narcotic Antagonist (Obsolete) Nausea And Vomiting ??? Coumadin [Warfarin] Severe bleeding ??? Oxycodone [...] PARTIAL performed by Ibrahima Cohen MD at [facility] MAIN OR ??? Bx/remv, lymph node, deep axill Left 02/22/2014 BIOPSY OR EXCISION OF LYMPH NODE(S), OPEN, DEEP AXILLARY NODE(S) performed by Ibrahima Cohen MD at [facility] MAIN OR ??? Identify sentinel node Left 02/22/2014 SENTINEL NODE INJECTION performed by Ibrahima Cohen MD at [facility] MA[facility] OR ??? Left 02/22/2014 MODIFIER SENTINEL NODE EXCISION performed by Ibrahima Cohen MD at [facility] OR Date/Procedure Comments: 03/18/14 Mediport placement Ancef 1gm IV, Valium 10mg PO. Pt refused IV sedation medications. Tolerated well. Laboratory Results: No results found for this basename: inr No components found with this basename: PT/PTT Lab Results Component Value Date CREATININE 0.68* 03/18/2014 Lab Results Component Value Date K 3.3* 03/18/2014 Lab Results Component Value Date PLATELET 289 03/18/2014 Medications: Prior to Admission medications Medication Sig Start Date End Date Taking? Authorizing Provider cephALEXin (KEFLEX) 500 mg Capsule Take 1 capsule by mouth 4 times daily. 06/28/14 Kirill Saavedra MD magnesium oxide (MAG-OX) 400 mg Tablet Take 1 tablet by mouth daily. 06/14/14 Kirill Saavedra MD Lmjelcxex-Owcyfeozh-Kt-Mag-Sim [id number] mg/30 mL Mouthwash 5 mLs by Mucous Membrane route every 2 hours as needed. 05/31/14 Kirill Saavedra MD sucralfate (CARAFATE) 100 mg/mL Suspension Take 10 mLs by mouth 4 times daily. 05/31/14 Kirill Saavedra MD potassium chloride (K-DUR/KLOR-CON) 20 mEq Tab Sust.Rel. Particle/Crystal Take 1 tablet by mouth daily. 05/24/14 Kirill Saavedra MD bisacodyl (DULCOLAX) 5 mg Tablet, Delayed Release (E.C.) Take 5 mg by mouth daily as needed for Constipation. Provider, Historical polyethylene glycol (MIRALAX) 17 gram Powder in Packet Take 17 g by mouth 3 times daily as needed. Provider, Historical prochlorperazine (COMPAZINE) 10 mg Tablet Take 1 tablet by mouth every 6 hours as needed for Nausea. 04/12/14 Kirill Saavedra MD LORazepam (ATIVAN) 0.5 mg Tablet Take 1 tablet by mouth every 6 hours as needed for Anxiety (nausea). 04/12/14 Kirill Saavedra MD ERGOCALCIFEROL, VITAMIN D2, (VITAMIN D ORAL) Take 1 tablet by mouth. Provider, Historical ondansetron (ZOFRAN) 8 mg Tablet Take 1 tablet by mouth every 8 hours as needed for Nausea. 03/08/14Kirill Saavedra MD oxyCODONE (ROXICODONE) 5 mg Tablet Take 1 tablet by mouth every 4 hours as needed for Pain. 02/22/14 Vijay Padron MD levothyroxine (SYNTHROID) 175 mcg Tablet Take 175 mcg by mouth daily. Provider, Historical omeprazole (PRILOSEC) 20 mg Capsule, Delayed Release(E.C.) Take 20 mg by mouth daily. Provider, Historical hydrochlorothiazide (HYDRODIURIL) 25 mg Tablet Take 25 mg by mouth daily. Provider, Historical pravastatin (PRAVACHOL) 10 mg Tablet Take 10 mg by mouth daily. Provider, Historical aspirin 81 mg Tablet, Delayed Release (E.C.) Take 81 mg by mouth daily. Provider, Historical ++++ FOR OUTPATIENT SCAN'S: I have informed this patient that they require a road driver to be present and in the building to drive them home after this procedure. In the absence of a road driver, IR will not be able to perform this procedure and will need to reschedule. Pt verbalized understanding of these i nstructions during the pre-procedure education via phone. (initials) documented in this encounter Plan of Treatment Not on file documented as of this encounter Visit Diagnoses Not on filedocumented in this encounter Care Teams Furnace Filler Relationship Specialty Start Date End Date Ag Trent MD [address] [place] [id number] PCP - General 02/02/14 documented as of this encounter
--- OUTSIDE RECORDS SUMMARY | 2024-02-17 15:58 | XMS_ITS | Encounter Summary ---
Author Organization [facility] Address [facility] [place] [address] Care Team Providers Care Nurse Gynecology Name Role Phone Ag Trent MD Primary Care Provider [phone] Reason for Visit * Reason Comments Chemotherapy Taxol CY 4 day 15 Encounter Details Date Type Department Care Team (Late st Contact Info) Description 08/09/2014 10:00 AM EDT Infusion Hematology Oncology at [address] [phone] Breast cancer, left breast; Other specified prophylactic [...] Progress Notes * Marie Eli RN - 08/09/2014 11:28 AM EDT INFUSION THERAPY ADMINISTRATION NOTES DIAGNOSIS: Breast Cancer CYCLE #: 4 day 15 REASON FOR VISIT: Taxol SUBJECTIVE Narda offers no complaints. OBJECTIVE LAB DATA: WNL IV ACCESS: Mediport accessed at [facility] Pre administration: Chemotherapy orders independently verified for [...] 10 mg, Intravenous, ONCE, 1 dose, On Fri08/09/14 at 1045, Administer 30 minutes prior to PACLitaxel Given 08/09/2014 11:06 AM EDT 10 mg diphenhydrAMINE (BENADRYL) injection 25 mg 25 mg, Intravenous, ONCE, 1 dose, On Fri08/09/14 at 1045, Administer 30 minutes prior to PACLitaxel, Routine Given 08/09/2014 11:02 AM EDT 25 mg famotidine (PEPCID) injection 20 mg 20 mg, Intravenous, ONCE, 1 dose, On Fri08/09/14 at 1045, Administer 30 minutes prior to PACLitaxel Given 08/09/2014 11:11 AM EDT 20 mg heparin, porcine 100 unit/mL flush 500 Units 500 Units, Intravenous, ONCE PRN, Starting on Fri08/09/14 at 1018, Until Fri08/09/14 at 1809, Line Care, Refer to Intravenous (IV) Procedure: Accessing Implanted Vascular Access Devices (574) procedure and/or Intravenous (IV) Job Aid: Adult Flushing & Catheter Care (2588) job aid for additional information regarding guidelines and administration., Routine Given 08/09/2014 12:55 PM EDT 500 Units ondansetron (ZOFRAN) tablet 16 mg 16 mg, Oral, ONCE, 1 dose, On Fri08/09/14 at 1045, Administer prior to chemotherapy, Routine Given 08/09/2014 11:01 AM EDT 16 mg PACLitaxel (TAXOL) 154 mg in dextrose 5% Non-PVC 275.6667 mL chemo infusion 154 mg (rounded from 154.4 mg = 80 mg/m2/dose ? 1.93 m2 Treatment Plan BSA from Recorded weight), Intravenous, ONCE, 1 dose, On Fri08/09/14 at 1130, Administer over 60 Minutes New Bag 08/09/2014 11:50 AM EDT 154 mg 275 mL/hr sodium chloride 0.9 % flush 5-20 mL 5-20 mL, Intravenous, EVERY 1 MIN PRN, Starting on Fri08/09/14 at 1018, Until Fri08/09/14 at 1809, Line Care, Flush pertains to all indwelling lines. Flush per protocol found in the job aid using the link provided on this medication record. Refer to Intravenous (IV) Job Aid: Adult Flushing & Catheter Care (9651) job aid for additional information regarding guidelines and administration., Routine Given 08/09/2014 12:55 PM EDT 20 mLs documented in this encounter Care Teams Nurse Gynecology Relationship Specialty Start Date End Date Ag Trent MD [address] [place] [address] PCP - General 02/02/14 documented as of this encounter
--- OUTSIDE RECORDS SUMMARY | 2024-02-17 15:58 | XMS_ITS | Encounter Summary ---
Author Organization [facility] Address [facility] [place] [address] Care Team Providers Care Auto Service Writer Name Role Phone Ag Trent MD Primary Care Provider [phone] Encounter Details Date Type Department Care Team (Late st Contact Info) Description 06/17/2014 2:00 PM EDT Office Visit Hematology Oncology at [address] [phone] CLINIC, DR [facility] HEM/ONC Urban Serrano MD [facility] [place] [address] Discharge Disposition: Home Social History Tobacco Use [...] on filedocumented in this encounter Care Teams Auto Service Writer Relationship Specialty Start Date End Date Ag Trent MD [address] [place] [address] PCP - General 02/02/14 documented as of this encounter
--- OUTSIDE RECORDS SUMMARY | 2024-02-17 15:58 | XMS_ITS | Encounter Summary ---
Author Organization [facility] Address [facility] [place] [address] Care Team Providers Care Materials Planner Name Role Phone Ag Trent MD Primary Care Provider [phone] Reason for Visit * Reason Comments Chemotherapy Taxol - cycle 2, day 15 Encounter Details Date Type Department Care Team (Late st Contact Info) Description 06/28/2014 11:00 AM EDT Office Visit Hematology Oncology at [address] [phone] CLINIC, DR [facility] HEM/ONC Kirill Saavedra MD [facility] HEMATOLOGY [place] [address] Breast cancer, left breast; Other specified prophylactic [...] as of this encounter Progress Notes * Manuela Pena RN - 06/28/2014 11:53 AM EDT INFUSION THERAPY ADMINISTRATION NOTES DIAGNOSIS: Breast CA CYCLE #: 2, day 15 (dose 6) REASON FOR VISIT: Taxol Chemotherapy SUBJECTIVE Ms. Rivera is here for her Taxol chemotherapy. I took zofran 16mg this morning at 7:30. She is ready for her Taxol chemotherapy. OBJECTIVE LAB DATA: wbc 4.01, hgb 13.2, plts 348k, anc 2.51, mag 1.6 IV ACCESS: Mediport Right Chest, accessed at [facility] for labs At time of mediport de-access I observed that area around patient's mediport is reddened. There is a very small (0.1cm) hole top right (11:00) of her mediport. It appears that mediport is visible. Dr. Saavedra notified and assessed area. Prescription for Keflex 500mg QID sent to [facility] pharmacy, per patient request. Referral to [facility] Interventional Radiology for assessment. Pre administration: Chemotherapy orders independently verified for drug name, route, and dosage per patient's height, weight and BSA by Colten Pena RN and Luz Pizano Rph REACTIONS (DESCRIPTION, TIME, INTERVENTION AND EFFECTIVENESS) none ASSESSMENT Ms. Rivera was awake, alert and she tolerated treatment well. PLAN Return to clinic in one week for consideration of cycle 3 day 1. She will await appt date/time fromIR. She will start her Keflex today. She was reminded to call with any questions/concerns in the interim. documented in this encounter Plan of Treatment [...] 10 mg, Intravenous, ONCE, 1 dose, On Fri06/28/14 at 1115, Administer 30 minutes prior to PACLitaxel Given 06/28/2014 11:11 AM EDT 10 mg diphenhydrAMINE (BENADRYL) injection 25 mg 25 mg, Intravenous, ONCE, 1 dose, On Fri06/28/14 at 1115, Administer 30 minutes prior to PACLitaxel, Routine Given 06/28/2014 11:16 AM EDT 25 mg famotidine (PEPCID) injection 20 mg 20 mg, Intravenous, ONCE, 1 dose, On Fri06/28/14 at 1115, Administer 30 minutes prior to PACLitaxel Given 06/28/2014 11:21 AM EDT 20 mg heparin, porcine 100 unit/mL flush 500 Units 500 Units, Intravenous, ONCE PRN, Starting on Fri06/28/14 at 1051, Until Fri06/28/14 at 1711, Line Care, Refer to Intravenous (IV) Procedure: Accessing Implanted Vascular Access Devices (654) procedure and/or Intravenous (IV) Job Aid: Adult Flushing & Catheter Care (0291) job aid for additional information regarding guidelines and administration., Routine Given 06/28/2014 1:45 PM EDT 500 Units magnesium sulfate 1g in dextrose 5% 100mL 1 g, Intravenous, ONCE, 1 dose, On Fri06/28/14 at 1130, Administer over 60 Minutes Given 06/28/2014 11:45 AM EDT 1 g 100 mL/hr PACLitaxel (TAXOL) 154 mg in dextrose 5% Non-PVC 275.6667 mL chemo infusion 154 mg (rounded from 154.4 mg = 80 mg/m2/dose ? 1.93 m2 Treatment Plan BSA from Recorded weight), Intravenous, ONCE, 1 dose, On Fri06/28/14 at 1215, Administer over 60 Minutes New Bag 06/28/2014 12:42 PM EDT 154 mg 276 mL/hr sodium chloride 0.9 % flush 5-20 mL 5-20 mL, Intravenous, EVERY 1 MIN PRN, Starting on Fri06/28/14 at 1051, Until Fri06/28/14 at 1711, Line Care, Flush pertains to all indwelling lines. Flush per protocol found in the job aid using the link provided on this medication record. Refer to Intravenous (IV) Job Aid: Adult Flushing & Catheter Care (5704) job aid for additional information regarding guidelines and administration., Routine Given 06/28/2014 1:45 PM EDT 20 mLs documented in this encounter Care Teams Materials Planner Relationship Specialty Start Date End Date Ag Trent MD [address] [place] [address] PCP - General 02/02/14 documented as of this encounter
--- OUTSIDE RECORDS SUMMARY | 2024-02-17 15:58 | XMS_ITS | Encounter Summary ---
Author Organization [facility] Address [facility] [place] [address] Care Team Providers Care Double End Production Grinder Name Role Phone Ag Trent MD Primary Care Provider [phone] Encounter Details Date Type Department Care Team (Latest Contact Info) Description 08/16/2014 8:00 AM EDT Ancillary Appointment Radiation Oncology at [address] [phone] Clau Alfonso MD [facility] [place] [address] Breast cancer, female, left Social History Tobacco [...] as of this encounter Progress Notes * Clau Alfonso MD - 08/16/2014 5:26 PM EDT Here for reCTsim, as beam films taken yesterday (from CTsim prior to chemo) did not line up as wellas would like, probably due to ongoing changes in L breast related to getting further out from surgery & maybe from weight change. Sim: Custom cushion w/breast bd immobilization; flat bbs on L breast lumpectomy scar; CT through neck & chest showed heart to approach L chest wall, & so she was then instructed in deep inspiration breath hold (DIBH), & 2nd CT through neck & chest done w/DIBH; 3D xrt planned. She tolerated sim well, w/o problem. Tx Plan: 3D xrt. Beam films 08/29/14, start xrt 08/30/14. documented in this encounter Plan of Treatment Not on file documented as of this encounter Visit Diagnoses Diagnosis Breast cancer, female, left documented in this encounter Care Teams Double End Production Grinder Relationship Specialty Start Date End Date Ag Trent MD [address] [place] [address] PCP - General 02/02/14 documented as of this encounter
--- OUTSIDE RECORDS SUMMARY | 2024-02-17 15:58 | XMS_ITS | Encounter Summary ---
Author Organization [facility] [place] [address] Care Team Providers Care Environmental Marketing Representative Name Role Phone Ag Trent MD Primary Care Provider [phone] Encounter Details Date Type Department Care Team (Latest Contact Info) Description 09/12/2014 Unscheduled Encounter Radiation Oncology at [address] [phone] Susana Mohamud RN Cough, persistent Social History Tobacco Use Types Packs/Day Years [...] Sign Reading Time Taken Comments Blood Pressure 114/69 09/12/2014 11:40 AM EDT Pulse 72 09/12/2014 11:40 AM EDT Temperature 36.9 ??C (98.4 ??F) 09/12/2014 11:40 AM E DT Respiratory Rate 18 09/12/2014 11:40 AM EDT Oxygen Saturation 99% 09/12/2014 11:40 AM EDT Inhaled Oxygen Concentration - - Weight 80.9 kg (178 lb 6.4 oz) 09/12/2014 11:40 AM EDT Height - - Body Mass Index 31.22 08/09/2014 9:02 AM EDT documented in this encounter Progress Notes * Susana Mohamud, RN - 09/12/2014 11:55 AM EDT Radiation Oncology Nursing on Treatment Note I was asked to see this patient today by the radiation therapy staff as they audibly heard her wheezing during their encounter with her. Patient is also requesting to be seen by nursing today. Patient has received 1800 cGy To the left breast, scax For treatment of breast cancer.. Side effects that patient is experiencing: Patient reports that Friday she was experiencing more sharp substernal knife like pain rating it around level 7. She states that she did contact her PCP office and was told to call them back on Friday if she continued to have difficulties. She reports thatshe did complete the course of antibiotics that they had prescribed for her. Today she states that the pain has improved and is more like level 3. She has had an increased tight, nonproductive cough which she intermittently experiences throughout this encounter. She states that she can hear herselfwheeze at times. Denies having any fevers. She says that she already has a call into her PCP officetoday to let them know that she is not feeling better overall but says that she had also spoken with someone from the [facility] who recommended that she talk with her radiation oncologist as well as her PCP about these symptoms. I updated Dr. Alfonso regarding patient current status as above. She encourages patient to follow upwith her PCP regarding these respiratory symptoms. Assessment: Patient is experiencing discomfort in chest, increased tight nonproductive cough. VSS. Afebrile. Anticipatory guidance/ interventions: Instructed patient to follow up with her PCP and to call themback this afternoon if she does not hear from them. She states that she will follow through with this. Plan: Patient to follow up with PCP. She will be seen by Dr. Alfonso tomorrow for on treatment visit. documented in this encounter Plan of Treatment Not on file documented as of this encounter Visit Diagnoses Diagnosis Cough, persistent Cough documented in this encounter Care Teams Environmental Marketing Representative Relationship Specialty Start Date End Date Ag Trent MD [address] [place] [address] PCP - General 02/02/14 documented as of this encounter
--- OUTSIDE RECORDS SUMMARY | 2024-02-17 15:58 | XMS_ITS | Encounter Summary ---
Author Organization [facility] Address [facility] [place] [address] Care Team Providers Care Bottom Stop Attacher Name Role Phone Ag Trent MD Primary Care Provider [phone] Encounter Details Date Type Department Care Team (Late st Contact Info) Description 08/25/2014 Notes Only Hematology [place] [phone] Kirill Saavedra MD [facility] DR [place] [address] Social History Tobacco Use Types Packs/Day Years [...] Progress Notes * Yulissa Mcguire RN - 08/25/2014 4:05 PM EDT Research Study Note; Week 21 phone call 08/25/14 [place] A [id number]: Effects of an Exercise Intervention on Physical Activity during Chemotherapy for Patients with Early Stage Breast Cancer PC to Narda to obtain exercise log data from 08/16/14 - 08/22/14. Narda reported that she exercised for 56 min using her hula hoop and walking at a fairly light pace. Two of the days she felt very sleep and tired and did not exercise. Narda is questioning if her pedometer is measuring her steps correctly as she had 5512 steps a day when she walked very little. A new pedometer was mailed to Narda leeroy ames along with blank log sheets. Narda also reported that she has felt a little less depressed this past week. Her daily average steps were 3,219. She is willing to continue on the study. documented in this encounter Plan of Treatment Not on file documented as of this encounter Visit Diagnoses Not on filedocumented in this encounter Care Teams Bottom Stop Attacher Relationship Specialty Start Date End Date Ag Trent MD [address] [place] [address] PCP - General 02/02/14 documented as of this encounter
--- OUTSIDE RECORDS SUMMARY | 2024-02-17 15:58 | XMS_ITS | Encounter Summary ---
Author Organization [facility] Address [facility] [place] [address] Care Team Providers Care Online User Experience Strategist Name Role Phone Ag Trent MD Primary Care Provider [phone] Reason for Visit * Reason Onset Date Comments New Medication Request 06/14/2014 carafate Encounter Details Date Type Department Care Team (Late st Contact Info) Description 06/14/2014 Telephone Hematology Oncology at [address] [phone] Ashley Elena RN New Medication Request (carafate) Social History Tobacco Use Types Packs/Day Years [...] Telephone Encounter - Ashley Elena RN - 06/16/2014 11:46 AM EDT Received message back from alessandra Laboy. She reports that carafate is not covered. No further information provided. * Telephone Encounter - Ashley Elena RN - 06/14/2014 9:25 AM EDT Phone call to [facility] pharmacy to follow up on status of carafate prescription.Spoke to pharmacistNarda. She admits she is unsure why prescription has not been filled. She is able to determine that generic form is no longer available or on back order and when she tries to run brand name (caraf ate) she gets message that it is not on formulary. Narda admits that she needs to look into this. documented in this encounter Plan of Treatment Not on file documented as of this encounter Visit Diagnoses Not on filedocumented in this encounter Care Teams Online User Experience Strategist Relationship Specialty Start Date End Date Ag Trent MD [address] [place] [address] PCP - General 02/02/14 documented as of this encounter
--- OUTSIDE RECORDS SUMMARY | 2024-02-17 15:58 | XMS_ITS | Encounter Summary ---
Author Organization [facility] Address [facility] [place] [address] Care Team Providers Care Biodiesel Plant Operations Engineer Name Role Phone Ag Trent MD Primary Care Provider [phone] Encounter Details Date Type Department Care Team (Late st Contact Info) Description 07/27/2014 Notes Only [place]ematology [place] [address] Kirill Saavedra MD [facility] [address] HEMATOLOGY AND ONCOLOGY [place] [id number] Social History Tobacco Use Types Packs/Day Years [...] Progress Notes * Yulissa Mcguire RN - 07/27/2014 1:03 PM EDT Research Study Note; Week 17 phone call 07/27/14 Control arm A [id number]: Effects of an Exercise Intervention on Physical Activity during Chemotherapy for Patients with Early Stage Breast Cancer Call to Narda to obtain exercise log data from 07/19/14 - 07/25/14. Narda walked for exercise 1 day/8min and danced 5 days/total of 38 min. Her daily average steps were 3,675. She was not sure if the pedometer was working with her dancing steps and she therefore did not document before and after dancing x 4 of those days. She stated she felt weak some days and hyper some days. Narda thinks being hyper is related to steroid medication given with her chemo treatment. Feeling scale varied from fairly bad to fairly good during exercise. Narda stated she has two more chemo treatments then has two weeks break and then will have radiation tx. documented in this encounter Plan of Treatment Not on file documented as of this encounter Visit Diagnoses Not on filedocumented in this encounter Care Teams Biodiesel Plant Operations Engineer Relationship Specialty Start Date End Date Ag Trent MD [address] [place] [address] PCP - General 02/02/14 documented as of this encounter
--- OUTSIDE RECORDS SUMMARY | 2024-02-17 15:58 | XMS_ITS | Encounter Summary ---
Author Organization [facility] Address [facility] [place] [address] Care Team Providers Care Clinical Consultant Name Role Phone Ag Trent MD Primary Care Provider [phone] Encounter Details Date Type Department Care Team (Late st Contact Info) Description 07/19/2014 11:00 AM EDT Office Visit Hematology Oncology at [address] [phone] CLINIC, DR [facility] HEM/ONC Kirill Saavedra MD [facility] [place] [address] Breast cancer, left breast; Other specified prophylactic [...] as of this encounter Progress Notes * Rina Brumfield RN - 07/19/2014 12:00 PM EDT TIME TREATMENT STARTED: 11:00 TIME TREATMENT ENDED: 1344 Narda Rivera, 63 y.o. female with diagnosis of breast cancer is here for chemotherapy infusion of paclitaxel. PROTOCOL: paclitaxel CYCLE: 3 DAY: 15 S: Pt. offers no complaints at this time. O: Chemotherapy orders independently verified for correct drug name, route and dosage per patient'sheight, weight and BSA by Rina Brumfield RN and onsite pharmacist Dexamethasone 10mg IV @ 11:33 Diphenhydramine 25mg IV @ 11:31 Famotidine 20mg IV @ 11:28 Ondansetron 16mg PO @ 11:37 Lorazepam 0.5mh PO/IV -- pt declined Magnesium sulfate 1g IV; start time: 11:36; stop time: 12:36 Potassium chloride 20mEq; start time: 11:37; stop time: 12:37 Paclitaxel 154mg IV; start time: 12:30; stop time: 13:38 REACTIONS (DESCRIPTION, TIME, INTERVENTION AND EFFECTIVENESS) None A: Pt. Tolerated treatment well. Narda Rivera confirms that all questions and issues have been addressed. P: Return to clinic 07/26 documented in this encounter Plan of Treatment [...] 10 mg, Intravenous, ONCE, 1 dose, On Fri07/19/14 at 1130, Administer 30 minutes prior to PACLitaxel Given 07/19/2014 11:33 AM EDT 10 mg diphenhydrAMINE (BENADRYL) injection 25 mg 25 mg, Intravenous, ONCE, 1 dose, On Fri07/19/14 at 1130, Administer 30 minutes prior to PACLitaxel, Routine Given 07/19/2014 11:31 AM EDT 25 mg famotidine (PEPCID) injection 20 mg 20 mg, Intravenous, ONCE, 1 dose, On Fri07/19/14 at 1130, Administer 30 minutes prior to PACLitaxel Given 07/19/2014 11:28 AM EDT 20 mg heparin, porcine 100 unit/mL flush 500 Units 500 Units, Intravenous, ONCE PRN, Starting on Fri07/19/14 at 1107, Until Fri07/19/14 at 1607, Line Care, Refer to Intravenous (IV) Procedure: Accessing Implanted Vascular Access Devices (794) procedure and/or Intravenous (IV) Job Aid: Adult Flushing & Catheter Care (4049) job aid for additional information regarding guidelines and administration., Routine Given 07/19/2014 1:40 PM EDT 500 Units magnesium sulfate 1g in dextrose 5% 100mL 1 g, Intravenous, ONCE, 1 dose, On Fri07/19/14 at 1115, Administer over 60 Minutes, Mg 1.7 Given 07/19/2014 11:36 AM EDT 1 g 100 mL/hr ondansetron (ZOFRAN) tablet 16 mg 16 mg, Oral, ONCE, 1 dose, On Fri07/19/14 at 1130, Administer prior to chemotherapy, Routine Given 07/19/2014 11:37 AM EDT 16 mg PACLitaxel (TAXOL) 154 mg in dextrose 5% Non-PVC 275.6667 mL chemo infusion 154 mg (rounded from 154.4 mg = 80 mg/m2/dose ? 1.93 m2 Treatment Plan BSA from Recorded weight), Intravenous, ONCE, 1 dose, On Fri07/19/14 at 1230, Administer over 60 Minutes New Bag 07/19/2014 12:30 PM EDT 154 mg 276 mL/hr potassium chloride 20 mEq in 100 mL 20 mEq, Intravenous, ONCE, 1 dose, On Fri07/19/14 at 1115, Administer over 60 Minutes, Central line use only. Serum potassium 3.0 Given 07/19/2014 11:37 AM EDT 20 mEq 100 mL/hr sodium chloride 0.9 % flush 5-20 mL 5-20 mL, Intravenous, EVERY 1 MIN PRN, Starting on Fri07/19/14 at 1107, Until Fri07/19/14 at 1607, Line Care, Flush pertains to all indwelling lines. Flush per protocol found in the job aid using the link provided on this medication record. Refer to Intravenous (IV) Job Aid: Adult Flushing & Catheter Care (2410) job aid for additional information regarding guidelines and administration., Routine Given 07/19/2014 1:39 PM EDT 20 mLs documented in this encounter Care Teams Clinical Consultant Relationship Specialty Start Date End Date Ag Trent MD [address] [place] [address] PCP - General 02/02/14 documented as of this encounter
--- OUTSIDE RECORDS SUMMARY | 2024-02-17 15:58 | XMS_ITS | Encounter Summary ---
Author Organization [facility] Address [facility] [place] [address] Care Team Providers Care Dinkey Engine Operator Name Role Phone Ag Trent MD Primary Care Provider [phone] Reason for Visit * Reason Comments Breast Cancer chemotherapy Encounter Details Date Type Department Care Team (Late st Contact Info) Description 07/12/2014 11:00 AM EDT Office Visit Hematology Oncology at [address] [phone] CLINIC, DR [facility] HEM/ONC Kirill Saavedra MD [facility] [place] [address] Malignant neoplasm of left female breast (BREAST CANCER); Breast cancer, left breast; Other specified prophylactic or treatment measure Discharge [...] encounter Progress Notes * Iman Liang - 07/12/2014 10:56 AM EDT INFUSION THERAPY ADMINISTRATION NOTES DIAGNOSIS: Breast Ca CYCLE #: 3 day 8 REASON FOR VISIT: SUBJECTIVE Narda offers no complaints. OBJECTIVE LAB DATA: WNL IV ACCESS: Right mediport BLOOD RETURN: yes + ANY S/S OF INFECTION/EXTRAVASATIONS: port red/bruised noted during disconnect IV FLUSHED WITH: 20 cc normal saline & 500 cc heparin IV DISCONTINUED: yes Pre administration: Chemotherapy orders independently verified for drug name, route, and dosage per patient's height, weight and BSA by FILOMENA Antoine and FILOMENA Morgan REACTIONS (DESCRIPTION, TIME, INTERVENTION AND EFFECTIVENESS) none [...] 10 mg, Intravenous, ONCE, 1 dose, On Fri07/12/14 at 1130, Administer 30 minutes prior to PACLitaxel Given 07/12/2014 11:25 AM EDT 10 mg diphenhydrAMINE (BENADRYL) injection 25 mg 25 mg, Intravenous, ONCE, 1 dose, On Fri07/12/14 at 1130, Administer 30 minutes prior to PACLitaxel, Routine Given 07/12/2014 11:19 AM EDT 25 mg famotidine (PEPCID) injection 20 mg 20 mg, Intravenous, ONCE, 1 dose, On Fri07/12/14 at 1130, Administer 30 minutes prior to PACLitaxel Given 07/12/2014 11:22 AM EDT 20 mg heparin, porcine 100 unit/mL flush 500 Units 500 Units, Intravenous, ONCE PRN, Starting on Fri07/12/14 at 1106, Until Fri07/12/14 at 1810, Line Care, Refer to Intravenous (IV) Procedure: Accessing Implanted Vascular Access Devices (504) procedure and/or Intravenous (IV) Job Aid: Adult Flushing & Catheter Care (6653) job aid for additional information regarding guidelines and administration., Routine Given 07/12/2014 1:10 PM EDT 500 Units magnesium sulfate 1g in dextrose 5% 100mL 1 g, Intravenous, ONCE, 1 dose, On Fri07/12/14 at 1130, Administer over 60 Minutes Given 07/12/2014 11:29 AM EDT 1 g 100 mL/hr ondansetron (ZOFRAN) tablet 16 mg 16 mg, Oral, ONCE, 1 dose, On Fri07/12/14 at 1130, Administer prior to chemotherapy, Routine Given 07/12/2014 11:19 AM EDT 16 mg PACLitaxel (TAXOL) 154 mg in dextrose 5% Non-PVC 275.6667 mL chemo infusion 154 mg (rounded from 154.4 mg = 80 mg/m2/dose ? 1.93 m2 Treatment Plan BSA from Recorded weight), Intravenous, ONCE, 1 dose, On Fri07/12/14 at 1230, Administer over 60 Minutes New Bag 07/12/2014 12:07 PM EDT 154 mg 276 mL/hr Implanted Port sodium chloride 0.9 % flush 5-20 mL 5-20 mL, Intravenous, EVERY 1 MIN PRN, Starting on Fri07/12/14 at 1106, Until Fri07/12/14 at 1810, Line Care, Flush pertains to all indwelling lines. Flush per protocol found in the job aid using the link provided on this medication record. Refer to Intravenous (IV) Job Aid: Adult Flushing & Catheter Care (2294) job aid for additional information regarding guidelines and administration., Routine Given 07/12/2014 1:11 PM EDT 20 mLs documented in this encounter Care Teams Dinkey Engine Operator Relationship Specialty Start Date End Date Ag Trent MD [address] [place] [address] PCP - General 02/02/14 documented as of this encounter
--- OUTSIDE RECORDS SUMMARY | 2024-02-17 15:58 | XMS_ITS | Encounter Summary ---
Author Organization [facility] Address [facility] [place] [address] Care Team Providers Care Men'S Basketball Coach Name Role Phone Ag Trent MD Primary Care Provider [phone] Encounter Details Date Type Department Care Team (Late st Contact Info) Description 08/17/2014 Notes Only Hematology [place] [address] Kirill Saavedra MD [facility] [address] [place] [address] Social History Tobacco Use Types Packs/Day Years [...] Progress Notes * Yulissa Mcguire RN - 08/18/2014 8:46 AM EDT Research Study Note; Week 20 phone call 08/17/14 Control arm A [id number]: Effects of an Exercise Intervention on Physical Activity during Chemotherapy for Patients with Early Stage Breast Cancer Call to Narda to obtain exercise log data from 08/09/14 - 08/15/14. Narda reported that she now have finished her chemo and she had walked for exercise every day; total of 74 min for the week. Her daily average steps were 3,545. On the exertion scale she recorded 12 - 14 which is a mixture of moderate and brisk and on the feeling scale she recorded feeling neutral of bad. Narda also shared that shewas feeling depressed. I encouraged her to contact one of her providers. She had contacted the [employer] and is expecting a call back from them. documented in this encounter Plan of Treatment Not on file documented as of this encounter Visit Diagnoses Not on filedocumented in this encounter Care Teams Men'S Basketball Coach Relationship Specialty Start Date End Date Ag Trent MD [address] [place] [address] PCP - General 02/02/14 documented as of this encounter
--- OUTSIDE RECORDS SUMMARY | 2024-02-17 15:58 | XMS_ITS | Encounter Summary ---
Author Organization [facility] Address [facility] [place] [address] [place] [address] Care Team Providers Care Trim Die Maker Name Role Phone Ag Trent MD Primary Care Provider [phone] Reason for Visit * Reason Comments Follow-up Encounter Details Date Type Department Care Team (Late st Contact Info) Description 07/26/2014 10:00 AM EDT Follow-Up Hematology/Oncology at [address] [phone] Kirill Saavedra MD [facility] DR [place] [address] Breast cancer, left breast; Hypokalemia; Fatigue Discharge Disposition: Home Social History Tobacco [...] Sign Reading Time Taken Comments Blood Pressure 131/72 07/26/2014 10:06 AM EDT Pulse 88 07/26/2014 10:06 AM EDT Temperature 37 ??C (98.6 ??F) 07/26/2014 10:06 AM EDT Respiratory Rate 16 07/26/2014 10:06 AM EDT Oxygen Saturation 99% 07/26/2014 10:06 AM EDT Inhaled Oxygen Concentration - - Weight 80.3 kg (177 lb) 07/26/2014 10:06 AM EDT Height 161 cm (5' 3.39) 07/26/2014 10:06 AM EDT Body Mass Index 30.97 07/26/2014 10:06 AM EDT documented in this encounter Progress Notes * Kirill Saavedra MD - 07/26/2014 10:54 AM EDT Diagnosis: 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 Subjective:I feel more tired HPI: Ms. Narda Rivera is 63 y.o. female Referred to us for consultation by Dr. Cohen on new diagnosis of breast cancer. She initially presenteda mass in her upper outer left breast with calcificationson a screening mammogram in December 2013.The main mass wasbiopsied showing infiltrating ductal and lobular carcinoma, ER positive, [id number]. MRI was then performed that showed the mass with multiple small satellites around it. Mrs. Rivera underwent left partial mastectomy and sentinel lymph nodebiopsy on February 23, 2014. Postoperative course was uneventful. Interval history: Ms. Rivera is in clinic today for followup appointment and 10- th dose of weekly Taxol. There was less nausea last week but she feels more exhausted. Mrs. Rivera exercises the every other day. Rash and [...] or inguinal areas. Neurologic: Normal Vitals BP 131/72 Pulse 88 Temp(Src) 37 ??C (98.6 ??F) (Oral) Resp 16 Ht 161 cm (5' 3.39) Wt 80.287 kg (177 lb) BMI 30.97 kg/m2 SpO2 99% Karnofsky score is 90 [...] slide reconstruction) MICROCALCIFICATIONS: Present in nonneoplastic tissue ER/ME/HER2: ER/ME/Her2 Comment: Please see prior biopsy [id number]. HER2 FISH will be repeated on this [...] cancer cells with immunostaining) Stain Intensity: Strong ME immunoreactivity: Positive (11-90% cancer cells with immunostaining) Stain Intensity: Strong NEGATIVE FOR HER2/DEL AMPLIFICATION Labs: Cultures 8.8, BUN 11, creatinine 0.7, total protein 6.8, albumin 3.2, alkaline phosphatase 83, AST 23, ALT 29, potassium 3.3, magnesium 1.9. WBC is 3.88, hemoglobin 12.4, platelet count 373, ANC 2.41. Imagin03/15/14, CT scan of chest, abdomen and pelvis: No evidence of abdominal pelvic metastatic disease.No evidence of thoracic metastatic disease. 8 cm fluid collection in the left breast. This likely reflects postsurgical change. 03/15/14 echocardiogram: normal biventricular size and systolic function; estimated LVEF 65%. 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 Will proceed with 10-th dose of weekly Taxol today 2. Hypokalemia/hypomagnesimia: potassium 3.3 today, Magnesium 1.9. y Continue potassium and magnesium PO supplementation. Potassium [...] of breast (female), unspecified site Hypokalemia Hypopotassemia Fatigue Other malaise and fatigue documented in this encounter Care Teams Trim Die Maker Relationship Specialty Start Date End Date Ag Trent MD [address] [place] [address] PCP - General 02/02/14 documented as of this encounter
--- OUTSIDE RECORDS SUMMARY | 2024-02-17 15:58 | XMS_ITS | Encounter Summary ---
Author Organization [facility] Address [facility] [place] [address] Care Team Providers Care Airplane Gas Tank Liner Assembler Name Role Phone Ag Trent MD Primary Care Provider [phone] Encounter Details Date Type Department Care Team (Late st Contact Info) Description 09/01/2014 Notes Only Radiation Oncology at [address] [phone] Evette Waddell, RN Social History Tobacco Use [...] Progress Notes * Evette Yu RN - 09/01/2014 2:39 PM EDT Radiation Oncology Nurse Note I checked in with patient to see how she is doing today. Yesterday she called c/o coughing and mildchest pain and she was planning to see PCP.>>> see 08/31/14 note for details She confirms that she saw PCP yesterday . She was prescribed Azythromycin 2 tabs yesterday and 1 tab daily for the next 4 days. She, PCP, ordered a CXR however she called patient explaining she wantsa CT instead. She was informed that there was something her lab work that made her concerned for PE. Patient is still waiting for CT appt details. She grades her mid chest pain at this moment a 1/10, however it was a 6 last night. She also has general achiness all over and tylenol is helpful for that. She feels that her cough has improved ( no coughing during this visit). Her breathing is regular and she is in no distress. She states that she has an appt to see our airplane gas tank liner assembler, Trish tomorrow, however she prefers to wait and she her next week, Friday. Plan: She was instructed to call clinic, PCP or seek emergent medical attention if chest pain gets worse and to continue following PCP's direction in investigation of this pain. I will send a message to Trish and secretaries in moving her nutrition appt. documented in this encounter Plan of Treatment Not on file documented as of this encounter Visit Diagnoses Not on filedocumented in this encounter Care Teams Airplane Gas Tank Liner Assembler Relationship Specialty Start Date End Date Ag Trent MD [address] [place] [address] PCP - General 02/02/14 documented as of this encounter
--- OUTSIDE RECORDS SUMMARY | 2024-02-17 15:59 | XMS_ITS | Encounter Summary ---
Author Organization [facility] Address [facility] [place] [address] Care Team Providers Care Transition Assistant Name Role Phone Ag Trent MD Primary Care Provider [phone] Encounter Details Date Type Department Care Team (Latest Contact Info) Description 03/22/2014 10:04 AM EST - 03/22/2014 11:59 PM [facility] Hospital Encounter [place]ology [place] [phone] CLINIC, Kirill St MD [facility] DR HEMATOLOGY [place] [address] Breast cancer, female, left; Patient in cancer related research study; Malignant neoplasm of left female breast Discharge Disposition: Home Social History Tobacco Use Types Packs/Day Years Used Date Smoking Tobacco: Never Alcohol Use Standard Drinks/Week Comments [...] (E.C.) Take 81 mg by mouth daily. ondansetron (ZOFRAN) 8 mg Tablet Take 1 tablet by mouth every 8 hours as needed for Nausea. 60 tablet 1 03/08/2014 10/04/2014 dexamethasone (DECADRON) 4 mg Tablet Take 1 tablet by mouth 2 times daily as needed. Take twice daily x 2 days following chemo, then twice daily as needed 180 tablet 1 03/08/2014 05/10/2014 dronabinol (MARINOL) 5 mg Capsule Take 1 capsule by mouth 2 times daily as needed. 60 capsule 3 03/08/2014 05/10/2014 oxyCODONE (ROXICODONE) 5 mg Tablet Take 1 [...] Procedure Name Priority Date/Time Associated Diagnosis Comments INSULIN, TOTAL Routine 03/22/2014 10:12 AM EST Malignant neoplasm of left female breast CRP, CARDIAC RISK (HS CRP) Routine 03/22/2014 10:12 AM EST Breast cancer, female, left Patient in cancer related research study documented in this encounter Results * Insulin, total (03/22/2014 10:12 AM EST) Pathologist [facility] Insulin Not Perf 2.6 - 24.9 [facility] Comment:Unable to quantitate due to sample hemolysis. Sample redraw suggested. Blood specimen (specimen) 03/22/2014 10:12 AM EST 03/22/2014 10:14 AM EST Narrative Resulting Agency Comment Spec In Lab Kirill Saavedra MD CHEMISTRY ORDERABLES [facility] * High Sensitivity CRP (03/22/2014 10:12 AM EST) Pathologist [facility] C-Reactive Protein High Sensitivity 10.5 mg/L [facility] Comment: Interpretations: 1) For accurate cardiac risk [...] and Cardiovascular Disease. ??Circulation 2003; 107:499-511 2. Ridker PM. ??Clinical applications of C-reactive protein for cardiovascular disease detection and prevention. ??Circulation 2003; 107:363-369 Blood specimen (specimen) 03/22/2014 10:12 AM EST 03/22/2014 10:14 AM EST Narrative Resulting Agency Comment Spec In Lab Kirill Saavedra MD CHEMISTRY ORDERABLES Performing Organization Address City/State/[facility] Co ak Phone Number [facility] documented in this encounter Visit Diagnoses Diagnosis Breast cancer, female, left Patient in cancer related research study Malignant neoplasm of left female breast Malignant neoplasm of breast (female), unspecified site documented in this encounter Care Teams Transition Assistant Relationship Specialty Start Date End Date Ag Trent MD [address] [place] [address] PCP - General 02/02/14 documented as of this encounter
--- OUTSIDE RECORDS SUMMARY | 2024-02-17 15:59 | XMS_ITS | Encounter Summary ---
Author Organization [facility] Address [facility] [place] [address] Care Team Providers Care Instrumentation Tech Name Role Phone Ag Trent MD Primary Care Provider [phone] Encounter Details Date Type Department Care Team (Late st Contact Info) Description 03/18/2014 Orders Only [place] [address] Kirill Saavedra MD [facility] [address] HEMATOLOGY [place] [address] Malignant neoplasm of left female breast Social History Tobacco Use Types Packs/Day [...] of this encounter Results * Insulin, total (03/22/2014 10:12 AM EST) Insulin Not Perf 2.6 - 24.9 [facility] Comment:Unable to quantitate due to sample hemolysis. Sample redraw suggested. Blood specimen (specimen) 03/22/2014 10:12 AM EST 03/22/2014 10:14 AM EST Narrative Resulting Agency Comment Spec In Lab Kirill Saavedra MD CHEMISTRY ORDERABLES [facility] documented in this encounter Visit Diagnoses Diagnosis Malignant neoplasm of left female breast Malignant neoplasm of breast (female), unspecified site documented in this encounter Care Teams Instrumentation Tech Relationship Specialty Start Date End Date Ag Trent MD [address] [place] [address] PCP - General 02/02/14 documented as of this encounter
--- OUTSIDE RECORDS SUMMARY | 2024-02-17 15:59 | XMS_ITS | Encounter Summary ---
Author Organization [facility] Address [facility] [place] [address] Care Team Providers Care Senior Principal Name Role Phone Ag Trent MD Primary Care Provider [phone] Reason for Visit * Reason Onset Date Comments Medication Refill 04/12/2014 Appeal for den ial of neulasta injection through [employer] Encounter Details Date Type Department Care Team (Late st Contact Info) Description 04/12/2014 Telephone Hematology Oncology at [address] [phone] Ashley Elena, ceramic mold designer Refill (Appeal for denial of neulasta injection through [employer]) Social History Tobacco Use Types Packs/Day Years [...] Telephone Encounter - Ashley Elena RN - 04/12/2014 10:38 AM EST Phone call to [employer] re: appeal of their denial of neulasta injection, as she does appear to meet the criteria for the medication. Automated instructions to mail letter of appeal to [employer], [address] [address], [place], [place] [address]. Letter of appeal mail to address given. documented in this encounter Plan of Treatment Not on file documented as of this encounter Visit Diagnoses Not on filedocumented in this encounter Care Teams Senior Principal Relationship Specialty Start Date End Date Ag Trent MD [address] [place] [address] PCP - General 02/02/14 documented as of this encounter
--- OUTSIDE RECORDS SUMMARY | 2024-02-17 15:59 | XMS_ITS | Encounter Summary ---
Author Organization [facility] [place] [address] Care Team Providers Care Inside Horticultural Specialty Grower Name Role Phone Ag Trent MD Primary Care Provider [phone] Encounter Details Date Type Department Care Team (Late st Contact Info) Description 04/25/2014 12:30 PM EST Follow-Up Hematology Oncology at [address] [phone] Meenaskhi Sanchez, LEAD WEB DEVELOPER [address] [facility] [place] [address] Malignant neoplasm of left female breast (BREAST [...] Sign Reading Time Taken Comments Blood Pressure 124/63 04/25/2014 11:37 AM EST Pulse 63 04/25/2014 11:37 AM EST Temperature 36.7 ??C (98.1 ??F) 04/25/2014 11:[address] Respiratory Rate 16 04/25/2014 11:37 AM EST Oxygen Saturation 96% 04/25/2014 11:37 AM EST Inhaled Oxygen Concentration - - Weight 86.4 kg (190 lb 8 oz) 04/25/2014 11:37 AM EST Height 161 cm (5' 3.39) 04/25/2014 11:37 AM EST Body Mass Index 33.34 04/25/2014 11:37 AM EST documented in this encounter Progress Notes * Meenakshi Sanchez, LEAD WEB DEVELOPER - 04/25/2014 4:45 PM EST Diagnosis: 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 Subjective:I felt nauseated, but I did not throw up HPI: Mrs. Narda Rivera is 63 y.o. female Referred to us for consultation by Dr. Cohen on new diagnosis of breast cancer. She initially presented a mass in her upper outer left breast with calcifications on a screening mammogram in December 2013.The main mass was biopsied showing infiltrating ductal and lobular carcinoma, ER positive, [id number]. MRI was then performed that showed the mass with multiple small satellites around it. Mrs. Rivera underwent left partial mastectomy and sentinel lymph node biopsy on February 23, 2014. Postoperative course was uneventful. Interval history: Mrs. Rivera is in clinic today for followup appointment and third cycle of chemotherapy. She uses marijuana brownies which help to control nausea. Mrs. Rivera denies any pain, fever or chills. She reports constipation. No shortness of breath or leg swelling. She continues to exercise 10-15 minutes a day. PMH:Hypertension, hypercholesterolemia, hypothyroidism, osteoarthritis, history of knee replacement, multiple oral surgeries Patient Active Problem List Diagnosis ??? Other specified prophylactic or treatment measure ??? Malignant neoplasm of left female breast (BREAST CANCER) Social History: no interval changes Family History: no interval changes OBGYN History: no interval changes Allergies: oxycodone Medications: Reviewed Review of Systems: Constitutional: Negative for fever, chills, activity change, fatigue and unexpected weight change. HEENT: Negative for sore throat, mouth sores and trouble swallowing. Eyes: Negative. Respiratory: Negative for cough, shortness of breath and wheezing. Cardiovascular: Negative for chest pain, palpitations and leg swelling. Gastrointestinal: positive for nausea, constipation, negative for vomiting, abdominal pain, diarrhea and abdominal distention. Genitourinary: Negative for dysuria and difficulty urinating. Musculoskeletal: Negative. Skin: Negative. Neurological: Negative. Hematological: Negative for adenopathy. 10 systems were reviewed and otherwise negative PE: General: AAAx3, in NAD Head: Normocephalic, without obvious abnormality, atraumatic Eyes: PERRL, conjunctiva/corneas clear, EOM's intact Nose: Nares normal, septum midline, mucosa normal, no drainage or sinus tenderness Throat: Lips, mucosa, and tongue normal; teeth and gums normal Neck: Supple, symmetrical, trachea midline, no adenopathy, thyroid: not enlarged, symmetric, no tenderness/mass/nodules Back: Symmetric, no curvature, ROM normal, no CVA tenderness Lungs: Clear to auscultation bilaterally, respirations unlabored Heart: Regular rate and rhythm, S1, S2 normal, no murmur, rub or gallop Abdomen: Soft, non-tender Extremities: Extremities normal, atraumatic, no cyanosis or edema Pulses: 2+ and symmetric Skin: Skin color, texture, turgor normal, no rashes or lesions; alopecia which is quite distressingto her Lymph nodes: No palpable lymph nodes in the cervical, supraclavicular, axillary Neurologic: Normal Vitals BP 124/63 Pulse 63 Temp(Src) 36.7 ??C (98.1 ??F) (Oral) Resp 16 Ht 161 cm (5' 3.39) Wt 86.41 kg (190 lb 8 oz) BMI 33.34 kg/m2 SpO2 96% Karnofsky score is 90 Pathology: ---Pathologic Diagnosis--- [...] count: Mitotic count: Score = 3 Total [place] Score: [place] Grade III: 8-9 points DCIS: Ductal Carcinoma [...] slide reconstruction) MICROCALCIFICATIONS: Present in nonneoplastic tissue ER/HI/HER2: ER/HI/Her2 Comment: Please see prior biopsy [id number]. HER2 FISH will be repeated on this [...] cancer cells with immunostaining) Stain Intensity: Strong HI immunoreactivity: Positive (11-90% cancer cells with immunostaining) Stain Intensity: Strong NEGATIVE FOR HER2/DEL AMPLIFICATION Labs: 04/25/14 CBC: WBC 17.32 hemoglobin 14 platelets 231 ANC 12.30 CMP: sodium 139 potassium 3.1 CO2 elevated at 32.4 BUN 7 creatinine 0.7 glucose 114 calcium 9.2 magnesium 1.9 total bili 0.17 AST 13 ALT 22 alkaline phosphatase 118 total protein 6.8 albumin 3.2 Imagin03/15/14, CT scan of chest, abdomen and pelvis: No evidence of abdominal pelvic metastatic disease.No evidence of thoracic metastatic disease. 8 cm fluid collection in the left breast. This likely reflects postsurgical change. 03/15/14 echocardiogram: normal biventricular size and systolic function; estimated LVEF 65%. 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 Rivera developed grade 2 GI toxicity: nausea and constipation. Nausea is under control, constipation is not. We will proceed with cycle # 3 today- this is one day early due to the weather predicted for tomorrow- and neulasta tomorrow or Friday. She prefers to use the marijuana brownish rather than Compazine for nausea. I suggested she use MiraLAX , 2 capfuls a day for her constipation and to stop using Metamucil which will only worsen this situation. 2. Hypokalemia: potasium chloride IV 20 mEQ x1, then 10 mEq daily for 2 weeks, will chek level in 2weeks 3. Body image: She has been quite disturbed regarding her alopecia. We had a long talk about this today and I reassured her that her hair would indeed grow back as soon as we were done with chemotherapy. Plan: 1. Dose dense AC today, neulasta tomorrow. 2. Next visit in 2 weeks with CBC, CMP and 3-rd cycle of dose dense AC Meenakshi Sanchez, MSN, MANGLE TENDER, AOCN Hematology/Oncology Nurse Practitioner [place], [place] [phone] documented in this encounter Plan of Treatment Not on file documented as of this encounter Procedures Procedure Name Priority Date/Time Associated Diagnosis Comments LAB SCAN 05/09/2014 12:00 AM EST CHEMOTHERAPY SCAN 04/26/2014 12:00 AM EST documented in this encounter Results * SCAN DOC: LAB (05/09/2014 12:00 AM EST) Scanning Provider MEDIA MGR SCAN EXT O RDR/RSLT * SCAN DOC: CHEMOTHERAPY (04/26/2014 12:00 AM EST) Scanning Provider MEDIA MGR SCAN EXT O RDR/RSLT documented in this encounter Visit Diagnoses Diagnosis Malignant neoplasm of left female breast (BREAST CANCER) Malignant neoplasm of breast (female), unspecified site Other specified prophylactic or treatment measure documented in this encounter Care Teams Inside Horticultural Specialty Grower Relationship Specialty Start Date End Date Ag Trent MD [address] [place] [address] PCP - General 02/02/14 documented as of this encounter
--- OUTSIDE RECORDS SUMMARY | 2024-02-17 15:59 | XMS_ITS | Encounter Summary ---
Author Organization [facility] Address [facility] [place] [address] Care Team Providers Care Electrical Equipment Tester Name Role Phone Ag Trent MD Primary Care Provider [phone] Encounter Details Date Type Department Care Team (Late st Contact Info) Description 03/17/2014 Orders Only Hematology and Oncology at [facility] [place] [address] Yulissa Mcguire Breast cancer, female, unspecified laterality (Primary Dx); Breast cancer, female, left; Patient in cancer related research study Social History Tobacco Use Types Packs/Day Years [...] documented as of this encounter Results * High Sensitivity CRP (03/22/2014 10:12 AM EST) C-Reactive Protein High Sensitivity 10.5 mg/L [facility] Comment: Interpretations: 1) For accurate cardiac [...] In Lab Kirill Saavedra MD CHEMISTRY ORDERABLES [facility] documented in this encounter Visit Diagnoses Diagnosis Breast cancer, female, unspecified laterality- Primary Breast cancer, female, left Patient in cancer related research study documented in this encounter Care Teams Electrical Equipment Tester Relationship Specialty Start Date End Date Ag Trent MD [address] [place] [address] PCP - General 02/02/14 documented as of this encounter
--- OUTSIDE RECORDS SUMMARY | 2024-02-17 15:59 | XMS_ITS | Encounter Summary ---
Author Organization [facility] Address [facility] [place] [address] Care Team Providers Care Cover Inspector Name Role Phone Ag Trent MD Primary Care Provider [phone] Encounter Details Date Type Department Care Team (Late st Contact Info) Description 06/07/2014 10:00 AM EDT Follow-Up Hematology Oncology at [address] [phone] Kirill Saavedra MD [facility] [address] [place] [address] Malignant neoplasm of left female breast (BREAST CANCER); Hypokalemia; Mucositis Discharge Disposition: Home Social History Tobacco Use [...] Sign Reading Time Taken Comments Blood Pressure 135/72 06/07/2014 9:55 AM EDT Pulse 63 06/07/2014 9:55 AM EDT Temperature 37.3 ??C (99.1 ??F) 06/07/2014 9:55 AM ED T Respiratory Rate 16 06/07/2014 9:55 AM EDT Oxygen Saturation 97% 06/07/2014 9:55 AM EDT Inhaled Oxygen Concentration - - Weight 83.7 kg (184 lb 8 oz) 06/07/2014 9:55 AM EDT Height 161 cm (5' 3.39) 06/07/2014 9:55 AM EDT Body Mass Index 32.29 06/07/2014 9:55 AM EDT documented in this encounter Progress Notes * Kirill Saavedra MD - 06/07/2014 1:01 PM EDT Diagnosis: 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 Subjective:I felt fatigued after chemo HPI: Mrs. Narda Rivera is 63 y.o. female Referred to us for consultation by Dr. Cohen on new diagnosis of breast cancer. She initially presenteda mass in her upper outer left breast with calcifications on a screening mammogram in December 2013.The main mass wasbiopsied showing infiltrating ductal andlobular carcinoma, ER positive, [id number]. MRI was then performed that showed the mass with multiple small satellites around it. Mrs. Rivera underwent left partial mastectomy and sentinel lymph node biopsy on February 23, 2014. Postoperative course was uneventful. Interval history: Mrs. Rivera is in clinic today for followup appointment and 3- rd dose of weekly Taxol. She complains on mild indigestion. She noticed improvement in swallowing on carafate PMH: no interval changes Patient Active Problem [...] or inguinal areas. Neurologic: Normal Vitals BP 135/72 Pulse 63 Temp(Src) 37.3 ??C (99.1 ??F) (Oral) Resp 16 Ht 161 cm (5' 3.39) Wt 83.689 kg (184 lb 8 oz) BMI 32.29 kg/m2 SpO2 97% Karnofsky score is 90 [...] count: Mitotic count: Score = 3 Total [place] Score: [place] Grade III: 8-9 points DCIS: Ductal Carcinoma [...] slide reconstruction) MICROCALCIFICATIONS: Present in nonneoplastic tissue ER/CA/HER2: ER/CA/Her2 Comment: Please see prior biopsy [id number]. HER2 FISH will be repeated on this [...] cancer cells with immunostaining) Stain Intensity: Strong CA immunoreactivity: Positive (11-90% cancer cells with immunostaining) Stain Intensity: Strong NEGATIVE FOR HER2/DEL AMPLIFICATION Labs: WBC 3.31, hemoglobin 12.2, platelet count 345, ANC 2.06 calcium 8.9, BUN 12, creatinine 0.7, TP 6.6, TB 0.37, alkaline phosphatase 74, sodium 143, potassium 3.2, AST 32, ALT 56. Imagin03/15/14, CT scan of chest, abdomen and pelvis: No evidence of abdominal pelvic metastatic disease.No evidence of thoracic metastatic disease. 8 cm fluid collection in the left breast. This likely reflects postsurgical change. 03/15/14 echocardiogram: normal biventricular size and systolic function; estimated LVEF 65%. 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 Hypokalemia: potassium 3.2 today, Will increase oral potassium supplementation to 20 mEq a day twice a day 3. Anxiety:controlled on lorazepam [...] Priority Date/Time Associated Diagnosis Comments CHEMOTHERAPY SCAN 06/08/2014 12:00 AM EDT LAB SCAN 06/07/2014 12:00 AM EDT LAB SCAN 06/07/2014 12:00 AM EDT documented in this encounter Results * SCAN DOC: CHEMOTHERAPY (06/08/2014 12:00 AM EDT) Scanning Provider MEDIA MGR SCAN EXT O RDR/RSLT * SCAN DOC: LAB (06/07/2014 12:00 AM EDT) Scanning Provider MEDIA MGR SCAN EXT O RDR/RSLT * SCAN DOC: LAB (06/07/2014 12:00 AM EDT) Scanning Provider MEDIA MGR SCAN EXT O RDR/RSLT documented in this encounter Visit Diagnoses Diagnosis Malignant neoplasm of left female breast (BREAST CANCER) Malignant neoplasm of breast (female), unspecified site Hypokalemia Hypopotassemia Mucositis Stomatitis and mucositis, unspecified documented in this encounter Care Teams Cover Inspector Relationship Specialty Start Date End Date Ag Trent MD [address] [place] [address] PCP - General 02/02/14 documented as of this encounter
--- OUTSIDE RECORDS SUMMARY | 2024-02-17 15:59 | XMS_ITS | Encounter Summary ---
Author Organization [facility] Address [facility] [place] [address] Care Team Providers Care Sterile Processing Technologist Name Role Phone Ag Trent MD Primary Care Provider [phone] Encounter Details Date Type Department Care Team (Late st Contact Info) Description 05/17/2014 Notes Only Hematology and Oncology at [facility] [place] [address] Alba Castillo MD [facility] [address] [place] [address] Social History Tobacco Use Types Packs/Day Years [...] Progress Notes * Yulissa Mcguire RN - 05/26/2014 3:40 PM EST Research Study Note; Week 7 phone call 05/17/14 Control arm A [id number]: Effects of an Exercise Intervention on Physical Activity during Chemotherapy for Patients with Early Stage Breast Cancer This call made by Dr. Alba Castillo. Narda reported that she had a bad week and was able to get on her exercise bike 2 of 7 days. She biked 10 min each of those days at a somewhat hard exertion rate. Her feeling rate was -3 = bad. Her basic standard goal is 10 min of exercise x 5 days/week. Heraverage daily steps = 1,528 steps and she documented her steps each day. documented in this encounter Plan of Treatment Not on file documented as of this encounter Visit Diagnoses Not on filedocumented in this encounter Care Teams Sterile Processing Technologist Relationship Specialty Start Date End Date Ag Trent MD [address] [place] [address] PCP - General 02/02/14 documented as of this encounter
--- OUTSIDE RECORDS SUMMARY | 2024-02-17 15:59 | XMS_ITS | Encounter Summary ---
Author Organization [facility] [place] [address] Care Team Providers Care Broadcast Meteorologist Name Role Phone Ag Trent MD Primary Care Provider [phone] Encounter Details Date Type Department Care Team (Late st Contact Info) Description 05/31/2014 Orders Only Hematology Oncology at [address] [phone] Ashley Elena, RN Mucositis Social History Tobacco Use Types Packs/Day Years [...] Progress Notes * Ashley Elena, RN - 05/31/2014 11:54 AM EST Patient would like to get carafate prescription filled locally if copay is not greater than $30. She believes [facility] [place] [facility] in the past. After phonecall to [facility] and [facility], able to determine that she has not had prescriptions filled at either pharmacy since 2012. After providing them with social security number they were able to determine her insurance information and said that she would have $143 copay for carafate and $36.41 copay for magic mouth wash prescription (as determined by calling [facility] that they had cancelled prescription as they can not provide that medication). Patient will plan to get magic mouthwash at [facility] in [facility] [place] [facility] and carafate from mail order pharmacy ([facility]) documented in this encounter Plan of Treatment Not on file documented as of this encounter Visit Diagnoses Diagnosis Mucositis Stomatitis and mucositis, unspecified documented in this encounter Care Teams Broadcast Meteorologist Relationship Specialty Start Date End Date Ag Trent MD [address] [place] [id number] PCP - General 02/02/14 documented as of this encounter
--- OUTSIDE RECORDS SUMMARY | 2024-02-17 15:59 | XMS_ITS | Encounter Summary ---
Author Organization [facility] Address [facility] [place] [address] [place] [address] Care Team Providers Care Hris Developer Name Role Phone Ag Trent MD Primary Care Provider [phone] Reason for Visit * Reason Comments Chemotherapy Taxol Cycle 1 day 1 Encounter Details Date Type Department Care Team (Late st Contact Info) Description 05/24/2014 11:00 AM EST Office Visit Hematology Oncology at [address] [phone] CLINIC, DR ARANGO HEM/ONC Kirill Saavedra MD [facility] HEMATOLOGY [place] [address] Breast cancer, left breast; Other specified prophylactic [...] Progress Notes * Marie Eli RN - 05/24/2014 2:15 PM EST INFUSION THERAPY ADMINISTRATION NOTES DIAGNOSIS: Breast Cancer CYCLE #: 1 day 1 REASON FOR VISIT: Taxol SUBJECTIVE Narda offers no complaints. OBJECTIVE LAB DATA: WNL, potassium low at 2.9-replacements ordered and given. IV ACCESS: Mediport Pre administration: Chemotherapy orders [...] 10 mg, Intravenous, ONCE, 1 dose, On Fri05/24/14 at 1200, Administer 30 minutes prior to PACLitaxel Given 05/24/2014 12:34 PM EST 10 mg diphenhydrAMINE (BENADRYL) injection 25 mg 25 mg, Intravenous, ONCE, 1 dose, On Fri05/24/14 at 1200, Administer 30 minutes prior to PACLitaxel, Routine Given 05/24/2014 12:39 PM EST 25 mg famotidine (PEPCID) infusion 20 mg 20 mg, Intravenous, ONCE, 1 dose, On Fri05/24/14 at 1200, Administer over 15 Minutes, Administer 30 minutes prior to PACLitaxel Given 05/24/2014 12:43 PM EST 20 mg 200 mL/hr heparin, porcine 100 unit/mL flush 500 Units 500 Units, Intravenous, ONCE PRN, Starting on Fri05/24/14 at 1140, Until Fri05/24/14 at 1750, Line Care, Refer to Intravenous (IV) Procedure: Accessing Implanted Vascular Access Devices (944) procedure and/or Intravenous (IV) Job Aid: Adult Flushing & Catheter Care (4692) job aid for additional information regarding guidelines and administration., Routine Given 05/24/2014 2:40 PM EST 500 Units LORazepam (ATIVAN) tablet 0.5 mg 0.5 mg, Oral, ONCE, 1 dose, On Fri05/24/14 at 1200, Administer prior to chemotherapy, Routine Given 05/24/2014 12:34 PM EST 0.5 mg ondansetron (ZOFRAN) tablet 16 mg 16 mg, Oral, ONCE, 1 dose, On Fri05/24/14 at 1200, Administer prior to chemotherapy, Routine Given 05/24/2014 12:34 PM EST 16 mg PACLitaxel (TAXOL) 154 mg in dextrose 5% Non-PVC 275.6667 mL chemo infusion 154 mg (rounded from 154.4 mg = 80 mg/m2/dose ? 1.93 m2 Treatment Plan BSA from Recorded weight), Intravenous, ONCE, 1 dose, On Fri05/24/14 at 1300, Administer over 60 Minutes New Bag 05/24/2014 1:34 PM EST 154 mg 276 mL/hr potassium chloride 20 mEq in 100 mL 20 mEq, Intravenous, ONCE, 1 dose, On Fri05/24/14 at 1115, Administer over 60 Minutes, Central line use only. Serum potassium 2.9. Given 05/24/2014 11:19 AM EST 20 mEq 100 mL/hr sodium chloride 0.9 % flush 5-20 mL 5-20 mL, Intravenous, EVERY 1 MIN PRN, Starting on Fri05/24/14 at 1140, Until Fri05/24/14 at 1750, Line Care, Flush pertains to all indwelling lines. Flush per protocol found in the job aid using the link provided on this medication record. Refer to Intravenous (IV) Job Aid: Adult Flushing & Catheter Care (3996) job aid for additional information regarding guidelines and administration., Routine Given 05/24/2014 2:40 PM EST 20 mLs documented in this encounter Care Teams Hris Developer Relationship Specialty Start Date End Date Ag Trent MD [address] [place] [address] PCP - General 02/02/14 documented as of this encounter
--- OUTSIDE RECORDS SUMMARY | 2024-02-17 15:59 | XMS_ITS | Encounter Summary ---
Author Organization [facility] Address [facility] [place] [address] Care Team Providers Care Tank Builder And Erector Name Role Phone Ag Trent MD Primary Care Provider [phone] Reason for Visit * Reason Comments Chemotherapy Taxol # 2 Encounter Details Date Type Department Care Team (Late st Contact Info) Description 05/31/2014 11:00 AM EST Office Visit Hematology Oncology at [address] [phone] CLINIC, DR ARANGO HEM/ONC Breast [...] Progress Notes * Manuela Pena RN - 05/31/2014 11:34 AM EST INFUSION THERAPY ADMINISTRATION NOTES DIAGNOSIS: Breast CA CYCLE #: 2 REASON FOR VISIT: Taxol Chemotherapy SUBJECTIVE Ms. Rivera is here for her Taxol infusion. She offers no complaints. OBJECTIVE LAB DATA: wbc 4.47, hgb 11.9, plts 406k, anc 2.95, K+ 3.1 IV ACCESS: Mediport Pre administration: Chemotherapy orders independently verified for drug name, route, and dosage per patient's height, weight and BSA by Colten Pena RN and Luz Pizano [facility] REACTIONS (DESCRIPTION, TIME, INTERVENTION AND EFFECTIVENESS) none ASSESSMENT Mr. Rivera was awake, alert and she tolerated treatment well. PLAN Return to clinic in one week for dose 3 Taxol. She was reminded to call with any questions/concerns. documented in this encounter Plan of Treatment [...] 10 mg, Intravenous, ONCE, 1 dose, On Fri05/31/14 at 1145, Administer 30 minutes prior to PACLitaxel Given 05/31/2014 11:55 AM EST 10 mg diphenhydrAMINE (BENADRYL) injection 25 mg 25 mg, Intravenous, ONCE, 1 dose, On Fri05/31/14 at 1145, Administer 30 minutes prior to PACLitaxel, Routine Given 05/31/2014 12:01 PM EST 25 mg famotidine (PEPCID) infusion 20 mg 20 mg, Intravenous, ONCE, 1 dose, On Fri05/31/14 at 1145, Administer over 15 Minutes, Administer 30 minutes prior to PACLitaxel Given 05/31/2014 12:07 PM EST 20 mg 200 mL/hr heparin, porcine 100 unit/mL flush 500 Units 500 Units, Intravenous, ONCE PRN, Starting on Fri05/31/14 at 1127, Until Fri05/31/14 at 1645, Line Care, Refer to Intravenous (IV) Procedure: Accessing Implanted Vascular Access Devices (144) procedure and/or Intravenous (IV) Job Aid: Adult Flushing & Catheter Care (9117) job aid for additional information regarding guidelines and administration., Routine Given 05/31/2014 2:40 PM EST 500 Units ondansetron (ZOFRAN) tablet 16 mg 16 mg, Oral, ONCE, 1 dose, On Fri05/31/14 at 1145, Administer prior to chemotherapy, Routine Given 05/31/2014 11:54 AM EST 16 mg PACLitaxel (TAXOL) 154 mg in dextrose 5% Non-PVC 275.6667 mL chemo infusion 154 mg (rounded from 154.4 mg = 80 mg/m2/dose ? 1.93 m2 Treatment Plan BSA from Recorded weight), Intravenous, ONCE, 1 dose, On Fri05/31/14 at 1245, Administer over 60 Minutes New Bag 05/31/2014 1:34 PM EST 154 mg 275 mL/hr potassium chloride 20 mEq in 100 mL 20 mEq, Intravenous, ONCE, 1 dose, On Fri05/31/14 at 1145, Administer over 60 Minutes, Central line use only. Serum potassium 3.1. Given 05/31/2014 12:29 PM EST 20 mEq 100 mL/hr sodium chloride 0.9 % flush 5-20 mL 5-20 mL, Intravenous, EVERY 1 MIN PRN, Starting on Fri05/31/14 at 1127, Until Fri05/31/14 at 1645, Line Care, Flush pertains to all indwelling lines. Flush per protocol found in the job aid using the link provided on this medication record. Refer to Intravenous (IV) Job Aid: Adult Flushing & Catheter Care (7375) job aid for additional information regarding guidelines and administration., Routine Given 05/31/2014 2:40 PM EST 20 mLs documented in this encounter Care Teams Tank Builder And Erector Relationship Specialty Start Date End Date Ag Trent MD [address] [place] [address] PCP - General 02/02/14 documented as of this encounter
--- OUTSIDE RECORDS SUMMARY | 2024-02-17 15:59 | XMS_ITS | Encounter Summary ---
Author Organization [facility] Address [facility] [place] [address] Care Team Providers Care Camera Assembler Name Role Phone Ag Trent MD Primary Care Provider [phone] Encounter Details Date Type Department Care Team (Late st Contact Info) Description 04/27/2014 Notes Only Hematology [place] [address] Kirill Saavedra MD [facility] DR HEMATOLOGY AND ONCOLOGY [place] [id number] Social History Tobacco Use Types Packs/Day Years [...] Progress Notes * Yulissa Mcguire RN - 04/28/2014 1:33 PM EST Research Nurse; Week 4 phone call 04/27/2014 Control arm A [id number]: Effects of an Exercise Intervention on Physical Activity during Chemotherapy for Patients with Early Stage Breast Cancer Narda reported average steps of 1397/day. She biked on her stationary bike every day for 10 min each day. Both the amount of steps and that she walked on her treadmill all 7 days is an increase in her activity. Feeling scale while exercising was reported as 0 = neutral each day. Perceived exertion reported as fairly light - somewhat hard. Narda continues to be compliant with the study requirements even though she states I have a hard time to get with it. Yulissa Mcguire RN documented in this encounter Plan of Treatment Not on file documented as of this encounter Visit Diagnoses Not on filedocumented in this encounter Care Teams Camera Assembler Relationship Specialty Start Date End Date Ag Trent MD [address] [place] [address] PCP - General 02/02/14 documented as of this encounter
--- OUTSIDE RECORDS SUMMARY | 2024-02-17 15:59 | XMS_ITS | Encounter Summary ---
Author Organization [facility] Address [facility] [place] [address] Care Team Providers Care Pharmaceutical Salesperson Name Role Phone Ag Trent MD Primary Care Provider [phone] Encounter Details Date Type Department Care Team (Latest Contact Info) Description 05/10/2014 Unscheduled Encounter Hematology Oncology at [address] [phone] Karen Padilla, [facility] [place] [address] Dietary surveillance and counseling Social History Tobacco Use Types Packs/Day Years [...] this encounter Progress Notes * Karen Padilla, RD - 05/10/2014 12:03 PM EST NCCC-N Dietition Assessment Seen by: Trish Padilla, MS, RD, LD, FILM LIBRARIAN Reason for consult: Was asked to meet with pt by Dr. Rollins, was only able to meet briefly d/t 3 kg wt loss in one week and mouth sores. Introduced myself and role in the team. Pt and Dx: Mrs. Narda Rivera is 63 y.o. female Referred to us for consultation by Dr. Cohen on new diagnosis of breast cancer. She initially presented a mass in her upper outer left breast with calcifications on a screening mammogram in December 2013.The main mass was biopsied showing infiltrating ductal and lobular carcinoma, ER positive, [id number]. MRI was then performed that showed the mass with multiple small satellites around it. Mrs. Rivera underwent left partial mastectomy and sentinel lymph node biopsy on February 23, 2014. Postoperative course was uneventful. Provided contact information should she have questions in the mean time. Food Intake: Typically eats breakfast but now d/t mouth sores, doesn't really eat much after that. AM: eggs and toast Noon: PM: Bit of taco and apple Education materials provided: -- High [employer] Beverages -- Making the most of each bite -- Soft and moist high pro foods -- Taste and smell changes Will follow up and conduct full assessment with Narda in 2 weeks when she returns to clinic. documented in this encounter Plan of Treatment Not on file documented as of this encounter Visit Diagnoses Diagnosis Dietary surveillance and counseling documented in this encounter Care Teams Pharmaceutical Salesperson Relationship Specialty Start Date End Date Ag Trent MD [address] [place] [address] PCP - General 02/02/14 documented as of this encounter
--- OUTSIDE RECORDS SUMMARY | 2024-02-17 15:59 | XMS_ITS | Encounter Summary ---
Author Organization [facility] Address [facility] [place] [address] [place] [address] Care Team Providers Care Respiratory Technician Name Role Phone Ag Trent MD Primary Care Provider [phone] Reason for Visit * Reason Comments Breast Cancer neulasta Encounter Details Date Type Department Care Team (Late st Contact Info) Description 04/27/2014 11:00 AM EST Office Visit Hematology Oncology at [address] [phone] Susan Mccracken MD [facility] [address] [place] [address] Other specified prophylactic or treatment measure; Malignant [...] Progress Notes * Kiarra Madrid RN - 04/27/2014 11:15 AM EST Treatment Started: 1055 Treatment Ended: 1110 Diagnosis: breast cancer Treatment: neulasta 6 mg sc right arm documented in this encounter Plan of Treatment Not on file documented as of this encounter Visit Diagnoses Diagnosis Other specified prophylactic or treatment measure Malignant neoplasm of left female breast (BREAST CANCER) Malignant neoplasm of breast (female), unspecified site documented in this encounter Administered Medications Inactive Administered Medications - up to 3 most recent administrations Medication Order MAR Action Action Date Dose Rate Site pegfilgrastim (NEULASTA) injection 6 mg 6 mg, Subcutaneous, ONCE, 1 dose, On Fri04/27/14 at 1115, Routine Given 04/27/2014 11:02 AM EST 6 mg Christen kee Arm documented in this encounter Care Teams Respiratory Technician Relationship Specialty Start Date End Date Ag Trent MD [address] [place] [address] PCP - General 02/02/14 documented as of this encounter
--- OUTSIDE RECORDS SUMMARY | 2024-02-17 15:59 | XMS_ITS | Encounter Summary ---
Author Organization [facility] Address [facility] [place] [address] Care Team Providers Care Fuel Testing Technician Name Role Phone Ag Trent MD Primary Care Provider [phone] Reason for Visit * Reason Comments Follow-up Encounter Details Date Type Department Care Team (Late st Contact Info) Description 03/29/2014 10:30 AM EST Follow-Up Hematology Oncology at [address] [phone] Kirill Saavedra MD [facility] DR [place] [address] Malignant neoplasm of left female breast Discharge [...] Reading Time Taken Comments Blood Pressure 133/81 03/29/2014 11:12 AM EST Pulse 69 03/29/2014 11:12 AM EST Temperature 36.8 ??C (98.2 ??F) 03/29/2014 11:[address] Respiratory Rate 20 03/29/2014 11:12 AM EST Oxygen Saturation 98% 03/29/2014 11:12 AM EST Inhaled Oxygen Concentration - - Weight 86.6 kg (191 lb) 03/29/2014 11:12 AM EST Height 161 cm (5' 3.39) 03/29/2014 11:12 AM EST Body Mass Index 33.42 03/29/2014 11:12 AM EST documented in this encounter Progress Notes * Kirill Saavedra MD - 03/29/2014 11:59 AM EST Diagnosis: 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 Subjective:I am very nervous about chemotherapy HPI: Mrs. Narda Frazier is 63 y.o. female Referred to us for consultation by Dr. Cohen on new diagnosis of breast cancer. She initially presenteda mass in her upper outer left breast with calcifications on a screening mammogram in December 2013.The main mass wasbiopsied showing infiltrating ductal andlobular carcinoma, ER positive, [id number]. MRI was then performed that showed the mass with multiple small satellites around it. Mrs. Frazier underwent left partial mastectomy and sentinel lymph node biopsy on February 23, 2014. Postoperative course was uneventful. Interval history: Mrs. Frazier is in clinic today for followup appointment the first cycle of dose dense chemotherapy. Overall, she feels well. She had MediPort placed and had echocardiogram. PMH:Hypertension, hypercholesterolemia, hypothyroidism, osteoarthritis, history of knee [...] chest pain, palpitations and leg swelling. Gastrointestinal: Negative for nausea, vomiting, abdominal pain, diarrhea, constipation and abdominal distention. Genitourinary: Negative for dysuria [...] areas. Neurologic: Normal Vitals BP 133/81 Pulse 69 Temp(Src) 36.8 ??C (98.2 ??F) (Oral) Resp 20 Ht 161 cm (5' 3.39) Wt 86.637 kg (191 lb) BMI 33.42 kg/m2 SpO2 98% Karnofsky score is 90 [...] count: Score = 3 Total Khalif Score: [place] Grade III: 8-9 points DCIS: Ductal Carcinoma [...] slide reconstruction) MICROCALCIFICATIONS: Present in nonneoplastic tissue ER/AR/HER2: ER/AR/Her2 Comment: Please see prior biopsy [id number]. HER2 FISH will be repeated on this [...] cancer cells with immunostaining) Stain Intensity: Strong AR immunoreactivity: Positive (11-90% cancer cells with immunostaining) Stain Intensity: Strong NEGATIVE FOR HER2/DEL AMPLIFICATION Labs: Results for NARDA FRAZIER ( ) as of 03/29/2014 11:18 Ref. Range 03/18/2014 10:36 WBC Latest Range: 4.0-10.0 x10(3)/mcL 6.8 RBC Latest Range: 3.93-5.22 x10(6)/mcL 4.89 Hemoglobin Latest Range: 11.2-15.7 gm/dL 14.7 Hematocrit Latest Range: 34.0-45.0 % 41.8 MCV Latest Range: 79.0-94.0 fL 85.5 MCH Latest Range: 26.6-32.2 pg 30.1 MCHC Latest Range: 32.0-36.5 gm/dL 35.2 RDWSD Latest Range: 35.0-46.0 fL 39.3 RDWCV Latest Range: 10.9-14.4 % 12.8 Platelets Latest Range: 145-370 x10(3)/mcL 289 MPV Latest Range: 9.0-12.0 fL 10.3 Neutr Abs (ANC) Latest Range: 1.50-6.30 x10(3)/mcL 3.79 Neutrophils % No range found 55.6 Immature Gran % No range found 0.30 Lymphocytes % No range found 34.6 Monocytes % No range found 7.8 Eosinophils % No range found 1.6 Basophils % No range found 0.1 Beverly Gran Abs Latest Range: 0.00-0.05 x10(3)/mcL 0.02 Lymphocytes Abs Latest Range: 1.0-3.6 x10(3)/mcL 2.4 Monocyte Abs Latest Range: 0.2-1.0 x10(3)/mcL 0.5 Eosinophils Abs Latest Range: 0.0-0.5 x10(3)/mcL 0.1 Basophils Abs Latest Range: 0.0-0.2 x10(3)/mcL 0.0 Sodium Latest Range: 135-145 mmol/L 142 Potassium Latest Range: 3.5-5.0 mmol/L 3.3 (L) Chloride Latest Range: 98-107 mmol/L 101 CO2 Latest Range: 22-31 mmol/L 25 Anion Gap Latest Range: 5-15 mmol/L 16 (H) BUN Latest Range: 8-18 mg/dL 15 Creatinine Latest Range: 0.70-1.20 mg/dL 0.68 (L) Estimated GFR Latest Range: >=60 >60 Glucose Lvl Latest Range: 60-199 mg/dL 104 Calcium Latest Range: 8.5-10.5 mg/dL 9.3 Total Protein Latest Range: 6.4-8.3 gm/dL 6.4 Albumin Latest Range: 3.2-5.2 gm/dL 3.7 Total Bilirubin Latest Range: 0.2-1.3 mg/dL <0.2 (L) Bili, Direct Latest Range: 0.0-0.3 mg/dL 0.1 Alk Phos Latest Range: 40-104 unit/L 76 AST Latest Range: 0-30 unit/L 18 ALT Latest Range: 0-30 unit/L 25 Imagin03/15/14, CT scan of chest, abdomen and pelvis: No evidence of abdominal pelvic metastatic disease.No evidence of thoracic metastatic disease. 8 cm fluid collection in the left breast. This likely reflects postsurgical change. 03/15/14 echocardiogram: normal biventricular size and systolic function; estimated LVEF 65%. 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 There are about 65% chances for relapse and 42% chances for mortality from cancer within next 10 years according to adjuvant online data. There is 10% absolute benefit in survival with hormonal therapy and 13% absolute benefit of survival with chemotherapy. The combination of chemotherapy and hormonal therapy can help to cut chances of dying from breast cancer within next [address] scan did not show any signs of metastatic disease. Echocardiogram within normal limit. We discussed risks of chemotherapy with dose dense doxorubicin 60 mg/m2 and cyclophosphamide 600/m2X 4 followed by weekly Taxol x12 which include but not limited to hair loss, nausea, vomiting, fatigue, diarrhea, numbness and tingling in the extremities, low blood counts requiring transfusion, heart failure, kidney failure and . Mrs. Frazier is interested to proceed. Informed verbal consent was obtained. Chemotherapy for total of 4 cycles dose dense AC with Neulasta support and 4 cycles of weekly Taxolwill follow by radiation therapy and then hormonal therapy. Plan: 1. Dose dense AC today, neulasta tomorrow. 2. Next visit in 2 weeks with CBC, CMP and second cycle of dose dense AC Mrs. Frazier is accompanied by everett today. The plan was discussed with the [...] site documented in this encounter Care Teams Fuel Testing Technician Relationship Specialty Start Date End Date Ag Trent MD [address] [place] [address] PCP - General 02/02/14 documented as of this encounter
--- OUTSIDE RECORDS SUMMARY | 2024-02-17 15:59 | XMS_ITS | Encounter Summary ---
Author Organization [facility] Address [facility] [place] [address] Care Team Providers Care Colliery Clerk Name Role Phone Ag Trent MD Primary Care Provider [phone] Encounter Details Date Type Department Care Team (Late st Contact Info) Description 06/01/2014 Notes Only Hematology [place] [address] Kirill Saavedra MD [facility] DR HEMATOLOGY [place] [address] Social History Tobacco Use Types Packs/Day Years [...] Progress Notes * Yulissa Mcguire RN - 06/01/2014 2:03 PM EST Research Study Note; Week 9 phone call 06/01/14 Control arm A [id number]: Effects of an Exercise Intervention on Physical Activity during Chemotherapy for Patients with Early Stage Breast Cancer Narda continued using her stationary bike 5/7 days in the past week for 10 minutes each time at an exertion rate of 12 - 13 which translates to moderate to brisk exercise.Her daily average steps increased to 3,066 which was about 1000 steps, more than last week. Reasons why she was not exercising on two of the days was due to Benadryl and Ativan given with her chemo one day and due to nausea another. She is feeling neutral about her bike exercising. Narda also stated she had better energy today and was going for an outing to the [employer] with her visiting friend after this phonecall. She agreed that I can call again next Friday. documented in this encounter Plan of Treatment Not on file documented as of this encounter Visit Diagnoses Not on filedocumented in this encounter Care Teams Colliery Clerk Relationship Specialty Start Date End Date Ag Trent MD [address] [place] [address] PCP - General 02/02/14 documented as of this encounter
--- OUTSIDE RECORDS SUMMARY | 2024-02-17 15:59 | XMS_ITS | Encounter Summary ---
Author Organization [facility] Address [facility] [place] [address] Care Team Providers Care Mechanical Inspector Name Role Phone Ag Trent MD Primary Care Provider [phone] Reason for Visit * Reason Comments Chemotherapy AC - CY1 DAY 1 Encounter Details Date Type Department Care Team (Late st Contact Info) Description 03/29/2014 11:30 AM EST Office Visit Hematology Oncology at [address] [address] Kirill Saavedra MD [facility] [address] [place] [address] Malignant neoplasm of left female breast (BREAST [...] Progress Notes * Marie Eli RN - 03/29/2014 2:22 PM EST INFUSION THERAPY ADMINISTRATION NOTES DIAGNOSIS: Breast Cancer CYCLE #:1 REASON FOR VISIT: AC SUBJECTIVE Narda offers no complaints. OBJECTIVE LAB DATA:WNL IV ACCESS: Mediport Pre administration: Chemotherapy orders independently verified for drug name, route, and dosage per patient's height, weight and BSA by Marie Eli RN and Onsite Pharmacist. REACTIONS (DESCRIPTION, TIME, INTERVENTION AND EFFECTIVENESS) none ASSESSMENT Narda was awake, alert and tolerated treatment well. She was accompanied by her significant other, Enrique. Pt. chemo teaching instructions included: During clinic hours (8am-5pm Friday-Friday): pt. can call [phone] with questions or concerns. After clinic hours (5pm-8am Friday-Friday and weekends) pt can call [phone] and ask for the decorative engraver apprentice/oncologist inspector publications. Narda Rivera verbalized understanding of potential chemotherapy side effects and home care includingbut not limited to- handwashing to prevent infection, signs and symptoms of low blood counts (fever, fatigue, bleeding), to call with a fever of 100.4 or greater, any significant constipation/diarrhea, importance of nutrition and fluid intake (drinking at least 32-64 ounces of non-caffeinated beverages/day), mouth care. Narda Rivera verbalized understanding of how to take prescription medications given for home use after chemotherapy. PLAN Return to clinic tomorrow for neulasta documented in this encounter Plan of Treatment Not on file documented as of this encounter Visit Diagnoses Diagnosis Malignant neoplasm of left female breast (BREAST CANCER) Malignant neoplasm of breast (female), unspecified site documented in this encounter Administered Medications Inactive Administered Medications - up to 3 most recent administrations Medication Order MAR Action Action Date Dose Rate Site cyclophosphamide (CYTOXAN) 1,182 mg in dextrose 5% 309.1 mL chemo infusion 1,182 mg (600 mg/m2/dose ? 1.97 m2 Treatment Plan BSA from Recorded weight), Intravenous, ONCE, 1 dose, On Fri03/29/14 at 1400, Administer over 30 Minutes New Bag 03/29/2014 2:28 PM EST 1,182 mg 618 mL/hr dexamethasone (DECADRON) injection 10 mg 10 mg, Intravenous, ONCE, 1 dose, On Fri03/29/14 at 1300, Administer prior to chemotherapy Given 03/29/2014 1:05 PM EST 10 mg DOXOrubicin (ADRIAMYCIN) chemo injection 118.2 mg 118.2 mg (60 mg/m2/dose ? 1.97 m2 Treatment Plan BSA from Recorded weight), Intravenous, ONCE, 1 dose, On Fri03/29/14 at 1400, Administer each syringe over a minimum of 3 minutes per syringe. Each syringe contains 39.4 mg in 19.7 ml. Given 03/29/2014 2:11 PM EST 118.2 mg fosaprepitant (EMEND) 150 mg in sodium chloride 0.9% 155 mL infusion 150 mg, Intravenous, ONCE, 1 dose, On Fri03/29/14 at 1300, Administer over 30 Minutes, Administer prior to chemotherapy New Bag 03/29/2014 1:35 PM EST 150 mg 310 mL/hr heparin, porcine 100 unit/mL flush 500 Units 500 Units, Intravenous, ONCE PRN, Starting on Fri03/29/14 at 1238, Until Fri03/29/14 at 1800, Line Care, Refer to Intravenous (IV) Procedure: Accessing Implanted Vascular Access Devices (654) procedure and/or Intravenous (IV) Job Aid: Adult Flushing & Catheter Care (3589) job aid for additional information regarding guidelines and administration., Routine Given 03/29/2014 3:00 PM EST 500 Units LORazepam (ATIVAN) tablet 0.5 mg 0.5 mg, Oral, ONCE, 1 dose, On Fri03/29/14 at 1300, Administer prior to chemotherapy, Routine Given 03/29/2014 1:03 PM EST 0.5 mg palonosetron (ALOXI) injection 0.25 mg 0.25 mg, Intravenous, ONCE, 1 dose, On Fri03/29/14 at 1300, Administer over 30 seconds. Administer prior to chemotherapy, Routine Given 03/29/2014 1:10 PM EST 0.25 mg sodium chloride 0.9 % flush 5-20 mL 5-20 mL, Intravenous, EVERY 1 MIN PRN, Starting on Fri03/29/14 at 1238, Until Fri03/29/14 at 1800, Line Care, Flush pertains to all indwelling lines. Flush per protocol found in the job aid using the link provided on this medication record. Refer to Intravenous (IV) Job Aid: Adult Flushing & Catheter Care (6091) job aid for additional information regarding guidelines and administration., Routine Given 03/29/2014 2:59 PM EST 20 mLs documented in this encounter Care Teams Mechanical Inspector Relationship Specialty Start Date End Date Ag Trent MD [address] [place] [address] PCP - General 02/02/14 documented as of this encounter
--- OUTSIDE RECORDS SUMMARY | 2024-02-17 15:59 | XMS_ITS | Encounter Summary ---
[facility] [place] [address] Care Team Providers Care Bucket Hooker Name Role Phone Ag Trent MD Primary Care Provider [phone] Encounter Details Date Type Department Care Team (Late st Contact Info) Description 03/29/2014 Notes Only Hematology Oncology at [address] [address] Taylor Sousa, STEAM BLOCKER OFFICE OF CARE MANAGEMENT Social History Tobacco [...] Progress Notes * Taylor Sousa MSW - 03/30/2014 9:54 AM EST Reason for Referral: Brief assessment of social and emotional needs. Met with pt and friend Enrique during infusion 03/29/14. Social Supports: Pt indicated her primary supports are her friend Enrique and several other friends. She did identify a cousin who lives in [facility]. Living Situation/Daily Activities/Transportation: Pt live alone and manages her daily chores and activities. She does drive and indciated transportation to appointments should not be an issue. Work/Finances/Insurance: Pt is retired. She indicated she is able to manage her financial obligations. She has Medicare and a secondary insurance. Pt with questions re her insurance plan and other options. She has utilized the [employer] services at [facility] and referred her back to there to speak with her contact. Advance Directives: pt has completed her advance directive. Per her requested obtained a copy from [facility]. Pt reviewed the document and indicated she wants to make changes. Gave her a new [place] advance directive booklet/form to review and complete. We did not complete an ACP as she is unsure who she wants as her health care deicsion maker. Will follow up with her about this. Utilization of Community Resources: [employer] services. Pt receives her primary care at the [facility]. Pt agreeable to participate in the [place] Oncology Project. Discussed project and provided her with the brochure. SEAN Galeano RN, [facility] and informed her pt willing to participate. Adjustment to Illness/Mental Health Issues: Pt indicated she has been anxious about starting her treatments. She has asking a number of the same questions to different staff. Will need to clearly identify who is addressing which issue. In[facility] her of [facility] which might be an additional source of support for pt. Pt indicated she was aware of this. Identified Needs: With insurance related questions and referred to [facility] staff who she has utilized in the past. Referrals: [facility] Assessment: Support from a few friends. Need to better clarify this. With multiple and repeating questions and referring to best source to answer. Plan: Informed pt and friend of my availability. Will follow for support and resources. documented in this encounter Plan of Treatment Not on file documented as of this encounter Visit Diagnoses Not on filedocumented in this encounter Care Teams Bucket Hooker Relationship Specialty Start Date End Date Ag Trent MD [address] [place] [address] PCP - General 02/02/14 documented as of this encounter
--- OUTSIDE RECORDS SUMMARY | 2024-02-17 15:59 | XMS_ITS | Encounter Summary ---
Author Organization [facility] Address [facility] [place] [address] Care Team Providers Care Customer Retention Specialist Name Role Phone Ag Trent MD Primary Care Provider [phone] Encounter Details Date Type Department Care Team (Late st Contact Info) Description 03/17/2014 Orders Only Hematology [place] [phone] Kirill Saavedra MD [facility] [address] HEMAT[place] [address] Breast cancer, unspecified laterality (Primary Dx) Social History Tobacco Use Types Packs/Day Years [...] Diff) Lab Routine Breast cancer, unspecified laterality Expected: 03/18/2014 (Approximate), Expires: 03/17/2015 documented as of this encounter Results * (ABNORMAL) Comprehensive metabolic panel (non-fasting) (07/01/2014 12:28 PM EDT) Glucose 175 60 - 199 mg/dL CERNER MILLENNIUM Comment:Diabetes: >=200 mg/d L plus symptoms Blood Urea Nitrogen 15 8 - 18 mg/dL [facility] Creatinine 0.80 0.70 - 1.20 mg/dL CERNER MILLENNIUM Comment: Please note that the pediatric reference intervals supplied above were not validated at [facility]. Results from pediatric patients should be interpreted [...] the following links into your internet browser. [email or web address] Blood specimen (specimen) 07/01/2014 12:28 PM EDT 07/01/2014 12:43 PM EDT Narrative Resulting Agency Comment Spec In Lab Kirill Saavedra MD [facility]STRY [facility]ABLES [facility] documented in this encounter Visit Diagnoses Diagnosis Breast cancer, unspecified laterality- Primary documented in this encounter Care Teams Customer Retention Specialist Relationship Specialty Start Date End Date Ag Trent MD [address] [place] [address] PCP - General 02/02/14 documented as of this encounter
--- OUTSIDE RECORDS SUMMARY | 2024-02-17 15:59 | XMS_ITS | Encounter Summary ---
Author Organization [facility] Address [facility] [place] [address] Care Team Providers Care Sap Bi Developer Name Role Phone Ag Trent MD Primary Care Provider [phone] Reason for Visit * Reason Comments Follow-up Encounter Details Date Type Department Care Team (Late st Contact Info) Description 05/31/2014 10:00 AM EST Follow-Up Hematology Oncology at [address] [address] Kirill Saavedra MD [facility] HEMATOLOGY [place] [address] Breast cancer, left; Mucositis; Anxiety; Anemia, unspecified anemia type; Fatigue Discharge Disposition: Home Social History Tobacco [...] Sign Reading Time Taken Comments Blood Pressure 106/55 05/31/2014 9:45 AM EST Pulse 64 05/31/2014 9:45 AM EST Temperature 36.8 ??C (98.2 ??F) 05/31/2014 9:45 AM ES T Respiratory Rate 18 05/31/2014 9:45 AM EST Oxygen Saturation 96% 05/31/2014 9:45 AM EST Inhaled Oxygen Concentration - - Weight 84.6 kg (186 lb 8 oz) 05/31/2014 9:45 AM EST Height 161 cm (5' 3.39) 05/31/2014 9:45 AM EST Body Mass Index 32.64 05/31/2014 9:45 AM EST documented in this encounter Progress Notes * Kirill Saavedra MD - 05/31/2014 10:28 AM EST Diagnosis: 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 Subjective:I felt fatigued after chemo HPI: Mrs. Narda Rivera is 63 y.o. female Referred to us for consultation by Dr. Cohen on new diagnosis of breast cancer. She initially presenteda mass in her upper outer left breast with calcifications on a screening mammogram in December 2013.The main mass wasbiopsied showing infiltrating ductal andlobular carcinoma, ER positive, [id number]. MRI was then performed that showed the mass with multiple small satellites around it. Mrs. Rivera underwent left partial mastectomy and sentinel lymph node biopsy on February 23, 2014. Postoperative course was uneventful. Interval history: Mrs. Rivera is in clinic today for followup appointment and 2- nd dose of weekly Taxol. She complains on of more difficulties to follow for. She felt tired until the day before yesterday. She denies any fever, chills, vomiting or pain PMH: no interval changes Patient Active Problem List Diagnosis ??? Breast cancer, left breast ??? Other [...] or inguinal areas. Neurologic: Normal Vitals BP 106/55 Pulse 64 Temp(Src) 36.8 ??C (98.2 ??F) (Oral) Resp 18 Ht 161 cm (5' 3.39) Wt 84.596 kg (186 lb 8 oz) BMI 32.64 kg/m2 SpO2 96% Karnofsky score is 90 [...] count: Mitotic count: Score = 3 Total Vernal Score: Vernal Grade III: 8-9 points DCIS: Ductal Carcinoma [...] slide reconstruction) MICROCALCIFICATIONS: Present in nonneoplastic tissue ER/TX/HER2: ER/TX/Her2 Comment: Please see prior biopsy [id number]. HER2 FISH will be repeated on this [...] cancer cells with immunostaining) Stain Intensity: Strong TX immunoreactivity: Positive (11-90% cancer cells with immunostaining) Stain Intensity: Strong NEGATIVE FOR HER2/DEL AMPLIFICATION Labs: WBC 4.47, hemoglobin 11.9, platelet count 406, ANC 2.95, also 8.5, BUN 9, creatinine 0.6, albumin 3.0, alkaline phosphatase 75, potassium 3.1, AST 21, ALT 24. Imagin03/15/14, CT scan of chest, abdomen and pelvis: No evidence of abdominal pelvic metastatic disease.No evidence of thoracic metastatic disease. 8 cm fluid collection in the left breast. This likely reflects postsurgical change. 03/15/14 echocardiogram: normal biventricular size and systolic function; estimated LVEF 65%. 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 Hypokalemia: potassium 3.1 today, 20 mEq IV today, oral potassium supplementation 20 mEq a day 3. Anxiety:controlled on lorazepam 4. Mucositis: Carafate and/or miracle mouthwash PRN Plan: 1. Weekly Taxol today. 2. Next visit in 1 weeks with CBC, CMP and weekly Taxol Mrs. Rivera is accompanied by eyalsantonio today. The plan was discussed with the [...] Priority Date/Time Associated Diagnosis Comments LAB SCAN 05/31/2014 12:00 AM EST CHEMOTHERAPY SCAN 05/31/2014 12:00 AM EST documented in this encounter Results * SCAN DOC: CHEMOTHERAPY (05/31/2014 12:00 AM EST) Scanning Provider MEDIA MGR SCAN EXT O RDR/RSLT * SCAN DOC: LAB (05/31/2014 12:00 AM EST) Scanning Provider MEDIA MGR SCAN EXT O RDR/RSLT documented in this encounter Visit Diagnoses Diagnosis Breast cancer, left Malignant neoplasm of breast (female), unspecified site Mucositis Stomatitis and mucositis, unspecified Anxiety Anxiety state, unspecified Anemia, unspecified anemia type Fatigue Other malaise and fatigue documented in this encounter Care Teams Sap Bi Developer Relationship Specialty Start Date End Date Ag Trent MD [address] [place] [address] PCP - General 02/02/14 documented as of this encounter
--- OUTSIDE RECORDS SUMMARY | 2024-02-17 15:59 | XMS_ITS | Encounter Summary ---
Author Organization [facility] Address [facility] [place] [address] Care Team Providers Care Cellophane Press Operator Name Role Phone Ag Trent MD Primary Care Provider [phone] Encounter Details Date Type Department Care Team (Late st Contact Info) Description 05/03/2014 Notes Only [place]ology [place] [address] Kirill Saavedra MD [facility] DR HEMATOLOGY AND ONCOLOGY [place] [id number] Social History Tobacco Use Types Packs/Day Years [...] Progress Notes * Yulissa Mcguire RN - 05/04/2014 12:28 PM EST Research Nurse; Week 5 phone call 05/03/14 Control arm A [id number]: Effects of an Exercise Intervention on Physical Activity during Chemotherapy for Patients with Early Stage Breast Cancer Narda reported average steps of 776/day. She biked on her stationary bike 5 out of 7 days for 10 min each day. States she has to force herself but manages to do it. Feeling scale while exercising -2 to -3 = fairly bad to bad. Perceived exertion reported as fairly light - somewhat hard. Narda statedshe had a sore throat and felt wiped out but pleased that she managed to get on her stationary bike5 days. Narda is concerned that pedometer is not recording her steps correctly though. I will mail her a new pedometer. documented in this encounter Plan of Treatment Not on file documented as of this encounter Visit Diagnoses Not on filedocumented in this encounter Care Teams Cellophane Press Operator Relationship Specialty Start Date End Date Ag Trent MD [address] [place] [address] PCP - General 02/02/14 documented as of this encounter
--- OUTSIDE RECORDS SUMMARY | 2024-02-17 15:59 | XMS_ITS | Encounter Summary ---
Author Organization [facility] Address [facility] [place] [address] Care Team Providers Care Round Boner Name Role Phone Ag Trent MD Primary Care Provider [phone] Reason for Visit * Reason Comments Injections neulasta Follow-up 1St time chemo yeste rday Encounter Details Date Type Department Care Team (Late st Contact Info) Description 03/30/2014 12:00 PM EST Office Visit Hematology Oncology at [address] [address] CLINIC, DR [facility] HEM/ONC Karen Guadalupe, CARDIAC MONITOR Other specified prophylactic or treatment measure; Malignant [...] Sign Reading Time Taken Comments Blood Pressure 112/55 03/30/2014 12:07 PM EST Pulse 60 03/30/2014 12:07 PM EST Temperature 36.8 ??C (98.2 ??F) 03/30/2014 12:[address] Respiratory Rate 18 03/30/2014 12:07 PM EST Oxygen Saturation 98% 03/30/2014 12:07 PM EST Inhaled Oxygen Concentration - - Weight - - Height - - Body Mass Index - - documented in this encounter Progress Notes * Marie Eli RN - 03/30/2014 12:34 PM EST Infusion Note Diagnosis: Breast Cancer Treatment: Neulasta Injection/First Chemo Follow Up Patient states I did ok yesterday when I got home, I was a little tired. Dr. Saavedra gave me marinol, but it gives me a headache, I am doing what works for me. Patient complained of nausea, denied using any prescribed antiemetics. Neulasta 6mg injected in right arm. Patient aware of possible side effects. Patient aware to call clinic with any questions or concerns. Plan: Return to clinic as scheduled. documented in this encounter Plan [...] 6 mg, Subcutaneous, ONCE, 1 dose, On Fri03/30/14 at 1230, Routine Given 03/30/2014 12:15 PM EST 6 mg documented in this encounter Care Teams Round Boner Relationship Specialty Start Date End Date Ag Trent MD [address] [place] [address] PCP - General 02/02/14 documented as of this encounter
--- OUTSIDE RECORDS SUMMARY | 2024-02-17 15:59 | XMS_ITS | Encounter Summary ---
Author Organization [facility] [place] [address] Care Team Providers Care Securities Dealer Name Role Phone Ag Trent MD Primary Care Provider [phone] Reason for Referral * Physical Therapy (Routine) - Closed Specialty Diagnoses / Procedures Referred By Sary kee Referred To Contact Physical Therapy Diagnoses Malignant neoplasm of left female breast Kirill Saavedra MD [facility] [address] [place] [address] [facility] [place] [address] Referral ID Status Reason Start Date Expiration Date V isits Requested Visits Authorized [id number] Closed Evaluate and Treat 04/08/2014 04/08/2015 1 1 Encounter Details Date Type Department Care Team (Late st Contact Info) Description 04/08/2014 Orders Only Hematology Oncology at [address] [phone] Kirill Saavedra MD [facility] [address] [place] [address] Malignant neoplasm of left female breast (BREAST [...] of this encounter Plan of Treatment Scheduled Referrals Name Type Priority Associated Diagnoses Orde r Schedule Referral to Physical Therapy Outpatient Referral Routine Malignant neoplasm of left female breast (BREAST CANCER) Ordered: 04/08/2014 documented as of this encounter Visit Diagnoses Diagnosis Malignant neoplasm of left female breast (BREAST CANCER) Malignant neoplasm of breast (female), unspecified site documented in this encounter Care Teams Securities Dealer Relationship Specialty Start Date End Date Ag Trent MD [address] [place] [id number] PCP - General 02/02/14 documented as of this encounter
--- OUTSIDE RECORDS SUMMARY | 2024-02-17 15:59 | XMS_ITS | Encounter Summary ---
Author Organization [facility] Address [facility] [place] [address] Care Team Providers Care Safe Technician Name Role Phone Ag Trent MD Primary Care Provider Encounter Details Date Type Department Care Team (Late st Contact Info) Description 03/17/2014 Orders Only Hematology [place] [address] Kirill Saavedra MD [facility] DR HEMATOLOGY AND ONCOLOGY [place] [id number] Malignant neoplasm of left female breast Social [...] site documented in this encounter Care Teams Safe Technician Relationship Specialty Start Date End Date Ag Trent MD [address] [place] [address] PCP - General 02/02/14 documented as of this encounter
--- OUTSIDE RECORDS SUMMARY | 2024-02-17 15:59 | XMS_ITS | Encounter Summary ---
Author Organization [facility] Address [facility] [place] [address] Care Team Providers Care Signal Timer Name Role Phone Ag Trent MD Primary Care Provider [phone] Reason for Visit * Reason Comments Chemotherapy Taxol - cycle 2, day 1 (Dose 4) Encounter Details Date Type Department Care Team (Late st Contact Info) Description 06/14/2014 10:00 AM EDT Office Visit Hematology Oncology at [address] [phone] CLINIC, DR ARANGO HEM/ONC Kirill Saavedra MD [facility] HEMATOLOGY [place] [address] Breast cancer, left breast; Other specified prophylactic [...] Progress Notes * Manuela Pena RN - 06/14/2014 9:49 AM EDT INFUSION THERAPY ADMINISTRATION NOTES DIAGNOSIS: Breast CA CYCLE #: 2 day 1 (Dose 4) REASON FOR VISIT: Taxol Infusion SUBJECTIVE Ms. Rivera is here for her Taxol infusion. She offers no complaints. OBJECTIVE LAB DATA: wbc 3.79, hgb 12.1, plts 305k, anc 2.27 IV ACCESS: Mediport Pre administration: Chemotherapy orders independently verified for drug name, route, and dosage per patient's height, weight and BSA by Colten Pena RN and Luz Pizano Rph REACTIONS (DESCRIPTION, TIME, INTERVENTION AND EFFECTIVENESS) none ASSESSMENT Ms. Rivera was awake, alert and she tolerated treatment well. PLAN Return to clinic in one week for consideration of cycle 2, day 8 (dose 5) Taxol. She was reminded to call in the interim with any questions/concerns. documented in this encounter [...] 10 mg, Intravenous, ONCE, 1 dose, On Fri06/14/14 at 1015, Administer 30 minutes prior to PACLitaxel Given 06/14/2014 10:06 AM EDT 10 mg diphenhydrAMINE (BENADRYL) injection 25 mg 25 mg, Intravenous, ONCE, 1 dose, On Fri06/14/14 at 1015, Administer 30 minutes prior to PACLitaxel, Routine Given 06/14/2014 10:12 AM EDT 25 mg famotidine (PEPCID) infusion 20 mg 20 mg, Intravenous, ONCE, 1 dose, On Fri06/14/14 at 1015, Administer over 15 Minutes, Administer 30 minutes prior to PACLitaxel Given 06/14/2014 10:18 AM EDT 20 mg 200 mL/hr heparin, porcine 100 unit/mL flush 500 Units 500 Units, Intravenous, ONCE PRN, Starting on Fri06/14/14 at 0948, Until Fri06/14/14 at 1711, Line Care, Refer to Intravenous (IV) Procedure: Accessing Implanted Vascular Access Devices (488) procedure and/or Intravenous (IV) Job Aid: Adult Flushing & Catheter Care (2221) job aid for additional information regarding guidelines and administration., Routine Given 06/14/2014 12:55 PM EDT 500 Units ondansetron (ZOFRAN) tablet 16 mg 16 mg, Oral, ONCE, 1 dose, On Fri06/14/14 at 1015, Administer prior to chemotherapy, Routine Given 06/14/2014 10:04 AM EDT 16 mg PACLitaxel (TAXOL) 154 mg in dextrose 5% Non-PVC 275.6667 mL chemo infusion 154 mg (rounded from 154.4 mg = 80 mg/m2/dose ? 1.93 m2 Treatment Plan BSA from Recorded weight), Intravenous, ONCE, 1 dose, On Fri06/14/14 at 1115, Administer over 60 Minutes New Bag 06/14/2014 11:49 AM EDT 154 mg 275 mL/hr potassium chloride 20 mEq in 100 mL 20 mEq, Intravenous, ONCE, 1 dose, On Fri06/14/14 at 1000, Administer over 60 Minutes, Central line use only. Serum potassium 3.2. Given 06/14/2014 10:43 AM EDT 20 mEq 100 mL/hr sodium chloride 0.9 % flush 5-20 mL 5-20 mL, Intravenous, EVERY 1 MIN PRN, Starting on Fri06/14/14 at 0948, Until Fri06/14/14 at 1711, Line Care, Flush pertains to all indwelling lines. Flush per protocol found in the job aid using the link provided on this medication record. Refer to Intravenous (IV) Job Aid: Adult Flushing & Catheter Care (9856) job aid for additional information regarding guidelines and administration., Routine Given 06/14/2014 12:55 PM EDT 20 mLs documented in this encounter Care Teams Signal Timer Relationship Specialty Start Date End Date Ag Trent MD [address] [place] [address] PCP - General 02/02/14 documented as of this encounter
--- OUTSIDE RECORDS SUMMARY | 2024-02-17 15:59 | XMS_ITS | Encounter Summary ---
Author Organization [facility] Address [facility] [place] [address] Care Team Providers Care Collar Separator Name Role Phone Ag Trent MD Primary Care Provider [phone] Encounter Details Date Type Department Care Team (Late st Contact Info) Description 03/15/2014 Orders Only Hematology [place] [address] Kirill Saavedra MD [facility] [address] [place] [address] Social History Tobacco Use Types Packs/Day Years [...] Associated Diagnosis Comments FILM LIBRARY STORAGE ONLY CT CHEST ABDOMEN PELVIS Routine 03/15/2014 7:40 AM EST documented in this encounter Results * Film Library- Storage only CT Chest abdomen Pelvis (03/15/2014 7:40 AM EST) Anatomical Region Laterality Modality Chest, Abdomen, Pelvis Other 03/15/2014 7:40 AM EST Narrative 03/16/2014 7:40 AM EST This is a Non-reportable exam Procedure Note SURAJ, UNSIGNED REPORT - 03/16/2014 This is a Non-reportable exam Kirill Saavedra MD [facility] FILM LIBRARY ORD ERABLES documented in this encounter Visit Diagnoses Not on filedocumented in this encounter Care Teams Collar Separator Relationship Specialty Start Date End Date Ag Trent MD [address] [place] [address] PCP - General 02/02/14 documented as of this encounter
--- OUTSIDE RECORDS SUMMARY | 2024-02-17 15:59 | XMS_ITS | Encounter Summary ---
Author Organization [place] [address] Care Team Providers Care Lumber Piler Name Role Phone Ag Trent MD Primary Care Provider Encounter Details Date Type Department Care Team (Late st Contact Info) Description 03/14/2014 Orders Only Hematology Oncology at [address] [phone] Manuela Pena, RN Malignant neoplasm of left female breast (BREAST [...] site documented in this encounter Care Teams Lumber Piler Relationship Specialty Start Date End Date Ag Trent MD [address] [place] [address] PCP - General 02/02/14 documented as of this encounter
--- OUTSIDE RECORDS SUMMARY | 2024-02-17 15:59 | XMS_ITS | Encounter Summary ---
Author Organization [facility] [place] [address] Care Team Providers Care River Rat Name Role Phone Ag Trent MD Primary Care Provider Encounter Details Date Type Department Care Team (Late st Contact Info) Description 05/10/2014 Orders Only Hematology Oncology at [address] [phone] Ashley Elena, RN Mucositis Social History Tobacco [...] unspecified documented in this encounter Care Teams River Rat Relationship Specialty Start Date End Date Ag Trent MD [address] [place] [address] PCP - General 02/02/14 documented as of this encounter
--- OUTSIDE RECORDS SUMMARY | 2024-02-17 15:59 | XMS_ITS | Encounter Summary ---
Author Organization [facility] Address [facility] [place] [address] Care Team Providers Care Process Manufacturing Engineer Name Role Phone Ag Trent MD Primary Care Provider Encounter Details Date Type Department Care Team (Late st Contact Info) Description 05/24/2014 Orders Only Hematology Oncology at [address] [phone] Kirill Saavedra MD [facility] DR [place] [address] Malignant neoplasm of left female breast (BREAST [...] site documented in this encounter Care Teams Process Manufacturing Engineer Relationship Specialty Start Date End Date Ag Trent MD [address] [place] [address] PCP - General 02/02/14 documented as of this encounter
--- OUTSIDE RECORDS SUMMARY | 2024-02-17 15:59 | XMS_ITS | Encounter Summary ---
Author Organization [facility] Address [facility] [place] [address] Care Team Providers Care Tipple Repairer Name Role Phone Ag Trent MD Primary Care Provider [phone] Encounter Details Date Type Department Care Team (Late st Contact Info) Description 05/24/2014 1:30 PM EST Ancillary Appointment Hematology Oncology at [address] [phone] [address] [facility] [place] [address] Social History Tobacco Use Types Packs/Day Years [...] Progress Notes * Karen Padilla, TIN - 05/24/2014 10:37 AM EST [facility] Dietitian Follow Up Assessment Seen By: Trish Padilla, MS, RD, GUT SORTER, LD Patient and diagnosis: Was asked to meet with pt by Dr. Rollins, was only able to meet briefly d/t3 kg wt loss in one week and mouth sores. 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 Assessment: HPI: Patient Active Problem List Diagnosis Code ??? Malignant neoplasm of left female breast (BREAST CANCER) 174.9 ??? Other specified prophylactic or treatment measure V07.8 ??? Breast cancer, left breast 174.9 Meds: Labs: 05/24/14 reviewed, K 2.9, Dr. Quigley scripted supplement on 05/24 Wt: 83.4 kg on 05/24/14; gain Previous Wt: Oncology Vitals 05/10/2014 Weight 83.008 kg Height [...] to feel better from last cycle. Am: eggs and toast Noon: Pm: Bit of taco and apple Snacks: Supplements/Frequency: ___ Ensure/Plus ___ Boost/Plus ___ CIB ___ Other: Teas, vitamins, or other nutritional supplements: vit D Food allergies or avoidances: Appetite: decr d/t mouth sores Nausea: Vomiting: Chewing: Dentition: Swallowing: Taste Changes: hypoguesia Bowels: Food availability/purchasing, meal planning and preparation: Depression: Social Support: Economic Issues: Physical Activity: Level of Motivation/Readiness to Change: Nutrition Diagnosis: Met briefly with Narda initially and will complete full assessment in subsequent visit. Unable to meet with her today, but she reported to RNs that she declined to sheepskin pickler lydocaine as she felt it would not help reduce mouth sore pain. She was eating a sub during infusion. Wt is up thisweek. Will also review AICR's guidelines to reduce cancer recurrence. Nutrition Intervention: ? Increase caloric needs ? Modify diet consistency: ? Increase frequency of meals and snacks ? Need for supplements Nutrition Goals: Educational Handouts provided: -- High Valente Beverages -- Making the most of each bite -- Soft and moist high pro foods -- Taste and smell changes Other Recommendations: ? Please reinforce nutrition and physical activity goals ? Reinforce calorie, protein and fluid needs ? Please check with next lab draw ? May benefit from to help with nausea, early satiety, appetite stimulant, painful swallowingwith foods and liquids Monitoring and Evaluation: Will follow up with Ms. Rivera in 2-3 week (s) to re-evaluate. documented in this encounter Plan of Treatment Not on file documented as of this encounter Procedures Procedure Name Priority Date/Time Associated Diagnosis Comments LAB SCAN 05/24/2014 12:00 AM EST documented in this encounter Results * SCAN DOC: LAB (05/24/2014 12:00 AM EST) Scanning Provider MEDIA MGR SCAN EXT O RDR/RSLT documented in this encounter Visit Diagnoses Not on filedocumented in this encounter Care Teams Tipple Repairer Relationship Specialty Start Date End Date Ag Trent MD [address] [place] [address] PCP - General 02/02/14 documented as of this encounter
--- OUTSIDE RECORDS SUMMARY | 2024-02-17 15:59 | XMS_ITS | Encounter Summary ---
Author Organization [facility] Address [facility] [address] [address] Care Team Providers Care Adjunct Professor Of U.[place]. History Name Role Phone Ag Trent MD Primary Care Provider [phone] Reason for Visit * Reason Comments Follow-up Encounter Details Date Type Department Care Team (Late st Contact Info) Description 06/14/2014 9:00 AM EDT Follow-Up Hematology Oncology at [address] [phone] Kirill Saavedra MD [facility] DR HEMATOLOGY [place] [address] Breast cancer, left breast; Hypokalemia; Mucositis Discharge Disposition: Home Social History [...] Sign Reading Time Taken Comments Blood Pressure 117/65 06/14/2014 9:01 AM EDT Pulse 66 06/14/2014 9:01 AM EDT Temperature 36.7 ??C (98.1 ??F) 06/14/2014 9:01 AM ED T Respiratory Rate 18 06/14/2014 9:01 AM EDT Oxygen Saturation 96% 06/14/2014 9:01 AM EDT Inhaled Oxygen Concentration - - Weight 84.6 kg (186 lb 8 oz) 06/14/2014 9:01 AM EDT Height 161 cm (5' 3.39) 06/14/2014 9:01 AM EDT Body Mass Index 32.64 06/14/2014 9:01 AM EDT documented in this encounter Progress Notes * Kirill Saavedra MD - 06/14/2014 9:34 AM EDT Diagnosis: 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 Subjective:I feel okay and exercise daily HPI: Mrs. Narda Rivera is 63 y.o. female Referred to us for consultation by Dr. Cohen on new diagnosis of breast cancer. She initially presenteda mass in her upper outer left breast with calcifications on a screening mammogram in December 2013.The main mass wasbiopsied showing infiltrating ductal andlobular carcinoma, ER positive, [id number]. MRI was then performed that showed the mass with multiple small satellites around it. Mrs. Rivera underwent left partial mastectomy and sentinel lymph node biopsy on February 23, 2014. Postoperative course was uneventful. Interval history: Mrs. Rivera is in clinic today for followup appointment and 4- th dose of weekly Taxol. She noticed improvement in swallowing on carafate [...] or inguinal areas. Neurologic: Normal Vitals BP 117/65 Pulse 66 Temp(Src) 36.7 ??C (98.1 ??F) (Oral) Resp 18 Ht 161 cm [...] count: Score = 3 Total Khalif Score: [place] Grade III: 8-9 points DCIS: Ductal Carcinoma [...] slide reconstruction) MICROCALCIFICATIONS: Present in nonneoplastic tissue ER/GA/HER2: ER/GA/Her2 Comment: Please see prior biopsy [id number]. HER2 FISH will be repeated on this [...] cancer cells with immunostaining) Stain Intensity: Strong GA immunoreactivity: Positive (11-90% cancer cells with immunostaining) Stain Intensity: Strong NEGATIVE FOR HER2/DEL AMPLIFICATION Labs: WBC 3.79, Hg 12.1, platelt 305, ANC 2.27 calcium 8.8, BUN 10, Cr 0.7, AP 74, potassium 3.2, AST 287, ALT 42. Imagin03/15/14, CT scan of chest, abdomen and pelvis: No evidence of abdominal pelvic metastatic disease.No evidence of thoracic metastatic disease. 8 cm fluid collection in the left breast. This likely reflects postsurgical change. 03/15/14 echocardiogram: normal biventricular size and systolic function; estimated LVEF 65%. 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 Hypokalemia: potassium 3.2 today, IV 20 mEq of potassium, continue oral potassium supplementation to 20 mEq a day twice a day 3. Anxiety:controlled on lorazepam 4. Mucositis: Carafate and/or miracle mouthwash PRN Plan: 1. Weekly Taxol today. 2. Potassium IV today 3. Next visit in 1 weeks with CBC, CMP and weekly Taxol Mrs. Rivera is accompanied by her friend today. The plan was discussed with the patient in details. All questions were answered to patient's satisfaction. I would like to thank Dr. oChen and Dr. Trent for allowing me to participate in the care of this wonderful lady documented in this encounter Plan of Treatment Not on file documented as of this encounter Procedures Procedure Name Priority Date/Time Associated Diagnosis Comments LAB SCAN 06/14/2014 12:00 AM EDT LAB SCAN 06/14/2014 12:00 AM EDT CHEMOTHERAPY SCAN 06/14/2014 12:00 AM EDT documented in this encounter Results * SCAN DOC: CHEMOTHERAPY (06/14/2014 12:00 AM EDT) Scanning Provider MEDIA MGR SCAN EXT O RDR/RSLT * SCAN DOC: LAB (06/14/2014 12:00 AM EDT) Scanning Provider MEDIA MGR SCAN EXT O RDR/RSLT * SCAN DOC: LAB (06/14/2014 12:00 AM EDT) Scanning Provider MEDIA MGR SCAN EXT O RDR/RSLT documented in this encounter Visit Diagnoses Diagnosis Breast cancer, left breast Malignant neoplasm of breast (female), unspecified site Hypokalemia Hypopotassemia Mucositis Stomatitis and mucositis, unspecified documented in this encounter Care Teams Adjunct Professor Of U.S. History Relationship Specialty Start Date End Date Ag Trent MD [address] [place] [address] PCP - General 02/02/14 documented as of this encounter
--- OUTSIDE RECORDS SUMMARY | 2024-02-17 15:59 | XMS_ITS | Encounter Summary ---
Author Organization [facility] Address [facility] [address] Care Team Providers Care Glass Selector Name Role Phone Ag Trent MD Primary Care Provider [phone] Reason for Visit * Reason Comments Chemotherapy CY 3 day 1 Encounter Details Date Type Department Care Team (Late st Contact Info) Description 04/25/2014 12:00 PM EST Office Visit Hematology Oncology at [address] [phone] CLINIC, DR ARANGO HEM/ONC Other specified prophylactic or treatment measure; Malignant [...] Progress Notes * Marie Eli RN - 04/25/2014 1:15 PM EST INFUSION THERAPY ADMINISTRATION NOTES DIAGNOSIS: Breast Cancer CYCLE #:3 Day 1 REASON FOR VISIT: TUCKER BUCHANAN Narda armando no complaints. OBJECTIVE LAB DATA:WBC 17.32/Hgb 14/Hct 40.2/Plt 231/ANC 12.30/Potassium 3.1 IV ACCESS: Mediport Pre administration: Chemotherapy orders independently verified for drug name, route, and dosage per patient's height, weight and BSA by Marie Eli RN and Onsite Pharmacist. Administration as below-- Dexamethasone 10mg PO @ 1250 Ativan 0.5mg PO @ 1250 Aloxi 0.25mg IV @ 1251 Emend 150mg IV @ 2105-1860 Doxorubicin 118.2mg IVP over 5min each syringe @ 1409 Cyclophosphamide 1,182mg IV @ 7254-6001 REACTIONS (DESCRIPTION, TIME, INTERVENTION AND EFFECTIVENESS) none ASSESSMENT Narda was awake, alert and tolerated treatment well. PLAN Return to clinic per routine. documented in this encounter Plan of Treatment Not on file documented as of this encounter Procedures Procedure Name Priority Date/Time Associated Diagnosis Comments LAB SCAN 04/25/2014 12:00 AM EST documented in this encounter Results * SCAN DOC: LAB (04/25/2014 12:00 AM EST) Scanning Provider MEDIA MGR SCAN EXT O RDR/RSLT documented in this encounter Visit Diagnoses Diagnosis Other specified [...] Recorded weight), Intravenous, ONCE, 1 dose, On Fri04/25/14 at 1345, Administer over 30 Minutes New Bag 04/25/2014 2:22 PM EST 1,182 mg 618.2 mL/hr dexamethasone (DECADRON) tablet 10 mg 10 mg, Oral, ONCE, 1 dose, On Fri04/25/14 at 1245, Administer prior to chemotherapy, Routine Given 04/25/2014 12:50 PM EST 10 mg DOXOrubicin (ADRIAMYCIN) chemo injection 118.2 mg 118.2 mg (60 mg/m2/dose ? 1.97 m2 Treatment Plan BSA from Recorded weight), Intravenous, ONCE, 1 dose, On Fri04/25/14 at 1345, Administer each syringe over a minimum of 3 minutes per syringe. Each Syringe contains 39.4 mg in 19.7 mL. Given 04/25/2014 2:09 PM EST 118.2 mg fosaprepitant (EMEND) 150 mg in sodium chloride 0.9% 155 mL infusion 150 mg, Intravenous, ONCE, 1 dose, On Fri04/25/14 at 1245, Administer over 30 Minutes, Administer prior to chemotherapy New Bag 04/25/2014 1:00 PM EST 150 mg 310 mL/hr LORazepam (ATIVAN) tablet 0.5 mg 0.5 mg, Oral, ONCE, 1 dose, On Fri04/25/14 at 1245, Administer prior to chemotherapy, Routine Given 04/25/2014 12:50 PM EST 0.5 mg palonosetron (ALOXI) injection 0.25 mg 0.25 mg, Intravenous, ONCE, 1 dose, On Fri04/25/14 at 1245, Administer over 30 seconds. Administer prior to chemotherapy, Routine Given 04/25/2014 12:51 PM EST 0.25 mg documented in this encounter Care Teams Glass Selector Relationship Specialty Start Date End Date Ag Trent MD [address] [place] [address] PCP - General 02/02/14 documented as of this encounter
--- OUTSIDE RECORDS SUMMARY | 2024-02-17 15:59 | XMS_ITS | Encounter Summary ---
Author Organization [facility] Address [facility] [place] [address] Care Team Providers Care Manager Lsw Name Role Phone Ag Trent MD Primary Care Provider [phone] Encounter Details Date Type Department Care Team (Latest Contact Info) Description 03/22/2014 10:09 AM EST - 03/22/2014 11:59 PM [facility] Hospital Encounter Hematology [place] [phone] Kirill Saavedra MD [facility] DR [place] [address] Discharge Disposition: Home Social History Tobacco Use [...] Priority Date/Time Associated Diagnosis Comments LAB SCAN 04/11/2014 12:00 AM EST ECHO SCAN (SCAN) 03/15/2014 12:00 AM EST documented in this encounter Results * SCAN DOC: LAB (04/11/2014 12:00 AM EST) Scanning Provider MEDIA MGR SCAN EXT O RDR/RSLT * SCAN DOC: ECHO (03/15/2014 12:00 AM EST) Anatomical Region Laterality Modality Other Scanning Provider MEDIA MGR SCAN EXT O RDR/RSLT documented in this encounter Visit Diagnoses Not on filedocumented in this encounter Care Teams Manager Lsw Relationship Specialty Start Date End Date Ag Trent MD [address] [place] [address] PCP - General 02/02/14 documented as of this encounter
--- OUTSIDE RECORDS SUMMARY | 2024-02-17 15:59 | XMS_ITS | Encounter Summary ---
Author Organization [facility] Address [facility] [place] [address] Care Team Providers Care Laundry Or Dry Cleaners Counter Clerk Name Role Phone Ag Trent MD Primary Care Provider [phone] Encounter Details Date Type Department Care Team (Late st Contact Info) Description 05/25/2014 Notes Only Hematology [place] [address] Kirill Saavedra MD [facility] DR HEMATOLOGY AND ONCOLOGY [place] [phone] Social History Tobacco Use Types Packs/Day Years [...] Notes * Yulissa Mcguire RN - 05/26/2014 3:53 PM EST Research Study Note; Week 8 phone call 05/25/14 Control arm A [id number]: Effects of an Exercise Intervention on Physical Activity during Chemotherapy for Patients with Early Stage Breast Cancer Narda reported that she had a better week and had been able to bike on her stationary bike 6 of 7 days, 10 min each day at a moderate and brisk rate. Her feeling about her exercising ranges from fairly bad to fairly good. Her daily average steps = 2,072. Narda stated she thinks the new pedometer works better. She also requested her weekly calls to be on Wednesdays as she gets benadryl with her chemo now which makes her very tired. She agreed that she is continuing on study and next call will benext Friday. documented in this encounter Plan of Treatment Not on file documented as of this encounter Visit Diagnoses Not on filedocumented in this encounter Care Teams Laundry Or Dry Cleaners Counter Clerk Relationship Specialty Start Date End Date Ag Trent MD [address] [place] [address] PCP - General 02/02/14 documented as of this encounter
--- OUTSIDE RECORDS SUMMARY | 2024-02-17 15:59 | XMS_ITS | Encounter Summary ---
Author Organization [facility] Address [facility] [place] [address] Care Team Providers Care Director Network Development Name Role Phone Ag Trent MD Primary Care Provider [phone] Reason for Visit * Reason Comments Injections Neulasta Encounter Details Date Type Department Care Team (Late st Contact Info) Description 04/13/2014 11:00 AM EST Office Visit Hematology Oncology at [address] [phone] CL[address], [address] ARANGO HEM/ONC Susan Mccracken MD [facility] HEMATOLOGY [place] [address] Other specified prophylactic or treatment measure; Malignant [...] Sign Reading Time Taken Comments Blood Pressure 122/68 04/13/2014 11:20 AM EST Pulse 64 04/13/2014 11:20 AM EST Temperature 36.8 ??C (98.2 ??F) 04/13/2014 11:[address] Respiratory Rate 16 04/13/2014 11:20 AM EST Oxygen Saturation 98% 04/13/2014 11:20 AM EST Inhaled Oxygen Concentration - - Weight - - Height - - Body Mass Index - - documented in this encounter Progress Notes * Marie Eli RN - 04/13/2014 11:55 AM EST Infusion Note Diagnosis: Breast Cancer Treatment: Neulasta Injection Neulasta 6mg injected in right arm. Patient aware to call clinic with any [...] 6 mg, Subcutaneous, ONCE, 1 dose, On Fri04/13/14 at 1130, Routine Given 04/13/2014 11:25 AM EST 6 mg Righ t Arm documented in this encounter Care Teams Director Network Development Relationship Specialty Start Date End Date Ag Trent MD [address] [place] [address] PCP - General 02/02/14 documented as of this encounter
--- OUTSIDE RECORDS SUMMARY | 2024-02-17 15:59 | XMS_ITS | Encounter Summary ---
Author Organization [facility] [place] [address] Care Team Providers Care Repairer Veneer Sheet Name Role Phone Ag Trent MD Primary Care Provider [phone] Reason for Visit * Reason Comments Injections neulasta Encounter Details Date Type Department Care Team (Late st Contact Info) Description 05/11/2014 1:00 PM EST Office Visit Hematology Oncology at [address] [phone] CLINIC, DR ARANGO HEM/ONC Meenakshi Sanchez, ICT EDUCATOR [address] [facility] [place] [address] Other specified prophylactic or treatment measure; Malignant [...] Progress Notes * Marie Eli RN - 05/11/2014 1:48 PM EST Infusion Note Diagnosis: Breast Cancer [...] 6 mg, Subcutaneous, ONCE, 1 dose, On Fri05/11/14 at 1345, Routine Given 05/11/2014 1:29 PM EST 6 mg Right Arm documented in this encounter Care Teams Repairer Veneer Sheet Relationship Specialty Start Date End Date Ag Trent MD [address] [place] [address] PCP - General 02/02/14 documented as of this encounter
--- OUTSIDE RECORDS SUMMARY | 2024-02-17 15:59 | XMS_ITS | Encounter Summary ---
Author Organization [facility] Address [facility] [place] [address] Care Team Providers Care Bogger Operator Name Role Phone Ag Trent MD Primary Care Provider [phone] Encounter Details Date Type Department Care Team (Late st Contact Info) Description 05/10/2014 10:30 AM EST Follow-Up Hematology Oncology at [address] [address] Kirill Saavedra MD [facility] DR HEMATOLOGY [place] [address] Breast cancer, left (Primary Dx); Mucositis Discharge Disposition: Home Social History Tobacco [...] Sign Reading Time Taken Comments Blood Pressure 118/71 05/10/2014 10:37 AM EST Pulse 78 05/10/2014 10:37 AM EST Temperature 36.9 ??C (98.4 ??F) 05/10/2014 10:[address] Respiratory Rate 18 05/10/2014 10:37 AM EST Oxygen Saturation 96% 05/10/2014 10:37 AM EST Inhaled Oxygen Concentration - - Weight 83 kg (183 lb) 05/10/2014 10:37 AM EST Height 161 cm (5' 3.39) 05/10/2014 10:37 AM EST Body Mass Index 32.02 05/10/2014 10:37 AM EST documented in this encounter Progress Notes * Kirill Saavedra MD - 05/10/2014 11:12 AM EST Diagnosis: 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 Subjective:I felt nauseated, but I did not throw up HPI: Mrs. Narda Rivera is 63 y.o. female Referred to us for consultation by Dr. Cohen on new diagnosis of breast cancer. She initially presenteda mass in her upper outer left breast with calcifications on a screening mammogram in December 2013.The main mass wasbiopsied showing infiltrating ductal andlobular carcinoma, ER positive, [id number]. MRI was then performed that showed the mass with multiple small satellites around it. Mrs. Rivera underwent left partial mastectomy and sentinel lymph node biopsy on February 23, 2014. Postoperative course was uneventful. Interval history: Mrs. Rivera is in clinic today for followup appointment and 4- th cycle of chemotherapy. She gets easily fatigue.The food does not taste well. Narda denies any fever, chills, nausea, vomiting, chest pain or shortness of breath as well as swelling of legs. She complains on sore throat. PMH:Hypertension, hypercholesterolemia, hypothyroidism, osteoarthritis, history of knee [...] normal, no drainage or sinus tenderness Throat: Mouth sore on left buccal surface; teeth and gums normal Neck: Supple, symmetrical, [...] or inguinal areas. Neurologic: Normal Vitals BP 118/71 Pulse 78 Temp(Src) 36.9 ??C (98.4 ??F) (Oral) Resp 18 Ht 161 cm (5' 3.39) Wt 83.008 kg (183 lb) BMI 32.02 kg/m2 SpO2 96% Karnofsky score is 90 [...] count: Score = 3 Total Khalif Score: [place] Grade III: 8-9 points DCIS: Ductal Carcinoma [...] slide reconstruction) MICROCALCIFICATIONS: Present in nonneoplastic tissue ER/NJ/HER2: ER/NJ/Her2 Comment: Please see prior biopsy [id number]. HER2 FISH will be repeated on this [...] cancer cells with immunostaining) Stain Intensity: Strong NJ immunoreactivity: Positive (11-90% cancer cells with immunostaining) Stain Intensity: Strong NEGATIVE FOR HER2/DEL AMPLIFICATION Labs: WBC 14.9, hemoglobin 14, platelet count 203 2, ANC 11.5, ALT of 9.5, BUN 13, creatinine 0.8, albumin 3.4, alkaline phosphatase 123, AST 15, ALT 23. Imagin03/15/14, CT scan of chest, abdomen and pelvis: No evidence of abdominal pelvic metastatic disease.No evidence of thoracic metastatic disease. 8 cm fluid collection in the left breast. This likely reflects postsurgical change. 03/15/14 echocardiogram: normal biventricular size and systolic function; estimated LVEF 65%. 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 Will treat it with miracle mouthwash. Will proceed with cycle 4 ofAC. We discussed risks and benefits of to Taxol 80 mg/m2 weekly total of 12 weeks. There there was survival benefit confermed in phase 3 trial. Talk about risk which include but not limited to nausea, vomiting, numbness and tingling in the extremities, allergic reaction, low blood counts requiring transfusion, life- threatening infections. Informed verbal consent was obtained. We'll start weekly Taxol in 2 weeks 2. Hypokalemia: resolved, potassium 3.5 today, TURP oral potassium supplementation 3. Anxiety:controlled on lorazepam Plan: 1. Dose dense AC today, neulasta tomorrow. 2. Next visit in 2 weeks with CBC, CMP and weekly Taxol Mrs. Rivera is accompanied by everett today. The plan was discussed with the patient in details. All questions were answered to patient's satisfaction. I would like to thank Dr. Cohen and Dr. Trent for allowing me to participate in the care of this wonderful lady documented in this encounter Plan of Treatment Not on file documented as of this encounter Visit Diagnoses Diagnosis Breast cancer, left- Primary Malignant neoplasm of breast (female), unspecified site Mucositis Stomatitis and mucositis, unspecified documented in this encounter Care Teams Bogger Operator Relationship Specialty Start Date End Date Ag Trent MD [address] [place] [address] PCP - General 02/02/14 documented as of this encounter
--- OUTSIDE RECORDS SUMMARY | 2024-02-17 15:59 | XMS_ITS | Encounter Summary ---
Author Organization [facility] Address [facility] [place] [address] Care Team Providers Care Engraving Press Operator Name Role Phone Ag Trent MD Primary Care Provider [phone] Reason for Visit * Reason Comments Chemotherapy AC - CY 2 day 1 Encounter Details Date Type Department Care Team (Late st Contact Info) Description 04/12/2014 10:30 AM EST Office Visit Hematology Oncology at [address] [phone] CLINIC, DR ARANGO HEM/ONC Other [...] Progress Notes * Marie Eli RN - 04/12/2014 12:40 PM EST INFUSION THERAPY ADMINISTRATION NOTES DIAGNOSIS: Breast Cancer CYCLE #:2 day 1 REASON FOR VISIT: AC SUBJECTIVE Narda offers no complaints. OBJECTIVE LAB DATA:WNL IV ACCESS: Mediport Pre administration: Chemotherapy orders independently verified for drug name, route, and dosage per patient's height, weight and BSA by Marie Eli RN and Onsite Pharmacist. REACTIONS (DESCRIPTION, TIME, INTERVENTION AND EFFECTIVENESS) none ASSESSMENT Narda was awake, alert and tolerated treatment well. Narda rec'd 20meq KCL in 500cc over 1 hour forpotassium level of 3.3 PLAN Return to clinic per routine. documented [...] Recorded weight), Intravenous, ONCE, 1 dose, On Fri04/12/14 at 1230, Administer over 30 Minutes New Bag 04/12/2014 1:12 PM EST 1,182 mg 618.2 mL/hr dexamethasone (DECADRON) tablet 10 mg 10 mg, Oral, ONCE, 1 dose, On Fri04/12/14 at 1130, Administer prior to chemotherapy, Routine Given 04/12/2014 11:20 AM EST 10 mg DOXOrubicin (ADRIAMYCIN) chemo injection 118.2 mg 118.2 mg (60 mg/m2/dose ? 1.97 m2 Treatment Plan BSA from Recorded weight), Intravenous, ONCE, 1 dose, On Fri04/12/14 at 1230, Administer each syringe over a minimum of 3 minutes per syringe. For a total of three syringes (39.4 mg/19.7 ml per syringe). Given 04/12/2014 12:53 PM EST 118.2 mg fosaprepitant (EMEND) 150 mg in sodium chloride 0.9% 155 mL infusion 150 mg, Intravenous, ONCE, 1 dose, On Fri04/12/14 at 1130, Administer over 30 Minutes, Administer prior to chemotherapy New Bag 04/12/2014 11:40 AM EST 150 mg 310 mL/hr heparin, porcine 100 unit/mL flush 500 Units 500 Units, Intravenous, ONCE PRN, Starting on Fri04/12/14 at 1101, Until Fri04/12/14 at 1639, Line Care, Refer to Intravenous (IV) Procedure: Accessing Implanted Vascular Access Devices (554) procedure and/or Intravenous (IV) Job Aid: Adult Flushing & Catheter Care (8541) job aid for additional information regarding guidelines and administration., Routine Given 04/12/2014 2:20 PM EST 500 Units LORazepam (ATIVAN) tablet 0.5 mg 0.5 mg, Oral, ONCE, 1 dose, On Fri04/12/14 at 1130, Administer prior to chemotherapy, Routine Given 04/12/2014 11:20 AM EST 0.5 mg palonosetron (ALOXI) injection 0.25 mg 0.25 mg, Intravenous, ONCE, 1 dose, On Fri04/12/14 at 1130, Administer over 30 seconds. Administer prior to chemotherapy, Routine Given 04/12/2014 11:20 AM EST 0.25 mg sodium chloride 0.9 % flush 5-20 mL 5-20 mL, Intravenous, EVERY 1 MIN PRN, Starting on Fri04/12/14 at 1101, Until Fri04/12/14 at 1639, Line Care, Flush pertains to all indwelling lines. Flush per protocol found in the job aid using the link provided on this medication record. Refer to Intravenous (IV) Job Aid: Adult Flushing & Catheter Care (0924) job aid for additional information regarding guidelines and administration., Routine Given 04/12/2014 2:20 PM EST 20 mLs sodium chloride 0.9% 500 mL with potassium chloride 20 mEq infusion Intravenous, ONCE, 1 dose, On Fri04/12/14 at 1315, Administer over 1 Hours New Bag 04/12/2014 1:15 PM EST 510 mL/hr documented in this encounter Care Teams Engraving Press Operator Relationship Specialty Start Date End Date Ag Trent MD [address] [place] [address] PCP - General 02/02/14 documented as of this encounter
--- OUTSIDE RECORDS SUMMARY | 2024-02-17 15:59 | XMS_ITS | Encounter Summary ---
Author Organization [facility] Address [facility] [place] [address] Care Team Providers Care Day Care Aide Name Role Phone Ag Trent MD Primary Care Provider [phone] Encounter Details Date Type Department Care Team (Late st Contact Info) Description 06/08/2014 Notes Only Hematology [place] [address] Kirill Saavedra MD [facility] DR HEMATOLOGY AND ONCOLOGY [place] [id number] Social History Tobacco Use Types Packs/Day Years [...] Progress Notes * Yulissa Mcguire RN - 06/08/2014 4:19 PM EDT Research Study Note; Week 10 phone call 06/08/14 Control arm A [id number]: Effects of an Exercise Intervention on Physical Activity during Chemotherapy for Patients with Early Stage Breast Cancer Narda using her stationary bike 6/7 days in the past week for 10 minutes each time at an exertion rate of 12 each day which translates to moderate exercise on the WAQAS RPE scale. Her daily average steps increased to 3,570. This increase reflects her comments that she is feeling pretty good and has felt like getting out more. She is feeling neutral about her bike exercising, not good, not bad. She asked if she could walk instead of biking now as the weather is getting nicer. It told her this is fine and asked her to document what she did. She had no other questions or concerns about her participation in the study. She agreed that I can call her again next Friday. documented in this encounter Plan of Treatment Not on file documented as of this encounter Visit Diagnoses Not on filedocumented in this encounter Care Teams Day Care Aide Relationship Specialty Start Date End Date Ag Trent MD [address] [place] [address] PCP - General 02/02/14 documented as of this encounter
--- OUTSIDE RECORDS SUMMARY | 2024-02-17 15:59 | XMS_ITS | Encounter Summary ---
Author Organization [facility] Address [facility] [place] [address] Care Team Providers Care Manager Generation Name Role Phone Ag Trent MD Primary Care Provider [phone] Reason for Visit * Reason Comments Chemotherapy AC - 4 Encounter Details Date Type Department Care Team (Late st Contact Info) Description 05/10/2014 11:30 AM EST Office Visit Hematology Oncology at [address] [phone] CLINIC, DR ARANGO HEM/ONC Other [...] Progress Notes * Marie Eli RN - 05/10/2014 3:19 PM EST INFUSION THERAPY ADMINISTRATION NOTES DIAGNOSIS: Breast Cancer CYCLE #:4 REASON FOR VISIT: AC SUBJECTIVE Narda offers no complaints. OBJECTIVE LAB DATA:WNL IV ACCESS: Mediport Pre administration: Chemotherapy orders independently verified for drug name, route, and dosage per patient's height, weight and BSA by Marie Eli RN and Onsite Pharmacist. Emend infused [id number] Cytoxan infused [id number] REACTIONS (DESCRIPTION, TIME, INTERVENTION AND EFFECTIVENESS) none [...] Recorded weight), Intravenous, ONCE, 1 dose, On e 05/10/14 at 1300, Administer over 30 Minutes New Bag 05/10/2014 1:38 PM EST 1,182 mg 618.2 mL/hr dexamethasone (DECADRON) tablet 10 mg 10 mg, Oral, ONCE, 1 dose, On Fri05/10/14 at 1200, Administer prior to chemotherapy, Routine Given 05/10/2014 11:55 AM EST 10 mg DOXOrubicin (ADRIAMYCIN) chemo injection 118.2 mg 118.2 mg (60 mg/m2/dose ? 1.97 m2 Treatment Plan BSA from Recorded weight), Intravenous, ONCE, 1 dose, On Tu05/10/14 at 1300, Administer each syringe over a minimum of 3 minutes per syringe. Each Syringe contains 39.4 mg in 19.7 mL. Given 05/10/2014 1:22 PM EST 118.2 mg fosaprepitant (EMEND) 150 mg in sodium chloride 0.9% 155 mL infusion 150 mg, Intravenous, ONCE, 1 dose, On 05/10/14 at 1200, Administer over 30 Minutes, Administer prior to chemotherapy New Bag 05/10/2014 12:40 PM EST 150 mg 310 mL/hr LORazepam (ATIVAN) tablet 0.5 mg 0.5 mg, Oral, ONCE, 1 dose, On 05/10/14 at 1200, Administer prior to chemotherapy, Routine Given 05/10/2014 11:56 AM EST 0.5 mg palonosetron (ALOXI) injection 0.25 mg 0.25 mg, Intravenous, ONCE, 1 dose, On 05/10/14 at 1200, Administer over 30 seconds. Administer prior to chemotherapy, Routine Given 05/10/2014 11:55 AM EST 0.25 mg documented in this encounter Care Teams Manager Generation Relationship Specialty Start Date End Date Twan, Ag H, MD [address] [place] [address] PCP - General 02/02/14 documented as of this encounter
--- OUTSIDE RECORDS SUMMARY | 2024-02-17 15:59 | XMS_ITS | Encounter Summary ---
Author Organization [facility] [place] [address] Care Team Providers Care Lens Hardener Name Role Phone Ag Trent MD Primary Care Provider [phone] Encounter Details Date Type Department Care Team (Late st Contact Info) Description 04/05/2014 Notes Only Hematology [place] [address] Yulissa Mcguire Social History Tobacco Use Types Packs/Day Years [...] on filedocumented in this encounter Care Teams Lens Hardener Relationship Specialty Start Date End Date Ag Trent MD [address] [place] [address] PCP - General 02/02/14 documented as of this encounter
--- OUTSIDE RECORDS SUMMARY | 2024-02-17 15:59 | XMS_ITS | Encounter Summary ---
Author Organization [facility] Address [facility] [place] [address] Care Team Providers Care Dictating Machine Transcriber Name Role Phone Ag Trent MD Primary Care Provider [phone] Encounter Details Date Type Department Care Team (Late st Contact Info) Description 03/22/2014 10:00 AM EST Office [place] [address] Jillian Kaur, PT [facility] PHYSICAL MEDICINE & [place] [address] Kirill Saavedra MD [facility] [place] [address] Breast swelling Discharge Disposition: Home Social History Tobacco Use Types Packs/Day Years Used Date Smoking Tobacco: Never Alcohol Use Standard Drinks/Week Comments No 0 (1 standard drink = 0.6 oz pur e alcohol) Sex and Gender Information Value Date Recorded Sex Assigned at Not on file Gender Identity Not on file Sexual Orientation Not on file documented as of this encounter Progress Notes * Jillian Kaur, PT - 03/22/2014 10:15 AM EST PHYSICAL THERAPY EVALUATION Date of Exam/First treatment: 03/22/14 Date of Onset 02/22/14 Referring Provider: Kirill Saavedra Diagnosis: breast swelling total treatment time: 60 minutes total timed code treatment minutes: 60 1 evaluation Medicare cert 03/22/14-06/20/14 CURRENT HISTORY: Narda Rivera is a 63 y.o. female s/p lumpectomy L sided for . 2+/2 nodes positive. No complications. Adjuvant Treatment pending: Chemotherapy , Radiation, Hormonal, Social: Pt. 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 Pt is at risk of lymphedema with 2+/2 nodes and up coming XRT CLINICAL FINDINGS: Posture: Forward shoulders Range of Motion: Right Left Sh flexion 170 170 Sh abduction 170 170 ER 80 80 IR 25 25 Strength: 5/5 Palpation/inspection: L breast scar tethered down with poor mobility, L breast full swollen, not painful to touch, area firm under scar G-Code: Other PT/OT Primary Status Modifier CURRENT CI - At least 1 percent but less than 20 percent impaired, limited or restricted PROJECTED CI - At least 1 percent but less than 20 percent impaired, limited or restricted DISCHARGE CI - At least 1 percent but less than 20 percent impaired, limited or restricted G Code Rationale: This G-Code and these disability modifiers were selected as the primary therapy goal based upon the patient's evaluation including the following functional test(s) No Functional Measure Used. Current ability measures, co-morbidities and clinical judgement were also used to select the disability modifier. Ms. Rivera's current G-Code functional level is 20% impaired based upon pt eval and reported discomfort. CLINICAL EVALUATION AND DIAGNOSIS: pt with good rom and strength with L swollen breast with poor mobility in breast to benefit from education about importance of ex, lymphedema precautions and manualtherapy to soften breast and mobilize scar tissue. The patient's rehabilitation potential is good. GOALS: Therapy Short Term Goals: 2 weeks 1. Increase scar mobility by 25% per subjective of pt/PT 2. Pt understands and verbalizes lymphedema precautions 3. Pt exercising 10 min 5 days a week Therapy Shelter Goals: 6 weeks 1. Full scar mobility 2. Pt exercising 5 X day 15-20 min INITIAL TREATMENT INCLUDED: Evaluation, education about importance of exercise, manual therapy including scar massage and MLD working towards R and measurement with bio impedence machine. With following numbers: E 16.90 I 21.12 liters T 38.01 L 50.8 Kg Pt's number is 104 Pt is 5'2 at 192 lbs Plan: Pt to have follow up closer to her home near [facility] with Zena Martin PT Treatment: As needed per primary therapist Frequency and Duration: Follow up with Zena Martin in [facility] The plan has been discussed with the patient and she has agreed with it. @ak documented in this encounter Plan of Treatment Not on file documented as of this encounter Visit Diagnoses Diagnosis Breast swelling Lump or mass in breast documented in this encounter Care Teams Dictating Machine Transcriber Relationship Specialty Start Date End Date Ag Trent MD [address] [place] [address] PCP - General 02/02/14 documented as of this encounter
--- OUTSIDE RECORDS SUMMARY | 2024-02-17 15:59 | XMS_ITS | Encounter Summary ---
Author Organization [facility] Address [facility] [place] [address] Care Team Providers Care Loader Magazine Grinder Name Role Phone Ag Trent MD Primary Care Provider [phone] Reason for Visit * Reason Comments Other Encounter Details Date Type Department Care Team (Late st Contact Info) Description 04/05/2014 Telephone Hematology [place] [id number] Yulissa Mcguire Social History Tobacco Use Types [...] encounter Miscellaneous Notes * Telephone Encounter - Susana Mohamud RN - 05/03/2014 10:49 AM EST ----- Message from Josie Rosenberg sent at 05/03/2014 9:29 AM EST ----- Regarding: call back Patient called, has a sore throat. Please call her. Returned telephone call to patient. She reports that she has had a sore throat that started the dayafter she got her neulasta injection on 04/27/14 and has not gotten better. She describes it as scratchy and painful when she swallows. She declines to assign a level to it but says that it is not normal for her to have a sore throat so long although it is common for her to be dry in the winter as she heats with wood. She has set up humidification which has not been helpful.. She thought that she had some lesions on her tongue yesterday but does not seem to today and denies any oral pain. She does feel a little hoarse. She reports that she is taking adequate nutrition in spite of the change inher taste buds and says that she is drinking at least a liter of fluid daily. She has been afebrileand running 98.6 orally. She is monitoring her temperature daily. I instructed her to mix up bakingsoda/salt water rinse ( 1 quart warm water/1 tsp salt/1 tsp baking soda) and to gargle at least 4 times daily with this along with the rationale. Instructed to eat soft foods and avoid foods with sharp edges and spicy or acid foods. Instructed to be sure to drink at least 8 eight ounce cups daily of fluids that do not contain caffeine. I reviewed medication allergies and instructed that she can take over the counter analgesic per labeling instructions prn. She restates good understanding and will do so. She states that she knows that she can call back should symptoms worsen or she develops any other problems or concerns. She says that she is managing her nausea and constipation at this time. I will confer with MD and let her know of any additional recommendations. She says that she will be available at her home phone the rest of today. documented in this encounter Plan of Treatment Not on file documented as of this encounter Visit Diagnoses Not on filedocumented in this encounter Care Teams Loader Magazine Grinder Relationship Specialty Start Date End Date Ag Trent MD [address] [place] [address] PCP - General 02/02/14 documented as of this encounter
--- OUTSIDE RECORDS SUMMARY | 2024-02-17 15:59 | XMS_ITS | Encounter Summary ---
Author Organization [facility] Address [facility] [place] [address] Care Team Providers Care Communication Equipment Repairer Name Role Phone Ag Trent MD Primary Care Provider [phone] Encounter Details Date Type Department Care Team (Late st Contact Info) Description 05/10/2014 Notes Only [place]ology [place] [address] Kirill Saavedra MD [facility] DR HEMATOLOGY AND ONCOLOGY [place] [id number] Social History Tobacco Use Types Packs/Day Years Used Date Smoking Tobacco: Never Smokeless Tobacco: Never Alcohol Use Standard Drinks/Week Comments No 0 (1 standard drink = 0.6 oz pur e alcohol) Sex and Gender Information Value Date Recorded Sex Assigned at Not on file Gender Identity Not on file Sexual Orientation Not on file documented as of this encounter Progress Notes * uYlissa Mcguire RN - 05/10/2014 3:41 PM EST Research Nurse; Week 6 phone call 05/10/14 Control arm A [id number]: Effects of an Exercise Intervention on Physical Activity during Chemotherapy for Patients with Early Stage Breast Cancer Narda reported average steps of 1055/day. She biked on her stationary bike every day this week for 10 min each day. Feeling scale while exercising -2 and -1 first days of the week then neutral (0). Perceived exertion reported as fairly light - somewhat hard. Narda is keeping up with her goal set ather initial standard of care PT appointment (exercising 10 min 5 days a week). She received her newpedometer and started using it the 3rd day this week. It is unclear to her if it is more accurate but will check by wearing both pedometers to see if they record about the same steps. Narda states her energy level is generally low but best in the morning . She generally does not get around to bike until the afternoon as she spends her day reading and crocheting and spending time with a visiting friend. documented in this encounter Plan of Treatment Not on file documented as of this encounter Visit Diagnoses Not on filedocumented in this encounter Care Teams Communication Equipment Repairer Relationship Specialty Start Date End Date Ag Trent MD [address] [place] [address] PCP - General 02/02/14 documented as of this encounter
--- OUTSIDE RECORDS SUMMARY | 2024-02-17 15:59 | XMS_ITS | Encounter Summary ---
Author Organization [facility] Address [facility] [place] [address] Care Team Providers Care Hoof And Shoe Inspector Name Role Phone Ag Trent MD Primary Care Provider [phone] Encounter Details Date Type Department Care Team (Late st Contact Info) Description 05/24/2014 10:00 AM EST Follow-Up Hematology Oncology at [address] [address] Kirill Saavedra MD [facility] DR HEMATOLOGY [place] [address] Breast cancer, left breast; Mucositis; Hypokalemia; Anxiety Discharge Disposition: Home Social History Tobacco Use [...] Sign Reading Time Taken Comments Blood Pressure 137/73 05/24/2014 9:45 AM EST Pulse 67 05/24/2014 9:45 AM EST Temperature 37.2 ??C (99 ??F) 05/24/2014 9:45 AM EST Respiratory Rate 18 05/24/2014 9:45 AM EST Oxygen Saturation 97% 05/24/2014 9:45 AM EST Inhaled Oxygen Concentration - - Weight 83.5 kg (184 lb) 05/24/2014 9:45 AM EST Height 161 cm (5' 3.39) 05/24/2014 9:45 AM EST Body Mass Index 32.2 05/24/2014 9:45 AM EST documented in this encounter Progress Notes * Kirill Saavedra MD - 05/24/2014 10:33 AM EST Diagnosis: 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 Subjective:I just recovered 2 days ago from last chemo HPI: Mrs. Narda Rivera is 63 y.o. female Referred to us for consultation by Dr. Cohen on new diagnosis of breast cancer. She initially presenteda mass in her upper outer left breast with calcifications on a screening mammogram in December 2013.The main mass wasbiopsied showing infiltrating ductal andlobular carcinoma, ER positive, [id number]. MRI was then performed that showed the mass with multiple small satellites around it. Mrs. Rivera underwent left partial mastectomy and sentinel lymph node biopsy on February 23, 2014. Postoperative course was uneventful. Interval history: Mrs. Rivera is in clinic today for followup appointment and 1- st cycle of weekly Taxol. She complains on mouth sores and sore throat. She felt tired until the day before yesterday. She denies any fever, chills, vomiting or pain PMH: no interval changes Patient Active Problem List Diagnosis ??? Other [...] or inguinal areas. Neurologic: Normal Vitals BP 137/73 Pulse 67 Temp(Src) 37.2 ??C (99 ??F) (Oral) Resp 18 Ht 161 cm (5' 3.39) Wt 83.462 kg (184 lb) BMI 32.20 kg/m2 SpO2 97% Karnofsky score is 90 [...] count: Mitotic count: Score = 3 Total Kerman Score: Kerman Grade III: 8-9 points DCIS: Ductal Carcinoma [...] slide reconstruction) MICROCALCIFICATIONS: Present in nonneoplastic tissue ER/FL/HER2: ER/FL/Her2 Comment: Please see prior biopsy [id number]. HER2 FISH will be repeated on this [...] cancer cells with immunostaining) Stain Intensity: Strong FL immunoreactivity: Positive (11-90% cancer cells with immunostaining) Stain Intensity: Strong NEGATIVE FOR HER2/DEL AMPLIFICATION Labs: Calcium 8.7, BUN 10, creatinine 0.7, albumin 3.2, alkaline phosphatase 104, potassium 2.9, AST 20, ALT 29 WBC 7.63, globulin 12.9, platelet count 224, ANC 5.57. Imagin03/15/14, CT scan of chest, abdomen and pelvis: No evidence of abdominal pelvic metastatic disease.No evidence of thoracic metastatic disease. 8 cm fluid collection in the left breast. This likely reflects postsurgical change. 03/15/14 echocardiogram: normal biventricular size and systolic function; estimated LVEF 65%. 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 Adding of weekly Taxol demonstrated improvement inOS in the phase 3 clinical trials. Include but not limited to nausea, vomiting, numbness and tingling in the extremities, constipation, peripheral neuropathy low blood counts, life-threatening infecti ons. Informed verbal consent was obtained. Start chemotherapy today. 2. Hypokalemia: potassium 2.9 today, oral potassium supplementation 20 mEq a day for 10 days 3. Anxiety:controlled on lorazepam Plan: 1. Weekly Taxol today. 2. Next visit in 1 weeks with CBC, CMP and weekly Taxol Mrs. Rivera is accompanied by herhusband today. The plan was discussed with the [...] Priority Date/Time Associated Diagnosis Comments CHEMOTHERAPY SCAN 05/24/2014 12:00 AM EST documented in this encounter Results * SCAN DOC: CHEMOTHERAPY (05/24/2014 12:00 AM EST) Scanning Provider MEDIA MGR SCAN EXT O RDR/RSLT documented in this encounter Visit Diagnoses Diagnosis Breast cancer, left breast Malignant neoplasm of breast (female), unspecified site Mucositis Stomatitis and mucositis, unspecified Hypokalemia Hypopotassemia Anxiety Anxiety state, unspecified documented in this encounter Care Teams Hoof And Shoe Inspector Relationship Specialty Start Date End Date Ag Trent MD [address] [place] [address] PCP - General 02/02/14 documented as of this encounter
--- OUTSIDE RECORDS SUMMARY | 2024-02-17 15:59 | XMS_ITS | Encounter Summary ---
Author Organization [facility] Address [facility] [place] [address] Care Team Providers Care Seismograph Recorder Name Role Phone Ag Trent MD Primary Care Provider [phone] Encounter Details Date Type Department Care Team (Late st Contact Info) Description 03/18/2014 Notes Only Hematology [place] [address] Kirill Saavedra MD [facility] [address] [place] [address] Social History Tobacco Use Types Packs/Day Years Used Date Smoking Tobacco: Never Alcohol Use Standard Drinks/Week Comments No 0 (1 standard drink = 0.6 oz pur e alcohol) Sex and Gender Information Value Date Recorded Sex Assigned at Not on file Gender Identity Not on file Sexual Orientation Not on file documented as of this encounter Progress Notes * Yulissa Mcguire RN - 03/21/2014 11:15 AM EST Research Nurse Note [id number]: Effects of an Exercise Intervention on Physical Activity during Chemotherapy for patients with Early Stage Breast Cancer Met briefly with Narda at as she was waiting for her Mediport insertion appointment to collect original copies of the signed consent form and the original screening forms. All forms given to PANDA Badillo. Yulissa Mcguire RN documented in this encounter Plan of Treatment Not on file documented as of this encounter Visit Diagnoses Not on filedocumented in this encounter Care Teams Seismograph Recorder Relationship Specialty Start Date End Date Ag Trent MD [address] [place] [address] PCP - General 02/02/14 documented as of this encounter
--- OUTSIDE RECORDS SUMMARY | 2024-02-17 15:59 | XMS_ITS | Encounter Summary ---
Author Organization [facility] [place] [address] Care Team Providers Care Metal Finish Inspector Name Role Phone Ag Trent MD Primary Care Provider Encounter Details Date Type Department Care Team (Late st Contact Info) Description 03/22/2014 Orders Only Hematology Oncology at [address] [address] Ashley Elena, RN Malignant neoplasm of left female breast [...] site documented in this encounter Care Teams Metal Finish Inspector Relationship Specialty Start Date End Date Ag Trent MD [address] [place] [address] PCP - General 02/02/14 documented as of this encounter
--- OUTSIDE RECORDS SUMMARY | 2024-02-17 15:59 | XMS_ITS | Encounter Summary ---
Author Organization [facility] Address [facility] [place] [address] Care Team Providers Care White Shoe Examiner Name Role Phone Ag Trent MD Primary Care Provider [phone] Reason for Visit * Reason Comments Follow-up Encounter Details Date Type Department Care Team (Late st Contact Info) Description 04/12/2014 10:00 AM EST Follow-Up Hematology Oncology at [address] [address] Kirill Saavedra MD [facility] [place] [address] Breast cancer, left Discharge Disposition: Home Social History Tobacco [...] Sign Reading Time Taken Comments Blood Pressure 118/60 04/12/2014 10:04 AM EST Pulse 68 04/12/2014 10:04 AM EST Temperature 37.1 ??C (98.8 ??F) 04/12/2014 10:[address] Respiratory Rate 18 04/12/2014 10:04 AM EST Oxygen Saturation 96% 04/12/2014 10:04 AM EST Inhaled Oxygen Concentration - - Weight 86.2 kg (190 lb) 04/12/2014 10:04 AM EST Height 161 cm (5' 3.39) 04/12/2014 10:04 AM EST Body Mass Index 33.25 04/12/2014 10:04 AM EST documented in this encounter Progress Notes * Kirill Saavedra MD - 04/12/2014 10:37 AM EST Diagnosis: 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 Subjective:I felt nauseated, but I did not throw up HPI: Mrs. Narda Rivera is 63 y.o. female Referred to us for consultation by Dr. Cohen on new diagnosis of breast cancer. She initially presenteda mass in her upper outer left breast with calcifications on a screening mammogram in December 2013.The main mass wasbiopsied showing infiltrating ductal andlobular carcinoma, ER positive, [id number]. MRI was then performed that showed the mass with multiple small satellites around it. Mrs. Rivera underwent left partial mastectomy and sentinel lymph node biopsy on February 23, 2014. Postoperative course was uneventful. Interval history: Mrs. Rivera is in clinic today for followup appointment and second cycle of chemotherapy. She felt nauseated from days 3 of chemotherapy, bu she did not vomite. According to Mrs. Rivera dexamethasone and Zofran did not work for nausea. Marinol gave her a headache. She used marijuanabrownies which helped to control a nausea. Mrs. Rivera denies any pain, fever or chills. She complains on constipation. No shortness of breath or leg [...] or inguinal areas. Neurologic: Normal Vitals BP 118/60 Pulse 68 Temp(Src) 37.1 ??C (98.8 ??F) (Oral) Resp 18 Ht 161 cm (5' 3.39) Wt 86.183 kg (190 lb) BMI 33.25 kg/m2 SpO2 96% Karnofsky score is 90 [...] slide reconstruction) MICROCALCIFICATIONS: Present in nonneoplastic tissue ER/VA/HER2: ER/VA/Her2 Comment: Please see prior biopsy [id number]. HER2 FISH will be repeated on this [...] cancer cells with immunostaining) Stain Intensity: Strong VA immunoreactivity: Positive (11-90% cancer cells with immunostaining) Stain Intensity: Strong NEGATIVE FOR HER2/DEL AMPLIFICATION Labs: WBC 13.0 to, hemoglobin 15.3, platelet count 248, ANC 9.37, calcium 9.1, BUN 16, creatinine 0.7, albumin 3.5, alkaline phosphatase 108, AST 14, ALT 21, magnesium 1.8, potassium 3.3 Imagin03/15/14, CT scan of chest, abdomen and pelvis: No evidence of abdominal pelvic metastatic disease.No evidence of thoracic metastatic disease. 8 cm fluid collection in the left breast. This likely reflects postsurgical change. 03/15/14 echocardiogram: normal biventricular size and systolic function; estimated LVEF 65%. 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 Rivera developed grade 2 GI toxicity: nausea and constipation. They are currently resolved. We will proceed with cycle # 2 today and neulasta tomorrow. Will prescribe compazine 10 mg every 6 hours PRN for nausea. 2. Hypokalemia: potasium chloride IV 20 mEQ x1, then 10 mEq daily for 2 weeks, will chek level in 2weeks 3. Anxiety: prescription for lorazepam 0.5 mg every 6 hours when necessary 30 pills was given. I discussed with the patient the potential for addiction and effect on the ability to operate a car Plan: 1. Dose dense AC today, neulasta tomorrow. 2. Next visit in 2 weeks with CBC, CMP and 3-rd cycle of dose dense AC Mrs. Rivera is accompanied by everett today. [...] Priority Date/Time Associated Diagnosis Comments LAB SCAN 10/13/2015 12:00 AM EDT CHEMOTHERAPY SCAN 04/12/2014 12:00 AM EST documented in this encounter Results * SCAN DOC: LAB (10/13/2015 12:00 AM EDT) Scanning Provider MEDIA MGR SCAN EXT O RDR/RSLT * SCAN DOC: CHEMOTHERAPY (04/12/2014 12:00 AM EST) Scanning Provider MEDIA MGR SCAN EXT O RDR/RSLT documented in this encounter Visit Diagnoses Diagnosis Breast cancer, left Malignant neoplasm of breast (female), unspecified site documented in this encounter Care Teams White Shoe Examiner Relationship Specialty Start Date End Date Ag Trent MD [address] [place] [address] PCP - General 02/02/14 documented as of this encounter
--- OUTSIDE RECORDS SUMMARY | 2024-02-17 15:59 | XMS_ITS | Encounter Summary ---
Author Organization [facility] Address [facility] [place] [address] Care Team Providers Care Skimmer Scoop Operator Name Role Phone Ag Trent MD Primary Care Provider [phone] Reason for Visit * Reason Comments Radiation Consult Encounter Details Date Type Department Care Team (Late st Contact Info) Description 03/17/2014 1:30 PM EST Office Visit Radiation Oncology at [address] [phone] Clau Alfonso MD [facility] [place] [address] Malignant neoplasm of left female breast Discharge [...] Sign Reading Time Taken Comments Blood Pressure 125/70 03/17/2014 1:36 PM EST Pulse 62 03/17/2014 1:36 PM EST Temperature 36.8 ??C (98.2 ??F) 03/17/2014 1 :36 PM EST Respiratory Rate 18 03/17/2014 1:36 PM EST Oxygen Saturation 97% 03/17/2014 1:3 6 PM EST Inhaled Oxygen Concentration - - Weight 86.2 kg (190 lb) 03/17/2014 1:36 PM EST room #1 with shoes Height - - Body Mass Index 33.25 03/10/2014 1:10 PM EST documented in this encounter Progress Notes * Clau Alfonso MD - 03/17/2014 2:02 PM EST Images from the original note were not included. CC: Referred by Dr. Cohen for eval for xrt for breast ca. HPI: 63 y/o f who underwent a screening mmg in 01/11, [place] [place]p: L breast lesion 1, SUSPICIOUS,14 mm mass @ 0100. L breast lesion 2, SUSPICIOUS, 3.8 mm mass @ 0100, 12 mm from lesion 1. R breastneg. 02/02/14 US guided core needle bxs L breast mass @ 0100. Path: Invasive mammary ca w/ductal & lobular features. LVI present. ER+MT+. Mzi6inn IHC neg. 02/08/14 B breast MRI: L breast lesion 1, KNOWN MALIGNANCY, 40 x 20 x 33 mm mass @ 1200. R breast BENIGN. Ax nodes visualization adequate B. Benign appearing ax nodes B. NOTE: Satellite lesion (5 mm), 8 mm inf-lateral to main mass, not bx'd as can be excised @ time of excision of main mass, 2nd NLOC can be used if necessary. 02/10/[address] Cohen, w/exam showing no palpable breast mass/adenopathy. 02/22/14 L breast lumpectomy w/1 cm of breast tissue left on chest wall underneath dissxn. Specimenmmg showed suspicious area. SNB through lumpectomy incision. Path: IDC w/lobular features; 3.5 cm; high gr; +DCIS (minor); RM neg; closest RM to DCIS = 0.3 cm; extensive LVI; 2 ax sentinel lymph nodes, both + for met ca, 1 w/macromet & 1 w/micromet, largest met = 0.6 - 0.8 cm; pT2 pN1a. Fxd4xug FISH neg. Comment: Multiple satellite foci of invasive ca ranging in size from < 0.1 cm to 0.4 cm, & which are assoc'd w/LVI, are present adjacent to themain 3.5 cm mass. 03/02/14 Comprehensive Breast Program Tumor Bd Note w/rec for consider systemic staging, consider enrollment on B47, D1230, S1007 or D1207; rec breast conserving xrt to include supraclav nodes. 03/08/[address] Saavedra, w/rec for staging CT c/a/p & then ddACx4/weeklyTx4 followed by xrt & then hormonal tx. 03/10/14 fu w/Dr. Cohen, w/rec for chemo followed by xrt & then anti-hormone tx; rtc 7 mos w/L mmg. 03/15/14 CT c/a/p: 8 cm fluid collection in L breast, likely postsurgical change. No thoracic/abdominal/pelvic met dz. Healed ok. No pain. No hand/arm swelling. Normal ROM of arms around shoulders. Appetite fair. Energy level fair. No past medical history on file. Htn Hypothyroidism Hyperlipidemia Osteopenia femur Osteoarthritis knees & hands Past Surgical History Procedure Laterality Date ??? Mastectomy, partial Left 02/22/2014 MASTECTOMY PARTIAL performed by Ibrahima Cohen MD at [facility] OR ??? Bx/remv, lymph node, deep axill Left 02/22/2014 BIOPSY OR EXCISION OF LYMPH NODE(S), OPEN, DEEP AXILLARY NODE(S) performed by Ibrahima Cohen MD at [facility] OR ??? Identify sentinel node Left 02/22/2014 SENTINEL NODE INJECTION performed by Ibrahima Cohen MD at [facility] OR ??? Left 02/22/2014 MODIFIER SENTINEL NODE EXCISION performed by Ibrahima Cohen MD at [facility] OR S/p R TKR R leg fx Physical Exam Constitutional: She is oriented to person, place, and time. She appears well- developed and well-nourished. No distress. BP 125/70 Pulse 62 Temp(Src) 36.8 ??C (98.2 ??F) (Oral) Resp 18 Wt 86.183 kg (190 lb) SpO2 97% HENT: Head: Normocephalic and atraumatic. Eyes: Conjunctivae [...] tenderness. Left breast exhibits skin change ( Faint ecchymosis involving most of L breast.). Left breast exhibits no inverted nipple, no mass, nonipple discharge and no tenderness. Abdominal: Soft. She [...] is normal. Judgment and thought contentnormal. A: Breast, L, IDC w/lobular features; high gr; ER+MT+, Poz0wht-, s/p lumpectomy & SNB, pT2 pN1a, stage II, +extensive LVI. P: A course of xrt to L breast & draining lymphatics rec'd to increase likelihood of ca control. Xrt would be comprised of 33 daily fxs & would start 3 - 4 wks after chemo completion. Possible side effects of xrt discussed, w/acute/immediate side effects including: Pinkening, soreness & peeling of skin in treated area; swelling of treated area; soreness of treated area; cough;shortness of breath; sore throat; sense of fullness in throat; swelling of left hand/arm, which could be permanent; numbness, tingling, weakness & difficulty coordinating left hand/arm; tiredness. Late/halfway side effects of xrt discussed include: Treated left breast may tighten, become firmer & sit higher; achiness/stiffness of chest wall on treated side; CT after xrt may show scarringw/in small volume of lung on treated side; permanent swelling of left hand/arm; possible slight increase in small risk of dying of heart dz (from 1.9% risk to 2.4%); left sided rib fracture; small risk of irradiation associated 2nd malignancy. Need for CTsim w/eval for possible deep inspiration breath hold (DIBH) to decrease xrt dose to heart discussed. She would like to proceed w/xrt & will return in near future for CTsim. 25 mins of 40 min face to face visit w/Narda spent discussing rationale for xrt; hoped for benefit of xrt; possible side effects/complications of xrt; prevention/management of side effects/complications of xrt; logistics of daily xrt; timing of xrt vis a vis chemo; CTsimulation; DIBH; arm position required for xrt; followup after completion of xrt. * Susana Mohamud RN - 03/17/2014 1:09 PM EST RADIATION ONCOLOGY NURSING INITIAL NURSING ASSESSMENT Chief complaint: Left breast cancer ADVANCE DIRECTIVES: In [facility] [ ] Has documents [ ] Will bring in [ x ] IF NO: Advance Directive pamphlet provided: [ ] Referral to Care Management : [ ] PRESENTING SYSTEMS and PATHOLOGY: mass left upper outer breast. ER/MT positive, Her 2 carina neg. REVIEW OF SYSTEMS: Review of Systems Constitutional: Positive for activity change and fatigue. Unexpected weight change: approx. 10 pound loss. Respiratory: Negative for shortness of breath. Cough: nonproductive chronic cough. Cardiovascular: Negative for chest pain and palpitations. Gastrointestinal: Positive for constipation. Genitourinary: Negative for dysuria and urgency. Difficulty urinating: difficulty starting stream. Musculoskeletal: Negative for myalgias, arthralgias, neck pain and neck stiffness. Skin: Rash: status post left partial mastectomy. Neurological: Negative for dizziness, light-headedness and headaches. Psychiatric/Behavioral: Sleep disturbance: histroy of insomnial. Medical history: Surgical history: .psh Social History: .soc Family History of cancer: .famhx Prior Radiotherapy: [ x ] no [ ] yes Site: Date: Facility: Prior Chemotherapy: [ x] no [ ] yes Drug: Oncologist- LastTreatment: Prior hormone treatment/medications: [ x ] no [ ] Yes Drug: LastTreatment: RADIATION SPECIFIC REVIEW: NO: YES: Claustrophobia or requires sedation for MRIs x Allergy to CT or MRI contrast agent or iodine or shellfish x Diabetic and on metformin x Metal in body, implanted device, worked with metal, body piercings,braces Knee hearing device x Dentures Plasticplate Pacemaker x Difficulty breathing while lying flat x H/O Sclera derma x Currently x Active lupus x Kidney problems/creatinine x Balance difficulty: [ x ]no [ ]yes At risk for fall: [ x ] no [ ] yes If yes, actions implemented to prevent fall: ADL [ x ] no limits [ ] needs dressing assistance [ ] needs meal assistance Assistive device:[ x]none [ ]cane [ ]walker [ ]wheelchair [ ]other: explain PAIN ASSESSMENT: [ 0 ] out of 10 Location: Description: [ ] Dull [ ] Sharp [ ] Burning [ ] Throbbing [ ] Radiating [ ] Continuous [ ]Intermittent Aggravating Factors: [ ] Movement [ ] Position [ ]Immobility [ ]Other Alleviating Factors: [ ]Medication [ ] Positioning [ ] Other Current Pain Management Plan: [ ]Satisfied [ ] Not satisfied SOCIAL ASSESSMENT: See [facility] social assessment information entered. Support Systems: transportation plan: [ x]private vehicle [ ] RCT needs Social Work referral [ ] Unknown at this time needs Social Work referral Barriers to treatment: none identified. Referrals/Interventions: TEACHING: LEARNING STYLE: [ ] Visual [ ] verbal [ ] wants written material and verbal discussion. Language barriers: [ ] no [ ] yes [x ] see learning needs assessment Education material provided: [ ] NCI Radiation therapy and You?? and folder given [ ] Site Specific literature provided and reviewed with patient [ ] Other: zenon's cream given documented in this encounter Plan of Treatment Not on file documented as of this encounter Visit Diagnoses Diagnosis Malignant neoplasm of left female breast Malignant neoplasm of breast (female), unspecified site documented in this encounter Care Teams Skimmer Scoop Operator Relationship Specialty Start Date End Date Ag Trent MD [address] [place] [id number] PCP - General 02/02/14 documented as of this encounter
--- OUTSIDE RECORDS SUMMARY | 2024-02-17 15:59 | XMS_ITS | Encounter Summary ---
Author Organization [facility] Address [facility] [place] [address] Care Team Providers Care Soccer Player Name Role Phone Ag Trent MD Primary Care Provider [phone] Encounter Details Date Type Department Care Team (Late st Contact Info) Description 03/14/2014 Notes Only [place] [address] Kirill Saavedra MD [facility] [address] [place] [address] Social History Tobacco Use Types Packs/Day Years Used Date Smoking Tobacco: Never Alcohol Use Standard Drinks/Week Comments No 0 (1 standard drink = 0.6 oz pur e alcohol) Sex and Gender Information Value Date Recorded Sex Assigned at Not on file Gender Identity Not on file Sexual Orientation Not on file documented as of this encounter Progress Notes * Yulissa Mcguire - 03/15/2014 9:25 AM EST RESEARCH NURSE INFORMED CONSENT NOTE continued (initiated 03/10/14) [id number]: Effects of an Exercise Intervention on Physical Activity during Chemotherapy for Patients with Early Stage Breast Cancer Date: 03/14/14 Narda called stating that she had decided to participate in the study [id number]. We went over the consent page by page over the phone and she was given ample opportunities to ask questions. I specifically stressed the risks involved, how we protect her privacy and her right to withdraw at any time. She verbalized that she understood and she signed the consent, scanned it and then e-mailed it to me. I co-signed the consent and scanned it into [facility] and gave it to PANDA Chaidez. I then send Narda the study information booklet, the screening forms and a pedometer via overnight [employer] and asked Narda to call me when she received the package and to start wearing the pedometer Friday03/15/14. She is aware that we will need to schedule the baseline visit on 03/22/14. Yulissa Mcguire RN documented in this encounter Plan of Treatment Not on file documented as of this encounter Visit Diagnoses Not on filedocumented in this encounter Care Teams Soccer Player Relationship Specialty Start Date End Date Ag Trent MD [address] [place] [address] PCP - General 02/02/14 documented as of this encounter
--- OUTSIDE RECORDS SUMMARY | 2024-02-17 15:59 | XMS_ITS | Encounter Summary ---
Author Organization [facility] Address [facility] [place] [address] Care Team Providers Care Medical Lab Assistant Name Role Phone Ag Trent MD Primary Care Provider [phone] Encounter Details Date Type Department Care Team (Late st Contact Info) Description 04/12/2014 Notes Only Hematology [place] [address] Kirill Saavedra MD [facility] DR HEMATOLOGY AND ONCOLOGY [place] [id number] Social History Tobacco Use Types Packs/Day Years Used Date Smoking Tobacco: Never Alcohol Use Standard Drinks/Week Comments No 0 (1 standard drink = 0.6 oz pur e alcohol) Sex and Gender Information Value Date Recorded Sex Assigned at Not on file Gender Identity Not on file Sexual Orientation Not on file documented as of this encounter Progress Notes * Yulissa Mcguire RN - 04/12/2014 4:18 PM EST Research Nurse; Week 2 phone call 04/12/14 Control arm A [id number]: Effects of an Exercise Intervention on Physical Activity during Chemotherapy for Patients with Early Stage Breast Cancer Narda reported average steps of 1378/day. This past week Narda used her stationary bike for exercise every day. She biked 10 min each day and her exertion rate ranging from 13 - 14 (scale 6-20). She reported to feeling (neutral - fairly good) while exercising on the Feeling scale. On several days she had mild thigh pain while biking which she was told by her doctor was likely due to the Neulasta. She usually bikes late afternoon around 5 PM which is when she gets around to it. Her biking meets/exceeds her initial physical activity. She stated that she is not a very active person as she likes to read a lot, saba and be by herself. She has no problems to remember wearing the pedometer asthis has become part of her routine. Yulissa Mcguire, RN documented in this encounter Plan of Treatment Not on file documented as of this encounter Visit Diagnoses Not on filedocumented in this encounter Care Teams Medical Lab Assistant Relationship Specialty Start Date End Date Ag Trent MD [address] [place] [id number] PCP - General 02/02/14 documented as of this encounter
--- OUTSIDE RECORDS SUMMARY | 2024-02-17 15:59 | XMS_ITS | Encounter Summary ---
Author Organization [facility] Address [facility] [place] [address] Care Team Providers Care Vehicle Cost Engineer Name Role Phone Ag Trent MD Primary Care Provider [phone] Reason for Visit * Reason Comments Simulation Encounter Details Date Type Department Care Team (Latest Contact Info) Description 04/07/2014 1:00 PM EST Ancillary Appointment Radiation Oncology at [address] [id number] Clau Alfonso MD [facility] [place] [address] Michael Barton MD [address] [place] [phone] Breast cancer, left Discharge Disposition: Home Social History Tobacco Use Types Packs/Day Years Used Date Smoking Tobacco: Never Alcohol Use Standard Drinks/Week Comments No 0 (1 standard drink = 0.6 oz pur e alcohol) Sex and Gender Information Value Date Recorded Sex Assigned at Not on file Gender Identity Not on file Sexual Orientation Not on file documented as of this encounter Patient Instructions * Patient Instructions* Susana Mohamud RN - 04/07/2014 1:04 PM EST Information for Patients receiving radiation therapy to [...] instructions to minimize your discomfort. Skin Care ? Wash skin in the treatment field with lukewarm water and mild or moisturizing soap daily. Blot skin dry with a soft towel. ? Do not apply any ointment, salve, deodorant, perfume, cologne, cosmetic or self-remedy to the treatment area while you are undergoing radiation and for 1-2 weeks following treatment. An all naturaldeodorant with no aluminum can be used if necessary. ? Jeans Cream will be provided for you. This may be used in the treatment area once a day beginningon your first treatment day. As dryness/redness develop you can use this more often. Never re-applywithin 3 hours of your radiation treatments. ? Do not rub or scratch the skin in the treatment field. This includes shaving unless you use an electric razor. If your skin becomes dry or itchy, tell your nurse or doctor. If necessary, your doctor may order a medication specifically for this problem. ? Do not use hot water bottles, heating lights, electric heating pads, or hot packs to the treatment area. ? Keep treated areas out of the sun throughout the treatment period. Be careful of sun exposure to the treatment field for one year following treatment. Please use SPF> 30 to all exposed areas of skin and limit sun exposure. ? Avoid tight fitting clothes. We would prefer that you wear a cotton t-shirt instead of a bra. If you are unable to go without a bra please wear a soft cotton bra without underwire. ? Examine your skin in the treatment area daily and watch for changes. If you cannot reach the whole treatment field ask a family member to look at it and apply cream as needed. Be careful to keep the area under your breast clean and dry as this area can get irritated first. ? You will meet with your nurse and Doctor weekly ( Dr. Alfonso, Fridays) so we can check your skin and help you with any side effects you are having. Please ask to see the nurse if you have concerns in between these days. ? During the last weeks of treatment you may notice some peeling of skin and/or a moist reaction. Be sure to let us know if this happens so we can provide you with an alternative cream. ? Continue to stay active, walk daily , eat healthy foods and drink several glasses [...] your treatment to your nurse or doctor. Section of Radiation Oncology [address] [place] [id number] Our normal business hours are: Friday - Friday 8 AM to 5 PM If you have questions about your radiation appointments please ask to speak to the Radiation Oncology chalker soles. If you have questions for the nurse about radiation treatments, radiation side effects or you are not feeling well it is best to call early in the day. This allows the nurse to return your call by 5 PM the same day. If you call after 4 PM, and your question is not urgent, the nurse will return yourcall by 5 PM the following day. If you experience any of the following you need to seek emergency care immediately by calling 911 1. Sudden and unexpected breathing difficulty without any exertion 2. Sudden onset of chest pain 3. Sudden onset of severe pain or uncontrolled pain 4. Sudden onset of severe weakness and/or unable to ambulate 5. Sudden new onset of a seizure 6. Fall resulting in injury A Radiation Oncology doctor is career technical education teacher after our normal hours, holidays and weekends. To call for urgent medical issues from radiation treatments that can not wait until normal business hours, pleasecall and have the photocopying machine operator page the Radiation Oncologist in call. documented in this encounter Progress Notes * Clau Alfonso MD - 04/07/2014 2:44 PM EST Here for sim. Since I saw her 03/17/14, she has undergone R IJ port placement 03/18/14, been seen by PT 03/22/14 & stated on chemo (ddAC-Tx12) 03/29/14. Sim: Breast bd immobilization w/custom cushion; flat bbs on L breast lumpectomy scar; CT done through neck & chest showed heart to be close to L chest wall, so she was then instructed in deep inspiration breath hold (DIBH) & 2nd CT done through neck & chest w/DIBH; 3D xrt planned. She tolerated sim well, w/o problem. Tx Plan: 3D xrt. Beam films 08/12/14, start xrt 08/30/14. * Susana Mohamud RN - 04/07/2014 1:02 PM EST Initial Patient Education for Radiation Treatments Literature reviewed and given to patient: #1 Radiation Therapy and You a Guide to Self-Help During Cancer Treatment U.S. Department of Health and Human Services National Institutes of Health Publication No. 07-7157 National Cancer [place] Revised May 2006 #2 [facility];Shared drive/info for RT Patients: a) Information for Patients Receiving Radiation Therapy b) Managing Cancer Treatment Related Fatigue Adapted from Cancersytoms.org Information for understanding cancer on c) Radiation Therapy Billing Information d) Disease site specific Information: Information for Patients Receiving Radiation Therapy To The breast E) INFORMATION FOR PATIENT S RECEIVING RADIATION THERAPY TO THE BREAST AT [place], [place] #3 Miscellaneous: Jeans cream supplied with the instructions to apply to site of radiation twice a day, but not less than 3 hours before radiation treatment. Contact information: If you have any questions or concerns regarding your cancer, please call: During business hours of 8 AM - 5 PM : [facility] [phone] Weekend/holidays/nights: [facility] [phone] and ask for the career technical education teacher radiation oncologist For general medical questions not related to cancer; Please contact your primary physician. For medical emergencies needing immediate attention;contact local primary physician, go to local hospital emergency room,or call 911. Patient verbalized understanding of these instructions and the importance of reading them more thoroughly at home. Information was presented w/ folder and above contact information. Patient was encouraged to call if there are any questions or concerns. documented in this encounter Plan of Treatment Not on file documented as of this encounter Procedures Procedure Name Priority Date/Time Associated Diagnosis Comments LAB SCAN 04/11/2014 12:00 AM EST documented in this encounter Results * SCAN DOC: LAB (04/11/2014 12:00 AM EST) Scanning Provider MEDIA MGR SCAN EXT O RDR/RSLT documented in this encounter Visit Diagnoses Diagnosis Breast cancer, left Malignant neoplasm of breast (female), unspecified site documented in this encounter Care Teams Vehicle Cost Engineer Relationship Specialty Start Date End Date Ag Trent MD [address] [place] [address] PCP - General 02/02/14 documented as of this encounter
--- OUTSIDE RECORDS SUMMARY | 2024-02-17 15:59 | XMS_ITS | Encounter Summary ---
Author Organization [facility] Address [facility] [place] [address] Care Team Providers Care Cane Pusher Name Role Phone Ag Trent MD Primary Care Provider [phone] Encounter Details Date Type Department Care Team (Late st Contact Info) Description 04/19/2014 Notes Only Hematology [place] [id number] Kirill Saavedra MD [facility] DR HEMATOLOGY [place] [address] Social History Tobacco Use Types Packs/Day Years Used Date Smoking Tobacco: Never Alcohol Use Standard Drinks/Week Comments No 0 (1 standard drink = 0.6 oz pur e alcohol) Sex and Gender Information Value Date Recorded Sex Assigned at Not on file Gender Identity Not on file Sexual Orientation Not on file documented as of this encounter Progress Notes * Yulissa Mcguire RN - 04/20/2014 8:57 AM EST Research Nurse; Week 3 phone call 04/19/14 Control arm A [id number]: Effects of an Exercise Intervention on Physical Activity during Chemotherapy for Patients with Early Stage Breast Cancer Narda reported average steps of 1239/day. She biked on her stationary bike 6 out of 7 days for 10 min each day. States she has to force herself but manages to do it. Feeling scale while exercising -1to -2 = fairly bad. Perceived exertion reported as fairly light - somewhat hard. States she is gladto be on the study as otherwise doubts that she would do any biking or Exercise. Yulissa Mcguire RN documented in this encounter Plan of Treatment Not on file documented as of this encounter Visit Diagnoses Not on filedocumented in this encounter Care Teams Cane Pusher Relationship Specialty Start Date End Date Ag Trent MD [address] [place] [address] PCP - General 02/02/14 documented as of this encounter
--- OUTSIDE RECORDS SUMMARY | 2024-02-17 15:59 | XMS_ITS | Encounter Summary ---
Author Organization [facility] Address [facility] [place] [address] Care Team Providers Care Machinery Dismantler Name Role Phone Ag Trent MD Primary Care Provider [phone] Reason for Visit * Reason Onset Date Comments Other 03/17/2014 met with patient while in clinic today Encounter Details Date Type Department Care Team (Late st Contact Info) Description 03/17/2014 Telephone Hematology Oncology at [address] [address] Ashley Elena, RN Other (met with patient while in clinic today) Social History Tobacco Use Types Packs/Day Years Used Date Smoking Tobacco: Never Alcohol Use Standard Drinks/Week Comments No 0 (1 standard drink = 0.6 oz pur e alcohol) Sex and Gender Information Value Date Recorded Sex Assigned at Not on file Gender Identity Not on file Sexual Orientation Not on file documented as of this encounter Miscellaneous Notes * Telephone Encounter - Ashley Elena, RN - 03/17/2014 3:14 PM EST While patient in clinic today for radiation appointment she asked to meet with med onc nurse regarding chemotherapy questions. Met with Narda for about 20 minutes, answering and reviewing questions related to chemotherapy schedule, potential side affects and transportation questions (plan to meet with JEREMY Eagle first day of chemotherapy). Narda is also questioning if she could get prescription for neulasta injection either to self administer on day 2 or take to pcp office for administration. Will plan to discuss this with Dr. Saavedra when he is in clinic on 03/22/14. documented in this encounter Plan of Treatment Not on file documented as of this encounter Visit Diagnoses Not on filedocumented in this encounter Care Teams Machinery Dismantler Relationship Specialty Start Date End Date Ag Trent MD [address] [place] [address] PCP - General 02/02/14 documented as of this encounter
--- OUTSIDE RECORDS SUMMARY | 2024-02-17 15:59 | XMS_ITS | Encounter Summary ---
[facility] Address [facility] [place] [address] Care Team Providers Care Supervisor Offset Plate Preparation Name Role Phone Ag Trent MD Primary Care Provider [phone] Encounter Details Date Type Department Care Team (Late st Contact Info) Description 03/22/2014 10:00 AM EST Ancillary Appointment Hematology [place] [address] Social History Tobacco Use Types Packs/Day Years Used Date Smoking Tobacco: Never Alcohol Use Standard Drinks/Week Comments No 0 (1 standard drink = 0.6 oz pur e alcohol) Sex and Gender Information Value Date Recorded Sex Assigned at Not on file Gender Identity Not on file Sexual Orientation Not on file documented as of this encounter Progress Notes * Yulissa Mcguire RN - 03/22/2014 2:49 PM EST Research Nurse Baseline Visit, Date: 03/22/14 [id number]: Effects of an Exercise Intervention on Physical Activity during Chemotherapy for Patients with Early Stage Breast Cancer Met with Narda in [facility] waiting area. I explained to her that we had approval for an updated protocoland consent and these changes require re-consenting. She read the explanation in the consent form that described this addition and I showed her the log sheet where she need to record how she feels during/after her exercise. She stated she had no other questions and I gave her a copy of the consent for her records. Narda then had fasting insulin and CRP drawn peripherally in [facility] lab. I informed her that she had randomized to the Control group. This includes a PT consult with standard recommendations. I walked Narda down to the PT department and the standard PT visit and the Body Composition Analysis (DEBBIE) was done by Jillian Kaur. The Resting Metabolic Rate (RMR) was completed by this personal lines underwriter while Narda was resting (still fasting) in reclined position in quiet, dimly lit room. She toleratedwearing the breathing mask without any problems. Resting heart rate, waist and hip measurement wereobtained and recorded. All baseline forms and consent were given to PANDA Chaidez. Narda is scheduled to start her chemotherapy treatment on March 29. She will continue to document her activities on the new revised log sheet. Week 1 phone call is planned for April 05 to obtain activity information. Yulissa Mcguire RN documented in this encounter Plan of Treatment Not on file documented as of this encounter Visit Diagnoses Not on filedocumented in this encounter Care Teams Supervisor Offset Plate Preparation Relationship Specialty Start Date End Date Ag Trent MD [address] [place] [id number] PCP - General 02/02/14 documented as of this encounter
--- OUTSIDE RECORDS SUMMARY | 2024-02-17 15:59 | XMS_ITS | Encounter Summary ---
Author Organization [facility] Address [facility] [place] [address] Care Team Providers Care Injection Press Operator Name Role Phone Ag Trent MD Primary Care Provider [phone] Reason for Visit * Reason Onset Date Comments Other 04/05/2014 Encounter Details Date Type Department Care Team (Late st Contact Info) Description 04/05/2014 Telephone Hematology Oncology at [address] [address] Ashley Elena, RN Other Social History Tobacco Use Types Packs/Day Years [...] Telephone Encounter - Ashley Elena, RN - 04/05/2014 12:38 PM EST Phone call to Narda to follow up on how she is feeling after receiving cycle 1 AC last week. She states 2 days after chemotherapy she developed really bad nausea. She states neither zofran nor marinol was affective and she felt horrible and had very little po intake. She also reports that she did not have a bowel movement x 6 days following chemotherapy. She report she has a friend that gave her home made brownies with an herb in it and that is the only thing that helped and she is feeling better today. She states she also took a bisacodyl yesterday and moved her bowels. She will continue to eat the brownies and instructed her to start pericolace twice daily day before chemotherapy next week , as she states she historically has a difficult time with constipation. She will call back if status changes. documented in this encounter Plan of Treatment Not on file documented as of this encounter Visit Diagnoses Not on filedocumented in this encounter Care Teams Injection Press Operator Relationship Specialty Start Date End Date Ag Trent MD [address] [place] [id number] PCP - General 02/02/14 documented as of this encounter
--- OUTSIDE RECORDS SUMMARY | 2024-02-17 16:00 | XMS_ITS | Encounter Summary ---
Author Organization [facility] Address [facility] [place] [address] Care Team Providers Care Ski Guide Name Role Phone Ag Trent MD Primary Care Provider [phone] Encounter Details Date Type Department Care Team (Late st Contact Info) Description 02/08/2014 Notes Only Care Management [facility] [place] [address] Berkley Soto MSW Social History Tobacco Use Types Packs/Day Years Used Date Smoking Tobacco: Never Assessed Sex and Gender Information Value Date Recorded Sex Assigned at Not on file Gender Identity Not on file Sexual Orientation Not on file documented as of this encounter Progress Notes * Berkley Soto MSW - 02/08/2014 2:48 PM EST [facility] contacted pt to introduce myself and explain my role. Pt was recently diagnosed with invasive mammary carcinoma and had indicated to Keyonna Garcia, Nurse Coordinator, that she was depressed and anxious about her diagnosis. Pt is taking medication to help her sleep at night but is quite anxious tosee Dr. Cohen to determine her surgical plan. She hopes to have a lumpectomy and plans to have her radiation treatments at the [facility]. Pt has support from friends and will be accompanied to her surgical consult appt by a friend. [facility] addressed pt's questions and encouraged her to contact me with any additional concerns. P- [facility] will continue to assess and address pt's psychosocial needs . documented in this encounter Plan of Treatment Not on file documented as of this encounter Visit Diagnoses Not on filedocumented in this encounter Care Teams Ski Guide Relationship Specialty Start Date End Date Ag Trent MD [address] [place] [address] PCP - General 02/02/14 documented as of this encounter
--- OUTSIDE RECORDS SUMMARY | 2024-02-17 16:00 | XMS_ITS | Encounter Summary ---
Author Organization [facility] Address [facility] [place] [address] Care Team Providers Care Cartographic Engineer Name Role Phone Ag Trent MD Primary Care Provider [phone] Encounter Details Date Type Department Care Team (Late st Contact Info) Description 02/17/2014 Orders Only [place] [phone] Ibrahima Cohen MD [facility] [place] [address] Malignant neoplasm of breast (female), unspecified site Social History Tobacco Use Types Packs/Day Years Used Date Smoking Tobacco: Never Assessed Sex and Gender Information Value Date Recorded Sex Assigned at Not on file Gender Identity Not on file Sexual Orientation Not on file documented as of this encounter Plan of Treatment Not on file documented as of this encounter Results * Mammo specimen (02/22/2014 5:09 PM EST) Anatomical Region Laterality Modality Breast N/A Mammography 02/22/2014 5:09 PM EST Narrative 02/23/2014 11:54 AM EST SPECIMEN RADIOGRAPH OF THE LEFT BREAST ON 02/22/14: ?? CLINICAL INDICATION: Please assess the staining for clear margins. ?? Specimen mammography was performed. The suspicious areas (mass/calcifications/clip) are included in the specimen. ?? The specimen arrived in the Radiology Department at 5:03pm. ?? Report of specimen called to the OR at 5:07pm. Procedure Note Hoang Gonzalez MD - 02/23/2014 SPECIMEN RADIOGRAPH OF THE LEFT BREAST ON 02/22/14: CLINICAL INDICATION: Please assess the staining for clear margins. Specimen mammography was performed. The suspicious areas (mass/calcifications/clip) are included in the specimen. The specimen arrived in the Radiology Department at 5:03pm. Report of specimen called to the OR at 5:07pm. Ibrahima Cohen MD IMG MAMMO ORDERABLES documented in this encounter Visit Diagnoses Diagnosis Malignant neoplasm of breast (female), unspecified site Malignant neoplasm of breast (female), unspecified site documented in this encounter Care Teams Cartographic Engineer Relationship Specialty Start Date End Date Ag Trent MD [address] [place] [address] PCP - General 02/02/14 documented as of this encounter
--- OUTSIDE RECORDS SUMMARY | 2024-02-17 16:00 | XMS_ITS | Encounter Summary ---
Author Organization [facility] Address [facility] [place] [address] Care Team Providers Care Recreation Clerk Name Role Phone Latoya Quintanilla MD Primary Care Provider [phone] Encounter Details Date Type Department Care Team (Late st Contact Info) Description 02/01/2014 [place] [phone] Noe Tao MD [facility] [place] [address] Social History Tobacco Use Types Packs/Day Years Used Date Smoking Tobacco: Never Assessed Sex and Gender Information Value Date Recorded Sex Assigned at Not on file Gender Identity Not on file Sexual Orientation Not on file documented as of this encounter Progress Notes * Noe Tao - 02/01/2014 9:02 AM EST Pre-procedure note for needle breast biopsies performed in radiology. Procedure date: Tomorrow Procedure type: left breast ultrasound guided biopsy x 2 Allergies: Review of patient's allergies indicates not on file. Medications: Scanned document. Anticoagulation status: None Imaging reviewed and procedural plan approved by Dr. NOE TAO MD documented in this encounter Plan of Treatment Not on file documented as of this encounter Visit Diagnoses Not on filedocumented in this encounter Care Teams Recreation Clerk Relationship Specialty Start Date End Date Latoya Quintanilla MD [address] [place] [address] PCP - General 02/20/10 02/01/14 documented as of this encounter
--- OUTSIDE RECORDS SUMMARY | 2024-02-17 16:00 | XMS_ITS | Encounter Summary ---
Author Organization [facility] Address [facility] [place] [address] Care Team Providers Care Molder Inflated Ball Name Role Phone Ag Trent MD Primary Care Provider [phone] Encounter Details Date Type Department Care Team (Latest Contact Info) Description 02/08/2014 11:26 AM EST - 02/08/2014 11:59 PM EST Hospital [place] [address] Ibrahima Cohen MD [facility] [place] [address] Invasive ductal carcinoma of breast, left Discharge Disposition: Home Social History Tobacco [...] Priority Date/Time Associated Diagnosis Comments HEMOGRAM Routine 02/08/2014 11:38 AM EST Invasive ductal carcinoma of breast, left DIFFERENTIAL, AUTOMATED Routine 02/08/2014 11:38 AM EST Invasive ductal carcinoma of breast, left CBC (WITH DIFF) Routine 02/08/2014 11:38 AM EST Invasive ductal carcinoma of breast, left COMPREHENSIVE METABOLIC PANEL Routine 02/08/2014 11:38 AM EST Invasive ductal carcinoma of breast, left documented in this encounter Results * Differential, Automated (02/08/2014 11:38 AM EST) Neutrophil % 54.7 % CERNER MILLENNIUM Neutrophil Absolute 4.25 1.50 - 6.30 x10(3)/mcL CERNER MILLENNIUM Lymph % 36.0 % CERNER MILLENNIUM Lymphocytes Abs 2.8 1.0 - 3.6 x10(3)/mcL CERNER MILLENNIUM Monocyte % 6.9 % CERNER MILLENNIUM Monocyte Abs 0.5 0.2 - 1.0 x10(3)/mcL CERNER MILLENNIUM Eos % 1.8 % CERNER MILLENNIUM Eosinophils Abs 0.1 0.0 - 0.5 x10(3)/mcL CERNER MILLENNIUM Basophil % 0.3 % CERNER MILLENNIUM Baso Absolute 0.0 0.0 - 0.2 x10(3)/mcL CERNER MILLENNIUM Immature Gran % 0.30 % CERN ER MILLENNIUM Comment: Immature granulocytes(IG's)percentage and absolute count will include metamyelocytes, myelocytes, and promyelocytes. Blood smears from CBCs yielding IG's will be scanned manually for concordance. If this scan disagrees with the automated IG or if promyelocytes are noted, a manual differential will be performed. Immature Gran Absolute 0.02 0.00 - 0.05 x10(3)/mcL CERNER MILLENNIUM Blood specimen (specimen) 02/08/2014 11:38 AM EST 02/08/2014 11:45 AM EST Narrative Resulting Agency Comment Spec In Lab Ibrahima Cohen MD HEMATOLOGY ORDERABLE S CERNER HARLANENNIUM * (ABNORMAL) Hemogram (02/08/2014 11:38 AM EST) White Blood Cell 7.8 4.0 - 10.0 x10(3)/mc L CERNER MILLENNIUM Red Blood Cell 5.60(H) 3.93 - 5.22 x10(6)/mc L CERNER MILLENNIUM Hemoglobin 16.7(H) 11.2 - 15.7 gm/dL CERNER MILLENNIUM Hematocrit 47.5(H) 34.0 - 45.0 % CERNER MILLENNIUM Mean Cell Volume 84.8 79.0 - 94.0 fL CERNER MILLENNIUM Mean Cell Hemoglobin 29.8 26.6 - 32.2 pg CERNER MILLENNIUM Mean Cell Hemoglobin Concentration 35.2 32.0 - 36.5 gm/dL CERNER MILLENNIUM Platelet 281 145 - 370 x10(3)/mc L CERNER MILLENNIUM RDW Standard Deviation 38.6 35.0 - 46.0 fL CERNER MILLENNIUM RDW coefficient of variation 12.7 10.9 - 14.4 % CERNER MILLENNIUM Mean Platelet Volume 9.9 9.0 - 12.0 fL CERNER MILLENNIUM Blood specimen (specimen) 02/08/2014 11:38 AM EST 02/08/2014 11:45 AM EST Narrative Resulting Agency Comment Spec In Lab Ibrahima Cohen MD HEMATOLOGY ORDERABLE S CERNER MILLENNIUM * (ABNORMAL) Comprehensive metabolic panel (non-fasting) (02/08/2014 11:38 AM EST) [facility] Glucose 113 60 - 199 mg/dL CERNER MILLENNIUM Comment:Diabetes: >=200 mg/d L plus symptoms Blood Urea Nitrogen 18 8 - 18 mg/dL CERNER MILLENNIUM Creatinine 0.75 0.70 - 1.20 mg/dL CERNER MILLENNIUM Comment: Please note that the pediatric reference intervals supplied above were not validated at [facility]. Results from pediatric patients should be interpreted in conjunction to the patient's age, height and muscle mass. Sodium 141 135 - 145 mmol/L CERNER MILLENNIUM Potassium 3.6 3.5 - 5.0 mmol/L CERNER MILLENNIUM Comment: Please note: ??Patients with WBC >100,000 may have falsely elevated Potassium levels. ??For accurate Potassium quantification in these patients send serum separator tube (gold top) for subsequent determinations. ??Contact the Clinical Chemistry Laboratory if there are any questions. Chloride 99 98 - 107 mmol/L CERNER MILLENNIUM Carbon Dioxide 25 22 - 31 mmol/L CERNER MILLENNIUM Anion Gap 17(H) 5 - 15 mmol/L CERNER MILLENNIUM Calcium 10.0 8.5 - 10.5 mg/dL CERNER MILLENNIUM Protein, Total 7.6 6.4 - 8.3 gm/dL CERNER MILLENNIUM Albumin 4.4 3.2 - 5.2 gm/dL CERNER MILLENNIUM Aspartate Aminotransferase 14 0 - 30 unit/L CERNER MILLENNIUM Alanine Aminotransferase 14 0 - 30 unit/L CERNER MILLENNIUM Alkaline Phosphatase 92 40 - 104 unit/L CERNER MILLENNIUM Bilirubin, Total 0.2 0.2 - 1.3 mg/dL CERNER MILLENNIUM Comment:Result rechecked. DA Bilirubin, Direct 0.1 0.0 - 0.3 mg/dL [...] the following links into your internet browser. [email or web address] Blood specimen (specimen) 02/08/2014 11:38 AM EST 02/08/2014 11:45 AM EST Narrative Resulting Agency Comment Spec In Lab Ibrahima Cohen MD CHEMISTRY ORDERABLES MARI URIBE documented in this encounter Visit Diagnoses Diagnosis Invasive ductal carcinoma of breast, left documented in this encounter Care Teams Molder Inflated Ball Relationship Specialty Start Date End Date Ag Trent MD [address] [place] [address] PCP - General 02/02/14 documented as of this encounter
--- OUTSIDE RECORDS SUMMARY | 2024-02-17 16:00 | XMS_ITS | Encounter Summary ---
Author Organization [facility] Address [facility] [place] [address] Care Team Providers Care Slab Lifting Engineer Name Role Phone Ag Trent MD Primary Care Provider [phone] Encounter Details Date Type Department Care Team (Late st Contact Info) Description 02/04/2014 Orders Only Hematology [place] [address] Ibrahima Cohen MD [facility] [place] [address] Invasive ductal carcinoma of breast, left (Primary Dx) Social History Tobacco Use Types Packs/Day Years Used Date Smoking Tobacco: Never Assessed Sex and Gender Information Value Date Recorded Sex Assigned at Not on file Gender Identity Not on file Sexual Orientation Not on file documented as of this encounter Plan of Treatment Not on file documented as of this encounter Results * (ABNORMAL) Comprehensive metabolic panel (non-fasting) (02/08/2014 11:38 AM EST) [facility] Glucose 113 60 - 199 mg/dL CERNER MILLENNIUM Comment:Diabetes: >=200 mg/d L plus symptoms Blood Urea Nitrogen 18 8 - 18 mg/dL CERNER MILLENNIUM Creatinine 0.75 0.70 - 1.20 mg/dL CERNER MILLENNIUM Comment: Please note that the pediatric reference intervals supplied above were not validated at [facility]. Results from [...] the following links into your internet browser. [email or web address] Blood specimen (specimen) 02/08/2014 11:38 AM EST 02/08/2014 11:45 AM EST Narrative Resulting Agency Comment Spec In Lab Ibrahima Cohen MD CHEMISTRY ORDERABLES CERERIS MILLANIUM * XR chest routine PA & lateral (02/08/2014 11:31 AM EST) Anatomical Region Laterality Modality Chest N/A Radiographic Charlotte ging 02/08/2014 11:3 1 AM EST Narrative 02/08/2014 1:29 PM EST Examination CHEST ROUTINE PA+LAT Clinical History newly dx br ca Comparison None Technique Findings There is a sub 5 mm nodule in the right mid lung zone most likely representing a calcified granuloma. ??Otherwise, the lungs are clear. ??The cardiomediastinal silhouette and gaurav appear normal. ??No pleural effusion or aggressive bone lesion is seen. ??Incidentally noted is multilevel degenerative change in the thoracic spine. Impression No evidence of metastatic disease or other significant abnormality. Procedure Note Bashir Santa MD - 02/08/2014 Examination CHEST ROUTINE PA+LAT Clinical History newly dx br ca Comparison None Technique Findings There is a sub 5 mm nodule in the right mid lung zone most likelyrepresenting a calcified granuloma. Otherwise, the lungs are clear. Thecardiomediastinal silhouette and gaurav appear normal. No pleural effusion or aggressive bone lesion is seen. Incidentally noted is multilevel degenerative change inthe thoracic spine. Impression No evidence of metastatic disease or other significant abnormality. Ibrahima Cohen MD IMG DX ORDERABLES * MRI breast bilateral with/WO contrast (02/08/2014 11:07 AM EST) Anatomical Region Laterality Modality Breast Bilateral Magnetic Resonan ce 02/08/2014 11:0 7 AM EST Narrative 02/10/2014 7:34 AM EST BILATERAL BREAST MRI ON 02/08/14: ?? SUMMARY: ?? LEFT BREAST LESION 1: KNOWN MALIGNANCY (BIRADS Category 6). Lesion type: Mass. Size: 40 x 20 x 33mm. Location: 1200, 8.5cm from the nipple. Mass margins: Irregular. Mass shape: Irregular. Enhancement pattern: Heterogeneous. ?? Kinetics: Fast/Washout. Recommendation: Definitive surgery. ?? RIGHT BREAST: BENIGN FINDING (BIRADS Category 2). Scattered punctate enhancement consistent with FCD/hormonal changes. ?? NARRATIVE: ?? Clinical indication: Staging. ?? Techniques: Multiplanar sequences were obtained pre- and post- gadolinium enhancement, to include SPGR weighted dynamic run-off and subtraction sequences obtained after the intravenous administration of 18ccs of Magnevist. Computer algorithm analysis for lesion detection and kinetic contrast enhancement curve analysis was performed, using Housebitesa software. ?? Background enhancement pattern (first post gadolinium images): Mild (25-50% breast). ?? Amount of fibroglandular tissue: Scattered fibroglandular tissue. ?? Comparison studies: Mammograms dated: 02/02/14 and 01/18/14. ??Biopsy dated: 02/02/14. ?? Pathology Results: ??Left breast invasive mammary cancer. ??Date of Diagnosis: 02/02/14. ?? Axillary nodes: Visualization adequate bilaterally. ?? Benign appearing axillary nodes: Bilaterally. ?? Procedure Note Nancy Hummel MD - 02/10/2014 BILATERAL BREAST MRI ON 02/08/14: SUMMARY: LEFT BREAST LESION 1: KNOWN MALIGNANCY (BIRADS Category 6). Lesion type: Mass. Size: 40 x 20 x 33mm. Location: 1200, 8.5cm from the nipple. Mass margins: Irregular. Mass shape: Irregular. Enhancement pattern: Heterogeneous. Kinetics: Fast/Washout. Recommendation: Definitive surgery. RIGHT BREAST: BENIGN FINDING (BIRADS Category 2). Scattered punctate enhancement consistent with FCD/hormonal changes. NARRATIVE: Clinical indication: Staging. Techniques: Multiplanar sequences were obtained pre- and post- gadolinium enhancement, to include SPGR weighted dynamic run-off and subtractionsequences obtained after the intravenous administration of 18ccs of Magnevist.Computer algorithm analysis for lesion detection and kinetic contrast enhancementcurve analysis was performed, using Confirma software. Background enhancement pattern (first post gadolinium images): Mild(25-50% breast). Amount of fibroglandular tissue: Scattered fibroglandular tissue. Comparison studies: Mammograms dated: 02/02/14 and 01/18/14. Biopsy dated: 02/02/14. Pathology Results: Left breast invasive mammary cancer. Date ofDiagnosis: 02/02/14. Axillary nodes: Visualization adequate bilaterally. Benign appearing axillary nodes: Bilaterally. Ibrahima Cohen MD IMG MRI ORDERABLES documented in this encounter Visit Diagnoses Diagnosis Invasive ductal carcinoma of breast, left- Primary Invasive ductal carcinoma of breast, left Invasive ductal carcinoma of breast, left documented in this encounter Care Teams Slab Lifting Engineer Relationship Specialty Start Date End Date Ag Trent MD [address] [place] [address] PCP - General 02/02/14 documented as of this encounter
--- OUTSIDE RECORDS SUMMARY | 2024-02-17 16:00 | XMS_ITS | Encounter Summary ---
Author Organization On License [facility] Address [facility] [place] [address] Care Team Providers Care Logistician Name Role Phone Ag Trent MD Primary Care Provider [phone] Encounter Details Date Type Department Care Team (Latest Contact Info) Description 02/22/2014 9:50 AM EST - 02/22/2014 10:28 AM [facility] En[facility] [place] [phone] Malignant neoplasm of breast (female), unspecified site Social History Tobacco Use Types Packs/Day Years Used Date Smoking Tobacco: Never Assessed Alcohol Use Standard Drinks/Week Comments No 0 [...] (E.C.) Take 81 mg by mouth daily. oxyCODONE (ROXICODONE) 5 mg Tablet Take 1 [...] Name Priority Date/Time Associated Diagnosis Comments MAMMO SPECIMEN Routine 02/22/2014 5:09 PM EST Malignant neoplasm of breast (female), unspecified site documented in this encounter Results * Mammo specimen (02/22/2014 [...] site documented in this encounter Care Teams Logistician Relationship Specialty Start Date End Date Ag Trent MD [address] [place] [id number] PCP - General 02/02/14 documented as of this encounter
--- OUTSIDE RECORDS SUMMARY | 2024-02-17 16:00 | XMS_ITS | Encounter Summary ---
Author Organization [facility] Address [facility] [place] [address] Care Team Providers Care Slitter Cut Off Operator Name Role Phone Ag Trent MD Primary Care Provider [phone] Encounter Details Date Type Department Care Team (Latest Contact Info) Description 03/02/2014 Multidisciplinary Ca re [place] [phone] Carol Thakkar MD [facility] [place] [address] Social History Tobacco Use Types Packs/Day Years Used Date Smoking Tobacco: Never Assessed Alcohol Use Standard Drinks/Week Comments No 0 (1 standard drink = 0.6 oz pur e alcohol) Sex and Gender Information Value Date Recorded Sex Assigned at Not on file Gender Identity Not on file Sexual Orientation Not on file documented as of this encounter Progress Notes * Carol Thakkar MD - 03/02/2014 12:57 PM EST Comprehensive Breast Program Tumor Board Note Narda Rivera is a 63-year-old woman with newly diagnosed left breast cancer. Narda had a screening mammogram that showed a mass in her upper outer left breast with calcifications. Ultrasound showed a 1.4 cm mass, it is located at 1 o'clock 7 cm from her nipple. There was a 4 mm mass seen on US about 1 cm away from the main mass. The main mass was biopsied showing infiltrating ductal and lobular carcinoma, ER positive, HER2 negative. MRI was then performed that showed the mass with multiple small satellites around it. The total complex of mass and satellites was 40 x 33 x 20 mm. One of the satellites can best be seen on series 6 image 61 of the MRI where the satellite looks like it is just slightly anterior to the main mass. Her nodes were negative on MRI. Right mammogram and right MRI were both negative and she has not felt any masses in her right breast or her left breast. She opted for breast conservation: ---Pathologic Diagnosis--- A - Left breast, lumpectomy: [...] count: Score = 3 Total Khalif Score: Flom Grade III: 8-9 points DCIS: Ductal Carcinoma [...] ER/NE/HER2: ER/NE/Her2 Comment: Please see prior biopsy [id number]. HER2 FISH will be repeated on this sample. PRIMARY TUMOR (pT): pT2: Tumor more than 2.0 cm but not more than 5.0 cm in greatest dimension REGIONAL LYMPH NODES (pN): pN1a: Metastasis in 1 to 3 axillary lymph nodes TMRBLKI: A3, A4, A7 ---Comment--- Multiple satellite foci of invasive carcinoma ranging in size from <0.1 cm to 0.4 cm, and which are associated with lymphovascular invasion, are present adjacent to the main 3.5 cm mass. ---Microscopic Description--- Recommendations: Surgery:no additional surgery recommended Medical Oncology: consider enrollment on B47 trial. Consider enrollment on D1230 (exercise) trial. Consider enrollment ofn S1007 (oncotype for node positive patients) or D1207 (MTor inhibitor in addition to chemo if oncotype > 25). Radiation Oncology: Recommend breast conserving radiation to include SC nodes given 2 positive nodes absent dissection. Consider systemic staging given possibility of stage 3 disease documented in this encounter Plan of Treatment Not on file documented as of this encounter Visit Diagnoses Not on filedocumented in this encounter Care Teams Slitter Cut Off Operator Relationship Specialty Start Date End Date Ag Trent MD [address] [place] [address] PCP - General 02/02/14 documented as of this encounter
--- OUTSIDE RECORDS SUMMARY | 2024-02-17 16:00 | XMS_ITS | Encounter Summary ---
Author Organization [facility] Address [facility] [address] Care Team Providers Care Copy Operator Name Role Phone Ag Trent MD Primary Care Provider [phone] Encounter Details Date Type Department Care Team (Latest Contact Info) Description 02/02/2014 9:00 AM EST - 02/02/2014 11:59 PM EST Hospital [place] [phone] Abnormal mammogram, unspecified Social History Tobacco Use Types Packs/Day Years [...] Diagnosis Comments MAMMO DIRECT DIGITAL UNILATERAL Routine 02/02/2014 10:23 AM EST Abnormal mammogram, unspecified MOLECULAR GENETICS REPORT Routine 2013 9:58 AM EST IMMUNOHISTOCHEMISTRY REPORT Routine 07/2013 9:58 AM EST SURGICAL PATHOLOGY REPORT Routine 2013 9:58 AM EST documented in this encounter Results * Mammo direct digital unilateral (02/02/2014 10:23 AM EST) Anatomical Region Laterality Modality Breast N/A Mammography 02/02/2014 10:2 3 AM EST Impressions 02/03/2014 4:58 PM EST Impression: Concordant result Recommendation: Surgical referral and MRI as conveyed to the patient and the CBP. ??NOTE: ??she has a satellite lesion (5mm) that is 8mm inf-lateral to the main mass. ??I did not biopsy this separately as it can be excised at the time of the main mass, a 2nd NLOC can be used if felt necessary. ?? I was present with the resident, Dr. Tao, for the ellis component(s) of the procedure and otherwise remained immediately available for the duration of the procedure. I attest to having personally viewed the images/test and approve the above interpretation. Home phone: [phone] Film and interpretation reviewed by the attending Narrative 02/03/2014 4:58 PM EST ULTRASOUND GUIDED BIOPSY OF THE LEFT BREAST ON 02/02/14: Informed consent was obtained. Using sterile technique and 1% Lidocaine used for local anesthesia, a skin incision was made and a biopsy was performed using Ultrasound for image guidance. Clinical indication: Left breast 14mm mass in the upper, outer quadrant at 0100, 7cm from the nipple. 14-gauge Achieve device 2 core biopsy specimens obtained. ?? A 17-gauge Ultracore (US) [place] marker clip was placed. Cranio-caudal and lateral digital mammography performed to determine biopsy marker placement, which was shown to be at the biopsy site. Satisfactory sampling was obtained. There were no procedural complications. Imaging diagnosis: Invasive cancer versus atypical fibroadenoma. Pathologic diagnosis: invasive mammary cancer. ?? Procedure Note Tavares Mcghee MD - 02/03/2014 ULTRASOUND GUIDED BIOPSY OF THE LEFT BREAST ON 02/02/14: Informed consent was obtained. Using sterile technique and 1% Lidocaineused for local anesthesia, a skin incision was made and a biopsy was performedusing Ultrasound for image guidance. Clinical indication: Left breast 14mm mass in the upper, outer quadrant at 0100, 7cm from the nipple. 14-gauge Achieve device 2 core biopsy specimens obtained. A 17-gauge Ultracore (US) [place] marker clip was placed. Cranio-caudal and lateral digital mammography performed to determine biopsy markerplacement, which was shown to be at the biopsy site. Satisfactory sampling was obtained. There were no procedural complications. Imaging diagnosis: Invasive cancer versus atypical fibroadenoma. Pathologic diagnosis: invasive mammary cancer. IMPRESSION Impression: Concordant result Recommendation: Surgical referral and MRI as conveyed to the patient andthe CBP. NOTE: she has a satellite lesion (5mm) that is 8mm inf-lateral tothe main mass. I did not biopsy this separately as it can be excised at thetime of the main mass, a 2nd NLOC can be used if felt necessary. I was present with the resident, Dr. Tao, for the ellis component(s) ofthe procedure and otherwise remained immediately available for the duration ofthe procedure. I attest to having personally viewed the images/test andapprove the above interpretation. Home phone: [phone] Film and interpretation reviewed by the attending Nancy Cam MD IMG MAMM O ORDERABLES * Molecular Genetics Report (02/02/2014 9:58 AM EST) Molecular Report ? [facility] ? Provider: ?? TAVARES MCGHEE ?Pt. Name: ?? KARIN, NARDA ? Acc #: ?[id number] ?Pt. ? Col Date: ?? 02/02/2014 ? /Sex: ?1950,(63 years),Female ? Rec Date: ?? 02/02/2014 ? LOC: ?3S ? MOLECULAR GENETIC STUDIES ? ---REPORT OF DNA ANALYSIS--- ? HER2 FISH and IHC were performed: ? HER2(ERBB2)FISH, BREAST ? METHOD: ??Fluorescence in situ hybridization (FISH) with chromosome 17 ? centromere (17p11.1-q11.1) probe and a locus specific probe for the HER2 ? gene locus (17q11.2-q12). ? SAMPLE ANALYZED: A1-7 ? RESULT: ?NEGATIVE FOR HER2/DEL AMPLIFICATION ?TOTAL # SIGNALS/TOTAL # NUCLEI COUNTED FOR HER2 PROBE = 268 ?TOTAL # SIGNALS/TOTAL # NUCLEI COUNTED FOR CEP-17 PROBE = 198 ?HER2 TO CEP-17 RATIO = 1.4 ? (NORMAL RANGE <2.0) ?TOTAL # NUCLEI COUNTED = 80 ? Interpretation: ??Paraffin-embedded tissue sections were submitted for ? HER2(ERBB2)gene amplification analysis by FISH. ??Direct analysis was ? performed using the Roojoom Kit. ??Slide adequacy and signal enumeration ? were evaluated and satisfactory for both control and patient slides. ??A ? signal ratio derived from the HER2 probe and the CEP-17 centromere probe of ? 2.0 is considered positive for HER2 gene amplification. ? The 2013 ASCO/CAP guideline recommendation for HER2 testing in breast ? cancer states that samples with a HER2 to CEP-17 ratio of less than 2.0 are ? non-amplified. Specimens with a HER2 to CEP-17 range of 2.0 are considered ? amplified. ? This test is approved by the U.S. FDA for clinical diagnostic use. ? Reference: Priyanka CEBALLOS, et al. Recommendations for human epidermal growth ? factor receptor 2 testing in breast cancer: [place] Society of Clinical ? Oncology/College of [place] [employer] clinical practice guideline ? update. J Clin Oncol.2013 Nov . ? TEST: HER2 (C-erbB-2) Immunohistochemistry ? RESULT: Equivocal (2+) immunoreactivity* ? Distribution ? Intensity ? % of cells ? C-erbB-2 (4B5) ?Incomplete membrane ??Weak ?10-20% ? [facility] ? Provider: ?? TAVARES MCGHEE ?Pt. Name: ?? FRAZIER, NARDA ? Acc #: ?[id number] ?Pt. ? Col Date: ?? 02/02/2014 ? /Sex: ?1950,(63 years),Female ? Rec Date: ?? 02/02/2014 ? LOC: ?3S ? MOLECULAR GENETIC STUDIES ? *Nct9Edb Overexpression Assessment ?------- ? Interpretation ?Score ?Criteria ?------- ? Negative ?(0) ?No staining observed or membrane ?staining that is incomplete and is ?faint/barely perceptible and within 10% ?of tumor cells ? Negative ?(1+) ? Incomplete membrane staining that is ?faint/barely perceptible and within >10% ?of tumor cells ? Equivocal ? (2+) ? Circumferential staining that is ?incomplete and/or weak/moderate and ?within >10% of tumor cells or complete ?and circumferential membrane staining ?that is intense and within 10% of tumor ?cells. ? Positive ?(3+) ? Circumferential membrane staining that ?is complete, intense, and within >10% of ?tumor cells ? Diagnostic categories have been adjusted to reflect treatment guidelines ? (ASCO/CAP guidelines 2013) ? Immunohistochemical assay was performed on paraffin-embedded tissue ? sections fixed in 10% neutral buffered formalin for 6-72 hours using the ? polymer technique with appropriate positive and negative controls. ??The ? assay was performed according to the line supervisor? s instructions using an ? Anti-HER2 (4B5) antibody. ? Reviewed by: ? Wicho Leiva MD ? Verified date: ??02/10/14 ??LJC ? Verified by: ?Abbie LANGSTON, Wicho Hassan ? (Electronic Signature) [facility] 02/02/2014 9:58 AM EST Tavares Mcghee MD PATHOLOGY/CYTOLOGY O RDERABLES [facility] * Immunohistochemistry Report (02/02/2014 9:58 AM EST) Immunohistochemistry Report ? [facility] ? Provider: ?? TAVARES MCGHEE ?Pt. Name: ?? NARDA FRAZIER ? Acc #: ?[id number] ?Pt. ? Col Date: ?? 02/02/2014 ? /Sex: ?1950,(63 years),Female ? Rec Date: ?? 02/02/2014 ? LOC: ?3S ? IMMUNOHISTOCHEMISTR Y ? ---Interpretation-- - ? Immunohistochemistr y Studies: ? These IHC studies provide the pathologist with adjunctive diagnostic ? information. Antibody specificity has been verified by testing antibodies ? on a series of in-house tissues with known immunohistochemical performance ? characteristics. The clinical interpretation of any antibody positive ? staining or its absence is evaluated within the context of clinical ? presentation, morphology, histopathological criteria and other diagnostic ? tests. ? ---Diagnosis--- ? Specimen: ? Left breast, core needle biopsy ? Histologic type: ?Invasive mammary carcinoma with ductal and lobular ? features ? ER immunoreactivity: ??Positive (11-90% cancer cells with immunostaining) ? Stain Intensity: Strong ? RI immunoreactivity: ??Positive (11-90% cancer cells with immunostaining) ? Stain Intensity: Strong ? HER2 FISH: ??see separate report ? -------- ? *Diagnostic ellis for hormone receptors (ASCO/CAP GUIDELINES, 2010): ? Negative immunoreactivity: <1% tumor cells with immunostaining ? Positive immunoreactivity: >1% tumor cells with immunostaining ? Immunohistochemical assays were performed on paraffin-embedded tissue ? sections fixed in 10% neutral buffered formalin for 6-72 hours using the ? polymer system technique with appropriate positive and negative controls. ? The assays were performed according to ? [facility] ? Provider: ?? TAVARES MCGHEE ?Pt. Name: ?? NARDA FRAZIER ? Acc #: ?[id number] ?Pt. ? Col Date: ?? 02/02/2014 ? /Sex: ?1950,(63 years),Female ? Rec Date: ?? 02/02/2014 ? LOC: ?3S ? IMMUNOHISTOCHEMISTR Y ? the line supervisor? s instructions using Anti-ER (SP1) and Anti-RI (16) ? antibodies. ? 02/04/14 ? KIM ? 02/04/14 Verified by: ? Wicho Leiva MD ? Pathologist ? (Electronic Signature) ? The attending pathologist whose signature appears on this report has ? reviewed all diagnostic slides and has edited the gross and/or ? microscopic portion of the report in rendering the final pathologic ? diagnosis. [facility] 02/02/2014 9:58 AM EST Tavares Mcghee MD PATHOLOGY/CYTOLOGY O RDERAORION Performing Organization Address City/State/[facility] Co de Phone Number [facility] * Surgical Pathology Report (02/02/2014 9:58 AM EST) Final Diagnosis 00- [id number] ? Location: 3S The signing pathologist has (i) examined the relevant preparation(s) for the specimen(s) and (ii) rendered or confirmed the diagnosis(es). . ? Pathology Molecular Genetics Report Results HER2 FISH and IHC were performed: HER2(ERBB2)FISH, BREAST METHOD: ??Fluorescence in situ hybridization (FISH) with chromosome 17 centromere (17p11.1-q11.1) probe and a locus specific probe for the HER2 gene locus (17q11.2- q12). SAMPLE ANALYZED: A1-7 RESULT: ?NEGATIVE FOR HER2/DEL AMPLIFICATION ? TOTAL # SIGNALS/TOTAL # NUCLEI COUNTED FOR HER2 PROBE = 268 ? TOTAL # SIGNALS/TOTAL # NUCLEI COUNTED FOR CEP-17 PROBE = 198 ? HER2 TO CEP-17 RATIO = 1.4 ? (NORMAL RANGE <2.0) ? TOTAL # NUCLEI COUNTED = 80 Interpretation: ??Paraffin-embedded tissue sections were submitted for HER2(ERBB2)gene amplification analysis by FISH. ??Direct analysis was performed using the Roojoom Kit. ??Slide adequacy and signal enumeration were evaluated and satisfactory for both control and patient slides. ??A signal ratio derived from the HER2 probe and the CEP-17 centromere probe of ?2.0 is considered positive for HER2 gene amplification. The 2013 ASCO/CAP guideline recommendation for HER2 testing in breast cancer states that samples with a HER2 to CEP-17 ratio of less than 2.0 are non-amplified. Specimens with a HER2 to CEP-17 range of ?2.0 are considered amplified. This test is approved by the U.S. FDA for clinical diagnostic use. Reference: Priyanka CEBALLOS, et al. Recommendations for human epidermal growth factor receptor 2 testing in breast cancer: [place] Society of Clinical Oncology/College of [place] Pathologists clinical practice guideline update. J Clin Oncol.2013 Jan 29. TEST: HER2 (C-erbB-2) Immunohistochemistry RESULT: Equivocal (2+) immunoreactivity* ?Distribution ? Intensity ? % of cells ?C-erbB-2 (4B5) ?Incomplete membrane ??Weak ?10-20% *Uux5Neg Overexpression Assessment ?------- ? Interpretation ?Score ?Criteria ?------- ? Negative ?(0) ?No staining observed or membrane ? staining that is incomplete and is ? faint/barely perceptible and within ?10% ? of tumor cells Negative ?(1+) ? Incomplete membrane staining that is . Results ? faint/barely perceptible and within >10% ? of tumor cells Equivocal ? (2+) ? Circumferential staining that is ? incomplete and/or weak/moderate and ? within >10% of tumor cells or complete ? and circumferential membrane staining ? that is intense and within ?10% of tumor ? cells. Positive ?(3+) ? Circumferential membrane staining that ? is complete, intense, and within >10% of ? tumor cells Diagnostic categories have been adjusted to reflect treatment guidelines (ASCO/CAP guidelines 2013) Immunohistochemical assay was performed on paraffin-embedded tissue sections fixed in 10% neutral buffered formalin for 6-72 hours using the polymer technique with appropriate positive and negative controls. ??The assay was performed according to the line supervisor 's instructions using an Anti-HER2 (4B5) antibody. Reviewed by: Wicho Leiva MD Verified date: ??02/10/14 ??LJC Verified by: ?Abbie LANGSTON, Wicho Hassan ?(Electronic Signature) ?Pathology Immunohistochemistry Report Interpretation Immunohistochemistry Studies: These IHC studies provide the pathologist with adjunctive diagnostic information. Antibody specificity has been verified by testing antibodies on a series of in-house tissues with known immunohistochemical performance characteristics. The clinical interpretation of any antibody positive staining or its absence is evaluated within the context of clinical presentation, morphology, histopathological criteria and other diagnostic tests. Diagnosis Specimen: ? Left breast, core needle biopsy Histologic type: ?Invasive mammary carcinoma with ductal and lobular ?features ER immunoreactivity: ??Positive (11-90% cancer cells with immunostaining) ?Stain Intensity: Strong RI immunoreactivity: ??Positive (11-90% cancer cells with immunostaining) ?Stain Intensity: Strong HER2 FISH: ??see separate report ? *Diagnostic ellis for hormone receptors (ASCO/CAP GUIDELINES, 2010): ?Negative immunoreactivity: <1% tumor cells with immunostaining ?Positive immunoreactivity: ?? >1% tumor cells with immunostaining Immunohistochemical assays were performed on paraffin-embedded tissue sections fixed in 10% neutral buffered formalin for 6-72 hours using the polymer system technique with appropriate positive and negative controls. ??The assays were performed . Diagnosis according to the line supervisor ??'s instructions using Anti-ER (SP1) and Anti-RI (16) antibodies. 02/04/14 KIM 02/04/14 Verified by: ? Abbie LANGSTON, Wicho Hassan ?Pathologist ?(Electronic Signature) The attending pathologist whose signature appears on this report has reviewed all diagnostic slides and has edited the gross and/or microscopic portion of the report in rendering the final pathologic diagnosis. ?Pathology Surgical Pathology Final Report Clinical Information Specimen Submitted: A - Left breast US BX 14G Clinical History: Left breast mass Clinical Diagnosis: Invasive CA, atypical fibroadenoma Gross Description A - Labeled/Fixative: Left breast US BX, formalin. Quantity/Size: Two, 1.5 and 1.7 cm. Tissue Description: Fibrotic needle core biopsies. Ischemic Time: Two minutes. Sections/Processing: (T1) ??ejr Diagnosis Needle biopsies: ?Left breast Diagnosis: ?1. Invasive mammary carcinoma with ductal and lobular ?features (see Comment) ?2. Lymphovascular invasion present Microcalcifications: ??N/A CR-0 02/03/14 KIM 02/03/14 Verified by: ? Abbie LANGSTON, Wicho Hassan ?Pathologist ?(Electronic Signature) The attending pathologist whose signature appears on this report has reviewed all diagnostic slides and has edited the gross and/or microscopic portion of the report in rendering the final pathologic diagnosis. Comment Studies for ER, RI, and HER2 have been ordered; results will be issued in separate reports. 02/10/2014 1:10 PM EST [facility] BREAST STRUCTURE / Unknown 02/02/2014 9:58 AM EST 02/02/2014 9:58 AM EST Tavares Mcghee MD PATHOLOGY/CYTOLOGY O ALETHEA Performing Organization Address City/State/[facility] Co nv Phone Number [facility] [place] [address] documented in this encounter Visit Diagnoses Diagnosis Abnormal mammogram, unspecified documented in this encounter Care Teams Copy Operator Relationship Specialty Start Date End Date Ag Trent MD [address] [place] [address] PCP - General 02/02/14 documented as of this encounter
--- OUTSIDE RECORDS SUMMARY | 2024-02-17 16:00 | XMS_ITS | Encounter Summary ---
[place] [address] Care Team Providers Care Snuff Grinder And Screener Name Role Phone Ag Trent MD Primary Care Provider [phone] Encounter Details Date Type Department Care Team (Latest Contact Info) Description 02/02/2014 9:00 AM EST - 02/02/2014 11:59 PM EST Hospital [place] [id number] CLINIC, Ag Silver MD [address] [place], [place] [id number] Abnormal mammogram, unspecified Discharge Disposition: Home Social History Tobacco Use [...] Name Priority Date/Time Associated Diagnosis Comments MAMMO US BIOPSY BILATERAL Routine 02/02/2014 10:21 AM EST SPECIMEN TO PATHOLOGY Routine 02/02/2014 9:58 AM EST documented in this encounter Results * Mammo- US biopsy (02/02/2014 10:21 AM EST) Anatomical Region Laterality Modality Breast N/A Mammography 02/02/2014 10:2 1 AM EST Impressions 02/03/2014 4:58 PM EST [...] and approve the above interpretation. Home phone: [phone] Film and interpretation reviewed by the attending [...] specimens obtained. ?? A 17-gauge Ultracore (US) [place] marker clip was placed. Cranio-caudal and lateral digital mammography performed to determine biopsy marker placement, which was shown to be at the biopsy site. Satisfactory sampling was obtained. There were no procedural complications. Imaging diagnosis: Invasive cancer versus atypical fibroadenoma. Pathologic diagnosis: invasive mammary cancer. ?? Procedure Note Edith Mcghee MD - 02/03/2014 ULTRASOUND GUIDED BIOPSY [...] biopsy specimens obtained. A 17-gauge Ultracore (US) [place] marker clip was placed. Cranio-caudal and lateral [...] images/test andapprove the above interpretation. Home phone: [phone] Film and interpretation reviewed by the attending Ag Trent MD IMG MAMMO ORDERABLES * Specimen to Pathology (surgical or derm) (02/02/2014 9:58 AM EST) AP Specimen 02/02/2014 9:58 AM EST 02/02/2014 9:58 AM EST Narrative MARI URIBE - 02/02/2014 9:58 AM EST Specimen requisition ordered. ??Separate Pathology report to follow Edith Mcghee MD PATHOLOGY/CYTOLOGY O RDERABLES [facility] documented in this encounter Visit Diagnoses Diagnosis Abnormal mammogram, unspecified documented in this encounter Administered Medications Inactive Administered Medications - up to 3 most recent administrations Medication Order MAR Action Action Date Dose Rate Site lidocaine (XYLOCAINE) 10 mg/mL (1 %) injection 10 mg 10 mg, Intradermal, ONCE, 1 dose, On Fri02/02/14 at 1000, Routine Given 02/02/2014 10:00 AM EST 10 mg documented in this encounter Care Teams Snuff Grinder And Screener Relationship Specialty Start Date End Date Ag Trent MD [address] [place] [address] PCP - General 02/02/14 documented as of this encounter
--- OUTSIDE RECORDS SUMMARY | 2024-02-17 16:00 | XMS_ITS | Encounter Summary ---
Author Organization [place] [address] Care Team Providers Care Supervisor Pastry Name Role Phone Ag Trent MD Primary Care Provider [phone] Encounter Details Date Type Department Care Team (Late st Contact Info) Description 02/22/2014 [place] [address] Berkley Soto MSW Social History Tobacco Use [...] Progress Notes * Berkley Soto MSW - 02/22/2014 2:16 PM EST [facility] met briefly with pt and her friend in Same Day surgery this afternoon. Pt is scheduled to have a partial mastectomy and sentinel node dissection as she was recently diagnosed with invasive mammary carcinoma. Pt states she is nervous but has support her friend, Enrique, who will be assisting her through her recovery. Pt was encouraged to contact me with any questions or concerns. - [facility] will continue to provide support and resources to pt. documented in this encounter Plan of Treatment Not on file documented as of this encounter Visit Diagnoses Not on filedocumented in this encounter Care Teams Supervisor Pastry Relationship Specialty Start Date End Date Ag Trent MD [address] [place] [address] PCP - General 02/02/14 documented as of this encounter
--- OUTSIDE RECORDS SUMMARY | 2024-02-17 16:00 | XMS_ITS | Encounter Summary ---
Author Organization [facility] [address] Care Team Providers Care Mortgage Loan Processing Clerk Name Role Phone Ag Trent MD Primary Care Provider [phone] Encounter Details Date Type Department Care Team (Late st Contact Info) Description 02/11/2014 Notes [place] [address] Berkley Soto MSW Social History Tobacco Use Types Packs/Day Years Used Date Smoking Tobacco: Never Assessed Sex and Gender Information Value Date Recorded Sex Assigned at Not on file Gender Identity Not on file Sexual Orientation Not on file documented as of this encounter Miscellaneous Notes * Advance Care Plan Note - Berkley Soto MSW - 02/11/2014 1:52 PM EST ADVANCE CARE PLANNING NOTE I. WHEN TO USE THIS FORM: This Advance Care Planning Note should be used for patients with decisional capacity who have not executed advance directives, such as a Durable Power of Database Analyst for Health Care. DETERMINATION OF CAPACITY The basis for decisional capacity entails all of the following criteria. The patient, Narda Rivera, must be able (in a general way) to understand: ?? Her condition ?? Treatment alternatives ?? Potential benefits and risks of proposed treatments/interventions The patient has the capacity to make decisions: Yes If the patient does not have decisional capacity, go no further. This form cannot be used. II. DESIGNATION OF DECISION MAKER The patient, Narda Rivera, expresses the following preference: Designation of health care agent: The patient, Narda Rivera, identifies the following individual to serve as a health care agent, authorized to speak for the individual in making medical treatment decisions in the future if he/she is unable to speak for him/herself. Name: Enrique Cosby Relationship to patient: Friend Alternate decision maker: Name: No one else was identified. III. OPTIONAL EXPRESSION OF PREFERENCES FOR SPECIFIC LIFE-PROLONGING TREATMENTS The patient, Narda Rivera, if indicated below, expresses preferences for specific life-prolonging treatments to be used or withheld/withdrawn at a future time of incapacity, such as: This was not discussed. *If the patient indicates a desire to avoid CPR at the present time, a Do Not Resuscitate order should be written AND a corresponding Code Status should be completed. IV: OTHERS PRESENT The following person/people were also present during the discussion. Name(s) with role or relationship to patient: Enrique Cosby, friend V. OTHER COMMENTS Pt believes she has completed a living will. She was given AD forms so she can designate her friend, Enrique, as her health care proxy. Pt was asked to provide copies of her completed ADs so they can bescanned into her record. documented in this encounter Plan of Treatment Not on file documented as of this encounter Visit Diagnoses Not on filedocumented in this encounter Care Teams Mortgage Loan Processing Clerk Relationship Specialty Start Date End Date Ag Trent MD [address] [place] [address] PCP - General 02/02/14 documented as of this encounter
--- OUTSIDE RECORDS SUMMARY | 2024-02-17 16:00 | XMS_ITS | Encounter Summary ---
Author Organization [facility] [place] [address] Care Team Providers Care Machine Feeder Raw Stock Name Role Phone Latoya Quintanilla MD Primary Care Provider [phone] Encounter Details Date Type Department Care Team (Late st Contact Info) Description 01/24/2014 [place] [phone] Ag Trent MD [address] [place] [address] Social History Tobacco Use Types [...] Comments REQUEST FOR 2ND READ MAMMO Routine 01/24/2014 2:05 PM EDT documented in this encounter Results * Request for 2nd read Mammo (01/24/2014 2:05 PM EDT) Anatomical Region Laterality Modality Other 01/24/2014 2:05 PM EDT Narrative 01/25/2014 5:23 PM EDT INTERPRETATION OF OUTSIDE MAMMOGRAM (PERFORMED ON 01/18/14 AND 01/21/14) FROM [facility] DATED 01/25/14: ?? DIAGNOSTIC IMAGING SUMMARY: ?? LEFT BREAST LESION 1: SUSPICIOUS (BIRADS Category 4C-moderate concern for malignancy). ?? Finding: Irregular mass. ?? Size: 14mm. ?? Location: 0100, 6.8cm from the nipple. ?? Recommendation: Ultrasound guided core biopsy. ?? LEFT BREAST LESION 2: SUSPICIOUS (BIRADS Category 4). ?? Finding: Irregular, hypoechoic mass. ?? Size: 3.8mm. ?? Location: 0100, 7cm from the nipple. ?? Recommendation: Ultrasound guided core biopsy. ?? RIGHT BREAST: NEGATIVE (BIRADS Category 1). ?? NARRATIVE: ?? CLINICAL INDICATION: I have been asked to consult on this patient by Dr. Ag Trent because he believes a review of this study may change or alter the care of this patient. ?? TECHNIQUE: Mammograms from [facility] dated 01/18/14 and 01/21/14 are available for interpretation. Comparisons from 2009 and 2011 are available. ?? FINDINGS: The breasts are composed of heterogeneously dense fibroglandular tissue without significant interval change. ?? Within the Left upper, outer quadrant there is an area of focal asymmetry and architectural distortion and adjacent calcifications. Compression views demonstrate persistent asymmetry; however, the distortion is not as clearly seen in the MLO compression views and perhaps better seen in the CC view. Associated pleomorphic calcifications are present. ? There is a targeted breast ultrasound demonstrating an irregular hypoechoic mass measuring 14mm in greatest dimension with some internal calcifications. There is an adjacent 3.8mm lesion that may represent a satellite lesion that is approximately 12mm away from the dominant mass. Biopsy of both masses recommended. ?? Within the Right breast there are no findings concerning for malignancy. Procedure Note Nancy Hummel MD - 01/25/2014 INTERPRETATION OF OUTSIDE MAMMOGRAM (PERFORMED ON 01/18/14 AND 01/21/14)FROM [facility] DATED 01/25/14: DIAGNOSTIC IMAGING SUMMARY: LEFT BREAST LESION 1: SUSPICIOUS (BIRADS Category 4C-moderate concern for malignancy). Finding: Irregular mass. Size: 14mm. Location: 0100, 6.8cm from the nipple. Recommendation: Ultrasound guided core biopsy. LEFT BREAST LESION 2: SUSPICIOUS (BIRADS Category 4). Finding: Irregular, hypoechoic mass. Size: 3.8mm. Location: 0100, 7cm from the nipple. Recommendation: Ultrasound guided core biopsy. RIGHT BREAST: NEGATIVE (BIRADS Category 1). NARRATIVE: CLINICAL INDICATION: I have been asked to consult on this patient by Dr. Ag Trent because he believes a review of this study may change oralter the care of this patient. TECHNIQUE: Mammograms from [facility] dated 01/18/14 and 01/21/14 are availablefor interpretation. Comparisons from 2009 and 2011 are available. FINDINGS: The breasts are composed of heterogeneously dense fibroglandular tissue without significant interval change. Within the Left upper, outer quadrant there is an area of focal asymmetryand architectural distortion and adjacent calcifications. Compression views demonstrate persistent asymmetry; however, the distortion is not asclearly seen in the MLO compression views and perhaps better seen in the CC view. Associated pleomorphic calcifications are present. There is a targeted breast ultrasound demonstrating an irregularhypoechoic mass measuring 14mm in greatest dimension with some internalcalcifications. There is an adjacent 3.8mm lesion that may represent a satellite lesionthat is approximately 12mm away from the dominant mass. Biopsy of both masses recommended. Within the Right breast there are no findings concerning for malignancy. Ag Trent MD IMG OUTSIDE INTERPRE TATION ORDERABLES documented in this encounter Visit Diagnoses Not on filedocumented in this encounter Care Teams Machine Feeder Raw Stock Relationship Specialty Start Date End Date Latoya Quintanilla MD [address] [place] [address] PCP - General 02/20/10 02/01/14 documented as of this encounter
--- OUTSIDE RECORDS SUMMARY | 2024-02-17 16:00 | XMS_ITS | Encounter Summary ---
Author Organization [facility] Address [facility] [place] [address] Care Team Providers Care Film Vault Supervisor Name Role Phone Ag Trent MD Primary Care Provider [phone] Encounter Details Date Type Department Care Team (Late st Contact Info) Description 03/04/2014 Telephone [place] [phone] Lanie Rai, RN Social History Tobacco Use Types Packs/Day [...] encounter Miscellaneous Notes * Telephone Encounter - Lanie Rai, RN - 03/04/2014 9:16 AM EST Called Narda to follow up in regards to redness around her left nipple area. Refer to note 03/03/14 for details. She was able to see her PCP Dr. Trent yesterday and he thinks it is a resolving hematoma. Message sent to Dr. Cohen for his recommendations. She does have a follow up with Dr. Cohen 03/10/14. documented in this encounter Plan of Treatment Not on file documented as of this encounter Visit Diagnoses Not on filedocumented in this encounter Care Teams Film Vault Supervisor Relationship Specialty Start Date End Date Ag Trent MD [address] [place] [address] PCP - General 02/02/14 documented as of this encounter
--- OUTSIDE RECORDS SUMMARY | 2024-02-17 16:00 | XMS_ITS | Encounter Summary ---
Author Organization [facility] Address [facility] [place] [address] Care Team Providers Care Nursing Care Attendant Name Role Phone Ag Trent MD Primary Care Provider [phone] Encounter Details Date Type Department Care Team (Late st Contact Info) Description 03/10/2014 Notes Only Hematology [place] [address] Kirill Saavedra MD [facility] [address] [place] [address] Social History Tobacco Use Types Packs/Day Years Used Date Smoking Tobacco: Never Alcohol Use Standard Drinks/Week Comments No 0 (1 standard drink = 0.6 oz pur e alcohol) Sex and Gender Information Value Date Recorded Sex Assigned at Not on file Gender Identity Not on file Sexual Orientation Not on file documented as of this encounter Progress Notes * Yulissa Mcguire Teofilo - 03/15/2014 9:15 AM EST RESEARCH NURSE INFORMED CONSENT NOTE [id number]: Effects of an Exercise Intervention on Physical Activity during Chemotherapy for Patients with Early Stage Breast Cancer Date: 03/10/14 Object of visit: Met with Narda in 3K to tell her more about the exercise study during chemotherapytreatment which she had requested after Dr. Saavedra had told her about the study. Information Provided: I verbally explained the study requirements including fasting blood work at baseline and at end of the study, filling out several questionnaires and wearing a pedometer and recording her steps daily. In addition, at baseline and end of study she will have a physical therapy ary ointment for exercise recommendations and a Body Composition Analysis which measures amount of muscles and fat (test done by PT) and A Resting Metabolic Rate which measures amount of energy used during rest (done by this technical document writer/ research nurse). She will also receive weekly phone calls reporting her activity. Narda understands that participation is voluntary and she can change her mind at any time. Assessment and Outcome: Narda wanted to take home the consent to read through it and think about itover the weekend. I gave her a consent to take home and she agreed that she would call on Friday03/14/14 to let us know of her decision. Yulissa Mcguire RN documented in this encounter Plan of Treatment Not on file documented as of this encounter Visit Diagnoses Not on filedocumented in this encounter Care Teams Nursing Care Attendant Relationship Specialty Start Date End Date Ag Trent MD [address] [place] [address] PCP - General 02/02/14 documented as of this encounter
--- OUTSIDE RECORDS SUMMARY | 2024-02-17 16:00 | XMS_ITS | Encounter Summary ---
Author Organization [facility] Address [facility] [place] [address] Care Team Providers Care Catering Associate Name Role Phone Ag Trent MD Primary Care Provider Encounter Details Date Type Department Care Team (Late st Contact Info) Description 02/17/2014 Orders [place] [address] Ibrahima Cohen MD [facility] [place] [address] Malignant neoplasm of breast (female), unspecified site [...] site documented in this encounter Care Teams Catering Associate Relationship Specialty Start Date End Date Ag Trent MD [address] [place] [address] PCP - General 02/02/14 documented as of this encounter
--- OUTSIDE RECORDS SUMMARY | 2024-02-17 16:00 | XMS_ITS | Encounter Summary ---
Author Organization [facility] Address [facility] [place] [address] Care Team Providers Care Uke Driver Name Role Phone Ag Trent MD Primary Care Provider [phone] Encounter Details Date Type Department Care Team (Late st Contact Info) Description 02/22/2014 2:00 PM EST Anesthesia Event [place] [address] Marcia John MD [facility] [place] [address] Edgar Sevilla CRNA [facility] [place] [address] Anesthesia Record Procedure Summary Procedure Name Responsible Anesthesiologist Anesthesia Start Time Anesthesia Stop Time MASTECTOMY PARTIAL (WRVU 10.13) (Left: Breast) Marcia John MD 02/22/14 1400 02/22/14 1816 Events Date Time Event Comment 02/22/2014 1330 1400 AN Verify 1400 Start 1400 An Start Data 1410 An Induction 1411 An Intubation 1415 Anesthesia Ready 1416 Procedure Start 1630 Skin Incision 1735 Handoff The patient's c de la torre was reviewed. The current anestetic course as well as the anesthetic plans were also reviewed. 1806 Extubation/LMA Out 1806 an stop data 1816 Stop Meds Name Total Midazolam 2 mg lidocaine (PF) 20 mg Propofol 300 mg Rocuronium 70 mg PHENYLephrine 480 mcg ePHEDrine 15 mg Ondansetron 8 mg Dexamethasone 8 mg Neostigmine 3 mg Glycopyrrolate 0.4 mg ceFAZolin 4 g Ketamine 10 mg/mL 200 mg Propofol INF 2,970.06 mg Promethazine 6.25 mg diphenhydrAMINE 12.5 mg PHENYLephrine INF 580 mcg ketorolac 30 mg Lactated Ringers 600 mL * Agents Name O2 Air N2O Sevoflurane (et) * Blood No blood administrations on file. Lines, Drains, and Airways Type Details Placement Removal Incision 02/22/14; breast; 11/26/21 (LDA cleanup utility RA#[id number]); 1715 (LDA cleanup utility RA#[id number]) 02/22/14 0000 by Tanya Kim RN 11/26/21 1715 by Osmany Louise (RETIRED) Peripheral IV Line - Single Lumen 02/22/14; 1048; [id number]-atd-mrogck catheter system; 20 gauge; metacarpal vein (top of hand), right; 02/22/14; 199902/22/14 1048 by Lin Serrano RN 02/22/141999 by Minh Cid RN ETT Mask Ventilation: Ea sy (1); ETT Type: Cuffed, Oral; ETT Size: 7 mm; Mac Blade: 3; Notes: Asleep, Pre-O2, Stylette, Cricoid Pressure; Attempts: 1; Laryngoscopy Grade: 3; ETT Placement Verified By: Auscultation, Capnometry, Visual; Secured at Teeth: 22 cm; Inserted by: Edgar Sevilal YOUTH AGENT; Removal Date: 02/22/14; Removal Time: 180502/22/14 141 by Edgar Sevilla, YOUTH AGENT 02/22/14 180 by Cuauhtemoc Villarreal DO documented in this encounter Social History Tobacco Use Types Packs/Day Years Used Date Smoking Tobacco: Never Assessed Alcohol Use Standard Drinks/Week Comments No 0 (1 standard drink = 0.6 oz pur e alcohol) Sex and Gender Information Value Date Recorded Sex Assigned at Not on file Gender Identity Not on file Sexual Orientation Not on file documented as of this encounter OR Notes * Anesthesia Postprocedure Evaluation - Marcia John MD - 02/23/2014 1:27 PM EST Patient: Narda Rivera Procedure(s) Performed: Procedure(s): MASTECTOMY PARTIAL BIOPSY OR EXCISION OF LYMPH NODE(S), OPEN, DEEP AXILLARY NODE(S) SENTINEL NODE INJECTION MODIFIER SENTINEL NODE EXCISION Actual Anesthetic: general Patient location: PACU Post-op pain: Adequate analgesia Post-op nausea: no nausea or vomiting Last Vitals: Filed Vitals: 02/22/14 1933 BP: 146/55 Pulse: 74 Temp: Resp: 18 Post-op cardiovascular and respiratory status: is stable Level of consciousness: awake, alert and oriented Complications: no apparent complications and tolerated the procedure well Fluid Status: normal * Anesthesia Preprocedure Evaluation - Harpal Jean MD - 02/21/2014 11:01 PM EST Images from the original note were not included. Pre-Anesthesia Evaluation for: Narda Rivera a 63 y.o. female. Procedure(s): MASTECTOMY PARTIAL BIOPSY OR EXCISION OF LYMPH NODE(S), OPEN, DEEP AXILLARY NODE(S) SENTINEL NODE INJECTION MODIFIER SENTINEL NODE EXCISION Patient Active Problem List Diagnosis ??? Malignant neoplasm of left female breast (BREAST CANCER) No past medical history on file. No past surgical history on file. History Substance Use Topics ??? Smoking status: Not on file ??? Smokeless tobacco: Not on file ??? Alcohol Use: No History Drug Use ??? Yes ??? Special: Marijuana Allergies Allergen Reactions ??? Narcotic Antagonist Nausea And Vomiting Medications: MAR and/or home medications have been reviewed. Physical Exam: There were no vitals filed for this visit. There is no height or weight on file to calculate BMI. Airway Assessment: Mallampati: III TM distance: >3 FB Neck ROM: full Cardiovascular Assessment: cardiovascular exam normal Pulmonary Assessment: pulmonary exam normal Dental Assessment: - normal exam (+) upper dentures Misc Assessment: Patient is wearing No contact(s). IV access: Peripheral line Anesthesia Plan: ASA 2 general, with a(n) intravenous induction Patient with significant history of PONV. Plan Propofol anesthesia with ketamine for pain control and post operative IV tylenol. Scopolamine patch Severe GERD will need an ETT. Avoid or minimize opiates and inhalational anesthesia. Region - Other Informed Consent: Anesthetic plan and risks discussed with patient and spouse. Plan discussed with YOUTH AGENT. Misc. Assessment: documented in this encounter Plan of Treatment Not on file documented as of this encounter Visit Diagnoses Not on filedocumented in this encounter Administered Medications Inactive Administered Medications - up to 3 most recent administrations Medication Order MAR Action Action Date Dose Rate Site ceFAZolin (ANCEF) 1g in dextrose 5% 50mL PRN, Starting on Fri02/22/14 at 1415, Until Fri02/22/14 at 1816, Administer over 30 Minutes, Anesthesia Intra-op Given 02/22/2014 4:30 PM EST 2 g Given 02/22/2014 2:15 PM EST 2 g dexamethasone (DECADRON) injection PRN, Starting on Fri02/22/14 at 1428, Until Fri02/22/14 at 1816, Anesthesia Intra-op, Routine Given 02/22/2014 2:28 PM EST 8 mg diphenhydrAMINE (BENADRYL) injection PRN, Starting on Fri02/22/14 at 1423, Until Fri02/22/14 at 1816, Itching, Anesthesia Intra-op, Routine Given 02/22/2014 2:23 PM EST 12.5 mg ePHEDrine Sulfate in sodium chloride 0.9% (PF) 50 mg/10 mL (5 mg/mL) injection Syrg PRN, Starting on Fri02/22/14 at 1519, Until Fri02/22/14 at 1816, Anesthesia Intra-op Given 02/22/2014 5:23 PM EST 5 mg Given 02/22/2014 3:19 PM EST 5 mg Given 02/22/2014 3:00 PM EST 5 mg glycopyrrolate (ROBINUL) injection PRN, Starting on Fri02/22/14 at 1744, Until Fri02/22/14 at 1816, Anesthesia Intra-op, Routine Given 02/22/2014 5:44 PM EST 0.4 mg ketamine (KETALAR) 10 mg/mL bolus injection (Anesthesia) PRN, Starting on Fri02/22/14 at 1415, Until Fri02/22/14 at 1816, Anesthesia Intra-op Given 02/22/2014 4:45 PM EST 20 mg Given 02/22/2014 4:32 PM EST 20 mg Given 02/22/2014 4:15 PM EST 20 mg ketorolac (TORADOL) injection PRN, Starting on Fri02/22/14 at 1741, Until Fri02/22/14 at 1816, Pain, Anesthesia Intra-op, Routine Given 02/22/2014 5:41 PM EST 30 mg lactated ringers infusion CONTINUOUS PRN, Starting on Fri02/22/14 at 1400, Until Fri02/22/14 at 1816, Anesthesia Intra-op New Bag 02/22/2014 2:00 PM EST lidocaine (PF) (XYLOCAINE) 100 mg/5 mL (2 %) injection PRN, Starting on Fri02/22/14 at 1410, Until Fri02/22/14 at 1816, Anesthesia Intra-op, Routine Given 02/22/2014 2:10 PM EST 20 mg midazolam (PF) (VERSED) 1 mg/mL injection PRN, Starting on Fri02/22/14 at 1400, Until Fri02/22/14 at 1816, Sleep, Anesthesia Intra-op, Routine Given 02/22/2014 2:00 PM EST 2 mg neostigmine (PROSTIGMINE) injection PRN, Starting on Fri02/22/14 at 1744, Until Fri02/22/14 at 1816, Anesthesia Intra-op, Routine Given 02/22/2014 5:44 PM EST 3 mg ondansetron (ZOFRAN) injection PRN, Starting on Fri02/22/14 at 1703, Until Fri02/22/14 at 1816, Nausea, Anesthesia Intra-op, Routine Given 02/22/2014 5:03 PM EST 8 mg PHENYLephrine (MART-SYNEPHRINE) 20 mg in sodium chloride 250 mL infusion CONTINUOUS PRN, Starting on Fri02/22/14 at 1525, Until Fri02/22/14 at 1816, Anesthesia Intra-op, Routine [facility] 02/22/2014 3:25 PM EST 20 mcg/min 15 mL/hr PHENYLephrine HCl in NS (PF) (MART-SYNEPHRINE) 0.8 mg/10 mL (80 mcg/mL) injection Syrg PRN, Starting on Fri02/22/14 at 1420, Until 11/25/14 at 1816, Anesthesia Intra-op, Routine Given 02/22/2014 3:25 PM EST 80 mcg Given 02/22/2014 3:13 PM EST 80 mcg Given 02/22/2014 3:05 PM EST 80 mcg promethazine (PHENERGAN) injection PRN, Nausea, Starting on Fri02/22/14 at 1430, Until Fri02/22/14 at 1816, Anesthesia Intra-op Given 02/22/2014 2:30 PM EST 6.25 mg propofol (DIPRIVAN) 10 mg/mL bolus injection (Anesthesia) PRN, Starting on Fri02/22/14 at 1410, Until Fri02/22/14 at 1816, Anesthesia Intra-op Given 02/22/2014 2:59 PM EST 50 mg Given 02/22/2014 2:46 PM EST 50 mg Given 02/22/2014 2:10 PM EST 200 mg propofol (DIPRIVAN) infusion CONTINUOUS PRN, Starting on Fri02/22/14 at 1412, Until Fri02/22/14 at 1816, Anesthesia Intra-op, Routine Rate/Dose Change 02/22/2014 5:02 PM EST 130 mcg/kg/min 65.4 mL/hr Rate/Dose Change 02/22/2014 3:13 PM EST 150 mcg/kg/min 75. 5 mL/hr Rate/Dose Change 02/22/2014 2:59 PM EST 170 mcg/kg/min 85. 6 mL/hr rocuronium (ZEMURON) injection PRN, Starting on Fri02/22/14 at 1410, Until Fri02/22/14 at 1816, Anesthesia Intra-op, Routine Given 02/22/2014 3:00 PM EST 10 mg Given 02/22/2014 2:45 PM EST 20 mg Given 02/22/2014 2:10 PM EST 40 mg documented in this encounter Care Teams Uke Driver Relationship Specialty Start Date End Date Ag Trent MD [address] [place] [address] PCP - General 02/02/14 documented as of this encounter
--- OUTSIDE RECORDS SUMMARY | 2024-02-17 16:00 | XMS_ITS | Encounter Summary ---
Author Organization [facility], [facility] Address [facility] [place] [address] Care Team Providers Care Client Project Coordinator Name Role Phone Ag Trent MD Primary Care Provider [phone] Reason for Visit * Reason Comments Follow-up Encounter Details Date Type Department Care Team (Late st Contact Info) Description 03/10/2014 1:00 PM EST Office Visit [place]ology [place] [id number] Ibrahima Cohen MD [facility] [place] [address] Personal history of malignant neoplasm of breast [...] Sign Reading Time Taken Comments Blood Pressure 140/65 03/10/2014 1:10 PM EST Pulse 66 03/10/2014 1:10 PM EST Temperature 37 ??C (98.6 ??F) 03/10/2014 1:10 PM EST Respiratory Rate 20 03/10/2014 1:10 PM EST Oxygen Saturation 98% 03/10/2014 1:10 PM EST Inhaled Oxygen Concentration - - Weight 86.4 kg (190 lb 7.6 oz) 03/10/2014 1:10 P M EST Height 161 cm (5' 3.39) 03/10/2014 1:10 PM EST Body Mass Index 33.33 03/10/2014 1:10 PM EST documented in this encounter Progress Notes * Ibrahima Cohen MD - 03/10/2014 1:24 PM EST COPY: Kirill Saavedra M.D. Clau Alfonso M.D. Ag Trent M.D. Narda Rivera is a 63-year-old woman who returns after left breast partial mastectomy and left axillary sentinel node excision on February 22, 2014 on the supine MRI arm of trial D0928. 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 She was ER positive and HER2 negative. Two of two sentinel nodes were positive for metastases. She now returns for a check. She has no pain in her breast, she has no tenderness in her breast, she has had no fevers, sweats or chills. On physical exam there is slight erythema of the left breast that extends around the incision and extends inferiorly, there is also some ecchymosis that can be seen. Her skin is not warm to the touch, it is not tender at all, she has no evidence of drainage from her incision. I did her sentinel node excision through the breast incision. Therefore there is no evidence of a seroma or hematoma in her left axilla; she has full range of motion of her arm. Impression: I think this is just some ecchymosis appearing in the skin after her lumpectomy. She will keep an eye on this, if the erythema becomes more intense or it becomes tender or if she has fevers she will let me know and we will start her on some antibiotics and/or drain this if necessary. I gave her a copy of her pathology report and we discussed it. Based on the Z11 study no further axillary surgery is necessary. She will be treated with systemic chemotherapy by Dr. Saavedra followed by adjuvant radiation therapy by Dr. Alfonso in [facility] and then will be on anti-hormone therapy. I will plan to see her back in about 7 months with a left mammogram to serve as a new baseline. documented in this encounter Plan of Treatment Not on file documented as of this encounter Results * Mammo direct digital [...] breast documented in this encounter Care Teams Client Project Coordinator Relationship Specialty Start Date End Date Ag Trent MD [address] [place] [id number] PCP - General 11/5/14 documented as of this encounter
--- OUTSIDE RECORDS SUMMARY | 2024-02-17 16:00 | XMS_ITS | Encounter Summary ---
Author Organization Formerly [facility] Address [facility] [place] [address] Care Team Providers Care Casting Assistant Name Role Phone Ag Trent MD Primary Care Provider [phone] Encounter Details Date Type Department Care Team (Latest Contact Info) Description 02/22/2014 9:50 AM EST - 02/22/2014 11:59 PM [facility] Hospital Encounter [place] [phone] CLIN[address], DR DAVIS Cohen, Ibrahima Coleman MD [facility] [place] [address] Discharge Disposition: Home Social History Tobacco Use [...] Procedure Name Priority Date/Time Associated Diagnosis Comments NM SENTINEL NODE INJECTION BREAST WITHOUT IMAGING Routine 02/22/2014 10:29 AM EST documented in this encounter Results * NM sentinel node injection (02/22/2014 10:29 AM EST) Anatomical Region Laterality Modality Other 02/22/2014 10:2 9 AM EST Narrative 02/22/2014 10:47 AM EST Examination [place] node injection Clinical History Please inject the left breast for lymphatic mapping. Technique Technetium-99m sulfur colloid was administered in divided doses totaling 0.7 mCi in the left breast. Comparison None. Findings No imaging was performed. The patient left the department in good condition. Impression Scott Bar node injection performed. Procedure Note Renan Rivero MD - 02/22/2014 Examination Scott [place] node injection Clinical History Please inject the left breast for lymphatic mapping. Technique Technetium-99m sulfur colloid was administered in divided doses totaling0.7 mCi in the left breast. Comparison None. Findings No imaging was performed. The patient left the department in goodcondition. Impression Scott Bar node injection performed. Ibrahima Cohen MD IMG NM ORDERABLES documented in this encounter Visit Diagnoses Not on filedocumented in this encounter Care Teams Casting Assistant Relationship Specialty Start Date End Date Ag Trent MD [address] [place] [address] PCP - General 02/02/14 documented as of this encounter
--- OUTSIDE RECORDS SUMMARY | 2024-02-17 16:00 | XMS_ITS | Encounter Summary ---
Author Organization [facility] Address [facility] [place] [address] Care Team Providers Care Product Safety Lead Name Role Phone Ag Trent MD Primary Care Provider [phone] Reason for Visit * Reason Onset Date Comments Other 03/03/2014 redness Encounter Details Date Type Department Care Team (Late st Contact Info) Description 03/03/2014 Telephone [place] [phone] Lanie Rai, RN Other (redness) Social History Tobacco Use Types Packs/Day Years [...] Telephone Encounter - Lanie Rai, RN - 03/03/2014 4:28 PM EST Narda called the clinic today with concerns of redness around her nipple. She is s/p MASTECTOMY PARTIAL BIOPSY OR EXCISION OF LYMPH NODE(S), OPEN, DEEP AXILLARY NODE(S) SENTINEL NODE INJECTION MODIFIER SENTINEL NODE EXCISION with Dr. Cohen on 02/22/14. She noticed the redness a couple of days ago. She reports it is tender to touch and has a different texture to it. She denies fever, chills, or n/v. She otherwise feels ok. Suggested she have it looked at as it may be cellulitis. She lives a distance away and would prefer to see her PCP. Called Dr. Trent's office and his nurse will send Dr. Trent a message to see if they can see her today or tomorrow morning. Suggested she could also go to her local ED, but she would have to pay out of pocket and prefers not to do this. Will follow up with her tomorrow (friday) morning. documented in this encounter Plan of Treatment Not on file documented as of this encounter Visit Diagnoses Not on filedocumented in this encounter Care Teams Product Safety Lead Relationship Specialty Start Date End Date Ag Trent MD [address] [place] [address] PCP - General 02/02/14 documented as of this encounter
--- OUTSIDE RECORDS SUMMARY | 2024-02-17 16:00 | XMS_ITS | Encounter Summary ---
Author Organization [facility] Address [facility] [place] [address] Care Team Providers Care Tempering Machine Operator Name Role Phone Ag Trent MD Primary Care Provider [phone] Encounter Details Date Type Department Care Team (Latest Contact Info) Description 02/08/2014 11:25 AM EST Hospital Encounter XRay at [address] [place] [address] Invasive ductal carcinoma of breast, left Social History Tobacco Use Types Packs/Day Years Used Date Smoking Tobacco: Never Assessed Sex and Gender Information Value Date Recorded Sex Assigned at Not on file Gender Identity Not on file Sexual Orientation Not on file documented as of this encounter Plan of Treatment Not on file documented as of this encounter Procedures Procedure Name Priority Date/Time Associated Diagnosis Comments XR CHEST PA AND LATERAL Routine 02/08/2014 11:31 AM EST Invasive ductal carcinoma of breast, left documented in this encounter Results * XR chest routine PA & lateral [...] abnormality. Ibrahima Cohen MD IMG DX ORDERABLES documented in this encounter Visit Diagnoses Diagnosis Invasive ductal carcinoma of breast, left documented in this encounter Care Teams Tempering Machine Operator Relationship Specialty Start Date End Date Ag Trent MD [address] [place] [address] PCP - General 02/02/14 documented as of this encounter
--- OUTSIDE RECORDS SUMMARY | 2024-02-17 16:00 | XMS_ITS | Encounter Summary ---
Author Organization [facility] Address [facility] [place] [address] Care Team Providers Care Business Office Representative Name Role Phone Ag Trent MD Primary Care Provider [phone] Reason for Visit * Reason Comments Breast Cancer Encounter Details Date Type Department Care Team (Late st Contact Info) Description 03/08/2014 8:30 AM EST Office Visit Hematology Oncology at [address] [address] Kirill Saavedra MD [facility] DR HEMATOLOGY [place] [address] Malignant neoplasm of left female breast (BREAST [...] Sign Reading Time Taken Comments Blood Pressure 123/66 03/08/2014 8:16 AM EST Pulse 68 03/08/2014 8:16 AM EST Temperature 36.8 ??C (98.2 ??F) 03/08/2014 8:16 AM ES T Respiratory Rate 18 03/08/2014 8:16 AM EST Oxygen Saturation 98% 03/08/2014 8:16 AM EST Inhaled Oxygen Concentration - - Weight 87.4 kg (192 lb 9.6 oz) 03/08/2014 8:16 A M EST Height 160 cm (5' 2.99) 03/08/2014 8:16 AM EST Body Mass Index 34.13 03/08/2014 8:16 AM EST documented in this encounter Progress Notes * Kirill Saavedra MD - 03/08/2014 4:56 PM EST Diagnosis: 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 Subjective:I am very nervous about chemotherapy HPI: Mrs. Narda Frazier is 63 y.o. female Referred to us for consultation by Dr. Cohen on new diagnosis of breast cancer. She initially presenteda mass in her upper outer left breast with calcifications on a screening mammogram in December 2013.The main mass wasbiopsied showing infiltrating ductal andlobular carcinoma, ER positive, [id number]. MRI was then performed that showed the mass with multiple small satellites around it. Mrs. Frazier underwent left partial mastectomy and sentinel lymph node biopsy on February 23, 2014. Postoperative course was uneventful. She is in clinic today to discuss further management particularly chemotherapy PMH:Hypertension, hypercholesterolemia, hypothyroidism, osteoarthritis, history of knee replacement, multiple oral surgeries Patient Active Problem List Diagnosis ??? 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 States her mother had breast cancer at about same age as she is now and vaginal cancer. OBGYN History: menarche at age 13-1/2, menopausal since age 50, Allergies: oxycodone Medications: Reviewed Review of Systems: [...] respirations unlabored Chest Wall: Left breast is swollen, healing surgical incision in left outer quadrant, no [...] or inguinal areas. Neurologic: Normal Vitals BP 123/66 Pulse 68 Temp(Src) 36.8 ??C (98.2 ??F) (Oral) Resp 18 Ht 160 cm (5' 2.99) Wt 87.363 kg (192 lb 9.6 oz) BMI 34.13 kg/m2 SpO2 98% Karnofsky score is 90 [...] count: Mitotic count: Score = 3 Total Gem Score: Khalif Grade III: 8-9 points DCIS: [...] ER/CA/HER2: ER/CA/Her2 Comment: Please see prior biopsy [id number]. HER2 FISH will be repeated on this [...] for NARDA FRAZIER ( ) as of 03/08/2014 16:53 Ref. Range 02/08/2014 11:38 BUN Latest Range: 8-18 mg/dL 18 Creatinine Latest Range: 0.70-1.20 mg/dL 0.75 Estimated GFR Latest Range: >=60 >60 Glucose Lvl Latest Range: 60-199 mg/dL 113 Calcium Latest Range: 8.5-10.5 mg/dL 10.0 Total Protein Latest Range: 6.4-8.3 gm/dL 7.6 Albumin Latest Range: 3.2-5.2 gm/dL 4.4 Total Bilirubin Latest Range: 0.2-1.3 mg/dL 0.2 Bili, Direct Latest Range: 0.0-0.3 mg/dL 0.1 Alk Phos Latest Range: 40-104 unit/L 92 AST Latest Range: 0-30 unit/L 14 ALT Latest Range: 0-30 unit/L 14 Imagin02/08/14 Left breast MRI LEFT BREAST LESION 1: KNOWN MALIGNANCY (BIRADS [...] contrast enhancement curve analysis was performed, using Confirma software. Background enhancement pattern (first post gadolinium images): Mild (25-50% breast). Amount of fibroglandular tissue: Scattered fibroglandular tissue. Comparison studies: Mammograms dated: 02/02/14 and 01/18/14. Biopsy dated: 02/02/14. Pathology Results: Left breast invasive mammary cancer. Date of Diagnosis: 02/02/14. Axillary nodes: Visualization adequate bilaterally. Benign appearing axillary nodes: Bilaterally. 02/08/14 CXR Findings There is a sub 5 mm nodule in the right mid lung zone most likely representing a calcified granuloma. Otherwise, the lungs are clear. The cardiomediastinal silhouette and gaurav appear normal. No pleural effusion or aggressive bone lesion is seen. Incidentally noted is multilevel degenerative change in the thoracic spine. Impression No evidence of metastatic disease or other significant abnormality Assessment and Plan: Diagnosis: Left 3.5 cm [...] cancer within next 10 years by half. We talk about the risks of chemotherapy with dose dense doxorubicin and cyclophosphamide followed by weekly Taxol which include but not limited to hair loss, nausea, vomiting, fatigue, diarrhea, numbness and tingling in the extremities, low blood counts requiring transfusion, heart failure, kidney failure and . Mrs. Frazier is anxious about chemotherapy, but she is interested to proceed. She is especially concerned about hair loss. Will prescribe her a wig. Informed verbal consent was obtained. Chemotherapy was total of 4 cyclesdose dense AC with Neulasta support and 4 cycles of weekly Taxol will follow by radiation therapy and then hormonal therapy. I will obtain staging CT scan, echocardiogram and arrange MediPort placement. We'll tentatively plan to start chemotherapy in 3 weeks. Prescriptions for antiemetics will be called in. Plan: 1. CT scan c/a/p, Echocardiogram, Mediport placement 2. Next visit in 3 weeks with CBC, CMP and first cycle of dose dense AC Mrs. Frazier is accompanied by everett today. The plan was discussed with the patient in details. All questions were answered to patient's satisfaction. I would like to thank Dr. Cohen and Dr. Trent for allowing me to participate in the care of this wonderful lady * Ashley Elena RN - 03/08/2014 2:57 PM EST Patient states that she gets her prescriptions through [facility]. She provided us with contact information ([phone]) and ID #'s - RxBin: [id number], RxPCN: [id number], RxGRP: [id number], .Phone call to [employer] and spoke to bilingual call center representative whom states that patient receives her medication through [facility] ([phone]) and [employer] is her pharmacy benefit. She was able to look up coverage for the medication and they are as follows: Zofran is a Tier 2 drug (quantity limitations apply, but $0 copay), Dexamethasone is a Tier 1 drug ($0 copay) and marinol is a Tier 4 drug (mustpay 100% of cost until copay met ($320 drug copay, only about $5 has been met). Then 35-39% copay) Phone call to [facility] ([phone]) and prescriptions called into pharmacy. They 3 month supply of zofran and dexamethasone called in, one month supply of marinol called in. They states it will take 7-10 days to arrive at patient's door step. * Ashley Elena RN - 03/08/2014 8:27 AM EST MEDICAL ONCOLOGY INITIAL NURSING ASSESSMENT ADVANCE DIRECTIVES: In EDH [ ] Has documents [ ] Will bring in [ ] IF NO: Advance Directive pamphlet provided : [facility] has copy of advance directives. Will obtain copy from [facility] Referral to Care Management : PRESENTING SYSTEMS and PATHOLOGY: Found on routine mammogram REVIEW OF SYSTEMS: Prior Radiotherapy: no[ x ] Yes[ ]Site Date Facility Prior Chemotherapy: no[ x ] Yes[ ] Drug: Oncologist- LastTreatment: Balance difficulty: [ x]no [ ]yes At risk for fall: [ x] no [ ] yes If yes, actions implemented to prevent fall. Patient/family instructed to avoid independent ambulation. Use wheelchair and ask for assistance of staff while in the clinic. ADL [x ] no limits [ ] needs dressing assistance [ ] needs meal assistance Assistive device:[x ]none [ ]cane [ ]walker [ ]wheelchair [ [...] [ ] Not satisfied SOCIAL ASSESSMENT: See EDH social assessment information entered. Support Systems: Lives in [facility] with boyfriensonya rust transportation plan: [ ]private vehicle [ ] RCT needs Social Work referral [ ] Unknown at this time needs Social Work referral Barriers to treatment: Referrals/Interventions: LEARNING STYLE: Visual and verbal, wants written material and verbal discussion. TEACHING: __ NCI ???Chemotherapy and You?? and folder given __ Specific chemotherapy literature provided and reviewed with patient documented in this encounter Plan of Treatment Not on file documented as of this encounter Procedures Procedure Name Priority Date/Time Associated Diagnosis Comments CT SCAN (SCAN) 03/15/2014 12:00 AM EST LAB SCAN 03/14/2014 12:00 AM EST documented in this encounter Results * IR mediport placement or removal (03/18/2014 11:00 AM EST) Anatomical Region Laterality Modality X-Ray Angiograph y 03/18/2014 11:0 0 AM EST Impressions 03/18/2014 4:57 PM EST IMPRESSION: ??US and fluoro guided placement single lumen right IJ CT POWER port, catheter tip in the cavoatrial junction. ??Port ready for use. ? Procedure performed by ??Brittny Vaughn PA-C Attending: ??Dr. Cantor Narrative 03/18/2014 4:57 PM EST VIR PROCEDURE NOTE: ?? Procedure: ??Placement of right IJ single lumen chest port (CT POWER PORT) ? ACC#: ??[id number] Indication: ??Narda Frazier is a 63 y.o. female with left BCa s/p partial mastectomy and axillary node dissection. TECHNIQUE: ??After discussing risks (including infection, hemorrhage, occlusion), and benefits, patient consented to the procedure and conscious sedation. ??A moment of truth was performed and the patient and procedure correctly identified. ?? IR nurse performed continuous monitoring of pulse, blood pressure and oxygen saturation during the procedure. ?? After maximal sterile barrier technique preparation of the right neck and upper chest, ultrasound was used to localize the right internal jugular vein. ??1% lidocaine SQ was administered for anesthesia, and a 21 ga needle was advanced under ultrasound guidance into the IJ and a 0.018 inch wire was advanced into SVC. ??A 4 Fr introducer sheath was placed and the wire exchanged for a 0.035 inch wire. ??Lidocaine was then infiltrated in a caudal-lateral direction, and infiltrated over a 2.5 cm ??infraclavicular area for pocket creation. ? A 2 cm incision was made and, with blunt dissection, a pocket created. ??Port was attached to the catheter, placed into the pocket. ??A tunneler was then used to bring the catheter through the tunnel to the venotomy site. ??Venotomy was dilated to accommodate the peel-away sheath, and during breath-hold, the catheter advanced. ??Sheath was removed. ??Port flushed and aspirated well. ??The pocket was closed using a two layer technique with absorbable suture material (2-0 vicryl deep interrupted and 4-0 monocryl running subcuticular). Skin closed with indermil. Patient tolerated the procedure well. ??There were no immediate complications. Port loaded with heparin per protocol. ?? MEDICATIONS: ?Valium 10 mg po ?Ancef 1 gram IV ? Contrast: ??none Fluoro time: 0.1 minutes. ? Procedure Note ForMarty benson MD - 03/18/2014 VIR PROCEDURE NOTE: Procedure: Placement of right IJ single lumen chest port (CT POWER PORT) ACC#: [id number] Indication: Narda Frazier is a 63 y.o. female with left BCa s/p partial mastectomy and axillary node dissection. TECHNIQUE: After discussing risks (including infection, hemorrhage,occlusion), and benefits, patient consented to the procedure and conscious sedation.A moment of truth was performed and the patient and procedure correctly identified. IR nurse performed continuous monitoring of pulse, bloodpressure and oxygen saturation during the procedure. After maximal sterile barrier technique preparation of the right neck andupper chest, ultrasound was used to localize the right internal jugular vein.1% lidocaine SQ was administered for anesthesia, and a 21 ga needle wasadvanced under ultrasound guidance into the IJ and a 0.018 inch wire was advancedinto SVC. A 4 Fr introducer sheath was placed and the wire exchanged for a0.035 inch wire. Lidocaine was then infiltrated in a caudal-lateral direction,and infiltrated over a 2.5 cm infraclavicular area for pocket creation. A 2 cm incision was made and, with blunt dissection, a pocket created.Port was attached to the catheter, placed into the pocket. A tunneler was thenused to bring the catheter through the tunnel to the venotomy site. Venotomywas dilated to accommodate the peel-away sheath, and during breath-hold, the catheter advanced. Sheath was removed. Port flushed and aspirated well.The pocket was closed using a two layer technique with absorbable suturematerial (2-0 vicryl deep interrupted and 4-0 monocryl running subcuticular). Skinclosed with indermil. Patient tolerated the procedure well. There were noimmediate complications. Port loaded with heparin per protocol. MEDICATIONS: Valium 10 mg po Ancef 1 gram IV Contrast: none Fluoro time: 0.1 minutes. IMPRESSION IMPRESSION: US and fluoro guided placement single lumen right IJ CT POWERport, catheter tip in the cavoatrial junction. Port ready for use. Procedure performed by Brittny Vaughn PA-C Attending: Dr. Cantor Kirill Saavedra MD G IR ORDERABLES * SCAN DOC: CT SCAN (03/15/2014 12:00 AM EST) Anatomical Region Laterality Modality Other Scanning Provider MEDIA MGR SCAN EXT O RDR/RSLT * SCAN DOC: LAB (03/14/2014 12:00 AM EST) Scanning Provider MEDIA MGR SCAN EXT O RDR/RSLT documented in this encounter Visit Diagnoses Diagnosis Malignant neoplasm of left female breast (BREAST CANCER) Malignant neoplasm of breast (female), unspecified site Other specified prophylactic or treatment measure Malignant neoplasm of left female breast (BREAST CANCER) Malignant neoplasm of breast (female), unspecified site Other specified prophylactic or treatment measure documented in this encounter Care Teams Business Office Representative Relationship Specialty Start Date End Date Ag Trent MD [address] [place] [address] PCP - General 02/02/14 documented as of this encounter
--- OUTSIDE RECORDS SUMMARY | 2024-02-17 16:00 | XMS_ITS | Encounter Summary ---
Author Organization [facility] Address [facility] [place] [address] Care Team Providers Care Coal Trammer Name Role Phone Latoya Quintanilla MD Primary Care Provider [phone] Encounter Details Date Type Department Care Team (Late st Contact Info) Description 01/25/2014 [place] [id number] Nancy Hummel MD [facility] DR [place] [address] Abnormal mammogram, unspecified (Primary Dx) Social History Tobacco Use Types [...] and approve the above interpretation. Home phone: [phone] Film and interpretation reviewed by the attending [...] specimens obtained. ?? A 17-gauge Ultracore (US) [place] marker clip was placed. Cranio-caudal and lateral [...] biopsy specimens obtained. A 17-gauge Ultracore (US) [place] marker clip was placed. Cranio-caudal and lateral [...] images/test andapprove the above interpretation. Home phone: [phone] Film and interpretation reviewed by the attending Nancy Cam MD IMG MAMM O ORDERABLES documented in this encounter Visit Diagnoses Diagnosis Abnormal mammogram, unspecified- Primary Abnormal mammogram, unspecified documented in this encounter Care Teams Coal Trammer Relationship Specialty Start Date End Date Latoya Quintanilla MD [address] [place] [id number] PCP - General 02/20/10 02/01/14 documented as of this encounter
--- OUTSIDE RECORDS SUMMARY | 2024-02-17 16:00 | XMS_ITS | Encounter Summary ---
Author Organization [facility] Address [facility] [place] [address] Care Team Providers Care Fitter Up Name Role Phone Latoya Quintanilla MD Primary Care Provider Encounter Details Date Type Department Care Team (Latest Contact Info) Description 01/24/2014 2:00 PM EDT - 01/24/2014 11:59 PM EDT Hospital Encounter XRay at [address] [place] [address] CL[address], [address] [facility] Discharge Disposition: Home Social History Tobacco Use [...] on filedocumented in this encounter Care Teams Fitter Up Relationship Specialty Start Date End Date Latoya Quintanilla MD [address] [place] [address] PCP - General 02/20/10 02/01/14 documented as of this encounter
--- OUTSIDE RECORDS SUMMARY | 2024-02-17 16:00 | XMS_ITS | Encounter Summary ---
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 Name Role Phone Ag Trent MD Primary Care Provider [phone] Encounter Details Date Type Department Care Team (Latest Contact Info) Description 02/22/2014 10:29 AM EST - 02/22/2014 8:06 PM EST Hospital Encounter [place] [id number] Ibrahima Cohen MD [facility] [place] [address] Discharge Disposition: Home Social History Tobacco Use [...] Sign Reading Time Taken Comments Blood Pressure 146/55 02/22/2014 7:33 PM EST Pulse 74 02/22/2014 7:33 PM EST Temperature 36 ??C (96.8 ??F) 02/22/2014 6:12 PM EST Respiratory Rate 18 02/22/2014 7:33 PM EST Oxygen Saturation 95% 02/22/2014 7:33 PM EST Inhaled Oxygen Concentration - - Weight 83.9 kg (185 lb) 02/22/2014 10:42 AM EST Height 160 cm (5' 2.99) 02/22/2014 10:42 AM EST Body Mass Index 32.78 02/22/2014 10:42 AM EST documented in this encounter Discharge Instructions * Discharge Instructions* Minh Cid RN - 02/22/2014 6:27 PM EST POST ANESTHESIA INSTRUCTIONS Go home, rest, use caution on stairs. Change positions slowly. Do not smoke if you are alone. Diet light to regular as tolerated today. If nausea occurs start with clear liquids and progress slowly. No driving, operating machinery, alcoholic beverages and no important decisions for 24 hours. Monitor IV site for signs and symptoms of infection: increasing redness, swelling, foul drainage, if occurs contact M.D. Patients who have had endotrachial tubes (this tube, used by anesthesia department, is passed down your throat after you are asleep, to ensure safe air passage during your operation). A sore throat is normal due to the tube. Cold liquids or soothing lozenges will help ease the discomfort. The generalized muscle aches are due to the medication given to you just before the tube is inserted. As the medication wears off, you may develop muscle soreness, which usually goes away in 12-24 hours. * Patient Instructions* Vijay Padron - 02/22/2014 5:53 PM EST Instructions following Breast Surgery Wound Care: Keep dressing on incision for the next 2 days, then you may remove and leave open to air. You may shower tomorrow morning with the Tegaderm covering the site. Do not scrub area vigorously for the next 1 week. Do not soak incision(s) under water for the next 2 weeks (i.e. soaking in bath or swimming) as this may promote a wound infection. You may remove dressing if it becomes saturated/wet and replace with dry gauze as needed for seepage/comfort. ICE: You may apply ice to incision during the first 48 hours following surgery to help limit swelling, bruising, and discomfort. You may also find wearing a bra for the first two days following surgery will help with discomfort, although this is not absolutely necessary. Your stitches will dissolve and do not need to be removed. Activity: As tolerated by your comfort level. Call Doctor for: Please call if you notice worsening redness or drainage from incision(s) lasting longer than 5 days after your surgery, any foul-smelling drainage from the incision, pain not controlled by pain medications, persistent nausea and vomiting, or for any fevers greater than 101.3 F. The number for questions is [phone] before 5 PM week. Pain Medication: No driving for 8 hours after any dose of opioid pain medication if one was prescribed for you. You may use ibuprofen (motrin, advil) in addition to this medication if your pain is not totally controlled by the opioid. Follow-up: Follow-up appointment will be scheduled with in 1-2 weeks. Scheduled Appointments: The following appointment with Dr. Cohen has been scheduled on your behalf:Future Appointments Date Time Provider Department Center 03/10/2014 4:10 PM Ibrahima Cohen MD [facility] 03/14/2014 8:00 AM Michael Barton MD [place] [facility]/Onc [facility] 03/14/2014 9:[address] [place] [facility] Rad/Onc [facility] 03/14/2014 10:00 AM Clau Alfonso MD [facility] Rad/Onc [facility] Please call [phone] (clinic number) if any changes need to be made to your appointment time. documented in this encounter Medications at Time [...] as of this encounter Progress Notes * Minh Cid RN - 02/22/2014 8:00 PM EST Pt got out of bed and ambulated to the bathroom with one assist and voided. All agree with dc home documented in this encounter H&P Notes * Ibrahima Cohen MD - 02/22/2014 10:35 AM EST I examined and marked this patient today and she is ready for surgery. I injected Tc sulfa colloid in her left breast over the site if her cancer. I placed fiducials on her breast for our supine mri study documented in this encounter Miscellaneous Notes * Op Note - Ibrahima Cohen MD - 02/22/2014 5:54 PM EST [facility] [place] Patient Name: Narda Rivera : [id number] MR#: [id number] Case Date: 02/22/2014 Surgeon: Surgeon(s) and Role: * Ibrahima Cohen MD - Primary * Vijay Padron MD Preoperative diagnosis: BREAST CANCER Postoperative diagnosis: BREAST CANCER Procedure(s): MASTECTOMY PARTIAL BIOPSY OR EXCISION OF LYMPH NODE(S), OPEN, DEEP AXILLARY NODE(S) SENTINEL NODE INJECTION MODIFIER SENTINEL NODE EXCISION General Estimated Blood Loss: 30 ml Specimens removed during surgery: left breast partial mastectomy and sentinel node and non-sentinelnode Surgical Closure: Primary Closure - closure of ALL tissue levels during the original surgery regardless of wires, wickes, drains, or other devices extruding through the incision Indications for Surgery: Narda Rivera is a 63-year-old woman with a biopsy-proven cancer in her upper outer left breast. She desired breast conservation. She was part of our prospective study, [id number]. She randomized to the arm that was localized by supine MRI guidance. Details of the Procedure: Prior to the surgery, I injected technetium sulfur colloid in her left breast over the site of her cancer. She had a supine MRI prior to surgery. She is brought into the Operating Room where general anesthesia was administered. She was given preoperative antibiotics. We then used the optical scanner and scanned her breast digitally into the computer. The Visualtising Team then transformed the supine MRI image into the scanned-in breast image. It localized the tumor in the lateral superior breast. It localized the center of the tumor to about 2:30, 8 cm from the nipple. We also used an ultrasound to identify the tumor and with the combination of these modalities then marked on the surface of the skin where we felt the tumor was. We then anesthetized the skin and made a curvilinear incision over the center of the tumor. We then dissected under the skin medially and laterally knowing that the tumor was about 2 cm down, leaving about 1 cm of tissue underneath the skin. We then dissected down through the breast tissue defining the tissue that was to be removed based on the preoperative markings we made on the surface of the skin. We resected the tumor leaving about 1 cm of breast tissue on the chest wall underneath our dissection. The specimen was then water displaced. It displaced 80 mL. Specimen was then scanned with the optical scanner to determine its volume. It was then inked with six different colors of ink and then was sent to Radiology where a specimen mammogram showed that the mammographic density was contained nicely in the center of the specimen. The specimen was then sent to Pathology. We obtained meticulous hemostasis in the wound. We then identified the sentinel node. We did get a peak of uptake in the left axilla. I felt that we could probably access this node with the least morbidity for her by going through the incision that we made in the upper outer breast. Therefore, we did this; and we dissected through the axillary fascia, identified the sentinel node, and excised it. The ex-vivo count on this node was 2001. A little bit of michelle tissue came out with it and did not have any appreciable radioactivity. This was sent to Pathology as nonsentinel node. The remaining count in the axilla was 72. The sentinel node was sent to Pathology. We obtained meticulous hemostasis in the axilla. I left 10 mL of Marcaine/lidocaine solution in the wound. Closed the deep dermis with interrupted 3-0 Vicryl, closed the skin with 4-0 Monocryl. Gauze and Tegaderm were placed. Patient tolerated the operation well. Attestation: Case Date: 02/22/2014 I performed this operation with the assistance of dr vijay COHEN MD 02/22/2014 documented in this encounter Plan of Treatment Not on file documented as of this encounter Procedures Procedure Name Priority Date/Time Associated Diagnosis Comments ECG SCAN 02/23/2014 12:00 AM EST SPECIMEN TO PATHOLOGY Routine 02/22/2014 5:33 PM EST SPECIMEN TO PATHOLOGY Routine 02/22/2014 5:33 PM EST MOLECULAR GENETICS REPORT Routine 02/22/2014 4:57 PM EST SURGICAL PATHOLOGY REPORT Routine 02/22/2014 4:57 PM EST SPECIMEN TO PATHOLOGY Routine 02/22/2014 4:57 PM EST MAMMO BREAST US LIMITED Routine 02/22/2014 4:47 PM EST MODIFIER SENTINEL NODE EXCISION 02/22/2014 1:58 PM EST BREAST CANCER SENTINEL NODE INJECTION (WRVU 0.65) 02/22/2014 1:58 PM EST BREAST CANCER BIOPSY OR EXCISION OF LYMPH NODE(S), OPEN, DEEP AXILLARY NODE(S) (WRVU 6.43) 02/22/2014 1:58 PM EST BREAST CANCER MASTECTOMY PARTIAL (WRVU 10.13) 02/22/2014 1:58 PM EST BREAST CANCER RESEARCH MRI AIC 60 BREAST UNILATERAL Routine 02/22/2014 12:22 PM EST documented in this encounter Results * SCAN DOC: ECG (02/23/2014 12:00 AM EST) Scanning Provider MEDIA MGR SCAN EXT O RDR/RSLT * Specimen to Pathology (surgical or derm) (02/22/2014 5:33 PM EST) AP Specimen 02/22/2014 5:33 PM EST 02/22/2014 5:33 PM EST Narrative MARI URIBE - 02/22/2014 5:33 PM EST Specimen requisition ordered. ??Separate Pathology report to follow Ibrahima Cohen MD PATHOLOGY/CYTOLOGY O ALETHEA MARI URIBE * Specimen to Pathology (surgical or derm) (02/22/2014 5:33 PM EST) AP Specimen 02/22/2014 5:33 PM EST 02/22/2014 5:33 PM EST Narrative MARI URIBE - 02/22/2014 5:33 PM EST Specimen requisition ordered. ??Separate Pathology report to follow Ibrahima Cohen MD PATHOLOGY/CYTOLOGY Ramos CLAIRE MARI URIBE * Molecular Genetics Report (02/22/2014 4:57 PM EST) Molecular Report ? [facility] ? Provider: ?? IBRAHIMA COHEN ?Pt. Name: ?? NARDA RIVERA ? Acc #: ?[id number] ?Pt. ? Col Date: ?? 02/22/2014 ?/Sex: ?1950,(63 years),Female ? Rec Date: ?? 02/22/2014 ?LOC: ?SDP ? MOLECULAR GENETIC STUDIES ? ---REPORT OF DNA ANALYSIS--- ? TEST: ??HER2(ERBB2)FISH, Breast ? METHOD: ??Fluorescence in situ hybridization (FISH) with chromosome 17 ? centromere (17p11.1-q11.1) probe and a locus specific probe for the HER2 ? gene locus (17q11.2-q12). ? SAMPLE ANALYZED: A4-4 ? RESULT: ?NEGATIVE FOR HER2/DEL AMPLIFICATION ?TOTAL # SIGNALS/TOTAL # NUCLEI COUNTED FOR HER2 PROBE = 108 ?TOTAL # SIGNALS/TOTAL # NUCLEI COUNTED FOR CEP-17 PROBE = 94 ?HER2 TO CEP-17 RATIO = 1.1 ? (NORMAL RANGE <2.0) ?TOTAL # NUCLEI COUNTED = 40 ? Interpretation: ??Paraffin-embedde d tissue sections were submitted for ? HER2(ERBB2)gene amplification analysis by FISH. ??Direct analysis was ? performed using the [employer] Kit. ??Slide adequacy and signal enumeration ? [...] factor receptor 2 testing in breast cancer: [place] Society of Clinical ? Oncology/College of [place] Pathologists clinical practice guideline ? update. J Clin Oncol. ? 2012Jan 29. ? Reviewed by: ? Radha Walton MD ? Business Continuity Planning Director, Molecular Pathology ? [facility] ? Provider: ?? IBRAHIMA COHEN ?Pt. Name: ?? NARDA RIVERA ? Acc #: ?[id number] ?Pt. ? Col Date: ?? 02/22/2014 ?/Sex: ?1950,(63 years),Female ? Rec Date: ?? 02/22/2014 ?LOC: ?SDP ? MOLECULAR GENETIC STUDIES ? _ ? Verified date: ??03/09/14 ??SFA ? Verified by: ?Radha Walton MD ? (Electronic Signature) MARI URIBE 02/22/2014 4:57 PM EST Ibrahima Cohen MD PATHOLOGY/CYTOLOGY O RDERAORION MARI URIBE * Surgical Pathology Report (02/22/2014 4:57 PM EST) Final Diagnosis 00- [id number] ? Location: SDP The signing pathologist has (i) examined the relevant preparation(s) for the specimen(s) and (ii) rendered or confirmed the diagnosis(es). . ? Pathology Molecular Genetics Report Results TEST: ??HER2(ERBB2)FISH, Breast METHOD: ??Fluorescence in situ hybridization (FISH) with chromosome 17 centromere (17p11.1-q11.1) probe and a locus specific probe for the HER2 gene locus (17q11.2- q12). SAMPLE ANALYZED: A4-4 RESULT: ?NEGATIVE FOR HER2/DEL AMPLIFICATION ? TOTAL # SIGNALS/TOTAL # NUCLEI COUNTED FOR HER2 PROBE = 108 ? TOTAL # SIGNALS/TOTAL # NUCLEI COUNTED FOR CEP-17 PROBE = 94 ? HER2 TO CEP-17 RATIO = 1.1 ? (NORMAL RANGE <2.0) ? TOTAL # NUCLEI COUNTED = 40 Interpretation: ??Paraffin-embedded tissue sections were submitted for HER2(ERBB2)gene amplification analysis by FISH. ??Direct analysis was performed using the [employer] Kit. ??Slide adequacy and signal enumeration were [...] factor receptor 2 testing in breast cancer: [place] Society of Clinical Oncology/College of [place] Pathologists clinical practice guideline update. J Clin Oncol. 2013 Jan 29. Reviewed by: Radha Walton MD Business Continuity Planning Director, Molecular Pathology _ Verified date: ??03/09/14 ??SFA Verified by: ?Anton LANGSTON, Radha Coleman ?(Electronic Signature) ?Pathology Surgical Pathology Final Report Clinical Information Specimen Submitted: A - Left breast lumpectomy B - Left axillary sentinel node C - Non sentinel node left Clinical History: Breast cancer left . Clinical Information Clinical Diagnosis: Same Gross Description A - Labeled/Fixative: Left breast lumpectomy, fresh. SPECIMEN DESCRIPTION Resection Specimen: Intact lumpectomy specimen Qty/Size/Weight: Single, 8.5 x 7.0 x 2.2 cm, 76 g. Radiograph: A specimen radiograph is reviewed and the patient's electronic medical record and displays an area of increased density with a possible biopsy site marker clip. ??No needle localization wire is present. Specimen Description: According to the established protocol the ink designations are red (medial), yellow (lateral), orange (cranial), green (caudal), black (deep) and blue (superficial). Tissue Sections: The specimen is serially sectioned perpendicular to the long axis from lateral-yellow to medial-red into IX slices, each averaging 0.9 cm in thickness. LESION Description: Firm mass with ill-defined margins Size: 3.5 cm Location: Tissue slices III-. Nearest Margin: 0.5 cm to the green in tissue site IV. Other Margins: Possible 0.3 cm satellite nodule in slice 0.1 cm to green margin. All other margins are greater than 0.7 cm. OTHER Parenchyma: Approximately 80 percent rubbery seay-white fibrous tissue intermixed with doll yellow lobular fat. Wire/Clip: No needle localization wire is present. SECTIONS/PROCESSING: (1) perpendicular section of tissue slice I; (2) sales representative health insurance section of tissue slice II with black margin; (3) tissue slice IV including lesion and nearest caudal margin; (04) section of lesion and nearest deep margin tissue slice IV; (5) cranial margin tissue slice IV; (6) lesion and superficial margin, tissue slice IV; (7) section of lesion in tissue slice V; (8) sales representative health insurance section of tissue slice VII; (9) particular sections of tissue slice IX; Additional sections with neareast black and green margins: (10) slice III; (11-12) slice IV; (13) slice V; (14-15) slice possible additional satellite nodules near green margin (R15) Ischemic Time: Not provided. B - Labeled/Fixative: Left axillary sentinel node, fresh. Quantity/Size: Multiple, 3.0 x 2.8 x 1.0 cm. Tissue Description: Yellow, lobular adipose tissue. Sectioning reveals two lymph nodes, the largest 2.2 cm. Sections/Processing: (1) smaller lymph node, trisected; (2-5) the largest lymph node, serially sectioned perpindicular to long axis. (R5) C - Labeled/Fixative: Non-sentinel node left, fresh. Quantity/Size: Multiple, 3.0 x 2.8 x 1.3 cm. Tissue Description: Yellow, lobular adipose tissue. Sectioning reveals no definitive lymph nodes. Sections/Processing: Price Checker sections of the more fibrous tissue are submitted. ??(R1) ??ejr Microscopic Description Immunohistochemistry Studies: Formalin-fixed, paraffin-embedded tissue sections are studied using the B-SA system technique with appropriate positive and negative controls. ?These IHC studies provide the pathologist with adjunctive diagnostic information. Antibody specificity has been verified by testing antibodies on a series of in-house tissues with known immunohistochemical performance characteristics. The clinical interpretation of any antibody positive staining or its absence is evaluated within the context of clinical presentation, morphology, histopathological criteria and other diagnostic tests. . Microscopic Description Block ? Antibody ?Result (Positive/Negative) A3 ? E-cadherin ? Positive Diagnosis A - Left breast, lumpectomy: ?1. Invasive ductal carcinoma with lobular features (see Synoptic Report and Comment) ?2. Ductal carcinoma in-situ ?3. Sclerosing papillary lesions ?4. Sclerosing adenosis, usual ductal hyperplasia, apocrine metaplasia, ? and cysts ?5. Biopsy site changes B - Left axillary sentinel lymph node, excision: ?Two lymph nodes positive for metastatic carcinoma (2/2) C - Left non-sentinel lymph node, excision: ?Benign breast tissue; lymph node tissue not present Synoptic Report HISTOLOGIC TYPE: ? Invasive ductal carcinoma with lobular features SIZE OF INVASIVE COMPONENT: ? Greatest dimension: ?? 3.5 ??cm HISTOLOGIC GRADE: ? Tubule formation: ?Tubule formation: Score = 3 ? Nuclear pleomorphism: ?Nuclear pleomorphism: Score = 2 ? Mitotic count: ?Mitotic count: Score = 3 ? Total Khalif Score: ?Aurora Grade III: ??8-9 points DCIS: ? Ductal Carcinoma in Situ Present ? MAJOR/MINOR Component: ??Minor ? Nuclear Grade: High ? Cribriform ? Necrosis Present, focal MARGINS INVASIVE: ? Margins Negative ? Superfical Margin: ??0.7 ??cm to margin ? Deep Margin: ??<0.1 ??cm to margin (A2) ? Caudal Margin: ??0.45 ??cm to margin MARGINS DCIS: ? Margins Negative ? Deep Margin: ??0.3 ??cm to margin VENOUS/LYMPHATIC (LARGE/SMALL VESSEL) INVASION (V/L): ? Present (extensive) SKIN: ? Skin is not present NIPPLE: ? Nipple not present. SKELETAL MUSCLE: ? No skeletal muscle present. LYMPH NODES (LN): ? LN examined: ??2 ? LN w/ macrometastasis (>0.2 cm): ??1 ? LN w/ micrometastasis (>0.2 mm and/or > 200 cells, but < 2.0 mm): ??1 ? LN w/ isolated tumor cells (</equal to 0.2 mm and </equal to 200 cells): ??0 ? Size of largest metastasis: ??0.6-0.8 ??cm (estimate based on slide reconstruction) MICROCALCIFICATIONS: . Diagnosis ? Present in nonneoplastic tissue ER/NV/HER2: ? ER/NV/Her2 Comment: ??Please see prior biopsy [id number]. HER2 FISH will be ?repeated on this sample. PRIMARY TUMOR (pT): ? pT2: ??Tumor more than 2.0 cm but not more than 5.0 cm in greatest dimension REGIONAL LYMPH NODES (pN): ? pN1a: ??Metastasis in 1 to 3 axillary lymph nodes TMRBLKI: ??A3, A4, A7 02/28/14 KIM 02/28/14 Verified by: ? Abbie LANGSTON, Wicho Hassan ?Pathologist ?(Electronic Signature) The attending pathologist whose signature appears on this report has reviewed all diagnostic slides and has edited the gross and/or microscopic portion of the report in rendering the final pathologic diagnosis. Comment Multiple satellite foci of invasive carcinoma ranging in size from <0.1 cm to 0.4 cm, and which are associated with lymphovascular invasion, are present adjacent to the main 3.5 cm mass. 03/09/2014 2:27 PM [facility] SENTINEL LYMPH NODE / Unknown 02/22/2014 4:57 PM EST 02/22/2014 4:57 PM EST SENTINEL LYMPH NODE / Unknown 02/22/2014 4:57 PM EST 02/22/2014 4:57 PM EST SENTINEL LYMPH NODE / Unknown 02/22/2014 4:57 PM EST 02/22/2014 4:57 PM EST Ibrahima Cohen MD PATHOLOGY/CYTOLOGY O ALETHEA Performing Organization Address City/[facility]/ZIP Co de Phone Number MARI CLAROSMISAEL [facility] [place] [address] * Specimen to Pathology (surgical or derm) (02/22/2014 4:57 PM EST) AP Specimen 02/22/2014 4:57 PM EST 02/22/2014 4:57 PM EST Narrative ANTONIAERIS CLAROSJONNYJULITO - 02/22/2014 4:57 PM EST Specimen requisition ordered. ??Separate Pathology report to follow Ibrahima Cohen MD PATHOLOGY/CYTOLOGY O ALETHEA Performing Organization Address [facility] Co de Phone Number MARI URIBE * Mammo breast US unilateral bilateral (02/22/2014 4:47 PM EST) Anatomical Region Laterality Modality Breast N/A Mammography 02/22/2014 4:47 PM EST Impressions 02/23/2014 11:54 AM EST IMPRESSION: ?? KNOWN MALIGNANCY (BIRADS Category 6) in the upper, outer Left breast localized intraoperatively for subsequent excision. Narrative 02/23/2014 11:54 AM EST INTRAOPERATIVE LEFT BREAST ULTRASOUND ON 02/22/14: ?? CLINICAL INDICATION: Patient on supine MRI study randomized to localization using supine MRI. Lesion was unsuccessfully localized by the experimental technique. ?? FINDINGS: Ultrasound performed intraoperatively demonstrates the known malignancy in the Left breast. This is seen as a hypoechoic mass with indistinct margins and non-parallel orientation. The mass was located at 0200, 9cm from the nipple and differences in position between the ultrasound guided needle biopsy of 02/02/14 and today's scan reflects positional differences between the two exams (patient in the operative position today, supine without obliquity). The skin surface over the lesion was identified and measured to be approximately 1cm deep to the skin surface. ?? Procedure Note Hoang Gonzalez MD - 02/23/2014 INTRAOPERATIVE LEFT BREAST ULTRASOUND ON 02/22/14: CLINICAL INDICATION: Patient on supine MRI study randomized tolocalization using supine MRI. Lesion was unsuccessfully localized by the experimental technique. FINDINGS: Ultrasound performed intraoperatively demonstrates the known malignancy in the Left breast. This is seen as a hypoechoic mass with indistinct margins and non-parallel orientation. The mass was located [id number], 9cm from the nipple and differences in position between the ultrasoundguided needle biopsy of 02/02/14 and today's scan reflects positional differences between the two exams (patient in the operative position today, supinewithout obliquity). The skin surface over the lesion was identified and measuredto be approximately 1cm deep to the skin surface. IMPRESSION IMPRESSION: KNOWN MALIGNANCY (BIRADS Category 6) in the upper, outer Left breastlocalized intraoperatively for subsequent excision. Ibrahima Cohen MD IMG MAMMO ORDERABLES * Research- MRI aic-60 breast unilateral (02/22/2014 12:22 PM EST) Anatomical Region Laterality Modality Breast Other 02/22/2014 12:2 2 PM EST Impressions 04/26/2014 9:42 AM EST IMPRESSION: Supine MRI pre-lumpectomy. Please see prone protocol MRI for further characterization. Narrative 04/26/2014 9:42 AM EST EXAMINATION: RESEARCH AIC-60 MRI BREAST UNILATERAL CLINICAL HISTORY: [id number] supine mri study STYO. TECHNIQUE: Pre and post gadolinium research protocol supraclinoid MRI of the left breast. COMPARISON: MRI breast of 02/08/2014. Ultrasound breast 02/02/2014. FINDINGS: The left breast mass, attendant artifact, 12:00, 8 cm from the nipple is again appreciated. Fiducial markers are noted on the breast. Procedure Note Ag Calderon MD - 04/26/2014 EXAMINATION: RESEARCH AIC-60 MRI BREAST UNILATERAL CLINICAL HISTORY: [id number] supine mri study STYO. TECHNIQUE: Pre and post gadolinium research protocol supraclinoid MRI ofthe left breast. COMPARISON: MRI breast of 02/08/2014. Ultrasound breast 02/02/2014. FINDINGS: The left breast mass, attendant artifact, 12:00, 8 cm from the nipple isagain appreciated. Fiducial markers are noted on the breast. IMPRESSION IMPRESSION: Supine MRI pre-lumpectomy. Please see prone protocol MRI for further characterization. Ibrahima Cohen MD IMG RESEARCH ORDERAB LES documented in this encounter Visit Diagnoses Not on filedocumented in this encounter Administered Medications Inactive Administered Medications - up to 3 most recent administrations Medication Order MAR Action Action Date Dose Rate Site gadopentetate dimeglumine (MAGNEVIST) 10 mmol/20 mL (469.01 mg/mL) injection 18 mL 18 mL, Intravenous, ONCE PRN, 1 dose, Starting on Fri02/22/14 at 1227, Until Fri02/22/14 at 1210, Per Protocol, Routine Given 02/22/2014 12:10 PM EST 18 mLs scopolamine (TRANSDERM-SCOP) 1.5 mg patch 1 dose, Starting on Fri02/22/14 at 1301, Until Fri02/22/14 at 1315, KRYSTAL JOHNSON: cabinet override Given 02/22/2014 1:15 PM EST 1.5 patches documented in this encounter Active and Recently Administered Medications Times are shown in EST. PRN Medication Order 02/20/2014 02/21/2014 02/22/2014 BUpivacaine (PF) (MARCAINE) 0.5 % (5 mg/mL) injection (CANCELED) ONCE PRN, Starting on Fri02/22/14 at 1730, Until Fri02/22/14 at 2000, Intra-Operative (Intra-Procedure), Routine 1730 (Given - Provid er: Ibrahima Cohen MD - Comment: Mixed equally with 1% Lidocaine) gadopentetate dimeglumine (MAGNEVIST) 10 mmol/20 mL (469.01 mg/mL) injection 18 mL (COMPLETED) 18 mL, Intravenous, ONCE PRN, 1 dose, Starting on Fri02/22/14 at 1227, Until Fri02/22/14 at 1210, Per Protocol, Routine 1210 (Given - Provid er: Alexis Bedoya) lidocaine (PF) (XYLOCAINE) 10 mg/mL (1 %) injection (CANCELED) ONCE PRN, Starting on Fri02/22/14 at 1730, Until Fri02/22/14 at 2000, Intra-Operative (Intra-Procedure), Routine 1730 (Given - Provid er: Ibrahima Cohen MD - Comment: Mixes equally with Marcaine 0.5%) No Frequency Medication Order 02/20/2014 02/21/2014 02/22/2014 scopolamine (TRANSDERM-SCOP) 1.5 mg patch (COMPLETED) 1 dose, Starting on Fri02/22/14 at 1301, Until Fri02/22/14 at 1315, KRYSTAL JOHNSON: cabinet override 1315 (Given - Provid er: Krystal Johnson RN) documented in this encounter Care Teams Drill Press Set Up Operator Radial Relationship Specialty Start Date End Date Ag Trent MD [address] [place] [address] PCP - General 02/02/14 documented as of this encounter
--- OUTSIDE RECORDS SUMMARY | 2024-02-17 16:00 | XMS_ITS | Encounter Summary ---
Author Organization [facility] Address [facility] [place] [address] Care Team Providers Care Bulk Plant Manager Name Role Phone Ag Trent MD Primary Care Provider [phone] Encounter Details Date Type Department Care Team (Late st Contact Info) Description 02/03/2014 Telephone Hematology [place] [phone] Anita Garcia RN Social History Tobacco Use Types Packs/Day Years Used Date Smoking Tobacco: Never Assessed Sex and Gender Information Value Date Recorded Sex Assigned at Not on file Gender Identity Not on file Sexual Orientation Not on file documented as of this encounter Miscellaneous Notes * Telephone Encounter - Anita Garcia RN - 02/03/2014 5:35 PM EST Narda Rivera is a 63 y.o. 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 Contacted patient after Dr. Mcghee informed her that her breast biopsy results indicated she has invasive mammary carcinoma. Pt. states she is anxious and very depressed about the diagnosis. She has a friend who she has beenseeing who will be with her tomorrow and is supportive. She is anxious to meet with a breast surgeon to determine a treatment plan. We talked about the possibly options for tx; she is interested in lumpectomy and radiation if recommended. Support provided. FAMILY HX Adopted. States her mother had breast cancer at about same age as she is now. Appointments for breast MRI, chest xray, and surgical consult with a breast surgeon will be arranged for pt. Patient was told she would receive information about her diagnosis and it's treatment. She had many questions r/t pain after surgery (can not take narcotics), anesthesia (experience withN/V from anesthesia), timeline of tx, side effects of radiation. Addressed her questions and encouraged her to contact me with any additional questions or concerns. Contact information provided for CPB and this sql report writer. documented in this encounter Plan of Treatment Not on file documented as of this encounter Visit Diagnoses Not on filedocumented in this encounter Care Teams Bulk Plant Manager Relationship Specialty Start Date End Date Ag Trent MD [address] [place] [address] PCP - General 02/02/14 documented as of this encounter
--- OUTSIDE RECORDS SUMMARY | 2024-02-17 16:00 | XMS_ITS | Encounter Summary ---
Author Organization [facility] Address [facility] [place] [address] Care Team Providers Care Furnace Operator And Tender Name Role Phone Ag Trent MD Primary Care Provider [phone] Encounter Details Date Type Department Care Team (Latest Contact Info) Description 02/22/2014 9:48 AM EST - 02/22/2014 11:59 PM [facility] Hospital Encounter [place] [phone] Ibrahima Cohen MD [facility] [place] [address] Discharge Disposition: Home Social History Tobacco Use [...] filedocumented in this encounter Care Teams Furnace Operator And Tender Relationship Specialty Start Date End Date Ag Trent MD [address] [place] [address] PCP - General 02/02/14 documented as of this encounter
--- OUTSIDE RECORDS SUMMARY | 2024-02-17 16:00 | XMS_ITS | Encounter Summary ---
Author Organization [facility] Address [facility] [place] [address] Care Team Providers Care Policy Analyst Name Role Phone Ag Trent MD Primary Care Provider [phone] Encounter Details Date Type Department Care Team (Late st Contact Info) Description 02/22/2014 2:00 PM EST - 02/22/2014 4:58 PM EST [place] [phone] Ibrahima Cohen MD [facility] [place] [address] MASTECTOMY PARTIAL (WRVU 10.13) Social History Tobacco Use Types Packs/Day Years [...] Sign Reading Time Taken Comments Blood Pressure 139/77 02/22/2014 10:42 AM EST Pulse 74 02/22/2014 10:42 AM EST Temperature 36.7 ??C (98.1 ??F) 02/22/2014 10:[address] Respiratory Rate 16 02/22/2014 10:42 AM EST Oxygen Saturation 98% 02/22/2014 10:42 AM EST Inhaled Oxygen Concentration - - [...] 101.3 F. The number for questions is [phone] before 5 PM week. Pain Medication: No [...] PM Ibrahima Cohen MD [place] Hem Onc [facility] 03/14/2014 8:00 AM Michael Barton MD [place] Hem/Onc [facility] 03/14/2014 9:[address] [place] [facility] Rad/Onc [facility] 03/14/2014 10:00 AM Clau Alfonso MD [facility] Rad/Onc [facility] Please call [phone] (clinic number) if any changes need to [...] Cohen MD - 02/22/2014 5:54 PM EST [facility] Operative Note Patient Name: Narda Rivera : [id number] MR#: [id number] Case Date: 02/22/2014 Surgeon: Surgeon(s) and Role: [...] her breast digitally into the computer. The [employer] Team then transformed the supine MRI image [...] PM EST 02/22/2014 5:33 PM EST Narrative ANTONIAERIS HARLANJONNYIUM - 02/22/2014 5:33 PM EST Specimen requisition ordered. ??Separate Pathology report to follow Ibrahima Cohen MD PATHOLOGY/CYTOLOGY O RDERABLES MARI URIBE * Specimen to Pathology (surgical or derm) (02/22/2014 5:33 PM EST) AP Specimen 02/22/2014 5:33 PM EST 02/22/2014 5:33 PM EST Narrative MARI URIBE - 02/22/2014 5:33 PM EST Specimen requisition ordered. ??Separate Pathology report to follow Ibrahima Cohen MD PATHOLOGY/CYTOLOGY O ALETHEA MARI URIBE * Molecular Genetics Report (02/22/2014 4:57 PM EST) Molecular Report ? [facility] ? Provider: ?? IBRAHIMA COHEN ?Pt. Name: ?? NARDA RIVERA ? Acc #: ?[id number] ?Pt. ? Col Date: ?? 02/22/2014 ?/Sex: [...] ??Direct analysis was ? performed using the [employer] Interactive Kit. ??Slide adequacy and signal enumeration ? [...] factor receptor 2 testing in breast cancer: [place] Society of Clinical ? Oncology/College of [place] Pathologists clinical practice guideline ? update. J Clin Oncol. ? 2012Jan 29. ? Reviewed by: ? Radha Walton MD ? Pipe Puller, Molecular Pathology ? [facility] ? Provider: ?? IBRAHIMA COHEN ?Pt. Name: ?? NARDA RIVERA ? Acc #: ?[id number] ?Pt. ? Col Date: ?? 02/22/2014 ?/Sex: ?1950,(63 years),Female ? Rec Date: ?? 02/22/2014 ?LOC: ?SDP ? MOLECULAR GENETIC STUDIES ? _ ? Verified date: ??03/09/14 ??SFA ? Verified by: ?Anton LANGSTON, Radha Coleman ? (Electronic Signature) MARI URIBE 02/22/2014 4:57 PM EST Ibrahima Cohen MD PATHOLOGY/CYTOLOGY O ALETHEA MARI URIBE * Surgical Pathology Report (02/22/2014 4:57 PM EST) Final Diagnosis 00- [id number] ? Location: SDP The signing pathologist has [...] FISH. ??Direct analysis was performed using the Egg[employer] Interactive Kit. ??Slide adequacy and signal enumeration were [...] factor receptor 2 testing in breast cancer: [place] Society of Clinical Oncology/College of [place] Pathologists clinical practice guideline update. J Clin Oncol. 2013 Jan 29. Reviewed by: Radha Walton MD Pipe Puller, Molecular Pathology _ Verified date: ??03/09/14 ??SFA [...] perpendicular section of tissue slice I; (2) specialty sales representative section of tissue slice II with black margin; (3) tissue slice IV including lesion and nearest caudal margin; (04) section of lesion and nearest deep margin tissue slice IV; (5) cranial margin tissue slice IV; (6) lesion and superficial margin, tissue slice IV; (7) section of lesion in tissue slice V; (8) specialty sales representative section of tissue slice VII; (9) particular [...] Sectioning reveals no definitive lymph nodes. Sections/Processing: Embossograph Operator sections of the more fibrous tissue are [...] Score = 3 ? Total Khalif Score: ?Reserve Grade III: ??8-9 points DCIS: ? Ductal [...] . Diagnosis ? Present in nonneoplastic tissue ER/CO/HER2: ? ER/CO/Her2 Comment: ??Please see prior biopsy [id number]. HER2 FISH will be ?repeated on this sample. PRIMARY TUMOR (pT): ? pT2: ??Tumor more than 2.0 cm but not more than 5.0 cm in greatest dimension REGIONAL LYMPH NODES (pN): ? pN1a: ??Metastasis in 1 to 3 axillary lymph nodes TMRBLKI: ??A3, A4, A7 02/28/14 KIM 02/28/14 Verified by: ? Wicho Leiva MD ?Pathologist ?(Electronic Signature) The attending pathologist whose [...] main 3.5 cm mass. 03/09/2014 2:27 PM EST [facility] SENTINEL LYMPH NODE / Unknown 02/22/2014 4:57 PM EST 02/22/2014 4:57 PM EST SENTINEL LYMPH NODE / Unknown 02/22/2014 4:57 PM EST 02/22/2014 4:57 PM EST SENTINEL LYMPH NODE / Unknown 02/22/2014 4:57 PM EST 02/22/2014 4:57 PM EST Ibrahima Cohen MD PATHOLOGY/CYTOLOGY O ALETHEA Performing Organization Address [facility] Phone Number MARI CLAROSMISAEL [facility] [place] [address] * Specimen to Pathology (surgical or derm) (02/22/2014 4:57 PM EST) AP Specimen 02/22/2014 4:57 PM EST 02/22/2014 4:57 PM EST Narrative MARI HARLANJONNYJULITO - 02/22/2014 4:57 PM EST Specimen requisition ordered. ??Separate Pathology report to follow Ibrahima Cohen MD PATHOLOGY/CYTOLOGY O ALETHEA Performing Organization Address [facility] Phone Number MARI URIBE * [...] and non-parallel orientation. The mass was located [id number], 9cm from the nipple and differences in [...] MAR Action Action Date Dose Rate Site BUpivacaine (PF) (MARCAINE) 0.5 % (5 mg/mL) injection ONCE PRN, Starting on Fri02/22/14 at 1730, Until Fri02/22/14 at 2000, Intra-Operative (Intra-Procedure), Routine Given 02/22/2014 5:30 PM EST 20 mg 19- Surgical Site gadopentetate dimeglumine (MAGNEVIST) 10 mmol/20 mL (469.01 mg/mL) injection 18 mL 18 mL, Intravenous, ONCE PRN, 1 dose, Starting on Fri02/22/14 at 1227, Until Fri02/22/14 at 1210, Per Protocol, Routine Given 02/22/2014 12:10 PM EST 18 mLs lidocaine (PF) (XYLOCAINE) 10 mg/mL (1 %) injection ONCE PRN, Starting on Fri02/22/14 at 1730, Until Fri02/22/14 at 2000, Intra-Operative (Intra-Procedure), Routine Given 02/22/2014 5:30 PM EST 20 mg Both Ears scopolamine (TRANSDERM-SCOP) 1.5 mg patch 1 dose, [...] RN) documented in this encounter Care Teams Policy Analyst Relationship Specialty Start Date End Date Ag Trent MD [address] [place] [address] PCP - General 02/02/14 documented as of this encounter
--- OUTSIDE RECORDS SUMMARY | 2024-02-17 16:00 | XMS_ITS | Encounter Summary ---
Author Organization [facility] Address [facility] [place] [address] Care Team Providers Care Terminal Operations Supervisor Name Role Phone Latoya Quintanilla MD Primary Care Provider [phone] Encounter Details Date Type Department Care Team (Late st Contact Info) Description 11/15/2011 [place] [phone] Hoang Gonzalez MD [facility] DR DIAGNOST[place] [address] Social History Tobacco Use Types Packs/Day Years [...] Comments FILM LIBRARY STORAGE ONLY MAMMO Routine 11/15/2011 11:00 AM EDT documented in this encounter Results * Film Library- Storage only Mammo (11/15/2011 11:00 AM EDT) Anatomical Region Laterality Modality Other 11/15/2011 11:0 0 AM EDT Narrative 01/24/2014 11:14 AM EDT This is a Non-reportable exam Procedure Note SURAJ, UNSIGNED REPORT - 01/24/2014 This is a Non-reportable exam Hoang Gonzalez MD IMG FILM LIBRARY ORD ERABLES documented in this encounter Visit Diagnoses Not on filedocumented in this encounter Care Teams Terminal Operations Supervisor Relationship Specialty Start Date End Date Latoya Quintanilla MD [address] [place] [address] PCP - General 02/20/10 02/01/14 documented as of this encounter
--- OUTSIDE RECORDS SUMMARY | 2024-02-17 16:00 | XMS_ITS | Encounter Summary ---
Author Organization [facility] Address [facility] [place] [address] Care Team Providers Care Cottonseed Meat Presser Name Role Phone Ag Trent MD Primary Care Provider [phone] Encounter Details Date Type Department Care Team (Latest Contact Info) Description 02/08/2014 8:33 AM EST - 02/08/2014 11:59 PM EST Hospital [place] [phone] CLINIC, DR DAVIS Cohen, Ibrahima Coleman MD [facility] [place] [place] [address] Invasive ductal carcinoma of breast, left Discharge [...] - Inhaled Oxygen Concentration - - Weight 88.5 kg (195 lb) 02/08/2014 10:53 AM EST Height - - Body Mass Index - - documented in this encounter Plan of Treatment Not on file documented as of this encounter Procedures Procedure Name Priority Date/Time Associated Diagnosis Comments MRI BREAST WWO CONTRAST BILAT Routine 02/08/2014 11:07 AM EST Invasive ductal carcinoma of breast, left documented in this encounter Results * MRI breast bilateral with/WO contrast (02/08/2014 [...] contrast enhancement curve analysis was performed, using Fitneta software. ?? Background enhancement pattern (first post [...] of breast, left documented in this encounter Administered Medications Inactive Administered Medications - up to 3 most recent administrations Medication Order MAR Action Action Date Dose Rate Site gadopentetate dimeglumine (MAGNEVIST) injection 18 mL 18 mL (rounded from 17.7 mL = 0.2 mL/kg/dose ? 88.5 kg), Intravenous, ONCE PRN, Per Protocol, Starting on Fri02/08/14 at 1053, 1 dose, Until Fri02/08/14 at 1053 Given 02/08/2014 10:53 AM EST 18 mLs documented in this encounter Care Teams Cottonseed Meat Presser Relationship Specialty Start Date End Date Ag Trent MD [address] [place] [address] PCP - General 02/02/14 documented as of this encounter
--- OUTSIDE RECORDS SUMMARY | 2024-02-17 16:00 | XMS_ITS | Encounter Summary ---
Author Organization [facility] Address [facility] [place] [address] Care Team Providers Care Cotton Farmworker Name Role Phone Ag Trent MD Primary Care Provider [phone] Encounter Details Date Type Department Care Team (Late st Contact Info) Description 02/11/2014 Notes [place] [address] Berkley Soto MSW Social History Tobacco Use Types Packs/Day Years Used Date Smoking Tobacco: Never Assessed Sex and Gender Information Value Date Recorded Sex Assigned at Not on file Gender Identity Not on file Sexual Orientation Not on file documented as of this encounter Progress Notes * Berkley Soto MSW - 02/11/2014 1:40 PM EST OFFICE OF CARE MANAGEMENT/CONTINUING CHUTE GREASER Reason for referral: Nrada Rivera is a 63 year old, female who was seen in the multidisciplinary breast care clinic for a surgical consult with Dr. 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 After meeting with Dr. Cohen, pt has decided to have a lumpectomy and sentinel node dissection followed by radiation therapy at the [facility]. Advance Directives: Pt believes she has completed a living will which is on file at [facility]. Pt was given the [place] AD forms so she can designate a DPOA for health care. Pt would like Enrique Giffordmichele, a friend, to make her health care decisions for her in the event she cannot make them for herself. An ACP notewas written documenting this information. Living arrangements/social supports: Pt lives alone in [place], [place]. Pt states has support from friends and is accompanied by a friend to today's appt. Insurance/Finances: Pt is retired and receives Medicare, [place] [employer] and has a Part D drug plan through [employer]. Pt states she is not concerned about finances. Tobacco/drug/alcohol history: Pt states she does not smoke or drink. Adjustment to illness/mental health concerns: Pt states she feels better after meeting with Dr. Cohen. Pt has support from friends. [facility] reviewed some of the support and services available to pt in the cancer centers. Strengths: Pt has support from her friends. Plan: Demi Estrada and I will continue to follow to assess and assist with psychosocial needs as sheprogresses through treatment. documented in this encounter Plan of Treatment Not on file documented as of this encounter Visit Diagnoses Not on filedocumented in this encounter Care Teams Cotton Farmworker Relationship Specialty Start Date End Date Ag Ternt MD [address] [place] [address] PCP - General 02/02/14 documented as of this encounter
--- OUTSIDE RECORDS SUMMARY | 2024-02-17 16:00 | XMS_ITS | Encounter Summary ---
Author Organization [facility] Address [facility] [place] [address] Care Team Providers Care Fishing Game Warden Name Role Phone Ag Trent MD Primary Care Provider [phone] Reason for Visit * Reason Comments Breast Cancer Encounter Details Date Type Department Care Team (Late st Contact Info) Description 02/10/2014 2:00 PM EST Office Visit [place] [phone] Ibrahiam Cohen MD [facility] [place] [address] Malignant neoplasm of left female breast Discharge Disposition: Home Social History Tobacco Use Types Packs/Day Years Used Date Smoking Tobacco: Never Assessed Sex and Gender Information Value Date Recorded Sex Assigned at Not on file Gender Identity Not on file Sexual Orientation Not on file documented as of this encounter Last Filed Vital Signs Vital Sign Reading Time Taken Comments Blood Pressure 138/78 02/10/2014 2:02 PM EST Pulse 72 02/10/2014 2:02 PM EST Temperature 36.7 ??C (98.1 ??F) 02/10/2014 2:02 PM ES T Respiratory Rate 20 02/10/2014 2:02 PM EST Oxygen Saturation 100% 02/10/2014 2:02 PM EST Inhaled Oxygen Concentration - - Weight 87.4 kg (192 lb 10.9 oz) 02/10/2014 2:02 PM EST Height 159 cm (5' 2.6) 02/10/2014 2:02 PM EST Body Mass Index 34.57 02/10/2014 2:02 PM EST documented in this encounter Progress Notes * Anita Garcia RN - 02/10/2014 4:00 PM EST Narda Rivera is a 63 y.o. female with left breast cancer. I met with patient and her friend, Enrique, in clinic. She verbalized understanding of the plan of care and states all her questions were answered. Patient will schedule surgery on way out (in 4L) today. Ten minutes was spent in education and providing support. Patient has our contact information. She questioned massage (goes monthly, armenian massage) after surgery. She will send us a note for clearance (for massage therapist) to allow for massage during post operative period. Dr. Cohen statesno restrictions to massage post operatively. SPECIFIC TEACHIN. Breast Cancer Treatment (Eliza Lew, 2012) was received via mail. 2. DVD from our Shared Decision-Marking Program on Early-Stage Breast Cancer was received. 3. She understands she will meet with medical (prefers [facility]) and radiation (prefers [facility])oncologists after surgery. 4. Contact phone number for questions or concerns in the immediate post- operative period. 5. Post Breast Surgery Exercises, handout created by physical therapy at [facility]. * Ibrahima Cohen MD - 02/10/2014 2:52 PM EST COPY: Ag Trent M.D. Narda Rivera is a 63-year-old woman sent for consultation by Ag Trent for newly diagnosed left breast cancer. Narda had [...] her right breast or her left breast. There is no family history of breast or ovarian cancer. Her mom was adopted so she is not really that sure about her family history. She is . Current Medications: Aspirin, hydrochlorothiazide, Synthroid and Prilosec. She has no known drug allergies. She has some adverse reaction and nausea to narcotics. Past Surgical History: Right total knee replacement and a right leg fracture. Review of Systems: Metastatic workup for breast cancer: Chest x-ray negative, LFTs normal. She has no cardiac, pulmonary or renal symptomatology. The rest of her review of systems is negative. 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 She is accompanied by her boyfriend who is a very insightful zita and asked excellent questions. She lives in [facility] near [facility]. On physical exam she is alert and oriented, in general she appears well. Pupils are equal, she is not jaundiced. Lungs are clear, heart has a regular rhythm. There are no palpable masses in the left breast or the right breast, no nipple abnormalities, there is no palpable left axillary adenopathy. She has full range of motion of the left arm, no left arm edema. There are no right breast masses, nipple abnormalities or axillary adenopathy. Abdomen is soft, she is moderately obese. She is grossly neurologically nonfocal. I reviewed her mammogram, ultrasound and MRI images personally. Impression: A 63-year-old woman with newly diagnosed, non-palpable left breast cancer. We discussed her options using the Option Grid format as being either a lumpectomy with radiation therapy or a mastectomy plus or minus reconstruction. We discussed the advantages and disadvantages of each of these approaches. She would like to proceed with breast conservation so we will plan to do a left breast lumpectomy. I recommended we do a sentinel node excision, she understands the rationale for that and requests that we proceed. I discussed with her our supine MRI study D0929. I went through the consent form with her and I answered all of her questions, she would like to be a part of that study and has signed a consent. I gave her a copy of her consent. We will schedule her surgery in the near future. documented in this encounter Plan of Treatment Not on file documented as of this encounter Visit Diagnoses Diagnosis Malignant neoplasm of left female breast Malignant neoplasm of breast (female), unspecified site documented in this encounter Care Teams Fishing Game Warden Relationship Specialty Start Date End Date Ag Trent MD [address] [place] [address] PCP - General 02/02/14 documented as of this encounter
[2024-02-17 21:53] LABS: Abs Immature Grans 0.02 10^3/uL (0.0-0.06); Absolute Basophil Count 0.03 10^3/uL (0.0-0.2); Absolute Eosinophil Count 0.25 10^3/uL (0.0-0.7); Absolute Lymphocyte Count 1.72 10^3/uL (1.2-3.4); Absolute Monocyte Count 0.48 10^3/uL (0.1-0.8); Absolute Neutrophil Count 3.71 10^3/uL (1.2-6.7); Basophils % 0.5 %; HCT 43.4 % (36.0-46.0); HGB 14.7 g/dL (11.2-15.7); Immature Grans % 0.3 %; Lymphocytes % 27.7 %; MCH 29.5 pg (27.0-33.0); MCHC 33.9 % (32.0-36.0); MCV 87 fL (80-95); Monocytes % 7.7 %; Neutrophils % 59.8 %; RBC 4.99 10^6/uL (3.93-5.22); RDW 12.5 % (11.7-14.6); RDW-SD 39.4 fL; WBC 6.21 10^3/uL (4.4-10.8)
[2024-02-17 22:13] LABS: ALT 22 U/L (14-59); AST 19 U/L (15-37); Albumin 3.3 g/dL (3.4-5.0); Alkaline Phosphatase 115 U/L (46-116); Anion Gap 10.3 mmol/L (3-11); BUN 17 mg/dL (7-18); Bilirubin, Total 0.27 mg/dL (0.2-1.0); CO2 26.7 mmol/L (21.0-32.0); CREATININE 0.6 mg/dL (0.55-1.02); Calcium 9.4 mg/dL (8.5-10.1); Chloride 106 mmol/L (98-107); Estimated GFR 93.55 (mL/min/1.73m2); Glucose 115 mg/dL (74-106); LDL CHOLESTEROL 80 mg/dL (<100); Potassium 3.9 mmol/L (3.5-5.1); Sodium 143 mmol/L (136-145); TSH 0.02 uIU/mL (0.36-3.74); Total Protein 6.5 g/dL (6.4-8.2)
[2024-02-17 22:19] LABS: Diff Comment PLT Morph Reviewed; RBC Morphology Normal
== END 2024-02-17 15:55 | disposition home or self-care (01) ==
LOC: NCHCN 15:54
PROVIDERS: PCP Family Medicine; Visit Provider Family Medicine
DX: I10 Essential (primary) hypertension (principal)
CPT/HCPCS: 80053; 83721; 84443; 85025

== ENCOUNTER → 2024-03-02 13:45 | Outpatient (BNVA) | payer MEDICARE, BC, SELFPAY | PROVIDERS: PCP Family Medicine; Visit Provider Internal Medicine Cardiovascular Disease | DX: I25.10 Atherosclerotic heart disease of native coronary artery without angina pectoris (principal) | CPT/HCPCS: 99213 ==

== ENCOUNTER 2024-05-05 01:16 | Outpatient (CLI) | payer MEDICARE, BC, SELFPAY ==
--- OUTSIDE RECORDS SUMMARY | 2024-05-05 01:50 | XMS_ITS | Clinical Summary ---
Author Organization [facility] Address [facility] [place] [address] Care Team Providers Care Elementary [employer] Reading Teacher Name Role Phone Ag Trent MD Primary Care Provider [phone] Allergies Active Allergy Reactions Criticality Noted Date [...] FIND 2 times daily. Estrogen suppressant from rush seater, takes twice a day Active clopidogrel (PLAVIX) [...] features, lymphovascular invasion present, SLN 2/2 positive, ER+/RI+, Her-2 unaplified, T2,at least N1a, Mx Treatment:s/p [...] 1966 Tetanus/Diphtheria/Pertussis Vaccines (1 - Tdap) 09/06/1967 Pneumoccocal Vaccine: 50+ (1 of 1 - PCV) 1998 Zoster vaccine (1 of 2) 1998 Advance Directive 09/06/2003 Bone Density Scan 2013 RSV Vaccine (1 - 1-dose 75+ series) 09/06/2023 Covid-19 Vaccine ( - 2023-2 5 season) 2023 Influenza (Flu) [...] Center. BIRADS CATEGORY 2: BENIGN FINDINGS [employer] and The Society of [...] 10:34 AM 02/22/2014 8:00 PM Care Teams Elementary School Reading Teacher Relationship Specialty Start Date End Date Ag Trent MD [address] [place] [address] PCP - General 02/02/14
--- OUTSIDE RECORDS SUMMARY | 2024-05-05 01:50 | XMS_ITS | Referral Summary ---
Author Organization [facility] Address [address] [place] [address] Care Team Providers Care Supervisor Pleating Name Role Phone Unavailable Primary Care Provider Unavailabl e Social History Tobacco Use Types Packs/Day Years Used Date Smoking Tobacco: Never Assessed Comments Unknown Sex and Gender Information Value Date Recorded Sex Assigned at Not on file Legal Sex Female 18:43 EST Gender Identity Not on file Sexual Orientation Not on file Plan of Treatment Not on file Insurance [facility] [place] [facility] Address: [address] [address] MEDICARE ACO [place]
--- OUTSIDE RECORDS SUMMARY | 2024-05-05 01:50 | XMS_ITS | Encounter Summary ---
Author Organization [facility] Address [address] [place] [address] Care Team Providers Care Dentistry Teacher Name Role Phone Latoya Quintanilla MD Primary Care Provider Unavailabl e Encounter Details Date Type Department Care Team (Late st Contact Info) Description 12/09/2023 Lab Requisition [facility] Pathology & Laboratory Medicine - [address] [address] Emmanuel Manuel MD [address] [place] [phone] Personal history of colonic polyps Social History [...] management options, if applicable. 12/11/2023 14:12 EDT [facility] Final Diagnosis A. COLON, TRANSVERSE, POLYP, BIOPSY: - Tubular adenoma. B. COLON, TRANSVERSE, POLYP X2, BIOPSY: - Tubular adenoma. C. RECTUM, POLYP, BIOPSY: - Hyperplastic polyp. - Deeper sections have been examined. 12/11/2023 14:12 [facility] Attestation There was significant resident/fellow involvement in the diagnostic evaluation of this case. By the signature below, the attending physician certifies that they have personally conducted a gross and/or microscopic examination of the described specimens and rendered or confirmed the above diagnosis. 12/11/2023 14:12 [facility] at 1412 Clinical History Hx of colon polyps 12/11/2023 14:12 [facility] Gross Description A. Received in [...] C1. Nurys Hamilton 12/09/2023 9:21 12/11/2023 14:12 [facility] Resident/Gato w: Canelo Mar DO 12/11/2023 14:12 [facility] Performing Lab [facility] 12/11/2023 14:12 [facility] Scanned Images 12/11/2023 14:12 [facility] Tissue SPECIMEN FROM RECTUM / Unknown 12/08/2023 13:02 EDT 12/09/2023 8:13 EDT Tissue specimen (specimen) POLYP OF COLON / Unknown 12/08/2023 13:02 EDT 12/09/2023 8:13 EDT Tissue specimen (specimen) SPECIMEN FROM RECTUM / Unknown 12/08/2023 13:02 EDT 12/09/2023 8:13 EDT us Emmanuel Manuel MD PATHOLOGY ORDERABLES F inal Result [facility] [address] [place], [place] [id number] documented in this encounter Visit Diagnoses Diagnosis Personal history of colonic polyps documented in this encounter Care Teams Dentistry Teacher Relationship Specialty Start Date End Date Latoya Quintanilla MD PCP - General 03/16/10 01/19/24 documented as of this encounter
--- OUTSIDE RECORDS SUMMARY | 2024-05-05 01:50 | XMS_ITS | Encounter Summary ---
Author Organization [facility] Address [facility] [place] [address] Care Team Providers Care Campus Interviews Intern Name Role Phone Ag Trent MD Primary Care Provider [phone] Encounter Details Date Type Department Care Team (Late st Contact Info) Description 05/24/2020 Telephone Hematology [place] [phone] Oxana Waite Social History Tobacco Use Types [...] Attn: Pathology Department From: Comprehensive Breast Program [phone] [x]Urgent [] For Review [] Please Reply []Please Recycle Comments: Please overnight all Pathology slides to include Core Biopsy's and Surgical Path. Mail to: Department of Pathology, [facility], Attn: [place] [address] Fed-Ex # [phone] If questions please call [phone] Notice of Confidentiality: The documents accompanying this FAX transmission cover contain information from [facility] that is confidential and privileged. The information [...] on filedocumented in this encounter Care Teams Campus Interviews Intern Relationship Specialty Start Date End Date Ag Trent MD [address] [place] [address] PCP - General 02/02/14 documented as of this encounter
--- OUTSIDE RECORDS SUMMARY | 2024-05-05 01:50 | XMS_ITS | Encounter Summary ---
Author Organization [facility] Address [address] [place] [address] Care Team Providers Care Occupational Therapist Home Based Name Role Phone Latoya Quintanilla MD Primary Care Provider Unavailabl e Encounter Details Date Type Department Care Team (Late st Contact Info) Description 05/22/2020 Lab Requisition [facility] Pathology & Laboratory Medicine - [facility] [address] [place] [address] Radha Agudelo, DO [address] [place] [address] Encounter for other general examination Social History [...] fibroadipose tissue. See comment. 05/23/2020 16:42 EST [facility] Diagnosis Comment The tissue core [...] correlate with the clinical findings. 05/23/2020 16:42 [facility] Attestation By the signature below, the attending physician certifies that they have 1) personally conducted a gross and/or microscopic examination of the described specimen(s), and/or personally interpreted the results of laboratory testing of the described specimen(s), and 2) personally rendered or confirmed the above diagnosis. 05/23/2020 16:42 [facility] at 1642 Clinical History Mass left anterior chest wall, history of breast cancer, left, status post radiation therapy and chemo 05/23/2020 16:42 [facility] Gross Description A. [...] 05/23/2020 KATERIN VINSON(ASCP) 05/23/2020 8:21 05/23/2020 16:42 [facility] Performing Lab [facility] 05/23/2020 16:42 [facility] Scanned Images 05/23/2020 16:42 [facility] Tissue ENTIRE BREAST / Unknown 05/22/2020 14:15 EST 05/22/2020 23:09 EST us Radha Agudelo DO PATHOLOGY ORDERABLES Final Re sult [facility] [address] [place] [address] documented in this encounter Visit Diagnoses Diagnosis Encounter for other general examination documented in this encounter Care Teams Occupational Therapist Home Based Relationship Specialty Start Date End Date Latoya Quintanilla MD PCP - General 03/16/10 01/19/24 documented as of this encounter
--- OUTSIDE RECORDS SUMMARY | 2024-05-05 01:50 | XMS_ITS | Encounter Summary ---
Author Organization [facility] Address [address] [place] [address] Care Team Providers Care Plasterer Apprentice Name Role Phone Latoya Quintanilla MD Primary Care Provider Unavailabl e Encounter Details Date Type Department Care Team (Late st Contact Info) Description 02/27/2016 Results Only [facility] [phone] Melvi Nunez MD [address] [place] [address] [place] [address] Social History Tobacco Use Types Packs/Day Years [...] ? NARDA FRAZIER ? Accession #: ? [id number] ? : ? 1950 (Age: 65) ??F [...] types 16,18,31,33,35, 39,45,51,52,56,58, 59,66, and 66 by timber buyer mediated amplification. Comments Document reviewed and electronically signed by: ? System Interface ? Report date: 03/05/2016 By the signature above, the attending physician certifies that he/she has personally conducted a gross and/or microscopic examination of the described specimens and rendered or confirmed the above diagnosis. End of Report [facility] 02/27/2016 02/28/2016 us Melvi Nunez MD PATHOLOGY ORDERABLES Final Resu lt [facility] [address] [place] [address] documented in this encounter Visit Diagnoses Not on filedocumented in this encounter Care Teams Plasterer Apprentice Relationship Specialty Start Date End Date Latoya Quintanilla MD PCP - General 03/16/10 01/19/24 documented as of this encounter
--- OUTSIDE RECORDS SUMMARY | 2024-05-05 01:50 | XMS_ITS | Encounter Summary ---
Author Organization [facility] Address [address] [place] [address] Care Team Providers Care Sec Reporting Consultant Name Role Phone Unavailable Primary Care Provider Unavailabl e Encounter Details Date Type Department Care Team (Late st Contact Info) Description 11/03/2007 Before PRISM Converted Visit ([place]) [address] [address] Latoya Quintanilla MD Social History Tobacco Use [...] ? FRAZIER, NARDA ? Accession #: ? [id number] ? : ? 1950 (Age: 57) ??F [...] reviewed and electronically signed by: ? Lillie [place], [place](ASCP) ? Report Date: ??11/05/2007 14:42 ? End of Report ? [facility] 11/03/2007 11/04/2007 us Latoya Quintanilla MD PATHOLOGY ORDERABLES Final Resul t [facility] [address] [place] [address] documented in this encounter Visit Diagnoses Not on filedocumented in this encounter
--- OUTSIDE RECORDS SUMMARY | 2024-05-05 01:50 | XMS_ITS | Encounter Summary ---
Author Organization [facility] Address [address] [place] [address] Care Team Providers Care Enterprise Data Architect Name Role Phone Unknown, Provider Primary Care Provider Unava ilable Encounter Details Date Type Department Care Team (Late st Contact Info) Description 03/14/2010 Results Only [facility] - [facility] ([facility]) [address] [place], [place] [address] Pradip Diaz MD [address] [place], [place] [address] Social History Tobacco Use Types Packs/Day Years [...] ? FRAZIER, NARDA ? Accession #: ? [id number] ? : ? 1950 (Age: 59) ??F [...] polyp ? Gross Description: ? Received in [facility] fixative labelled Frazier, Narda and cecal polyps [...] in toto in (B). ? [facility] fix[facility] labelled Frazier, Narda and descending colon [...] submitted intact in (C2). ? Received in [facility] fixative labelled Frazier, Narda and sigmoid polyp is a single 0.3 x 0.2 x 0.2 cm pink-doll, irregular soft tissue, submitted in toto in (D). (Stephany Nobles)/mpl ? End of Report ? [facility] 03/14/2010 03/14/2010 14: 07 EST us Pradip Diaz MD PATHOLOGY ORDERABLES Final Resul t [facility] [address] [place] [address] documented in this encounter Visit Diagnoses Not on filedocumented in this encounter Care Teams Enterprise Data Architect Relationship Specialty Start Date End Date Unknown, Provider, PCP - General 03/15/10 03/15/10 documented as of this encounter
--- OUTSIDE RECORDS SUMMARY | 2024-05-05 01:50 | XMS_ITS | Encounter Summary ---
Author Organization [facility] [place] [address] Care Team Providers Care Basketball Player Name Role Phone Ag Trent MD Primary Care Provider Encounter Details Date Type Department Care Team (Late st Contact Info) Description 02/15/2021 Telephone Hematology/Oncology at [address] [phone] Monika Stephenson Social History Tobacco [...] on filedocumented in this encounter Care Teams Basketball Player Relationship Specialty Start Date End Date Ag Trent MD [address] [place] [address] PCP - General 02/02/14 documented as of this encounter
--- OUTSIDE RECORDS SUMMARY | 2024-05-05 01:50 | XMS_ITS | Clinical Summary ---
Author Organization [facility] Address [address] [place] [address] Care Team Providers Care Critical Care Cns Name Role Phone Unavailable Primary Care Provider [...] - 1-dose 75+ series) 09/06/2023 COVID-19 Vaccine (2023- season) 2023 Insurance [facility] [place]
--- OUTSIDE RECORDS SUMMARY | 2024-05-05 01:50 | XMS_ITS | Encounter Summary ---
Author Organization [facility] Address [address] [place] [address] Care Team Providers Care Wet Process Miller Name Role Phone Latoya Quintanilla MD Primary Care Provider Unavailabl e Encounter Details Date Type Department Care Team (Late st Contact Info) Description 05/31/2020 Lab Requisition [facility] Pathology & Laboratory Medicine - [address] [address] Radha Agudelo, DO [address] [place] [address] Malignant neoplasm of unspecified site of unspecified [...] scar. - See Comment 06/02/2020 14:54 EST [facility] Diagnosis Comment Draw Hand slides of this case were reviewed at the intradepartmental consultation conference. Immunoperoxidase stains were performed on this case to further characterize the lesion. ANTIBODY(CLONE)(BLO CK):RESULT CD34 (QBEnd/10, Leica) (A3): Negative CK7 (RN7, Leica) (A3): Negative aSMA (alpha Smooth Muscle Actin (asm-1, Leica) (A3): Positive Beta Catenin (14, [place]) (A3): Negative (non-specific) Stat-6 (EP325, Cell 8020 Media) (A3): Negative The overall findings likely represent [...] performance characteristics have been determined by [facility] and/or by the referring laboratory. The positive [...] high complexity clinical laboratory testing. 06/02/2020 14:54 [facility] Attestation There was significant resident/fellow involvement in the diagnostic evaluation of this case. By the signature below, the attending physician certifies that they have personally conducted a gross and/or microscopic examination of the described specimens and rendered or confirmed the above diagnosis. 06/02/2020 14:54 [facility] at 1454 Clinical History L breast cancer; prior breast CA left breast 06/02/2020 14:54 [facility] Gross Description A. Received in [...] KATERIN RAZA(ASCP) 05/31/2020 10:59 06/02/2020 14:54 EST [facility] Resident/Fell ow: Taylor Leong DO 06/02/2020 14:54 EST [facility] Performing Lab [facility] 06/02/2020 14:54 EST [facility] Scanned Images 06/02/2020 14:54 EST [facility] Tissue ENTIRE LEFT BREAST / Unknown 05/30/2020 13:50 EST 05/31/2020 8:50 EST us Radha Agudelo DO PATHOLOGY ORDERABLES Final Re sult [facility] [address] [place] [address] documented in this encounter Visit Diagnoses Diagnosis Malignant neoplasm of unspecified site of unspecified female breast (HCC-CMS) Unspecified lump in unspecified breast documented in this encounter Care Teams Wet Process Miller Relationship Specialty Start Date End Date Latoya Quintanilla MD PCP - General 03/16/10 01/19/24 documented as of this encounter
--- OUTSIDE RECORDS SUMMARY | 2024-05-05 01:50 | XMS_ITS ---
Author Organization [facility] Address [facility] [place] [address] Care Team Providers Care Health Services Information Specialist Name Role Phone Ag Trent MD Primary Care Provider Active Problems Problem Noted Date Diagnosed Date CAD (coronary artery disease) 03/26/2019 Hypothyroidism 10/13/2015 Malignant neoplasm of left female breast (BREAST CANCER) 02/10/2014 Overview (12/16/2014): Diagnosis: Left 3.5 cm IDC with lobular features, lymphovascular invasion present, SLN 2/2 positive, ER+/SC+, Her-2 unaplified, T2,at least N1a, Mx Treatment:s/p [...] Deleted Kirill Saavedra MD [facility] not [facility] - DOXOrubicin / CYCLOPHOSPHAMIDE (DOSE DENSE) 201305/24/2014 cycloPHOSphamide (Cytoxan) in sodium chloride 0.9% 250 mL infusionDOXOrubicin (ADRIAMYCIN) Therapy Complete Kirill Saavedra MD 4 of 4 cycles completed Radiation Treatments * No radiation treatments are documented for this patient in [facility]. Treatments may have been administered in another [...] Cohen at [facility] Axillary Management [place] nodes alone--2+ of 2 sentinel nodes removed. [...] High grade Margin negative ER--estrogen receptor positive SC--progesterone receptor positive HER-2/FISH negative Adjuvant Chemotherapy Start [...] Medical oncology Imaging exams mammogram Surgery at [facility] Monitor for ongoing toxicities: Advance Directive: completed Possible late and alf effects of treatment: Tamoxifen side effect: Tamoxifen [...] exams for women's health care with either dopster or primary care provider. LIFE STYLE: Exercise: [...] one drink a day. Nutrition: Follow the [place] [employer] Guidelines that include the following: [...] Helpful websites www. cancer.gov -- National Cancer [place] www. nccn.org -- National Comprehensive Cancer Network www. canceradvocacy. org --National Coalition for Cancer Survivorship www. livestrong. org -- Livestrong Survivor Care www. acscsn.org -- Cancer Survivors Network Haley Robles --[phone] Survivorship care provider contacts ADVANCED RESEARCH PROGRAMS DIRECTOR: Haley Robles Resolved Problems Problem Noted Date Diagnosed Date Resolved Date Mucositis 06/02/2014 12/16/2014 Other specified prophylactic or treatment measure 03/29/2014 12/16/2014
--- OUTSIDE RECORDS SUMMARY | 2024-05-05 01:50 | XMS_ITS | Encounter Summary ---
Author Organization [facility] Address [address] [place] [address] Care Team Providers Care Wrap Yarn Sorter Name Role Phone Latoya Quintanilla MD Primary Care Provider Unavailabl e Encounter Details Date Type Department Care Team (Late st Contact Info) Description 05/08/2012 Results Only [facility] - [facility] [address], [place] [id number] Ag Trent MD [address] [place] [address] Social History Tobacco Use Types Packs/Day Years [...] ? NARDA FRAZIER ? Accession #: ? [id number] : ? 1950 (Age: 61) ??F ?Collect [...] Final Res ult [facility] [address] [place] [address] documented in this encounter Visit Diagnoses Not on filedocumented in this encounter Care Teams Wrap Yarn Sorter Relationship Specialty Start Date End Date Latoya Quintanilla MD PCP - General 03/16/10 01/19/24 documented as of this encounter
--- OUTSIDE RECORDS SUMMARY | 2024-05-05 01:50 | XMS_ITS | Encounter Summary ---
Author Organization [facility] Address [address] [place] [address] Care Team Providers Care Hoist Cylinder Loader Name Role Phone Latoya Quintanilla MD Primary Care Provider Unavailabl e Encounter Details Date Type Department Care Team (Late st Contact Info) Description 03/03/2015 Results Only [facility]- [facility] [phone] Mayelin Prado MD [facility] [facility] [address] [place], [place] [id number] Social History Tobacco Use Types Packs/Day Years [...] ? NARDA FRAZIER ? Accession #: ? [id number] ? : ? 1950 (Age: 64) ??F [...] this site. Clinical correlation is recommended. ??(Dr. Shi)/[facility] Document reviewed and electronically signed by: JT [...] Frazier 03/06/2015 9:55 AM End of Report [facility] 03/03/2015 8:57 EST 03/06/2015 8:57 EST us Mayelin Prado MD PATHOLOGY ORDERABLES Fin al Result [facility] [address] [place] [address] documented in this encounter Visit Diagnoses Not on filedocumented in this encounter Care Teams Hoist Cylinder Loader Relationship Specialty Start Date End Date Latoya Quintanilla MD PCP - General 03/16/10 01/19/24 documented as of this encounter
--- OUTSIDE RECORDS SUMMARY | 2024-05-05 01:50 | XMS_ITS | Encounter Summary ---
Author Organization [facility] Address [address] [place] [address] Care Team Providers Care Family Nurse Practitioner Name Role Phone Latoya Quintanilla MD Primary Care Provider Unavailabl e Encounter Details Date Type Department Care Team (Latest Contact Info) Description 03/03/2015 11:19 EST - 03/03/2015 23:59 EST Hospital Encounter [address] [address] Unknown, Provider, Discharge Disposition: Home or Self [...] Code Departure Means Destination Home or Self [facility]dc documented in this encounter Plan of Treatment Not on file documented as of this encounter Visit Diagnoses Not on filedocumented in this encounter Care Teams Family Nurse Practitioner Relationship Specialty Start Date End Date Latoya Quintanilla MD PCP - General 03/16/10 01/19/24 documented as of this encounter
--- OUTSIDE RECORDS SUMMARY | 2024-05-05 01:51 | XMS_ITS | Encounter Summary ---
Author Organization [facility] [place] [address] Care Team Providers Care Membership Coordinator Name Role Phone Ag Trent MD Primary Care Provider [phone] Encounter Details Date Type Department Care Team (Late st Contact Info) Description 10/29/2018 1:00 PM EDT Office Visit Hematology/Oncology at [address] [phone] Christie Cruz, RAJ Malignant neoplasm of left breast in female, [...] Sign Reading Time Taken Comments Blood Pressure 148/66 10/29/2018 1:05 PM EDT Pulse 67 10/29/2018 1:05 PM EDT Temperature 37.1 ??C (98.8 ??F) 10/29/2018 1:05 PM ED T Respiratory Rate 18 10/29/2018 1:05 PM EDT Oxygen Saturation 97% 10/29/2018 1:05 PM EDT Inhaled Oxygen Concentration - - Weight 86.5 kg (190 lb 9.6 oz) 10/29/2018 1:05 P M EDT Height 160 cm (5' 3) 10/29/2018 1:05 PM EDT Body Mass Index 33.76 10/29/2018 1:05 PM EDT documented in this encounter Progress Notes * Christie Cruz APRN - 10/29/2018 1:00 PM EDT Subjective: Patient ID: Narda Rivera is a 68 y.o. female. Diagnosis: Left 3.5 cm IDC with lobular features, lymphovascular invasion present, SLN 2/2 positive, ER+/SC+, Her-2 unaplified. HPI: Ms. Narda Rivera is 67 y.o. female Referred to us for consultation by Dr. Cohen on new diagnosis of breast cancer. She initially presented with a mass in her upper outer left breast with calcifications on a screening mammogram in December 2013.The main mass was biopsied showing infiltrating ductal and lobular carcinoma, ER positive, [id number]. MRI was then performed that showed the mass with multiple small satellites around it. Mrs. Rivera underwent left partial mastectomy and sentinel lymph node biopsy on February 23, 2014. Postoperative course was uneventful. she completed radiation on (taken from Stephany Guadalupe's note 04/10/18). Interval History: Ms. Rivera returns to clinic today for labs, repeat evaluation and CBE. She reports she stopped taking her Tamoxifen, Ca+, and Vitamin D supplements. She is seeing a Hairspring Truer and had a thermal breast scan. She is wondering if she should continue annual breast mammograms. She continues taking her anti- depression medication, and she denies pain, fever, chills, night sweats or unusual bleeding. PMH, PSH, FH, and SH: Except as mentioned in the interim history, no interval changes since last visit. Review of Systems Constitutional: Negative. HENT: Negative. Eyes: Negative. Respiratory: Negative. Cardiovascular: Negative. Gastrointestinal: Negative. Endocrine: Negative. Genitourinary: Negative. Musculoskeletal: Negative. Skin: Negative. Allergic/Immunologic: Negative. Neurological: Negative. Hematological: Negative. Psychiatric/Behavioral: Negative. Objective: Physical Exam Constitutional: She is oriented to person, place, and time. She appears well- developed and well-nourished. HENT: Head: Normocephalic and atraumatic. Nose: Nose normal. Mouth/Throat: Oropharynx is clear and moist. Eyes: Conjunctivae and EOM are normal. Neck: Normal range of motion. Neck supple. Cardiovascular: Normal rate and regular rhythm. Pulmonary/Chest: Effort normal and breath sounds normal. Abdominal: Soft. Bowel sounds are normal. Musculoskeletal: Normal range of motion. Neurological: She is alert and oriented to person, place, and time. Skin: Skin is warm and dry. Psychiatric: She has a normal mood and affect. Her behavior is normal. Vitals reviewed. Vitals: BP 148/66 (Patient Position: Sitting) Pulse 67 Temp 37.1 ??C (98.8 ??F) (Oral) Resp 18 Ht 160 cm (5' 3) Wt 86.5 kg (190 lb 9.6 oz) SpO2 97% BMI 33.76 kg/m?? 10/29/18 LABs: WBC 3.98, Hgb./Hct. 14.8/42.2, Plts. 257, ANC 2.17. Chem: Na+/K+ 139/3.6, BUN/Creat. 20/0.5, AST 19, ALT 36, Alk. Lizzette. 134, Alb. 3.3. Assessment and Plan: 1. Breast cancer. Treated with surgery, chemotherapy and radiation therapy. Mos recently Tamoxifen 20mg daily. 2. Patient stopped Tamoxifen because she is seeing a Naturopathic provider. 3. Follow up for Year mammograms as scheduled. Her last mammogram was in May 2018 and negative. 4. RTC in 1 year for labs, repeat evaluation and CBE. Christie Cruz, MSN, ADMIN PROG COORD, AOCNP documented in this encounter Plan of Treatment Not on file documented as of this encounter Visit Diagnoses Diagnosis Malignant neoplasm of left breast in female, estrogen receptor positive, unspecified site of breast documented in this encounter Care Teams Membership Coordinator Relationship Specialty Start Date End Date Ag Trent MD [address] [place] [address] PCP - General 02/02/14 documented as of this encounter
--- OUTSIDE RECORDS SUMMARY | 2024-05-05 01:51 | XMS_ITS | Encounter Summary ---
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 Subjective: HPI: Ms. Narda Rivera is 65 y.o. female Referred to us for consultation by Dr. Cohen on new diagnosis of breast cancer. She initially presented with a mass in her upper outer left breast with calcifications on a screening mammogram in December 2013.The main mass wasbiopsied showing infiltrating ductal and lobular carcinoma, ER positive, [id number]. MRI was then performed that showed the [...] nodes normal Neurologic: Normal; nl patellar reflexes; preparation operator grossly intact Vitals There were no vitals [...] count: Score = 3 Total Khalif Score: Levant Grade III: 8-9 points DCIS: Ductal Carcinoma [...] slide reconstruction) MICROCALCIFICATIONS: Present in nonneoplastic tissue ER/IA/HER2: ER/IA/Her2 Comment: Please see prior biopsy [id number]. HER2 FISH will be repeated on this [...] cancer cells with immunostaining) Stain Intensity: Strong IA immunoreactivity: Positive (11-90% cancer cells with immunostaining) [...] CMP in 4 months Meenakshi Sanchez, MSN, MARZIPAN MAKER, AOCN [facility] [place] [address] documented in this encounter Plan of Treatment Not on file documented as of this encounter Visit Diagnoses Diagnosis Malignant neoplasm of left female breast, unspecified site of breast documented in this encounter Care Teams Girls Tennis Coach Relationship Specialty Start Date End Date Ag Trent MD [address] [place] [address] PCP - General 02/02/14 documented as of this encounter
--- OUTSIDE RECORDS SUMMARY | 2024-05-05 01:51 | XMS_ITS | Encounter Summary ---
Author Organization [facility] Address [facility] [place] [address] Care Team Providers Care Prosthodontist/Owner Name Role Phone Ag Trent MD Primary Care Provider [phone] Encounter Details Date Type Department Care Team (Late st Contact Info) Description 03/18/2019 Orders Only Cardiology at [address] [place] [place] [phone] Carroll Middleton PA [facility] [place] [address] Screening for cardiovascular condition; Abnormal stress test [...] Modality Other Narrative 03/26/2019 12:49 PM EST ?[facility] ? Cardiac Catheterization/Intervention Report ? Patient Name: FRAZIER, NARDA M. ? Procedure Date: 03/26/2019 ? A #: [id number] ? Primary Physician: Roxi, Nicholas T ? Case #: [id number] ? File Name: [id number] ? Catheterization Order Number: [id number] ? [facility] ? Final Report [place], [place] ? Patient Name: ? NARDA M. FRAZIER ? ID#: ?[id number] ? : ?1950 ? Procedure Date: ? March 26, 2019 ?Case #: ? [id number] ? Room: ? 1 ? Case Physician: [...] procedure was Elective. The indication for ?the laborer livestock visit is suspected CAD. Chest pain symptom [...] Procedure Note Nicholas Diane MD - 05/27/2019 [facility] Cardiac Catheterization/Intervention Report Patient Name: NARDA FRAZIER Procedure Date: 03/26/2019 A #: [id number] Primary Physician: Nicholas Diane Case #: [id number] File Name: [id number] Catheterization Order Number: [id number] [facility] FinalReport [place], [place] Patient Name: NARDA FRAZIER ID#:[id number] :1950 Procedure Date: March 26, 2019 Case [...] diagnostic procedure was Elective. Theindication for the laborer livestock visit is suspected CAD. Chest pain symptom [...] The lesion was predilated with a 2.50mm [id number] MM balloon with a maximum inflation pressure [...] The lesion was predilated with a 2.00mm [id number] MM balloon with a maximum inflation pressure [...] study documented in this encounter Care Teams Prosthodontist/Owner Relationship Specialty Start Date End Date Ag Trent MD [address] [place] [address] PCP - General 02/02/14 documented as of this encounter
--- OUTSIDE RECORDS SUMMARY | 2024-05-05 01:51 | XMS_ITS | Encounter Summary ---
Author Organization [facility] [place] [address] Care Team Providers Care Black Oxide Coating Equipment Tender Name Role Phone Ag Trent MD Primary Care Provider Encounter Details Date Type Department Care Team (Late st Contact Info) Description 01/29/2017 Orders Only Hematology/Oncology at [address] [phone] Kiarra Madrid RN Personal history of breast [...] breast documented in this encounter Care Teams Black Oxide Coating Equipment Tender Relationship Specialty Start Date End Date Ag Trent MD [address] [place] [address] PCP - General 02/02/14 documented as of this encounter
--- OUTSIDE RECORDS SUMMARY | 2024-05-05 01:51 | XMS_ITS | Encounter Summary ---
Author Organization [facility] Address [facility] [place] [address] Care Team Providers Care Cpa Tax Name Role Phone Ag Trent MD Primary Care Provider [phone] Reason for Visit * Reason Comments Follow-up Encounter Details Date Type Department Care Team (Late st Contact Info) Description 03/12/2016 3:00 PM EST Office Visit Hematology/Oncology at [address] [phone] Kirill Saavedra MD [facility] [address] [place] [address] Personal history of breast cancer Social History [...] features, lymphovascular invasion present, SLN 2/2 positive, ER+/NV+, Her-2 unaplified. Subjective:I feel fine HPI: Ms. Narda Rivera is 65 y.o. female Referred to us for consultation by Dr. Cohen on new diagnosis of breast cancer. She initially presenteda mass in her upper outer left breast with calcificationson a screening mammogram in December 2013.The main mass wasbiopsied showing infiltrating ductal and lobular carcinoma, ER positive, [id number]. MRI was then performed that showed the [...] features, lymphovascular invasion present, SLN 2/2 positive, ER+/NV+, Her-2 unaplified, T2,at least N1a, Mx Treatment:s/p [...] breast. Examination was done in [facility] Heart: Regular rate and rhythm, S1, S2 [...] count: Mitotic count: Score = 3 Total Doniphan Score: Khalif Grade III: 8-9 points DCIS: [...] slide reconstruction) MICROCALCIFICATIONS: Present in nonneoplastic tissue ER/NV/HER2: ER/NV/Her2 Comment: Please see prior biopsy [id number]. HER2 FISH will be repeated on this [...] cancer cells with immunostaining) Stain Intensity: Strong NV immunoreactivity: Positive (11-90% cancer cells with immunostaining) [...] features, lymphovascular invasion present, SLN 2/2 positive, ER+/NV+, Her-2 unaplified, T2,at least N1a, Mx Treatment:s/p [...] Mrs. Rivera tolerated tamoxifen well. She had ASSOCIATE CHIEF NURSE evaluation.Sutent 20 mg daily. I'll see her [...] breast documented in this encounter Care Teams Cpa Tax Relationship Specialty Start Date End Date Ag Trent MD [address] [place] [address] PCP - General 02/02/14 documented as of this encounter
--- OUTSIDE RECORDS SUMMARY | 2024-05-05 01:51 | XMS_ITS | Encounter Summary ---
Author Organization [place] [address] Care Team Providers Care Diabetes Nurse Name Role Phone Ag Trent MD Primary Care Provider [phone] Reason for Visit * Reason Comments Radiation Follow-up breast cancer Encounter Details Date Type Department Care Team (Late st Contact Info) Description 12/30/2018 1:00 PM EDT Office Visit Radiation Oncology at [address] [phone] Haley Robles, RAJ Breast cancer, stage 2, left Social History [...] in this encounter Progress Notes * Haley Robles APRN - 12/30/2018 1:00 PM EDT Images from the original note were not included. Patient ID: Narda Rivera is a 68 y.o. female.breast ca, L, IDC w/lobular features, high gr, ER+MT+, Dit0oag-, s/p lumpectomy & SNB, pT2 pN1a, stage [...] – [place] interp: L breast lesion 1, SUSPICIOUS, 14 mm mass @ 0100. L breast lesion 2, SUSPICIOUS, 3.8 mm mass @ 0100, 12 mm from lesion 1. R breast neg. ?? 02/02/14 US guided core needle bxs L breast mass @ 0100. ?? Path: Invasive mammary ca w/ductal & lobular features. LVI present. ER+MT+. Ufc8rmh IHC neg. ?? 02/08/14 B breast MRI: [...] = 0.6 - 0.8 cm; pT2 pN1a. Dlu0jtn FISH neg. Comment: Multiple satellite foci of [...] (NEULASTA) SubQ 6 mg ONCBCN ONCOLOGY (AMB) 05/10/2014 05/11/2014 Day, Cycle Day 1, Cycle 4 Day 2, Cycle 4 cyclophosphamide (CYTOXAN) IV 600 mg/m2/dose = 1,182 mg DOXOrubicin (ADRIAMYCIN) IV 60 mg/m2/dose = 118.2 mg PACLitaxel (TAXOL) IV pegfilgrastim (NEULASTA) SubQ 6 mg ONCN ONCOLOGY ([facility]) 05/24/2014 05/31/2014 Day, Cycle Day 1, Cycle 1 Day 8, Cycle 1 cyclophosphamide (CYTOXAN) IV DOXOrubicin (ADRIAMYCIN) IV PACLitaxel (TAXOL) IV 80 mg/m2/dose = 154 mg 80 mg/m2/dose = 154 mg pegfilgrastim (NEULASTA) SubQ ONCBCN ONCOLOGY (AMB) 06/07/2014 06/14/2014 Day, Cycle Day 15, Cycle 1 Day 1, Cycle 2 cyclophosphamide (CYTOXAN) IV DOXOrubicin (ADRIAMYCIN) IV PACLitaxel (TAXOL) IV 80 mg/m2/dose = 154 mg 80 mg/m2/dose = 154 mg pegfilgrastim (NEULASTA) SubQ ONCBCN ONCOLOGY (AMB) 06/21/2014 06/28/2014 Day, Cycle Day 8, Cycle 2 Day 15, Cycle 2 cyclophosphamide (CYTOXAN) IV DOXOrubicin (ADRIAMYCIN) IV PACLitaxel (TAXOL) IV 80 mg/m2/dose = 154 mg 80 mg/m2/dose = 154 mg pegfilgrastim (NEULASTA) SubQ ONCBCN ONCOLOGY (AMB) 07/05/2014 07/12/2014 Day, Cycle Day 1, Cycle 3 Day 8, Cycle 3 cyclophosphamide (CYTOXAN) IV DOXOrubicin (ADRIAMYCIN) IV PACLitaxel (TAXOL) IV 80 mg/m2/dose = 154 mg 80 mg/m2/dose = 154 mg pegfilgrastim (NEULASTA) Sub ONCBCN ONCOLOGY (AMB) 07/19/2014 07/26/2014 Day, Cycle Day 15, Cycle 3 Day 1, Cycle 4 cyclophosphamide (CYTOXAN) IV DOXOrubicin (ADRIAMYCIN) IV PACLitaxel (TAXOL) IV 80 mg/m2/dose = 154 mg 80 mg/m2/dose = 154 mg pegfilgrastim (NEULASTA) SubQ ONCBCN ONCOLOGY (AMB) 08/02/2014 08/09/2014 Day, Cycle Day [...] Surgery Lumpectomy done by Dr Cohen at [facility] Axillary Management [place] nodes alone--2+ of 2 sentinel nodes removed. [...] High grade Margin negative ER--estrogen receptor positive MT--progesterone receptor positive HER-2/FISH negative Adjuvant Chemotherapy Start [...] NODE(S) performed by Ibrahima Cohen MD at [facility] MAIN OR ??? PRO IDENTIFY SENTINEL NODE Left 02/22/2014 SENTINEL NODE INJECTION performed by Ibrahima Cohen MD at [facility] MAIN OR ??? PRO MASTECTOMY, PARTIAL Left 02/22/2014 MASTECTOMY PARTIAL performed by Ibrahima Cohen MD at [facility] MAIN OR Allergies Allergen Reactions ??? Coumadin [...] file Gets together: Not on file Attends catholic service: Not on file Active member of [...] Per her requested obtained a copy from [facility]. Pt reviewed the document and indicated she wants to make changes. She was previously given a new [place] advance directive booklet/form by JEREMY and patient is to review and complete. Utilization of Community Resources: Pt receives her primary care at the [facility]. Adjustment to Illness/Mental Health Issues: Patient was hospitalized at [facility] last December for severe depression with SI. She was started on meds and Tamoxifen was discontinued. She sees a research psychologist once a month and feels that [...] effects No vaginal bleeding, + arthritis ankle Misc Sees psych ORGAN RECOVERY COORDINATOR once a month at [facility] Review of Systems Constitutional: Negative. Negative for [...] Visit from 12/30/2018 in Radiation Oncology at [facility] Weight 87.5 kg (193 lb) Height 160 [...] ca, L, IDC w/lobular features, high gr, ER+MT+, Rdy2cpf-, s/p lumpectomy & SNB, pT2 pN1a, stage [...] was done. Depression-patient is followed by psych ORGAN RECOVERY COORDINATOR locally once a month. Currently depression is [...] left documented in this encounter Care Teams Diabetes Nurse Relationship Specialty Start Date End Date Ag Trent MD [address] [place] [address] PCP - General 02/02/14 documented as of this encounter
--- OUTSIDE RECORDS SUMMARY | 2024-05-05 01:51 | XMS_ITS | Encounter Summary ---
Author Organization [facility] Address [facility] [place] [address] Care Team Providers Care Leather Goods Assembler Name Role Phone Ag Trent MD Primary Care Provider [phone] Encounter Details Date Type Department Care Team (Latest Contact Info) Description 05/15/2016 1:30 PM EST - 05/15/2016 11:59 PM [facility] Hospital [place] [phone] Ibrahima Cohen MD [facility] [place] [address] Malignant neoplasm of left female breast, unspecified [...] Center. BIRADS CATEGORY 2: BENIGN FINDINGS [employer] and The Society of [...] breast documented in this encounter Care Teams Leather Goods Assembler Relationship Specialty Start Date End Date Ag Trent MD [address] [place] [address] PCP - General 02/02/14 documented as of this encounter
--- OUTSIDE RECORDS SUMMARY | 2024-05-05 01:51 | XMS_ITS | Encounter Summary ---
Author Organization [facility] Address [facility] [place] [address] Care Team Providers Care Grocery Deliverer Name Role Phone Ag Trent MD Primary Care Provider [phone] Encounter Details Date Type Department Care Team (Late st Contact Info) Description 05/19/2020 Telephone Hematology [place] [phone] Oxana Waite Social History Tobacco Use Types [...] 05/19/2020 3:49 PM EST Narda Rivera [id number] Referring provider: Kendy Su APRN Date of Referral: 05.19.2020 Please review outside breast imaging dated: 05.19.2020 Reason for exam and clinical history:Left breast spiculated hypoechoic mass 12 o'clock Category: $ Questions to be answered: ?more imaging, ? BX Sending Institution: [facility] Patient would like treatment at: [facility] Call pt at: Mobile Not on file. documented in this encounter Plan of Treatment Not on file documented as of this encounter Visit Diagnoses Not on filedocumented in this encounter Care Teams Grocery Deliverer Relationship Specialty Start Date End Date Ag Trent MD [address] [place] [address] PCP - General 02/02/14 documented as of this encounter
--- OUTSIDE RECORDS SUMMARY | 2024-05-05 01:51 | XMS_ITS | Encounter Summary ---
Author Organization [facility] Address [facility] [place] [address] Care Team Providers Care Vice Investigator Name Role Phone Ag Trent MD Primary Care Provider Encounter Details Date Type Department Care Team (Late st Contact Info) Description 04/07/2019 Telephone [place] [phone] Gaby Guadalupe Social History Tobacco Use Types [...] and breast exam with a general surgery AD TERMINAL MAKEUP OPERATOR. Shedeclined and will be following up at her local hospital. documented in this encounter Plan of Treatment Not on file documented as of this encounter Visit Diagnoses Not on filedocumented in this encounter Care Teams Vice Investigator Relationship Specialty Start Date End Date Ag Trent MD [address] [place] [address] PCP - General 02/02/14 documented as of this encounter
--- OUTSIDE RECORDS SUMMARY | 2024-05-05 01:51 | XMS_ITS | Encounter Summary ---
Author Organization [facility] Address [facility] [place] [address] Care Team Providers Care Extension Course Counselor Name Role Phone Ag Trent MD Primary Care Provider [phone] Encounter Details Date Type Department Care Team (Late st Contact Info) Description 01/14/2018 Telephone [place] [phone] Haley Robles APRN Social History Tobacco Use Types Packs/Day Years [...] from patient. She is currently at the [facility]. Her depression worsened and she became suicidal and wanted to cut herself. She was sent to the ER and then transferred [facility]. She has been off her tamoxifen for [...] on filedocumented in this encounter Care Teams Extension Course Counselor Relationship Specialty Start Date End Date Ag Trent MD [address] [place] [address] PCP - General 02/02/14 documented as of this encounter
--- OUTSIDE RECORDS SUMMARY | 2024-05-05 01:51 | XMS_ITS | Encounter Summary ---
Author Organization [facility] Address [facility] [place] [address] Care Team Providers Care Control Clerk Repairs Name Role Phone Ag Trent MD Primary Care Provider [phone] Encounter Details Date Type Department Care Team (Latest Contact Info) Description 05/14/2018 12:32 PM EST - 05/14/2018 11:59 PM [facility] Encounter Mammography/[place] [phone] Ibrahima Cohen MD [facility] [address] [place] [id number] Malignant neoplasm of left breast in female, estrogen receptor positive, unspecified site of breast Discharge Disposition: Home [...] Sig Dispensed Refills Start Date End Date mirtazapine (REMERON) 15 mg Tablet Take by [...] mouth daily. 90 tablet 3 01/29/2017 12/30/2018 pravastatin (PRAVACHOL) 20 mg Tablet Take 40 [...] documented in this encounter Results * Mammo Screening Cad and Nathen [...] Center. BIRADS CATEGORY 2: BENIGN FINDINGS [employer] and [employer] of [...] breast documented in this encounter Care Teams Control Clerk Repairs Relationship Specialty Start Date End Date Ag Trent MD [address] [place] [address] PCP - General 02/02/14 documented as of this encounter
--- OUTSIDE RECORDS SUMMARY | 2024-05-05 01:51 | XMS_ITS | Encounter Summary ---
Author Organization [facility] Address [facility] [place] [address] Care Team Providers Care Alumni Secretary Name Role Phone Ag Trent MD Primary Care Provider [phone] Reason for Visit * Reason Comments Radiation Follow-up breast cancer Encounter Details Date Type Department Care Team (Late st Contact Info) Description 11/14/2016 3:15 PM EDT Office Visit Radiation Oncology at [address] [phone] Haley Robles, MANUFACTURING MANAGER Malignant neoplasm of left breast in female, [...] Progress Notes * Haley Robles APRN - 11/14/2016 3:15 PM EDT Images from the original note were not included. Patient ID: Narda Rivera is a 66 y.o. female.breast ca, L, IDC w/lobular features, high gr, ER+AZ+, Lol2ule-, s/p lumpectomy & SNB, pT2 pN1a, stage II, +extensive LVI. S/p adjuvant chemo and radiation therapy. She was treated with 60.4 Gy which was completed on 10/18/2014. She is now on tamoxifen for hormone therapy. She is in clinic for scheduled followup. HPI 63 y/o f who underwent a screening mmg in 01/11, w/[facility] interp: L breast lesion 1, SUSPICIOUS, 14 mm mass @ 0100. L breast lesion 2, SUSPICIOUS, 3.8 mm mass @ 0100, 12 mm from lesion 1. R breast neg. ?? 02/02/14 US guided core needle bxs L breast mass @ 0100. ?? Path: Invasive mammary ca w/ductal & lobular features. LVI present. ER+AZ+. Mva7rsc IHC neg. ?? 02/08/14 B breast MRI: [...] = 0.6 - 0.8 cm; pT2 pN1a. [id number] FISH neg. Comment: Multiple satellite foci of [...] pegfilgrastim (NEULASTA) SubQ 6 mg ONCN ONCOLOGY ([facility]) 05/24/2014 05/31/2014 Day, Cycle Day 1, Cycle [...] 154 mg pegfilgrastim (NEULASTA) SubQ ONCN ONCOLOGY ([facility]) 06/21/2014 06/28/2014 Day, Cycle Day 8, Cycle 2 Day 15, Cycle 2 cyclophosphamide (CYTOXAN) IV DOXOrubicin (ADRIAMYCIN) IV PACLitaxel (TAXOL) IV 80 mg/m2/dose = 154 mg 80 mg/m2/dose = 154 mg pegfilgrastim (NEULASTA) Sub ONCBCN ONCOLOGY ([facility]) 07/05/2014 07/12/2014 Day, Cycle Day 1, Cycle 3 Day 8, Cycle 3 cyclophosphamide (CYTOXAN) IV DOXOrubicin (ADRIAMYCIN) IV PACLitaxel (TAXOL) IV 80 mg/m2/dose = 154 mg 80 mg/m2/dose = 154 mg pegfilgrastim (NEULASTA) [facility] ONCBCN ONCOLOGY ([facility]) 07/19/2014 07/26/2014 Day, Cycle Day 15, Cycle 3 Day 1, Cycle 4 cyclophosphamide (CYTOXAN) IV DOXOrubicin (ADRIAMYCIN) IV PACLitaxel (TAXOL) IV 80 mg/m2/dose = 154 mg 80 mg/m2/dose = 154 mg pegfilgrastim (NEULASTA) [facility] ONCN ONCOLOGY ([facility]) 08/02/2014 08/09/2014 Day, Cycle [...] Surgery Lumpectomy done by Dr Cohen at [facility] Axillary Management Hurricane nodes alone--2+ of 2 sentinel nodes removed. [...] High grade Margin negative ER--estrogen receptor positive AZ--progesterone receptor positive HER-2/FISH negative Adjuvant Chemotherapy Start [...] NODE(S) performed by Ibrahima Cohen MD at [facility] MAIN OR ??? PRO IDENTIFY SENTINEL NODE Left 02/22/2014 SENTINEL NODE INJECTION performed by Ibrahima Cohen MD at [facility] MAIN OR ??? PRO MASTECTOMY, PARTIAL Left 02/22/2014 MASTECTOMY PARTIAL performed by Ibrahima Cohen MD at [facility] MAIN OR Allergies Allergen Reactions [...] She has utilized the SHIP services at [facility] and referred her back to there to speak with her contact. ??Advance Directives: pt has completed her advance directive. Per her requested obtained a copy from [facility]. Pt reviewed the document and indicated she wants to make changes. She was given a new [place] advance directive booklet/form to review and complete. Utilization of Community Resources: [facility] services. Pt receives her primary care at the [facility]. Pt agreeable to participate in the [place] [facility] Project. Discussed project and provided her with the brochure. SEAN Galeano RN, [facility] and informed her pt willing to participate. Adjustment to Illness/Mental Health Issues: Coping well at this time. ?? Identified Needs: With insurance related questions and referred to [facility] SHIP staff who she has utilized in [...] had some blood work done today at [facility] for her upcoming appointment with Dr Saavedra [...] years Vitals Office Visit from 11/14/2016 in [facility] Radiation Oncology Weight - Scale 84.6 [...] ?? RECOMMENDATION:Routine screening. 11/14/2016- WBC=4.81, RBC=4.96, HGB=14.8, HCT=42.5STXG=336, CA=8.8, TOF=555, BUN=16, CREAT=0.63, EGFR=>60, TPROT=7.0, ALB=3.3, T BILI=0.16, ALKP=94, JE=014, K=3.9, JW=262, CO2=25.4, ANIO GAP=10.6, AST=16, ALT=20 Assessment and Plan: Narda Rivera is a torri 66 y.o. female.breast ca, L, IDC w/lobular features, high gr, ER+AZ+, Lgs7mik-, s/p lumpectomy & SNB, pT2 pN1a, stage [...] breast documented in this encounter Care Teams Alumni Secretary Relationship Specialty Start Date End Date Ag Trent MD [address] [place] [address] PCP - General 02/02/14 documented as of this encounter
--- OUTSIDE RECORDS SUMMARY | 2024-05-05 01:51 | XMS_ITS | Encounter Summary ---
Author Organization [facility] Address [facility] [place] [address] Care Team Providers Care Project Construction Assistant Manager Name Role Phone Ag Trent MD Primary Care Provider Encounter Details Date Type Department Care Team (Late st Contact Info) Description 05/09/2020 Orders Only Hematology/Oncology at [address] [phone] Kendy Su APRN [facility] [place] [address] Malignant neoplasm of left breast in female, [...] breast documented in this encounter Care Teams Project Construction Assistant Manager Relationship Specialty Start Date End Date Ag Trent MD [address] [place] [address] PCP - General 02/02/14 documented as of this encounter
--- OUTSIDE RECORDS SUMMARY | 2024-05-05 01:51 | XMS_ITS | Encounter Summary ---
Author Organization [facility] Address [facility] [place] [address] Care Team Providers Care Solid Surface Fabricator Name Role Phone Ag Trent MD Primary Care Provider [phone] Encounter Details Date Type Department Care Team (Late st Contact Info) Description 05/19/2020 4:20 PM EST Ancillary Procedure Radiology Library at [facility] [place] [phone] Ag Trent MD [address] [place] [address] Social History Tobacco Use Types [...] Trent MD IMG FILM LIBRARY ORD ERABLES [place], [place] documented in this encounter Visit Diagnoses Not on filedocumented in this encounter Care Teams Solid Surface Fabricator Relationship Specialty Start Date End Date Ag Trent MD [address] [place] [address] PCP - General 02/02/14 documented as of this encounter
--- OUTSIDE RECORDS SUMMARY | 2024-05-05 01:51 | XMS_ITS | Encounter Summary ---
Author Organization [facility] Address [facility] [place] [address] Care Team Providers Care Sketch Artist Name Role Phone Ag Trent MD Primary Care Provider [phone] Reason for Visit * Auth/Cert Specialty Diagnoses [...] Expiration Date Visits Re quested Visits Authorized [id number] 1 1 Encounter Details Date Type Department Care Team (Late st Contact Info) Description 03/26/2019 9:30 AM EST - 03/26/2019 10:30 AM EST Surgery [place] [address] Nicholas Diane MD [facility] [place] [address] CARDIAC CATHETERIZATION Social History Tobacco Use Types [...] Narda Rivera Patient Age: 68 y.o. Language: Sierra Leonean Race: White Ethnicity: Not nor Admit date: [...] FIND 2 times daily. Estrogen suppressant from qa engineer, takes twice a day Refills: 0 VITAMIN [...] appointments: -During 8am-5pm Friday through Friday call [phone] to speak with a nurse in the cardiology clinic -All other times call [phone] and ask to speak to the civil engineer helper nursing information systems coordinator. MEDICATIONS Plavix -you need to be on daily Plavix for at least 6 months and aspirin for lifetime to help prevent clots forming inside of your stent. -do not stop plavix without talking to your welding machine operator thermit -You should be taking a statin medication [...] Primary care provider: Cardiology: Ag Trent MD [phone] Follow up as planned or as needed. Please schedule an appointment to follow up with your welding machine operator thermit, Dr. Mariee in 3-6 weeks. General Instructions None Discharge References/Attachments None Isaac Morse MD Interventional Cardiology 03/27/19 7:[address] [facility] Pager: [phone] documented in this encounter Discharge Instructions * Patient Instructions* Isaac Morse - 03/27/2019 7:29 AM EST Discharge Instructions following cardiac catheterization Cardiology Instructions Call your doctor if you experience: Chest pain, dyspnea, pain or swelling in legs occurs. If you have non-emergent questions between now and the time of your follow up appointments: -During 8am-5pm Friday through Friday call [phone] to speak with a nurse in the cardiology clinic -All other times call [phone] and ask to speak to the civil engineer helper nursing information systems coordinator. MEDICATIONS Plavix -you need to be on daily Plavix for at least 6 months and aspirin for lifetime to help prevent clots forming inside of your stent. -do not stop plavix without talking to your welding machine operator thermit -You should be taking a statin medication [...] Primary care provider: Cardiology: Ag Trent MD [phone] Follow up as planned or as needed. Please schedule an appointment to follow up with your welding machine operator thermit, Dr. Mariee in 3-6 weeks. * Attachments The following attachments cannot be sent through Care Everywhere. * PCI (Percutaneous Coronary Intervention): Post-op (S[place]an) documented in this encounter Medications at Time [...] FIND 2 times daily. Estrogen suppressant from qa engineer, takes twice a day lamoTRIgine (LAMICTAL) 25 [...] Borjas MSW - 03/27/2019 9:17 AM EST STOCK PATCH SAWYER contacted [facility] ([facility]) who confirmed pt will be picked up at [facility] today (03/27) at 12:00pm. STOCK PATCH SAWYER provided RCT with contact information for self and Short Stay Unit if needed for any additional follow up. Office Of Care Management Float/Weekend Line Painting Machine Operator JEREMY Caruso Pager [phone] * Kari Barker RN - 03/26/2019 3:01 PM EST Patient Name: Narda Rivera Patient Age: 68 y.o. Birthdate: 1950 Admit date: 03/26/2019 Attending Physician: Nicholas Diane MD Narda Rivera arrived to [facility] 11 @ 1452 from Sewage Disposal Engineer, report received from Julia BUTT. Oriented to [...] FIND 2 times daily. Estrogen suppressant from qa engineer, takes twice a day ??? lamoTRIgine (LAMICTAL) [...] file Gets together: Not on file Attends worship service: Not on file Active member of [...] patient and available family. Nicholas Diane MD, [facility] Attending High Lighter Pager [phone] * Isaac Morse - 03/26/2019 10:34 AM [...] FIND 2 times daily. Estrogen suppressant from qa engineer, takes twice a day ??? lamoTRIgine (LAMICTAL) [...] in an outpatient cardiac rehabilitation program at [facility] was discussed. Patient declined a referral to this program. She expressed concern with having to leave her home 3 days/week to attend the program. She stated she would prefer to continue to exercise at home on her bike and treadmill. I gave her a brochure for cardiac rehab at [facility] if she changes her mind. * Brief Op Note - Nicholas Diane MD - 03/26/2019 12:25 PM EST Images from the original note were not included. Preliminary Cardiac Catheterization Procedure Note: Patient Name: Narda Rivera : [id number] MR#: [id number] Case Date: 03/26/2019 Vault Attendant: Surgeon(s) and Role: * Nicholas Diane MD - Primary * Isaac Morse MD - Fellow Preoperative diagnosis: Screening for cardiovascular condition [Z13.6]/Abnormal stress test [R94.39] Postoperative diagnosis: * ASCVD * Procedure(s) performed: [facility] Coronary angio Stent insertion, coronary [...] unspecified vessel or lesion type, unspecified whether karuk or transplanted heart HC VENIPUNCTURE STAT 03/26/2019 10:12 AM EST HEMOGRAM STAT 03/26/2019 10:12 AM EST DIFFERENTIAL, AUTOMATED STAT 03/26/2019 10:12 AM EST HC CBC,PLT & AUTO DIFF STAT 03/26/2019 10:12 AM EST JAVA DESIGNER SCAN 03/26/2019 12:00 AM EST documented in this encounter Results * EKG 12 Lead (03/27/2019 7:23 AM EST) Ventricular rate 51 BPM MUSE SYSTEM Atrial Rate 51 BPM MUSE SYSTEM P-R Interval 172 ms MUSE SYSTEM QRS Duration 86 ms MUSE SYSTEM Q-T Interval 512 ms MUSE SYSTEM QTC Calculated (Bezet) 471 ms MUSE SYSTEM Calculated P [place] 32 degrees MUSE SYSTEM Calculated T [place] 23 degrees MUSE SYSTEM INTERPRETATION Sinus bradycardia ST & T wave abnormality, consider anterolateral ischemia Prolonged QT Abnormal ECG When compared with ECG of 26-MAR-2019 12:53, T wave inversion now evident in Lateral leads Confirmed by MD Pacheco, Urban Oakley ([id number]) on 03/28/2019 6:28:13 PM MUSE SYSTEM 03/27/2019 7:23 AM EST 03/28/2019 6:28 PM EST Nicholas Diane MD ECG ORDERABLES MUSE SYSTEM * Differential, Automated (03/27/2019 12:50 AM EST) Neutrophil % 54.5 % [facility] Neutrophil Absolute 3.27 1.70 - 6.10 x10(3)/[facility] Lymph % 32.8 % [facility] Lymphocytes Abs 2.0 0.9 - 3.2 x10(3)/[facility] Monocyte % 9.7 % [facility] Monocyte Abs 0.6 0.3 - 0.9 x10(3)/[facility] Eos % 2.5 % [facility] Eosinophils Abs 0.2 0.0 - 0.4 x10(3)/[facility] Basophil % 0.3 % [facility] Baso Absolute 0.0 0.0 [...] S [facility] [place] [address] * Hemogram (03/27/2019 12:50 AM EST) White [...] MEDICAL CENTER [facility] NRBC% auto 0.0 % [facility] NRBC Absolute 0.000 0.000 - 0.000 x10(3)/mcL [facility] Blood specimen (specimen) 03/27/2019 12:50 AM EST 03/27/2019 1:01 AM EST Narrative Resulting Agency Comment Spec In Lab Isaac Morse MD HEMATOLOGY ORDERABLE S [facility] [place] [address] * Lipid Panel (Reflex Direct LDL) (03/27/2019 12:50 AM EST) Cholesterol, Total 186 mg/dL [facility] Comment: Lower Risk: <200 mg/dL Average Risk: 200-239 mg/dL Higher Risk: >ln=952 mg/dL Triglyceride 165 mg/dL [facility] Comment: Average Risk/Lower Risk: <150 mg/dL Borderline High Risk: 150-199 mg/dL High Risk: 200-499 mg/dL Very High Risk: >xm=419 mg/dL HDL Cholesterol 40 mg/dL [facility] Comment: Males: ?? Higher Risk: <40 mg/dL Females: ?? HIgher Risk: <50 mg/dL LDL Cholesterol 113 mg/dL [facility] Comment: Lowest Risk: <100 mg/dL Lower Risk: 100-129 mg/dL Borderline High Risk: 130-159 mg/dL High Risk: 160-189 mg/dL Very High Risk: >rk=062 mg/dL Cholesterol/HDL Ratio 4.6 ratio [facility] Lipid Interpretation See Note [facility] Comment: Lipid management should be guided by a patient? s ASCVD risk, goals and preferences. ACC/AHA Guidelines recommend high intensity statin if clinical ASCVD or LDL greater than or equal to 190 mg/dL. http://[employer].OG-Vegas/YUY-JJL-Jjqngzbxk Adults aged 40-75 with LDL 70-189 mg/dL should have their 10 year ASCVD risk estimated with the ACC/AHA ASCVD risk inside steward/stewardess http://tools.acc.org/WIYEQ-Regl-Xrjsjqwsi/ Statin should be discussed if risk greater [...] MD CHEMISTRY ORDERABLES Performing Organization Address City/State/[facility] Co de Phone Number [facility] [place] [address] * (ABNORMAL) BMP w/fasting Glucose (03/27/2019 12:50 [...] of Diabetes Mellitus, Position Statement from the [place] [employer]. ??Diabetes Care, Volume 33, Supplement [...] of body mass or the acutely ill. http://[employer]/DHnkf eGFR 104 >=60 mL/min/1. 73 m?? [facility] Comment: The eGFR was calculated using the CKD-EPI equation. As with all creatinine based estimates of kidney function, eGFR values calculated with the CKD-EPI equation are not accurate in patients with acute kidney failure, extremes of body mass or the acutely ill. http://[employer]/DHMCnkf Blood specimen (specimen) 03/27/2019 12:50 AM EST 03/27/2019 1:01 AM EST Narrative Resulting Agency Comment Spec In Lab Nicholas Diane MD CHEMISTRY ORDERABLES [facility] [place] [address] * EKG 12 Lead (03/26/2019 12:53 PM EST) Ventricular rate 61 BPM MUSE SYSTEM Atrial Rate 61 BPM MUSE SYSTEM P-R Interval 168 ms MUSE SYSTEM QRS Duration 92 ms MUSE SYSTEM Q-T Interval 448 ms MUSE SYSTEM QTC Calculated (Bezet) 450 ms MUSE SYSTEM Calculated P [place] 55 degrees MUSE SYSTEM Calculated R [place] -6 degrees MUSE SYSTEM Calculated T [place] 46 degrees MUSE SYSTEM INTERPRETATION Normal sinus rhythm Nonspecific ST and T wave abnormality Abnormal ECG No previous ECGs available Confirmed by Kenji Friend MD ([id number]) on 03/26/2019 3:55:47 PM MUSE SYSTEM 03/26/2019 12:5 3 PM EST 03/26/2019 3:55 PM EST Nicholas Diane MD ECG ORDERABLES MUSE SYSTEM * Differential, Automated (03/26/2019 10:12 AM EST) Neutrophil % 60.7 % [facility] Neutrophil Absolute 2.93 1.70 - 6.10 x10(3)/[facility] Lymph % 27.3 % [facility] Lymphocytes Abs 1.3 0.9 - 3.2 x10(3)/[facility] Monocyte % 8.5 % [facility] Monocyte Abs 0.4 0.3 - 0.9 x10(3)/[facility] Eos % 2.5 % [facility] Eosinophils Abs 0.1 0.0 - 0.4 x10(3)/[facility] Basophil % 0.6 % [facility] Baso Absolute 0.0 0.0 [...] [facility] ORDERABLE S Performing Organization Address City/[facility]/ZIP Co de Phone Number [facility] [place] [address] * Hemogram (03/26/2019 10:12 AM EST) White Blood Cell 4.8 4.0 - 9.5 x10(3)/[facility] Red Blood Cell 5.16 4.00 - 5.21 x10(6)/[facility] Hemoglobin 15.1 11.7 - 15.5 gm/dL [facility] Hematocrit 45.0 35.7 - 45.8 % [facility] Mean Cell Volume 87.2 82.6 - 94.4 [facility] Mean Cell Hemoglobin 29.3 27.1 - 32.0 pg [facility] Mean Cell Hemoglobin Concentration 33.6 31.7 - 35.0 gm/dL [facility] Platelet 253 145 - 357 x10(3)/[facility] RDW Standard Deviation 39.7 37.0 - 46.0 [facility] RDW coefficient of variation 12.4 11.5 - 14.1 % [facility] Mean Platelet Volume 9.4 7.6 - 12.9 [facility] NRBC% auto 0.0 % [facility] NRBC Absolute 0.000 0.000 - 0.000 x10(3)/[facility] Blood specimen (specimen) 03/26/2019 10:12 AM EST 03/26/2019 10:16 AM EST Narrative Resulting Agency Comment Spec In Lab [place] [facility] ORDERABLE S [facility] [place] [address] * (ABNORMAL) BMP w/fasting Glucose (03/26/2019 10:12 AM EST) [facility] Signature Glucose Fasting 108(H) 65 - 99 [...] of Diabetes Mellitus, Position Statement from the [place] [employer]. ??Diabetes Care, Volume 33, Supplement [...] of body mass or the acutely ill. http://[employer] S[employer]/DHnkf eGFR 111 >=60 mL/min/1. 73 m?? [facility] Comment: The eGFR was calculated using the CKD-EPI equation. As with all creatinine based estimates of kidney function, eGFR values calculated with the CKD-EPI equation are not accurate in patients with acute kidney failure, extremes of body mass or the acutely ill. http://Sp[employer] Sensibo/[facility]IDnk[facility] Blood specimen (specimen) 03/26/2019 10:12 AM EST 03/26/2019 10:16 AM EST Narrative Resulting Agency Comment Spec In Lab Nicholas Diane MD CHEMISTRY ORDERABLES [facility] [place] [address] * SCAN DOC: JAVA DESIGNER (03/26/2019 12:00 AM EST) Anatomical Region Laterality [...] unspecified vessel or lesion type, unspecified whether karuk or transplanted heart Screening for cardiovascular condition Screening for other and unspecified cardiovascular conditions Abnormal stress test Other nonspecific abnormal cardiovascular system function study documented in this encounter Admitting Diagnoses Diagnosis CAD (coronary artery disease) Coronary atherosclerosis of unspecified type of vessel, karuk or graft documented in this encounter Administered [...] RN) documented in this encounter Care Teams Sketch Artist Relationship Specialty Start Date End Date Ag Trent MD [address] [place] [address] PCP - General 02/02/14 documented as of this encounter
--- OUTSIDE RECORDS SUMMARY | 2024-05-05 01:51 | XMS_ITS | Encounter Summary ---
Author Organization [facility] Address [facility] [place] [address] Care Team Providers Care Behavioral Analyst Name Role Phone Ag Trent MD Primary Care Provider [phone] Reason for Visit * Reason Onset Date Comments Results 02/28/2016 Encounter Details Date Type Department Care Team (Late st Contact Info) Description 02/28/2016 Telephone Hematology Oncology at [address] [phone] Nataly Real RN Results Social [...] RN - 02/28/2016 11:27 AM EST Received [facility] message from clinical assistant secretary Narda was wondering if she could get the results of her bone scan. Her number is [phone]. Placed call to notify patient. No evidence of bony metastasis. documented in this encounter Plan of Treatment Not on file documented as of this encounter Visit Diagnoses Not on filedocumented in this encounter Care Teams Behavioral Analyst Relationship Specialty Start Date End Date gA Trent MD [address] [place] [address] PCP - General 02/02/14 documented as of this encounter
--- OUTSIDE RECORDS SUMMARY | 2024-05-05 01:51 | XMS_ITS | Encounter Summary ---
Author Organization [facility] [place] [address] Care Team Providers Care Geospatial Scientist Name Role Phone Ag Trent MD Primary Care Provider [phone] Reason for Visit * Auth/Cert Specialty Diagnoses [...] Expiration Date Visits Re quested Visits Authorized [id number] 1 1 Encounter Details Date Type Department Care Team (Latest Contact Info) Description 03/26/2019 9:43 AM EST - 03/27/2019 1:47 PM [facility] [[email or web address] Hospital Encounter [place] [address] Nicholas Diane MD [facility] [address] Screening for cardiovascular condition; Abnormal stress test; Coronary artery disease, angina presence unspecified, unspecified vessel or lesion type, unspecified whether [place] or transplanted heart Discharge Disposition: Home Social [...] Narda Rivera Patient Age: 68 y.o. Language: Mauritanian Race: White Ethnicity: Not nor Admit date: [...] invasion present, SLN 2/2 positive, ER+/ND+, Her-2 unaplified, T2,at least N1a, Mx Treatment:s/p [...] Operations: Procedure(s): CARDIAC CATHETERIZATION CORONARY ANGIOGRAPHY; [facility],POSSIBLE PCI History of Presentation: Narda Rivera??is a [...] 2 times daily. Estrogen suppressant from medical record consultant, takes twice a day Refills: 0 VITAMIN [...] appointments: -During 8am-5pm Friday through Friday call [phone] to speak with a nurse in the cardiology clinic -All other times call [phone] and ask to speak to the parts salesperson fashion buying internship. MEDICATIONS Plavix -you need to be on daily Plavix for at least 6 months and aspirin for lifetime to help prevent clots forming inside of your stent. -do not stop plavix without talking to your house piping inspector -You should be taking a statin [...] Primary care provider: Cardiology: Ag Trent MD [phone] Follow up as planned or as needed. Please schedule an appointment to follow up with your house piping inspector, Dr. Mariee in 3-6 weeks. General Instructions None Discharge References/Attachments None Isaac Morse MD Interventional Cardiology 03/27/19 7:42 AM [facility] Pager: [phone] documented in this encounter Discharge Instructions * Patient Instructions* Isaac Morse - 03/27/2019 7:29 AM EST Discharge Instructions following cardiac catheterization Cardiology Instructions Call your doctor if you experience: Chest pain, dyspnea, pain or swelling in legs occurs. If you have non-emergent questions between now and the time of your follow up appointments: -During 8am-5pm Friday through Friday call [phone] to speak with a nurse in the cardiology clinic -All other times call [phone] and ask to speak to the parts salesperson fashion buying internship. MEDICATIONS Plavix -you need to be on daily Plavix for at least 6 months and aspirin for lifetime to help prevent clots forming inside of your stent. -do not stop plavix without talking to your house piping inspector -You should be taking a statin [...] Primary care provider: Cardiology: Ag Trent MD [phone] Follow up as planned or as needed. Please schedule an appointment to follow up with your house piping inspector, Dr. Mariee in 3-6 weeks. * Attachments The following attachments cannot be sent through Care Everywhere. * PCI (Percutaneous Coronary Intervention): Post-op (Mauritanian) documented in this encounter Medications at Time [...] 2 times daily. Estrogen suppressant from medical record consultant, takes twice a day lamoTRIgine (LAMICTAL) 25 [...] discharged with all belongs. Patient ambulated to [facility] with staff * Maria L Borjas MSW - 03/27/2019 9:17 AM EST BILLING MANAGER contacted [facility] ([facility]) who confirmed pt will be picked up at [facility] today (03/27) at 12:00pm. BILLING MANAGER provided RCT with contact information for self and Short Stay Unit if needed for any additional follow up. Office Of Care Management Float/Weekend Personnel Training Officer JEREMY Caruso Pager [phone] * Kari Barker RN - 03/26/2019 3:01 PM EST Patient Name: Narda Rivera Patient Age: 68 y.o. Birthdate: 1950 Admit date: 03/26/2019 Attending Physician: Nicholas Diane MD Narda Rivera arrived to [facility] 11 @ 1452 from [employer], report received from Julia BUTT. Oriented to [...] invasion present, SLN 2/2 positive, ER+/ND+, Her-2 unaplified, T2,at least N1a, Mx Treatment:s/p [...] 2 times daily. Estrogen suppressant from medical record consultant, takes twice a day ??? lamoTRIgine (LAMICTAL) [...] file Gets together: Not on file Attends rastafari service: Not on file Active member of [...] patient and available family. Nicholas Diane MD, [facility] Attending Web Page Developer Pager [phone] * Isaac Morse - 03/26/2019 10:34 AM [...] 2 times daily. Estrogen suppressant from medical record consultant, takes twice a day ??? lamoTRIgine (LAMICTAL) [...] in an outpatient cardiac rehabilitation program at [facility] was discussed. Patient declined a referral to this program. She expressed concern with having to leave her home 3 days/week to attend the program. She stated she would prefer to continue to exercise at home on her bike and treadmill. I gave her a brochure for cardiac rehab at [facility] if she changes her mind. * Brief Op Note - Nicholas Diane MD - 03/26/2019 12:25 PM EST Images from the original note were not included. Preliminary Cardiac Catheterization Procedure Note: Patient Name: Narda Rivera : [id number] MR#: [id number] Case Date: 03/26/2019 Tuckpointer Cleaner Caulker: Surgeon(s) and Role: * Nicholas Diane MD - Primary * Isaac Morse MD - Fellow Preoperative diagnosis: Screening for cardiovascular condition [Z13.6]/Abnormal stress test [R94.39] Postoperative diagnosis: * ASCVD * Procedure(s) performed: [facility] Coronary angio Stent insertion, coronary [...] unspecified vessel or lesion type, unspecified whether [place] or transplanted heart HC VENIPUNCTURE STAT 03/26/2019 10:12 AM EST HEMOGRAM STAT 03/26/2019 10:12 AM EST DIFFERENTIAL, AUTOMATED STAT 03/26/2019 10:12 AM EST HC CBC,PLT & AUTO DIFF STAT 03/26/2019 10:12 AM EST SENIOR UI UX DEVELOPER SCAN 03/26/2019 12:00 AM EST documented in this encounter Results * EKG 12 Lead (03/27/2019 7:23 AM EST) Ventricular rate 51 BPM MUSE SYSTEM Atrial Rate 51 BPM MUSE SYSTEM P-R Interval 172 ms MUSE SYSTEM QRS Duration 86 ms MUSE SYSTEM Q-T Interval 512 ms MUSE SYSTEM QTC Calculated (Bezet) 471 ms MUSE SYSTEM Calculated P Sutherlin 32 degrees MUSE SYSTEM Calculated T Sutherlin 23 degrees MUSE SYSTEM INTERPRETATION Sinus bradycardia ST & T wave abnormality, consider anterolateral ischemia Prolonged QT Abnormal ECG When compared with ECG of 26-MAR-2019 12:53, T wave inversion now evident in Lateral leads Confirmed by MD Pacheco, Urban Oakley ([id number]) on 03/28/2019 6:28:13 PM MUSE SYSTEM 03/27/2019 7:23 AM EST 03/28/2019 6:28 PM EST Nicholas Diane MD ECG ORDERABLES MUSE SYSTEM * Differential, Automated (03/27/2019 12:50 AM EST) Neutrophil % 54.5 % [facility] Neutrophil Absolute 3.27 1.70 - 6.10 x10(3)/[facility] Lymph % 32.8 % [facility] Lymphocytes Abs 2.0 0.9 - 3.2 x10(3)/[facility] Monocyte % 9.7 % [facility] Monocyte Abs 0.6 0.3 - 0.9 x10(3)/[facility] Eos % 2.5 % [facility] Eosinophils Abs 0.2 0.0 - 0.4 x10(3)/[facility] Basophil % 0.3 % [facility] Baso Absolute 0.0 0.0 - 0.1 x10(3)/[facility] Immature Gran % 0.20 % [facility] Comment: Immature granulocytes(IG's)percentage and absolute count will include metamyelocytes, myelocytes, and promyelocytes. Blood smears from CBCs yielding IG's will be scanned manually for concordance. If this scan disagrees with the automated IG or if promyelocytes are noted, a manual differential will be performed. Immature Gran Absolute 0.01 0.00 - 0.04 x10(3)/[facility] Blood specimen (specimen) 03/27/2019 12:50 AM EST 03/27/2019 1:01 AM EST Narrative Resulting Agency Comment Spec In Lab Isaac Morse MD HEMATOLOGY ORDERABLE S Performing Organization Address City/State/[facility] Co de Phone Number [facility] [place] [address] * Hemogram (03/27/2019 12:50 AM EST) White Blood Cell 6.0 4.0 - 9.5 x10(3)/[facility] Red Blood Cell 4.73 4.00 - 5.21 x10(6)/[facility] Hemoglobin 14.0 11.7 - 15.5 gm/dL [facility] Hematocrit 40.5 35.7 - 45.8 % [facility] Mean Cell Volume 85.6 82.6 - 94.4 fL [facility] Mean Cell Hemoglobin 29.6 27.1 - 32.0 pg [facility] Mean Cell Hemoglobin Concentration 34.6 31.7 - 35.0 gm/dL [facility] Platelet 250 145 - 357 x10(3)/[facility] RDW Standard Deviation 38.3 37.0 - 46.0 fL [facility] RDW coefficient of variation 12.2 11.5 - 14.1 % [facility] Mean Platelet Volume 9.5 7.6 - 12.9 fL [facility] NRBC% auto 0.0 % [facility] NRBC Absolute 0.000 0.000 - 0.000 x10(3)/[facility] Blood specimen (specimen) 03/27/2019 12:50 AM EST 03/27/2019 1:01 AM EST Narrative Resulting Agency Comment Spec In Lab Isaac Morse MD HEMATOLOGY ORDERABLE S Performing Organization Address City/State/[facility] Co de Phone Number [facility] [place] [address] * Lipid Panel (Reflex Direct LDL) (03/27/2019 12:50 AM EST) Cholesterol, Total 186 mg/dL [facility] Comment: Lower Risk: <200 mg/dL Average Risk: 200-239 mg/dL Higher Risk: >kc=517 mg/dL Triglyceride 165 mg/dL [facility] Comment: Average Risk/Lower Risk: <150 mg/dL Borderline High Risk: 150-199 mg/dL High Risk: 200-499 mg/dL Very High Risk: >vb=267 mg/dL HDL Cholesterol 40 mg/dL [facility] Comment: Males: ?? Higher Risk: <40 mg/dL Females: ?? HIgher Risk: <50 mg/dL LDL Cholesterol 113 mg/dL [facility] Comment: Lowest Risk: <100 mg/dL Lower Risk: 100-129 mg/dL Borderline High Risk: 130-159 mg/dL High Risk: 160-189 mg/dL Very High Risk: >dz=200 mg/dL Cholesterol/HDL Ratio 4.6 ratio [facility] Lipid Interpretation See Note [facility] Comment: Lipid management should be guided by a patient? s ASCVD risk, goals and preferences. ACC/AHA Guidelines recommend high intensity statin if clinical ASCVD or LDL greater than or equal to 190 mg/dL. http://XIPWIRE.com/FUW-KCP-Xlrrbzpqp Adults aged 40-75 with LDL 70-189 mg/dL should have their 10 year ASCVD risk estimated with the ACC/AHA ASCVD risk commercial estimator http://tools.acc.org/ORYEG-Xnyq-Nyvffgnxv/ Statin should be discussed if risk greater [...] Diane MD CHEMISTRY ORDERABLES Performing Organization Address City/State/[facility] Co de Phone Number [facility] [place] [address] * (ABNORMAL) BMP w/fasting Glucose (03/27/2019 12:50 [...] of Diabetes Mellitus, Position Statement from the [place] Diabetes Association. ??Diabetes Care, Volume 33, Supplement [...] of body mass or the acutely ill. http://NationalField/[facility] eGFR 104 >=60 mL/min/1. 73 m?? [facility] Comment: The eGFR was calculated using the CKD-EPI equation. As with all creatinine based estimates of kidney function, eGFR values calculated with the CKD-EPI equation are not accurate in patients with acute kidney failure, extremes of body mass or the acutely ill. http://NationalField/[facility] Blood specimen (specimen) 03/27/2019 12:50 AM EST 03/27/2019 1:01 AM EST Narrative Resulting Agency Comment Spec In Lab Nicholas Diane MD CHEMISTRY ORDERABLES [facility] [place] [address] * EKG 12 Lead (03/26/2019 12:53 PM EST) Ventricular rate 61 BPM MUSE SYSTEM Atrial Rate 61 BPM MUSE SYSTEM P-R Interval 168 ms MUSE SYSTEM QRS Duration 92 ms MUSE SYSTEM Q-T Interval 448 ms MUSE SYSTEM QTC Calculated (Bezet) 450 ms MUSE SYSTEM Calculated P Sutherlin 55 degrees MUSE SYSTEM Calculated R Sutherlin -6 degrees MUSE SYSTEM Calculated T Suther[place] 46 degrees MUSE SYSTEM INTERPRETATION Normal sinus rhythm Nonspecific ST and T wave abnormality Abnormal ECG No previous ECGs available Confirmed by Kenji Friend MD ([id number]) on 03/26/2019 3:55:47 PM MUSE SYSTEM 03/26/2019 12:5 3 PM EST 03/26/2019 3:55 PM EST Nicholas Diane MD ECG ORDERABLES MUSE SYSTEM * Differential, Automated (03/26/2019 10:12 AM EST) Pathologist [facility] Neutrophil % 60.7 % [facility] Neutrophil Absolute 2.93 1.70 - 6.10 x10(3)/[facility] Lymph % 27.3 % [facility] Lymphocytes Abs 1.3 0.9 - 3.2 x10(3)/[facility] Monocyte % 8.5 % [facility] Monocyte Abs 0.4 0.3 - 0.9 x10(3)/[facility] Eos % 2.5 % [facility] Eosinophils Abs 0.1 0.0 - 0.4 x10(3)/[facility] Basophil % 0.6 % [facility] Baso Absolute 0.0 0.0 - 0.1 x10(3)/[facility] Immature Gran % 0.40 % [facility] Comment: Immature granulocytes(IG's)percentage and absolute count will include metamyelocytes, myelocytes, and promyelocytes. Blood smears from CBCs yielding IG's will be scanned manually for concordance. If this scan disagrees with the automated IG or if promyelocytes are noted, a manual differential will be performed. Immature Gran Absolute 0.02 0.00 - 0.04 x10(3)/[facility] Blood specimen (specimen) 03/26/2019 10:12 AM EST 03/26/2019 10:16 AM EST Narrative Resulting Agency Comment Spec In Lab Carroll CONKLIN HEMATOLOGY ORDERABLE S [facility] [place] [address] * Hemogram (03/26/2019 10:12 AM EST) White Blood Cell 4.8 4.0 - 9.5 x10(3)/[facility] Red Blood Cell 5.16 4.00 - 5.21 x10(6)/[facility] Hemoglobin 15.1 11.7 - 15.5 gm/dL [facility] Hematocrit 45.0 35.7 - 45.8 % [facility] Mean Cell Volume 87.2 82.6 - 94.4 fL [facility] Mean Cell Hemoglobin 29.3 27.1 - 32.0 pg [facility] Mean Cell Hemoglobin Concentration 33.6 31.7 - 35.0 gm/dL [facility] Platelet 253 145 - 357 x10(3)/[facility] RDW Standard Deviation 39.7 37.0 - 46.0 fL [facility] RDW coefficient of variation 12.4 11.5 - 14.1 % [facility] Mean Platelet Volume 9.4 7.6 - 12.9 fL [facility] NRBC% auto 0.0 % [facility] NRBC Absolute 0.000 0.000 - 0.000 x10(3)/[facility] Blood specimen (specimen) 03/26/2019 10:12 AM EST 03/26/2019 10:16 AM EST Narrative Resulting Agency Comment Spec In Lab Carroll CONKLIN HEMATOLOGY ORDERABLE S [facility] [place] [address] * (ABNORMAL) BMP w/fasting Glucose (03/26/2019 10:12 [...] of Diabetes Mellitus, Position Statement from the [place] Diabetes Association. ??Diabetes Care, Volume 33, Supplement [...] of body mass or the acutely ill. http://NationalField/[facility] eGFR 111 >=60 mL/min/1. 73 m?? [facility] Comment: The eGFR was calculated using the CKD-EPI equation. As with all creatinine based estimates of kidney function, eGFR values calculated with the CKD-EPI equation are not accurate in patients with acute kidney failure, extremes of body mass or the acutely ill. http://NationalField/[facility] Blood specimen (specimen) 03/26/2019 10:12 AM EST 03/26/2019 10:16 AM EST Narrative Resulting Agency Comment Spec In Lab Nicholas Diane MD CHEMISTRY ORDERABLES [facility] [place] [id number] * SCAN DOC: SENIOR UI UX DEVELOPER (03/26/2019 12:00 AM EST) Anatomical Region Laterality [...] unspecified vessel or lesion type, unspecified whether [place] or transplanted heart CAD (coronary artery disease) Coronary atherosclerosis of unspecified type of vessel, [place] or graft documented in this encounter Admitting Diagnoses Diagnosis CAD (coronary artery disease) Coronary atherosclerosis of unspecified type of vessel, [place] or graft documented in this encounter Administered [...] RN) documented in this encounter Care Teams Geospatial Scientist Relationship Specialty Start Date End Date Ag Trent MD [address] [place] [address] PCP - General 02/02/14 documented as of this encounter
--- OUTSIDE RECORDS SUMMARY | 2024-05-05 01:51 | XMS_ITS | Encounter Summary ---
Author Organization [facility] Address [facility] [place] [address] Care Team Providers Care Log Sorter Name Role Phone Ag Trent MD Primary Care Provider [phone] Reason for Visit * Reason Comments Radiation Follow-up breast cancer Encounter Details Date Type Department Care Team (Late st Contact Info) Description 11/20/2017 10:30 AM EDT Office Visit Radiation Oncology at [address] [phone] Haley Robles, VENDING MACHINE FILLER Malignant neoplasm of left breast in female, [...] this encounter Progress Notes * Haley Robles, VENDING MACHINE FILLER - 11/20/2017 10:30 AM EDT Images from the original note were not included. Patient ID: Narda Rivera is a 67 y.o. female.breast ca, L, IDC w/lobular features, high gr, ER+AL+, Pvz1xcy-, s/p lumpectomy & SNB, pT2 pN1a, stage [...] ca w/ductal & lobular features. LVI present. ER+AL+. Kuo1jzj IHC neg. ?? 02/08/14 B breast MRI: [...] = 0.6 - 0.8 cm; pT2 pN1a. Wbr2zma FISH neg. Comment: Multiple satellite foci of [...] (NEULASTA) SubQ 6 mg ONCN ONCOLOGY (AMB) 05/24/2014 05/31/2014 Day, Cycle Day 1, Cycle 1 Day 8, Cycle 1 cyclophosphamide (CYTOXAN) IV DOXOrubicin (ADRIAMYCIN) IV PACLitaxel (TAXOL) IV 80 mg/m2/dose = 154 mg 80 mg/m2/dose = 154 mg pegfilgrastim (NEULASTA) SubQ ONCN ONCOLOGY (AMB) 06/07/2014 06/14/2014 Day, Cycle Day [...] 154 mg pegfilgrastim (NEULASTA) Sub ONCN ONCOLOGY (AMB) 07/05/2014 07/12/2014 Day, Cycle Day 1, Cycle 3 Day 8, Cycle 3 cyclophosphamide (CYTOXAN) IV DOXOrubicin (ADRIAMYCIN) IV PACLitaxel (TAXOL) IV 80 mg/m2/dose = 154 mg 80 mg/m2/dose = 154 mg pegfilgrastim (NEULASTA) SubQ ONCBCN ONCOLOGY (AMB) 07/19/2014 07/26/2014 Day, Cycle Day 15, Cycle 3 Day 1, Cycle 4 cyclophosphamide (CYTOXAN) IV DOXOrubicin (ADRIAMYCIN) IV PACLitaxel (TAXOL) IV 80 mg/m2/dose = 154 mg 80 mg/m2/dose = 154 mg pegfilgrastim (NEULASTA) Sub ONCBCN ONCOLOGY (AMB) 08/02/2014 08/09/2014 Day, Cycle [...] Surgery Lumpectomy done by Dr Cohen at [facility] Axillary Management [place] nodes alone--2+ of 2 sentinel nodes removed. [...] High grade Margin negative ER--estrogen receptor positive [place]--progesterone receptor positive HER-2/FISH negative Adjuvant Chemotherapy Start [...] NODE(S) performed by Ibrahima Cohen MD at [facility] OR ??? PRO IDENTIFY SENTINEL NODE Left 02/22/2014 SENTINEL NODE INJECTION performed by Ibrahima Cohen MD at [facility] ??? PRO MASTECTOMY, PARTIAL Left 02/22/2014 MASTECTOMY PARTIAL performed by Ibrahima Cohen MD at [facility] Allergies Allergen Reactions ??? [...] She has utilized the SHIP services at [facility] and referred her back to there to speak with her contact. ??Advance Directives: pt has completed her advance directive. Per her requested obtained a copy from [facility]. Pt reviewed the document and indicated she wants to make changes. She [facility] [place] advance directive booklet/form by SURGICAL BRACE MAKER and patient is to review and complete. Utilization of Community Resources: [facility] services. Pt receives her primary care at the [facility]. Pt agreeable to participate in the [place] Oncology Project. Discussed project and provided her with the brochure. SEAN Galeano RN, [facility] and informed her pt willing to participate. [...] Visit from 11/20/2017 in Radiation Oncology at [facility] Weight 83.6 kg (184 lb 3.2 oz) [...] ca, L, IDC w/lobular features, high gr, ER+AL+, Zgm2dcx-, s/p lumpectomy & SNB, pT2 pN1a, stage [...] breast documented in this encounter Care Teams Log Sorter Relationship Specialty Start Date End Date Ag Trent MD [address] [place] [address] PCP - General 02/02/14 documented as of this encounter
--- OUTSIDE RECORDS SUMMARY | 2024-05-05 01:51 | XMS_ITS | Encounter Summary ---
Author Organization [facility] Address [facility] [place] [address] Care Team Providers Care Research Nutritionist Name Role Phone Ag Trent MD Primary Care Provider [phone] Encounter Details Date Type Department Care Team (Late st Contact Info) Description 04/25/2020 3:30 PM EST Office Visit Hematology/Oncology at [address] [phone] Kirill Saavedra MD [facility] [address] [place] [address] Kendy Su APRN [facility] [place] [address] Malignant neoplasm of left breast in female, [...] in this encounter Progress Notes * Kendy Su, DRYWALL CARRIER - 04/25/2020 3:30 PM EST Subjective: Patient ID: Narda Rivera is a 69 y.o. female. 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 06/2014 switched from Arimidex to [...] Surgery Lumpectomy done by Dr Cohen at [facility] Axillary Management [place] nodes alone--2+ of 2 sentinel nodes removed. [...] High grade Margin negative ER--estrogen receptor positive [place]--progesterone receptor positive HER-2/FISH negative Adjuvant Chemotherapy Start [...] infiltrating ductal and lobular carcinoma, ER positive, [id number]. MRI was then performed that showed the mass with multiple small satellites around it. Mrs. Rivera underwent left partial mastectomy and sentinel lymph node biopsy on February 23, 2014. Postoperative course was uneventful. she completed radiation on (taken from Stephany Guadalupe's note 04/10/18). Interval History(04/25/20): Narda returns to the [facility] today for breast cancer followup. We haven't seen Narda since December 2018. Since seeing her last she tells me she had 2 stents done. She is complaining today of an area of pain in her upper left CW right at the edge of breast tissue. She saw her instrument designer and was told it is not cardiac. [...] ca, L, IDC w/lobular features, high gr, ER+[place]+, Vzt4phd-, s/p lumpectomy & SNB, pT2 pN1a, stage [...] in the same place. She states her instrument designer told her it was not cardiac. There [...] questions/concerns or new symptoms. Kendy Su MSN, DRYWALL CARRIER, AOCNP Medical Oncology Over 30 minutes was [...] positive documented in this encounter Care Teams Research Nutritionist Relationship Specialty Start Date End Date Ag Trent MD [address] [place] [address] PCP - General 02/02/14 documented as of this encounter
--- OUTSIDE RECORDS SUMMARY | 2024-05-05 01:51 | XMS_ITS | Encounter Summary ---
Author Organization [facility] Address [facility] [place] [address] Care Team Providers Care Reactor Operator Name Role Phone Ag Trent MD Primary Care Provider [phone] Encounter Details Date Type Department Care Team (Latest Contact Info) Description 05/28/2017 10:15 AM EST - 05/28/2017 11:59 PM [facility] Hospital [place] [phone] Ibrahima Cohen MD [facility] [place] [address] Malignant neoplasm of left female breast Discharge [...] No mammographic evidence of malignancy. RECOMMENDATION: [employer] [...] site documented in this encounter Care Teams Reactor Operator Relationship Specialty Start Date End Date Ag Trent MD [address] [place] [address] PCP - General 02/02/14 documented as of this encounter
--- OUTSIDE RECORDS SUMMARY | 2024-05-05 01:51 | XMS_ITS | Encounter Summary ---
Author Organization [facility] Address [facility] [place] [address] Care Team Providers Care Leather Goods Sales Representative Name Role Phone Ag Trent MD Primary Care Provider [phone] Encounter Details Date Type Department Care Team (Late st Contact Info) Description 01/14/2017 3:30 PM EDT Office Visit Hematology/Oncology at [address] [phone] Kirill Saavedra MD [facility] [address] [place] [address] Personal history of breast cancer; Osteopenia, unspecified [...] infiltrating ductal and lobular carcinoma, ER positive, [id number]. MRI was then performed that showed the [...] ER/[place]/HER2: ER/[place]/Her2 Comment: Please see prior biopsy [id number]. HER2 FISH will be repeated on this [...] Otherwise, she feels well... She will have [facility] BURLER evaluation in [facility]. Will continue I'll see her back in [...] location documented in this encounter Care Teams Leather Goods Sales Representative Relationship Specialty Start Date End Date Ag Trent MD [address] [place] [address] PCP - General 02/02/14 documented as of this encounter
--- OUTSIDE RECORDS SUMMARY | 2024-05-05 01:51 | XMS_ITS | Encounter Summary ---
Author Organization [facility] Address [facility] [place] [address] Care Team Providers Care Franchise Business Consultant Name Role Phone Ag Trent MD Primary Care Provider Encounter Details Date Type Department Care Team (Late st Contact Info) Description 05/09/2020 Orders Only Hematology/Oncology at [address] [phone] Kendy Su APRN [facility] [place] [address] Social History Tobacco Use Types Packs/Day Years [...] on filedocumented in this encounter Care Teams Franchise Business Consultant Relationship Specialty Start Date End Date Ag Trent MD [address] [place] [address] PCP - General 02/02/14 documented as of this encounter
--- OUTSIDE RECORDS SUMMARY | 2024-05-05 01:51 | XMS_ITS | Encounter Summary ---
Author Organization [facility] Address [facility] [place] [address] Care Team Providers Care Senior Embedded Software Engineer Name Role Phone Ag Trent MD Primary Care Provider [phone] Reason for Referral * Consultation (Routine) - Specialty Diagnoses / Procedures Referred By Sary kee Referred To Contact Gynecology Diagnoses Personal history of breast cancer Kirill Saavedra MD [facility] [address] [place] [address] Referral ID Status Reason Start Date Expiration Date V isits Requested Visits Authorized [id number] Consult, Test & Treat 02/13/2016 08/11/2016 1 1 Reason for Visit * Reason Comments Follow-up Encounter Details Date Type Department Care Team (Late st Contact Info) Description 02/13/2016 3:00 PM EST Office Visit Hematology/Oncology at [address] [phone] Kirill Saavedra MD [facility] DR [place] [address] Malignant neoplasm of left female breast, unspecified [...] features, lymphovascular invasion present, SLN 2/2 positive, ER+/DC+, Her-2 unaplified. Subjective:I feel fine HPI: Ms. Narda Rivera is 65 y.o. female Referred to us for consultation by Dr. Cohen on new diagnosis of breast cancer. She initially presenteda mass in her upper outer left breast with calcificationson a screening mammogram in December 2013.The main mass wasbiopsied showing infiltrating ductal and lobular carcinoma, ER positive, [id number]. MRI was then performed that showed the [...] features, lymphovascular invasion present, SLN 2/2 positive, ER+/DC+, Her-2 unaplified, T2,at least N1a, Mx Treatment:s/p [...] in right breast. Examination [facility] [place] [facility]: Regular rate and rhythm, [...] count: Mitotic count: Score = 3 Total Dragoon Score: Khalif Grade III: 8-9 points DCIS: [...] slide reconstruction) MICROCALCIFICATIONS: Present in nonneoplastic tissue ER/DC/HER2: ER/DC/Her2 Comment: Please see prior biopsy [id number]. HER2 FISH will be repeated on this [...] cancer cells with immunostaining) Stain Intensity: Strong DC immunoreactivity: Positive (11-90% cancer cells with immunostaining) Stain Intensity: Strong NEGATIVE FOR HER2/DEL AMPLIFICATION Labs: Sodium 140, potassium 3.5, BUN 16, creatinine 0.49, [place] 9.4, total bilirubin 0.3, AST 16,ALT [...] features, lymphovascular invasion present, SLN 2/2 positive, ER+/DC+, Her-2 unaplified, T2,at least N1a, Mx Treatment:s/p [...] Bone scan within next 2-3 weeks 4. ORDERING MACHINE OPERATOR consult 5. Next visit with CMP in [...] Associated Diagnoses Orde r Schedule Referral to Ob-Sql Database Developer Outpatient Referral Routine Personal history of [...] chronicity documented in this encounter Care Teams Senior Embedded Software Engineer Relationship Specialty Start Date End Date Ag Trent MD [address] [place] [address] PCP - General 02/02/14 documented as of this encounter
--- OUTSIDE RECORDS SUMMARY | 2024-05-05 01:51 | XMS_ITS | Encounter Summary ---
Author Organization [facility] [place] [address] Care Team Providers Care Founder Ceo & President Name Role Phone Ag Trent MD Primary Care Provider [phone] Encounter Details Date Type Department Care Team (Late st Contact Info) Description 08/20/2019 Telephone Hematology/Oncology at [address] [phone] Monika Stephenson Social History Tobacco [...] on filedocumented in this encounter Care Teams Founder Ceo & President Relationship Specialty Start Date End Date Ag Trent MD [address] [place] [address] PCP - General 02/02/14 documented as of this encounter
--- OUTSIDE RECORDS SUMMARY | 2024-05-05 01:51 | XMS_ITS | Encounter Summary ---
Author Organization [facility] Address [facility] [place] [address] Care Team Providers Care Assistant Restaurant General Manager Name Role Phone Ag Trent MD Primary Care Provider [phone] Encounter Details Date Type Department Care Team (Late st Contact Info) Description 03/16/2019 Ancillary Procedure Radiology Library at [facility] [place] [phone] Ag Trent MD [address] [place] [address] Social History Tobacco Use Types [...] IMG FILM LIBRARY ORD ERABLES [place] documented in this encounter Visit Diagnoses Not on filedocumented in this encounter Care Teams Assistant Restaurant General Manager Relationship Specialty Start Date End Date Ag Trent MD [address] [place] [address] PCP - General 02/02/14 documented as of this encounter
--- OUTSIDE RECORDS SUMMARY | 2024-05-05 01:51 | XMS_ITS | Encounter Summary ---
Author Organization [facility] Address [facility] [place] [address] Care Team Providers Care Baggage Security Checker Name Role Phone Ag Trent MD Primary Care Provider [phone] Reason for Visit * Reason Comments Follow-up Encounter Details Date Type Department Care Team (Late st Contact Info) Description 05/28/2017 11:15 AM EST Office Visit Hematology [place] [phone] Shane Copeland MD [facility] [place] [address] Malignant neoplasm of left breast in female, [...] Center. BIRADS CATEGORY 2: BENIGN FINDINGS [employer] and The [...] breast documented in this encounter Care Teams Baggage Security Checker Relationship Specialty Start Date End Date Ag Trent MD [address] [place] [address] PCP - General 02/02/14 documented as of this encounter
--- OUTSIDE RECORDS SUMMARY | 2024-05-05 01:51 | XMS_ITS | Encounter Summary ---
Author Organization [facility] Address [facility] [place] [address] Care Team Providers Care Auto Inspection Specialist Name Role Phone Ag Trent MD Primary Care Provider [phone] Encounter Details Date Type Department Care Team (Late st Contact Info) Description 05/14/2018 2:00 PM EST Office [place] [address] Susan Jaimes, INSTRUCTOR PHYSICAL History of breast cancer Social History Tobacco [...] of this encounter Progress Notes * Susan Jaimes APRN - 05/14/2018 2:00 PM EST Narda Rivera [...] breast documented in this encounter Care Teams Auto Inspection Specialist Relationship Specialty Start Date End Date Ag Trent MD [address] [place] [address] PCP - General 02/02/14 documented as of this encounter
--- OUTSIDE RECORDS SUMMARY | 2024-05-05 01:51 | XMS_ITS | Encounter Summary ---
Author Organization [facility] [place] [address] Care Team Providers Care Aircraft Parts Assembler Name Role Phone Ag Trent MD Primary Care Provider [phone] Encounter Details Date Type Department Care Team (Late st Contact Info) Description 07/13/2015 Orders Only Hematology/Oncology at [address] [phone] Nataly Real I RN Malignant neoplasm of [...] breast documented in this encounter Care Teams Aircraft Parts Assembler Relationship Specialty Start Date End Date Ag Trent MD [address] [place] [address] PCP - General 02/02/14 documented as of this encounter
--- OUTSIDE RECORDS SUMMARY | 2024-05-05 01:51 | XMS_ITS | Encounter Summary ---
Author Organization [facility] Address [facility] [place] [address] Care Team Providers Care Capital Project Engineer Name Role Phone Ag Trent MD Primary Care Provider [phone] Encounter Details Date Type Department Care Team (Late st Contact Info) Description 08/12/2017 2:00 PM EDT Office Visit Hematology/Oncology at [address] [phone] Kirill Saavedra MD [facility] [address] [place] [address] Personal history of breast cancer; Osteopenia, unspecified [...] features, lymphovascular invasion present, SLN 2/2 positive, ER+/MT+, Her-2 unaplified. Subjective:I feel fine HPI: Ms. Narda Rivera is 66 y.o. female Referred to us for consultation by Dr. Cohen on new diagnosis of breast cancer. She initially presenteda mass in her upper outer left breast with calcificationson a screening mammogram in December 2013.The main mass wasbiopsied showing infiltrating ductal and lobular carcinoma, ER positive, [id number]. MRI was then performed that showed the [...] features, lymphovascular invasion present, SLN 2/2 positive, ER+/MT+, Her-2 unaplified, T2,at least N1a, Mx Treatment:s/p [...] count: Mitotic count: Score = 3 Total Peterson Score: Peterson Grade III: 8-9 points DCIS: Ductal Carcinoma [...] slide reconstruction) MICROCALCIFICATIONS: Present in nonneoplastic tissue ER/MT/HER2: ER/MT/Her2 Comment: Please see prior biopsy [id number]. HER2 FISH will be repeated on this [...] cancer cells with immunostaining) Stain Intensity: Strong MT immunoreactivity: Positive (11-90% cancer cells with immunostaining) [...] features, lymphovascular invasion present, SLN 2/2 positive, ER+/MT+, Her-2 unaplified, T2,at least N1a, Mx Treatment:s/p [...] location documented in this encounter Care Teams Capital Project Engineer Relationship Specialty Start Date End Date Ag Trent MD [address] [place] [address] PCP - General 02/02/14 documented as of this encounter
--- OUTSIDE RECORDS SUMMARY | 2024-05-05 01:51 | XMS_ITS | Encounter Summary ---
Author Organization [facility] Address [facility] [place] [address] Care Team Providers Care Compound Filler Name Role Phone Ag Trent MD Primary Care Provider [phone] Reason for Visit * Reason Comments Follow-up Encounter Details Date Type Department Care Team (Late st Contact Info) Description 06/18/2016 1:30 PM EDT Office Visit Hematology/Oncology at [address] [phone] Kirill Saavedra MD [facility] DR [place] [address] Personal history of breast cancer Social History [...] infiltrating ductal and lobular carcinoma, ER positive, [id number]. MRI was then performed that showed the [...] count: Score = 3 Total Khalif Score: [place] Grade III: 8-9 points DCIS: Ductal Carcinoma [...] ER/[place]/HER2: ER/[place]/Her2 Comment: Please see prior biopsy [id number]. HER2 FISH will be repeated on this [...] 139, potassium 3.6, BUN 17, creatinine 0.54, [place] 9.1, total bilirubin 0.13, AST 13, ALT [...] Mrs. Rivera tolerated tamoxifen well. She had TIGHT ROPE WALKER evaluation. I'll see her back in 3 [...] breast documented in this encounter Care Teams Compound Filler Relationship Specialty Start Date End Date Ag Trent MD [address] [place] [address] PCP - General 02/02/14 documented as of this encounter
--- OUTSIDE RECORDS SUMMARY | 2024-05-05 01:51 | XMS_ITS | Encounter Summary ---
Author Organization [place] [address] Care Team Providers Care Oil Dispenser Name Role Phone Ag Trent MD Primary Care Provider [phone] Encounter Details Date Type Department Care Team (Late st Contact Info) Description 04/28/2020 Orders Only Hematology/Oncology at [address] [phone] Kendy Su APRN [facility] [place] [address] Malignant neoplasm of left breast in female, [...] mammogram documented in this encounter Care Teams Oil Dispenser Relationship Specialty Start Date End Date Ag Trent MD [address] [place] [address] PCP - General 02/02/14 documented as of this encounter
--- OUTSIDE RECORDS SUMMARY | 2024-05-05 01:51 | XMS_ITS | Encounter Summary ---
Author Organization [facility] Address [facility] [place] [address] Care Team Providers Care Social Media Intern Name Role Phone Ag Trent MD Primary Care Provider [phone] Encounter Details Date Type Department Care Team (Latest Contact Info) Description 05/19/2020 4:45 PM EST Ancillary Procedure Radiology Library [place] [address] Kendy Su MANAGER STRATEGIC DEVELOPMENT [facility] [place] [place] [address] Breast mass, left Social History Tobacco Use [...] the care of this patient. STUDIES FROM: [facility] DATES: 05/19/2020 mammogram and ultrasound CLINICAL HISTORY: Left breast spiculated hypoechoic mass 12 o'clock, CAT 4, [place] [facility] ? [place], ? BX; What Modality is the exam? Mammography; Body Part (please add comments as necessary): Breast; Sending Institution [facility]; Date of exam [id number]; I believe [...] breast ultrasound: Please note: Breast ultrasound is washroom operator dependent. Complete assessment of the breast [...] Negative Please note: The interpretation of the [facility] Breast Imaging Radiologist subspecialist may differ from the original radiologist's interpretation. This is usually not due to a deficiency of the original interpreting radiologist, rather due to the greater skill level afforded by sub-specialization in the field and/or reasonable variations in interpretations. If you have a concern regarding the D-H interpretation you may contact the D Breast Supervisor Malted Milk Office at . Thank you for letting [...] Negative Please note: The interpretation of the [facility] Breast Imaging Radiologist subspecialist may differ from the original radiologist's interpretation. This is usually not due to a deficiency of the original interpreting radiologist, rather due to the greater skill level afforded by sub-specialization in the field and/or reasonable variations in interpretations. If you have a concern regarding the D-H interpretation you may contact the D-H Breast Supervisor Malted Milk Office at . Thank you for letting [...] the care of this patient. STUDIES FROM: [facility] DATES: 05/19/2020 mammogram and ultrasound CLINICAL HISTORY: Left breast spiculated hypoechoic mass 12 o'clock, CAT 4, [place] [facility] ? [place], ? BX; What Modality is the exam? Mammography; Body Part (please add comments as necessary): Breast; Sending Institution [facility]; Date of exam 20200519; I believe [...] breast ultrasound: Please note: Breast ultrasound is washroom operator dependent. Complete assessment of the breast [...] alter the care ofthis patient. STUDIES FROM: [facility] DATES: 05/19/2020 mammogram and ultrasound CLINICAL HISTORY: Left breast spiculated hypoechoic mass 12 o'clock, CAT4, [place] like [place] [facility] ? more imaging, ? BX; What Modality is theexam? Mammography; Body Part (please add comments as necessary): Breast;Sending Institution [facility]; Date of exam 20200519; I believe [...] and microlobulated indistinct margins at the left :00 radian 15 cm from the nipple. This [...] Negative Please note: The interpretation of the [facility] BreastImaging Radiologist subspecialist may differ from the original radiologist's interpretation. This is usually not due to a deficiency of the original interpreting radiologist, rather due to the greater skill level affordedby sub-specialization in the field and/or reasonable variations ininterpretations. If you have a concern regarding the D[facility] interpretation [facility] Supervisor Malted Milk [facility] at . Thank you for letting us participate in the care of this patient. Forquestions regarding this report, please contact the number below. Kendy Su APRN IMG OUTSIDE INTERPRE TATION ORDERABLES documented in this encounter Visit Diagnoses Diagnosis Breast mass, left Lump or mass in breast documented in this encounter Care Teams Social Media Intern Relationship Specialty Start Date End Date Ag Trent MD [address] [place] [address] PCP - General 02/02/14 documented as of this encounter
--- OUTSIDE RECORDS SUMMARY | 2024-05-05 01:51 | XMS_ITS | Encounter Summary ---
Author Organization [facility] [place] [address] Care Team Providers Care Pediatric Cns Name Role Phone Ag Trent MD Primary Care Provider [phone] Encounter Details Date Type Department Care Team (Late st Contact Info) Description 04/10/2018 1:00 PM EST Office Visit Hematology/Oncology at [address] [phone] Karen Guadalupe APRN Malignant neoplasm of left [...] SLN 2/2 positive, ER+/TX+, Her-2 unaplified. Subjective:I feel fine HPI: Ms. Narda Rivera is 67 y.o. female Referred to us for consultation by Dr. Cohen on new diagnosis of breast cancer. She initially presented with a mass in her upper outer left breast with calcifications on a screening mammogram in December 2013.The main mass was biopsied showing infiltrating ductal and lobular carcinoma, ER positive, [id number]. MRI was then performed that showed the [...] hair. Denies any bleeding. 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 She does [...] count: Mitotic count: Score = 3 Total [place] Score: Khalif Grade III: 8-9 points DCIS: [...] ER/[place]/HER2: ER/[place]/Her2 Comment: Please see prior biopsy [id number]. HER2 FISH will be repeated on this [...] breast documented in this encounter Care Teams Pediatric Cns Relationship Specialty Start Date End Date Ag Trent MD [address] [place] [address] PCP - General 02/02/14 documented as of this encounter
--- OUTSIDE RECORDS SUMMARY | 2024-05-05 01:51 | XMS_ITS | Encounter Summary ---
Author Organization [facility] Address [facility] [place] [address] Care Team Providers Care Funeral Director Name Role Phone Ag Trent MD Primary Care Provider [phone] Reason for Visit * Reason Comments Radiation Follow-up prostate cancer Encounter Details Date Type Department Care Team (Late st Contact Info) Description 11/30/2015 11:15 AM EDT Office Visit Radiation Oncology at [address] [phone] Haley Robles, GOLF [employer] FACER Malignant neoplasm of left female breast, unspecified [...] this encounter Progress Notes * Haley Robles, GOLF CL[employer] FACER - 11/30/2015 9:00 AM EDT Images from the original note were not included. Patient ID: Narda Rivera is a 65 y.o. female.breast ca, L, IDC w/lobular features, high gr, ER+MS+, Yju0ewd-, s/p lumpectomy & SNB, pT2 pN1a, stage II, +extensive LVI. S/p adjuvant chemo and radiation therapy. She was treated with 60.4 Gy which was completed on 10/18/2014. She is on letrozole for hormone therapy. She is in clinic for scheduled followup and to review her breast cancer survivorcare plan HPI 63 y/o f who underwent a screening mmg in 01/11, w/[facility] interp: L breast lesion 1, SUSPICIOUS, 14 mm mass @ 0100. L breast lesion 2, SUSPICIOUS, 3.8 mm mass @ 0100, 12 mm from lesion 1. R breast neg. ?? 02/02/14 US guided core needle bxs L breast mass @ 0100. ?? Path: Invasive mammary ca w/ductal & lobular features. LVI present. ER+MS+. Sge1nzm IHC neg. ?? 02/08/14 B breast MRI: [...] = 0.6 - 0.8 cm; pT2 pN1a. Qpo2ckt FISH neg. Comment: Multiple satellite foci of [...] 80 mg/m2/dose = 154 mg [facility] 07/05/2014 07/12/2014 Day, Cycle [...] mg pegfilgrastim (NEULASTA) Sub ONCN ONCOLOGY (AMB) 08/02/2014 08/09/2014 Day, Cycle [...] Surgery Lumpectomy done by Dr Cohen at [facility] Axillary Management [place] nodes alone--2+ of 2 sentinel nodes removed. [...] High grade Margin negative ER--estrogen receptor positive MS--progesterone receptor positive HER-2/FISH negative Adjuvant Chemotherapy Start [...] PARTIAL performed by [facility]brah[facility] OR ??? Pro bx/remv, lymph node, deep axill Left 02/22/2014 BIOPSY OR EXCISION OF LYMPH NODE(S), OPEN, DEEP AXILLARY NODE(S) performed by Ibrahima Cohen MD at [facility] OR ??? Pro identify sentinel node Left 02/22/2014 SENTINEL NODE INJECTION performed by Ibrahima Cohen MD at [facility] OR ??? Breast lumpectomy ??? Breast biopsy [...] She has utilized the SHIP services at [facility] and referred her back to there to speak with her contact. ??Advance Directives: pt has completed her advance directive. Per her requested obtained a copy from [facility]. Pt reviewed the document and indicated she wants to make changes. She was given a new [place] advance directive booklet/form to review and complete. Utilization of Community Resources: [facility] services. Pt receives her primary care at the [facility]. Pt agreeable to participate in the [place] Oncology Project. Discussed project and provided her with the brochure. SEAN Galeano RN, [facility] and informed her pt willing to participate. Adjustment to Illness/Mental Health Issues: Coping well at this time. ?? Identified Needs: With insurance related questions and referred to [facility] SHIP staff who she has utilized in the past. ? Interim History: Ms Rivera indicates that she is doing well at this time. She had a knee replacement three months ago--at [facility] which she indicates has been very helpful in her overall functional status . She is swimming at the [employer] pool which has also been helpful. She [...] Negative. Vitals Office Visit from 11/30/2015 in [facility] Radiation Oncology Weight - Scale 79.2 kg [...] ca, L, IDC w/lobular features, high gr, ER+MS+, Ryc8srj-, s/p lumpectomy & SNB, pT2 pN1a, stage [...] breast documented in this encounter Care Teams Funeral Director Relationship Specialty Start Date End Date Ag Trent MD [address] [place] [address] PCP - General 02/02/14 documented as of this encounter
--- OUTSIDE RECORDS SUMMARY | 2024-05-05 01:51 | XMS_ITS | Encounter Summary ---
Author Organization [facility] [place] [address] Care Team Providers Care Cvicu Rn Name Role Phone Ag Trent MD Primary Care Provider [phone] Encounter Details Date Type Department Care Team (Late st Contact Info) Description 06/02/2019 Telephone Cardiology at [address] [phone] Steven Eaton MD Social History Tobacco Use Types Packs/Day [...] 933 Referring Provider: KATERIN Grady Patient Location: [facility] Presenting Symptoms per OSH: 68 yo F with hx of CAD s/p PCI to prox LAD and prox OM1 in 02/2019 following a positive stress test. Initially contacted by [facility] for telephone consultation but it was cancelled. I never spoke to the provider at [facility]. documented in this encounter Plan of Treatment Not on file documented as of this encounter Visit Diagnoses Not on filedocumented in this encounter Care Teams Cvicu Rn Relationship Specialty Start Date End Date Ag Trent MD [address] [place] [address] PCP - General 02/02/14 documented as of this encounter
--- OUTSIDE RECORDS SUMMARY | 2024-05-05 01:51 | XMS_ITS | Encounter Summary ---
Author Organization [facility] Address [facility] [address] Care Team Providers Care Claim Adjuster Name Role Phone Ag Trent MD Primary Care Provider [phone] Reason for Visit * Reason Comments Follow-up Encounter Details Date Type Department Care Team (Late st Contact Info) Description 05/15/2016 2:30 PM EST Office [place] [phone] Shane Copeland MD [facility] [place] [address] Malignant neoplasm of left female breast, unspecified [...] No mammographic evidence of malignancy. RECOMMENDATION: The [employer] and The Society of [...] site documented in this encounter Care Teams Claim Adjuster Relationship Specialty Start Date End Date Ag Trent MD [address] [place] [address] PCP - General 02/02/14 documented as of this encounter
--- OUTSIDE RECORDS SUMMARY | 2024-05-05 01:51 | XMS_ITS | Encounter Summary ---
Author Organization [facility] Address [facility] [place] [address] Care Team Providers Care Beeswax Bleacher Name Role Phone Ag Trent MD Primary Care Provider [phone] Encounter Details Date Type Department Care Team (Latest Contact Info) Description 02/20/2016 - 02/20/2016 11:59 PM EST Hospital Encounter Radiology Library at [facility] [place] [phone] Kirill Saavedra MD [facility] [place] [address] Pain Discharge Disposition: Home Social History Tobacco [...] nuclear medicine (02/20/2016 12:00 AM EST) Narrative [facility] - 02/20/2016 9:59 PM EST This exam is for storage only and is auto-finalizing. Kirill Saavedra MD IMG FILM LIBRARY ORD ERABLES [place], [place] documented in this encounter Visit Diagnoses Diagnosis Pain Generalized pain documented in this encounter Care Teams Beeswax Bleacher Relationship Specialty Start Date End Date Ag Trent MD [address] [place] [address] PCP - General 02/02/14 documented as of this encounter
--- OUTSIDE RECORDS SUMMARY | 2024-05-05 01:51 | XMS_ITS | Encounter Summary ---
Author Organization [facility] Address [facility] [place] [address] Care Team Providers Care Automatic Developer Name Role Phone Ag Trent MD Primary Care Provider [phone] Encounter Details Date Type Department Care Team (Late st Contact Info) Description 05/19/2020 4:15 PM EST Ancillary Procedure Radiology Library at [facility], [place] [address] Ag Trent MD [address] [place] [address] Social History Tobacco Use Types [...] Trent MD IMG FILM LIBRARY ORD ERABLES [place], [place] documented in this encounter Visit Diagnoses Not on filedocumented in this encounter Care Teams Automatic Developer Relationship Specialty Start Date End Date Ag Trent MD [address] [place] [address] PCP - General 02/02/14 documented as of this encounter
--- OUTSIDE RECORDS SUMMARY | 2024-05-05 01:52 | XMS_ITS | Encounter Summary ---
Author Organization [facility] Address [facility] [place] [address] Care Team Providers Care Hydrogeology Professor Name Role Phone Ag Trent MD Primary Care Provider [phone] Reason for Visit * Reason Comments Chemotherapy Taxol CY 4 day 15 Encounter Details Date Type Department Care Team (Late st Contact Info) Description 08/09/2014 10:00 AM EDT Infusion Hematology Oncology at [address] [phone] Breast cancer, left breast; Other [...] DATA: WNL IV ACCESS: Mediport accessed at [facility] Pre administration: Chemotherapy orders independently verified for [...] (IV) Procedure: Accessing Implanted Vascular Access Devices (204) procedure and/or Intravenous (IV) Job Aid: Adult Flushing & Catheter Care (7501) job aid for additional information regarding guidelines [...] Job Aid: Adult Flushing & Catheter Care (0207) job aid for additional information regarding guidelines and administration., Routine Given 08/09/2014 12:55 PM EDT 20 mLs documented in this encounter Care Teams Hydrogeology Professor Relationship Specialty Start Date End Date Ag Trent MD [address] [place] [address] PCP - General 02/02/14 documented as of this encounter
--- OUTSIDE RECORDS SUMMARY | 2024-05-05 01:52 | XMS_ITS | Encounter Summary ---
Author Organization [facility] Address [facility] [place] [address] Care Team Providers Care Security Checker Name Role Phone Ag Trent MD Primary Care Provider [phone] Reason for Visit * Reason Comments On Treatment Visit Encounter Details Date Type Department Care Team (Late st Contact Info) Description 09/20/2014 11:15 AM EDT Office Visit Radiation Oncology at [address] [phone] Clau Alfonso MD [facility] [place] [address] Breast cancer, female, left Discharge Disposition: Home [...] Breast, L, IDC w/lobular features; high gr, ER+NM+, Vrf0euf-, s/p lumpectomy & SNB, pT2 pN1a, stage [...] For details, see electronic film record in [employer]. Changes in Medical Condition: Still w/sore [...] left documented in this encounter Care Teams Security Checker Relationship Specialty Start Date End Date Ag Trent MD [address] [place] [address] PCP - General 02/02/14 documented as of this encounter
--- OUTSIDE RECORDS SUMMARY | 2024-05-05 01:52 | XMS_ITS | Encounter Summary ---
Author Organization [facility] Address [facility] [place] [address] Care Team Providers Care Pulp Plant Supervisor Name Role Phone Ag Trent MD Primary Care Provider [phone] Reason for Visit * Reason Comments Radiation Treatment Encounter Details Date Type Department Care Team (Late st Contact Info) Description 10/18/2014 10:00 AM EDT Office Visit Radiation Oncology at [address] [phone] Clau Alfonso MD [facility] DR [place] [address] Breast cancer, female, left Discharge Disposition: Home [...] You will get a call from a certified legal secretary specialist to schedule your follow up appointment. Radiation Oncology [place], [place]: [phone] Radiation Oncology [place], [place] After hours for emergency for either location: [phone], ask to speak with the radiation oncologist content director Please continue the madhu's cream. Please do [...] Breast, L, IDC w/lobular features; high gr, ER+AK+, Pqy3wdp-, s/p lumpectomy & SNB, pT2 pN1a, stage [...] For details, see electronic film record in [employer]. Changes in Medical Condition: Sore throat [...] left documented in this encounter Care Teams Pulp Plant Supervisor Relationship Specialty Start Date End Date Ag Trent MD [address] [place] [address] PCP - General 02/02/14 documented as of this encounter
--- OUTSIDE RECORDS SUMMARY | 2024-05-05 01:52 | XMS_ITS | Encounter Summary ---
Author Organization [facility] Address [facility] [place] [address] Care Team Providers Care System Manager Name Role Phone Ag Trent MD Primary Care Provider [phone] Encounter Details Date Type Department Care Team (Late st Contact Info) Description 10/04/2014 11:30 AM EDT Office Visit Radiation Oncology at [address] [phone] Clau Alfonso MD [facility] [address] [place] [address] Breast cancer, female, left Discharge Disposition: Home [...] Breast, L, IDC w/lobular features; high gr, ER+WY+, Lol4nrm-, s/p lumpectomy & SNB, pT2 pN1a, stage [...] For details, see electronic film record in [employer] System. 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
--- OUTSIDE RECORDS SUMMARY | 2024-05-05 01:52 | XMS_ITS | Encounter Summary ---
Author Organization [facility] Address [facility] [place] [address] Care Team Providers Care Purchasing Manager/Sales Name Role Phone Ag Trent MD Primary Care Provider [phone] Reason for Visit * Reason Comments Radiation Treatment Encounter Details Date Type Department Care Team (Late st Contact Info) Description 08/30/2014 11:15 AM EDT Office Visit Radiation Oncology at [address] [phone] Clau Alfonso MD [facility] [place] [address] Breast cancer, female, left Discharge Disposition: Home [...] your treatment to your nurse or doctor. [facility] Radiation Oncology Our normal business hours are: Friday - Friday 8 AM to 5 PM [place], [place], [place] For emergent situations after hours please call for either location and ask for the Radiation Oncologist national park tour guide. documented in this encounter Progress Notes * Clau Alfonso MD - 08/30/2014 4:41 PM EDT DIAGNOSIS: Breast, L, IDC w/lobular features; high gr, ER+WI+, Nhi4ewk-, s/p lumpectomy & SNB, pT2 pN1a, stage [...] Related Symptoms: None. Treatment for Symptom Control: Maduh's cream. Pain Management: Not needed. Recommendation on [...] left documented in this encounter Care Teams Purchasing Manager/Sales Relationship Specialty Start Date End Date Ag Trent MD [address] [place] [address] PCP - General 02/02/14 documented as of this encounter
--- OUTSIDE RECORDS SUMMARY | 2024-05-05 01:52 | XMS_ITS | Encounter Summary ---
Author Organization [facility] Address [facility] [place] [address] Care Team Providers Care Lease Administrator Name Role Phone Ag Trent MD Primary Care Provider [phone] Reason for Visit * Reason Onset Date Comments Medication Refill 03/16/2015 Encounter Details Date Type Department Care Team (Late st Contact Info) Description 03/16/2015 Telephone Hematology/Oncology at [address] [phone] Nataly Real RN Medication Refill [...] PM EST Received Ed message from clinical pathology secretary/transcriptionist Patient Called requesting a refill of her [...] on filedocumented in this encounter Care Teams Lease Administrator Relationship Specialty Start Date End Date Ag Trent MD [address] [place] [address] PCP - General 02/02/14 documented as of this encounter
--- OUTSIDE RECORDS SUMMARY | 2024-05-05 01:52 | XMS_ITS | Encounter Summary ---
Author Organization Counts Include [facility] Address [facility] [place] [address] Care Team Providers Care Reactor Operator Name Role Phone Ag Trent MD Primary Care Provider [phone] Encounter Details Date Type Department Care Team (Late st Contact Info) Description 08/10/2014 Notes Only [place]ematology [place] [address] Kirill Saavedra MD [facility] [address] HEMATOLOGY AND ONCOLOGY [place] [id number] Social History Tobacco Use Types Packs/Day Years [...] Progress Notes * Yulissa Mcguire RN - 08/10/2014 2:07 PM EDT Research Study Note; Week 19 phone call 08/10/14 Control arm A [id number]: Effects of an Exercise Intervention on Physical Activity during Chemotherapy for Patients with Early Stage Breast Cancer Call to Narda to obtain exercise log data from 08/02/14 - 08/08/14. Narda reported that she only exercises three days for a total of 34 min; one day she walked for 10 min and used her hula hoop on two days (12 min each day) . Her daily average steps were 2,763. As usual a few days after her chemo she felt sick with no appetite, and achy joints. She is now finished with her chemo therapy tx and she will soon start radiation tx. Narda is hoping that she will regain her energy now after 5 months of treatment. She agrees to continue on study. documented in this encounter Plan of Treatment Not on file documented as of this encounter Visit Diagnoses Not on filedocumented in this encounter Care Teams Reactor Operator Relationship Specialty Start Date End Date Ag Trent MD [address] [place] [address] PCP - General 02/02/14 documented as of this encounter
--- OUTSIDE RECORDS SUMMARY | 2024-05-05 01:52 | XMS_ITS | Encounter Summary ---
Author Organization [facility] Address [facility] [place] [address] Care Team Providers Care Automobile Washer Steam Name Role Phone Ag Trent MD Primary Care Provider [phone] Encounter Details Date Type Department Care Team (Late st Contact Info) Description 11/16/2014 Orders Only Hematology [place] [phone] Kirill Saavedra MD [facility] [place] [address] Malignant neoplasm of breast (female), unspecified site [...] metabolic panel (non-fasting) (11/16/2014 9:43 AM EDT) [facility] Glucose 102 65 - 199 mg/dL [facility] MILLENNIUM Comment:Diabetes: >=200 mg/d L plus symptoms Blood Urea Nitrogen 13 8 - 18 mg/dL [facility]ERN[facility] MILLENNIUM Creatinine 0.51(L) 0.70 - 1.20 mg/dL [facility]ERNER MILLENNIUM Comment: Please note that the pediatric reference intervals supplied above were not validated at [facility]. Results from pediatric patients should [...] the following links into your internet browser. [email or web address] Blood specimen (specimen) 11/16/2014 9:43 AM EDT 11/16/2014 9:58 AM EDT Narrative Resulting Agency Comment Spec In Lab Kirill Saavedra MD CHEMISTRY ORDERABLES [facility] documented in this encounter Visit Diagnoses Diagnosis Malignant neoplasm of breast (female), unspecified site documented in this encounter Care Teams Automobile Washer Steam Relationship Specialty Start Date End Date Ag Trent MD [address] [place] [address] PCP - General 02/02/14 documented as of this encounter
--- OUTSIDE RECORDS SUMMARY | 2024-05-05 01:52 | XMS_ITS | Encounter Summary ---
Author Organization [facility] Address [facility] [place] [address] Care Team Providers Care Adobe Architect Name Role Phone Ag Trent MD Primary Care Provider [phone] Encounter Details Date Type Department Care Team (Late st Contact Info) Description 09/29/2014 11:30 AM EDT Ancillary Appointment Hematology/Oncology at [address] [phone] [facility] [address] Social History Tobacco Use Types Packs/Day Years [...] Padilla, TIN - 09/29/2014 10:55 AM EDT [facility] Dietitian Follow Up Assessment Seen By: Trish Padilla, MS, RD, PROPERTY FIELD ADJUSTER, LD Patient and diagnosis: Was asked to meet with pt by Dr. Rollins, was only able to meet briefly d/t3 kg wt loss in one week and mouth sores. Left 3.5 cm IDC with lobular features, lymphovascular invasion present, SLN 2/2 positive, ER+/NH+, Her-2 unaplified. Assessment: HPI: Patient Active Problem [...] levels, if suboptimal in 3-6 mos. The [facility] series from [facility] October 2008 showed a lower risk of [...] on filedocumented in this encounter Care Teams Adobe Architect Relationship Specialty Start Date End Date Ag Trent MD [address] [place] [address] PCP - General 02/02/14 documented as of this encounter
--- OUTSIDE RECORDS SUMMARY | 2024-05-05 01:52 | XMS_ITS | Encounter Summary ---
Author Organization Counts Include [facility] Address [facility] [place] [address] Care Team Providers Care Steam Brush Operator Name Role Phone Ag Trent MD Primary Care Provider [phone] Reason for Visit * Reason Onset Date Comments Follow-up 05/18/2015 Encounter Details Date Type Department Care Team (Late st Contact Info) Description 05/18/2015 Telephone Hematology/Oncology at [address] [phone] Kiarra Madrid RN Follow-up Social [...] mistake and it was high. Colten Sanchez ENVIRONMENTAL PROPERTY ASSESSOR wanted pt contacted and review how she [...] on filedocumented in this encounter Care Teams Steam Brush Operator Relationship Specialty Start Date End Date Ag Trent MD [address] [place] [address] PCP - General 02/02/14 documented as of this encounter
--- OUTSIDE RECORDS SUMMARY | 2024-05-05 01:52 | XMS_ITS | Encounter Summary ---
Author Organization [facility] Address [facility] [place] [address] Care Team Providers Care Mortician Supplies Sales Representative Name Role Phone Ag Trent MD Primary Care Provider [phone] Reason for Visit * Reason Comments Radiation Treatment Encounter Details Date Type Department Care Team (Late st Contact Info) Description 10/11/2014 11:30 AM EDT Office Visit Radiation Oncology at [address] [phone] [facility] [place] [address] Breast cancer, female, left Discharge Disposition: Home [...] Breast, L, IDC w/lobular features; high gr, ER+ND+, Wum7zba-, s/p lumpectomy & SNB, pT2 pN1a, stage [...] For details, see electronic film record in [employer]. 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
--- OUTSIDE RECORDS SUMMARY | 2024-05-05 01:52 | XMS_ITS | Encounter Summary ---
Author Organization [facility] Address [facility] [place] [address] Care Team Providers Care Bullet Maker Name Role Phone Ag Trent MD Primary Care Provider [phone] Encounter Details Date Type Department Care Team (Late st Contact Info) Description 11/16/2014 Orders Only [place] [phone] Kirill Saavedra MD [facility] [address] [place] [address] Examination of participant in clinical trial Social [...] EDT) Insulin 13.7 2.6 - 24.9 mcunit/mL [facility] Blood specimen (specimen) 11/16/2014 9:43 AM EDT 11/16/2014 9:58 AM EDT Narrative Resulting Agency Comment Spec In Lab Kirill Saavedra MD CHEMISTRY ORDERABLES [facility] [employer] * High Sensitivity CRP (11/16/2014 9:43 AM EDT) C-Reactive Protein High Sensitivity 3.4 mg/L [facility] Comment: Interpretations: 1) For accurate cardiac risk [...] In Lab Kirill Saavedra MD CHEMISTRY ORDERABLES [facility] documented in this encounter Visit Diagnoses Diagnosis Examination of participant in clinical trial documented in this encounter Care Teams Bullet Maker Relationship Specialty Start Date End Date Ag Trent MD [address] [place] [address] PCP - General 02/02/14 documented as of this encounter
--- OUTSIDE RECORDS SUMMARY | 2024-05-05 01:52 | XMS_ITS | Encounter Summary ---
Author Organization [facility] Address [facility] [place] [address] Care Team Providers Care Biofuels Operations Manager Name Role Phone Ag Trent MD Primary Care Provider [phone] Encounter Details Date Type Department Care Team (Late st Contact Info) Description 09/07/2014 Notes Only Hematology [place] [address] Kirill Saavedra MD [facility] DR HEMATOLOGY AND ONCOLOGY [place] [id number] Social History Tobacco Use Types Packs/Day Years [...] 23 phone call 09/07/14 Control arm A [id number]: Effects of an Exercise Intervention on Physical [...] on filedocumented in this encounter Care Teams Biofuels Operations Manager Relationship Specialty Start Date End Date Ag Trent MD [address] [place] [address] PCP - General 02/02/14 documented as of this encounter
--- OUTSIDE RECORDS SUMMARY | 2024-05-05 01:52 | XMS_ITS | Encounter Summary ---
Author Organization [facility] Address [facility] [place] [address] Care Team Providers Care Landscape Artist Name Role Phone Ag Trent MD Primary Care Provider [phone] Reason for Visit * Reason Comments Other Encounter Details Date Type Department Care Team (Late st Contact Info) Description 08/31/2014 Telephone Radiation Oncology at [address] [address] Evette Waddell, RN Social History [...] on filedocumented in this encounter Care Teams Landscape Artist Relationship Specialty Start Date End Date Ag Trent MD [address] [place] [address] PCP - General 02/02/14 documented as of this encounter
--- OUTSIDE RECORDS SUMMARY | 2024-05-05 01:52 | XMS_ITS | Encounter Summary ---
Author Organization [facility] Address [facility] [address] Care Team Providers Care Gun Striper Name Role Phone Ag Trent MD Primary Care Provider [phone] Encounter Details Date Type Department Care Team (Late st Contact Info) Description 09/06/2014 11:30 AM EDT Ancillary Appointment Hematology/Oncology at [address] [phone] [facility] [place] [address] Social History Tobacco Use Types Packs/Day Years [...] Padilla, TIN - 09/06/2014 12:13 PM EDT [facility] Dietitian Follow Up Assessment Seen By: Trish Padilla, MS, RD, CCNA, LD Patient and diagnosis: Was asked to meet with pt by Dr. Rollins, was only able to meet briefly d/t3 kg wt loss in one week and mouth sores. 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 Assessment: HPI: Patient Active Problem [...] levels, if suboptimal in 3-6 mos. The [facility] series from [facility] October 2008 showed a lower risk of [...] on filedocumented in this encounter Care Teams Gun Striper Relationship Specialty Start Date End Date Ag Trent MD [address] [place] [address] PCP - General 02/02/14 documented as of this encounter
--- OUTSIDE RECORDS SUMMARY | 2024-05-05 01:52 | XMS_ITS | Encounter Summary ---
Author Organization [facility] [place] [address] Care Team Providers Care Avp Name Role Phone Ag Trent MD Primary Care Provider [phone] Encounter Details Date Type Department Care Team (Latest Contact Info) Description 09/28/2014 Unscheduled Encounter Radiation Oncology at [address] [address] Evette Waddell RN Malignant neoplasm [...] site documented in this encounter Care Teams Avp Relationship Specialty Start Date End Date Ag Trent MD [address] [place] [address] PCP - General 02/02/14 documented as of this encounter
--- OUTSIDE RECORDS SUMMARY | 2024-05-05 01:52 | XMS_ITS | Encounter Summary ---
Author Organization [facility] Address [facility] [place] [address] Care Team Providers Care Ceramic Research Engineer Name Role Phone Ag Trent MD Primary Care Provider [phone] Reason for Visit * Reason Comments Follow-up Encounter Details Date Type Department Care Team (Late st Contact Info) Description 05/04/2015 3:30 PM EST Office Visit [place] [phone] Shane Copeland MD [facility] [place] [address] Malignant neoplasm of left female breast, unspecified [...] Center. BIRADS CATEGORY 2: BENIGN FINDINGS [employer] [place] [employer] and The Society of [...] breast documented in this encounter Care Teams Ceramic Research Engineer Relationship Specialty Start Date End Date Ag Trent MD [address] [place] [address] PCP - General 02/02/14 documented as of this encounter
--- OUTSIDE RECORDS SUMMARY | 2024-05-05 01:52 | XMS_ITS | Encounter Summary ---
Author Organization [facility] Address [facility] [place] [address] Care Team Providers Care Tile Inspector Name Role Phone Ag Trent MD Primary Care Provider [phone] Encounter Details Date Type Department Care Team (Latest Contact Info) Description 05/04/2015 2:39 PM EST - 05/04/2015 11:59 PM [facility] Hospital En[place] [phone] Ibrahima Cohen MD [facility] [place] [address] Personal history of malignant neoplasm of breast [...] BIRADS CATEGORY 2: BENIGN FINDINGS * ??The [employer] and The Society of [...] breast documented in this encounter Care Teams Tile Inspector Relationship Specialty Start Date End Date Ag Trent MD [address] [place] [address] PCP - General 02/02/14 documented as of this encounter
--- OUTSIDE RECORDS SUMMARY | 2024-05-05 01:52 | XMS_ITS | Encounter Summary ---
Author Organization [facility] Address [facility] [place] [address] Care Team Providers Care Vault Mechanic Name Role Phone Ag Trent MD Primary Care Provider [phone] Reason for Visit * Reason Comments Follow-up Encounter Details Date Type Department Care Team (Late st Contact Info) Description 11/08/2014 1:30 PM EDT Follow-Up Hematology/Oncology at [address] [address] Kirill Saavedra MD [facility] DR HEMATOLOGY [place] [address] Malignant neoplasm of left female breast (BREAST [...] features, lymphovascular invasion present, SLN 2/2 positive, ER+/IN+, Her-2 unaplified. Subjective:I feel fine HPI: Ms. Narda Rivera is 64 y.o. female Referred to us for consultation by Dr. Cohen on new diagnosis of breast cancer. She initially presenteda mass in her upper outer left breast with calcificationson a screening mammogram in December 2013.The main mass wasbiopsied showing infiltrating ductal and lobular carcinoma, ER positive, [id number]. MRI was then performed that showed the [...] count: Score = 3 Total Peterson Score: Khalif Grade III: 8-9 points DCIS: [...] slide reconstruction) MICROCALCIFICATIONS: Present in nonneoplastic tissue ER/IN/HER2: ER/IN/Her2 Comment: Please see prior biopsy [id number]. HER2 FISH will be repeated on this [...] cancer cells with immunostaining) Stain Intensity: Strong IN immunoreactivity: Positive (11-90% cancer cells with immunostaining) [...] features, lymphovascular invasion present, SLN 2/2 positive, ER+/IN+, Her-2 unaplified, T2,at least N1a, Mx Treatment:s/p [...] measure documented in this encounter Care Teams Vault Mechanic Relationship Specialty Start Date End Date Ag Trent MD [address] [place] [address] PCP - General 02/02/14 documented as of this encounter
--- OUTSIDE RECORDS SUMMARY | 2024-05-05 01:52 | XMS_ITS | Encounter Summary ---
Author Organization [facility] Address [facility] [place] [address] Care Team Providers Care Galvanizing Pot Runner Name Role Phone Ag Trent MD Primary Care Provider [phone] Reason for Visit * Reason Comments Radiation Treatment Encounter Details Date Type Department Care Team (Late st Contact Info) Description 09/13/2014 11:15 AM EDT Office Visit Radiation Oncology at [address] [phone] Clau Alfonso MD [facility] [place] [address] Breast cancer, female, left Discharge Disposition: Home [...] L, IDC w/lobular features; high gr, ER+VT+, Xwk0wvl-, s/p lumpectomy & SNB, pT2 pN1a, stage [...] For details, see electronic film record in [employer]. Changes in Medical Condition: Breathing better [...] left documented in this encounter Care Teams Galvanizing Pot Runner Relationship Specialty Start Date End Date Ag Trent MD [address] [place] [address] PCP - General 02/02/14 documented as of this encounter
--- OUTSIDE RECORDS SUMMARY | 2024-05-05 01:52 | XMS_ITS | Encounter Summary ---
Author Organization [facility] Address [facility] [place] [address] Care Team Providers Care Assistant Professor Of Education Name Role Phone Ag Trent MD Primary Care Provider Encounter Details Date Type Department Care Team (Late st Contact Info) Description 05/16/2015 2:30 PM EST Office Visit Hematology/Oncology at [address] [phone] Kirill Saavedra MD [facility] [address] [place] [address] Meenakshi Sanchez, CULINARY SPECIALIST Malignant neoplasm of left female breast, unspecified [...] this encounter Progress Notes * Meenakshi Sanchez, CULINARY SPECIALIST - 05/16/2015 2:52 PM EST Diagnosis: 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 Subjective:When will I feel normal again? HPI: Ms. Narda Rivera is 64 y.o. female Referred to us for consultation by Dr. Cohen on new diagnosis of breast cancer. She initially presenteda mass in her upper outer left breast with calcificationson a screening mammogram in December 2013.The main mass wasbiopsied showing infiltrating ductal and lobular carcinoma, ER positive, [id number]. MRI was then performed that showed the [...] features, lymphovascular invasion present, SLN 2/2 positive, ER+/MN+, Her-2 unaplified, T2,at least N1a, Mx Treatment:s/p [...] nodes normal Neurologic: Normal; nl patellar reflexes; clinical quality manager grossly intact Vitals BP 122/56 mmHg Pulse [...] count: Mitotic count: Score = 3 Total [place] Score: [place] Grade III: 8-9 points DCIS: Ductal Carcinoma [...] slide reconstruction) MICROCALCIFICATIONS: Present in nonneoplastic tissue ER/MN/HER2: ER/MN/Her2 Comment: Please see prior biopsy [id number]. HER2 FISH will be repeated on this [...] cancer cells with immunostaining) Stain Intensity: Strong [place] immunoreactivity: Positive (11-90% cancer cells with immunostaining) [...] features, lymphovascular invasion present, SLN 2/2 positive, ER+/MN+, Her-2 unaplified, T2,at least N1a, Mx Treatment:s/p [...] CMP in 3 months Meenakshi Sanchez, MSN, TIN CAN FEEDER, AOCN [facility]/[address] Gallardo, [facility] documented in this encounter Plan of Treatment Not on file documented as of this encounter Visit Diagnoses Diagnosis Malignant neoplasm of left female breast, unspecified site of breast documented in this encounter Care Teams Assistant Professor Of Education Relationship Specialty Start Date End Date Ag Trent MD [address] [place] [address] PCP - General 02/02/14 documented as of this encounter
--- OUTSIDE RECORDS SUMMARY | 2024-05-05 01:52 | XMS_ITS | Encounter Summary ---
Author Organization [facility] Address [facility] [place] [address] Care Team Providers Care Shanker Out Name Role Phone Ag Trent MD Primary Care Provider [phone] Encounter Details Date Type Department Care Team (Late st Contact Info) Description 11/16/2014 Notes Only [place] [address] Kirill Saavedra MD [facility] DR HEMATOLOGY AND ONCOLOGY [place] [id number] Social History Tobacco Use Types Packs/Day Years [...] of Study visit (EOS) Control ARM 11/16/2014 50437: Effects of an Exercise Intervention on Physical [...] on filedocumented in this encounter Care Teams Shanker Out Relationship Specialty Start Date End Date Ag Trent MD [address] [place] [address] PCP - General 02/02/14 documented as of this encounter
--- OUTSIDE RECORDS SUMMARY | 2024-05-05 01:52 | XMS_ITS | Encounter Summary ---
Author Organization [facility] Address [facility] [place] [address] Care Team Providers Care Film Processing Supervisor Name Role Phone Ag Trent MD Primary Care Provider [phone] Encounter Details Date Type Department Care Team (Late st Contact Info) Description 11/16/2014 10:30 AM EDT Office Visit [place] [address] Mai Pizarro, PT Kirill Saavedra MD [facility] [address] [place] [address] H/O lumpectomy Discharge Disposition: Home Social History [...] status documented in this encounter Care Teams Film Processing Supervisor Relationship Specialty Start Date End Date Ag Trent MD [address] [place] [address] PCP - General 02/02/14 documented as of this encounter
--- OUTSIDE RECORDS SUMMARY | 2024-05-05 01:52 | XMS_ITS | Encounter Summary ---
Author Organization [facility] Address [facility] [place] [address] Care Team Providers Care Case Investigator Name Role Phone Ag Trent MD Primary Care Provider Encounter Details Date Type Department Care Team (Late st Contact Info) Description 11/16/2014 Notes Only [place]ology [place] [address] Kirill Saavedra MD [facility] DR HEMATOLOGY AND ONCOLOGY [place] [id number] Social History Tobacco Use Types Packs/Day Years [...] on filedocumented in this encounter Care Teams Case Investigator Relationship Specialty Start Date End Date Ag Trent MD [address] [place] [address] PCP - General 02/02/14 documented as of this encounter
--- OUTSIDE RECORDS SUMMARY | 2024-05-05 01:52 | XMS_ITS | Encounter Summary ---
Author Organization [facility] Address [facility] [place] [address] Care Team Providers Care Machine Featheredger And Reducer Name Role Phone Ag Trent MD Primary Care Provider [phone] Encounter Details Date Type Department Care Team (Latest Contact Info) Description 08/23/2014 8:36 AM EDT - 08/23/2014 11:59 PM EDT Hospital [place] [phone] CLINIC, Kirill St MD [facility] DR HEMATOLOGY [place] [address] Malignant neoplasm of left female breast (BREAST [...] from the original note were not included. [facility] Vascular and Interventional Radiology Discharge Instructions for [...] not peel them off. There may be [place]-parikh (skin glue) also, allow this to flake [...] is during regular office hours, please call [phone]. If it is after regular office hours, or on weekends or holidays, please call [phone] and ask to speak to the Television Program Director environmental health sanitarian for Interventional Radiology. You have received medication [...] of : 1950 AGE 63 y.o. Address: [address] [place] [phone] (home) Mobile: No relevant phone numbers on [...] PARTIAL performed by Ibrahima Cohen MD at [facility] MAIN OR ??? Bx/remv, lymph node, deep axill Left 02/22/2014 BIOPSY OR EXCISION OF LYMPH NODE(S), OPEN, DEEP AXILLARY NODE(S) performed by Ibrahima Cohen MD at [facility] MAIN OR ??? Identify sentinel node Left 02/22/2014 SENTINEL NODE INJECTION performed by Ibrahima Cohen MD at [facility] MAIN OR ??? Left 02/22/2014 MODIFIER SENTINEL NODE EXCISION performed by Ibrahima Cohen MD at [facility] MAIN OR Date/Procedure Comments: 03/18/14 Mediport [...] informed this patient that they require a front load trash truck driver to be present and in the building to drive them home after this procedure. In the absence of a front load trash truck driver, IR will not be able to [...] PARACENTESIS (DX OR THERAPEUTIC); W/ IMAGING GUIDANCE [KDG1580 (CPT?)] ??Expand All Collapse All VIR PROCEDURE [...] Vaughn PA-C Attending: Dr. Weaver Procedure Note aSnti Weaver MD - 08/23/2014 Procedures 1. ABDOMINAL PARACENTESIS (DX OR THERAPEUTIC); W/ IMAGING GUIDANCE[[id number] (CPT?)] Expand All Collapse All VIR PROCEDURE [...] mL/hr documented in this encounter Care Teams Machine Featheredger And Reducer Relationship Specialty Start Date End Date Ag Trent MD [address] [place] [address] PCP - General 02/02/14 documented as of this encounter
--- OUTSIDE RECORDS SUMMARY | 2024-05-05 01:52 | XMS_ITS | Encounter Summary ---
Author Organization [facility] Address [facility] [place] [address] Care Team Providers Care Shoe Packer Name Role Phone Ag Trent MD Primary Care Provider [phone] Encounter Details Date Type Department Care Team (Late st Contact Info) Description 11/15/2014 Telephone Hematology/Oncology at [address] [address] Kiarra Madrid RN Social History [...] left documented in this encounter Care Teams Shoe Packer Relationship Specialty Start Date End Date Ag Trent MD [address] [place] [address] PCP - General 02/02/14 documented as of this encounter
--- OUTSIDE RECORDS SUMMARY | 2024-05-05 01:52 | XMS_ITS | Encounter Summary ---
Author Organization [facility] Address [facility] [place] [address] Care Team Providers Care Cast Iron Drain Pipe Layer Name Role Phone Ag Trent MD Primary Care Provider [phone] Encounter Details Date Type Department Care Team (Late st Contact Info) Description 08/16/2014 Orders Only Radiation Oncology at [address] [address] Clau Alfonso MD [facility] [place] [address] Social History Tobacco Use Types Packs/Day Years [...] on filedocumented in this encounter Care Teams Cast Iron Drain Pipe Layer Relationship Specialty Start Date End Date Ag Trent MD [address] [place] [address] PCP - General 02/02/14 documented as of this encounter
--- OUTSIDE RECORDS SUMMARY | 2024-05-05 01:52 | XMS_ITS | Encounter Summary ---
Author Organization [facility] Address [facility] Sony[address] tra[address] [place] [id number] Care Team Providers Care Bottle Feeder Name Role Phone Ag Trent MD Primary Care Provider [phone] Reason for Referral * Consultation (Routine) - Complete - Patient Seen (External Appt Consult Notes Rcv'd) Specialty Diagnoses / Procedures Referred By Sary kee Referred To Contact Hematology and Oncology Diagnoses Breast cancer, female, left Clau Alfonso MD [facility] [place] [address] [facility] Hem Onc Office [address] [place] [phone] Referral ID Status Reason Start Date Expiration Date Visits Requested Visits Authorized [id number] Complete - Patient Seen (External Appt Consult Notes Rcv'd) Consult, Test & Treat 11/28/2014 11/28/2015 3 3 Reason for Visit * Reason Comments Radiation Follow-up Encounter Details Date Type Department Care Team (Late st Contact Info) Description 11/28/2014 2:00 PM EDT Follow-Up Radiation Oncology at [address] [phone] Clau Alfonso MD [facility] [place] [address] Breast cancer, female, left Discharge Disposition: Home [...] to see me or a Radiation Oncology healthcare administrator in [address] Trent [...] ca, L, IDC w/lobular features, high gr, ER+WA+,Znn0mez-, s/p lumpectomy & SNB, pT2 pN1a, stage [...] PARTIAL performed by Ibrahima Cohen MD at [facility] MAIN OR ??? Pro bx/remv, lymph node, deep axill Left 02/22/2014 BIOPSY OR EXCISION OF LYMPH NODE(S), OPEN, DEEP AXILLARY NODE(S) performed by Ibrahima Cohen MD at [facility] MAIN OR ??? Pro identify sentinel node Left 02/22/2014 SENTINEL NODE INJECTION performed by Ibrahima Cohen MD at [facility] MAIN OR ??? Left 02/22/2014 MODIFIER SENTINEL NODE EXCISION performed by Ibrahima Cohen MD at [facility] MAIN OR Physical Exam Constitutional: She [...] left documented in this encounter Care Teams Bottle Feeder Relationship Specialty Start Date End Date Ag Trent MD [address] [place] [address] PCP - General 02/02/14 documented as of this encounter
--- OUTSIDE RECORDS SUMMARY | 2024-05-05 01:52 | XMS_ITS | Encounter Summary ---
Author Organization [facility] Address [facility] [place] [address] Care Team Providers Care Muffle Operator Name Role Phone Ag Trent MD Primary Care Provider [phone] Encounter Details Date Type Department Care Team (Late st Contact Info) Description 08/25/2014 Notes Only Hematology [place] [address] Kirill Saavedra MD [facility] DR [place]EMATOLOGY [place] [address] Social History Tobacco Use Types Packs/Day Years [...] 21 phone call 08/25/14 Control arm A [address]: Effects of an Exercise Intervention on Physical [...] on filedocumented in this encounter Care Teams Muffle Operator Relationship Specialty Start Date End Date Ag Trent MD [address] [place] [address] PCP - General 02/02/14 documented as of this encounter
--- OUTSIDE RECORDS SUMMARY | 2024-05-05 01:52 | XMS_ITS | Encounter Summary ---
Author Organization [facility] Address [facility] [place] [address] Care Team Providers Care Business Services Vice President Name Role Phone Ag Trent MD Primary Care Provider [phone] Reason for Visit * Reason Comments Radiation Treatment Encounter Details Date Type Department Care Team (Late st Contact Info) Description 09/06/2014 11:15 AM EDT Office Visit Radiation Oncology at [address] [phone] Clau Alfonso MD [facility] [place] [address] Breast cancer, female, left Discharge Disposition: Home [...] Breast, L, IDC w/lobular features; high gr, ER+WA+, [id number]-, s/p lumpectomy & SNB, pT2 pN1a, stage [...] For details, see electronic film record in [employer]. Changes in Medical Condition: Was prescribed [...] left documented in this encounter Care Teams Business Services Vice President Relationship Specialty Start Date End Date Ag Trent MD [address] [place] [address] PCP - General 02/02/14 documented as of this encounter
--- OUTSIDE RECORDS SUMMARY | 2024-05-05 01:52 | XMS_ITS | Encounter Summary ---
Author Organization [facility] Address [facility] [place] [address] Care Team Providers Care Battery Parts Assembler Name Role Phone Ag Trent MD Primary Care Provider [phone] Encounter Details Date Type Department Care Team (Latest Contact Info) Description 08/16/2014 8:00 AM EDT Ancillary Appointment Radiation Oncology at [address] [phone] Clau Alfonso MD [facility] [place] [address] Breast cancer, female, left Social History Tobacco [...] left documented in this encounter Care Teams Battery Parts Assembler Relationship Specialty Start Date End Date Ag Trent MD [address] [place] [address] PCP - General 02/02/14 documented as of this encounter
--- OUTSIDE RECORDS SUMMARY | 2024-05-05 01:52 | XMS_ITS | Encounter Summary ---
Author Organization [facility] Address [facility] [place] [address] Care Team Providers Care Instrumentation Specialist Name Role Phone Ag Trent MD Primary Care Provider [phone] Reason for Visit * Reason Comments Radiation Treatment Encounter Details Date Type Department Care Team (Late st Contact Info) Description 09/27/2014 11:30 AM EDT Office Visit Radiation Oncology at [address] [phone] Maisha Alfonso MD [facility] [place] [address] Breast cancer, female, left Discharge Disposition: Home [...] Breast, L, IDC w/lobular features; high gr, ER+[place]+, [id number]-, s/p lumpectomy & SNB, pT2 pN1a, stage [...] For details, see electronic film record in [employer] System. Changes in Medical Condition: Still w/sore throat & reports odynophagia; both symptoms w/o record changer assembler past wk; takes gaviscon & uninterested in [...] left documented in this encounter Care Teams Instrumentation Specialist Relationship Specialty Start Date End Date Ag Trent MD [address] [place] [address] PCP - General 02/02/14 documented as of this encounter
--- OUTSIDE RECORDS SUMMARY | 2024-05-05 01:52 | XMS_ITS | Encounter Summary ---
Author Organization [facility] Address [facility] [place] [address] Care Team Providers Care Engineering And Scientific Programmer Name Role Phone Ag Trent MD Primary Care Provider Encounter Details Date Type Department Care Team (Late st Contact Info) Description 08/10/2014 Orders Only Hematology/Oncology at [address] [phone] Kirill Saavedra MD [facility] DR [place] [address] Malignant neoplasm of left female breast (BREAST [...] site documented in this encounter Care Teams Engineering And Scientific Programmer Relationship Specialty Start Date End Date Ag Trent MD [address] [place] [address] PCP - General 02/02/14 documented as of this encounter
--- OUTSIDE RECORDS SUMMARY | 2024-05-05 01:52 | XMS_ITS | Encounter Summary ---
Author Organization [facility] Address [facility] [place] [address] Care Team Providers Care Bottle Gauger Name Role Phone Ag Trent MD Primary Care Provider [phone] Encounter Details Date Type Department Care Team (Late st Contact Info) Description 10/11/2014 Notes Only Hematology [place] [address] Kirill Saavedra MD [facility] DR HEMATOLOGY AND ONCOLOGY [place] [id number] Social History Tobacco Use Types Packs/Day Years [...] 10:24 AM EDT Research Nurse: Week 28 [place] phone call Control ARM 10/11/2014 62015: Effects of an Exercise Intervention on Physical [...] on filedocumented in this encounter Care Teams Bottle Gauger Relationship Specialty Start Date End Date Ag Trent MD [address] [place] [address] PCP - General 02/02/14 documented as of this encounter
--- OUTSIDE RECORDS SUMMARY | 2024-05-05 01:52 | XMS_ITS | Encounter Summary ---
Author Organization [facility] Address [facility] [place] [address] Care Team Providers Care Calender Let Off Helper Name Role Phone Ag Trent MD Primary Care Provider [phone] Encounter Details Date Type Department Care Team (Late st Contact Info) Description 11/16/2014 Notes Only Hematology [place] [address] Kirill Saavedra MD [facility] DR HEMATOLOGY AND ONCOLOGY [place] [phone] Social History Tobacco Use Types Packs/Day Years [...] End of Study (EOS) Control ARM 11/16/2014 23702: Effects of an Exercise Intervention on Physical [...] on filedocumented in this encounter Care Teams Calender Let Off Helper Relationship Specialty Start Date End Date Ag Trent MD [address] [place] [address] PCP - General 02/02/14 documented as of this encounter
--- OUTSIDE RECORDS SUMMARY | 2024-05-05 01:52 | XMS_ITS | Encounter Summary ---
Author Organization [facility] [address] Care Team Providers Care Electrical Technology Instructor Name Role Phone Ag Trent MD Primary Care Provider Encounter Details Date Type Department Care Team (Late st Contact Info) Description 03/16/2015 Orders Only Hematology Oncology at [address] [phone] Kiarra Madrid RN Breast cancer, female, left [...] left documented in this encounter Care Teams Electrical Technology Instructor Relationship Specialty Start Date End Date Ag Trent MD [address] [place] [address] PCP - General 02/02/14 documented as of this encounter
--- OUTSIDE RECORDS SUMMARY | 2024-05-05 01:52 | XMS_ITS | Encounter Summary ---
Author Organization [facility] [place] [address] Care Team Providers Care [employer] Member Name Role Phone Ag Trent MD Primary Care Provider [phone] Encounter Details Date Type Department Care Team (Late st Contact Info) Description 11/18/2014 Orders Only Hematology Oncology at [address] [phone] Kiarra Madrid RN Breast cancer, female, unspecified [...] laterality documented in this encounter Care Teams National [employer] Member Relationship Specialty Start Date End Date Ag Trent MD [address] [place] [address] PCP - General 02/02/14 documented as of this encounter
--- OUTSIDE RECORDS SUMMARY | 2024-05-05 01:52 | XMS_ITS | Encounter Summary ---
Author Organization [facility] Address [facility] [place] [address] Care Team Providers Care Hospital Admissions Clerk Name Role Phone Ag Trent MD Primary Care Provider [phone] Reason for Visit * Reason Comments Follow-up Encounter Details Date Type Department Care Team (Late st Contact Info) Description 02/07/2015 2:30 PM EST Office Visit Hematology/Oncology at [address] [phone] Kirill Saavedra MD [facility] [place] [address] Personal history of breast cancer; Osteopenia Social [...] 2/2 positive, ER+/GA+, Her-2 unaplified. Subjective:I feel fine HPI: Ms. Narda Rivera is 64 y.o. female Referred to us for consultation by Dr. Cohen on new diagnosis of breast cancer. She initially presenteda mass in her upper outer left breast with calcificationson a screening mammogram in December 2013.The main mass wasbiopsied showing infiltrating ductal and lobular carcinoma, ER positive, [id number]. MRI was then performed that showed the [...] in right breast. Examination was done in [facility]: Regular rate and rhythm, S1, [...] ER/GA/HER2: ER/GA/Her2 Comment: Please see prior biopsy [id number]. HER2 FISH will be repeated on this [...] unspecified documented in this encounter Care Teams Hospital Admissions Clerk Relationship Specialty Start Date End Date Ag Trent MD [address] [place] [address] PCP - General 02/02/14 documented as of this encounter
--- OUTSIDE RECORDS SUMMARY | 2024-05-05 01:52 | XMS_ITS | Encounter Summary ---
Author Organization [facility] Address [facility] [place] [address] Care Team Providers Care Gutter Mouth Cutter Name Role Phone Ag Trent MD Primary Care Provider [phone] Encounter Details Date Type Department Care Team (Latest Contact Info) Description 11/16/2014 9:20 AM EDT - 11/16/2014 11:59 PM EDT Hospital Encounter [place] [phone] CLINIC, Kirill St MD [facility] DR HEMATOLOGY [place] [address] Malignant neoplasm of breast (female), unspecified site [...] metabolic panel (non-fasting) (11/16/2014 9:43 AM EDT) [facility] Glucose 102 65 - 199 mg/dL CERNER MILLENNIUM Comment:Diabetes: >=200 mg/d L plus symptoms Blood Urea Nitrogen 13 8 - 18 mg/dL CERNER MILLENNIUM Creatinine 0.51(L) 0.70 - 1.20 mg/dL CERNER MILLENNIUM Comment: Please note that the pediatric reference intervals supplied above were not validated at [facility]. Results from pediatric patients should be interpreted [...] the following links into your internet browser. [email or web address] Blood specimen (specimen) 11/16/2014 9:43 AM EDT 11/16/2014 9:58 AM EDT Narrative Resulting Agency Comment Spec In Lab Kirill Saavedra MD CHEMISTRY ORDERABLES MARI MILLANIUM documented in this encounter Visit Diagnoses Diagnosis Malignant neoplasm of breast (female), unspecified site documented in this encounter Care Teams Gutter Mouth Cutter Relationship Specialty Start Date End Date Ag Trent MD [address] [place] [address] PCP - General 02/02/14 documented as of this encounter
--- OUTSIDE RECORDS SUMMARY | 2024-05-05 01:52 | XMS_ITS | Encounter Summary ---
Author Organization [facility] Address [facility] [place] [address] Care Team Providers Care Pneudraulic Systems Mechanic Name Role Phone Ag Trent MD Primary Care Provider [phone] Reason for Visit * Reason Onset Date Comments Follow-up 12/14/2014 Encounter Details Date Type Department Care Team (Late st Contact Info) Description 12/14/2014 Telephone Hematology/Oncology at [address] [phone] Kiarra Madrid RN Follow-up Social [...] on filedocumented in this encounter Care Teams Pneudraulic Systems Mechanic Relationship Specialty Start Date End Date Ag Trent MD [address] [place] [address] PCP - General 02/02/14 documented as of this encounter
--- OUTSIDE RECORDS SUMMARY | 2024-05-05 01:52 | XMS_ITS | Encounter Summary ---
Author Organization [facility] Address [facility] [place] [address] Care Team Providers Care Trapper Animal Name Role Phone Ag Trent MD Primary Care Provider [phone] Encounter Details Date Type Department Care Team (Late st Contact Info) Description 08/17/2014 Notes Only Hematology [place] [address] Kirill Saavedra MD [facility] DR HEMATOLOGY [place] [address] Social History Tobacco Use Types Packs/Day Years [...] 20 phone call 08/17/14 Control arm A [id number]: Effects of an Exercise Intervention on Physical [...] of her providers. She had contacted the [employer] and is expecting a call back from them. documented in this encounter Plan of Treatment Not on file documented as of this encounter Visit Diagnoses Not on filedocumented in this encounter Care Teams Trapper Animal Relationship Specialty Start Date End Date Ag Trent MD [address] [place] [address] PCP - General 02/02/14 documented as of this encounter
--- OUTSIDE RECORDS SUMMARY | 2024-05-05 01:52 | XMS_ITS | Encounter Summary ---
Author Organization [facility] Address [facility] [place] [address] Care Team Providers Care National Account Representative Name Role Phone Ag Trent MD Primary Care Provider [phone] Encounter Details Date Type Department Care Team (Late st Contact Info) Description 11/17/2014 Orders Only Hematology Oncology at [address] [phone] Ashley Elena, RN Social History Tobacco Use [...] on filedocumented in this encounter Care Teams National Account Representative Relationship Specialty Start Date End Date Ag Trent MD [address] [place] [address] PCP - General 02/02/14 documented as of this encounter
--- OUTSIDE RECORDS SUMMARY | 2024-05-05 01:52 | XMS_ITS | Encounter Summary ---
Author Organization [facility] [place] [address] Care Team Providers Care Regulator Mechanic Name Role Phone Ag Trent MD Primary Care Provider [phone] Encounter Details Date Type Department Care Team (Late st Contact Info) Description 12/16/2014 1:00 PM EDT Follow-Up Hematology/Oncology at [address] [phone] Meenakshi Sanchez APRN Breast cancer, left breast; Malignant neoplasm of [...] this encounter Progress Notes * Meenakshi Sanchez APRN - 12/16/2014 1:20 PM EDT Subjective: Patient [...] Plan: 45 minutes of this 45 minute yzex-ke-hgkl visit from 1 to 1:45 were spent [...] further questions or problems. Meenakshi Sanchez, MSN, WEB DESIGN INSTRUCTOR, AOCN Hematology/Oncology Nurse Practitioner [place], [place] [phone] documented in this encounter Plan of Treatment [...] site documented in this encounter Care Teams Regulator Mechanic Relationship Specialty Start Date End Date Ag Trent MD [address] [place] [address] PCP - General 02/02/14 documented as of this encounter
--- OUTSIDE RECORDS SUMMARY | 2024-05-05 01:52 | XMS_ITS | Encounter Summary ---
Author Organization [facility] Address [facility] [place] [address] Care Team Providers Care Hand Picker Name Role Phone Ag Trent MD Primary Care Provider [phone] Encounter Details Date Type Department Care Team (Late st Contact Info) Description 10/07/2014 Notes Only Radiation Oncology at [address] [phone] Evette Waddell, RN Social History [...] Her fingernails are painted with blue nail kiswahili and she is wearing a wide rimmed [...] on filedocumented in this encounter Care Teams Hand Picker Relationship Specialty Start Date End Date Ag Trent MD [address] [place] [address] PCP - General 02/02/14 documented as of this encounter
--- OUTSIDE RECORDS SUMMARY | 2024-05-05 01:52 | XMS_ITS | Encounter Summary ---
Author Organization [facility] Address [facility] [place] [address] Care Team Providers Care Gate Clerk Name Role Phone Ag Trent MD Primary Care Provider [phone] Encounter Details Date Type Department Care Team (Late st Contact Info) Description 08/29/2014 Notes Only Radiation Oncology at [address] [phone] Evette Waddell, RN Social History Tobacco Use [...] this year. She has spoken with the [employer] about the Look Good Feel Good program and feels like it would not benefit her since it relies heavily on makeup application which she is not interestedin. She also chose not to wear a wig because it feels unnatural. She is wearing a broad rimmed hat and also wearing nail [place] today . I explained that the hair [...] pool swimming. She swims often at the [employer] [place]. She lost some weight with chemo [...] on filedocumented in this encounter Care Teams Gate Clerk Relationship Specialty Start Date End Date Ag Trent MD [address] [place] [address] PCP - General 02/02/14 documented as of this encounter
--- OUTSIDE RECORDS SUMMARY | 2024-05-05 01:52 | XMS_ITS | Encounter Summary ---
Author Organization [facility] Address [facility] [address] Care Team Providers Care Tight Rope Walker Name Role Phone Ag Trent MD Primary Care Provider Encounter Details Date Type Department Care Team (Late st Contact Info) Description 11/16/2014 Orders Only Hematology [place] [address] Kirill Saavedra MD [facility] DR HEMATOLOGY AND ONCOLOGY [place] [phone] Malignant neoplasm of breast (female), unspecified site [...] site documented in this encounter Care Teams Tight Rope Walker Relationship Specialty Start Date End Date Ag Trent MD [address] [place] [address] PCP - General 02/02/14 documented as of this encounter
--- OUTSIDE RECORDS SUMMARY | 2024-05-05 01:52 | XMS_ITS | Encounter Summary ---
Author Organization [facility] Address [facility] [place] [address] Care Team Providers Care Computer Systems Technician Name Role Phone Ag Trent MD Primary Care Provider [phone] Reason for Visit * Reason Comments Follow-up Encounter Details Date Type Department Care Team (Late st Contact Info) Description 11/16/2014 2:50 PM EDT Follow-[place] [phone] CLINIC, Shane Turner MD [facility] [place] [address] Personal history of malignant neoplasm of breast [...] BIRADS CATEGORY 2: BENIGN FINDINGS * ??[employer] and [employer] Society of [...] breast documented in this encounter Care Teams Computer Systems Technician Relationship Specialty Start Date End Date Ag Trent MD [address] [place] [address] PCP - General 02/02/14 documented as of this encounter
--- OUTSIDE RECORDS SUMMARY | 2024-05-05 01:52 | XMS_ITS | Encounter Summary ---
Author Organization [facility] Address [facility] [place] [address] Care Team Providers Care Dehydrogenation Converter Helper Name Role Phone Ag Trent MD Primary Care Provider [phone] Encounter Details Date Type Department Care Team (Late st Contact Info) Description 07/13/2015 Telephone Hematology/Oncology at [address] [phone] Nataly Real I RN Social [...] on filedocumented in this encounter Care Teams Dehydrogenation Converter Helper Relationship Specialty Start Date End Date Ag Trent MD [address] [place] [address] PCP - General 02/02/14 documented as of this encounter
--- OUTSIDE RECORDS SUMMARY | 2024-05-05 01:52 | XMS_ITS | Encounter Summary ---
[place] [address] Care Team Providers Care Plant Operator/Shift Supervisor Name Role Phone Ag Trent MD Primary Care Provider Encounter Details Date Type Department Care Team (Late st Contact Info) Description 03/13/2015 Orders Only Hematology [place] [address] Otilia Andre Social History Tobacco Use Types [...] on filedocumented in this encounter Care Teams Plant Operator/Shift Supervisor Relationship Specialty Start Date End Date Ag Trent MD [address] [place] [address] PCP - General 02/02/14 documented as of this encounter
--- OUTSIDE RECORDS SUMMARY | 2024-05-05 01:52 | XMS_ITS | Encounter Summary ---
Author Organization [facility] Address [facility] [place] [address] Care Team Providers Care Patient Manager Name Role Phone Ag Trent MD Primary Care Provider [phone] Encounter Details Date Type Department Care Team (Late st Contact Info) Description 09/14/2014 Notes Only Hematology [place] [address] Kirill Saavedra MD [facility] DR HEMATOLOGY AND ONCOLOGY [place] [phone] Social History Tobacco Use Types Packs/Day Years [...] 24 phone call 09/14/14 [place] A [id number]: Effects of an Exercise Intervention on Physical [...] on filedocumented in this encounter Care Teams Patient Manager Relationship Specialty Start Date End Date Ag Trent MD [address] [place] [address] PCP - General 02/02/14 documented as of this encounter
--- OUTSIDE RECORDS SUMMARY | 2024-05-05 01:52 | XMS_ITS | Encounter Summary ---
Author Organization [facility] [place] [address] Care Team Providers Care Physics Department Chair Name Role Phone Ag Trent MD Primary Care Provider [phone] Encounter Details Date Type Department Care Team (Latest Contact Info) Description 09/12/2014 Unscheduled Encounter Radiation Oncology at [address] [phone] Susana Mohamud RN Cough, persistent [...] Cough documented in this encounter Care Teams Physics Department Chair Relationship Specialty Start Date End Date Ag Trent MD [address] [place] [address] PCP - General 02/02/14 documented as of this encounter
--- OUTSIDE RECORDS SUMMARY | 2024-05-05 01:52 | XMS_ITS | Encounter Summary ---
Author Organization [facility] Address [facility] [place] [address] Care Team Providers Care Hoisting Machine Operator Name Role Phone Ag Trent MD Primary Care Provider [phone] Encounter Details Date Type Department Care Team (Late st Contact Info) Description 09/01/2014 Notes Only Radiation Oncology at [address] [phone] Evette Waddell, RN Social History Tobacco Use [...] she has an appt to see our cabinet abrasive sandblaster, Trish tomorrow, however she prefers to wait [...] on filedocumented in this encounter Care Teams Hoisting Machine Operator Relationship Specialty Start Date End Date Ag Trent MD [address] [place] [address] PCP - General 02/02/14 documented as of this encounter
--- OUTSIDE RECORDS SUMMARY | 2024-05-05 01:52 | XMS_ITS | Encounter Summary ---
Author Organization [facility] Address [facility] [place] [address] Care Team Providers Care Tractor Engine Mechanic Name Role Phone Ag Trent MD Primary Care Provider [phone] Encounter Details Date Type Department Care Team (Late st Contact Info) Description 09/01/2014 Notes Only Hematology [place] [address] Kirill Saavedra MD [facility] [address] HEMATOLOGY AND ONCOLOGY [place] [phone] Social History Tobacco Use Types Packs/Day Years [...] 22 phone call 09/01/14 [place] A [address]: Effects of an Exercise Intervention on Physical [...] on filedocumented in this encounter Care Teams Tractor Engine Mechanic Relationship Specialty Start Date End Date Ag Trent MD [address] [place] [address] PCP - General 02/02/14 documented as of this encounter
--- OUTSIDE RECORDS SUMMARY | 2024-05-05 01:52 | XMS_ITS | Encounter Summary ---
Author Organization [facility] Address [facility] [place] [address] Care Team Providers Care Millinery Blocker Name Role Phone Ag Trent MD Primary Care Provider [phone] Encounter Details Date Type Department Care Team (Latest Contact Info) Description 11/16/2014 1:45 PM EDT - 11/16/2014 11:59 PM EDT Hospital Encounter Mammography at [facility] [place] [phone] Personal history of malignant neoplasm of breast [...] breast documented in this encounter Care Teams Millinery Blocker Relationship Specialty Start Date End Date Ag Trent MD [address] [place] [address] PCP - General 02/02/14 documented as of this encounter
--- OUTSIDE RECORDS SUMMARY | 2024-05-05 01:52 | XMS_ITS | Encounter Summary ---
Author Organization [facility] Address [facility] [address] Care Team Providers Care Catastrophe Claims Supervisor Name Role Phone Ag Trent MD Primary Care Provider [phone] Reason for Visit * Reason Onset Date Comments Medication Refill 11/17/2014 Encounter Details Date Type Department Care Team (Late st Contact Info) Description 11/17/2014 Telephone Hematology/Oncology at [address] [address] Ashley Elena, field education director Refill Social History Tobacco Use Types Packs/Day [...] Telephone Encounter - Ashley Elena, RN - 11/17/2014 10:56 AM EDT Phone call from patient to report that she is unable to afford copay of aromasin prescription. She states that it is over $300. Phone call to patient's mail order pharmacy and did confirm that she does have a copay of $312.52 for aromasin prescription due to tier that medication is on on her insurance plan. Spoke then with insurance department to explore options for Narda. Spoke with patient intake representative, Rainer. After a lengthy discussion, able to determine that exemestane is a tier 4 medication (patient responsible for 35% of cost of drug) and femara is tier 2 drug (patient's copay would be $0).She must meet her $320 deductible first, as she has not met any of this yet for her new plan year. Carley ray with Dr. Saavedra option of switching to a more affordable drug for Narda. documented in this encounter Plan of Treatment Not on file documented as of this encounter Visit Diagnoses Not on filedocumented in this encounter Care Teams Catastrophe Claims Supervisor Relationship Specialty Start Date End Date Ag Trent MD [address] [place] [address] PCP - General 02/02/14 documented as of this encounter
--- OUTSIDE RECORDS SUMMARY | 2024-05-05 01:53 | XMS_ITS | Encounter Summary ---
Author Organization [facility] Address [facility] [place] [address] Care Team Providers Care Preliminary School Psychologist Name Role Phone Ag Trent MD Primary Care Provider [phone] Encounter Details Date Type Department Care Team (Late st Contact Info) Description 07/05/2014 Notes Only Hematology Oncology at [address] [phone] Taylor Sousa, PITTING MACHINE OPERATOR OFFICE OF CARE MANAGEMENT Social History Tobacco [...] Pt indicated she has a contact at [facility] and will callif she needs to explore this option. 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 [...] on filedocumented in this encounter Care Teams Preliminary School Psychologist Relationship Specialty Start Date End Date Ag Trent MD [address] [place] [address] PCP - General 02/02/14 documented as of this encounter
--- OUTSIDE RECORDS SUMMARY | 2024-05-05 01:53 | XMS_ITS | Encounter Summary ---
Author Organization [facility] Address [facility] [place] [address] [place] [address] Care Team Providers Care Materials Branch Chief Name Role Phone Ag Trent MD Primary Care Provider [phone] Reason for Visit * Reason Comments Follow-up Encounter Details Date Type Department Care Team (Late st Contact Info) Description 07/05/2014 10:00 AM EDT Follow-Up Hematology Oncology at [address] [address] Kirill Saavedra MD [facility] [address] [place] [address] Malignant neoplasm of left female breast (BREAST [...] features, lymphovascular invasion present, SLN 2/2 positive, ER+/OK+, Her-2 unaplified. Subjective:I still feel nauseated HPI: Ms. Narda Rivera is 63 y.o. female Referred to us for consultation by Dr. Cohen on new diagnosis of breast cancer. She initially presenteda mass in her upper outer left breast with calcificationson a screening mammogram in December 2013.The main mass wasbiopsied showing infiltrating ductal and lobular carcinoma, ER positive, [id number]. MRI was then performed that showed the [...] count: Mitotic count: Score = 3 Total Traver Score: Traver Grade III: 8-9 points DCIS: Ductal Carcinoma [...] slide reconstruction) MICROCALCIFICATIONS: Present in nonneoplastic tissue ER/OK/HER2: ER/OK/Her2 Comment: Please see prior biopsy [id number]. HER2 FISH will be repeated on this [...] cancer cells with immunostaining) Stain Intensity: Strong [place] immunoreactivity: Positive (11-90% cancer cells with immunostaining) [...] features, lymphovascular invasion present, SLN 2/2 positive, ER+/OK+, Her-2 unaplified, T2,at least N1a, Mx Treatment:s/p [...] alone documented in this encounter Care Teams Materials Branch Chief Relationship Specialty Start Date End Date Ag Trent MD [address] [place] [address] PCP - General 02/02/14 documented as of this encounter
--- OUTSIDE RECORDS SUMMARY | 2024-05-05 01:53 | XMS_ITS | Encounter Summary ---
Author Organization [facility] Address [facility] [place] [address] Care Team Providers Care Police Department Secretary Name Role Phone Ag Trent MD Primary Care Provider [phone] Encounter Details Date Type Department Care Team (Late st Contact Info) Description 07/20/2014 Notes Only Hematology [place] [address] Kirill Saavedra MD [facility] DR HEMATOLOGY AND ONCOLOGY [place] [id number] Social History Tobacco Use Types Packs/Day Years [...] 16 phone call 07/20/14 Control arm A [id number]: Effects of an Exercise Intervention on Physical [...] on filedocumented in this encounter Care Teams Police Department Secretary Relationship Specialty Start Date End Date Ag Trent MD [address] [place] [address] PCP - General 02/02/14 documented as of this encounter
--- OUTSIDE RECORDS SUMMARY | 2024-05-05 01:53 | XMS_ITS | Encounter Summary ---
Author Organization [facility] Address [facility] [place] [place] [address] Care Team Providers Care Teacher Vocational Training Name Role Phone Ag Trent MD Primary Care Provider [phone] Reason for Visit * Reason Comments Follow-up Encounter Details Date Type Department Care Team (Late st Contact Info) Description 07/26/2014 10:00 AM EDT Follow-Up Hematology/Oncology at [address] [address] Kirill Saavedra MD [facility] DR HEMATOLOGY [place] [address] Breast cancer, left breast; Hypokalemia; Fatigue Discharge [...] present, SLN 2/2 positive, ER+/MS+, Her-2 unaplified. Subjective:I feel more tired HPI: Ms. Narda Rivera is 63 y.o. female Referred to us for consultation by Dr. Cohen on new diagnosis of breast cancer. She initially presenteda mass in her upper outer left breast with calcificationson a screening mammogram in December 2013.The main mass wasbiopsied showing infiltrating ductal and lobular carcinoma, ER positive, [id number]. MRI was then performed that showed the [...] count: Score = 3 Total Khalif Score: [place] Grade III: 8-9 points DCIS: Ductal Carcinoma [...] ER/MS/HER2: ER/MS/Her2 Comment: Please see prior biopsy [id number]. HER2 FISH will be repeated on this [...] fatigue documented in this encounter Care Teams Teacher Vocational Training Relationship Specialty Start Date End Date Ag Trent MD [address] [place] [address] PCP - General 02/02/14 documented as of this encounter
--- OUTSIDE RECORDS SUMMARY | 2024-05-05 01:53 | XMS_ITS | Encounter Summary ---
Author Organization [facility] Address [facility] [address] Care Team Providers Care Comber Tender Name Role Phone Ag Trent MD Primary Care Provider [phone] Encounter Details Date Type Department Care Team (Late st Contact Info) Description 06/22/2014 Notes Only Hematology [place] [address] Kirill Saavedra MD [facility] DR HEMATOLOGY [place] [address] Social History Tobacco Use Types Packs/Day Years [...] 12 phone call 06/22/14 Control arm A [id number]: Effects of an Exercise Intervention on Physical [...] on filedocumented in this encounter Care Teams Comber Tender Relationship Specialty Start Date End Date Ag Trent MD [address] [place] [address] PCP - General 02/02/14 documented as of this encounter
--- OUTSIDE RECORDS SUMMARY | 2024-05-05 01:53 | XMS_ITS | Encounter Summary ---
Author Organization Count Includes [facility] Address [facility] [place] [address] Care Team Providers Care Distributor Of Directories Name Role Phone Ag Trent MD Primary Care Provider [phone] Encounter Details Date Type Department Care Team (Late st Contact Info) Description 06/01/2014 Notes Only Hematology [place] [address] Kirill Saavedra MD [facility] [address] [place] [address] Social History Tobacco Use Types Packs/Day Years [...] 9 phone call 06/01/14 Control arm A [id number]: Effects of an Exercise Intervention on Physical [...] was going [place] an outing to [place] with her [place] friend after this phonecall. She agreed that I can call again next Friday. documented in this encounter Plan of Treatment Not on file documented as of this encounter Visit Diagnoses Not on filedocumented in this encounter Care Teams Distributor Of Directories Relationship Specialty Start Date End Date Ag Trent MD [address] [place] [address] PCP - General 02/02/14 documented as of this encounter
--- OUTSIDE RECORDS SUMMARY | 2024-05-05 01:53 | XMS_ITS | Encounter Summary ---
Author Organization [facility] Address [facility] [place] [address] Care Team Providers Care Paint Preparer Name Role Phone Ag Trent MD Primary Care Provider [phone] Encounter Details Date Type Department Care Team (Late st Contact Info) Description 07/27/2014 Notes Only Hematology [place] [address] Kirill Saavedra MD [facility] DR HEMATOLOGY AND ONCOLOGY [place] [phone] Social History Tobacco Use Types Packs/Day Years [...] 17 phone call 07/27/14 Control arm A [id number]: Effects of an Exercise Intervention on Physical [...] on filedocumented in this encounter Care Teams Paint Preparer Relationship Specialty Start Date End Date Ag Trent MD [address] [place] [address] PCP - General 02/02/14 documented as of this encounter
--- OUTSIDE RECORDS SUMMARY | 2024-05-05 01:53 | XMS_ITS | Encounter Summary ---
Author Organization [facility] Address [facility] [place] [address] Care Team Providers Care Visual Supervisor Name Role Phone Ag Trent MD Primary Care Provider [phone] Encounter Details Date Type Department Care Team (Late st Contact Info) Description 05/24/2014 10:00 AM EST Follow-Up Hematology Oncology at [address] [address] Kirill Saavedra MD [facility] [address] [place] [address] Breast cancer, left breast; Mucositis; Hypokalemia; Anxiety [...] present, SLN 2/2 positive, ER+/MN+, Her-2 unaplified. Subjective:I just recovered 2 days ago from last chemo HPI: Mrs. Narda Rivera is 63 y.o. female Referred to us for consultation by Dr. Cohen on new diagnosis of breast cancer. She initially presenteda mass in her upper outer left breast with calcifications on a screening mammogram in December 2013.The main mass wasbiopsied showing infiltrating ductal andlobular carcinoma, ER positive, [id number]. MRI was then performed that showed the [...] ER/MN/HER2: ER/MN/Her2 Comment: Please see prior biopsy [id number]. HER2 FISH will be repeated on this [...] unspecified documented in this encounter Care Teams Visual Supervisor Relationship Specialty Start Date End Date Ag Trent MD [address] [place] [address] PCP - General 02/02/14 documented as of this encounter
--- OUTSIDE RECORDS SUMMARY | 2024-05-05 01:53 | XMS_ITS | Encounter Summary ---
Author Organization [facility] Address [facility] [place] [address] Care Team Providers Care Liquid Flavor Compounder Name Role Phone Ag Trent MD Primary Care Provider [phone] Encounter Details Date Type Department Care Team (Late st Contact Info) Description 07/27/2014 Notes Only Hematology [place] [address] Kirill Saavedra MD [facility] DR HEMATOLOGY AND ONCOLOGY [place] [phone] Social History Tobacco Use Types Packs/Day Years [...] Notes * Yulissa Mcguire RN - 07/27/2014 1:01 PM EDT Research Study Note; Week 16 phone call 07/20/14 Control arm A [id number]: Effects of an Exercise Intervention on Physical [...] on filedocumented in this encounter Care Teams Liquid Flavor Compounder Relationship Specialty Start Date End Date Ag Trent MD [address] [place] [address] PCP - General 02/02/14 documented as of this encounter
--- OUTSIDE RECORDS SUMMARY | 2024-05-05 01:53 | XMS_ITS | Encounter Summary ---
Author Organization [facility] Address [facility] [place] [place] [address] Care Team Providers Care Agricultural Researcher Name Role Phone Ag Trent MD Primary Care Provider [phone] Reason for Visit * Reason Comments Follow-up Encounter Details Date Type Department Care Team (Late st Contact Info) Description 05/31/2014 10:00 AM EST Follow-Up Hematology Oncology at [address] [address] Kirill Saavedra MD [facility] [place] [address] Breast cancer, left; Mucositis; Anxiety; Anemia, unspecified [...] features, lymphovascular invasion present, SLN 2/2 positive, ER+/KS+, Her-2 unaplified. Subjective:I felt fatigued after chemo HPI: Mrs. Narda Rivera is 63 y.o. female Referred to us for consultation by Dr. Cohen on new diagnosis of breast cancer. She initially presenteda mass in her upper outer left breast with calcifications on a screening mammogram in December 2013.The main mass wasbiopsied showing infiltrating ductal andlobular carcinoma, ER positive, [id number]. MRI was then performed that showed the [...] count: Mitotic count: Score = 3 Total [place] Score: [place] Grade III: 8-9 points DCIS: Ductal Carcinoma [...] slide reconstruction) MICROCALCIFICATIONS: Present in nonneoplastic tissue ER/KS/HER2: ER/KS/Her2 Comment: Please see prior biopsy [id number]. HER2 FISH will be repeated on this [...] cancer cells with immunostaining) Stain Intensity: Strong [place] immunoreactivity: Positive (11-90% cancer cells with immunostaining) [...] features, lymphovascular invasion present, SLN 2/2 positive, ER+/KS+, Her-2 unaplified, T2,at least N1a, Mx Treatment:s/p [...] fatigue documented in this encounter Care Teams Agricultural Researcher Relationship Specialty Start Date End Date Ag Trent MD [address] [place] [address] PCP - General 02/02/14 documented as of this encounter
--- OUTSIDE RECORDS SUMMARY | 2024-05-05 01:53 | XMS_ITS | Encounter Summary ---
Author Organization [place] [address] Care Team Providers Care Pc Support Specialist Name Role Phone Ag Trent MD Primary Care Provider Encounter Details Date Type Department Care Team (Late st Contact Info) Description 07/05/2014 Orders Only Hematology Oncology at [address] [address] Ashley Elena, RN Breast cancer, left breast; [...] site documented in this encounter Care Teams Pc Support Specialist Relationship Specialty Start Date End Date Ag Trent MD [address] [place] [address] PCP - General 02/02/14 documented as of this encounter
--- OUTSIDE RECORDS SUMMARY | 2024-05-05 01:53 | XMS_ITS | Encounter Summary ---
Author Organization [facility] Address [facility] [place] [place] [address] Care Team Providers Care Supervisor Sample Preparation Name Role Phone Ag Trent MD Primary Care Provider [phone] Reason for Visit * Reason Comments Follow-up Encounter Details Date Type Department Care Team (Late st Contact Info) Description 07/12/2014 10:00 AM EDT Follow-Up Hematology/Oncology at [address] [address] Kirill Saavedra MD [facility] DR HEMATOLOGY [place] [address] Breast cancer, left breast; Hypokalemia; Hypomagnesemia; Fatigue [...] present, SLN 2/2 positive, ER+/NM+, Her-2 unaplified. Subjective:Zofran helps with nausea HPI: Ms. Narda Rivera is 63 y.o. female Referred to us for consultation by Dr. Cohen on new diagnosis of breast cancer. She initially presenteda mass in her upper outer left breast with calcificationson a screening mammogram in December 2013.The main mass wasbiopsied showing infiltrating ductal and lobular carcinoma, ER positive, [id number]. MRI was then performed that showed the [...] ER/NM/HER2: ER/NM/Her2 Comment: Please see prior biopsy [id number]. HER2 FISH will be repeated on this [...] fatigue documented in this encounter Care Teams Supervisor Sample Preparation Relationship Specialty Start Date End Date Ag Trent MD [address] [place] [address] PCP - General 02/02/14 documented as of this encounter
--- OUTSIDE RECORDS SUMMARY | 2024-05-05 01:53 | XMS_ITS | Encounter Summary ---
Author Organization [facility] Address [facility] [place] [address] Care Team Providers Care Oil Well Logger Name Role Phone Ag Trent MD Primary Care Provider [phone] Reason for Visit * Reason Comments Chemotherapy Taxol - cycle 2, day 1 (Dose 4) Encounter Details Date Type Department Care Team (Late st Contact Info) Description 06/14/2014 10:00 AM EDT Office Visit Hematology Oncology at [address] [address] CLINIC, [facility] HEM/ONC Kirill Saavedra MD [facility] HEMATOLOGY [place] [address] Breast cancer, left breast; Other specified prophylactic [...] (IV) Procedure: Accessing Implanted Vascular Access Devices (410) procedure and/or Intravenous (IV) Job Aid: Adult Flushing & Catheter Care (5874) job aid for additional information regarding guidelines [...] Job Aid: Adult Flushing & Catheter Care (2360) job aid for additional information regarding guidelines and administration., Routine Given 06/14/2014 12:55 PM EDT 20 mLs documented in this encounter Care Teams Oil Well Logger Relationship Specialty Start Date End Date Ag Trent MD [address] [place] [address] PCP - General 02/02/14 documented as of this encounter
--- OUTSIDE RECORDS SUMMARY | 2024-05-05 01:53 | XMS_ITS | Encounter Summary ---
Author Organization [facility] Address [facility] [place] [place] [address] Care Team Providers Care Cement Mixer Name Role Phone Ag Trent MD Primary Care Provider [phone] Reason for Visit * Reason Comments Chemotherapy Cycle 2 day 8 Encounter Details Date Type Department Care Team (Late st Contact Info) Description 06/21/2014 11:00 AM EDT Office Visit Hematology Oncology at [address] [address] CLINIC, DR [facility] HEM/ONC Kirill Saavedra MD [facility] [place] [address] Breast cancer, left breast; Other specified prophylactic [...] Job Aid: Adult Flushing & Catheter Care (2792) job aid for additional information regarding guidelines [...] Job Aid: Adult Flushing & Catheter Care (3693) job aid for additional information regarding guidelines and administration., Routine Given 06/21/2014 2:10 PM EDT 20 mLs documented in this encounter Care Teams Cement Mixer Relationship Specialty Start Date End Date Ag Trent MD [address] [place] [address] PCP - General 02/02/14 documented as of this encounter
--- OUTSIDE RECORDS SUMMARY | 2024-05-05 01:53 | XMS_ITS | Encounter Summary ---
Author Organization [facility] Address [facility] [place] [address] Care Team Providers Care Financial Services Manager Name Role Phone Ag Trent MD Primary Care Provider [phone] Encounter Details Date Type Department Care Team (Late st Contact Info) Description 05/25/2014 Notes Only Hematology [place] [address] Kirill Saavedra MD [facility] DR HEMATOLOGY AND ONCOLOGY [place] [phone] Social History Tobacco Use Types Packs/Day Years [...] 8 phone call 05/25/14 Control arm A [id number]: Effects of an Exercise Intervention on Physical [...] on filedocumented in this encounter Care Teams Financial Services Manager Relationship Specialty Start Date End Date Ag Trent MD [address] [place] [address] PCP - General 02/02/14 documented as of this encounter
--- OUTSIDE RECORDS SUMMARY | 2024-05-05 01:53 | XMS_ITS | Encounter Summary ---
Author Organization [facility] Address [facility] [place] [address] Care Team Providers Care Php Magento Developer Name Role Phone Ag Trent MD Primary Care Provider [phone] Reason for Visit * Reason Comments Chemotherapy Taxol # 2 Encounter Details Date Type Department Care Team (Late st Contact Info) Description 05/31/2014 11:00 AM EST Office Visit Hematology Oncology at [address] [address] CLINIC, DR [facility] HEM/ONC Breast [...] by Colten Pena RN and Luz Pizano [facility] REACTIONS (DESCRIPTION, TIME, INTERVENTION AND EFFECTIVENESS) none [...] (IV) Procedure: Accessing Implanted Vascular Access Devices (844) procedure and/or Intravenous (IV) Job Aid: Adult Flushing & Catheter Care (1637) job aid for additional information regarding guidelines [...] Job Aid: Adult Flushing & Catheter Care (1473) job aid for additional information regarding guidelines and administration., Routine Given 05/31/2014 2:40 PM EST 20 mLs documented in this encounter Care Teams Php Magento Developer Relationship Specialty Start Date End Date Ag Trent MD [address] [place] [address] PCP - General 02/02/14 documented as of this encounter
--- OUTSIDE RECORDS SUMMARY | 2024-05-05 01:53 | XMS_ITS | Encounter Summary ---
Author Organization [facility] Address [facility] [place] [place] [address] Care Team Providers Care Forestry Aid Name Role Phone Ag Trent MD Primary Care Provider [phone] Reason for Visit * Reason Comments Follow-up Encounter Details Date Type Department Care Team (Late st Contact Info) Description 08/09/2014 9:00 AM EDT Follow-Up Hematology/Oncology at [address] [address] Kirill Fox MD [facility] DR HEMATOLOGY [place] [address] Malignant neoplasm of left female breast (BREAST [...] infiltrating ductal and lobular carcinoma, ER positive, [id number]. MRI was then performed that showed the [...] count: Mitotic count: Score = 3 Total [place] Score: Khalif Grade III: 8-9 points DCIS: [...] ER/NE/HER2: ER/NE/Her2 Comment: Please see prior biopsy [id number]. HER2 FISH will be repeated on this [...] PARACENTESIS (DX OR THERAPEUTIC); W/ IMAGING GUIDANCE [WGH3216 (CPT?)] ??Expand All Collapse All VIR PROCEDURE [...] ABDOMINAL PARACENTESIS (DX OR THERAPEUTIC); W/ IMAGING GUIDANCE[EVY5393 (CPT?)] Expand All Collapse All VIR PROCEDURE [...] site documented in this encounter Care Teams Forestry Aid Relationship Specialty Start Date End Date Ag Trent MD [address] [place] [address] PCP - General 02/02/14 documented as of this encounter
--- OUTSIDE RECORDS SUMMARY | 2024-05-05 01:53 | XMS_ITS | Encounter Summary ---
Author Organization [facility] Address [facility] [place] [place] [address] Care Team Providers Care Dependency Director Name Role Phone Ag Trent MD Primary Care Provider [phone] Reason for Visit * Reason Comments Follow-up Encounter Details Date Type Department Care Team (Late st Contact Info) Description 06/28/2014 10:00 AM EDT Follow-Up Hematology Oncology at [address] [phone] Kirill Saavedra MD [facility] DR HEMATOLOGY [place] [address] Breast cancer, left; Hypomagnesemia; Nausea alone Discharge [...] present, SLN 2/2 positive, ER+/IA+, Her-2 unaplified. Subjective:I feel more nauseated HPI: Ms. Narda Rivera is 63 y.o. female Referred to us for consultation by Dr. Cohen on new diagnosis of breast cancer. She initially presenteda mass in her upper outer left breast with calcificationson a screening mammogram in December 2013.The main mass wasbiopsied showing infiltrating ductal and lobular carcinoma, ER positive, [id number]. MRI was then performed that showed the [...] count: Score = 3 Total Khalif Score: Valdez Grade III: 8-9 points DCIS: Ductal Carcinoma [...] ER/IA/HER2: ER/IA/Her2 Comment: Please see prior biopsy [id number]. HER2 FISH will be repeated on this [...] alone documented in this encounter Care Teams Dependency Director Relationship Specialty Start Date End Date Ag Trent MD [address] [place] [address] PCP - General 02/02/14 documented as of this encounter
--- OUTSIDE RECORDS SUMMARY | 2024-05-05 01:53 | XMS_ITS | Encounter Summary ---
Author Organization [facility] Address [facility] [place] [address] Care Team Providers Care Umbrella Tipper Name Role Phone Ag Trent MD Primary Care Provider [phone] Encounter Details Date Type Department Care Team (Late st Contact Info) Description 07/13/2014 Notes Only Hematology [place] [address] Kirill Saavedra MD [facility] DR [place] [address] Social History Tobacco Use Types Packs/Day Years [...] 15 phone call 07/13/14 Control arm A [id number]: Effects of an Exercise Intervention on Physical [...] on filedocumented in this encounter Care Teams Umbrella Tipper Relationship Specialty Start Date End Date Ag Trent MD [address] [place] [address] PCP - General 02/02/14 documented as of this encounter
--- OUTSIDE RECORDS SUMMARY | 2024-05-05 01:53 | XMS_ITS | Encounter Summary ---
Author Organization [facility] Address [facility] [place] [address] Care Team Providers Care Bioinformatics Developer Name Role Phone Ag Trent MD Primary Care Provider Encounter Details Date Type Department Care Team (Late st Contact Info) Description 05/24/2014 Orders Only Hematology Oncology at [address] [phone] Kirill Saavedra MD [facility] [place] [address] Malignant neoplasm of left female breast (BREAST [...] site documented in this encounter Care Teams Bioinformatics Developer Relationship Specialty Start Date End Date Ag Trent MD [address] [place] [address] PCP - General 02/02/14 documented as of this encounter
--- OUTSIDE RECORDS SUMMARY | 2024-05-05 01:53 | XMS_ITS | Encounter Summary ---
Author Organization Pending Sale [facility] Address [facility] [place] [address] Care Team Providers Care Solar Technician Name Role Phone Ag Trent MD Primary Care Provider [phone] Reason for Visit * Reason Comments Injections neulasta Encounter Details Date Type Department Care Team (Late st Contact Info) Description 05/11/2014 1:00 PM EST Office Visit Hematology Oncology at [address] [phone] CLINIC, DR ARANGO HEM/ONC Meenakshi Sanchez, RAJ Other specified prophylactic or treatment measure; Malignant [...] Arm documented in this encounter Care Teams Solar Technician Relationship Specialty Start Date End Date Ag Trent MD [address] [place] [address] PCP - General 02/02/14 documented as of this encounter
--- OUTSIDE RECORDS SUMMARY | 2024-05-05 01:53 | XMS_ITS | Encounter Summary ---
Author Organization [facility] Address [facility] [place] [place] [address] Care Team Providers Care Enamel Drier Name Role Phone Ag Trent MD Primary Care Provider [phone] Reason for Visit * Reason Comments Follow-up Encounter Details Date Type Department Care Team (Late st Contact Info) Description 08/02/2014 8:30 AM EDT Follow-Up Hematology/Oncology at [address] [phone] Kirill Saavedra MD [facility] [address] [place] [address] Iman Liang RN Breast cancer, left breast; [...] SLN 2/2 positive, ER+/MI+, Her-2 unaplified. Subjective:I feel more tired HPI: Ms. Narda Rivera is 63 y.o. female Referred to us for consultation by Dr. Cohen on new diagnosis of breast cancer. She initially presenteda mass in her upper outer left breast with calcificationson a screening mammogram in December 2013.The main mass wasbiopsied showing infiltrating ductal and lobular carcinoma, ER positive, [id number]. MRI was then performed that showed the [...] count: Score = 3 Total Khalif Score: [place] Grade III: 8-9 points DCIS: Ductal Carcinoma [...] ER/MI/HER2: ER/MI/Her2 Comment: Please see prior biopsy [id number]. HER2 FISH will be repeated on this [...] fatigue documented in this encounter Care Teams Enamel Drier Relationship Specialty Start Date End Date Ag Trent MD [address] [place] [address] PCP - General 02/02/14 documented as of this encounter
--- OUTSIDE RECORDS SUMMARY | 2024-05-05 01:53 | XMS_ITS | Encounter Summary ---
Author Organization [facility] Address [facility] [place] [address] Care Team Providers Care Radiator Specialist Name Role Phone Ag Trent MD Primary Care Provider [phone] Encounter Details Date Type Department Care Team (Late st Contact Info) Description 07/06/2014 Notes Only Hematology [place] [address] Kirill Saavedra MD [facility] [address] [place] [address] Social History Tobacco Use Types Packs/Day Years [...] 14 phone call 07/06/14 Control arm A [id number]: Effects of an Exercise Intervention on Physical [...] although after having this checked out at [facility] in [place] it ws deemed not infected. Narda will continue on the study and her pedometer works and she has enough blank logs. documented in this encounter Plan of Treatment Not on file documented as of this encounter Visit Diagnoses Not on filedocumented in this encounter Care Teams Radiator Specialist Relationship Specialty Start Date End Date Ag Trent MD [address] [place] [address] PCP - General 02/02/14 documented as of this encounter
--- OUTSIDE RECORDS SUMMARY | 2024-05-05 01:53 | XMS_ITS | Encounter Summary ---
Author Organization [facility] Address [facility] [place] [address] Care Team Providers Care Roofing Subcontractor Name Role Phone Ag Trent MD Primary Care Provider [phone] Encounter Details Date Type Department Care Team (Late st Contact Info) Description 08/04/2014 Notes Only Hematology [place] [address] Kirill Saavedra MD [facility] DR [place] [address] Social History Tobacco Use Types Packs/Day Years [...] 18 phone call 08/03/14 Control arm A [id number]: Effects of an Exercise Intervention on Physical Activity during Chemotherapy for Patients with Early Stage Breast Cancer Call to Narda to obtain exercise log data from 07/26/14 - 08/01/14. Narda reported that she had exercised for a total of 98 min. She had danced, biked and used her hula hoop. When she was younger she had won Apply[employer] competitions and she feels this was a [...] on filedocumented in this encounter Care Teams Roofing Subcontractor Relationship Specialty Start Date End Date Ag Trent MD [address] [place] [address] PCP - General 02/02/14 documented as of this encounter
--- OUTSIDE RECORDS SUMMARY | 2024-05-05 01:53 | XMS_ITS | Encounter Summary ---
Author Organization [facility] Address [facility] [place] [address] Care Team Providers Care Skiagrapher Name Role Phone Ag Trent MD Primary Care Provider [phone] Reason for Visit * Reason Comments Chemotherapy Cycle 4 day 1 Encounter Details Date Type Department Care Team (Late st Contact Info) Description 07/26/2014 11:00 AM EDT Office Visit Hematology Oncology at [address] [phone] CLINIC, DR ARANGO HEM/ONC Breast [...] 373/ANC 2.41 IV ACCESS: Mediport accessed at [facility] Pre administration: Chemotherapy orders [...] Job Aid: Adult Flushing & Catheter Care (3454) job aid for additional information regarding guidelines [...] Job Aid: Adult Flushing & Catheter Care (6088) job aid for additional information regarding guidelines and administration., Routine Given 07/26/2014 1:55 PM EDT 20 mLs documented in this encounter Care Teams Skiagrapher Relationship Specialty Start Date End Date Ag Trent MD [address] [place] [address] PCP - General 02/02/14 documented as of this encounter
--- OUTSIDE RECORDS SUMMARY | 2024-05-05 01:53 | XMS_ITS | Encounter Summary ---
Author Organization [facility] Address [facility] [place] [address] Care Team Providers Care Printing Specialist Name Role Phone Ag Trent MD Primary Care Provider [phone] Encounter Details Date Type Department Care Team (Late st Contact Info) Description 06/07/2014 10:00 AM EDT Follow-Up Hematology Oncology at [address] [phone] Kirill Saavedra MD [facility] DR HEMATOLOGY [place] [address] Malignant neoplasm of left female breast (BREAST [...] 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 Subjective:I felt fatigued after chemo HPI: Mrs. Narda Rivera is 63 y.o. female Referred to us for consultation by Dr. Cohen on new diagnosis of breast cancer. She initially presenteda mass in her upper outer left breast with calcifications on a screening mammogram in December 2013.The main mass wasbiopsied showing infiltrating ductal andlobular carcinoma, ER positive, [id number]. MRI was then performed that showed the [...] ER/ID/HER2: ER/ID/Her2 Comment: Please see prior biopsy [id number]. HER2 FISH will be repeated on this [...] unspecified documented in this encounter Care Teams Printing Specialist Relationship Specialty Start Date End Date Ag Trent MD [address] [place] [address] PCP - General 02/02/14 documented as of this encounter
--- OUTSIDE RECORDS SUMMARY | 2024-05-05 01:53 | XMS_ITS | Encounter Summary ---
Author Organization [facility] Address [facility] [place] [address] [place] [address] Care Team Providers Care Timber Management Specialist Name Role Phone Ag Trent MD Primary Care Provider [phone] Reason for Visit * Reason Comments Follow-up Encounter Details Date Type Department Care Team (Late st Contact Info) Description 06/14/2014 9:00 AM EDT Follow-Up Hematology Oncology at [address] [phone] Kirill Saavedra MD [facility] DR [place] [address] Breast cancer, left breast; Hypokalemia; Mucositis Discharge [...] features, lymphovascular invasion present, SLN 2/2 positive, ER+/OR+, Her-2 unaplified. Subjective:I feel okay and exercise daily HPI: Mrs. Narda Rivera is 63 y.o. female Referred to us for consultation by Dr. Cohen on new diagnosis of breast cancer. She initially presenteda mass in her upper outer left breast with calcifications on a screening mammogram in December 2013.The main mass wasbiopsied showing infiltrating ductal andlobular carcinoma, ER positive, [id number]. MRI was then performed that showed the [...] slide reconstruction) MICROCALCIFICATIONS: Present in nonneoplastic tissue ER/OR/HER2: ER/OR/Her2 Comment: Please see prior biopsy [id number]. HER2 FISH will be repeated on this [...] cancer cells with immunostaining) Stain Intensity: Strong OR immunoreactivity: Positive (11-90% cancer cells with immunostaining) [...] features, lymphovascular invasion present, SLN 2/2 positive, ER+/OR+, Her-2 unaplified, T2,at least N1a, Mx Treatment:s/p [...] unspecified documented in this encounter Care Teams Timber Management Specialist Relationship Specialty Start Date End Date Ag Trent MD [address] [place] [address] PCP - General 02/02/14 documented as of this encounter
--- OUTSIDE RECORDS SUMMARY | 2024-05-05 01:53 | XMS_ITS | Encounter Summary ---
Author Organization [place] [address] Care Team Providers Care Structural Worker Name Role Phone Ag Trent MD Primary Care Provider [phone] Encounter Details Date Type Department Care Team (Late st Contact Info) Description 05/31/2014 Orders Only Hematology Oncology at [address] [phone] Ashley Elena, RN Mucositis Social History Tobacco [...] believes she has [facility] in the past. After phonecall to [facility] and [facility], able to determine that she has not had prescriptions filled at either pharmacy since 2012. After providing them with social security number they were able to determine her insurance information and said that she would have $143 copay for carafate and $36.41 copay for magic mouth wash prescription (as determined by calling [facility] that they had cancelled prescription as they can not provide that medication). Patient will plan to get magic mouthwash at [facility] in [facility] and carafate from mail order pharmacy ([facility]) documented in this encounter Plan of Treatment Not on file documented as of this encounter Visit Diagnoses Diagnosis Mucositis Stomatitis and mucositis, unspecified documented in this encounter Care Teams Structural Worker Relationship Specialty Start Date End Date Ag Trent MD [address] [place] [address] PCP - General 02/02/14 documented as of this encounter
--- OUTSIDE RECORDS SUMMARY | 2024-05-05 01:53 | XMS_ITS | Encounter Summary ---
Author Organization [facility] Address [facility] [place] [address] Care Team Providers Care Rock Picker Name Role Phone Ag Trent MD Primary Care Provider Encounter Details Date Type Department Care Team (Late st Contact Info) Description 08/02/2014 Orders Only Hematology/Oncology at [address] [phone] Kirill Saavedra MD [facility] DR HEMATOLOGY [place] [address] Social History Tobacco Use Types Packs/Day Years [...] on filedocumented in this encounter Care Teams Rock Picker Relationship Specialty Start Date End Date Ag Trent MD [address] [place] [address] PCP - General 02/02/14 documented as of this encounter
--- OUTSIDE RECORDS SUMMARY | 2024-05-05 01:53 | XMS_ITS | Encounter Summary ---
Author Organization [facility] Address [facility] [place] [address] Care Team Providers Care Construction Crew Member Name Role Phone Ag Trent MD Primary Care Provider [phone] Encounter Details Date Type Department Care Team (Latest Contact Info) Description 07/01/2014 12:06 PM EDT - 07/01/2014 11:59 PM EDT Hospital Encounter [place]ology [place] [phone] Kirill Saavedra MD [facility] DR HEMATOLOGY [place] [address] Malignant neoplasm of left female breast (BREAST [...] 06/28/2014 07/05/2014 magnesium oxide (MAG-OX) 400 mg TabletIndications:[place] cancer, left breast Take 1 tablet by mouth daily. 30 tablet 3 06/14/2014 07/05/2014 Lxylhfecp-Kibseqqku-Fp -Mag-Sim 564-16-913-40 mg/30 mL MouthwashIndications:M ucositis 5 mLs by [...] metabolic panel (non-fasting) (07/01/2014 12:28 PM EDT) [facility] Signature Glucose 175 60 - 199 mg/dL [facility] MILLENNIUM Comment:Diabetes: >=200 mg/d L plus symptoms Blood Urea Nitrogen 15 8 - 18 mg/dL [facility] MILLENNIUM Creatinine 0.80 0.70 - 1.20 mg/dL [facility] MILLENNIUM Comment: Please note that the pediatric reference intervals supplied above were not validated at [facility]. Results from pediatric patients should be interpreted [...] the following links into your internet browser. [email or web address]/DHnkdep [email or web address] Blood specimen (specimen) 07/01/2014 12:28 PM EDT 07/01/2014 12:43 PM EDT Narrative Resulting Agency Comment Spec In Lab Kirill Saavedra MD CHEMISTRY ORDERABLES [facility] documented in this encounter Visit Diagnoses Diagnosis Malignant neoplasm of left female breast (BREAST CANCER) Malignant neoplasm of breast (female), unspecified site Breast cancer, unspecified laterality documented in this encounter Care Teams Construction Crew Member Relationship Specialty Start Date End Date Ag Trent MD [address] [place] [address] PCP - General 02/02/14 documented as of this encounter
--- OUTSIDE RECORDS SUMMARY | 2024-05-05 01:53 | XMS_ITS | Encounter Summary ---
Author Organization [facility] Address [facility] [place] [address] Care Team Providers Care Tube Mill Operator Name Role Phone Ag Trent MD Primary Care Provider [phone] Encounter Details Date Type Department Care Team (Late st Contact Info) Description 06/15/2014 Notes Only Hematology [place] [address] Kirill Saavedra MD [facility] [address] [place] [address] Social History Tobacco Use Types Packs/Day Years [...] 11 phone call 06/15/14 Control arm A [id number]: Effects of an Exercise Intervention on Physical Activity during Chemotherapy for Patients with Early Stage Breast Cancer Nadra used her stationary bike 6/7 days in [...] on filedocumented in this encounter Care Teams Tube Mill Operator Relationship Specialty Start Date End Date Ag Trent MD [address] [place] [address] PCP - General 02/02/14 documented as of this encounter
--- OUTSIDE RECORDS SUMMARY | 2024-05-05 01:53 | XMS_ITS | Encounter Summary ---
Author Organization [facility] Address [facility] [place] [place] [address] Care Team Providers Care Camp Advisor Name Role Phone Ag Trent MD Primary Care Provider [phone] Reason for Visit * Reason Comments Follow-up Encounter Details Date Type Department Care Team (Late st Contact Info) Description 06/21/2014 10:00 AM EDT Follow-Up Hematology Oncology at [address] [phone] Kirill Saavedra MD [facility] DR HEMATOLOGY [place] [address] Breast cancer, left breast; Hypokalemia; Hypomagnesemia Discharge [...] SLN 2/2 positive, ER+/HI+, Her-2 unaplified. Subjective:I feel okay and exercise 10 minutes a day HPI: Ms. Narda Rivera is 63 y.o. female Referred to us for consultation by Dr. Cohen on new diagnosis of breast cancer. She initially presenteda mass in her upper outer left breast with calcificationson a screening mammogram in December 2013.The main mass wasbiopsied showing infiltrating ductal and lobular carcinoma, ER positive, [id number]. MRI was then performed that showed the [...] count: Mitotic count: Score = 3 Total O'Kean Score: O'Kean Grade III: 8-9 points DCIS: Ductal Carcinoma [...] ER/HI/HER2: ER/HI/Her2 Comment: Please see prior biopsy [id number]. HER2 FISH will be repeated on this [...] metabolism documented in this encounter Care Teams Camp Advisor Relationship Specialty Start Date End Date Ag Trent MD [address] [place] [address] PCP - General 02/02/14 documented as of this encounter
--- OUTSIDE RECORDS SUMMARY | 2024-05-05 01:53 | XMS_ITS | Encounter Summary ---
Author Organization [facility] Address [facility] [place] [address] Care Team Providers Care Registration Manager Name Role Phone Ag Trent MD Primary Care Provider [phone] Encounter Details Date Type Department Care Team (Late st Contact Info) Description 07/19/2014 11:00 AM EDT Office Visit Hematology Oncology at [address] [phone] CLINIC, DR ARAN[facility] HEM/ONC Kirill Saavedra MD [facility] HEMATOLOGY [place] [address] Breast cancer, left breast; Other specified prophylactic [...] (IV) Procedure: Accessing Implanted Vascular Access Devices (494) procedure and/or Intravenous (IV) Job Aid: Adult Flushing & Catheter Care (7483) job aid for additional information regarding guidelines [...] Job Aid: Adult Flushing & Catheter Care (9121) job aid for additional information regarding guidelines and administration., Routine Given 07/19/2014 1:39 PM EDT 20 mLs documented in this encounter Care Teams Registration Manager Relationship Specialty Start Date End Date Ag Trent MD [address] [place] [address] PCP - General 02/02/14 documented as of this encounter
--- OUTSIDE RECORDS SUMMARY | 2024-05-05 01:53 | XMS_ITS | Encounter Summary ---
Author Organization [facility] Address [facility] [place] [address] Care Team Providers Care Supervisor Spring Up Name Role Phone Ag Trent MD Primary Care Provider Encounter Details Date Type Department Care Team (Late st Contact Info) Description 06/17/2014 2:00 PM EDT Office Visit Hematology Oncology at [address] [phone] CLINIC, DR ARANGO HEM/ONC Urban Serrano MD [facility] [place] [address] Discharge Disposition: Home Social History Tobacco Use [...] filedocumented in this encounter Care Teams Supervisor Spring Up Relationship Specialty Start Date End Date Ag Trent MD [address] [place] [address] PCP - General 02/02/14 documented as of this encounter
--- OUTSIDE RECORDS SUMMARY | 2024-05-05 01:53 | XMS_ITS | Encounter Summary ---
Author Organization [facility] Address [facility] [place] [address] Care Team Providers Care Performance Instructor Name Role Phone Ag Trent MD Primary Care Provider [phone] Reason for Visit * Reason Onset Date Comments New Medication Request 06/14/2014 carafate Encounter Details Date Type Department Care Team (Late st Contact Info) Description 06/14/2014 Telephone Hematology Oncology at [address] [phone] Ashley Elena RN New Medication [...] 06/14/2014 9:25 AM EDT Phone call to [facility] pharmacy to follow up on status of [...] on filedocumented in this encounter Care Teams Performance Instructor Relationship Specialty Start Date End Date Ag Trent MD [address] [place] [address] PCP - General 02/02/14 documented as of this encounter
--- OUTSIDE RECORDS SUMMARY | 2024-05-05 01:53 | XMS_ITS | Encounter Summary ---
Author Organization [facility] Address [facility] [place] [address] Care Team Providers Care Resident Surgeon Name Role Phone Ag Trent MD Primary Care Provider [phone] Encounter Details Date Type Department Care Team (Late st Contact Info) Description 06/08/2014 Notes Only Hematology [place] [address] Kirill Saavedra MD [facility] DR HEMATOLOGY AND ONCOLOGY [place] [phone] Social History Tobacco Use Types Packs/Day Years [...] 10 phone call 06/08/14 Control arm A [id number]: Effects of an Exercise Intervention on Physical [...] on filedocumented in this encounter Care Teams Resident Surgeon Relationship Specialty Start Date End Date Ag Trent MD [address] [place] [address] PCP - General 02/02/14 documented as of this encounter
--- OUTSIDE RECORDS SUMMARY | 2024-05-05 01:53 | XMS_ITS | Encounter Summary ---
Author Organization [facility] Address [facility] [place] [place] [address] Care Team Providers Care Tank Farm Gauger Name Role Phone Ag Trent MD Primary Care Provider [phone] Reason for Visit * Reason Comments Chemotherapy Taxol Cycle 1 day 1 Encounter Details Date Type Department Care Team (Late st Contact Info) Description 05/24/2014 11:00 AM EST Office Visit Hematology Oncology at [address] [phone] CLIN[address], DR ARANGO HEM/ONC Kirill Saavedra MD [facility] [place] [address] Breast cancer, left breast; Other specified prophylactic [...] (IV) Procedure: Accessing Implanted Vascular Access Devices (334) procedure and/or Intravenous (IV) Job Aid: Adult Flushing & Catheter Care (2255) job aid for additional information regarding guidelines [...] Job Aid: Adult Flushing & Catheter Care (4231) job aid for additional information regarding guidelines and administration., Routine Given 05/24/2014 2:40 PM EST 20 mLs documented in this encounter Care Teams Tank Farm Gauger Relationship Specialty Start Date End Date Ag Trent MD [address] [place] [address] PCP - General 02/02/14 documented as of this encounter
--- OUTSIDE RECORDS SUMMARY | 2024-05-05 01:53 | XMS_ITS | Encounter Summary ---
Author Organization [facility] Address [facility] [place] [address] Care Team Providers Care Top Flavor Attendant Name Role Phone Ag Trent MD Primary Care Provider [phone] Reason for Visit * Reason Comments Chemotherapy Taxol - cycle 2, day 15 Encounter Details Date Type Department Care Team (Late st Contact Info) Description 06/28/2014 11:00 AM EDT Office Visit Hematology Oncology at [address] [phone] CLINIC, DR ARANGO HEM/ONC Kirill Saavedra MD [facility] [place] [address] Breast cancer, left breast; Other specified prophylactic [...] IV ACCESS: Mediport Right Chest, accessed at [facility] for labs At time of mediport de-access I observed that area around patient's mediport is reddened. There is a very small (0.1cm) hole top right (11:00) of her mediport. It appears that mediport is visible. Dr. Saavedra notified and assessed area. Prescription for Keflex 500mg QID sent to [facility], per patient request. Referral to [facility] Interventional Radiology for assessment. Pre [...] Job Aid: Adult Flushing & Catheter Care (7391) job aid for additional information regarding guidelines [...] Job Aid: Adult Flushing & Catheter Care (6485) job aid for additional information regarding guidelines and administration., Routine Given 06/28/2014 1:45 PM EDT 20 mLs documented in this encounter Care Teams Top Flavor Attendant Relationship Specialty Start Date End Date Ag Trent MD [address] [place] [address] PCP - General 02/02/14 documented as of this encounter
--- OUTSIDE RECORDS SUMMARY | 2024-05-05 01:53 | XMS_ITS | Encounter Summary ---
Author Organization [facility] Address [facility] [place] [address] Care Team Providers Care Pony Roll Finisher Name Role Phone Ag Trent MD Primary Care Provider [phone] Encounter Details Date Type Department Care Team (Late st Contact Info) Description 05/24/2014 1:30 PM EST Ancillary Appointment Hematology Oncology at [address] [phone] [facility] [place] [address] Social History Tobacco Use Types Packs/Day Years [...] Padilla, TIN - 05/24/2014 10:37 AM EST [facility] Dietitian Follow Up Assessment Seen By: Trish Padilla, MS, RD, MATHEMATICS DEPARTMENT CHAIR, LD Patient and diagnosis: Was asked to meet with pt by Dr. Rollins, was only able to meet briefly d/t3 kg wt loss in one week and mouth sores. Left 3.5 cm IDC with lobular features, lymphovascular invasion present, SLN 2/2 positive, ER+/CT+, Her-2 unaplified. Assessment: HPI: Patient Active Problem [...] reported to RNs that she declined to clam picker lydocaine as she felt it would not [...] on filedocumented in this encounter Care Teams Pony Roll Finisher Relationship Specialty Start Date End Date Ag Trent MD [address] [place] [address] PCP - General 02/02/14 documented as of this encounter
--- OUTSIDE RECORDS SUMMARY | 2024-05-05 01:53 | XMS_ITS | Encounter Summary ---
Author Organization [facility] Address [facility] [place] [address] Care Team Providers Care Spring Assembler Supervisor Name Role Phone Ag Trent MD Primary Care Provider [phone] Encounter Details Date Type Department Care Team (Late st Contact Info) Description 06/21/2014 1:00 PM EDT Ancillary Appointment Hematology Oncology at [address] [phone] [facility] [place] [address] Social History Tobacco Use Types Packs/Day Years [...] Padilla, TIN - 06/20/2014 4:00 PM EDT [facility] Dietitian Follow Up Assessment Seen By: Trish Padilla, MS, RD, EQUIPMENT HIRE MANAGER, LD Patient and diagnosis: Was asked to meet with pt by Dr. Rollins, was only able to meet briefly d/t3 kg wt loss in one week and mouth sores. Left 3.5 cm IDC with lobular features, lymphovascular invasion present, SLN 2/2 positive, ER+/WY+, Her-2 unaplified. Assessment: HPI: Patient Active Problem [...] levels, if suboptimal in 3-6 mos. The [facility] series from [facility] October 2008 showed a lower risk of [...] on filedocumented in this encounter Care Teams Spring Assembler Supervisor Relationship Specialty Start Date End Date Ag Trent MD [address] [place] [address] PCP - General 02/02/14 documented as of this encounter
--- OUTSIDE RECORDS SUMMARY | 2024-05-05 01:53 | XMS_ITS | Encounter Summary ---
Author Organization [facility] Address [facility] [place] [address] Care Team Providers Care Architectural Renderer Name Role Phone Ag Trent MD Primary Care Provider [phone] Reason for Visit * Reason Comments Breast Cancer chemotherapy Encounter Details Date Type Department Care Team (Late st Contact Info) Description 07/12/2014 11:00 AM EDT Office Visit Hematology Oncology at [address] [phone] CLINIC, DR ARANGO HEM/ONC Kirill Saavedra MD [facility] [place] [address] Malignant neoplasm of left female breast (BREAST [...] (IV) Procedure: Accessing Implanted Vascular Access Devices (224) procedure and/or Intravenous (IV) Job Aid: Adult Flushing & Catheter Care (6610) job aid for additional information regarding guidelines [...] Job Aid: Adult Flushing & Catheter Care (9859) job aid for additional information regarding guidelines and administration., Routine Given 07/12/2014 1:11 PM EDT 20 mLs documented in this encounter Care Teams Architectural Renderer Relationship Specialty Start Date End Date Ag Trent MD [address] [place] [address] PCP - General 02/02/14 documented as of this encounter
--- OUTSIDE RECORDS SUMMARY | 2024-05-05 01:53 | XMS_ITS | Encounter Summary ---
Author Organization [facility] Address [facility] [place] [address] Care Team Providers Care Hand Bulldozer Name Role Phone Ag Trent MD Primary Care Provider [phone] Encounter Details Date Type Department Care Team (Latest Contact Info) Description 07/01/2014 12:35 PM EDT - 07/01/2014 11:59 PM EDT Hospital [place] [phone] CLINIC, Kirill [facility] DR HEMATOLOGY [place] [address] Discharge Disposition: Home Social History Tobacco Use [...] 06/28/2014 07/05/2014 magnesium oxide (MAG-OX) 400 mg TabletIndications:[address] st cancer, left breast Take 1 tablet by mouth daily. 30 tablet 3 06/14/2014 07/05/2014 Hggwkpiko-Ytplssgxl-Bw -Mag-Sim [id number] mg/30 mL MouthwashIndications:M ucositis 5 mLs by [...] by mouth daily. 30 tablet 3 ??? Vdgxuaqft-Kubdbigzv-Fh-Mag-Sim [id number] mg/30 mL Mouthwash 5 mLs by Mucous [...] with the plan. Samra Farley MD. Page #[id number] * Josefina Glass RN - 06/29/2014 4:29 PM EDT ANGIO/VIR NURSING DATABASE Name: NARDA FRAZIER Date of : 1950 AGE 63 y.o. Address: [address] [place] [phone] (home) Mobile: No relevant phone numbers on [...] PARTIAL performed by Ibrahima Cohen MD at [facility] MAIN OR ??? Bx/remv, lymph node, deep axill Left 02/22/2014 BIOPSY OR EXCISION OF LYMPH NODE(S), OPEN, DEEP AXILLARY NODE(S) performed by Ibrahima Cohen MD at [facility] MAIN OR ??? Identify sentinel node Left 02/22/2014 SENTINEL NODE INJECTION performed by Ibrahima Cohen MD at [facility] MAIN OR ??? Left 02/22/2014 MODIFIER SENTINEL NODE EXCISION performed by Ibrahima Cohen MD at [facility] MAIN OR Date/Procedure Comments: 03/18/14 Mediport placement [...] by mouth daily. 06/14/14 Kirill Saavedra MD Pjhajmrww-Dbjmfglyy-Io-Mag-Sim [id number] mg/30 mL Mouthwash 5 mLs by Mucous Membrane route every 2 hours as needed. 05/31/14 Kirill Saavedra MD sucralfate (CARAFATE) 100 mg/mL Suspension Take 10 mLs by mouth 4 times daily. 05/31/14 Kriill Saavedra MD potassium chloride (K-DUR/KLOR-CON) 20 mEq [...] informed this patient that they require a bulk delivery driver to be present and in the building to drive them home after this procedure. In the absence of a bulk delivery driver, IR will not be able to perform this procedure and will need to reschedule. Pt verbalized understanding of these i nstructions during the pre-procedure education via phone. (initials) documented in this encounter Plan of Treatment Not on file documented as of this encounter Visit Diagnoses Not on filedocumented in this encounter Care Teams Hand Bulldozer Relationship Specialty Start Date End Date Ag Trent MD [address] [place] [address] PCP - General 02/02/14 documented as of this encounter
--- OUTSIDE RECORDS SUMMARY | 2024-05-05 01:53 | XMS_ITS | Encounter Summary ---
Author Organization [facility] Address [facility] [place] [address] Care Team Providers Care Box Truck Driver Name Role Phone Ag Trent MD Primary Care Provider [phone] Encounter Details Date Type Department Care Team (Late st Contact Info) Description 06/29/2014 Notes Only Hematology [place] [address] Kirill Saavedra MD [facility] DR HEMATOLOGY AND ONCOLOGY [place] [id number] Social History Tobacco Use Types Packs/Day Years [...] 13 phone call 06/29/14 Control arm A [id number]: Effects of an Exercise Intervention on Physical [...] with an opening). She has tocome to [place] to have this checked out on Friday07/01/14. Narda agrees to continue on study. documented in this encounter Plan of Treatment Not on file documented as of this encounter Visit Diagnoses Not on filedocumented in this encounter Care Teams Box Truck Driver Relationship Specialty Start Date End Date Ag Trent MD [address] [place] [address] PCP - General 02/02/14 documented as of this encounter
--- OUTSIDE RECORDS SUMMARY | 2024-05-05 01:53 | XMS_ITS | Encounter Summary ---
Author Organization [facility] Address [facility] [place] [address] Care Team Providers Care Setter Off Name Role Phone Ag Trent MD Primary Care Provider [phone] Reason for Visit * Reason Comments Chemotherapy Encounter Details Date Type Department Care Team (Jonathan st Contact Info) Description 08/02/2014 9:30 AM EDT Infusion Hematology Oncology at [address] [phone] CLINIC, DR ARANGO HEM/ONC Breast [...] Job Aid: Adult Flushing & Catheter Care (0559) job aid for additional information regarding guidelines [...] Job Aid: Adult Flushing & Catheter Care (0010) job aid for additional information regarding guidelines and administration., Routine Given 08/02/2014 2:12 PM EDT 20 mLs documented in this encounter Care Teams Setter Off Relationship Specialty Start Date End Date Ag Trent MD [address] [place] [address] PCP - General 02/02/14 documented as of this encounter
--- OUTSIDE RECORDS SUMMARY | 2024-05-05 01:53 | XMS_ITS | Encounter Summary ---
Author Organization [facility] [place] [address] Care Team Providers Care Delivery Coordinator Name Role Phone Ag Trent MD Primary Care Provider [phone] Reason for Visit * Reason Onset Date Comments New Medication Request 06/21/2014 Encounter Details Date Type Department Care Team (Late st Contact Info) Description 06/21/2014 Telephone Hematology Oncology at [address] [phone] Ashley Elena, RN New Medication [...] on filedocumented in this encounter Care Teams Delivery Coordinator Relationship Specialty Start Date End Date Ag Trent MD [address] [place] [address] PCP - General 02/02/14 documented as of this encounter
--- OUTSIDE RECORDS SUMMARY | 2024-05-05 01:53 | XMS_ITS | Encounter Summary ---
Author Organization [facility] Address [facility] [place] [address] Care Team Providers Care Utility Locate Technician Name Role Phone Ag Trent MD Primary Care Provider [phone] Reason for Visit * Reason Comments Follow-up Encounter Details Date Type Department Care Team (Late st Contact Info) Description 07/19/2014 10:00 AM EDT Follow-Up Hematology Oncology at [address] [phone] Kirill Saavedra MD [facility] [address] [place] [address] Malignant neoplasm of left female breast (BREAST [...] 2/2 positive, ER+/KS+, Her-2 unaplified. Subjective:I felt hyper HPI: Ms. Narda Rivera is 63 y.o. female Referred to us for consultation by Dr. Cohen on new diagnosis of breast cancer. She initially presenteda mass in her upper outer left breast with calcificationson a screening mammogram in December 2013.The main mass wasbiopsied showing infiltrating ductal and lobular carcinoma, ER positive, [id number]. MRI was then performed that showed the [...] ER/KS/HER2: ER/KS/Her2 Comment: Please see prior biopsy [id number]. HER2 FISH will be repeated on this [...] nausea and grade 1 rash. Will proceed [id number] dose of weekly Taxol today 2. Hypokalemia/hypomagnesimia: [...] alone documented in this encounter Care Teams Utility Locate Technician Relationship Specialty Start Date End Date Ag Trent MD [address] [place] [address] PCP - General 02/02/14 documented as of this encounter
--- OUTSIDE RECORDS SUMMARY | 2024-05-05 01:53 | XMS_ITS | Encounter Summary ---
Author Organization [facility] [place] [address] Care Team Providers Care Milling Machine Operator Name Role Phone Ag Trent MD Primary Care Provider Encounter Details Date Type Department Care Team (Late st Contact Info) Description 06/14/2014 Orders Only Hematology Oncology at [address] [phone] Ashley Elena, RN Breast cancer, left breast [...] site documented in this encounter Care Teams Milling Machine Operator Relationship Specialty Start Date End Date Ag Trent MD [address] [place] [address] PCP - General 02/02/14 documented as of this encounter
--- OUTSIDE RECORDS SUMMARY | 2024-05-05 01:53 | XMS_ITS | Encounter Summary ---
Author Organization [facility] Address [facility] [place] [address] Care Team Providers Care Field Assembly Supervisor Name Role Phone Ag Trent MD Primary Care Provider [phone] Reason for Visit * Reason Comments Chemotherapy Taxol CY 1 day 15 Encounter Details Date Type Department Care Team (Late st Contact Info) Description 06/07/2014 11:00 AM EDT Office Visit Hematology Oncology at [address] [phone] CLINIC, DR ARANGO HEM/ONC Kirill Saavedra MD [facility] HEMATOLOGY [place] [address] Breast cancer, left breast; Other specified prophylactic [...] Progress Notes * Marie Eli RN - 06/07/2014 4:02 PM EDT INFUSION THERAPY ADMINISTRATION NOTES DIAGNOSIS: Breast Cancer CYCLE #: 1 day 15 REASON FOR VISIT: SUBJECTIVE Narda offers no [...] 10 mg, Intravenous, ONCE, 1 dose, On Fri06/07/14 at 1130, Administer 30 minutes prior to PACLitaxel Given 06/07/2014 11:52 AM EDT 10 mg diphenhydrAMINE (BENADRYL) injection 25 mg 25 mg, Intravenous, ONCE, 1 dose, On Fri06/07/14 at 1130, Administer 30 minutes prior to PACLitaxel, Routine Given 06/07/2014 11:58 AM EDT 25 mg famotidine (PEPCID) infusion 20 mg 20 mg, Intravenous, ONCE, 1 dose, On Fri06/07/14 at 1130, Administer over 15 Minutes, Administer 30 minutes prior to PACLitaxel Given 06/07/2014 12:03 PM EDT 20 mg 200 mL/hr heparin, porcine 100 unit/mL flush 500 Units 500 Units, Intravenous, ONCE PRN, Starting on Fri06/07/14 at 1112, Until Fri06/07/14 at 1806, Line Care, Refer to Intravenous (IV) Procedure: Accessing Implanted Vascular Access Devices (874) procedure and/or Intravenous (IV) Job Aid: Adult Flushing & Catheter Care (7984) job aid for additional information regarding guidelines and administration., Routine Given 06/07/2014 1:58 PM EDT 500 Units ondansetron (ZOFRAN) tablet 16 mg 16 mg, Oral, ONCE, 1 dose, On Fri06/07/14 at 1130, Administer prior to chemotherapy, Routine Given 06/07/2014 11:52 AM EDT 16 mg PACLitaxel (TAXOL) 154 mg in dextrose 5% Non-PVC 275.6667 mL chemo infusion 154 mg (rounded from 154.4 mg = 80 mg/m2/dose ? 1.93 m2 Treatment Plan BSA from Recorded weight), Intravenous, ONCE, 1 dose, On Fri06/07/14 at 1230, Administer over 60 Minutes New Bag 06/07/2014 12:55 PM EDT 154 mg 276 mL/hr sodium chloride 0.9 % flush 5-20 mL 5-20 mL, Intravenous, EVERY 1 MIN PRN, Starting on Fri06/07/14 at 1112, Until Fri06/07/14 at 1806, Line Care, Flush pertains to all indwelling lines. Flush per protocol found in the job aid using the link provided on this medication record. Refer to Intravenous (IV) Job Aid: Adult Flushing & Catheter Care (5837) job aid for additional information regarding guidelines and administration., Routine Given 06/07/2014 1:58 PM EDT 20 mLs documented in this encounter Care Teams Field Assembly Supervisor Relationship Specialty Start Date End Date Ag Trent MD [address] [place] [address] PCP - General 02/02/14 documented as of this encounter
--- OUTSIDE RECORDS SUMMARY | 2024-05-05 01:53 | XMS_ITS | Encounter Summary ---
Author Organization [facility] Address [facility] [place] [address] Care Team Providers Care Guest Relations Executive Name Role Phone Ag Trent MD Primary Care Provider [phone] Reason for Visit * Reason Comments Chemotherapy Taxol Encounter Details Date Type Department Care Team (Jonathan st Contact Info) Description 07/05/2014 11:00 AM EDT Office Visit Hematology Oncology at [address] [phone] CLINIC, DR ARANGO HEM/ONC Kirill Saavedra MD [facility] HEMATOLOGY [place] [address] Breast cancer, left breast; Other specified prophylactic [...] (IV) Procedure: Accessing Implanted Vascular Access Devices (124) procedure and/or Intravenous (IV) Job Aid: Adult Flushing & Catheter Care (7784) job aid for additional information regarding guidelines [...] Job Aid: Adult Flushing & Catheter Care (1194) job aid for additional information regarding guidelines and administration., Routine Given 07/05/2014 1:39 PM EDT 20 mLs documented in this encounter Care Teams Guest Relations Executive Relationship Specialty Start Date End Date Ag Trent MD [address] [place] [address] PCP - General 02/02/14 documented as of this encounter
--- OUTSIDE RECORDS SUMMARY | 2024-05-05 01:53 | XMS_ITS | Encounter Summary ---
Author Organization [facility] Address [facility] [place] [address] Care Team Providers Care Audit Senior Associate Name Role Phone Ag Trent MD Primary Care Provider [phone] Encounter Details Date Type Department Care Team (Late st Contact Info) Description 05/17/2014 Notes Only Hematology and Oncology at [facility] [place] [address] Alba Castillo MD [facility] DR HEMATOLOGY [place] [address] Social History Tobacco Use Types Packs/Day Years [...] 7 phone call 05/17/14 Control arm A [id number]: Effects of an Exercise Intervention on Physical [...] on filedocumented in this encounter Care Teams Audit Senior Associate Relationship Specialty Start Date End Date Ag Trent MD [address] [place] [address] PCP - General 02/02/14 documented as of this encounter
--- OUTSIDE RECORDS SUMMARY | 2024-05-05 01:54 | XMS_ITS | Encounter Summary ---
Author Organization [facility] Address [facility] [place] [address] Care Team Providers Care Remote Encoding Operations Supervisor Name Role Phone Ag Trent MD Primary Care Provider [phone] Reason for Visit * Reason Comments Other Encounter Details Date Type Department Care Team (Late st Contact Info) Description 04/05/2014 Telephone Hematology [place] [phone] Yulissa Mcguire Social History Tobacco Use Types [...] on filedocumented in this encounter Care Teams Remote Encoding Operations Supervisor Relationship Specialty Start Date End Date Ag Trent MD [address] [place] [address] PCP - General 02/02/14 documented as of this encounter
--- OUTSIDE RECORDS SUMMARY | 2024-05-05 01:54 | XMS_ITS | Encounter Summary ---
Author Organization [facility] Address [facility] [place] [address] Care Team Providers Care Director Of Vendor Management Name Role Phone Ag Trent MD Primary Care Provider [phone] Encounter Details Date Type Department Care Team (Late st Contact Info) Description 03/22/2014 10:00 AM EST Office [place] [address] Jillian Kaur, PT Kirill Saavedra MD [facility] [address] HEMATOLOG[place] [address] Breast swelling Discharge Disposition: Home Social History [...] , Radiation, Hormonal, Social: Pt. lives near [place] lives alone Work: retired from [employer] Function/exercise history: Pt had been swimming 2X [...] 10 min 5 days a week Therapy Detention Goals: 6 weeks 1. Full scar mobility [...] follow up closer to her home near [facility] with Zena Martin PT Treatment: As needed per primary therapist Frequency and Duration: Follow up with Zena Martin in [facility] The plan has been discussed with the patient and she has agreed with it. @ct documented in this encounter Plan of Treatment Not on file documented as of this encounter Visit Diagnoses Diagnosis Breast swelling Lump or mass in breast documented in this encounter Care Teams Director Of Vendor Management Relationship Specialty Start Date End Date Ag Trent MD [address] [place] [address] PCP - General 02/02/14 documented as of this encounter
--- OUTSIDE RECORDS SUMMARY | 2024-05-05 01:54 | XMS_ITS | Encounter Summary ---
Author Organization [facility] Address [facility] [place] [address] Care Team Providers Care Wildlife Rehabilitator Name Role Phone Ag Trent MD Primary Care Provider [phone] Encounter Details Date Type Department Care Team (Late st Contact Info) Description 03/15/2014 Orders Only [place] [address] Kirill Saavedra MD [facility] [address] HEMATOLOGY [place] [address] Social History Tobacco Use Types Packs/Day Years [...] is a Non-reportable exam Kirill Saavedra MD [facility] FILM LIBRARY ORD ERABLES documented in this encounter Visit Diagnoses Not on filedocumented in this encounter Care Teams Wildlife Rehabilitator Relationship Specialty Start Date End Date Ag Trent MD [address] [place] [address] PCP - General 02/02/14 documented as of this encounter
--- OUTSIDE RECORDS SUMMARY | 2024-05-05 01:54 | XMS_ITS | Encounter Summary ---
Author Organization [facility] Address [facility] [place] [address] Care Team Providers Care State Attorney Name Role Phone Ag Trent MD Primary Care Provider [phone] Encounter Details Date Type Department Care Team (Late st Contact Info) Description 03/18/2014 Notes Only Hematology [place] [address] Kirill Saavedra MD [facility] DR HEMATOLOGY [place] [address] Social History Tobacco Use Types Packs/Day Years [...] 03/21/2014 11:15 AM EST Research Nurse Note [id number]: Effects of an Exercise Intervention on Physical [...] on filedocumented in this encounter Care Teams State Attorney Relationship Specialty Start Date End Date Ag Trent MD [address] [place] [address] PCP - General 02/02/14 documented as of this encounter
--- OUTSIDE RECORDS SUMMARY | 2024-05-05 01:54 | XMS_ITS | Encounter Summary ---
Author Organization [facility] Address [facility] [place] [address] Care Team Providers Care Alpaca Farmer Name Role Phone Ag Trent MD Primary Care Provider [phone] Reason for Visit * Reason Comments Chemotherapy AC - CY1 DAY 1 Encounter Details Date Type Department Care Team (Late st Contact Info) Description 03/29/2014 11:30 AM EST Office Visit Hematology Oncology at [address] [address] Kirill Saavedra MD [facility] DR HEMATOLOGY [place] [address] Malignant neoplasm of left female breast (BREAST [...] clinic hours (8am-5pm Friday-Friday): pt. can call [phone] with questions or concerns. After clinic hours (5pm-8am Friday-Friday and weekends) pt can call [phone] and ask for the software security architect/oncologist television engineering teacher. Narda Rivera verbalized understanding of potential chemotherapy [...] Job Aid: Adult Flushing & Catheter Care (0421) job aid for additional information regarding guidelines [...] Job Aid: Adult Flushing & Catheter Care (4994) job aid for additional information regarding guidelines and administration., Routine Given 03/29/2014 2:59 PM EST 20 mLs documented in this encounter Care Teams Alpaca Farmer Relationship Specialty Start Date End Date Ag Trent MD [address] [place] [address] PCP - General 02/02/14 documented as of this encounter
--- OUTSIDE RECORDS SUMMARY | 2024-05-05 01:54 | XMS_ITS | Encounter Summary ---
Author Organization [facility] Address [facility] [place] [address] Care Team Providers Care Contact Lens Assistant Name Role Phone Ag Trent MD Primary Care Provider [phone] Reason for Visit * Reason Comments Radiation Consult Encounter Details Date Type Department Care Team (Late st Contact Info) Description 03/17/2014 1:30 PM EST Office Visit Radiation Oncology at [address] [address] Clau Alfonso MD [facility] [place] [address] Malignant neoplasm of left female breast Discharge [...] who underwent a screening mmg in 01/11, w/[facility] interp: L breast lesion 1, SUSPICIOUS,14 mm mass @ 0100. L breast lesion 2, SUSPICIOUS, 3.8 mm mass @ 0100, 12 mm from lesion 1. R breastneg. 02/02/14 US guided core needle bxs L breast mass @ 0100. Path: Invasive mammary ca w/ductal & lobular features. LVI present. ER+NE+. [id number] IHC neg. 02/08/14 B breast MRI: L [...] = 0.6 - 0.8 cm; pT2 pN1a. [id number] FISH neg. Comment: Multiple satellite foci of [...] PARTIAL performed by Ibrahima Cohen MD at [facility] OR ??? Bx/remv, lymph node, deep axill Left 02/22/2014 BIOPSY OR EXCISION OF LYMPH NODE(S), OPEN, DEEP AXILLARY NODE(S) performed by Ibrahima Cohen MD at [facility] OR ??? Identify sentinel node Left 02/22/2014 SENTINEL NODE INJECTION performed by Ibrahima Cohen MD at [facility] OR ??? Left 02/22/2014 MODIFIER SENTINEL NODE EXCISION performed by Ibrahima Cohen MD at [facility] OR S/p R TKR R leg fx [...] Breast, L, IDC w/lobular features; high gr; ER+NE+, [id number]-, s/p lumpectomy & SNB, pT2 pN1a, stage [...] weakness & difficulty coordinating left hand/arm; tiredness. Late/buttermaker helper side effects of xrt discussed include: Treated [...] and PATHOLOGY: mass left upper outer breast. ER/NE positive, Her 2 carina neg. REVIEW OF [...] [ ] Not satisfied SOCIAL ASSESSMENT: See [facility] social assessment information entered. Support Systems: [...] site documented in this encounter Care Teams Contact Lens Assistant Relationship Specialty Start Date End Date Ag Trent MD [address] [place] [id number] PCP - General 02/02/14 documented as of this encounter
--- OUTSIDE RECORDS SUMMARY | 2024-05-05 01:54 | XMS_ITS | Encounter Summary ---
Author Organization [facility] Address [facility] [place] [address] Care Team Providers Care Sustain Engineer Name Role Phone Ag Trent MD Primary Care Provider [phone] Encounter Details Date Type Department Care Team (Late st Contact Info) Description 04/27/2014 Notes Only H[place]ology [place] [address] Kirill Saavedra MD [facility] [address] [place] [address] Social History Tobacco Use Types Packs/Day Years [...] 4 phone call 04/27/2014 Control arm A [id number]: Effects of an Exercise Intervention on Physical [...] on filedocumented in this encounter Care Teams Sustain Engineer Relationship Specialty Start Date End Date Ag Trent MD [address] [place] [address] PCP - General 02/02/14 documented as of this encounter
--- OUTSIDE RECORDS SUMMARY | 2024-05-05 01:54 | XMS_ITS | Encounter Summary ---
Author Organization [facility] Address [facility] [place] [address] Care Team Providers Care Model Set Artist Name Role Phone Ag Trent MD Primary Care Provider [phone] Encounter Details Date Type Department Care Team (Late st Contact Info) Description 04/19/2014 Notes Only [place] [id number] Kiirll Saavedra MD [facility] DR HEMATOLOGY [place] [address] Social History Tobacco Use Types Packs/Day Years [...] 3 phone call 04/19/14 Control arm A [id number]: Effects of an Exercise Intervention on Physical [...] filedocumented in this encounter Care Teams Model Set Artist Relationship Specialty Start Date End Date Ag Trent MD [address] [place] [address] PCP - General 02/02/14 documented as of this encounter
--- OUTSIDE RECORDS SUMMARY | 2024-05-05 01:54 | XMS_ITS | Encounter Summary ---
Author Organization [facility] Address [facility] [place] [address] Care Team Providers Care Adjuster Name Role Phone Ag Trent MD Primary Care Provider [phone] Encounter Details Date Type Department Care Team (Latest Contact Info) Description 03/18/2014 9:06 AM EST - 03/18/2014 11:59 PM EST Hospital [place] [phone] Kirill Saavedra MD [facility] [address] [place] [address] Malignant neoplasm of left female breast (BREAST [...] Sign Reading Time Taken Comments Blood Pressure 162/96 03/18/2014 11:16 AM EST Pulse 65 03/18/2014 11:16 AM EST Temperature 36.2 ??C (97.2 ??F) 03/18/2014 10:[address] Respiratory Rate 18 03/18/2014 11:16 AM EST Oxygen Saturation 94% 03/18/2014 11:16 AM EST Inhaled Oxygen Concentration - - Weight - - Height - - Body Mass Index - - documented in this encounter Discharge Instructions * Discharge Instructions* Beba Haynes RN - 03/18/2014 10:58 AM EST Images from the original note were not included. [facility] Department of Vascular and Interventional Radiology Discharge Instructions for your Chest Port You have received a ???Power Port?? , which provides access for infusions and blood draws. What makes this a ???Power Port?? is the unique ability to ???power inject?? contrast (intravenous dye) through the port when getting a CT scan, which produces superior images (pictures). Patients who don???t have these special ports need to have an IV started if they need dye injected for their CT scan. Your port is printed with the letters ???CT?? which can be detected by x- ray to identify it as a ???Power Port?? . You will be provided with an ID card stating the financial controller and type of port you have. Please carry this with you in a safe place. . You have received a Mediport/Chestport, which provides access for infusions/ blood draws. Bandage: There is a sterile dressing over the port site consisting of small gauze with a clear dressing (Tegaderm or [id number] ). This dressing should be left in place for 48 hours. If the clear dressing becomes loose you should place tape over the edges to secure it in place. Note: If you have steri-strips beneath your dressing, simply allow them to fall off. Do not peel them off. Bathing: Do not take a shower until 48 hours after your port is placed; after this time you may shower with the dressing in place, then remove it and pat your skin dry. After 48 hours, we recommend that you cover the area with THE AQUA GUARD PROVIDED for 1 week while showering, facing away from theshower stream. You may use a bandaid to cover the site after the 48 hours are up if there is any drainage. No tub baths, whirlpools or swimming for one week following port placement. What to expect when your port is accessed: 1. You may feel tenderness the first few times it is accessed but generally this subsides over time. Ask your healthcare provider to use a local anesthetic on the site if discomfort is a problem for you. You may ask for a prescription for a topical cream (EMLA) from your clinician; you may apply athome prior to your appointments, to help numb the skin over your port. 2. The clinician should be wearing sterile gloves and a mask during the access procedure. Anyone inthe room with you should also have a mask on. 3. The skin over and 2 inches around the port should be cleaned with a disinfectant 4. Tell the clinician if you would like the skin numbed (lidocaine) before the access needle is placed. 5. Unless you are unable to take heparin (blood thinner), the port should be injected with a heparin solution before deaccess (at end of each treatment or blood draw). When to call your healthcare provider: ??? If you notice bleeding from the puncture site in your neck, or from the port incision on your chest, you should apply firm pressure over the site for 10-15 minutes, keeping the site covered. Callif you are still bleeding after 10-15 minutes. ??? If you develop pain, redness, drainage or swelling at or around the port site, or the puncture site in the neck ??? If you develop fever (elevation of more than 2 degrees or greater than 101F) and/or shaking chills When to call the Interventional Radiology Department: Please call with any questions or concerns. If it is during regular office hours, please call [phone]. If it is after regular office hours, or on weekends or holidays, please call [phone] and ask to speak to the Donor Relations Associate injection maintenance technician for Interventional Radiology. XXX You have received medication during your procedure to help lesson anxiety and keep you comfortable. These medications affect judgement and reaction time. We [...] drainage occurs, please contact your M. D. Revised 04/12/11 documented in this encounter Medications at Time [...] as of this encounter Progress Notes * Evita Peters RN - 03/18/2014 10:14 AM EST [facility] NURSING DATABASE Name: NARDA FRAZIER Date of : 1950 AGE 63 y.o. Address: [address] [place] [phone] (home) Mobile: No relevant phone numbers on file. Referring Provider: Kirill Saavedra Reason for Visit: Mediport placement new diagnosis of breast cancer with positive lymph nodes, plan for chemotherapy with doxorubicin and cyclophosphamide Allergies Allergen Reactions ??? Narcotic Antagonist Nausea And Vomiting ??? Coumadin [Warfarin] Severe bleeding ??? Oxycodone Unable to tolerate opiates Pertinent PMH: Patient Active Problem List Diagnosis Code ??? Malignant neoplasm of left female breast (BREAST CANCER) 174.9 Past Medical History No past medical history on file. Pertinent PSH: Past Surgical History Past Surgical History Procedure Laterality Date ??? Mastectomy, partial Left 02/22/2014 MASTECTOMY PARTIAL performed by Ibrahima Cohen MD at [facility] MAIN OR ??? Bx/remv, lymph node, deep axill Left 02/22/2014 BIOPSY OR EXCISION OF LYMPH NODE(S), OPEN, DEEP AXILLARY NODE(S) performed by Ibrahima Cohen MD at [facility] MAIN OR ??? Identify sentinel node Left 02/22/2014 SENTINEL NODE INJECTION performed by Ibrahima Cohen MD at [facility] OR ??? Left 02/22/2014 MODIFIER SENTINEL NODE EXCISION performed by Ibrahima Cohen MD at [facility] MAIN OR Date/Procedure Comments: 03/18/14 Mediport placement Ancef 1gm IV, Valium 10mg PO. Pt refused IV sedation medications. Tolerated well. Laboratory Results: No results found for this basename: inr No results found for this basename: PT, PTT Lab Results Component Value Date BUN 18 02/08/2014 Lab Results Component Value Date CREATININE 0.75 02/08/2014 Lab Results Component Value Date K 3.6 02/08/2014 Lab Results Component Value Date PLATELET 281 02/08/2014 Medications: Prior to Admission medications Medication Sig Start Date End Date Taking? Authorizing Provider ondansetron (ZOFRAN) 8 mg Tablet Take 1 tablet by mouth every 8 hours as needed for Nausea. 03/08/14Kirill Saavedra MD dexamethasone (DECADRON) 4 mg Tablet Take 1 tablet by mouth 2 times daily as needed. Take twice daily x 2 days following chemo, then twice daily as needed 03/08/14 Kirill Saavedra MD dronabinol (MARINOL) 5 mg Capsule Take 1 capsule by mouth 2 times daily as needed. 03/08/14 Kirill Saavedra MD oxyCODONE (ROXICODONE) 5 mg Tablet [...] 81 mg by mouth daily. Provider, Historical For outpatient procedures: I have informed this patient that they require a limousine driver to drive them home after this procedure. In the absence of a limousine driver, IR will not be able to perform this procedure and will need to reschedule. Pt verbalized understanding of these instructions during the pre-procedure education via phone. (initials) Pt has informed caller that blood thinner was stopped on per MD order. * Devin Mijares MD - 03/17/2014 11:26 AM EST VASCULAR AND INTERVENTIONAL RADIOLOGY FOCUSED H&P and PRE-PROCEDURE NOTE: PCP: AG TRENT MD Referring Physician: Kirill Saavedra Planned Procedure: mediport placement Procedure Indication: new diagnosis of breast cancer with positive lymph nodes, plan for chemotherapy with doxorubicin and cyclophosphamide Presenting Diagnosis/ Complaint: Narda Frazier is a 63 y.o. female with left BCa s/p partial mastectomy and axillary node dissection. Past Medical/Surgical History: Patient Active Problem List Diagnosis Code ??? Malignant neoplasm of left female breast (BREAST CANCER) 174.9 No past medical history on file. Past Surgical History Procedure Laterality Date ??? Mastectomy, partial Left 02/22/2014 MASTECTOMY PARTIAL performed by Ibrahima Cohen MD at [facility] MAIN OR ??? Bx/remv, lymph node, deep axill Left 02/22/2014 BIOPSY OR EXCISION OF LYMPH NODE(S), OPEN, DEEP AXILLARY NODE(S) performed by Ibrahima Cohen MD at [facility] OR ??? Identify sentinel node Left 02/22/2014 SENTINEL NODE INJECTION performed by Ibrahima Cohen MD at [facility] OR ??? Left 02/22/2014 MODIFIER SENTINEL NODE EXCISION performed by Ibrahima Cohen MD at [facility] OR Medications: Current Outpatient Prescriptions on File Prior to Encounter Medication Sig Dispense Refill ??? ondansetron (ZOFRAN) 8 mg Tablet Take 1 tablet by mouth every 8 hours as needed for Nausea. 60 tablet 1 ??? dexamethasone (DECADRON) 4 mg Tablet Take 1 tablet by mouth 2 times daily as needed. Take twicedaily x 2 days following chemo, then twice daily as needed 180 tablet 1 ??? dronabinol (MARINOL) 5 mg Capsule Take 1 capsule by mouth 2 times daily as needed. 60 capsule 3 ??? oxyCODONE (ROXICODONE) 5 mg Tablet Take [...] facility-administered medications on file prior to encounter. Allergies: Narcotic antagonist; Coumadin; and Oxycodone Social History and Habits: History Social History ??? Marital Status: Spouse Name: N/A Number of Children: N/A ??? Years of Education: N/A Occupational History ??? Not on file. Social History Main Topics ??? Smoking status: Never Smoker ??? Smokeless tobacco: Not on file ??? Alcohol Use: No ??? Drug Use: Yes Special: Marijuana ??? Sexual Activity: Not on file Other Topics Concern ??? Not on file Social History Narrative Significant Family History: Family History Problem Relation Age of Onset ??? Breast Cancer Mother 65 Pertinent ROS: as per HPI Labs: Lab Results Component Value Date WBC 7.8 02/08/2014 HCT 47.5* 02/08/2014 PLATELET 281 02/08/2014 BUN 18 02/08/2014 CREATININE 0.75 02/08/2014 ALKPHOS 92 02/08/2014 AST 14 02/08/2014 ALBUMIN 4.4 02/08/2014 BILIDIR 0.1 02/08/2014 BILITOT 0.2 02/08/2014 ALT 14 02/08/2014 PROT 7.6 02/08/2014 Imaging: reviewed Physical Exam: Pending (to be performed in angio the day of procedure) ASA: Pending (to be assessed in angio the day of procedure) Mallampati Class: Pending (to be assessed in angio the day of procedure) Assessment: 63 y.o. female with breast cancer requiring Requires fpc vascular access for administration of chemo Plan: mediport placement Labs to be performed day of procedure: none Medication to STOP: ASA Sedation: Moderate sedation per IR RN protocols Prophylactic antibiotic: ancef Additional medications for procedure: none Planned access site: RIJV Position: supine Consent: Pending - Devin Mijares MD (Pager #[phone]) 03/17/2014 documented in this encounter Procedure Notes * Brittny Vaughn PA - 03/18/2014 11:28 AM ESTProcedure(s): GLADYS\HIEN.CATHETER,TUNNELED, WITH SQ PORT OR PUMP OVER 5YR VIR PROCEDURE NOTE: Procedure: Placement of right IJ single lumen chest port (CT POWER PORT) ACC#: [id number] Indication: Narda Frazier is a 63 y.o. female with left BCa s/p partial mastectomy and axillary node dissection. TECHNIQUE: After discussing risks (including infection, hemorrhage, occlusion), and benefits, patient consented to the procedure and conscious sedation. A moment of truth was performed and the patient and procedure correctly identified. IR nurse performed continuous monitoring of pulse, blood pressure and oxygen saturation during the procedure. After maximal sterile barrier technique preparation of the right neck and upper chest, ultrasound was used to localize the right internal jugular vein. 1% lidocaine SQ was administered for anesthesia, and a 21 ga needle was advanced under ultrasound guidance into the IJ and a 0.018 inch wire was advanced into SVC. A 4 Fr introducer sheath was placed and the wire exchanged for a 0.035 inch wire. Lidocaine was then infiltrated in a caudal-lateral direction, and infiltrated over a 2.5 cm infraclavicular area for pocket creation. A 2 cm incision was made and, with blunt dissection, a pocket created. Port was attached to the catheter, placed into the pocket. A tunneler was then used to bring the catheter through the tunnel to the venotomy site. Venotomy was dilated to accommodate the peel-away sheath, and during breath-hold,the catheter advanced. Sheath was removed. Port flushed and aspirated well. The pocket was closed using a two layer technique with absorbable suture material (2-0 vicryl deep interrupted and 4-0 monocryl running subcuticular). Skin closed with indermil. Patient tolerated the procedure well. There were no immediate complications. Port loaded with heparin per protocol. MEDICATIONS: Valium 10 mg po Ancef 1 gram IV Contrast: none Fluoro time: 0.1 minutes. IMPRESSION: US and fluoro guided placement single lumen right IJ CT POWER port, catheter tip in thecavoatrial junction. Port ready for use. Procedure performed by Brittny Vaughn PA-C Attending: Dr. Cantor documented in this encounter Plan of Treatment Not on file documented as of this encounter Procedures Procedure Name Priority Date/Time Associated Diagnosis Comments IR MEDIPORT PLACEMENT Routine 03/18/2014 11:00 AM EST Malignant neoplasm of left female breast (BREAST CANCER) Other specified prophylactic or treatment measure HEMOGRAM Routine 03/18/2014 10:36 AM EST DIFFERENTIAL, AUTOMATED Routine 03/18/2014 10:36 AM EST CBC (WITH DIFF) Routine 03/18/2014 10:36 AM EST COMPREHENSIVE METABOLIC PANEL Routine 03/18/2014 10:36 AM EST documented in this encounter Results [...] chest port (CT POWER PORT) ? ACC#: ??[id number] Indication: ??Narda Frazier is a 63 y.o. [...] lumen chest port (CT POWER PORT) ACC#: [id number] Indication: Narda Frazier is a 63 y.o. [...] PA-C Attending: Dr. Cantor Kirill Saavedra MD IMG IR ORDERABLES * Differential, Automated (03/18/2014 10:36 AM EST) Neutrophil % 55.6 % CERNER MILLENNIUM Neutrophil Absolute 3.79 1.50 - 6.30 x10(3)/mcL CERNER MILLENNIUM Lymph % 34.6 % CERNER MILLENNIUM Lymphocytes Abs 2.4 1.0 - 3.6 x10(3)/mcL CERNER MILLENNIUM Monocyte % 7.8 % CERNER MILLENNIUM Monocyte Abs 0.5 0.2 - 1.0 x10(3)/mcL CERNER MILLENNIUM Eos % 1.6 % CERNER MILLENNIUM Eosinophils Abs 0.1 0.0 - 0.5 x10(3)/mcL CERNER MILLENNIUM Basophil % 0.1 % CERNER MILLENNIUM Baso Absolute 0.0 0.0 [...] 0.05 x10(3)/mcL CERNER MILLENNIUM Blood specimen (specimen) 03/18/2014 10:36 AM EST 03/18/2014 11:03 AM EST Narrative Resulting Agency Comment Spec In Lab Kirill Saavedra MD HEMATOLOGY ORDERABLE S CERNER MILLENNIUM * Hemogram (03/18/2014 10:36 AM EST) White Blood Cell 6.8 4.0 - 10.0 x10(3)/mcL CERNER MILLENNIUM Red Blood Cell 4.89 3.93 - 5.22 x10(6)/mcL CERNER MILLENNIUM Hemoglobin 14.7 11.2 - 15.7 gm/dL CERNER MILLENNIUM Hematocrit 41.8 34.0 - 45.0 % CERNER MILLENNIUM Mean Cell Volume 85.5 79.0 - 94.0 fL CERNER MILLENNIUM Mean Cell Hemoglobin 30.1 26.6 - 32.2 pg CERNER MILLENNIUM Mean Cell Hemoglobin Concentration 35.2 32.0 - 36.5 gm/dL CERNER MILLENNIUM Platelet 289 145 - 370 x10(3)/mcL CERNER MILLENNIUM RDW Standard Deviation 39.3 35.0 - 46.0 fL CERNER MILLENNIUM RDW coefficient of variation 12.8 10.9 - 14.4 % CERNER MILLENNIUM Mean Platelet Volume 10.3 9.0 - 12.0 fL CERNER MILLENNIUM Blood specimen (specimen) 03/18/2014 10:36 AM EST 03/18/2014 11:03 AM EST Narrative Resulting Agency Comment Spec In Lab Kirill Saavedra MD HEMATOLOGY ORDERABLE S CERNER MILLENNIUM * (ABNORMAL) Comprehensive metabolic panel (non-fasting) (03/18/2014 10:36 AM EST) Glucose 104 60 - 199 mg/dL CERNER MILLENNIUM Comment:Diabetes: >=200 mg/d L plus symptoms Blood Urea Nitrogen 15 8 - 18 mg/dL CERNER MILLENNIUM Creatinine 0.68(L) 0.70 - 1.20 mg/dL CERNER MILLENNIUM Comment: Please note that the pediatric reference intervals supplied above were not validated at [facility] Results from pediatric patients should be interpreted in conjunction to the patient's age, height and muscle mass. Sodium 142 135 - 145 mmol/L CERNER MILLENNIUM Potassium 3.3(L) 3.5 - 5.0 mmol/L CERNER MILLENNIUM Comment: [...] - 31 mmol/L CERNER MILLENNIUM Anion Gap 16(H) 5 - 15 mmol/L CERNER MILLENNIUM Calcium 9.3 8.5 - 10.5 mg/dL CERNER MILLENNIUM Protein, Total 6.4 6.4 - 8.3 gm/dL CERNER MILLENNIUM Albumin 3.7 3.2 - 5.2 gm/dL CERNER MILLENNIUM Aspartate Aminotransferase 18 0 - 30 unit/L CERNER MILLENNIUM Alanine Aminotransferase 25 0 - 30 unit/L CERNER MILLENNIUM Alkaline Phosphatase 76 40 - 104 unit/L CERNER MILLENNIUM Bilirubin, Total <0.2(L) 0.2 - 1.3 mg/dL CERNER MILLENNIUM Bilirubin, [...] the following links into your internet browser. [email or web address] Blood specimen (specimen) 03/18/2014 10:36 AM EST 03/18/2014 11:03 AM EST Narrative Resulting Agency Comment Spec In Lab Kirill Saavedra MD CHEMISTRY ORDERABLES MARI URIBE documented in [...] (1 g), Intravenous, ONCE, 1 dose, On Fri03/18/14 at 0945, Administer over 30 Minutes, Redose after 4 hours., Day of Surgery (Day of Procedure), Indication for (Active or Suspected): Prophylaxis Given 03/18/2014 10:00 AM EST 1,000 mg 100 mL/hr diaZEPam (VALIUM) tablet 10 mg 10 mg, Oral, ONCE, 1 dose, On Fri03/18/14 at 1000, Routine Given 03/18/2014 10:00 AM EST 10 mg documented in this encounter Care Teams Adjuster Relationship Specialty Start Date End Date Ag Trent MD [address] [place] [address] PCP - General 02/02/14 documented as of this encounter
--- OUTSIDE RECORDS SUMMARY | 2024-05-05 01:54 | XMS_ITS | Encounter Summary ---
Author Organization [facility] [place] [address] Care Team Providers Care Driver Guard Name Role Phone Ag Trent MD Primary Care Provider [phone] Reason for Referral * Physical Therapy (Routine) - Closed Specialty Diagnoses / Procedures Referred By Sary kee Referred To Contact Physical Therapy Diagnoses Malignant neoplasm of left female breast Kirill Saavedra MD [facility] HEMATOLOGY [place] [address] [facility] [place] [address] Referral ID Status Reason Start Date Expiration Date V isits Requested Visits Authorized [id number] Closed Evaluate and Treat 04/08/2014 04/08/2015 1 1 Encounter Details Date Type Department Care Team (Late st Contact Info) Description 04/08/2014 Orders Only Hematology Oncology at [address] [phone] Kirill Saavedra MD [facility] HEMATOLOGY [place] [address] Malignant neoplasm of left female [...] site documented in this encounter Care Teams Driver Guard Relationship Specialty Start Date End Date Ag Trent MD [address] [place] [id number] PCP - General 02/02/14 documented as of this encounter
--- OUTSIDE RECORDS SUMMARY | 2024-05-05 01:54 | XMS_ITS | Encounter Summary ---
Author Organization [facility] Address [facility] [place] [address] Care Team Providers Care Lace Machine Operator Name Role Phone Ag Trent MD Primary Care Provider [phone] Encounter Details Date Type Department Care Team (Latest Contact Info) Description 02/22/2014 9:48 AM EST - 02/22/2014 11:59 PM [facility] Hospital En[place] [phone] Ibrahima Cohen MD [facility] [place] [address] Discharge Disposition: Home Social History Tobacco Use [...] on filedocumented in this encounter Care Teams Lace Machine Operator Relationship Specialty Start Date End Date Ag Trent MD [address] [place] [address] PCP - General 02/02/14 documented as of this encounter
--- OUTSIDE RECORDS SUMMARY | 2024-05-05 01:54 | XMS_ITS | Encounter Summary ---
Author Organization [facility] Address [facility] [place] [address] Care Team Providers Care Escrow Closer Name Role Phone Ag Trent MD Primary Care Provider [phone] Reason for Visit * Reason Onset Date Comments Other 03/09/2014 Return phone nancy l to patient Encounter Details Date Type Department Care Team (Late st Contact Info) Description 03/09/2014 Telephone Hematology Oncology at [address] [phone] Ashley Elena, RN Other (Return phone call to patient) Social History Tobacco Use Types Packs/Day Years [...] Telephone Encounter - Ashley Elena, RN - 03/09/2014 12:13 PM EST Return phone call to patient. Spent time answering follow up questions from yesterday. She wants Dr. Saavedra to be aware that she is very fearful of vomiting. Many questions answered regarding whatshe would be getting for nausea, staging of disease, what she is having done for tests, what to expect from her visits here and she would like an rx for a wig. Allowed her to verbalize her fears and offered reassurance. Prescription will be mailed to patient for wig and message forwarded to Dr. Saavedra to be sure he is aware that patient's biggest fear at this point is the thought of vomiting. She states she has had a horrible fear of this her entire life and is deathly afraid of vomiting. documented in this encounter Plan of Treatment Not on file documented as of this encounter Visit Diagnoses Diagnosis Malignant neoplasm of left female breast (BREAST CANCER) Malignant neoplasm of breast (female), unspecified site documented in this encounter Care Teams Escrow Closer Relationship Specialty Start Date End Date Ag Trent MD [address] [place] [address] PCP - General 02/02/14 documented as of this encounter
--- OUTSIDE RECORDS SUMMARY | 2024-05-05 01:54 | XMS_ITS | Encounter Summary ---
Author Organization [facility] Address [facility] [place] [address] Care Team Providers Care Product Manager Financial Services Name Role Phone Ag Trent MD Primary Care Provider [phone] Encounter Details Date Type Department Care Team (Latest Contact Info) Description 02/22/2014 9:50 AM EST - 02/22/2014 11:59 PM [facility] Hospital Encounter [place] [phone] CLINIC, DR [place] Cohen, Ibrahima Coleman MD [facility] [place] [address] Discharge Disposition: Home Social History Tobacco Use [...] EST Narrative 02/22/2014 10:47 AM EST Examination [place] node injection Clinical History Please inject the left breast for lymphatic mapping. Technique Technetium-99m sulfur colloid was administered in divided doses totaling 0.7 mCi in the left breast. Comparison None. Findings No imaging was performed. The patient left the department in good condition. Impression [place] node injection performed. Procedure Note Renan Rivero MD - 02/22/2014 Examination [place] node injection Clinical History Please inject the left breast for lymphatic mapping. Technique Technetium-99m sulfur colloid was administered in divided doses totaling0.7 mCi in the left breast. Comparison None. Findings No imaging was performed. The patient left the department in goodcondition. Impression [place] node injection performed. Ibrahima Cohen MD IMG NM ORDERABLES documented in this encounter Visit Diagnoses Not on filedocumented in this encounter Care Teams Product Manager Financial Services Relationship Specialty Start Date End Date Ag Trent MD [address] [place] [address] PCP - General 02/02/14 documented as of this encounter
--- OUTSIDE RECORDS SUMMARY | 2024-05-05 01:54 | XMS_ITS | Encounter Summary ---
Author Organization [facility] Address [facility] [place] [address] Care Team Providers Care Tractor Distributor Name Role Phone Ag [place] MD Primary Care Provider [phone] Encounter Details Date Type Department Care Team (Late st Contact Info) Description 05/10/2014 10:30 AM EST Follow-Up Hematology Oncology at [address] [address] Kirill Saavedra MD [facility] DR HEMAT[place] [address] Breast cancer, left (Primary Dx); Mucositis Discharge [...] SLN 2/2 positive, ER+/DE+, Her-2 unaplified. Subjective:I felt nauseated, but I did not throw up HPI: Mrs. Narda Rivera is 63 y.o. female Referred to us for consultation by Dr. Cohen on new diagnosis of breast cancer. She initially presenteda mass in her upper outer left breast with calcifications on a screening mammogram in December 2013.The main mass wasbiopsied showing infiltrating ductal andlobular carcinoma, ER positive, [id number]. MRI was then performed that showed the [...] ER/DE/HER2: ER/DE/Her2 Comment: Please see prior biopsy [id number]. HER2 FISH will be repeated on this [...] unspecified documented in this encounter Care Teams Tractor Distributor Relationship Specialty Start Date End Date Ag Trent MD [address] [place] [address] PCP - General 02/02/14 documented as of this encounter
--- OUTSIDE RECORDS SUMMARY | 2024-05-05 01:54 | XMS_ITS | Encounter Summary ---
Author Organization [facility] Address [facility] [place] [address] Care Team Providers Care Manager Managed Backup Services Name Role Phone Ag [place] MD Primary Care Provider [phone] Encounter Details Date Type Department Care Team (Late st Contact Info) Description 03/04/2014 Telephone [place] [phone] Lanie Rai, RN Social History Tobacco Use [...] filedocumented in this encounter Care Teams Manager Managed Backup Services Relationship Specialty Start Date End Date Ag Trent MD [address] [place] [address] PCP - General 02/02/14 documented as of this encounter
--- OUTSIDE RECORDS SUMMARY | 2024-05-05 01:54 | XMS_ITS | Encounter Summary ---
Author Organization [facility] Address [facility] [place] [address] Care Team Providers Care Gardener Name Role Phone Ag [place] MD Primary Care Provider [phone] Reason for Visit * Reason Onset Date Comments Other 03/17/2014 met with patient while in clinic today Encounter Details Date Type Department Care Team (Late st Contact Info) Description 03/17/2014 Telephone Hematology Oncology at [address] [address] Ashley Elena, RN Other (met [...] encounter Miscellaneous Notes * Telephone Encounter - Ahsley Elena, RN - 03/17/2014 3:14 PM EST [...] on filedocumented in this encounter Care Teams Gardener Relationship Specialty Start Date End Date Ag Trent MD [address] [place] [address] PCP - General 02/02/14 documented as of this encounter
--- OUTSIDE RECORDS SUMMARY | 2024-05-05 01:54 | XMS_ITS | Encounter Summary ---
Author Organization [facility] [place] [address] Care Team Providers Care Crossing Guard Name Role Phone Ag [place] MD Primary Care Provider [phone] Reason for Visit * Reason Onset Date Comments Other 04/05/2014 Encounter Details Date Type Department Care Team (Late st Contact Info) Description 04/05/2014 Telephone Hematology Oncology at [address] [address] Ashley Elena, RN Other Social [...] on filedocumented in this encounter Care Teams Crossing Guard Relationship Specialty Start Date End Date Ag Trent MD [address] [place] [address] PCP - General 02/02/14 documented as of this encounter
--- OUTSIDE RECORDS SUMMARY | 2024-05-05 01:54 | XMS_ITS | Encounter Summary ---
Author Organization [facility] [place] [address] Care Team Providers Care Feed In Worker Name Role Phone Ag [place] MD Primary Care Provider Encounter Details Date Type Department Care Team (Late st Contact Info) Description 04/05/2014 Notes Only Hematology [place] [address] Yulissa Mcguire Social History Tobacco Use Types [...] on filedocumented in this encounter Care Teams Feed In Worker Relationship Specialty Start Date End Date Ag Trent MD [address] [place] [address] PCP - General 02/02/14 documented as of this encounter
--- OUTSIDE RECORDS SUMMARY | 2024-05-05 01:54 | XMS_ITS | Encounter Summary ---
Author Organization [facility] Address [facility] [place] [address] Care Team Providers Care Nutrition Worker Name Role Phone Ag [place] MD Primary Care Provider [phone] Reason for Visit * Reason Comments Breast Cancer neulasta Encounter Details Date Type Department Care Team (Late st Contact Info) Description 04/27/2014 11:00 AM EST Office Visit Hematology Oncology at [address] [address] Susan Mccracken MD [facility] [address] [place] [address] Other specified prophylactic or treatment measure; Malignant [...] Arm documented in this encounter Care Teams Nutrition Worker Relationship Specialty Start Date End Date Ag Trent MD [address] [place] [address] PCP - General 02/02/14 documented as of this encounter
--- OUTSIDE RECORDS SUMMARY | 2024-05-05 01:54 | XMS_ITS | Encounter Summary ---
Author Organization [facility] Address [facility] [place] [address] Care Team Providers Care Full Stack Web Developer Name Role Phone Ag [place] MD Primary Care Provider [phone] Reason for Visit * Reason Onset Date Comments Medication Refill 04/12/2014 Appeal for den ial of neulasta injection through [employer] Encounter Details Date Type Department Care Team (Late st Contact Info) Description 04/12/2014 Telephone Hematology Oncology at [address] [address] Ashley Elena, turfgrass technician Refill (Appeal for denial of neulasta injection [...] 04/12/2014 10:38 AM EST Phone call to [employer] re: appeal of their denial of neulasta injection, as she does appear to meet the criteria for the medication. Automated instructions to mail letter of appeal to [employer], [address] [address], [place], [place] [address]. Letter of appeal mail to address given. documented in this encounter Plan of Treatment Not on file documented as of this encounter Visit Diagnoses Not on filedocumented in this encounter Care Teams Full Stack Web Developer Relationship Specialty Start Date End Date Ag Trent MD [address] [place] [address] PCP - General 02/02/14 documented as of this encounter
--- OUTSIDE RECORDS SUMMARY | 2024-05-05 01:54 | XMS_ITS | Encounter Summary ---
Author Organization [facility] Address [facility] [place] [address] Care Team Providers Care Regeneration Operator Name Role Phone Ag [place] MD Primary Care Provider [phone] Reason for Visit * Reason Onset Date Comments Other 03/03/2014 redness Encounter Details Date Type Department Care Team (Late st Contact Info) Description 03/03/2014 Telephone [place] [phone] Lanie Rai, RN Other (redness) Social History [...] on filedocumented in this encounter Care Teams Regeneration Operator Relationship Specialty Start Date End Date Ag Trent MD [address] [place] [address] PCP - General 02/02/14 documented as of this encounter
--- OUTSIDE RECORDS SUMMARY | 2024-05-05 01:54 | XMS_ITS | Encounter Summary ---
Author Organization [facility] Address [facility] [place] [address] Care Team Providers Care Business Reporter Name Role Phone Ag [place] MD Primary Care Provider [phone] Reason for Visit * Reason Comments Chemotherapy AC - CY 2 day 1 Encounter Details Date Type Department Care Team (Late st Contact Info) Description 04/12/2014 10:30 AM EST Office Visit Hematology Oncology at [address] [address] CLINIC, DR ARANGO HEM/ONC Other [...] (IV) Procedure: Accessing Implanted Vascular Access Devices (754) procedure and/or Intravenous (IV) Job Aid: Adult Flushing & Catheter Care (8851) job aid for additional information regarding guidelines [...] Job Aid: Adult Flushing & Catheter Care (6868) job aid for additional information regarding guidelines and administration., Routine Given 04/12/2014 2:20 PM EST 20 mLs sodium chloride 0.9% 500 mL with potassium chloride 20 mEq infusion Intravenous, ONCE, 1 dose, On Fri04/12/14 at 1315, Administer over 1 Hours New Bag 04/12/2014 1:15 PM EST 510 mL/hr documented in this encounter Care Teams Business Reporter Relationship Specialty Start Date End Date Ag Trent MD [address] [place] [address] PCP - General 02/02/14 documented as of this encounter
--- OUTSIDE RECORDS SUMMARY | 2024-05-05 01:54 | XMS_ITS | Encounter Summary ---
Author Organization [facility] Address [facility] [place] [address] Care Team Providers Care Jar Capper Name Role Phone Ag [place] MD Primary Care Provider [phone] Reason for Visit * Reason Comments Injections neulasta Follow-up 1St time chemo yeste rday Encounter Details Date Type Department Care Team (Late st Contact Info) Description 03/30/2014 12:00 PM EST Office Visit Hematology Oncology at [address] [phone] CLINIC, DR ARANGO HEM/ONC Karen Guadalupe, FASHION ADVISER Other specified prophylactic or treatment measure; Malignant [...] mg documented in this encounter Care Teams Jar Capper Relationship Specialty Start Date End Date Ag [place] MD [address] [place] [address] PCP - General 02/02/14 documented as of this encounter
--- OUTSIDE RECORDS SUMMARY | 2024-05-05 01:54 | XMS_ITS | Encounter Summary ---
Author Organization [facility] Address [facility] [place] [address] Care Team Providers Care Wallpaper Consultant Name Role Phone Ag [place] MD Primary Care Provider [phone] Encounter Details Date Type Department Care Team (Late st Contact Info) Description 05/03/2014 Notes Only Hematology [place] [address] Kirill Saavedra MD [facility] DR HEMATOLOGY AND ONCOLOGY [place] [id number] Social History Tobacco Use Types Packs/Day Years [...] 5 phone call 05/03/14 Control arm A [id number]: Effects of an Exercise Intervention on Physical [...] on filedocumented in this encounter Care Teams Wallpaper Consultant Relationship Specialty Start Date End Date Ag [place] MD [address] [place] [address] PCP - General 02/02/14 documented as of this encounter
--- OUTSIDE RECORDS SUMMARY | 2024-05-05 01:54 | XMS_ITS | Encounter Summary ---
Author Organization [facility] Address [facility] [address] Care Team Providers Care Radiation Monitor Name Role Phone Ag [place] MD Primary Care Provider [phone] Encounter Details Date Type Department Care Team (Late st Contact Info) Description 03/10/2014 Notes Only Hematology [place] [address] Kirill Saavedra MD [facility] DR [place] [address] Social History Tobacco Use Types Packs/Day Years [...] AM EST RESEARCH NURSE INFORMED CONSENT NOTE [id number]: Effects of an Exercise Intervention on Physical [...] energy used during rest (done by this abstract writer/ research nurse). She will also receive [...] on filedocumented in this encounter Care Teams Radiation Monitor Relationship Specialty Start Date End Date Ag [place] MD [address] [place] [address] PCP - General 02/02/14 documented as of this encounter
--- OUTSIDE RECORDS SUMMARY | 2024-05-05 01:54 | XMS_ITS | Encounter Summary ---
Author Organization [facility] Address [facility] [place] [address] Care Team Providers Care Shredder Tender Name Role Phone Ag [place] MD Primary Care Provider [phone] Encounter Details Date Type Department Care Team (Latest Contact Info) Description 05/10/2014 Unscheduled Encounter Hematology Oncology at [address] [address] Karen Padilla, TIN [facility] [place] [address] Dietary surveillance and counseling Social History Tobacco [...] Seen by: Trish Padilla, MS, RD, LD, NAILING MACHINE OPERATOR AUTOMATIC Reason for consult: Was asked to meet [...] infiltrating ductal and lobular carcinoma, ER positive, [id number]. MRI was then performed that showed the [...] counseling documented in this encounter Care Teams Shredder Tender Relationship Specialty Start Date End Date Ag [place] MD [address] [place] [address] PCP - General 02/02/14 documented as of this encounter
--- OUTSIDE RECORDS SUMMARY | 2024-05-05 01:54 | XMS_ITS | Encounter Summary ---
Author Organization [facility] Address [facility] [place] [address] Care Team Providers Care Hide Dyer Name Role Phone Ag [place] MD Primary Care Provider [phone] Encounter Details Date Type Department Care Team (Late st Contact Info) Description 03/14/2014 Notes Only Hematology [place] [address] Kirill Saavedra MD [facility] DR HEMATOLOGY [place] [address] Social History Tobacco Use Types Packs/Day Years [...] NURSE INFORMED CONSENT NOTE continued (initiated 03/10/14) [id number]: Effects of an Exercise Intervention on Physical Activity during Chemotherapy for Patients with Early Stage Breast Cancer Date: 03/14/14 Narda called stating that she had decided to participate in the study [id number]. We went over the consent page by [...] co-signed the consent and scanned it into [facility] and gave it to PANDA Chaidez. I [...] on filedocumented in this encounter Care Teams Hide Dyer Relationship Specialty Start Date End Date Ag [place] MD [address] [place] [address] PCP - General 02/02/14 documented as of this encounter
--- OUTSIDE RECORDS SUMMARY | 2024-05-05 01:54 | XMS_ITS | Encounter Summary ---
Author Organization [facility] [place] [address] Care Team Providers Care Head Of Data Name Role Phone Ag [place] MD Primary Care Provider Encounter Details Date Type Department Care Team (Late st Contact Info) Description 03/22/2014 Orders Only Hematology Oncology at [address] [address] Ashley Elena, RN Malignant neoplasm of left [...] site documented in this encounter Care Teams Head Of Data Relationship Specialty Start Date End Date Ag [place] MD [address] [place] [address] PCP - General 02/02/14 documented as of this encounter
--- OUTSIDE RECORDS SUMMARY | 2024-05-05 01:54 | XMS_ITS | Encounter Summary ---
Author Organization [facility] Address [facility] [place] [address] Care Team Providers Care Solutions Sales Consultant Name Role Phone Ag [place] MD Primary Care Provider [phone] Reason for Visit * Reason Comments Simulation Encounter Details Date Type Department Care Team (Latest Contact Info) Description 04/07/2014 1:00 PM EST Ancillary Appointment Radiation Oncology at [address] [address] Clau Alfonso MD [facility] [place] [address] Michael Barton MD Breast cancer, left Discharge Disposition: Home Social [...] nurse or doctor. Section of Radiation Oncology [address] [place] [address] Our normal business hours are: Friday - Friday 8 AM to 5 PM If you have questions about your radiation appointments please ask to speak to the Radiation Oncology secretary receptionist. If you have questions for the nurse [...] in injury A Radiation Oncology doctor is cable television line technician after our normal hours, holidays and weekends. To call for urgent medical issues from radiation treatments that can not wait until normal business hours, pleasecall and have the vacuum form operator page the Radiation Oncologist in call. [...] of Health Publication No. [id number] National Cancer [place] Revised May 2006 #2 [facility];Shared drive/info for RT Patients: a) Information for Patients Receiving Radiation Therapy b) Managing Cancer Treatment Related Fatigue Adapted from Cancersytoms.org Information for understanding cancer on c) Radiation Therapy Billing Information d) Disease site specific Information: Information for Patients Receiving Radiation Therapy To The breast E) INFORMATION FOR PATIENT S RECEIVING RADIATION THERAPY TO THE BREAST AT [place], [place] #3 Miscellaneous: Jefabi cream supplied with the instructions to apply to site of radiation twice a day, but not less than 3 hours before radiation treatment. Contact information: If you have any questions or concerns regarding your cancer, please call: During business hours of 8 AM - 5 PM : [facility] [phone] Weekend/holidays/nights: [facility] [phone] and ask for the cable television line technician radiation oncologist For general medical questions not [...] site documented in this encounter Care Teams Solutions Sales Consultant Relationship Specialty Start Date End Date Ag [place] MD [address] [place] [address] PCP - General 02/02/14 documented as of this encounter
--- OUTSIDE RECORDS SUMMARY | 2024-05-05 01:54 | XMS_ITS | Encounter Summary ---
Author Organization [facility] Address [facility] [place] [address] Care Team Providers Care Strap Machine Operator Name Role Phone Ag [place] MD Primary Care Provider + [phone] Encounter Details Date Type Department Care Team (Late st Contact Info) Description 03/22/2014 10:00 AM EST Ancillary Appointment Hematology [place] [address] Social History Tobacco Use Types Packs/Day Years [...] EST Research Nurse Baseline Visit, Date: 03/22/14 [id number]: Effects of an Exercise Intervention on Physical Activity during Chemotherapy for Patients with Early Stage Breast Cancer Met with Narda in [facility] waiting area. I explained to her that [...] fasting insulin and CRP drawn peripherally in [facility] lab. I informed her that she had randomized to the Control group. This includes a PT consult with standard recommendations. I walked Narda down to the PT department and the standard PT visit and the Body Composition Analysis (DEBBIE) was done by Jillian Kaur. The Resting Metabolic Rate (RMR) was completed by this health underwriter while Narda was resting (still fasting) [...] on filedocumented in this encounter Care Teams Strap Machine Operator Relationship Specialty Start Date End Date Ag Trent MD [address] [place] [address] PCP - General 02/02/14 documented as of this encounter
--- OUTSIDE RECORDS SUMMARY | 2024-05-05 01:54 | XMS_ITS | Encounter Summary ---
Author Organization [facility] Address [facility] [place] [address] Care Team Providers Care Body Coverer Name Role Phone Ag [place] MD Primary Care Provider [phone] Encounter Details Date Type Department Care Team (Late st Contact Info) Description 05/10/2014 Notes Only Hematology [place] [address] Kirill Saavedra MD [facility] DR HEMATOLOGY AND ONCOLOGY [place] [id number] Social History Tobacco Use Types Packs/Day Years [...] Progress Notes * Yulissa Mcguire RN - 05/10/2014 3:41 PM EST Research Nurse; Week 6 phone call 05/10/14 Control arm A [id number]: Effects of an Exercise Intervention on Physical [...] on filedocumented in this encounter Care Teams Body Coverer Relationship Specialty Start Date End Date Ag [place] MD [address] [place] [address] PCP - General 02/02/14 documented as of this encounter
--- OUTSIDE RECORDS SUMMARY | 2024-05-05 01:54 | XMS_ITS | Encounter Summary ---
Author Organization [facility] Address [facility] [place] [address] Care Team Providers Care Regulatory Internship Name Role Phone Ag [place] MD Primary Care Provider Encounter Details Date Type Department Care Team (Late st Contact Info) Description 03/17/2014 Orders Only Hematology [place] [address] Kirill Saavedra MD [facility] DR HEMATOLOGY AND ONCOLOGY [place] [id number] Malignant neoplasm of left female breast Social [...] site documented in this encounter Care Teams Regulatory Internship Relationship Specialty Start Date End Date Ag [place] MD [address] [place] [address] PCP - General 02/02/14 documented as of this encounter
--- OUTSIDE RECORDS SUMMARY | 2024-05-05 01:54 | XMS_ITS | Encounter Summary ---
Author Organization [facility] [place] [address] Care Team Providers Care Contract Post Office Clerk Name Role Phone Ag [place] MD Primary Care Provider [phone] Encounter Details Date Type Department Care Team (Late st Contact Info) Description 02/22/2014 Notes [place] [address] Berkley Soto MSW Social History Tobacco Use [...] Soto MSW - 02/22/2014 2:16 PM EST [facility] met briefly with pt and her friend [...] me with any questions or concerns. - [facility] will continue to provide support and resources to pt. documented in this encounter Plan of Treatment Not on file documented as of this encounter Visit Diagnoses Not on filedocumented in this encounter Care Teams Contract Post Office Clerk Relationship Specialty Start Date End Date Ag [place] MD [address] [place] [address] PCP - General 02/02/14 documented as of this encounter
--- OUTSIDE RECORDS SUMMARY | 2024-05-05 01:54 | XMS_ITS | Encounter Summary ---
Author Organization [facility] Address [facility] [place] [address] Care Team Providers Care Tactical/Mobile Watch Officer Name Role Phone Ag [place] MD Primary Care Provider [phone] Reason for Visit * Reason Comments Follow-up Encounter Details Date Type Department Care Team (Late st Contact Info) Description 03/10/2014 1:00 PM EST Office Visit Hematology [place] [address] Ibrahima Cohen MD [facility] [place] [address] Personal history of malignant neoplasm of breast [...] adjuvant radiation therapy by Dr. Alfonso in [facility] and then will be on anti-hormone [...] breast documented in this encounter Care Teams Tactical/Mobile Watch Officer Relationship Specialty Start Date End Date Ag [place] MD [address] [place] [address] PCP - General 11/5/14 documented as of this encounter
--- OUTSIDE RECORDS SUMMARY | 2024-05-05 01:54 | XMS_ITS | Encounter Summary ---
Author Organization [facility] Address [facility] [place] [place] [address] Care Team Providers Care Inventory Analyst Name Role Phone Ag Trent MD Primary Care Provider [phone] Reason for Visit * Reason Comments Follow-up Encounter Details Date Type Department Care Team (Late st Contact Info) Description 04/12/2014 10:00 AM EST Follow-Up Hematology Oncology at [address] [address] Kirill Saavedra MD [facility] HEMATOLOGY [place] [address] Breast cancer, left Discharge Disposition: Home Social [...] SLN 2/2 positive, ER+/OK+, Her-2 unaplified. Subjective:I felt nauseated, but I did not throw up HPI: Mrs. Narda Rivera is 63 y.o. female Referred to us for consultation by Dr. Cohen on new diagnosis of breast cancer. She initially presenteda mass in her upper outer left breast with calcifications on a screening mammogram in December 2013.The main mass wasbiopsied showing infiltrating ductal andlobular carcinoma, ER positive, [id number]. MRI was then performed that showed the [...] count: Mitotic count: Score = 3 Total [place] Score: Khalif Grade III: 8-9 points DCIS: [...] ER/OK/HER2: ER/OK/Her2 Comment: Please see prior biopsy [id number]. HER2 FISH will be repeated on this [...] site documented in this encounter Care Teams Inventory Analyst Relationship Specialty Start Date End Date Ag Trent MD [address] [place] [address] PCP - General 02/02/14 documented as of this encounter
--- OUTSIDE RECORDS SUMMARY | 2024-05-05 01:54 | XMS_ITS | Encounter Summary ---
Author Organization [facility] Address [facility] [place] [address] Care Team Providers Care Planning Specialist Name Role Phone Ag Trent MD Primary Care Provider [phone] Encounter Details Date Type Department Care Team (Late st Contact Info) Description 03/17/2014 Orders Only Hematology and Oncology at [facility] [place] [address] Yulissa Mcguire Breast cancer, female, unspecified laterality [...] EST) C-Reactive Protein High Sensitivity 10.5 mg/L [facility] Comment: Interpretations: 1) For accurate cardiac [...] In Lab Kirill Saavedra MD CHEMISTRY ORDERABLES [facility] documented in this encounter Visit Diagnoses Diagnosis Breast cancer, female, unspecified laterality- Primary Breast cancer, female, left Patient in cancer related research study documented in this encounter Care Teams Planning Specialist Relationship Specialty Start Date End Date Ag Trent MD [address] [place] [address] PCP - General 02/02/14 documented as of this encounter
--- OUTSIDE RECORDS SUMMARY | 2024-05-05 01:54 | XMS_ITS | Encounter Summary ---
Author Organization [facility] Address [facility] [place] [address] Care Team Providers Care Railroad Wheels And Axles Inspector Name Role Phone Ag Trent MD Primary Care Provider [phone] Encounter Details Date Type Department Care Team (Latest Contact Info) Description 03/02/2014 Multidisciplinary Ca re Committee [place] [phone] Carol Thakkar MD [facility] [place] [address] Social History Tobacco Use Types Packs/Day Years [...] slide reconstruction) MICROCALCIFICATIONS: Present in nonneoplastic tissue ER/PA/HER2: ER/PA/Her2 Comment: Please see prior biopsy [id number]. HER2 FISH will be repeated on this [...] on filedocumented in this encounter Care Teams Railroad Wheels And Axles Inspector Relationship Specialty Start Date End Date Ag Trent MD [address] [place] [address] PCP - General 02/02/14 documented as of this encounter
--- OUTSIDE RECORDS SUMMARY | 2024-05-05 01:54 | XMS_ITS | Encounter Summary ---
Author Organization [facility] Address [facility] [place] [address] Care Team Providers Care Purse Framer Name Role Phone Ag Trent MD Primary Care Provider [phone] Reason for Visit * Reason Comments Injections Neulasta Encounter Details Date Type Department Care Team (Late st Contact Info) Description 04/13/2014 11:00 AM EST Office Visit Hematology Oncology at [address] [address] CLINIC, DR [facility]AN[facility] HEM/ONC Susan Mccracken MD [facility] [place] [address] Other specified prophylactic or treatment measure; Malignant [...] Arm documented in this encounter Care Teams Purse Framer Relationship Specialty Start Date End Date Ag Trent MD [address] [place] [address] PCP - General 02/02/14 documented as of this encounter
--- OUTSIDE RECORDS SUMMARY | 2024-05-05 01:54 | XMS_ITS | Encounter Summary ---
Author Organization [facility] Address [facility] [place] [address] Care Team Providers Care University Relations Director Name Role Phone Ag Trent MD Primary Care Provider [phone] Encounter Details Date Type Department Care Team (Late st Contact Info) Description 03/17/2014 Orders Only [place]ology [place] [phone] Kirill Saavedra MD [facility] DR HEMATOLOGY [place] [address] Breast cancer, unspecified laterality (Primary Dx) Social [...] Urea Nitrogen 15 8 - 18 mg/dL [facility] Creatinine 0.80 0.70 - 1.20 mg/dL [facility] Comment: Please note that the pediatric reference intervals supplied above were not validated at [facility]. Results from pediatric patients [...] the following links into your internet browser. [email or web address] [email or web address] Blood specimen (specimen) 07/01/2014 12:28 PM EDT 07/01/2014 12:43 PM EDT Narrative Resulting Agency Comment Spec In Lab Kirill Saavedra MD CHEMISTRY ORDERABLES [facility] documented in this encounter Visit Diagnoses Diagnosis Breast cancer, unspecified laterality- Primary documented in this encounter Care Teams University Relations Director Relationship Specialty Start Date End Date Ag Trent MD [address] [place] [address] PCP - General 02/02/14 documented as of this encounter
--- OUTSIDE RECORDS SUMMARY | 2024-05-05 01:54 | XMS_ITS | Encounter Summary ---
Author Organization [facility] Address [facility] [place] [address] Care Team Providers Care Lead Solutions Architect Name Role Phone Ag Trent MD Primary Care Provider [phone] Encounter Details Date Type Department Care Team (Late st Contact Info) Description 03/18/2014 Orders Only [place]ology [place] [address] [facility] DR [place] [address] Malignant neoplasm of left female breast Social [...] In Lab Kirill Saavedra MD CHEMISTRY ORDERABLES [facility] documented in this encounter Visit Diagnoses Diagnosis Malignant neoplasm of left female breast Malignant neoplasm of breast (female), unspecified site documented in this encounter Care Teams Lead Solutions Architect Relationship Specialty Start Date End Date Ag Trent MD [address] [place] [address] PCP - General 02/02/14 documented as of this encounter
--- OUTSIDE RECORDS SUMMARY | 2024-05-05 01:54 | XMS_ITS | Encounter Summary ---
Author Organization [facility] [place] [address] Care Team Providers Care Tire Retreader Name Role Phone Ag Trent MD Primary Care Provider Encounter Details Date Type Department Care Team (Late st Contact Info) Description 05/10/2014 Orders Only Hematology Oncology at [address] [address] Ashley Elena, RN Mucositis Social History Tobacco [...] unspecified documented in this encounter Care Teams Tire Retreader Relationship Specialty Start Date End Date Ag Trent MD [address] [place] [address] PCP - General 02/02/14 documented as of this encounter
--- OUTSIDE RECORDS SUMMARY | 2024-05-05 01:54 | XMS_ITS | Encounter Summary ---
Author Organization [facility] Address [facility] [place] [address] Care Team Providers Care Car Seat Maker Name Role Phone Ag Trent MD Primary Care Provider [phone] Reason for Visit * Reason Comments Chemotherapy AC - 4 Encounter Details Date Type Department Care Team (Late st Contact Info) Description 05/10/2014 11:30 AM EST Office Visit Hematology Oncology at [address] [address] CLINIC, DR ARANGO HEM/ONC Other [...] Eli RN and Onsite Pharmacist. Emend infused 8089-8337 Cytoxan infused 8802-6008 REACTIONS (DESCRIPTION, TIME, INTERVENTION AND EFFECTIVENESS) none [...] mg documented in this encounter Care Teams Car Seat Maker Relationship Specialty Start Date End Date Twan, Ag H, MD [address] [place] [address] PCP - General 02/02/14 documented as of this encounter
--- OUTSIDE RECORDS SUMMARY | 2024-05-05 01:54 | XMS_ITS | Encounter Summary ---
Author Organization [facility] Address [facility] [place] [address] Care Team Providers Care Hoop Driving Machine Operator Helper Name Role Phone Ag Trent MD Primary Care Provider [phone] Reason for Visit * Reason Comments Chemotherapy CY 3 day 1 Encounter Details Date Type Department Care Team (Late st Contact Info) Description 04/25/2014 12:00 PM EST Office Visit Hematology Oncology at [address] [address] CLINIC, DR ARANGO HEM/ONC Other [...] IV @ 1251 Emend 150mg IV @ 8532-7113 Doxorubicin 118.2mg IVP over 5min each syringe @ 1409 Cyclophosphamide 1,182mg IV @ 4135-9236 REACTIONS (DESCRIPTION, TIME, INTERVENTION AND EFFECTIVENESS) none [...] mg documented in this encounter Care Teams Hoop Driving Machine Operator Helper Relationship Specialty Start Date End Date Ag Trent MD [address] [place] [address] PCP - General 02/02/14 documented as of this encounter
--- OUTSIDE RECORDS SUMMARY | 2024-05-05 01:54 | XMS_ITS | Encounter Summary ---
Author Organization [facility] Address [facility] [place] [address] Care Team Providers Care Wrapper Stitcher Name Role Phone Ag Trent MD Primary Care Provider [phone] Encounter Details Date Type Department Care Team (Late st Contact Info) Description 04/12/2014 Notes Only Hematology Oncology at [address] [address] Taylor Sousa MSW OFFICE OF CARE MANAGEMENT Social History Tobacco [...] Progress Notes * Taylor Sousa MSW - 04/13/2014 12:19 PM EST Follow up with pt. Informed she was interested in information about support group options. Gave pt information about support services through [facility]. Gave her information about the [facility] Reach to Recovery program. Also gave her contact information the support services offered through [facility]. Pt with questions about [facility] services because she is concerned about potential transportation issues. Gave her the contact number to RCT and discussed there would be a cost because she does not have Medicaid. Pt does have a vehicle. She has offers for rides from members of her restorationist community. Gaveher the contact information the the [facility] Recovery program as another resource. Will continue to follow. documented in this encounter Plan of Treatment Not on file documented as of this encounter Visit Diagnoses Not on filedocumented in this encounter Care Teams Wrapper Stitcher Relationship Specialty Start Date End Date Ag Trent MD [address] [place] [address] PCP - General 02/02/14 documented as of this encounter
--- OUTSIDE RECORDS SUMMARY | 2024-05-05 01:54 | XMS_ITS | Encounter Summary ---
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 Subjective:I felt nauseated, but I [...] infiltrating ductal and lobular carcinoma, ER positive, [id number]. MRI was then performed that showed the [...] count: Mitotic count: Score = 3 Total [place] Score: Khalif Grade III: 8-9 points DCIS: [...] slide reconstruction) MICROCALCIFICATIONS: Present in nonneoplastic tissue ER/WV/HER2: ER/WV/Her2 Comment: Please see prior biopsy [id number]. HER2 FISH will be repeated on this [...] cancer cells with immunostaining) Stain Intensity: Strong WV immunoreactivity: Positive (11-90% cancer cells with immunostaining) [...] features, lymphovascular invasion present, SLN 2/2 positive, ER+/WV+, Her-2 unaplified, T2,at least N1a, Mx Treatment:s/p [...] of dose dense AC Meenakshi Sanchez, MSN, WORKFORCE DEVELOPMENT PROGRAM DIRECTOR, AOCN Hematology/Oncology Nurse Practitioner [place], [place] [phone] documented in this encounter Plan of Treatment [...] measure documented in this encounter Care Teams Charge Lpn Relationship Specialty Start Date End Date Ag Trent MD [address] [place] [address] PCP - General 02/02/14 documented as of this encounter
--- OUTSIDE RECORDS SUMMARY | 2024-05-05 01:54 | XMS_ITS | Encounter Summary ---
Author Organization [facility] Address [facility] [place] [address] Care Team Providers Care Basket Hand Weaver Name Role Phone Ag Trent MD Primary Care Provider [phone] Encounter Details Date Type Department Care Team (Late st Contact Info) Description 04/05/2014 Notes Only Hematology [place] [address] Kirill Saavedra MD [facility] DR [place] [address] Social History Tobacco Use Types Packs/Day Years Used Date Smoking Tobacco: Never Alcohol Use Standard Drinks/Week Comments No 0 (1 standard drink = 0.6 oz pur e alcohol) Sex and Gender Information Value Date Recorded Sex Assigned at Not on file Gender Identity Not on file Sexual Orientation Not on file documented as of this encounter Progress Notes * Yulissa Mcguire RN - 04/05/2014 3:35 PM EST Research Nurse; Week 1 phone call 04/05/14 Control arm A [id number]: Effects of an Exercise Intervention on Physical Activity during Chemotherapy for Patients with Early Stage Breast Cancer Narda reported average steps of 1230/day. She uses a stationary bike for exercise and and she biked10 minutes on 5 of 7 days with exertion rate ranging from 9-13 (scale 6-20) which meets her initialphysical activity which is the goal for participants on the control arm. On days 3 and 4 she felt too weak and sick to exercise. Narda stated that wearing the pedometer had become routine and she hadno problems recording her activities on the log. She also commented that had she not been on the study she would most likely not get on her bike to exercise at all. I complimented her on her positiveattitude and hard work despite feeling nauseated most of the week. Yulissa Mcguire RN documented in this encounter Plan of Treatment Not on file documented as of this encounter Visit Diagnoses Not on filedocumented in this encounter Care Teams Basket Hand Weaver Relationship Specialty Start Date End Date Ag Trent MD [address] [place] [address] PCP - General 02/02/14 documented as of this encounter
--- OUTSIDE RECORDS SUMMARY | 2024-05-05 01:54 | XMS_ITS | Encounter Summary ---
Author Organization [facility] [place] [address] Care Team Providers Care Circus Supervisor Name Role Phone Ag Trent MD Primary Care Provider [phone] Encounter Details Date Type Department Care Team (Late st Contact Info) Description 03/14/2014 Orders Only Hematology Oncology at [address] [phone] Manuela Pena, RN Malignant neoplasm of left [...] site documented in this encounter Care Teams Circus Supervisor Relationship Specialty Start Date End Date Ag Trent MD [address] [place] [address] PCP - General 02/02/14 documented as of this encounter
--- OUTSIDE RECORDS SUMMARY | 2024-05-05 01:54 | XMS_ITS | Encounter Summary ---
Author Organization [facility] Address [facility] [place] [address] Care Team Providers Care Florist Manager Name Role Phone Ag Trent MD Primary Care Provider [phone] Encounter Details Date Type Department Care Team (Late st Contact Info) Description 04/12/2014 Notes Only Hematology [place] [address] Kirill Saavedra MD [facility] DR HEMATOLOGY AND ONCOLOGY [place] [id number] Social History Tobacco Use Types Packs/Day Years [...] 2 phone call 04/12/14 Control arm A [id number]: Effects of an Exercise Intervention on Physical [...] on filedocumented in this encounter Care Teams Florist Manager Relationship Specialty Start Date End Date Ag Trent MD [address] [place] [address] PCP - General 02/02/14 documented as of this encounter
--- OUTSIDE RECORDS SUMMARY | 2024-05-05 01:54 | XMS_ITS | Encounter Summary ---
Author Organization [facility] Address [facility] [place] [address] Care Team Providers Care Wool Merchant Name Role Phone Ag Trent MD Primary Care Provider [phone] Encounter Details Date Type Department Care Team (Late st Contact Info) Description 03/29/2014 Notes Only Hematology Oncology at [address] [address] Taylor Sousa, INSPECTOR ELECTROMECHANICAL OFFICE OF CARE MANAGEMENT Social History Tobacco [...] did identify a cousin who lives in [facility]. Living Situation/Daily Activities/Transportation: Pt live alone and manages her daily chores and activities. She does drive and indciated transportation to appointments should not be an issue. Work/Finances/Insurance: Pt is retired. She indicated she is able to manage her financial obligations. She has Medicare and a secondary insurance. Pt with questions re her insurance plan and other options. She has utilized the [employer] services at [facility] and referred her back to there to speak with her contact. Advance Directives: pt has completed her advance directive. Per her requested obtained a copy from [facility]. Pt reviewed the document and indicated she wants to make changes. Gave her a new [place] advance directive booklet/form to review and complete. We did not complete an ACP as she is unsure who she wants as her health care deicsion maker. Will follow up with her about this. Utilization of Community Resources: AAA services. Pt receives her primary care at the [facility]. Pt agreeable to participate in the [place] Oncology Project. Discussed project and provided her with the brochure. SEAN Galeano RN, [facility] and informed her pt willing to participate. Adjustment to Illness/Mental Health Issues: Pt indicated she has been anxious about starting her treatments. She has asking a number of the same questions to different staff. Will need to clearly identify who is addressing which issue. Informed her of [facility] which might be an additional source of support for pt. Pt indicated she was aware of this. Identified Needs: With insurance related questions and referred to [facility] staff who she has utilized in the past. Referrals: [facility] Assessment: Support from a few friends. Need to better clarify this. With multiple and repeating questions and referring to best source to answer. Plan: Informed pt and friend of my availability. Will follow for support and resources. documented in this encounter Plan of Treatment Not on file documented as of this encounter Visit Diagnoses Not on filedocumented in this encounter Care Teams Wool Merchant Relationship Specialty Start Date End Date Ag Trent MD [address] [place] [address] PCP - General 02/02/14 documented as of this encounter
--- OUTSIDE RECORDS SUMMARY | 2024-05-05 01:54 | XMS_ITS | Encounter Summary ---
Author Organization [facility] Address [facility] [place] [address] Care Team Providers Care Security Attendant Name Role Phone Ag Trent MD Primary Care Provider [phone] Encounter Details Date Type Department Care Team (Latest Contact Info) Description 03/22/2014 10:09 AM EST - 03/22/2014 11:59 PM [facility] Hospital Encounter [place]ology [place] [phone] Kirill Saavedra MD [facility] DR HEMATOLOGY [place] [address] Discharge Disposition: Home Social History Tobacco Use [...] on filedocumented in this encounter Care Teams Security Attendant Relationship Specialty Start Date End Date Ag Trent MD [address] [place] [address] PCP - General 02/02/14 documented as of this encounter
--- OUTSIDE RECORDS SUMMARY | 2024-05-05 01:54 | XMS_ITS | Encounter Summary ---
Author Organization [facility] Address [facility] [place] [address] Care Team Providers Care Toxicology Teacher Name Role Phone Ag Trent MD Primary Care Provider [phone] Reason for Visit * Reason Comments Breast Cancer Encounter Details Date Type Department Care Team (Late st Contact Info) Description 03/08/2014 8:30 AM EST Office Visit Hematology Oncology at [address] [phone] Kirill Saavedra MD [facility] [address] HEMATOLOGY [place] [address] Malignant neoplasm of left female breast (BREAST [...] invasion present, SLN 2/2 positive, ER+/RI+, Her-2 unaplified. Subjective:I am very nervous about chemotherapy HPI: Mrs. Narda Frazier is 63 y.o. female Referred to us for consultation by Dr. Cohen on new diagnosis of breast cancer. She initially presenteda mass in her upper outer left breast with calcifications on a screening mammogram in December 2013.The main mass wasbiopsied showing infiltrating ductal andlobular carcinoma, ER positive, [id number]. 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 States [...] slide reconstruction) MICROCALCIFICATIONS: Present in nonneoplastic tissue ER/RI/HER2: ER/RI/Her2 Comment: Please see prior biopsy [id number]. HER2 FISH will be repeated on this [...] cancer cells with immunostaining) Stain Intensity: Strong RI immunoreactivity: Positive (11-90% cancer cells with immunostaining) [...] first cycle of dose dense AC Mrs. Frazire is accompanied by everett today. The plan was discussed with the patient in details. All questions were answered to patient's satisfaction. I would like to thank Dr. Cohen and Dr. Trent for allowing me to participate in the care of this wonderful lady * Ashley Elena RN - 03/08/2014 2:57 PM EST Patient states that she gets her prescriptions through [facility]. She provided us with contact information ([phone]) and ID #'s - RxBin: [id number], RxPCN: [id number], RxGRP: [id number], .Phone call to [employer] and spoke to event marketing representative whom states that patient receives her medication through [facility] ([phone]) and [employer] is her pharmacy benefit. She [...] met). Then 35-39% copay) Phone call to [facility] ([phone]) and prescriptions called into pharmacy. They 3 [...] IF NO: Advance Directive pamphlet provided : [facility] has copy of advance directives. Will obtain copy from [facility] Referral to Care Management : PRESENTING SYSTEMS [...] information entered. Support Systems: Lives in [facility] with boyfriensonya rust transportation plan: [ ]private [...] chest port (CT POWER PORT) ? ACC#: ??[id number] Indication: ??Narda Frazier is a 63 y.o. [...] lumen chest port (CT POWER PORT) ACC#: [id number] Indication: Narda Frazier is a 63 y.o. [...] measure documented in this encounter Care Teams Toxicology Teacher Relationship Specialty Start Date End Date Ag Trent MD [address] [place] [address] PCP - General 02/02/14 documented as of this encounter
--- OUTSIDE RECORDS SUMMARY | 2024-05-05 01:54 | XMS_ITS | Encounter Summary ---
Author Organization [facility] Address [facility] [place] [address] Care Team Providers Care Kaiawhina Kohanga Reo Name Role Phone Ag Trent MD Primary Care Provider [phone] Encounter Details Date Type Department Care Team (Latest Contact Info) Description 03/22/2014 10:04 AM EST - 03/22/2014 11:59 PM [facility] Hospital Encounter [place] [phone] CLINIC, Kirill St MD [facility] [place] [address] Breast cancer, female, left; Patient in cancer [...] Insulin, total (03/22/2014 10:12 AM EST) Pathologist [facility] Insulin Not Perf 2.6 - 24.9 [facility] Comment:Unable to quantitate due to sample hemolysis. Sample redraw suggested. Blood specimen (specimen) 03/22/2014 10:12 AM EST 03/22/2014 10:14 AM EST Narrative Resulting Agency Comment Spec In Lab Kirill Saavedra MD CHEMISTRY ORDERABLES [facility] * High Sensitivity CRP (03/22/2014 10:12 AM EST) Pathologist [facility] C-Reactive Protein High Sensitivity 10.5 mg/L [facility] Comment: Interpretations: 1) For accurate cardiac [...] Saavedra MD CHEMISTRY ORDERABLES Performing Organization Address City/State/[facility] Co dc Phone Number [facility] documented in this encounter Visit Diagnoses Diagnosis Breast cancer, female, left Patient in cancer related research study Malignant neoplasm of left female breast Malignant neoplasm of breast (female), unspecified site documented in this encounter Care Teams Kaiawhina Kohanga Reo Relationship Specialty Start Date End Date Ag Trent MD [address] [place] [address] PCP - General 02/02/14 documented as of this encounter
--- OUTSIDE RECORDS SUMMARY | 2024-05-05 01:54 | XMS_ITS | Encounter Summary ---
Author Organization [facility] Address [facility] [place] [address] Care Team Providers Care Tax Commissioner Name Role Phone Ag Trent MD Primary Care Provider [phone] Encounter Details Date Type Department Care Team (Latest Contact Info) Description 02/22/2014 9:50 AM EST - 02/22/2014 10:28 AM [facility] [place] [phone] Malignant neoplasm of breast (female), unspecified site [...] site documented in this encounter Care Teams Tax Commissioner Relationship Specialty Start Date End Date Ag Trent MD [address] [place] [address] PCP - General 02/02/14 documented as of this encounter
--- OUTSIDE RECORDS SUMMARY | 2024-05-05 01:54 | XMS_ITS | Encounter Summary ---
Author Organization [facility] Address [facility] [place] [address] Care Team Providers Care Loan Associate Name Role Phone Ag Trent MD Primary Care Provider [phone] Reason for Visit * Reason Comments Follow-up Encounter Details Date Type Department Care Team (Late st Contact Info) Description 03/29/2014 10:30 AM EST Follow-Up Hematology Oncology at [address] [address] Kirill Saavedra MD [facility] [address] [place] [address] Malignant neoplasm of left female breast Discharge [...] SLN 2/2 positive, ER+/NM+, Her-2 unaplified. Subjective:I am very nervous about chemotherapy HPI: Mrs. Narda Frazier is 63 y.o. female Referred to us for consultation by Dr. Cohen on new diagnosis of breast cancer. She initially presenteda mass in her upper outer left breast with calcifications on a screening mammogram in December 2013.The main mass wasbiopsied showing infiltrating ductal andlobular carcinoma, ER positive, [id number]. MRI was then performed that showed the [...] ER/NM/HER2: ER/NM/Her2 Comment: Please see prior biopsy [id number]. HER2 FISH will be repeated on this [...] site documented in this encounter Care Teams Loan Associate Relationship Specialty Start Date End Date Ag Trent MD [address] [place] [address] PCP - General 02/02/14 documented as of this encounter
--- OUTSIDE RECORDS SUMMARY | 2024-05-05 01:54 | XMS_ITS | Encounter Summary ---
Author Organization [facility] Address [facility] [place] [address] Care Team Providers Care Net Mvc Developer Name Role Phone Ag Trent MD Primary Care Provider [phone] Encounter Details Date Type Department Care Team (Late st Contact Info) Description 04/07/2014 Orders Only Radiation Oncology at [address] [phone] Clau Alfonso MD [facility] [place] [address] Social History Tobacco Use Types Packs/Day Years [...] LIBRARY STORAGE ONLY RADIATION ONCOLOGY STUDIES Routine 04/07/2014 5:17 PM EST documented in this encounter Results * Film Library- Storage Only Radiation Oncology Studies (04/07/2014 5:17 PM EST) Anatomical Region Laterality Modality Other 04/07/2014 5:17 PM EST Narrative 04/07/2014 5:18 PM EST This is a Non-reportable exam Procedure Note SURAJ, UNSIGNED REPORT - 04/07/2014 This is a Non-reportable exam Clau Alfonso MD G FILM LIBRARY ORD ERABLES documented in this encounter Visit Diagnoses Not on filedocumented in this encounter Care Teams Net Mvc Developer Relationship Specialty Start Date End Date Ag Trent MD [address] [place] [address] PCP - General 02/02/14 documented as of this encounter
--- OUTSIDE RECORDS SUMMARY | 2024-05-05 01:55 | XMS_ITS | Encounter Summary ---
Author Organization [facility] Address [facility] [place] [address] Care Team Providers Care Tire Builder Operator Name Role Phone Ag Trent MD Primary Care Provider [phone] Encounter Details Date Type Department Care Team (Late st Contact Info) Description 02/22/2014 2:00 PM EST - 02/22/2014 4:58 PM EST [place] [phone] Ibrahima Cohen MD [facility] [place] [address] MASTECTOMY PARTIAL (WRVU 10.13) Social History Tobacco [...] 101.3 F. The number for questions is [phone] before 5 PM week. Pain Medication: No [...] PM Ibrahima Cohen MD [facility] Hem On[facility] 03/14/2014 8:00 AM Michael Barton MD [place] Hem/Onc [facility] 03/14/2014 9:[address] [place] [facility] Rad/Onc [facility] 03/14/2014 10:00 AM Clau Alfonso MD [facility] Rad/Onc [facility] Please call [phone] (clinic number) if any changes need to [...] Cohen MD - 02/22/2014 5:54 PM EST [facility] Operative Note Patient Name: Narda Rivera : [id number] MR#: [id number] Case Date: 02/22/2014 Surgeon: Surgeon(s) and Role: [...] her breast digitally into the computer. The [employer] Team then transformed the supine MRI [...] (02/22/2014 4:57 PM EST) Molecular Report ? [facility] ? Provider: ?? IBRAHIMA COHEN ?Pt. Name: ?? NARDA RIVERA ? Acc #: ?[id number] ?Pt. ? Col Date: ?? 02/22/2014 ?/Sex: [...] ??Direct analysis was ? performed using the Scrapblog Kit. ??Slide adequacy and signal enumeration ? [...] factor receptor 2 testing in breast cancer: [place] Society of Clinical ? Oncology/College of [place] Pathologists clinical practice guideline ? update. J Clin Oncol. ? 2012Jan 29. ? Reviewed by: ? Radha Walton MD ? Bilingual Customer Service, Molecular Pathology ? [facility] ? Provider: ?? IBRAHIMA COHEN ?Pt. Name: ?? NARDA RIVERA ? Acc #: ?[id number] ?Pt. ? Col Date: ?? 02/22/2014 ?/Sex: ?1950,(63 years),Female ? Rec Date: ?? 02/22/2014 ?LOC: ?SDP ? MOLECULAR GENETIC STUDIES ? _ ? Verified date: ??03/09/14 ??SFA ? Verified by: ?Anton LANGSTON, Radha Coleman ? (Electronic Signature) MARI URIBE 02/22/2014 4:57 PM EST Ibrahima Cohen MD PATHOLOGY/CYTOLOGY O ALETHEA MARI URIBE * Surgical Pathology Report (02/22/2014 4:57 PM EST) Final Diagnosis 00- [id number] ? Location: SDP The signing pathologist has [...] FISH. ??Direct analysis was performed using the Scrapblog Kit. ??Slide adequacy and signal enumeration were [...] factor receptor 2 testing in breast cancer: [place] Society of Clinical Oncology/College of [place] Pathologists clinical practice guideline update. J Clin Oncol. 2013 Jan 29. Reviewed by: Radha Walton MD Bilingual Customer Service, Molecular Pathology _ Verified date: ??03/09/14 ??SFA [...] perpendicular section of tissue slice I; (2) representative personal service section of tissue slice II with black margin; (3) tissue slice IV including lesion and nearest caudal margin; (04) section of lesion and nearest deep margin tissue slice IV; (5) cranial margin tissue slice IV; (6) lesion and superficial margin, tissue slice IV; (7) section of lesion in tissue slice V; (8) representative personal service section of tissue slice VII; (9) particular [...] Sectioning reveals no definitive lymph nodes. Sections/Processing: Auxiliary Powerplant Operator sections of the more fibrous tissue [...] Score = 3 ? Total Khalif Score: ?Maribel Grade III: ??8-9 points DCIS: ? Ductal [...] . Diagnosis ? Present in nonneoplastic tissue ER/FL/HER2: ? ER/FL/Her2 Comment: ??Please see prior biopsy [id number]. HER2 FISH will be ?repeated on this [...] 3.5 cm mass. 03/09/2014 2:[address] [facility] SENTINEL LYMPH NODE / Unknown 02/22/2014 4:57 PM EST 02/22/2014 4:57 PM EST SENTINEL LYMPH NODE / Unknown 02/22/2014 4:57 PM EST 02/22/2014 4:57 PM EST SENTINEL LYMPH NODE / Unknown 02/22/2014 4:57 PM EST 02/22/2014 4:57 PM EST Ibrahima Cohen MD PATHOLOGY/CYTOLOGY O ALETHEA Performing Organization Address City/[facility] Co de Phone Number MARI CLAROSMISAEL [facility] [place] [place] [address] * Specimen to Pathology (surgical or derm) (02/22/2014 4:57 PM EST) AP Specimen 02/22/2014 4:57 PM EST 02/22/2014 4:57 PM EST Narrative MARI HARLANJONNYJULITO - 02/22/2014 4:57 PM EST Specimen requisition ordered. ??Separate Pathology report to follow Ibrahima Cohen MD PATHOLOGY/CYTOLOGY O ALETHEA Performing Organization Address [facility] Co de Phone Number MARI URIBE * [...] and non-parallel orientation. The mass was located fx1179, 9cm from the nipple and differences in [...] RN) documented in this encounter Care Teams Tire Builder Operator Relationship Specialty Start Date End Date Ag Trent MD [address] [place] [address] PCP - General 02/02/14 documented as of this encounter
--- OUTSIDE RECORDS SUMMARY | 2024-05-05 01:55 | XMS_ITS | Encounter Summary ---
Author Organization [facility] Address [facility] [place] [address] Care Team Providers Care Electrical Design Technician Name Role Phone Ag Trent MD Primary Care Provider [phone] Encounter Details Date Type Department Care Team (Late st Contact Info) Description 02/22/2014 2:00 PM EST Anesthesia [place] [phone] Marcia John MD [facility] [place] [address] Edgar Sevilla CRNA Anesthesia Record Procedure Summary Procedure Name Responsible [...] IV Line - Single Lumen 02/22/14; 1048; zyph-bhi-lqcrio catheter system; 20 gauge; metacarpal vein (top [...] at Teeth: 22 cm; Inserted by: Edgar Sevilla CRNA; Removal Date: 02/22/14; Removal Time: 180502/22/14 141 by Edgar Sevilla CRNA 02/22/14 180 by Cuauhtemoc Villarreal DO documented [...] Assessment: - normal exam (+) upper dentures [employer] [facility] [employer] Assessment: Patient is wearing No contact(s). IV [...] with patient and spouse. Plan discussed with PILLOW AGENT. [employer] [facility] [employer]. Assessment: documented in this encounter Plan of [...] Fri02/22/14 at 1816, Anesthesia Intra-op, Routine New Bag 02/22/2014 3:25 PM EST 20 mcg/min 15 mL/hr PHENYLephrine HCl in NS (PF) (MART-SYNEPHRINE) 0.8 mg/10 mL (80 mcg/mL) injection Syrg PRN, Starting on Fri02/22/14 at 1420, Until Fri02/22/14 at 1816, Anesthesia Intra-op, Routine [...] mg documented in this encounter Care Teams Electrical Design Technician Relationship Specialty Start Date End Date Ag Trent MD [address] [place] [address] PCP - General 02/02/14 documented as of this encounter
--- OUTSIDE RECORDS SUMMARY | 2024-05-05 01:55 | XMS_ITS | Encounter Summary ---
Author Organization [facility] Address [facility] [place] [address] Care Team Providers Care Landscaper Name Role Phone Ag Trent MD Primary Care Provider [phone] Encounter Details Date Type Department Care Team (Latest Contact Info) Description 02/08/2014 8:33 AM EST - 02/08/2014 11:59 PM EST Hospital En[place] [phone] CLINIC, DR DAVIS Cohen, Ibrahima Coleman MD [facility] [place] [address] Invasive ductal carcinoma of breast, left Discharge [...] contrast enhancement curve analysis was performed, using Hippflowa software. ?? Background enhancement pattern (first post [...] mLs documented in this encounter Care Teams Landscaper Relationship Specialty Start Date End Date Ag Trent MD [address] [place] [address] PCP - General 02/02/14 documented as of this encounter
--- OUTSIDE RECORDS SUMMARY | 2024-05-05 01:55 | XMS_ITS | Encounter Summary ---
[place] [address] Care Team Providers Care Manager Pacu Name Role Phone Ag Trent MD Primary Care Provider [phone] Encounter Details Date Type Department Care Team (Latest Contact Info) Description 02/02/2014 9:00 AM EST - 02/02/2014 11:59 PM EST Hospital [place] [phone] CLINIC, Ag Silver MD [address] [place], [place] [id number] Abnormal mammogram, unspecified Discharge Disposition: Home Social [...] and approve the above interpretation. Home phone: [phone] Film and interpretation reviewed by the attending [...] specimens obtained. ?? A 17-gauge Ultracore (US) Kipton marker clip was placed. Cranio-caudal and lateral [...] biopsy specimens obtained. A 17-gauge Ultracore (US) Kipton marker clip was placed. Cranio-caudal and lateral [...] images/test andapprove the above interpretation. Home phone: [phone] Film and interpretation reviewed by the attending Ag Trent MD IMG MAMMO ORDERABLES * Specimen to Pathology (surgical or derm) (02/02/2014 9:58 AM EST) AP Specimen 02/02/2014 9:58 AM EST 02/02/2014 9:58 AM EST Narrative MARI URIBE - 02/02/2014 9:58 AM EST Specimen requisition ordered. ??Separate Pathology report to follow Edith Mcghee MD PATHOLOGY/CYTOLOGY O RDERABLES [facility] documented in this encounter Visit Diagnoses [...] documented in this encounter Care Teams Manager Pacu Relationship Specialty Start Date End Date Ag Trent MD [address] [place] [address] PCP - General 02/02/14 documented as of this encounter
--- OUTSIDE RECORDS SUMMARY | 2024-05-05 01:55 | XMS_ITS | Encounter Summary ---
Author Organization [facility] Address [facility] [place] [address] Care Team Providers Care Valve Inspector Name Role Phone Latoya Quintanilla MD Primary Care Provider [phone] Encounter Details Date Type Department Care Team (Late st Contact Info) Description 01/25/2014 Orders [place] [phone] Nancy Hummel MD [facility] DR DIAGNOSTIC [place] [address] Abnormal mammogram, unspecified (Primary Dx) Social History [...] and approve the above interpretation. Home phone: [phone] Film and interpretation reviewed by the attending [...] specimens obtained. ?? A 17-gauge Ultracore (US) [place] marker clip was placed. Cranio-caudal and lateral [...] biopsy specimens obtained. A 17-gauge Ultracore (US) Brain[place] marker clip was placed. Cranio-caudal and lateral [...] images/test andapprove the above interpretation. Home phone: [phone] Film and interpretation reviewed by the attending Nancy Cam MD IMG MAMM O ORDERABLES documented in this encounter Visit Diagnoses Diagnosis Abnormal mammogram, unspecified- Primary Abnormal mammogram, unspecified documented in this encounter Care Teams Valve Inspector Relationship Specialty Start Date End Date Latoya Quintanilla MD [address] [place] [address] PCP - General 02/20/10 02/01/14 documented as of this encounter
--- OUTSIDE RECORDS SUMMARY | 2024-05-05 01:55 | XMS_ITS | Encounter Summary ---
Author Organization [facility] Address [facility] [place] [address] Care Team Providers Care Social Services Coordinator Name Role Phone Ag Trent MD Primary Care Provider [phone] Encounter Details Date Type Department Care Team (Latest Contact Info) Description 02/22/2014 10:29 AM EST - 02/22/2014 8:06 PM EST Hospital En[place] [id number] Ibrahima Cohen MD [facility] [place] [address] Discharge Disposition: Home Social History Tobacco Use [...] 101.3 F. The number for questions is [phone] before 5 PM week. Pain Medication: No [...] PM Ibrahima Cohen MD [place] [facility] 03/14/2014 8:00 AM Michael Barton MD [place] Hem/Onc [facility] 03/14/2014 9:[address] [place] [facility] Rad/Onc [facility] 03/14/2014 10:00 AM Clau Alfonso MD [facility] Rad/Onc [facility] Please call [phone] (clinic number) if any changes need to [...] Cohen MD - 02/22/2014 5:54 PM EST [facility] Operative Note Patient Name: Narda Rivera : [id number] MR#: [id number] Case Date: 02/22/2014 Surgeon: Surgeon(s) and Role: [...] her breast digitally into the computer. The [employer] Team then transformed the supine MRI image [...] (02/22/2014 4:57 PM EST) Molecular Report ? [facility] ? Provider: ?? IBRAHIMA COHEN ?Pt. Name: ?? NARDA RIVERA ? Acc #: ?[id number] ?Pt. ? Col Date: ?? 02/22/2014 ?/Sex: [...] ??Direct analysis was ? performed using the Movinto Fun Kit. ??Slide adequacy and signal enumeration ? [...] factor receptor 2 testing in breast cancer: Indian Society of Clinical ? Oncology/College of Indian Pathologists clinical practice guideline ? update. J Clin Oncol. ? 2012Jan 29. ? Reviewed by: ? Radha Walton MD ? Electricity Trader, Molecular Pathology ? [facility] ? Provider: ?? IBRAHIMA COHEN ?Pt. Name: ?? NARDA RIVERA ? Acc #: ?[id number] ?Pt. ? Col Date: ?? 02/22/2014 ?/Sex: ?1950,(63 years),Female ? Rec Date: ?? 02/22/2014 ?LOC: ?SDP ? MOLECULAR GENETIC STUDIES ? _ ? Verified date: ??03/09/14 ??SFA ? Verified by: ?Radha Walton MD ? (Electronic Signature) MARI URIBE 02/22/2014 4:57 PM EST Ibrahima Cohen MD PATHOLOGY/CYTOLOGY O RDERAORION MARI URIBE * Surgical Pathology Report (02/22/2014 4:57 PM EST) Final Diagnosis 00- [id number] ? Location: SDP The signing pathologist has [...] FISH. ??Direct analysis was performed using the Movinto Fun Kit. ??Slide adequacy and signal enumeration were [...] factor receptor 2 testing in breast cancer: Indian Society of Clinical Oncology/College of Indian Pathologists clinical practice guideline update. J Clin Oncol. 2013 Jan 29. Reviewed by: Radha Walton MD Electricity Trader, Molecular Pathology _ Verified date: ??03/09/14 ??SFA [...] perpendicular section of tissue slice I; (2) shared services representative section of tissue slice II with black margin; (3) tissue slice IV including lesion and nearest caudal margin; (04) section of lesion and nearest deep margin tissue slice IV; (5) cranial margin tissue slice IV; (6) lesion and superficial margin, tissue slice IV; (7) section of lesion in tissue slice V; (8) shared services representative section of tissue slice VII; (9) [...] Sectioning reveals no definitive lymph nodes. Sections/Processing: Pipe [employer] [address] Service sections of the more fibrous tissue are [...] Score = 3 ? Total Khalif Score: ?Ames Grade III: ??8-9 points DCIS: ? Ductal [...] . Diagnosis ? Present in nonneoplastic tissue ER/GA/HER2: ? ER/GA/Her2 Comment: ??Please see prior biopsy [id number]. HER2 FISH will be ?repeated on this [...] MD PATHOLOGY/CYTOLOGY O ALETHEA Performing Organization Address City/[facility]/ZIP Co de Phone Number [facility] [place] [address] * Specimen to Pathology (surgical or derm) (02/22/2014 4:57 PM EST) AP Specimen 02/22/2014 4:57 PM EST 02/22/2014 4:57 PM EST Narrative ANTONIAERIS CLAROSJONNYJULITO - 02/22/2014 4:57 PM EST Specimen requisition ordered. ??Separate Pathology report to follow Ibrahima Cohen MD PATHOLOGY/CYTOLOGY O ALETHEA Performing Organization Address [facility] Co de Phone Number MARI URIBE * [...] and non-parallel orientation. The mass was located [id number], 9cm from the nipple and differences in [...] RN) documented in this encounter Care Teams Social Services Coordinator Relationship Specialty Start Date End Date Ag Trent MD [address] [place] [address] PCP - General 02/02/14 documented as of this encounter
--- OUTSIDE RECORDS SUMMARY | 2024-05-05 01:55 | XMS_ITS | Encounter Summary ---
Author Organization [facility] Address [facility] [place] [address] Care Team Providers Care Outside Sales Account Representative Name Role Phone Ag Trent MD Primary Care Provider [phone] Encounter Details Date Type Department Care Team (Late st Contact Info) Description 02/08/2014 Notes Only Care Management [facility] [place] [address] Berkley Soto MSW Social History Tobacco Use Types Packs/Day Years Used Date Smoking Tobacco: Never Assessed Sex and Gender Information Value Date Recorded Sex Assigned at Not on file Gender Identity Not on file Sexual Orientation Not on file documented as of this encounter Progress Notes * Berkley Soto MSW - 02/08/2014 2:48 PM EST [facility] contacted pt to introduce myself and explain [...] to have her radiation treatments at the [facility]. Pt has support from friends and will be accompanied to her surgical consult appt by a friend. [facility] addressed pt's questions and encouraged her to contact me with any additional concerns. P- [facility] will continue to assess and address pt's psychosocial needs . documented in this encounter Plan of Treatment Not on file documented as of this encounter Visit Diagnoses Not on filedocumented in this encounter Care Teams Outside Sales Account Representative Relationship Specialty Start Date End Date Ag Trent MD [address] [place] [address] PCP - General 02/02/14 documented as of this encounter
--- OUTSIDE RECORDS SUMMARY | 2024-05-05 01:55 | XMS_ITS | Encounter Summary ---
Author Organization [facility] Address [facility] [place] [address] Care Team Providers Care Jewelry Appraiser Name Role Phone Ag Trent MD Primary Care Provider [phone] Encounter Details Date Type Department Care Team (Latest Contact Info) Description 02/08/2014 11:26 AM EST - 02/08/2014 11:59 PM EST [place] [address] Ibrahima Cohen MD [facility] [place] [address] Invasive ductal carcinoma of breast, left Discharge [...] metabolic panel (non-fasting) (02/08/2014 11:38 AM EST) [facility] Glucose 113 60 - 199 mg/dL CERNER MILLENNIUM Comment:Diabetes: >=200 mg/d L plus symptoms Blood Urea Nitrogen 18 8 - 18 mg/dL CERNER MILLENNIUM Creatinine 0.75 0.70 - 1.20 mg/dL CERNER MILLENNIUM Comment: Please note that the pediatric reference intervals supplied above were not validated at [facility]. Results from pediatric patients [...] the following links into your internet browser. [email or web address] Blood specimen (specimen) 02/08/2014 11:38 AM EST 02/08/2014 11:45 AM EST Narrative Resulting Agency Comment Spec In Lab Ibrahima Cohen MD CHEMISTRY ORDERABLES MARI URIBE documented in this encounter Visit Diagnoses Diagnosis Invasive ductal carcinoma of breast, left documented in this encounter Care Teams Jewelry Appraiser Relationship Specialty Start Date End Date Ag Trent MD [address] [place] [address] PCP - General 02/02/14 documented as of this encounter
--- OUTSIDE RECORDS SUMMARY | 2024-05-05 01:55 | XMS_ITS | Encounter Summary ---
Author Organization [facility] Address [facility] [place] [address] Care Team Providers Care Foil Stamp Operator Name Role Phone Latoya Quintanilla MD Primary Care Provider Encounter Details Date Type Department Care Team (Latest Contact Info) Description 01/24/2014 2:00 PM EDT - 01/24/2014 11:59 PM EDT Hospital Encounter XRay at [address] [place] [address] CLIN[address], [address] [place] Discharge Disposition: Home Social [...] on filedocumented in this encounter Care Teams Foil Stamp Operator Relationship Specialty Start Date End Date Latoya Quintanilla MD [address] [place] [address] PCP - General 02/20/10 02/01/14 documented as of this encounter
--- OUTSIDE RECORDS SUMMARY | 2024-05-05 01:55 | XMS_ITS | Encounter Summary ---
Author Organization [facility] Address [facility] [place] [address] Care Team Providers Care Janitor Custodian Name Role Phone Ag Trent MD Primary Care Provider [phone] Encounter Details Date Type Department Care Team (Late st Contact Info) Description 02/04/2014 Orders Only Hematology [place] [address] Ibrahima Cohen MD [facility] [place] [address] Invasive ductal carcinoma of breast, left (Primary [...] metabolic panel (non-fasting) (02/08/2014 11:38 AM EST) [facility] Glucose 113 60 - 199 mg/dL CERNER MILLENNIUM Comment:Diabetes: >=200 mg/d L plus symptoms Blood Urea Nitrogen 18 8 - 18 mg/dL CERNER MILLENNIUM Creatinine 0.75 0.70 - 1.20 mg/dL CERNER MILLENNIUM Comment: Please note that the pediatric reference intervals supplied above were not validated at [facility]. Results from [...] the following links into your internet browser. [email or web address] [email or web address] Blood specimen (specimen) 02/08/2014 11:38 AM EST [...] contrast enhancement curve analysis was performed, using On The Fleaa software. ?? Background enhancement pattern (first post [...] left documented in this encounter Care Teams Janitor Custodian Relationship Specialty Start Date End Date Ag Trent MD [address] [place] [address] PCP - General 02/02/14 documented as of this encounter
--- OUTSIDE RECORDS SUMMARY | 2024-05-05 01:55 | XMS_ITS | Encounter Summary ---
Author Organization [facility] Address [facility] [place] [address] Care Team Providers Care Cake Inspector Name Role Phone Ag Trent MD Primary Care Provider [phone] Encounter Details Date Type Department Care Team (Late st Contact Info) Description 02/17/2014 Orders [place] [id number] Ibrahima Cohen MD [facility] [place] [address] [place] [address] Malignant neoplasm of breast (female), unspecified site [...] site documented in this encounter Care Teams Cake Inspector Relationship Specialty Start Date End Date Ag Trent MD [address] [place] [address] PCP - General 02/02/14 documented as of this encounter
--- OUTSIDE RECORDS SUMMARY | 2024-05-05 01:55 | XMS_ITS | Encounter Summary ---
Author Organization [facility] Address [facility] [place] [address] Care Team Providers Care Medical Payment Poster Name Role Phone Ag Trent MD Primary Care Provider [phone] Encounter Details Date Type Department Care Team (Latest Contact Info) Description 02/02/2014 9:00 AM EST - 02/02/2014 11:59 PM EST Hospital [place] [phone] Abnormal mammogram, unspecified Social History Tobacco Use [...] and approve the above interpretation. Home phone: [phone] Film and interpretation reviewed by the attending [...] specimens obtained. ?? A 17-gauge Ultracore (US) Oakley marker clip was placed. Cranio-caudal and lateral [...] biopsy specimens obtained. A 17-gauge Ultracore (US) Oakley marker clip was placed. Cranio-caudal and lateral [...] images/test andapprove the above interpretation. Home phone: [phone] Film and interpretation reviewed by the attending Nancy Cam MD IMG MAMM O ORDERABLES * Molecular Genetics Report (02/02/2014 9:58 AM EST) Molecular Report ? [facility] ? Provider: ?? TAVARES MCGHEE ?Pt. Name: ?? KARIN, NARDA ? Acc #: ?[id number] ?Pt. ? Col Date: ?? 02/02/2014 ? [...] ??Direct analysis was ? performed using the Prim’Vision Kit. ??Slide adequacy and signal enumeration ? [...] factor receptor 2 testing in breast cancer: [place] Society of Clinical ? Oncology/College of [place] Pathologists clinical practice guideline ? update. J Clin Oncol.2013 Nov . ? TEST: HER2 (C-erbB-2) Immunohistochemistry ? RESULT: Equivocal (2+) immunoreactivity* ? Distribution ? Intensity ? % of cells ? C-erbB-2 (4B5) ?Incomplete membrane ??Weak ?10-20% ? [facility] ? Provider: ?? TAVARES MCGHEE ?Pt. Name: ?? FRAZIER, NARDA ? Acc #: ?[id number] ?Pt. ? Col Date: ?? 02/02/2014 ? /Sex: ?1950,(63 years),Female ? Rec Date: ?? 02/02/2014 ? LOC: ?3S ? MOLECULAR GENETIC STUDIES ? *Vhi0Rht Overexpression Assessment ?------- ? Interpretation ?Score ?Criteria [...] ? assay was performed according to the retirement specialist? s instructions using an ? Anti-HER2 (4B5) antibody. ? Reviewed by: ? Wicho Leiva MD ? Verified date: ??02/10/14 ??LJC ? Verified by: ?Abbie LANGSTON, Wicho Hassan ? (Electronic Signature) [facility] 02/02/2014 9:58 AM EST Tavares Mcghee MD PATHOLOGY/CYTOLOGY O RDERABLES [facility] * Immunohistochemistry Report (02/02/2014 9:58 AM EST) Immunohistochemistry Report ? [facility] ? Provider: ?? TAVARES MCGHEE ?Pt. Name: ?? NARDA FRAZIER ? Acc #: ?[id number] ?Pt. ? Col Date: ?? 02/02/2014 ? [...] with immunostaining) ? Stain Intensity: Strong ? MS immunoreactivity: ??Positive (11-90% cancer cells with immunostaining) [...] The assays were performed according to ? [facility] ? Provider: ?? TAVARES MCGHEE ?Pt. Name: ?? NARDA FRAZIER ? Acc #: ?[id number] ?Pt. ? Col Date: ?? 02/02/2014 ? /Sex: ?1950,(63 years),Female ? Rec Date: ?? 02/02/2014 ? LOC: ?3S ? IMMUNOHISTOCHEMISTR Y ? the retirement specialist? s instructions using Anti-ER (SP1) and Anti-MS (16) ? antibodies. ? 02/04/14 ? KIM ? 02/04/14 Verified by: ? Wicho Leiva MD ? Pathologist ? (Electronic Signature) ? The attending pathologist whose signature appears on this report has ? reviewed all diagnostic slides and has edited the gross and/or ? microscopic portion of the report in rendering the final pathologic ? diagnosis. [facility] 02/02/2014 9:58 AM EST Tavares Mcghee MD PATHOLOGY/CYTOLOGY O RDERAORION Performing Organization Address City/State/[facility] Co de Phone Number [facility] * Surgical Pathology Report (02/02/2014 9:58 AM EST) Final Diagnosis 00- [id number] ? Location: 3S The signing pathologist has [...] FISH. ??Direct analysis was performed using the Prim’Vision Kit. ??Slide adequacy and signal enumeration were [...] factor receptor 2 testing in breast cancer: [place] Society of Clinical Oncology/College of [place] Pathologists clinical practice guideline update. J Clin Oncol.2013 Jan 29. TEST: HER2 (C-erbB-2) Immunohistochemistry RESULT: Equivocal (2+) immunoreactivity* ?Distribution ? Intensity ? % of cells ?C-erbB-2 (4B5) ?Incomplete membrane ??Weak ?10-20% *[id number] Overexpression Assessment ?------- ? Interpretation ?Score ?Criteria [...] ??The assay was performed according to the retirement specialist 's instructions using an Anti-HER2 (4B5) antibody. [...] cancer cells with immunostaining) ?Stain Intensity: Strong MS immunoreactivity: ??Positive (11-90% cancer cells with immunostaining) [...] were performed . Diagnosis according to the retirement specialist ??'s instructions using Anti-ER (SP1) and Anti-MS (16) antibodies. 02/04/14 KIM 02/04/14 Verified by: [...] final pathologic diagnosis. Comment Studies for ER, MS, and HER2 have been ordered; results will be issued in separate reports. 02/10/2014 1:10 PM EST [facility] BREAST STRUCTURE / Unknown 02/02/2014 9:58 AM EST 02/02/2014 9:58 AM EST Tavares Mcghee MD PATHOLOGY/CYTOLOGY O ALETHEA Performing Organization Address City/State/[facility] Co id Phone Number [facility] [place] [address] documented in this encounter Visit Diagnoses Diagnosis Abnormal mammogram, unspecified documented in this encounter Care Teams Medical Payment Poster Relationship Specialty Start Date End Date Ag Trent MD [address] [place] [address] PCP - General 02/02/14 documented as of this encounter
--- OUTSIDE RECORDS SUMMARY | 2024-05-05 01:55 | XMS_ITS | Encounter Summary ---
Author Organization [facility] [place] [address] Care Team Providers Care Milk Route Supervisor Name Role Phone Latoya Quintanilla MD Primary Care Provider [phone] Encounter Details Date Type Department Care Team (Late st Contact Info) Description 11/15/2011 [place] [address] Hoang Gonzalez MD Social History Tobacco Use Types Packs/Day [...] on filedocumented in this encounter Care Teams Milk Route Supervisor Relationship Specialty Start Date End Date Latoya Quintanilla MD [address] [place], [place] [id number] PCP - General 02/20/10 02/01/14 documented as of this encounter
--- OUTSIDE RECORDS SUMMARY | 2024-05-05 01:55 | XMS_ITS | Encounter Summary ---
Author Organization [facility] Address [facility] [place] [address] Care Team Providers Care Corn Husker Machine Operator Name Role Phone Ag Trent MD Primary Care Provider [phone] Encounter Details Date Type Department Care Team (Latest Contact Info) Description 02/08/2014 11:25 AM EST Hospital Encounter XRay at [address] [place] [address] Invasive ductal carcinoma of breast, left Social [...] left documented in this encounter Care Teams Corn Husker Machine Operator Relationship Specialty Start Date End Date Ag Trent MD [address] [place] [address] PCP - General 02/02/14 documented as of this encounter
--- OUTSIDE RECORDS SUMMARY | 2024-05-05 01:55 | XMS_ITS | Encounter Summary ---
Author Organization [facility] Address [facility] [place] [address] Care Team Providers Care Event Operations Manager Name Role Phone Ag Trent MD Primary Care Provider [phone] Reason for Visit * Reason Comments Breast Cancer Encounter Details Date Type Department Care Team (Late st Contact Info) Description 02/10/2014 2:00 PM EST Office Visit Hematology [place] [address] Ibrahima Cohen MD [facility] [place] [address] Malignant neoplasm of left female breast Discharge [...] contact information. She questioned massage (goes monthly, [place] massage) after surgery. She will send us [...] understands she will meet with medical (prefers [facility]) and radiation (prefers [facility])oncologists after surgery. 4. Contact phone number for questions or concerns in the immediate post- operative period. 5. Post Breast Surgery Exercises, handout created by physical therapy at [facility]. * Ibrahima Cohen MD - 02/10/2014 2:52 [...] and asked excellent questions. She lives in [facility] near [facility]. On physical exam she is alert [...] site documented in this encounter Care Teams Event Operations Manager Relationship Specialty Start Date End Date Ag Trent MD [address] [place] [address] PCP - General 02/02/14 documented as of this encounter
--- OUTSIDE RECORDS SUMMARY | 2024-05-05 01:55 | XMS_ITS | Encounter Summary ---
Author Organization [facility] [address] Care Team Providers Care Awning Frame Maker Name Role Phone Latoya Quintanilla MD Primary Care Provider [phone] Encounter Details Date Type Department Care Team (Late st Contact Info) Description 01/21/2014 [place] [address] Hoang Gonzalez MD Social History Tobacco Use [...] on filedocumented in this encounter Care Teams Awning Frame Maker Relationship Specialty Start Date End Date Latoya Quintanilla MD [address] [place] [address] PCP - General 02/20/10 02/01/14 documented as of this encounter
--- OUTSIDE RECORDS SUMMARY | 2024-05-05 01:55 | XMS_ITS | Encounter Summary ---
Author Organization [facility] Address [facility] [place] [place] [address] Care Team Providers Care Production Checker Name Role Phone Latoya Quintanilla MD Primary Care Provider [phone] Encounter Details Date Type Department Care Team (Late st Contact Info) Description 02/01/2014 [place] [address] Noe Tao MD [facility] [place] [address] Social History Tobacco Use Types Packs/Day Years [...] on filedocumented in this encounter Care Teams Production Checker Relationship Specialty Start Date End Date Latoya Quintanilla MD [address] [place] [address] PCP - General 02/20/10 02/01/14 documented as of this encounter
--- OUTSIDE RECORDS SUMMARY | 2024-05-05 01:55 | XMS_ITS | Encounter Summary ---
Author Organization [facility] Address [facility] [place] [address] Care Team Providers Care Healthcare Representative Name Role Phone Ag Trent MD Primary Care Provider [phone] Encounter Details Date Type Department Care Team (Late st Contact Info) Description 02/03/2014 Telephone [place]ology [place] [address] Anita Garcia RN Social History Tobacco Use [...] (left breast U/S guided biopsy 02/02/[address] [facility] Contacted patient after Dr. Mcghee informed her [...] Contact information provided for CPB and this auto service writer. documented in this encounter Plan of Treatment Not on file documented as of this encounter Visit Diagnoses Not on filedocumented in this encounter Care Teams Healthcare Representative Relationship Specialty Start Date End Date Ag Trent MD [address] [place] [address] PCP - General 02/02/14 documented as of this encounter
--- OUTSIDE RECORDS SUMMARY | 2024-05-05 01:55 | XMS_ITS | Encounter Summary ---
Author Organization [facility] Address [facility] [place] [address] Care Team Providers Care Division Road Supervisor Name Role Phone Ag Trent MD Primary Care Provider [phone] Encounter Details Date Type Department Care Team (Late st Contact Info) Description 02/11/2014 [place] [address] Berkley Soto MSW Social History Tobacco Use Types Packs/Day Years Used Date Smoking Tobacco: Never Assessed Sex and Gender Information Value Date Recorded Sex Assigned at Not on file Gender Identity Not on file Sexual Orientation Not on file documented as of this encounter Progress Notes * Berkley Soto MSW - 02/11/2014 1:40 PM EST OFFICE OF CARE MANAGEMENT/CONTINUING SHEAR TENDER Reason for referral: Narda Rivera is a 63 year old, female who was seen in the multidisciplinary breast care clinic for a surgical consult with Dr. 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 After meeting with Dr. Cohen, pt has decided to have a lumpectomy and sentinel node dissection [place] [facility] Directives: Pt believes she has completed a living will which is on file at [facility]. Pt was given the [place] AD forms so she can designate a DPOA for health care. Pt would like Enrique Giffordmichele, a friend, to make her health care decisions for her in the event she cannot make them for herself. An ACP notewas written documenting this information. Living arrangements/social supports: Pt lives alone in [place], [place]. Pt states has support from friends and is accompanied by a friend to today's appt. Insurance/Finances: Pt is retired and receives Medicare, [place] [employer] and has a Part D drug plan through [employer]. Pt states she is not concerned about finances. Tobacco/drug/alcohol history: Pt states she does not smoke or drink. Adjustment to illness/mental health concerns: Pt states she feels better after meeting with Dr. Cohen. Pt has support from friends. [facility] reviewed some of the support and services [...] on filedocumented in this encounter Care Teams Division Road Supervisor Relationship Specialty Start Date End Date Ag Trent MD [address] [place] [address] PCP - General 02/02/14 documented as of this encounter
--- OUTSIDE RECORDS SUMMARY | 2024-05-05 01:55 | XMS_ITS | Encounter Summary ---
Author Organization [facility]ly [facility] Address [facility] [place] [address] Care Team Providers Care Foreign Agent Name Role Phone Ag Trent MD Primary Care Provider Encounter Details Date Type Department Care Team (Late st Contact Info) Description 02/17/2014 Orders Only [place] [address] [facility] [place] [address] Malignant neoplasm of breast (female), unspecified site [...] site documented in this encounter Care Teams Foreign Agent Relationship Specialty Start Date End Date Ag Trent MD [address] [place] [address] PCP - General 02/02/14 documented as of this encounter
--- OUTSIDE RECORDS SUMMARY | 2024-05-05 01:55 | XMS_ITS | Encounter Summary ---
Author Organization [facility] [place] [address] Care Team Providers Care Gauge Checker Name Role Phone Latoya Quintanilla MD Primary Care Provider [phone] Encounter Details Date Type Department Care Team (Late st Contact Info) Description 01/24/2014 Orders [place] [id number] Ag Trent MD [address] [place] [address] Social History Tobacco Use Types [...] MAMMOGRAM (PERFORMED ON 01/18/14 AND 01/21/14) FROM [facility] DATED 01/25/14: ?? DIAGNOSTIC IMAGING SUMMARY: ?? [...] to consult on this patient by Dr. gA Trent because he believes a review of this study may change or alter the care of this patient. ?? TECHNIQUE: Mammograms from [facility] dated 01/18/14 and 01/21/14 are available for [...] OUTSIDE MAMMOGRAM (PERFORMED ON 01/18/14 AND 01/21/14)FROM [facility] DATED 01/25/14: DIAGNOSTIC IMAGING SUMMARY: LEFT BREAST [...] care of this patient. TECHNIQUE: Mammograms from [facility] dated 01/18/14 and 01/21/14 are availablefor interpretation. [...] on filedocumented in this encounter Care Teams Gauge Checker Relationship Specialty Start Date End Date Latoya Quintanilla MD [address] [place] [address] PCP - General 02/20/10 02/01/14 documented as of this encounter
--- OUTSIDE RECORDS SUMMARY | 2024-05-05 01:55 | XMS_ITS | Encounter Summary ---
Author Organization [facility] [place] [address] Care Team Providers Care Automation Application Engineer Name Role Phone Ag Trent MD Primary Care Provider [phone] Encounter Details Date Type Department Care Team (Late st Contact Info) Description 02/11/2014 [place] [address] Berkley Soto MSW Social History Tobacco Use [...] directives, such as a Durable Power of Supervisor [employer] for Health Care. DETERMINATION OF CAPACITY The [...] on filedocumented in this encounter Care Teams Automation Application Engineer Relationship Specialty Start Date End Date Ag Trent MD [address] [place] [address] PCP - General 02/02/14 documented as of this encounter
[2024-05-05 15:21] LABS: Calculated LDL 93 mg/dL (<100); Cholesterol 183 mg/dL (<200); Ferritin 29 ng/mL (8-252); HDL Cholesterol 67 mg/dL (40-60); TSH 0.26 uIU/mL (0.36-3.74); Triglyceride 116 mg/dL (<150)
[2024-05-05 15:22] LABS: Vitamin D 25 Total 77.3 ng/mL (30-100)
[2024-05-05 16:12] LABS: Iron 110 ug/dL (50-170); Total Iron Binding Capacity 261 ug/dL (250-450); Transferrin Sat 42 % (15-50)
[2024-05-05 17:14] LABS: C-Reactive Protein < 0.50 mg/dL (<or=0.5); FREE T4 1.27 ng/dL (0.76-1.46)
[2024-05-05 22:10] LABS: T3,Free 3.5 pg/mL (2.8-5.3)
[2024-05-07 22:06] LABS: Zinc, S 77 mcg/dL (60-106)
[2024-05-08 11:40] LABS: Apolipoprotein A1, S 160 mg/dL (>=140); Apolipoprotein B, S 84 mg/dL (See Comment); Apolipoprotein B/A 1 ratio 0.5 (See Comment)
[2024-05-11 22:22] LABS: Free Retinol (Vitamin A) 49.1 mcg/dL (32.5-78.0)
== END 2024-05-05 01:17 | disposition home or self-care (01) ==
LOC: LBO 01:16
PROVIDERS: PCP Family Medicine; Visit Provider Naturopath
DX: E78.5 Hyperlipidemia, unspecified (principal); L65.9 Nonscarring hair loss, unspecified; E55.9 Vitamin D deficiency, unspecified
CPT/HCPCS: 36415; 80061; 82172; 82306; 84630; 82728; 83540; 83550; 84439; 84443; 84481; 84590; 86140

== ENCOUNTER 2024-05-10 01:27 | Outpatient (CLI) | payer MEDICARE, BC, SELFPAY ==
--- NOTE | 2024-05-10 | DI.MAMMO_ITS ---
Exam(s) MG MAMMO SCREENING 60 MIN DUR EXAM: MG MAMMO SCREENING 60 MIN DUR CLINICAL HISTORY: Screening, Z12.31; personal h/o breast CA, Z85.3. TECHNIQUE: Bilateral full field digital CC and MLO mammographic images were obtained with 3D tomosyn thesis and utilizing computer aided detection (CAD). COMPARISON: Prior mammograms were reviewed. Prior left breast lumpectomy for malignancy. FINDINGS: Fibroglandular tissue pattern is again noted be moderately dense. Left breast lumpectomy site remains stable. There are no new spiculated masses nor new malignant appearing microcalcification groups. IMPRESSION: No radiographic evidence of malignancy. Stable appearance of left breast upper outer quadrant lumpect uyen site. BI-RADS Category 2 - Benign Findings Breast Density - Category C - Heterogeneously dense Breast density Category C or D implies that the patient has dense breast tissue. Dense breast tissue can make it harder to find cancer on a mammogram. Dense breast tissue is also associated with an incr eased risk of breast cancer. This information about the result of the mammogram report was provided to the patient to raise their awareness. Use this report when you speak with the patient about their risks for breast cancer, which includes their family history. At that time, you may recommend additional screening tests (Ultrasoun d or MRI) as these tests may add significant information. A negative radiographic report should not delay biopsy if a dominant or clinically suspicious mass is present. Up to ten percent of cancers are not identified on mammography. A negative report may reinforce clinical impression. Adenosis and dense breasts may obscure an underlying neoplasm. False positive reports average 6 to 10%. Patient will receive a letter notifying them of these results.
== END 2024-05-10 01:47 ==
LOC: DI 01:27
PROVIDERS: PCP Family Medicine; Visit Provider Naturopath
DX: Z12.31 Encounter for screening mammogram for malignant neoplasm of breast (principal); Z85.3 Personal history of malignant neoplasm of breast; R92.333 Mammographic heterogeneous density, bilateral breasts; D24.2 Benign neoplasm of left breast
CPT/HCPCS: 77063; 77067

== ENCOUNTER 2024-07-29 01:37 | Outpatient (CLI) | payer MEDICARE, BC, SELFPAY ==
--- NOTE | 2024-07-29 | DI.DEXA_ITS ---
Exam(s) XR DEXA BONE DENSITY W/WO INESSA EXAM: XR DEXA BONE DENSITY W/WO INESSA CLINICAL HISTORY: Age-related osteoporosis wo current pathological fx, M81.0 TECHNIQUE: COMPARISON: DX DEXA BONE DENSITY WITH INESSA from 02/02/2015 FINDINGS: Lateral Spine Image: Unremarkable. No compression deformities identified. Left hip: Total T-Score: -0.2. This compares to -1.0 on the prior examination. Total Z-Score: -0.2 T- and Z-scores: Findings are consistent with osteopenia. Lumbar Spine: Total T-Score: -0.4. This compares to 0.1 on the prior examination. Total Z-Score: 2.1 T- and Z-scores: Within normal limits. IMPRESSION: No evidence of osteoporosis.
== END 2024-07-29 01:57 ==
LOC: DI 01:38
PROVIDERS: PCP Family Medicine; Visit Provider Naturopath
DX: M81.0 Age-related osteoporosis without current pathological fracture (principal)
CPT/HCPCS: 77080